=== PATIENT | female | born 1940 | race Caucasian/White ===

== ENCOUNTER → 2016-10-27 | Outpatient (CLI) | payer MEDICARE, BC ==
--- NOTE | 2016-10-27 09:41 | US ---
EXAMINATION TYPE: US Abdomen Limited DATE OF EXAM: 10/27/2016 9:25 AM COMPARISON: Previous study dated 09/25/2015. CLINICAL HISTORY: K74.60 Cirrhosis Of Liver. EXAM MEASUREMENTS: Liver Length: 17.5cm Gallbladder Wall: 0.3cm CBD: 0.5cm Right Kidney: 11.0 x 5.0 x 4.6cm ANATOMY: Pancreas: wnl Liver: wnl Color flow patency within the portal vein: yes Portal Vein Flow: Hepatopetal Gallbladder: borderline wall thickness, otherwise wnl Evidence for sonographic Sahni's sign: no CBD: 5 mm Right Kidney: wnl Ascites noted? Scant amount near dome The pancreas is unremarkable. The liver is normal without biliary dilatation. There is thickening of the gallbladder wall which measures 3.1 mm. There are no stones identified. Distal common hepatic duct measures 5.3 mm. The right kidney is normal. Visualized portions of the aorta and IVC are unremarkable. IMPRESSION: MILD THICKENING OF THE GALLBLADDER WALL. PLEASE CORRELATE CLINICALLY TO EXCLUDE ACALCULOUS CHOLECYSTITIS. MTDD
== END ==
LOC: RADUSWWP 08:37
DX: K74.60 Unspecified cirrhosis of liver (principal)
CPT/HCPCS: 76705; 93976

== ENCOUNTER → 2016-10-30 | Outpatient (CLI) | payer MEDICARE, BC ==
[2016-10-30 15:19] LABS: CH 29.6; HCT 45.9 % (34.0-46.0); HDW 2.49; HGB 15.4 gm/dL (11.4-16.0); MCH 30.1 pg (25.0-35.0); MCHC 33.5 g/dL (31.0-37.0); MCV 89.9 fL (80.0-100.0); Mean Platelet Volume 8.3; RDW 13.9 % (11.5-15.5); WBC 6.4 k/uL (3.8-10.6)
[2016-10-30 15:28] LABS: Bilirubin, Delta 0.3 mg/dL (0.0-0.2); Total Bilirubin 0.6 mg/dL (0.2-1.3); Total Protein 7.7 g/dL (6.3-8.2)
[2016-10-30 15:33] LABS: INR 1.3 (<1.1); Partial Thromboplastin Time 26.4 sec (22.0-30.0); Prothrombin Time 13.1 sec (9.0-12.0)
== END | disposition home or self-care (01) ==
LOC: LABWHC1 14:43
PROVIDERS: ATTEND Physician Assistant
DX: K74.60 Unspecified cirrhosis of liver (principal)
CPT/HCPCS: 36415; 80076; 82105; 85027; 85610; 85730

== ENCOUNTER 2017-04-07 14:31 | Emergency (ER) | payer MEDICARE, BC ==
[2017-04-07] MEDS ORDERED: KETOROLAC 60 MG/2 ML VIAL IM STA (16:29)
[2017-04-07] MEDS ORDERED: DIAZEPAM 5 MG/ML 2 ML SYRINGE IM ONE (16:29)
--- NOTE | 2017-04-07 16:32 | ED ---
General Adult HPI - General Chief complaint: Back Pain/Injury Stated complaint: discharge vag/back & neck pain/urinating excessive Time Seen by Provider: 04/07/17 15:00 Source: patient, RN notes reviewed Mode of arrival: wheelchair Limitations: no limitations - History of Present Illness Initial comments: This is a 76-year-old female who presents emergency Department complaining of a two-week history of lower back pain which is across the whole back. Patient states it's worse with bending worse with twisting. Patient states it's better when she lies still. Patient denies any numbness weakness. Patient states she' s had chronic back problems her whole life. Patient denies any recent injury or trauma. Patient also is complaining about urinary frequency for the last 2 weeks. Patient also plays is some dysuria but no hematuria. Patient denies any fever chills. Patient denies any abdominal pain patient denies nausea vomiting diarrhea. Patient told the nurse that she has had vaginal discomfort over the last couple weeks however patient's states she does not have any currently. - Related Data Home Medications Medication Instructions Recorded Confirmed Albuterol Sulfate [Proair Hfa] 2 puff INHALATION RT-Q4H PRN 03/23/14 04/07/17 Levothyroxine Sodium [Synthroid] 25 mcg PO DAILY 03/23/14 04/07/17 Lisinopril [Zestril] 20 mg PO DAILY 03/23/14 04/07/17 Montelukast [Singulair] 10 mg PO HS 03/23/14 04/07/17 Oxybutynin Chloride [Ditropan XL] 10 mg PO DAILY 03/23/14 04/07/17 Diazepam 5 mg PO BID 06/13/15 04/07/17 HYDROcodone/APAP 5-325MG [[place] 1 tab PO Q6H PRN 06/13/15 04/07/17 5-325] Multivit-Min/FA/Lycopen/Lutein 1 tab PO DAILY 06/13/15 04/07/17 [Centrum Silver Tablet] Atenolol [Tenormin] 25 mg PO DAILY 04/07/17 04/07/17 Fluticasone Propionate [Flonase 1 spray EA NOSTRIL DAILY PRN 04/07/17 04/07/17 Allergy Relief] Niacin 500 mg PO BID 04/07/17 04/07/17 Sodium Chloride [[place]] 1 spray EA NOSTRIL DAILY PRN 04/07/17 04/07/17 amLODIPine [Norvasc] 2.5 mg PO BID 04/07/17 04/07/17 Previous Rx's Medication Instructions Recorded Apixaban [Eliquis] 5 mg PO BID #60 tab 06/13/15 Sulfamethox-Tmp 800-160Mg [Bactrim 1 each PO Q12HR #14 tab 04/07/17 DS 800-160 mg] Allergies Allergy/AdvReac Type Severity Reaction Status Date / Time venom-wasp [Wasp Venom] Allergy Severe Swelling Verified 04/07/17 15:03 adhesive Allergy Unknown Rash/Hives Verified 04/07/17 15:03 amoxicillin [Amoxicillin] Allergy Unknown Rash/Hives Verified 04/07/17 15:03 fenofibrate nanocrystallized Allergy Unknown Rash/Hives Verified 04/07/17 15:03 [From Tricor] fenofibrate,micronized Allergy Unknown Rash/Hives Verified 04/07/17 15:03 [From Tricor] hydrochlorothiazide Allergy Unknown Rash/Hives Verified 04/07/17 15:03 Neuromuscular Blockers, Allergy Unknown Rash/Hives Verified 04/07/17 15:03 Steroidal [Steroidal Neuromuscular Blockers] Penicillins Allergy Unknown Rash/Hives Verified 04/07/17 15:03 shellfish derived Allergy Unknown SKIN RED Verified 04/07/17 15:03 AND WARM simvastatin [From Zocor] Allergy Unknown Rash/Hives Verified 04/07/17 15:03 Nzdcrko-Yaq-Czc Reductase Allergy Unknown Rash/Hives Verified 04/07/17 15:03 Inhibitor venom-honey bee Allergy Unknown Swelling Verified 04/07/17 15:03 [bee venom (honey bee)] ciprofloxacin [From Cipro] Allergy Unknown Verified 04/07/17 15:03 ciprofloxacin HCl Allergy Unknown Verified 04/07/17 15:03 [From Cipro] clarithromycin Allergy Unknown Verified 04/07/17 16:37 minocycline Allergy Unknown Verified 04/07/17 16:37 soy Allergy Unknown Verified 04/07/17 16:37 talc Allergy Unknown Verified 04/07/17 16:37 walnut Allergy Unknown Verified 04/07/17 16:37 Review of Systems ROS Statement: Those systems with pertinent positive or pertinent negative responses have been documented in the HPI. ROS Other: All systems not noted in ROS Statement are negative. Past Medical History Past Medical History: Atrial Fibrillation, Asthma, Diabetes Mellitus, Deep Vein Thrombosis (DVT), Hyperlipidemia, Hypertension, Liver Disease, Osteoarthritis ( OA), Pulmonary Embolus (PE) Additional Past Medical History / Comment(s): VERTIGO, CIRRHOSIS, DIABETES ( DIET CONTROLLED), OVER ACTIVE BLADDER, DVT & PE AFTER LEG FX. WEARS DENTAL SPACER TO PREVENT GRINDING TEETH. History of Any Multi-Drug Resistant Organisms: None Reported Past Surgical History: Back Surgery, Breast Surgery, Hysterectomy, Joint Replacement, Orthopedic Surgery Additional Past Surgical History / Comment(s): CATARACTS, RT BREAST FATTY TUMOR , ROSI KNEE REPLACEMENT, ROSI SHOULDER REPLACEMENT, NECK FUSION, ROSI CARPAL TUNNEL , ROSI TRIGGER FINGER, RT FOOT BONE SPUR, RIGHT LEG FX. Past Anesthesia/Blood Transfusion Reactions: Motion Sickness, Postoperative Nausea & Vomiting (PONV) Past Psychological History: No Psychological Hx Reported Smoking Status: Former smoker Past Alcohol Use History: None Reported Past Drug Use History: None Reported General Exam - General Exam Comments Initial Comments: GENERAL: Patient is well-developed and well-nourished. Patient is nontoxic and well- hydrated and is in mild distress ENT: Neck is soft and supple. No significant lymphadenopathy is noted. Oropharynx is clear. Moist mucous membranes. Neck has full range of motion without eliciting any pain. EYES: The sclera were anicteric and conjunctiva were pink and moist. Extraocular movements were intact and pupils were equal round and reactive to light. Eyelids were unremarkable. PULMONARY: Unlabored respirations. Good breath sounds bilaterally. No audible rales rhonchi or wheezing was noted. CARDIOVASCULAR: There is a regular rate and rhythm without any murmurs gallops or rubs. ABDOMEN: Soft and nontender with normal bowel sounds. No palpable organomegaly was noted. There is no palpable pulsatile mass. SKIN: Skin is clear with no lesions or rashes and otherwise unremarkable. NEUROLOGIC: Patient is alert and oriented x3. Cranial nerves II through XII are grossly intact. Motor and sensory are also intact. Normal speech, volume and content. Symmetrical smile. MUSCULOSKELETAL: Normal extremities with adequate strength and full range of motion. Patient's back was nontender to palpation LYMPHATICS: No significant lymphadenopathy is noted PSYCHIATRIC: Normal psychiatric evaluation. Limitations: no limitations Course Vital Signs 04/07/17 04/07/17 15:00 18:43 Temperature 98.1 F 97.7 F Pulse Rate 67 60 Respiratory 20 18 Rate Blood Pressure 135/70 150/72 O2 Sat by Pulse 98 98 Oximetry Medical Decision Making - Medical Decision Making Patient states her pain is down to a 2 out of 10 after the medication. - Lab Data Lab Results 04/07/17 Range/Units 16:34 Urine Color Light Yellow Urine Appearance Clear (Clear) Urine pH 6.0 (5.0-8.0) Ur Specific [place] 1.003 (1.001-1.035) Urine Protein Negative (Negative) Urine Glucose (UA) Negative (Negative) Urine Ketones Negative (Negative) Urine Blood Negative (Negative) Urine Nitrite Negative (Negative) Urine Bilirubin Negative (Negative) Urine Urobilinogen <2.0 (<2.0) mg/dL Ur Leukocyte Esterase Large H (Negative) Urine RBC 1 (0-5) /hpf Urine WBC 29 H (0-5) /hpf Urine Bacteria Many H (None) /hpf Disposition Clinical Impression: Strain of lumbar region, Urinary tract infection Disposition: HOME SELF-CARE Condition: Good Instructions: Urinary Tract Infection in Women (ED), Acute Low Back Pain (ED) Prescriptions: Sulfamethox-Tmp 800-160Mg [Bactrim DS 800-160 mg] 1 each PO Q12HR #14 tab Referrals: Shea Amezcua MD [Primary Care Provider] - 1-2 days Time of Disposition: 18:36
[2017-04-07] MEDS ORDERED: ORPHENADRINE 30 MG/ML 2 ML VIAL IM STA (16:45)
[2017-04-07 16:50] LABS: Appearance,Urine Clear (Clear); Bacteria,Urine Many /hpf; Bilirubin,Urine Negative (Negative); Glucose,Urine (UA) Negative (Negative); Ketones,Urine Negative (Negative); Leukocyte Esterase,Urine Large (Negative); Nitrite,Urine Negative (Negative); Particle Count 5362; Protein,Urine Negative (Negative); RBC,Urine 1 /hpf (0-5); Specific Gravity,Urine 1.003 (1.001-1.035); UA Billing (MACRO vs. MICRO) MICRO; Urobilinogen,Urine <2.0 mg/dL (<2.0); WBC,Urine 29 /hpf (0-5)
[2017-04-07] MEDS ORDERED: cefTRIAXone 250 MG VIAL IM STA (17:30)
[2017-04-07] MEDS ORDERED: cefTRIAXone 1,000 MG VIAL (IM USE) IM ONE (17:45)
--- NOTE | 2017-04-07 17:50 | XR ---
EXAMINATION TYPE: XR lumbosacral spine min 4V DATE OF EXAM: 04/07/2017 COMPARISON: NONE HISTORY: Back pain TECHNIQUE: 5 views FINDINGS: There are rods and screws fusing posteriorly the lumbar spine from L4 to L2. There is disc prosthesis at L3-4. There is narrowing of disc spaces throughout the lumbar spine with sclerosis seen at L4-5 and L5-S1 discs. I see no compression fracture. Abdominal aorta is atheromatous. There is a plate with screws fusing anteriorly L3 and L4. Sacroiliac joints are intact. IMPRESSION: Previous surgery. No compression fracture seen. Spondylotic changes.
[2017-04-07 18:44] VITALS: BP 150/72; PULSE 60; RESP 18; TEMP 97.7
== END 2017-04-07 18:45 | disposition home or self-care (01) ==
LOC: EC 14:31
DX: S39.012A Strain of muscle, fascia and tendon of lower back, initial encounter (principal); N39.0 Urinary tract infection, site not specified; E78.5 Hyperlipidemia, unspecified; I10 Essential (primary) hypertension; J45.909 Unspecified asthma, uncomplicated; N32.81 Overactive bladder; Z87.891 Personal history of nicotine dependence; Z79.899 Other long term (current) drug therapy; Z88.0 Allergy status to penicillin; Z88.1 Allergy status to other antibiotic agents; Z88.8 Allergy status to other drugs, medicaments and biological substances; Z91.013 Allergy to seafood; Z91.018 Allergy to other foods; Z91.030 Bee allergy status; Z91.09 Other allergy status, other than to drugs and biological substances; Z98.1 Arthrodesis status
CPT/HCPCS: 81001; 72110; 99283; 96372 ×3; J2360; J0696; J1885

== ENCOUNTER 2017-09-02 12:02 | Emergency (ER) | payer BC, MEDICARE ==
[2017-09-02 12:19] VITALS: TEMP 97.8
[2017-09-02] MEDS ORDERED: DIPH,PERTUS(ACELL)TETVAC-LF 0.5 ML VIAL IM ONE (12:34)
[2017-09-02] MEDS ORDERED: LIDOCAINE 1%-EPI 1:100,000 20 ML VIAL SQ STA (12:35)
[2017-09-02] MEDS ORDERED: BUPIVACAINE (PF) 0.5% 30 ML VIAL SQ STA (12:35)
--- NOTE | 2017-09-02 13:38 | CT ---
EXAMINATION TYPE: CT brain angelica donald DATE OF EXAM: 09/02/2017 COMPARISON: NONE HISTORY: Patient complains of headache , neck pain, and laceration after fall with blow to posterior head. CT DLP: 1593 mGycm. Automated Exposure Control for Dose Reduction was Utilized. TECHNIQUE: CT scan of the head and cervical spine are performed without contrast. FINDINGS: There is no acute intracranial hemorrhage or midline shift identified. There is ventricul ar and sulcal prominence consistent with diffuse cerebral atrophy. Some areas of low-attenuation janet ventricular white matter are present. The visualized globes are intact and the visualized sinuses are clear. The calvarium is intact. Cervical spine is visualized in its entirety from C1 through upper thoracic levels and demonstrates s atisfactory alignment without evidence of acute fracture or dislocation. Prevertebral soft tissue ap pears within normal limits. The C1-C2 articulation is within normal limits on the coronal images. There is anterior fusion plate with metallic disc material C5-C7 levels. Some desired ossific fusion at these levels is identified. There is moderate spurring C4-C5 level with posterior epidural calcifi cation. Posterior ossification effacing anterior thecal sac C6-C7 level on sagittal image 27. Review of axial images shows bilateral uncovertebral facet degenerative changes C3-C4 level contribut ing to mild to moderate left-sided neural foraminal narrowing in right-sided uncovertebral facet dege nerative changes C4-C5 level. Thyroid gland is overall small in size. Visualized lung apices are rosa m r. There is artifact degradation from bilateral shoulder arthroplasties noted. IMPRESSION: 1. There is no acute fracture or dislocation evident in the cervical spine. 2. No acute intracranial hemorrhage or midline shift is seen.
--- NOTE | 2017-09-02 14:45 | ED ---
Fall HPI - General Chief Complaint: Fall Stated Complaint: FALL, HEAD LAC Time Seen by Provider: 09/02/17 12:28 Source: patient Mode of arrival: EMS - History of Present Illness Initial Comments: This 77-year-old white female presents with a complaint of a fall and head injury. She states that she was trying to sleep in her kitchen when she got tripped up and fell. She didn't hit her superior occiput and obtained a laceration. She denies any loss of consciousness, nausea, vomiting, paresthesias, problems with speech, problems with vision, or other neurologic complaints. This occurred just prior to arrival. She did have some mild bleeding. She is currently on blood thinners. She also states that she is on an unknown antibiotic currently for a sinus infection. She denies any other complaints or modifying factors. She denies any other injuries. - Related Data Home Medications Medication Instructions Recorded Confirmed Levothyroxine Sodium [Synthroid] 25 mcg PO DAILY 03/23/14 09/02/17 Montelukast [Singulair] 10 mg PO HS 03/23/14 09/02/17 Oxybutynin Chloride [Ditropan XL] 10 mg PO DAILY 03/23/14 09/02/17 HYDROcodone/APAP 5-325MG [[place] 1 tab PO QID MDD PAIN 06/13/15 09/02/17 5-325] Multivit-Min/FA/Lycopen/Lutein 1 tab PO DAILY 06/13/15 09/02/17 [Centrum Silver Tablet] Niacin 500 mg PO BID 04/07/17 09/02/17 amLODIPine [Norvasc] 2.5 mg PO BID 04/07/17 09/02/17 Cefadroxil [Duricef] 500 mg PO Q12HR 09/02/17 09/02/17 Diazepam [Valium] 2.5 mg PO BID 09/02/17 09/02/17 Lisinopril [Zestril] 20 mg PO DAILY 09/02/17 09/02/17 Metoprolol Succinate [Toprol XL] 25 mg PO DAILY 09/02/17 09/02/17 Previous Rx's Medication Instructions Recorded Apixaban [Eliquis] 5 mg PO BID #60 tab 06/13/15 Allergies Allergy/AdvReac Type Severity Reaction Status Date / Time venom-wasp [Wasp Venom] Allergy Severe Swelling Verified 04/07/17 15:03 adhesive Allergy Unknown Rash/Hives Verified 04/07/17 15:03 amoxicillin [Amoxicillin] Allergy Unknown Rash/Hives Verified 04/07/17 15:03 fenofibrate nanocrystallized Allergy Unknown Rash/Hives Verified 04/07/17 15:03 [From Tricor] fenofibrate,micronized Allergy Unknown Rash/Hives Verified 09/02/17 12:30 [From Tricor] hydrochlorothiazide Allergy Unknown Rash/Hives Verified 09/02/17 12:30 Neuromuscular Blockers, Allergy Unknown Rash/Hives Verified 09/02/17 12:30 Steroidal [Steroidal Neuromuscular Blockers] Penicillins Allergy Unknown Rash/Hives Verified 09/02/17 12:30 shellfish derived Allergy Unknown SKIN RED Verified 09/02/17 12:30 AND WARM simvastatin [From Zocor] Allergy Unknown Rash/Hives Verified 09/02/17 12:30 Eggootx-Jjr-Lil Reductase Allergy Unknown Rash/Hives Verified 09/02/17 12:30 Inhibitor venom-honey bee Allergy Unknown Swelling Verified 09/02/17 12:30 [bee venom (honey bee)] ciprofloxacin [From Cipro] Allergy Unknown Verified 09/02/17 12:30 ciprofloxacin HCl Allergy Unknown Verified 09/02/17 12:30 [From Cipro] clarithromycin Allergy Unknown Verified 09/02/17 12:30 minocycline Allergy Unknown Verified 09/02/17 12:30 soy Allergy Unknown Verified 09/02/17 12:30 talc Allergy Unknown Verified 09/02/17 12:30 walnut Allergy Unknown Verified 09/02/17 12:30 Review of Systems ROS Statement: Those systems with pertinent positive or pertinent negative responses have been documented in the HPI. ROS Other: All systems not noted in ROS Statement are negative. Past Medical History Past Medical History: Atrial Fibrillation, Asthma, Diabetes Mellitus, Deep Vein Thrombosis (DVT), Hyperlipidemia, Hypertension, Liver Disease, Osteoarthritis ( OA), Pulmonary Embolus (PE) Additional Past Medical History / Comment(s): VERTIGO, CIRRHOSIS, DIABETES ( DIET CONTROLLED), OVER ACTIVE BLADDER, DVT & PE AFTER LEG FX. WEARS DENTAL SPACER TO PREVENT GRINDING TEETH. History of Any Multi-Drug Resistant Organisms: None Reported Past Surgical History: Back Surgery, Breast Surgery, Hysterectomy, Joint Replacement, Orthopedic Surgery Additional Past Surgical History / Comment(s): CATARACTS, RT BREAST FATTY TUMOR , ROSI KNEE REPLACEMENT, ROSI SHOULDER REPLACEMENT, NECK FUSION, ROSI CARPAL TUNNEL , ROSI TRIGGER FINGER, RT FOOT BONE SPUR, RIGHT LEG FX. Past Anesthesia/Blood Transfusion Reactions: Motion Sickness, Postoperative Nausea & Vomiting (PONV) Past Psychological History: No Psychological Hx Reported Smoking Status: Former smoker Past Alcohol Use History: None Reported Past Drug Use History: None Reported General Exam - General Exam Comments Initial Comments: GENERAL: The patient is well nourished and well hydrated. VITAL SIGNS: Heart rate, blood pressure, respiratory rate reviewed as recorded in nurse's notes. EYES: Pupils are round and reactive. Extraocular movements are intact. No conjunctival / lid redness or swelling. ENT: There is a 4 cm posterior superior scalp laceration noted that is minimally deep. No foreign bodies noted. No active bleeding noted. Airway is patent. Throat is clear. NECK: There is mild tenderness in the bilateral paracervical musculature. No swelling or evidence of injury. No subcutaneous emphysema. Trachea is midline. No thyroid mass. HEART: Regular rate and rhythm. Good peripheral pulses. LUNGS/CHEST: Breath sounds clear and equal bilaterally. No rales, rhonchi, or wheezes. No ecchymosis, subcutaneous emphysema, or tenderness. ABDOMEN: Abdomen soft without tenderness. No palpable masses or organomegaly. No peritoneal signs. No abdominal wall swelling or ecchymosis. EXTREMITIES: No extremity tenderness. Normal muscle tone and function. No thoracolumbar tenderness. NEUROLOGIC: Sensation is grossly intact. Cranial nerve exam reveals face is symmetrical, tongue is midline, speech is clear. SKIN: No abrasions or ecchymosis is noted. No induration or masses noted. PSYCHIATRIC: Alert and oriented. Appropriate behavior and judgment. Course Vital Signs 09/02/17 09/02/17 12:15 13:35 Temperature 97.8 F Pulse Rate 92 90 Respiratory 18 18 Rate Blood Pressure 165/82 158/102 O2 Sat by Pulse 97 97 Oximetry Medical Decision Making - Medical Decision Making The patient was seen and examined. All diagnostics were reviewed. She had a computed tomography scan of her brain and cervical spine. This does not show any acute pathology. The cervical spine shows postoperative and degenerative changes. The wound was anesthetized with some lidocaine with epinephrine and bupivacaine. Excellent anesthesia is obtained. The wound was thoroughly cleansed and explored. No foreign bodies are identified. No significant bleeding noted. The wound was closed with 10 reji. No cough medications were encountered. Antibiotic ointment is applied. She was offered admission to the hospital as she is on Xaralto but she does refuse. Risks and benefits are discussed. Return parameters are discussed. Disposition Clinical Impression: Fall, Head injury, Scalp laceration, Hypertension Disposition: HOME SELF-CARE Condition: Good Instructions: Fall Prevention for Older Adults (ED), Head Injury (ED), Laceration (ED), Hypertension (ED) Additional Instructions: Please return if any neurologic symptoms do occur as discussed. Please have your reji out by primary care physician and 10-12 days. Referrals: Shea Amezcua MD [Primary Care Provider] - 1-2 days Time of Disposition: 14:44
[2017-09-02 15:08] VITALS: BP 154/73; PULSE 91; RESP 16
== END 2017-09-02 15:08 | disposition home or self-care (01) ==
LOC: EC 12:02
DX: S01.01XA Laceration without foreign body of scalp, initial encounter (principal); M54.2 Cervicalgia; I10 Essential (primary) hypertension; I48.91 Unspecified atrial fibrillation; E78.5 Hyperlipidemia, unspecified; J45.909 Unspecified asthma, uncomplicated; Z23 Encounter for immunization; Z87.891 Personal history of nicotine dependence; Z79.899 Other long term (current) drug therapy; Z88.0 Allergy status to penicillin; Z91.030 Bee allergy status; Z91.013 Allergy to seafood; Z88.1 Allergy status to other antibiotic agents; Z88.8 Allergy status to other drugs, medicaments and biological substances; Z91.018 Allergy to other foods; Z91.048 Other nonmedicinal substance allergy status; W01.0XXA Fall on same level from slipping, tripping and stumbling without subsequent striking against object, initial encounter; Y92.000 Kitchen of unspecified non-institutional (private) residence as the place of occurrence of the external cause
CPT/HCPCS: 12002; 70450; 72125; 90471; 90715; 99284

== ENCOUNTER → 2018-01-14 | Outpatient (CLI) | payer MEDICARE ==
[2018-01-14 11:42] LABS: Basophils % (A) 0 %; Eosinophils # (A) 0.1 k/uL (0-0.7); Eosinophils % (A) 1 %; HGB 13.2 gm/dL (11.4-16.0); Lymphocytes # (A) 0.8 k/uL (1.0-4.8); Lymphocytes % (A) 12 %; MCH 26.4 pg (25.0-35.0); MCHC 32.1 g/dL (31.0-37.0); Mean Platelet Volume 8.2; Monocytes # (A) 0.4 k/uL (0-1.0); Monocytes % (A) 6 %; Neutrophils # (A) 5.1 k/uL (1.3-7.7); Neutrophils % (A) 80 %; Platelet Count 147 k/uL (150-450); RDW 14.5 % (11.5-15.5); WBC 6.4 k/uL (3.8-10.6)
== END | disposition home or self-care (01) ==
LOC: LABWHC1 10:51
PROVIDERS: ATTEND Physical Medicine & Rehabilitation
DX: E11.8 Type 2 diabetes mellitus with unspecified complications (principal); G89.4 Chronic pain syndrome; M51.16 Intervertebral disc disorders with radiculopathy, lumbar region; M47.26 Other spondylosis with radiculopathy, lumbar region; Z79.01 Long term (current) use of anticoagulants; Z98.1 Arthrodesis status
CPT/HCPCS: 36415; 85025

== ENCOUNTER → 2019-09-15 | Outpatient (CLI) | payer MEDICARE ==
[2019-09-15 15:59] LABS: African American GFR (CKD) 96.2 (60.0-200.0); Anion Gap 7.4 mmol/L (4.00-12.00); BUN/Creat Ratio 17.14 Ratio (12.00-20.00); Calcium 9.6 mg/dL (8.7-10.3); Carbon Dioxide 27.6 mmol/L (21.6-31.8); Chol/HDL Ratio 3.87; LDL Cholesterol,Calculated 61.8 mg/dL (0.0-131.0); Potassium 4.6 mmol/L (3.5-5.5); VLDL Calculation 50.2 mg/dL (5.00-40.00)
== END | disposition home or self-care (01) ==
LOC: LABWHC1 10:06
PROVIDERS: ATTEND Physician Assistant
DX: I10 Essential (primary) hypertension (principal); E78.5 Hyperlipidemia, unspecified
CPT/HCPCS: 36415; 80048; 80061

== ENCOUNTER → 2019-12-26 | Outpatient (CLI) | payer MEDICARE ==
[2019-12-26 17:43] LABS: Chol/HDL Ratio 2.7; LDL Cholesterol,Calculated 25.8 mg/dL (0.0-131.0); VLDL Calculation 37.2 mg/dL (5.00-40.00)
== END | disposition home or self-care (01) ==
LOC: LABWHC1 08:05
PROVIDERS: ATTEND Physician Assistant
DX: E78.5 Hyperlipidemia, unspecified (principal)
CPT/HCPCS: 36415; 80061

== ENCOUNTER 2020-03-14 15:49 | Inpatient (IN) | payer MEDICARE ==
--- NOTE | 2020-03-14 16:07 | ED ---
SOB HPI - General Chief Complaint: Shortness of Breath Stated Complaint: SOB Time Seen by Provider: 03/14/20 16:06 Source: patient, RN notes reviewed, old records reviewed Mode of arrival: wheelchair Limitations: no limitations - History of Present Illness Initial Comments: This is a 71-year-old female DF for evaluation patient has persistent shortness of breath significant shortness of breath especially with exertion related to inability take a deep breath. Patient has significant waking about 10 pounds lately with a significant amount of abdominal fluid or abdominal distention. Patient feels that she has for fluid sent DF for evaluation of primary care secondary significant amount of abdominal fluid. No prior history of similar complaint. MD Complaint: shortness of breath, chest pain, pain with inspiration -: days(s) Severity: moderate Severity scale (1-10): 7 Quality: aching, throbbing (Abdominal pain) Consistency: constant Improves With: nothing Worsens With: nothing Context: recent URI Associated Symptoms: denies other symptoms - Related Data Home Medications Medication Instructions Recorded Confirmed Levothyroxine Sodium [Synthroid] 25 mcg PO DAILY 03/23/14 09/02/17 Montelukast [Singulair] 10 mg PO HS 03/23/14 09/02/17 Oxybutynin Chloride [Ditropan XL] 10 mg PO DAILY 03/23/14 09/02/17 HYDROcodone/APAP 5-325MG [[place] 1 tab PO QID MDD PAIN 06/13/15 09/02/17 5-325] Multivit-Min/FA/Lycopen/Lutein 1 tab PO DAILY 06/13/15 09/02/17 [Centrum Silver Tablet] Niacin 500 mg PO BID 04/07/17 09/02/17 amLODIPine [Norvasc] 2.5 mg PO BID 04/07/17 09/02/17 Metoprolol Succinate [Toprol XL] 25 mg PO DAILY 09/02/17 09/02/17 cefaDROXiL [Duricef] 500 mg PO Q12HR 09/02/17 09/02/17 diazePAM [Valium] 2.5 mg PO BID 09/02/17 09/02/17 lisinopriL [Zestril] 20 mg PO DAILY 09/02/17 09/02/17 Previous Rx's Medication Instructions Recorded Apixaban [Eliquis] 5 mg PO BID #60 tab 06/13/15 Allergies Allergy/AdvReac Type Severity Reaction Status Date / Time venom-wasp [Wasp Venom] Allergy Severe Swelling Verified 03/14/20 16:00 adhesive Allergy Unknown Rash/Hives Verified 03/14/20 16:00 amoxicillin [Amoxicillin] Allergy Unknown Rash/Hives Verified 03/14/20 16:00 fenofibrate nanocrystallized Allergy Unknown Rash/Hives Verified 03/14/20 16:00 [From Tricor] fenofibrate,micronized Allergy Unknown Rash/Hives Verified 03/14/20 16:00 [From Tricor] hydrochlorothiazide Allergy Unknown Rash/Hives Verified 03/14/20 16:00 Neuromuscular Blockers, Allergy Unknown Rash/Hives Verified 03/14/20 16:00 Steroidal [Steroidal Neuromuscular Blockers] Penicillins Allergy Unknown Rash/Hives Verified 03/14/20 16:00 shellfish derived Allergy Unknown SKIN RED Verified 03/14/20 16:00 AND WARM simvastatin [From Zocor] Allergy Unknown Rash/Hives Verified 03/14/20 16:00 Balpgin-Zsk-Hzl Reductase Allergy Unknown Rash/Hives Verified 03/14/20 16:00 Inhibitor venom-honey bee Allergy Unknown Swelling Verified 03/14/20 16:00 [bee venom (honey bee)] ciprofloxacin [From Cipro] Allergy Unknown Verified 03/14/20 16:00 ciprofloxacin HCl Allergy Unknown Verified 03/14/20 16:00 [From Cipro] clarithromycin Allergy Unknown Verified 03/14/20 16:00 minocycline Allergy Unknown Verified 03/14/20 16:00 soy Allergy Unknown Verified 03/14/20 16:00 talc Allergy Unknown Verified 03/14/20 16:00 walnut Allergy Unknown Verified 03/14/20 16:00 Review of Systems ROS Statement: Those systems with pertinent positive or pertinent negative responses have been documented in the HPI. ROS Other: All systems not noted in ROS Statement are negative. Past Medical History Past Medical History: Atrial Fibrillation, Asthma, Diabetes Mellitus, Deep Vein Thrombosis (DVT), Hyperlipidemia, Hypertension, Liver Disease, Osteoarthritis (OA), Pulmonary Embolus (PE) Additional Past Medical History / Comment(s): VERTIGO, CIRRHOSIS, DIABETES (DIET CONTROLLED), OVER ACTIVE BLADDER, DVT & PE AFTER LEG FX. WEARS DENTAL SPACER TO PREVENT GRINDING TEETH. History of Any Multi-Drug Resistant Organisms: None Reported Past Surgical History: Back Surgery, Breast Surgery, Hysterectomy, Joint Replacement, Orthopedic Surgery Additional Past Surgical History / Comment(s): CATARACTS, RT BREAST FATTY TUMOR, ROSI KNEE REPLACEMENT, ROSI SHOULDER REPLACEMENT, NECK FUSION, ROSI CARPAL TUNNEL, ROSI TRIGGER FINGER, RT FOOT BONE SPUR, RIGHT LEG FX. Past Anesthesia/Blood Transfusion Reactions: Motion Sickness, Postoperative Nausea & Vomiting (PONV) Past Psychological History: No Psychological Hx Reported Smoking Status: Never smoker Past Alcohol Use History: None Reported Past Drug Use History: None Reported General Exam Limitations: no limitations General appearance: alert, in no apparent distress Head exam: Present: atraumatic, normocephalic, normal inspection Eye exam: Present: normal appearance, PERRL, EOMI. Absent: scleral icterus, conjunctival injection, periorbital swelling ENT exam: Present: normal exam, mucous membranes moist Neck exam: Present: normal inspection. Absent: tenderness, meningismus, lymphadenopathy Respiratory exam: Present: normal lung sounds bilaterally. Absent: respiratory distress, wheezes, rales, rhonchi, stridor Cardiovascular Exam: Present: regular rate, normal rhythm, normal heart sounds. Absent: systolic murmur, diastolic murmur, rubs, gallop, clicks GI/Abdominal exam: Present: soft, distended, tenderness, normal bowel sounds. Absent: guarding, rebound, rigid Extremities exam: Present: normal inspection, full ROM, normal capillary refill. Absent: tenderness, pedal edema, joint swelling, calf tenderness Back exam: Present: normal inspection Neurological exam: Present: alert, oriented X3, CN II-XII intact Psychiatric exam: Present: normal affect, normal mood Skin exam: Present: warm, dry, intact, normal color. Absent: rash Course Vital Signs 03/14/20 03/14/20 03/14/20 15:56 17:03 17:30 Temperature 97.9 F Pulse Rate 73 82 73 Respiratory 20 17 14 Rate Blood Pressure 160/76 155/87 155/87 O2 Sat by Pulse 99 97 96 Oximetry - Reevaluation(s) Reevaluation #1: 03/14/20 18:11 Medical records reviewed Reevaluation #2: 03/14/20 18:11 Patient does have history of liver disease, informed of need for fluid drainage of abdomen - Consultations Consultation #1: Spoke with Dr. Ayon who agrees to admit this patient Medical Decision Making - Medical Decision Making 79 female significant abdominal pain ascites and unable to take a deep breath. Patient will be admitted for therapeutic and diagnostic paracentesis - Lab Data Result diagrams: 03/14/20 16:27 03/14/20 16:27 Lab Results 03/14/20 03/14/20 03/14/20 Range/Units 16:27 16:27 16:27 WBC 5.7 (3.8-10.6) k/uL RBC 4.99 (3.80-5.40) m/uL Hgb 10.3 L (11.4-16.0) gm/dL Hct 35.6 (34.0-46.0) % MCV 71.3 L (80.0-100.0) fL MCH 20.6 L (25.0-35.0) pg MCHC 28.9 L (31.0-37.0) g/dL RDW 17.4 H (11.5-15.5) % Plt Count 199 (150-450) k/uL Neutrophils % 75 % Lymphocytes % 14 % Monocytes % 7 % Eosinophils % 2 % Basophils % 0 % Neutrophils # 4.2 (1.3-7.7) k/uL Lymphocytes # 0.8 L (1.0-4.8) k/uL Monocytes # 0.4 (0-1.0) k/uL Eosinophils # 0.1 (0-0.7) k/uL Basophils # 0.0 (0-0.2) k/uL Hypochromasia Marked Anisocytosis Slight Microcytosis Moderate PT 13.1 H (9.0-12.0) sec INR 1.3 H (<1.2) APTT 27.9 (22.0-30.0) sec Sodium 136 L (137-145) mmol/L Potassium 4.3 (3.5-5.1) mmol/L Chloride 104 (98-107) mmol/L Carbon Dioxide 24 (22-30) mmol/L Anion Gap 8 mmol/L BUN 14 (7-17) mg/dL Creatinine 0.51 L (0.52-1.04) mg/dL Est GFR (CKD-EPI)AfAm >90 (>60 ml/min/1.73 sqM) Est GFR (CKD-EPI)NonAf >90 (>60 ml/min/1.73 sqM) Glucose 105 H (74-99) mg/dL Calcium 9.1 (8.4-10.2) mg/dL Magnesium 1.9 (1.6-2.3) mg/dL Total Bilirubin 0.5 (0.2-1.3) mg/dL AST 45 H (14-36) U/L ALT 17 (4-34) U/L Alkaline Phosphatase 80 (38-126) U/L Troponin I (0.000-0.034) ng/mL NT-Pro-B Natriuret Pep pg/mL Total Protein 6.3 (6.3-8.2) g/dL Albumin 4.0 (3.5-5.0) g/dL 03/14/20 03/14/20 Range/Units 16:27 16:27 WBC (3.8-10.6) k/uL RBC (3.80-5.40) m/uL Hgb (11.4-16.0) gm/dL Hct (34.0-46.0) % MCV (80.0-100.0) fL MCH (25.0-35.0) pg MCHC (31.0-37.0) g/dL RDW (11.5-15.5) % Plt Count (150-450) k/uL Neutrophils % % Lymphocytes % % Monocytes % % Eosinophils % % Basophils % % Neutrophils # (1.3-7.7) k/uL Lymphocytes # (1.0-4.8) k/uL Monocytes # (0-1.0) k/uL Eosinophils # (0-0.7) k/uL Basophils # (0-0.2) k/uL Hypochromasia Anisocytosis Microcytosis PT (9.0-12.0) sec INR (<1.2) APTT (22.0-30.0) sec Sodium (137-145) mmol/L Potassium (3.5-5.1) mmol/L Chloride (98-107) mmol/L Carbon Dioxide (22-30) mmol/L Anion Gap mmol/L BUN (7-17) mg/dL Creatinine (0.52-1.04) mg/dL Est GFR (CKD-EPI)AfAm (>60 ml/min/1.73 sqM) Est GFR (CKD-EPI)NonAf (>60 ml/min/1.73 sqM) Glucose (74-99) mg/dL Calcium (8.4-10.2) mg/dL Magnesium (1.6-2.3) mg/dL Total Bilirubin (0.2-1.3) mg/dL AST (14-36) U/L ALT (4-34) U/L Alkaline Phosphatase (38-126) U/L Troponin I <0.012 (0.000-0.034) ng/mL NT-Pro-B Natriuret Pep 486 pg/mL Total Protein (6.3-8.2) g/dL Albumin (3.5-5.0) g/dL - EKG Data -: EKG Interpreted by Me (EKG atrial fibrillation 92 QRS 78 QTc 425) - Radiology Data Radiology results: report reviewed (ES GB pending), image reviewed Disposition Clinical Impression: Abdominal pain, Ascites Disposition: ADMITTED IP TO THIS [facility] Condition: Good Referrals: Shea Amezcua MD [Primary Care Provider] - 1-2 days
[2020-03-14] MEDS ORDERED: HYDROcodone/APAP 5-325MG 1 EACH TAB PO STA (16:19)
--- NOTE | 2020-03-14 16:53 | XR ---
EXAMINATION TYPE: XR abdomen acute w cxr DATE OF EXAM: 03/14/2020 COMPARISON: NONE HISTORY: Short of breath TECHNIQUE: 4 views FINDINGS: There is no heart failure nor confluent pneumonic infiltrate. Costophrenic angles are clear . There is no sign of intestinal obstruction or pneumoperitoneum. Fecal pattern is normal. There is no evidence of a mass. There are bilateral shoulder prosthesis. There is posterior fusion surgery in the lumbar spine. There are no pathologic calcifications over the kidneys. IMPRESSION: Nonacute abdomen. No active cardiopulmonary disease. Chest unchanged compared to 06/13/2015.
[2020-03-14 17:17] LABS: Anisocytosis Slight; Basophils % (A) 0 %; Eosinophils # (A) 0.1 k/uL (0-0.7); Eosinophils % (A) 2 %; HCT 35.6 % (34.0-46.0); HGB 10.3 gm/dL (11.4-16.0); Hypochromasia Marked; Lymphocytes # (A) 0.8 k/uL (1.0-4.8); Lymphocytes % (A) 14 %; MCH 20.6 pg (25.0-35.0); MCHC 28.9 g/dL (31.0-37.0); MCV 71.3 fL (80.0-100.0); Microcytosis Moderate; Monocytes # (A) 0.4 k/uL (0-1.0); Monocytes % (A) 7 %; Neutrophils # (A) 4.2 k/uL (1.3-7.7); Neutrophils % (A) 75 %; Platelet Count 199 k/uL (150-450); RBC 4.99 m/uL (3.80-5.40); RDW 17.4 % (11.5-15.5); WBC 5.7 k/uL (3.8-10.6)
[2020-03-14 17:27] LABS: ALT 17 U/L (4-34); AST 45 U/L (14-36); African American GFR (CKD) >90 (>60 ml/min/1.73 sqM); Alkaline Phosphatase 80 U/L (38-126); Anion Gap 8 mmol/L; Blood Urea Nitrogen 14 mg/dL (7-17); Calcium 9.1 mg/dL (8.4-10.2); Carbon Dioxide 24 mmol/L (22-30); Chloride 104 mmol/L (98-107); Glucose 105 mg/dL (74-99); Magnesium 1.9 mg/dL (1.6-2.3); Non-African American GFR(CKD) >90 (>60 ml/min/1.73 sqM); Potassium 4.3 mmol/L (3.5-5.1); Sodium 136 mmol/L (137-145); Total Bilirubin 0.5 mg/dL (0.2-1.3); Total Protein 6.3 g/dL (6.3-8.2)
[2020-03-14 17:29] LABS: INR 1.3 (<1.2); Partial Thromboplastin Time 27.9 sec (22.0-30.0); Prothrombin Time 13.1 sec (9.0-12.0)
[2020-03-14] MEDS: IOPAMIDOL CONTRAST (ORAL USE) VIAL PO PRN ×2 (19:14→20:16)
[2020-03-14 19:43] LABS: Appearance,Urine Clear (Clear); Bilirubin,Urine Negative (Negative); Blood,Urine Negative (Negative); Color,Urine Light Yellow; Glucose,Urine (UA) Negative (Negative); Ketones,Urine Negative (Negative); Leukocyte Esterase,Urine Negative (Negative); Nitrite,Urine Negative (Negative); PH, Urine 5.5 (5.0-8.0); Protein,Urine Negative (Negative); Specific Gravity,Urine 1.011 (1.001-1.035); Urobilinogen,Urine <2.0 mg/dL (<2.0)
[2020-03-14 20:37] LABS: Glucose,Whole Blood 123 mg/dL (75-99)
--- NOTE | 2020-03-14 21:19 | CT ---
EXAMINATION TYPE: CT abdomen pelvis wo con DATE OF EXAM: 03/14/2020 COMPARISON: None HISTORY: cirrhosis CT DLP: 1241.4 mGycm Automated exposure control for dose reduction was used. Images were obtained from the diaphragm to the floor the pelvis with oral contrast only. Lung bases are clear. Heart is enlarged. There is no pericardial effusion. There is no pleural effusi on. There is moderate amount of ascites fluid throughout the abdomen. Liver is irregular consistent with cirrhosis. I see no focal liver defect. The bile ducts are not dilated. Spleen is enlarged and measur es 16.5 cm. Stomach is intact. There is normal contrast opacification of the small bowel. Contrast re aches the transverse colon. There is no evidence of a bowel obstruction. There is no adrenal mass. There is no evidence of pancreatic mass. Gallbladder is not seen. Appendix not seen. There is no sign of thickened appendix. Kidneys have normal size. There is no hydronephrosis. Ureters are not dilated. There is no retroperit alexandra adenopathy. There is subcutaneous edema over the lower anterior abdomen. There is no inguinal h ernia. There is descent of the floor the urinary bladder. There is possible mild rectal prolapse on t he sagittal images. There is no evidence of a pelvic mass. There is left hip prosthesis with metal ar tifact. Lumbar vertebra show fairly normal alignment. There is multilevel posterior fusion surgery. There is multilevel disc prosthesis. There is multilevel laminectomy defect with fluid posteriorly at the surg rose site. This has low attenuation and could be chronic seroma or hematoma. I see no significant comp ression deformity. There is bridging osteophyte formation anteriorly in the lower thoracic spine. The bony pelvis appears intact. There is osteoarthritis in the right hip joint. There is degenerative cy sts in the acetabulum. IMPRESSION: Changes of the liver consistent with cirrhosis. Splenomegaly. Moderately severe abdominal ascites. Bladder cystocele. Possible rectal prolapse. No evidence of a bowel obstruction. Subcutaneous edema o adriana the lower anterior abdomen and lower lumbar spine.
[2020-03-14] MEDS ORDERED: FUROSEMIDE 10 MG/ML 4 ML VIAL IV ONE (21:45)
[2020-03-14] MEDS: APIXABAN 5 MG TAB PO SCH (22:12)
[2020-03-14] MEDS: amLODIPine 2.5 MG TAB PO SCH (22:12)
[2020-03-14] MEDS: MONTELUKAST 10 MG TAB PO SCH (22:12)
[2020-03-14] MEDS: FERROUS SULFATE 325 MG TAB PO SCH (22:12)
[2020-03-14] MEDS: FAMOTIDINE 20 MG TAB PO SCH (22:14)
--- NOTE | 2020-03-14 22:37 | HP ---
HISTORY AND PHYSICAL CHIEF COMPLAINTS: Abdominal distention, shortness of breath. HISTORY OF PRESENT ILLNESS: This 79-year-old woman with a past medical history of atrial fibrillation, asthma, diabetes mellitus, DVT, history of hypertension, hyperlipidemia, history of chronic liver disease, history of DJD, history of pulmonary embolism, being followed by Dr. Amezcua in the outpatient setting, was complaining of increasing shortness of breath and abdominal distention for the last several days. The patient apparently gained about 10 pounds. The patient also had some leg swelling. The patient went to Dr. Amezcua's office. An outpatient ultrasound was done which showed significant splenomegaly, ascites as well as left lobe of the liver enlarged, right lobe small contoured lobulated, all consistent with probable cirrhosis of the liver. The patient was admitted for evaluation and treatment. There is no history of any fever, rigor or chills. No history of headache, loss of consciousness, seizures at this time. PAST MEDICAL HISTORY: History of atrial fibrillation, history of asthma, diabetes mellitus, DVT, history of hypertension, hyperlipidemia, history of possible chronic liver disease. HOME MEDICATIONS: Zestril, Valium, Duricef, Norvasc, Ditropan XL, niacin, multivitamin, Singulair, Toprol- XL, Synthroid, Bucks, Eliquis. Doses and route of administration are reviewed. ALLERGIES: MULTIPLE ALLERGIES, including WASP, ADHESIVE, AMOXICILLIN, FENOFIBRATE, HYDROCHLOROTHIAZIDE, SHELLFISH, ZOCOR, STATIN, CIPRO, CLARITHROMYCIN, MINOCYCLINE, SOY, TALC, WALNUT. FAMILY HISTORY: No history of heart disease or strokes in the family. SOCIAL HISTORY: No history of smoking. No history of alcohol intake. REVIEW OF SYSTEMS: ENT: Diminished hearing. Diminished vision. CARDIOVASCULAR SYSTEM: No angina, palpitations. RESPIRATORY SYSTEM: As mentioned earlier. GI: As mentioned earlier. : No dysuria or retention. NERVOUS SYSTEM: No numbness, weakness. ALLERGY/IMMUNOLOGY: No asthma, hayfever. MUSCULOSKELETAL: As mentioned earlier. HEMATOLOGY/ONCOLOGY: No history of anemia. ENDOCRINE: No history of diabetes, hypothyroidism. CONSTITUTIONAL: As mentioned earlier. DERMATOLOGY: Negative. RHEUMATOLOGY: Negative. PSYCHIATRY: As mentioned earlier. PHYSICAL EXAMINATION: Patient alert and oriented x3. Pulse is 73, blood pressure 155/87, respiration 14, temperature is normal, pulse ox 96% on room air. HEENT: Conjunctivae normal. Oral mucosa moist. NECK: No jugular venous distention. No carotid bruit. No lymph node enlargement. CARDIOVASCULAR SYSTEM: S1, S2 muffled. RESPIRATORY SYSTEM: Breath sounds diminished at the bases. Scattered rhonchi. No crackles. ABDOMEN: Soft, obese. Tense ascites present. No mass palpable. LEGS: Minimal edema bilaterally. NERVOUS SYSTEM: Higher functions as mentioned earlier. Moves all 4 limbs. No focal motor or sensory deficit. LYMPHATICS: No lymph node palpable in neck, axillae or groin. SKIN: No ulcer, rash, bleeding. JOINTS: No active deforming arthropathy. LABS: WBC 5.6, hemoglobin 10.3, INR 1.3. Sodium is 136. ASSESSMENT: 1. Abdominal ascites with shortness of breath, abdominal distention for evaluation; possibly ascites secondary to cirrhosis of the liver. 2. 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 3. Hyponatremia. 4. Anemia, microcytic, secondary to cirrhosis of the liver. 5. History atrial fibrillation. 6. History of asthma, chronic intermittent. 7. Diabetes mellitus, type 2. 8. History of deep venous thrombosis. 9. Hyperlipidemia. 10.Hypertension. 11.History of chronic liver disease. 12.History of pulmonary embolus. 13.History of diet-controlled diabetes mellitus, type 2. 14.History of degenerative joint disease and back surgery. 15.Obesity with body mass index of 36.9. RECOMMENDATIONS AND DISCUSSION: In this 79-year-old woman who presented with multiple complex medical issues, we will monitor the patient closely, continue . I recommend repeat CT scan of the abdomen and pelvis. Otherwise, I would also recommend gastroenterology consultation, interventional radiology for abdominal paracentesis. Resume the home medications. Diuretics. Prognosis guarded because of multiple complex medical issues. Further recommendations to follow. A copy of this dictation is being forwarded to Dr. Amezcua, who is the primary physician. [id number] / IJN: [id number] / MTDTana
[2020-03-15] MEDS: LEVOTHYROXINE 25 MCG TAB PO SCH (06:09)
[2020-03-15 07:38] LABS: Glucose,Whole Blood 142 mg/dL (75-99)
[2020-03-15] MEDS: APIXABAN 5 MG TAB PO SCH ×2 (08:35→23:01)
[2020-03-15] MEDS: amLODIPine 2.5 MG TAB PO SCH ×2 (08:35→23:01)
[2020-03-15] MEDS: FAMOTIDINE 20 MG TAB PO SCH ×2 (08:36→17:02)
[2020-03-15] MEDS: HYDROcodone/APAP 5-325MG 1 EACH TAB PO SCH ×5 (08:36→23:00)
[2020-03-15] MEDS: OXYBUTYNIN 10 MG TAB.ER.24 PO SCH (08:39)
[2020-03-15 11:26] LABS: Glucose,Whole Blood 123 mg/dL (75-99)
[2020-03-15] MEDS: lisinopriL 20 MG TAB PO SCH (12:03)
[2020-03-15] MEDS: METOPROLOL SUCCINATE (ER) 25 MG TAB.ER.24H PO SCH (12:03)
--- NOTE | 2020-03-15 15:13 | P.PN ---
Subjective Progress Note Date: 03/15/20 Principal diagnosis: This is a 79-year-old female who was recently admitted with increasing shortness of breath and abdominal distention for the past several days with weight gain and some bilateral lower extremity swelling and is being closely monitored. Patient underwent an outpatient ultrasound which showed significant splenomegaly along with ascites as well as left lobe of the liver enlarged with the right lobe small contoured and modulated which was all consistent with probable cirrhosis of the liver. Patient is scheduled to undergo paracentesis with interventional radiology today. Patient apparently received her Eliquis last night and today but is okay to proceed with paracentesis today. Fluid analysis studies have been ordered for the paracentesis. Patient currently denies any chest pain or palpitations. Patient is having some shortness of breath. Patien t is afebrile. No reports of nausea or vomiting noted at this time. Patient was given a dose of IV Lasix yesterday and is showing some slight improvement of the bilateral lower extremity swelling. Patient instructed to elevate her legs while at rest. CT of the abdomen showed changes of the liver consistent with cirrhosis, Splenomegaly, and moderately severe abdominal ascites. Will continue to monitor closely and a GI consult was placed. Objective - Vital Signs Vital signs: Vital Signs Temp 98.1 F 03/15/20 07:34 Pulse 69 03/15/20 07:34 Resp 16 03/15/20 07:34 BP 151/63 03/15/20 07:34 Pulse Ox 99 03/15/20 07:34 Intake & Output 03/14/20 03/15/20 03/15/20 18:59 06:59 18:59 Weight 91.626 kg Other: Voiding Method Toilet # Voids 1 - Exam Gen: This is a 79-year-old female sitting up in bed awake, alert and oriented 3, well-developed, well-nourished. temp is 98.1F, pulse is 69, respirations are 16, blood pressures 151/63, oxygen is 99% on room air HEENT: Head is atraumatic, normocephalic. Pupils equal, round. Sclerae is anicteric. NECK: Supple. No JVD. No lymphadenopathy. No thyromegaly. LUNGS: Breath sounds diminished at the bases with some scattered rhonchi noted. No intercostal retractions. HEART: S1, S2 are muffled ABDOMEN: Taut. Distended and tympanic with ascites noted Bowel sounds are present. No masses. No tenderness. EXTREMITIES: No calf tenderness. Bilateral lower extremity edema noted. NEUROLOGICAL: Patient is awake, alert and oriented x3. Cranial nerves 2 through 12 are grossly intact. - Labs CBC & Chem 7: 03/14/20 16:27 03/14/20 16:27 Labs: Abnormal Lab Results - Last 24 Hours (Table) 03/14/20 03/14/20 03/14/20 Range/Units 16:27 16:27 16:27 Hgb 10.3 L (11.4-16.0) gm/dL MCV 71.3 L (80.0-100.0) fL MCH 20.6 L (25.0-35.0) pg MCHC 28.9 L (31.0-37.0) g/dL RDW 17.4 H (11.5-15.5) % Lymphocytes # 0.8 L (1.0-4.8) k/uL PT 13.1 H (9.0-12.0) sec INR 1.3 H (<1.2) Sodium 136 L (137-145) mmol/L Creatinine 0.51 L (0.52-1.04) mg/dL Glucose 105 H (74-99) mg/dL POC Glucose (mg/dL) (75-99) mg/dL AST 45 H (14-36) U/L 03/14/20 03/15/20 03/15/20 Range/Units 20:35 07:36 11:00 Hgb (11.4-16.0) gm/dL MCV (80.0-100.0) fL MCH (25.0-35.0) pg MCHC (31.0-37.0) g/dL RDW (11.5-15.5) % Lymphocytes # (1.0-4.8) k/uL PT (9.0-12.0) sec INR (<1.2) Sodium (137-145) mmol/L Creatinine (0.52-1.04) mg/dL Glucose (74-99) mg/dL POC Glucose (mg/dL) 123 H 142 H 123 H (75-99) mg/dL AST (14-36) U/L Assessment and Plan Assessment: Abdominal ascites with shortness of breath, abdominal distention for evaluation, possibly ascites secondary to cirrhosis of the liver Possible cryptogenic cirrhosis of liver and portal hypertension Hyponatremia Anemia, microcytic, secondary to cirrhosis of the liver History of atrial fibrillation History of asthma, chronic intermittent Diabetes mellitus type 2 History of DVT Hyperlipidemia Hypertension History of chronic liver disease History of pulmonary embolus History of diet-controlled diabetes mellitus, type II History of degenerative joint disease and back surgery Obesity with a body mass index of 36.9 Recommendations and discussion: Recommend to continue current medications, management, and symptomatic treatment. She is scheduled to undergo paracentesis today of ascites of the abdomen. Fluid studies ordered including albumin and cytology, WBC, and cultures of the fluid from the paracentesis. Patient did receive her Eliquis last night and today although is okay to proceed with paracentesis today. Discussed with nursing staff about monitoring the site after procedure for any signs of bleeding. Will repeat a.m. labs and monitor closely. Due to multiple complex medical issues, prognosis is guarded. Further recommendations to follow. Possible discharge in 24-48 hours.
[2020-03-15 16:55] VITALS: RESP 16
[2020-03-15 17:20] LABS: Glucose,Whole Blood 111 mg/dL (75-99)
[2020-03-15] MEDS: ALBUMIN HUMAN 25% 50 ML in EMPTY BAG 1 BAG IVPB SCH ×2 (17:23→18:13)
[2020-03-15 19:06] LABS: Appearance,BF Clear; Color,BF Yellow; Nucleated Cells, Body Fluid 30 /uL; RBC, Body Fluid 715 /uL
[2020-03-15 19:56] LABS: Mononuclear WBC,Body Fluid 86 %; Polynuclear WBC,Body Fluid 14 %
[2020-03-15] MEDS: FERROUS SULFATE 325 MG TAB PO SCH (23:00)
[2020-03-15] MEDS: MONTELUKAST 10 MG TAB PO SCH (23:01)
--- NOTE | 2020-03-15 23:08 | US ---
EXAMINATION TYPE: US paracentesis abd w/image DATE OF EXAM: 03/15/2020 CLINICAL HISTORY: Ascites Preprocedure preliminary imaging demonstrates moderate volume ascites. The procedure was discussed with the patient. The risks, complications, benefits, and alternatives we re discussed and any questions were answered. Informed consent was obtained. The patient was placed s upine on the ultrasound table and prepped and draped in the usual sterile fashion. All elements of maximal barrier technique were utilized. Under ultrasound guidance, access into the right lower quadrant was obtained with a 5 Divehi one-step centesis catheter. Approximately 4.5 liters of clear serous fluid was removed. Catheter was removed and sterile bandage was applied. The patient was stable throughout the procedure and remained stable upon discharge from Department of Radiology. IMPRESSION: Successful ultrasound-guided diagnostic and therapeutic paracentesis, with removal of 4.5 liters of c lear serous fluid.
[2020-03-16] MEDS: LEVOTHYROXINE 25 MCG TAB PO SCH (05:59)
[2020-03-16 07:15] LABS: Glucose,Whole Blood 116 mg/dL (75-99)
[2020-03-16] MEDS: FAMOTIDINE 20 MG TAB PO SCH (08:03)
[2020-03-16] MEDS: OXYBUTYNIN 10 MG TAB.ER.24 PO SCH (08:03)
[2020-03-16] MEDS: APIXABAN 5 MG TAB PO SCH (08:03)
[2020-03-16] MEDS: amLODIPine 2.5 MG TAB PO SCH (08:03)
[2020-03-16] MEDS: HYDROcodone/APAP 5-325MG 1 EACH TAB PO SCH ×2 (08:04→11:19)
[2020-03-16 08:06] VITALS: BP 154/76; PULSE 70; TEMP 97.7
[2020-03-16 08:19] LABS: Albumin, Fluid Source Paracentesis Fluid
[2020-03-16] MEDS ORDERED: NYSTATIN 100,000UNIT/GM CREAM 30 GM TUBE TOPICAL SCH (09:00)
[2020-03-16 09:28] LABS: Anisocytosis Slight; Basophils % (A) 1 %; Eosinophils # (A) 0.1 k/uL (0-0.7); Eosinophils % (A) 2 %; HCT 36.3 % (34.0-46.0); HGB 10.4 gm/dL (11.4-16.0); Hypochromasia Marked; Lymphocytes # (A) 0.6 k/uL (1.0-4.8); Lymphocytes % (A) 13 %; MCH 20.6 pg (25.0-35.0); MCHC 28.6 g/dL (31.0-37.0); MCV 72.2 fL (80.0-100.0); Mean Platelet Volume 7.1; Microcytosis Moderate; Monocytes # (A) 0.2 k/uL (0-1.0); Monocytes % (A) 5 %; Neutrophils # (A) 3.4 k/uL (1.3-7.7); Neutrophils % (A) 78 %; Platelet Count 176 k/uL (150-450); RBC 5.03 m/uL (3.80-5.40); RDW 18.1 % (11.5-15.5); WBC 4.4 k/uL (3.8-10.6)
[2020-03-16 09:36] LABS: ALT 16 U/L (4-34); AST 45 U/L (14-36); African American GFR (CKD) >90 (>60 ml/min/1.73 sqM); Albumin 3.9 g/dL (3.5-5.0); Alkaline Phosphatase 66 U/L (38-126); Anion Gap 9 mmol/L; Blood Urea Nitrogen 11 mg/dL (7-17); Calcium 8.7 mg/dL (8.4-10.2); Carbon Dioxide 23 mmol/L (22-30); Chloride 104 mmol/L (98-107); Glucose 111 mg/dL (74-99); Non-African American GFR(CKD) >90 (>60 ml/min/1.73 sqM); Sodium 136 mmol/L (137-145); Total Bilirubin 0.6 mg/dL (0.2-1.3); Total Protein 6.2 g/dL (6.3-8.2)
[2020-03-16 09:53] LABS: Potassium 4.6 mmol/L (3.5-5.1)
[2020-03-16] MEDS: METOPROLOL SUCCINATE (ER) 25 MG TAB.ER.24H PO SCH (11:18)
[2020-03-16] MEDS: lisinopriL 20 MG TAB PO SCH (11:19)
--- NOTE | 2020-03-19 08:46 | P.DS ---
Providers Date of admission: 03/14/20 18:25 Expected date of discharge: 03/16/20 Attending physician: Bg Ayon Consults: 03/15/20 15:09 Consult Physician Urgent Consulting Provider: Saira Maciel Consult Reason/Comments: abdominal ascites/cirrhosis Do you want consulting provider notified?: Yes Primary care physician: [facility]ag[facility] Course: Final Diagnosis Abdominal ascites with shortness of breath, abdominal distention for evaluation, possibly ascites secondary to cirrhosis of the liver Possible cryptogenic cirrhosis of liver and portal hypertension Hyponatremia Anemia, microcytic, secondary to cirrhosis of the liver History of atrial fibrillation History of asthma, chronic intermittent Diabetes mellitus type 2 History of DVT Hyperlipidemia Hypertension History of chronic liver disease History of pulmonary embolus History of diet-controlled diabetes mellitus, type II History of degenerative joint disease and back surgery Obesity with a body mass index of 36.9 Discharge disposition Patient is being discharged in a stable condition with guarded prognosis to home. Patient will follow-up with Dr. Amezcua in the outpatient setting upon discharge. Patient will also be following up with GI Dr. Maciel in the outpatient setting in 2 weeks for results. Total time taken is greater than 35 minutes. History of present illness This is a 79-year-old female who was recently admitted with increasing shortness of breath and abdominal distention for the past several days with weight gain and some bilateral lower extremity swelling and was being closely monitored. Patient was seen and evaluated by GI and recommending outpatient follow-up for results. Patient did have an ultrasound which showed ascites of the abdomen and ultimately underwent a paracentesis with approximately 4 L of fluid removed. Fluid analysis was sent and currently pending. Today patient feels much better her shortness of breath has improved and her abdominal distention and discomfort has much improved and patient will like to be discharged today. Currently no reports of chest pain, shortness of breath, or palpitations. Patient is afebrile. No reports of nausea or vomiting and patient is tolerating diet. Patient will be discharged home today. On exam vital signs are stable. Temp is 97.7F, pulse is 70, respirations are 16, blood pressure is 154/76, oxygen saturation is 99% on room air. Cardio S1, S2 are muffled. Respiratory system shows diminished breath sounds at the bases with no wheezing or rhonchi noted. Abdomen is soft and nontender. Nervous system shows no focal deficits. Please refer to medication reconciliation sheet for a list of medications. Patient Condition at Discharge: Good Plan - Discharge Summary Discharge Rx Participant: No New Discharge Prescriptions: Continue Montelukast [Singulair] 10 mg PO HS@2200 Levothyroxine Sodium [Synthroid] 25 mcg PO DAILY@0700 Oxybutynin Chloride [Ditropan XL] 10 mg PO DAILY@1000 HYDROcodone/APAP 5-325MG [Crane 5-325] 1 tab PO QID@07,10,12,16 Multivit-Min/FA/Lycopen/Lutein [Centrum Silver Tablet] 1 tab PO DAILY@0700 amLODIPine [Norvasc] 2.5 mg PO BID@1000,2200 Niacin 500 mg PO BID@1000,2200 lisinopriL [Zestril] 20 mg PO DAILY@1200 Metoprolol Succinate [Toprol XL] 25 mg PO DAILY@1200 Trolamine Salicylate/Aloe Vera [Aspercreme 10% Cream] 1 applic TOPICAL DAILY PRN PRN Reason: Pain Hydrocortisone Cream [Hydrocortisone 2.5% Cream] 1 applic TOPICAL BID PRN PRN Reason: Rash Albuterol Sulfate [Proair Hfa] 1 - 2 puff INHALATION Q6HR PRN PRN Reason: Shortness Of Breath Ferrous Sulfate [Feosol] 325 mg PO HS@2200 Evolocumab [Repatha Sureclick] 140 mg SQ Q14D Famotidine [Pepcid] 20 mg PO BID-W/MEALS Apixaban [Eliquis] 5 mg PO BID@1000,2200 Discharge Medication List Levothyroxine Sodium [Synthroid] 25 mcg PO DAILY@0700 03/23/14 [History] Montelukast [Singulair] 10 mg PO HS@219903/23/14 [History] Oxybutynin Chloride [Ditropan XL] 10 mg PO DAILY@1000 03/23/14 [History] HYDROcodone/APAP 5-325MG [Crane 5-325] 1 tab PO QID@07,10,12,16 06/13/15 [History] Multivit-Min/FA/Lycopen/Lutein [Centrum Silver Tablet] 1 tab PO DAILY@0700 06/13/15 [History] Niacin 500 mg PO BID@1000,0 04/07/17 [History] amLODIPine [Norvasc] 2.5 mg PO BID@1000,2200 04/07/17 [History] Metoprolol Succinate [Toprol XL] 25 mg PO DAILY@1200 09/02/17 [History] lisinopriL [Zestril] 20 mg PO DAILY@1200 09/02/17 [History] Albuterol Sulfate [Proair Hfa] 1 - 2 puff INHALATION Q6HR PRN 03/14/20 [History] Apixaban [Eliquis] 5 mg PO BID@1000,219903/14/20 [History] Evolocumab [Repatha Sureclick] 140 mg SQ Q14D 03/14/20 [History] Famotidine [Pepcid] 20 mg PO BID-W/MEALS 03/14/20 [History] Ferrous Sulfate [Feosol] 325 mg PO HS@219903/14/20 [History] Hydrocortisone Cream [Hydrocortisone 2.5% Cream] 1 applic TOPICAL BID PRN 03/14/20 [History] Trolamine Salicylate/Aloe Vera [Aspercreme 10% Cream] 1 applic TOPICAL DAILY PRN 03/14/20 [History] Follow up Appointment(s)/Referral(s): Shea Amezcua MD [Primary Care Provider] - 03/21/20 10:50 am Margaret Ricardo NPC [Nurse Practitioner] - 2 Weeks (office closed at time of discharge. Please call to make appointment) Patient Instructions/Handouts: Ascites (DC), Paracentesis (DC) Activity/Diet/Wound Care/Special Instructions: Activity Limited until follow-up Follow-up with primary care provider upon discharge Continue current diet Follow-up with GI in the outpatient setting for fluid analysis results Discharge Disposition: HOME SELF-CARE
--- NOTE | 2020-03-19 10:02 | CDI ---
Documentation Clarification Form Date: 03/19/20 From: Myrtle Max CCS Phone: If you have a question about this query, please contact Bertha Morgan, Nurse'S Assistant at [phone] between 8am and 5pm. Admit Date: 03/14/20 Discharge Date:03/16/20 Patient Name: Farideh Echevarria Visit Number: [id number] ATTENTION: The Clinical Documentation Specialists (CDI) and [employer] Coding Staff appreciate your assistance in clarifying documentation. Please respond to the clarification below the line at the bottom and electronically sign. The CDI & [employer] Coding staff will review the response and follow-up if needed. Please note: Queries are made part of the Legal Health Record. If you have any questions, please contact the author of this message via ITS. Dear Dr. Ayon, Atrial Fibrillation is documented in the ED, H&P, PNs, DS. History/Risk Factors: DM, HTN, Obesity, Cirrhosis, Asthma Clinical Indicators: AFIB EKG/telemetry: Atrial fibrillation with premature ventricular or aberranlty conducted complexes Treatment: Eliquis 5 mg PO BID In your professional opinion, can you please clarify the type of Atrial Fibrillation, if known? Chronic/Permanent Paroxysmal Persistent Other, please specify Unable to determine Persistent MTDD
== END 2020-03-16 13:20 | disposition home or self-care (01) | DRG 433 ==
LOC: EC 15:49 → 4SSUR 18:25
PROVIDERS: ADMIT Hospitalist; ATTEND Hospitalist
PROC: 0W9G3ZZ Drainage of Peritoneal Cavity, Percutaneous Approach (ICD-10-PCS; principal; 2020-03-15)
DX: K74.60 Unspecified cirrhosis of liver (principal); R18.8 Other ascites; K76.6 Portal hypertension; E87.1 Hypo-osmolality and hyponatremia; I48.19 Other persistent atrial fibrillation; D63.8 Anemia in other chronic diseases classified elsewhere; E11.9 Type 2 diabetes mellitus without complications; I10 Essential (primary) hypertension; E78.5 Hyperlipidemia, unspecified; N32.81 Overactive bladder; E66.9 Obesity, unspecified; J45.20 Mild intermittent asthma, uncomplicated; R16.1 Splenomegaly, not elsewhere classified; M19.90 Unspecified osteoarthritis, unspecified site; Z68.36 Body mass index [BMI] 36.0-36.9, adult; Z79.890 Hormone replacement therapy; Z79.01 Long term (current) use of anticoagulants; Z79.899 Other long term (current) drug therapy; Z79.891 Long term (current) use of opiate analgesic; Z91.048 Other nonmedicinal substance allergy status; Z86.718 Personal history of other venous thrombosis and embolism; Z86.19 Personal history of other infectious and parasitic diseases; Z86.711 Personal history of pulmonary embolism; Z87.81 Personal history of (healed) traumatic fracture; Z90.710 Acquired absence of both cervix and uterus; Z98.890 Other specified postprocedural states; Z98.42 Cataract extraction status, left eye; Z98.41 Cataract extraction status, right eye; Z98.1 Arthrodesis status; Z96.653 Presence of artificial knee joint, bilateral; Z96.612 Presence of left artificial shoulder joint; Z96.611 Presence of right artificial shoulder joint; Z88.1 Allergy status to other antibiotic agents; Z91.030 Bee allergy status; Z91.038 Other insect allergy status; Z91.018 Allergy to other foods; Z88.0 Allergy status to penicillin; Z91.013 Allergy to seafood; Z88.8 Allergy status to other drugs, medicaments and biological substances
CPT/HCPCS: 36415; 49083; 74022; 74176; 80053; 81003; 82042; 83735; 83880; 84484; 85025; 85610; 85730; 87070; 87075; 87205; 88108; 88305; 89050; 93005; 99285

== ENCOUNTER → 2020-03-14 | Outpatient (CLI) | payer MEDICARE ==
--- NOTE | 2020-03-14 09:36 | US ---
EXAMINATION TYPE: US abdomen complete DATE OF EXAM: 03/14/2020 COMPARISON: US CLINICAL HISTORY: R94.5 Abnormal results of liver function studies... Abnormal labs, ABD distention EXAM MEASUREMENTS: Liver Length: 13.7 cm Gallbladder Wall: 0.3 cm CBD: 0.5 cm Spleen: 21.5 cm Right Kidney: 10.5 x 4.6 x 5.6 cm Left Kidney: 10.2 x 5.6 x 4.6 cm Pancreas: wnl, tail obscured by overlying bowel gas Liver: left lobe enlarged, right lobe small, contour lobulated all consistent with probable cirrhosi s Gallbladder: wnl Evidence for sonographic Sahni's sign: No CBD: wnl Spleen: Enlarged Right Kidney: wnl Left Kidney: wnl Upper IVC: wnl Abd Aorta: Obscured by overlying bowel gas Incidental finding mild amount of ascites present The intrahepatic portion of the IVC and proximal abdominal aorta are within normal limits. There is no evidence of cholelithiasis. Common bile duct is unremarkable. The visualized portions of the webb creas are homogenous. Kidneys are symmetric and free of hydronephrosis. No renal lesions are seen . IMPRESSION: 1. Correlate for hepatic cirrhosis. 2. Splenomegaly. 3. Ascites.
== END | disposition home or self-care (01) ==
LOC: RADUSWWP 08:37
PROVIDERS: ATTEND Internal Medicine
DX: R18.8 Other ascites (principal); R16.2 Hepatomegaly with splenomegaly, not elsewhere classified; Z88.0 Allergy status to penicillin; Z88.1 Allergy status to other antibiotic agents; Z88.8 Allergy status to other drugs, medicaments and biological substances; Z88.5 Allergy status to narcotic agent
CPT/HCPCS: 76700

== ENCOUNTER 2020-05-18 08:43 | Day surgery (SDC) | payer MEDICARE ==
[2020-05-18 09:42] VITALS: TEMP 97.7
[2020-05-18 09:47] LABS: Mean Platelet Volume 9.1; Platelet Count 223 k/uL (150-450)
[2020-05-18 09:55] LABS: African American GFR (CKD) >90 (>60 ml/min/1.73 sqM); Non-African American GFR(CKD) >90 (>60 ml/min/1.73 sqM)
[2020-05-18 09:56] LABS: INR 1.2 (<1.2); Prothrombin Time 11.7 sec (9.0-12.0)
[2020-05-18] MEDS: ALBUMIN HUMAN 25% 50 ML in EMPTY BAG 1 BAG IVPB SCH ×4 (10:25→11:37)
[2020-05-18 10:43] VITALS: RESP 16
[2020-05-18 11:40] VITALS: BP 119/70; PULSE 75
--- NOTE | 2020-05-18 12:11 | US ---
EXAMINATION TYPE: US paracentesis abd w/image DATE OF EXAM: 05/18/2020 CLINICAL HISTORY: Ascites COMPARISON: Paracentesis 04/17/2020 PLASTER CASTER: Dr. Mireya Gonzalez PROCEDURE: Preprocedure preliminary ultrasound imaging demonstrates large volume ascites and several septations. The procedure was discussed with the patient. The risks, complications, benefits, and alternatives we re discussed and any questions were answered. Informed consent was obtained. The patient was placed s upine on the ultrasound table and prepped and draped in the usual sterile fashion. All elements of maximal barrier technique were utilized. Under ultrasound guidance, access into the left lower quadrant was obtained with a 5 Armenian one-step centesis catheter. Approximately 6.1 liters of clear serous fluid was removed. Catheter was removed and sterile bandage was applied. The patient was stable throughout the procedure and remained stable upon discharge from Department of Radiology. IMPRESSION: Successful ultrasound-guided paracentesis, with removal of 6.1 liters of clear serous fluid.
== END 2020-05-18 11:55 | disposition home or self-care (01) ==
LOC: RADPROMAIN 08:43
PROVIDERS: ATTEND Physician Assistant
DX: R18.8 Other ascites (principal); K74.60 Unspecified cirrhosis of liver; Z01.812 Encounter for preprocedural laboratory examination
CPT/HCPCS: 82565; 82947; 85049; 85610; 36415; 49083; P9047

== ENCOUNTER → 2020-05-24 | Outpatient (CLI) | payer MEDICARE ==
[2020-05-24 11:57] LABS: HCT 33.5 % (34.0-46.0); Hypochromasia Marked; MCH 23.1 pg (25.0-35.0); MCHC 29.8 g/dL (31.0-37.0); MCV 77.7 fL (80.0-100.0); Mean Platelet Volume 8.3; Microcytosis Slight; Platelet Count 227 k/uL (150-450); RDW 15.7 % (11.5-15.5); WBC 6.1 k/uL (3.8-10.6)
== END | disposition home or self-care (01) ==
LOC: LABWHC1 11:13
PROVIDERS: ATTEND Internal Medicine
DX: D64.9 Anemia, unspecified (principal); K74.60 Unspecified cirrhosis of liver; R21 Rash and other nonspecific skin eruption; R25.1 Tremor, unspecified; R18.8 Other ascites
CPT/HCPCS: 36415; 82140; 83540; 85027

== ENCOUNTER → 2020-05-29 | Outpatient (CLI) | payer MEDICARE ==
[2020-05-29 13:25] LABS: INR 1.2 (<1.2); Partial Thromboplastin Time 28.8 sec (22.0-30.0); Prothrombin Time 12.1 sec (9.0-12.0)
[2020-05-29 13:35] LABS: HGB 9.7 gm/dL (11.4-16.0); Hypochromasia Marked; MCH 22.7 pg (25.0-35.0); MCHC 29.4 g/dL (31.0-37.0); MCV 77.3 fL (80.0-100.0); Mean Platelet Volume 8.7; Microcytosis Slight; Platelet Count 267 k/uL (150-450); RBC 4.27 m/uL (3.80-5.40); RDW 15.7 % (11.5-15.5); WBC 6.1 k/uL (3.8-10.6)
[2020-05-29 22:45] LABS: Albumin 3.7 g/dL (3.80-4.90); Albumin/Globulin Ratio 1.95 (1.60-3.17); Bilirubin, Conjugated 0.2 mg/dL (0.20-0.40); Bilirubin,Unconjugated 0.3 mg/dL; Globulin 1.9 g/dL (1.6-3.3); Total Bilirubin 0.5 mg/dL (0.2-1.2); Total Protein 5.6 g/dL (6.2-8.2)
== END | disposition home or self-care (01) ==
LOC: LABWHC1 12:02
PROVIDERS: ATTEND Physician Assistant
DX: K74.60 Unspecified cirrhosis of liver (principal)
CPT/HCPCS: 36415; 80076; 82105; 85027; 85610; 85730

== ENCOUNTER → 2020-06-04 | Outpatient (CLI) | payer MEDICARE ==
[2020-06-04 15:34] LABS: Basophils % (A) 1 %; Eosinophils # (A) 0.1 k/uL (0-0.7); Eosinophils % (A) 2 %; HCT 31.8 % (34.0-46.0); HGB 9.7 gm/dL (11.4-16.0); Hypochromasia Marked; Lymphocytes # (A) 0.8 k/uL (1.0-4.8); Lymphocytes % (A) 13 %; MCH 22.8 pg (25.0-35.0); MCHC 30.6 g/dL (31.0-37.0); MCV 74.8 fL (80.0-100.0); Mean Platelet Volume 8.2; Microcytosis Slight; Monocytes # (A) 0.5 k/uL (0-1.0); Monocytes % (A) 8 %; Neutrophils # (A) 4.4 k/uL (1.3-7.7); Neutrophils % (A) 75 %; Platelet Count 242 k/uL (150-450); RBC 4.26 m/uL (3.80-5.40); RDW 15.5 % (11.5-15.5); WBC 5.9 k/uL (3.8-10.6)
[2020-06-05 01:28] LABS: INR 1.13 (0.90-1.11); Prothrombin Time 12.3 sec (9.9-11.9)
[2020-06-05 01:47] LABS: ALT 17 U/L (8-44); AST 38 U/L (13-35); Alkaline Phosphatase 90 U/L (41-126); Bilirubin, Conjugated <0.20 mg/dL (0.20-0.40); Globulin 1.9 g/dL (1.6-3.3); Total Bilirubin 0.2 mg/dL (0.2-1.2); Total Protein 5.7 g/dL (6.2-8.2)
== END | disposition home or self-care (01) ==
LOC: LABWHC1 13:54
PROVIDERS: ATTEND Physician Assistant
DX: K74.60 Unspecified cirrhosis of liver (principal)
CPT/HCPCS: 36415; 80076; 85025; 85610

== ENCOUNTER 2020-06-06 08:46 | Day surgery (SDC) | payer MEDICARE ==
[2020-06-06 09:57] VITALS: TEMP 98
[2020-06-06 09:59] LABS: African American GFR (CKD) >90 (>60 ml/min/1.73 sqM); Glucose 117 mg/dL (74-99); Non-African American GFR(CKD) 86 (>60 ml/min/1.73 sqM)
[2020-06-06] MEDS: ALBUMIN HUMAN 25% 50 ML in EMPTY BAG 1 BAG IVPB SCH ×4 (10:46→11:27)
[2020-06-06 12:13] VITALS: BP 116/69; PULSE 74; RESP 19
--- NOTE | 2020-06-06 14:38 | US ---
EXAMINATION TYPE: US paracentesis abd w/image DATE OF EXAM: 06/06/2020 COMPARISON: NONE HISTORY: Ascites. PROCEDURE: Maximal barrier technique was utilized. The skin overlying a suitable pocket of fluid was localized with ultrasound and the overlying skin was prepped and draped. Ultrasound was utilized with sterile technique. Lidocaine was used for local anesthesia and a skin saurabh made with a scalpel. Catheter was advanced under direct ultrasound guidance into a suitable pocket of fluid and approximately 8.4 liter s of serous fluid were removed. Catheter was withdrawn and hemostasis achieved. There is no immedia te complication; the patient is discharged in stable condition. IMPRESSION: STATUS POST ULTRASOUND GUIDED PARACENTESIS FOR PALLIATION OF ASCITES. THIS PROCEDURE WA S PERFORMED BY THE UNDERSIGNED. Specimen obtained for laboratory analysis.
== END 2020-06-06 12:10 | disposition home or self-care (01) ==
LOC: RADPROMAIN 08:46
PROVIDERS: ATTEND Internal Medicine Gastroenterology
DX: R18.8 Other ascites (principal)
CPT/HCPCS: 82565; 82947; 36415; 49083; P9047

== ENCOUNTER 2020-06-12 07:45 | Day surgery (SDC) | payer MEDICARE ==
[2020-06-08 10:50] VITALS: BMI 33.3
[~2020-06-12 07:45] MED LIST: LACTATED RINGERS 1,000 ML IV SCH
[2020-06-12 08:20] VITALS: RESP 16; TEMP 97.1
[2020-06-12 08:22] LABS: Glucose,Whole Blood 101 mg/dL (75-99)
[2020-06-12] MEDS ORDERED: LIDOCAINE 1% (10MG/ML) FOR IV START INTRADERMA ONE (08:25)
[2020-06-12] MEDS ORDERED: LIDOCAINE 1% INJ 10MG/ML (20 ML MDV) ONE (08:26)
[2020-06-12] MEDS ORDERED: PROPOFOL 10 MG/ML 20 ML VIAL IV ONE (08:26)
--- NOTE | 2020-06-12 08:56 | P.PCN ---
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 PROCEDURE PERFORMED: Esophagogastroduodenoscopy with biopsy and esophageal variceal band ligation. PREOPERATIVE DIAGNOSIS: Anemia, cirrhosis. ESTIMATED BLOOD LOSS: Minimal. IV sedation per anesthesia. PROCEDURE: After informed consent was obtained, the patient was brought into the endoscopy unit. IV sedation was administered by Anesthesia under continuous monitoring. Initially the Olympus GIF-190 video endoscope was inserted into the mouth. Esophagus intubated without any difficulty. It was gradually advanced into the stomach and duodenum and carefully examined. The bulb and the second part of the duodenum appeared normal, with biopsies taken. The scope at this time was withdrawn to the stomach, adequately insufflated with air, and upon careful examination, mucosa of the antrum, body, cardia and the fundus appeared grossly normal, however there was severe erythema and irritation in the antrum suggestive of severe antral gastritis with biopsies of the antrum and body taken. The scope was then withdrawn into the esophagus. The GE junction was located at 39 cm from the incisors, where a few columns of large varices were noted in the distal esophagus is treated with esophageal variceal band ligation with 5 bands placed in a circumferential manner. The esophagus appeared normal. There were no erosions or ulcerations seen and the patient tolerated the procedure well. IMPRESSION: 1. Large distal esophageal varices treated with band ligation 5. 2. Severe antral gastritis. 3. Biopsies taken of the duodenum and antrum and body. RECOMMENDATIONS: The findings of this examination were discussed with the patient . Okay to resume full liquid diet. Can advance diet tomorrow as tolerated. Recommend holding anticoagulation therapy for an additional 48 hours to severe irritation in the antrum as well as esophageal variceal ligation. At this time patient will be switched from Pepcid therapy to omeprazole therapy twice daily indefinitely. Recommend repeat EGD for further ligation in 4 weeks.
[2020-06-12 09:08] VITALS: BP 145/69; PULSE 89
== END 2020-06-12 09:48 | disposition home health service (06) ==
LOC: ORWHC2ENDO 07:45
PROVIDERS: ATTEND Internal Medicine
DX: K74.60 Unspecified cirrhosis of liver (principal); I85.10 Secondary esophageal varices without bleeding; K29.80 Duodenitis without bleeding; K29.50 Unspecified chronic gastritis without bleeding; K75.81 Nonalcoholic steatohepatitis (NASH); D64.9 Anemia, unspecified; I48.91 Unspecified atrial fibrillation; I10 Essential (primary) hypertension; E78.5 Hyperlipidemia, unspecified; J45.909 Unspecified asthma, uncomplicated; E11.9 Type 2 diabetes mellitus without complications; E07.9 Disorder of thyroid, unspecified; Z79.01 Long term (current) use of anticoagulants; Z91.048 Other nonmedicinal substance allergy status; Z88.2 Allergy status to sulfonamides; Z88.0 Allergy status to penicillin; Z88.1 Allergy status to other antibiotic agents; Z88.8 Allergy status to other drugs, medicaments and biological substances; Z79.890 Hormone replacement therapy; Z79.899 Other long term (current) drug therapy; Z87.891 Personal history of nicotine dependence; Z98.41 Cataract extraction status, right eye; Z98.42 Cataract extraction status, left eye; Z98.890 Other specified postprocedural states; Z90.710 Acquired absence of both cervix and uterus
CPT/HCPCS: 88305; 43239; 43244; J2001; J2704

== ENCOUNTER 2020-06-20 11:29 | Day surgery (SDC) | payer MEDICARE ==
[2020-06-20 12:27] LABS: Mean Platelet Volume 7.3; Platelet Count 289 k/uL (150-450)
[2020-06-20 12:35] LABS: INR 1.2 (<1.2); Prothrombin Time 12.1 sec (9.0-12.0)
[2020-06-20 12:36] LABS: African American GFR (CKD) >90 (>60 ml/min/1.73 sqM); Glucose 103 mg/dL (74-99); Non-African American GFR(CKD) 86 (>60 ml/min/1.73 sqM)
[2020-06-20 12:59] VITALS: TEMP 98.1
[2020-06-20] MEDS: ALBUMIN HUMAN 25% 50 ML in EMPTY BAG 1 BAG IVPB SCH ×4 (13:27→14:13)
[2020-06-20 15:07] VITALS: BP 118/60; PULSE 78; RESP 16
--- NOTE | 2020-06-20 17:19 | US ---
EXAMINATION TYPE: US paracentesis abd w/image DATE OF EXAM: 06/20/2020 CLINICAL HISTORY: Ascites COMPARISON: Paracentesis 06/06/2020 SOLUTION SPEC: Dr. Mireya Gonzalez PROCEDURE: Preprocedure preliminary ultrasound imaging demonstrates large volume ascites. The procedure was discussed with the patient. The risks, complications, benefits, and alternatives we re discussed and any questions were answered. Informed consent was obtained. The patient was placed s upine on the ultrasound table and prepped and draped in the usual sterile fashion. All elements of maximal barrier technique were utilized. Under ultrasound guidance, access into the left lower quadrant was obtained with a 5 Upper Sorbian one-step centesis catheter. Approximately 8.8 liters of clear serous fluid was removed. Catheter was removed and sterile bandage was applied. The patient was stable throughout the procedure and remained stable upon discharge from Department of Radiology. IMPRESSION: Successful ultrasound-guided paracentesis, with removal of 8.8 liters of clear serous fluid.
== END 2020-06-20 15:07 | disposition home or self-care (01) ==
LOC: RADPROMAIN 11:29
PROVIDERS: ATTEND Nurse Practitioner
DX: R18.8 Other ascites (principal)
CPT/HCPCS: 82565; 82947; 85049; 85610; 36415; 49083; P9047

== ENCOUNTER 2020-06-28 12:45 | Day surgery (SDC) | payer MEDICARE ==
[2020-06-28 13:23] LABS: Glucose,Whole Blood 148 mg/dL (75-99)
[2020-06-28 13:28] LABS: Mean Platelet Volume 7.2; Platelet Count 346 k/uL (150-450)
[2020-06-28 13:36] LABS: INR 1.2 (<1.2); Prothrombin Time 11.8 sec (9.0-12.0)
[2020-06-28] MEDS: ALBUMIN HUMAN 25% 50 ML in EMPTY BAG 1 BAG IVPB SCH ×4 (14:13→15:09)
[2020-06-28 15:08] VITALS: RESP 16
[2020-06-28 16:17] VITALS: BP 116/67; PULSE 76
--- NOTE | 2020-06-28 16:48 | US ---
EXAMINATION TYPE: US paracentesis abd w/image DATE OF EXAM: 06/28/2020 COMPARISON: NONE HISTORY: Ascites. PROCEDURE: Maximal barrier technique was utilized. The skin overlying a suitable pocket of fluid was localized with ultrasound and the overlying skin was prepped and draped. Ultrasound was utilized with sterile technique. Lidocaine was used for local anesthesia and a skin saurabh made with a scalpel. Catheter was advanced under direct ultrasound guidance into a suitable pocket of fluid and approximately 8.2 liter s of serous fluid were removed. Catheter was withdrawn and hemostasis achieved. There is no immedia te complication; the patient is discharged in stable condition. IMPRESSION: STATUS POST ULTRASOUND GUIDED PARACENTESIS FOR PALLIATION OF ASCITES. THIS PROCEDURE WA S PERFORMED BY THE UNDERSIGNED.
== END 2020-06-28 16:10 | disposition home or self-care (01) ==
LOC: RADPROMAIN 12:45
PROVIDERS: ATTEND Internal Medicine Gastroenterology
DX: R18.8 Other ascites (principal); K74.60 Unspecified cirrhosis of liver
CPT/HCPCS: 85049; 85610; 36415; 49083; P9047

== ENCOUNTER 2020-07-05 11:14 | Day surgery (SDC) | payer MEDICARE ==
[2020-07-05 12:01] VITALS: TEMP 97.6
[2020-07-05 12:35] LABS: Mean Platelet Volume 7.4; Platelet Count 233 k/uL (150-450)
[2020-07-05] MEDS: ALBUMIN HUMAN 25% 50 ML in EMPTY BAG 1 BAG IVPB SCH ×4 (13:07→14:31)
[2020-07-05 13:16] VITALS: RESP 16
[2020-07-05 15:14] VITALS: BP 141/69; PULSE 71
--- NOTE | 2020-07-05 15:43 | US ---
Ultrasound-guided paracentesis. DATE OF EXAM: 07/05/2020 CLINICAL HISTORY: Ascites The procedure was discussed with the patient. The risks, complications, benefits, and alternatives we re discussed and any questions were answered. Informed consent was obtained. The patient was placed s upine on the ultrasound table and prepped and draped in the usual sterile fashion. All elements of maximal barrier technique were utilized. Under ultrasound guidance, access into the right lower quadrant was obtained, via the paracentesis catheter system and direct ultrasound guidanc e. Approximately 8 liters of straw-colored fluid was removed. The patient was stable throughout the proc edure and remained stable upon discharge from Department of Radiology. IMPRESSION: Successful paracentesis under ultrasound guidance.
== END 2020-07-05 15:15 | disposition home or self-care (01) ==
LOC: RADPROMAIN 11:14
PROVIDERS: ATTEND Internal Medicine Gastroenterology
DX: R18.8 Other ascites (principal); K74.60 Unspecified cirrhosis of liver
CPT/HCPCS: 85049; 49083; P9047

== ENCOUNTER 2020-07-13 11:35 | Day surgery (SDC) | payer MEDICARE ==
[2020-07-13 11:51] LABS: Mean Platelet Volume 8.6; Platelet Count 239 k/uL (150-450)
[2020-07-13 11:56] LABS: African American GFR (CKD) >90 (>60 ml/min/1.73 sqM); Glucose 100 mg/dL (74-99); Non-African American GFR(CKD) 83 (>60 ml/min/1.73 sqM)
[2020-07-13 12:03] LABS: INR 1.1 (<1.2); Prothrombin Time 11.2 sec (9.0-12.0)
[2020-07-13] MEDS: ALBUMIN HUMAN 25% 50 ML in EMPTY BAG 1 BAG IVPB SCH ×3 (12:53→13:45)
[2020-07-13 13:12] VITALS: TEMP 97.6
[2020-07-13 13:49] VITALS: RESP 18
[2020-07-13 14:14] VITALS: BP 114/56; PULSE 74
--- NOTE | 2020-07-13 14:35 | US ---
Ultrasound-guided paracentesis. DATE OF EXAM: 07/13/2020 CLINICAL HISTORY: Ascites The procedure was discussed with the patient. The risks, complications, benefits, and alternatives we re discussed and any questions were answered. Informed consent was obtained. The patient was placed s upine on the ultrasound table and prepped and draped in the usual sterile fashion. All elements of maximal barrier technique were utilized. Under ultrasound guidance, access into the left lower quadrant was obtained, via the paracentesis catheter system and direct ultrasound guidance . Approximately 6.6 liters of straw-colored fluid was removed. The patient was stable throughout the pr ocedure and remained stable upon discharge from Department of Radiology. IMPRESSION: Successful paracentesis under ultrasound guidance.
== END 2020-07-13 14:16 | disposition home or self-care (01) ==
LOC: RADPROMAIN 11:35
PROVIDERS: ATTEND Internal Medicine Gastroenterology
DX: R18.8 Other ascites (principal)
CPT/HCPCS: 82565; 82947; 85049; 85610; 49083; P9047

== ENCOUNTER 2020-07-19 10:46 | Day surgery (SDC) | payer MEDICARE ==
[2020-07-19 11:07] VITALS: RESP 18; TEMP 98.1
[2020-07-19] MEDS: ALBUMIN HUMAN 25% 50 ML in EMPTY BAG 1 BAG IVPB SCH ×4 (11:15→12:15)
[2020-07-19 12:49] VITALS: BP 118/60; PULSE 74
--- NOTE | 2020-07-26 11:48 | US ---
Ultrasound-guided paracentesis. DATE OF EXAM: 07/21/2020 CLINICAL HISTORY: Ascites The procedure was discussed with the patient. The risks, complications, benefits, and alternatives we re discussed and any questions were answered. Informed consent was obtained. The patient was placed s upine on the ultrasound table and prepped and draped in the usual sterile fashion. All elements of maximal barrier technique were utilized. Under ultrasound guidance, access into the right lower quadrant was obtained, via the paracentesis catheter system and direct ultrasound guidanc e. Approximately 7.2 liters of straw-colored fluid was removed. The patient was stable throughout the pr ocedure and remained stable upon discharge from Department of Radiology. IMPRESSION: Successful paracentesis under ultrasound guidance.
== END 2020-07-19 12:50 | disposition home or self-care (01) ==
LOC: RADPROMAIN 10:46
PROVIDERS: ATTEND Internal Medicine Gastroenterology
DX: R18.8 Other ascites (principal); K74.60 Unspecified cirrhosis of liver
CPT/HCPCS: 49083; P9047

== ENCOUNTER 2020-07-25 08:43 | Day surgery (SDC) | payer MEDICARE ==
[2020-07-25 09:23] LABS: Mean Platelet Volume 8.5; Platelet Count 272 k/uL (150-450)
[2020-07-25 09:25] VITALS: TEMP 98
[2020-07-25 09:32] LABS: African American GFR (CKD) >90 (>60 ml/min/1.73 sqM); Glucose 116 mg/dL (74-99); Non-African American GFR(CKD) 82 (>60 ml/min/1.73 sqM)
[2020-07-25 09:44] LABS: INR 1.1 (<1.2); Prothrombin Time 11.1 sec (9.0-12.0)
[2020-07-25] MEDS: ALBUMIN HUMAN 25% 50 ML in EMPTY BAG 1 BAG IVPB SCH ×4 (09:44→11:47)
[2020-07-25 10:35] VITALS: RESP 16
[2020-07-25 11:52] VITALS: BP 116/59; PULSE 76
--- NOTE | 2020-07-25 15:01 | US ---
EXAMINATION TYPE: US paracentesis abd w/image DATE OF EXAM: 07/25/2020 COMPARISON: NONE HISTORY: Ascites. PROCEDURE: Maximal barrier technique was utilized. The skin overlying a suitable pocket of fluid was localized with ultrasound and the overlying skin was prepped and draped. Ultrasound was utilized with sterile technique. Lidocaine was used for local anesthesia and a skin saurabh made with a scalpel. Catheter was advanced under direct ultrasound guidance into a suitable pocket of fluid and approximately 6.7 liter s of serous fluid were removed. Catheter was withdrawn and hemostasis achieved. There is no immedia te complication; the patient is discharged in stable condition. IMPRESSION: STATUS POST ULTRASOUND GUIDED PARACENTESIS FOR PALLIATION OF ASCITES. THIS PROCEDURE WA S PERFORMED BY THE UNDERSIGNED.
== END 2020-07-25 11:50 | disposition home or self-care (01) ==
LOC: RADPROMAIN 08:43
PROVIDERS: ATTEND Internal Medicine Gastroenterology
DX: R18.8 Other ascites (principal); K74.60 Unspecified cirrhosis of liver
CPT/HCPCS: 82565; 82947; 85049; 85610; 36415; 49083; P9047

== ENCOUNTER 2020-08-01 08:49 | Day surgery (SDC) | payer MEDICARE ==
[2020-08-01 09:13] VITALS: TEMP 97.6
[2020-08-01 09:17] LABS: Mean Platelet Volume 8.4; Platelet Count 346 k/uL (150-450)
[2020-08-01 09:27] LABS: INR 1.1 (<1.2); Prothrombin Time 11.8 sec (9.0-12.0)
[2020-08-01] MEDS: ALBUMIN HUMAN 25% 50 ML in EMPTY BAG 1 BAG IVPB SCH ×4 (10:46→11:45)
[2020-08-01 11:37] VITALS: BP 117/61; PULSE 89; RESP 16
--- NOTE | 2020-08-01 12:16 | US ---
Ultrasound-guided paracentesis. DATE OF EXAM: 08/01/2020 CLINICAL HISTORY: Ascites The procedure was discussed with the patient. The risks, complications, benefits, and alternatives we re discussed and any questions were answered. Informed consent was obtained. The patient was placed s upine on the ultrasound table and prepped and draped in the usual sterile fashion. All elements of maximal barrier technique were utilized. Under ultrasound guidance, access into the left lower quadrant was obtained, via the paracentesis catheter system and direct ultrasound guidance . Approximately 7.3 liters of straw-colored fluid was removed. The patient was stable throughout the pr ocedure and remained stable upon discharge from Department of Radiology. IMPRESSION: Successful paracentesis under ultrasound guidance.
== END 2020-08-01 11:58 | disposition home or self-care (01) ==
LOC: RADPROMAIN 08:49
PROVIDERS: ATTEND Internal Medicine Gastroenterology
DX: R18.8 Other ascites (principal); K74.60 Unspecified cirrhosis of liver
CPT/HCPCS: 82565; 82947; 85049; 85610; 36415; 49083; P9047

== ENCOUNTER 2020-08-07 06:39 | Day surgery (SDC) | payer MEDICARE ==
[2020-08-02 12:20] VITALS: BMI 36.0
[~2020-08-07 06:39] MED LIST changes: +LIDOCAINE 1% (10MG/ML) FOR IV START INTRADERMA PRN
[2020-08-07 07:26] LABS: Glucose,Whole Blood 115 mg/dL (75-99)
[2020-08-07 07:31] VITALS: TEMP 97
[2020-08-07] MEDS ORDERED: PROPOFOL 10 MG/ML 20 ML VIAL IV ONE (07:38)
[2020-08-07] MEDS ORDERED: LIDOCAINE 1% INJ 10MG/ML (20 ML MDV) ONE (07:38)
--- NOTE | 2020-08-07 08:10 | P.PCN ---
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 Previously she underwent esophageal banding on 06/12/2020 with 5 bands placed over distal esophageal varices. PROCEDURE PERFORMED: Esophagogastroduodenoscopy with esophageal banding. PREOPERATIVE DIAGNOSIS: Esophageal varices, cirrhosis, decompensated Stuart cirrhosis. ESTIMATED BLOOD LOSS: Minimal. IV sedation per anesthesia. PROCEDURE: After informed consent was obtained, the patient was brought into the endoscopy unit. IV sedation was administered by Anesthesia under continuous monitoring. Initially the Olympus GIF-190 video endoscope was inserted into the mouth. Esophagus intubated without any difficulty. It was gradually advanced into the stomach and duodenum and carefully examined. The bulb and the second part of the duodenum appeared normal. The scope at this time was withdrawn to the stomach, adequately insufflated with air, and upon careful examination, mucosa of the antrum, body, cardia and the fundus appeared grossly normal except for moderate erythema and irritation in the antrum suggestive of moderate antral gastritis previously seen on EGD. The scope was then withdrawn into the esophagus. The GE junction was located at 39 cm from the incisors, with 1 column moderate-sized varices noted as well as changes consistent with previous banding, with esophageal band placed over the varices for a total of 2 bands placed. The esophagus appeared normal. There were no erosions or ulcerations seen and the patient tolerated the procedure well. IMPRESSION: 1. Moderate esophageal varices treated with esophageal band ligation (2 bands placed). 2. Moderate antral gastritis. RECOMMENDATIONS: The findings of this examination were discussed with the patient . Okay to resume diet, sodium restricted. Continue current medical management. Continue Protonix therapy. Recommend repeat EGD and 3 months for evaluation of esophageal varices, overall improvement.
[2020-08-07 08:21] VITALS: RESP 16
[2020-08-07 08:23] VITALS: BP 111/70; PULSE 66
== END 2020-08-07 09:02 | disposition home or self-care (01) ==
LOC: ORWHC2ENDO 06:39
PROVIDERS: ATTEND Internal Medicine
DX: K75.81 Nonalcoholic steatohepatitis (NASH) (principal); I85.10 Secondary esophageal varices without bleeding; K29.70 Gastritis, unspecified, without bleeding; K74.60 Unspecified cirrhosis of liver; R18.8 Other ascites; E11.9 Type 2 diabetes mellitus without complications; I25.10 Atherosclerotic heart disease of native coronary artery without angina pectoris; I48.91 Unspecified atrial fibrillation; I10 Essential (primary) hypertension; E78.5 Hyperlipidemia, unspecified; K21.9 Gastro-esophageal reflux disease without esophagitis; Z87.891 Personal history of nicotine dependence; Z88.8 Allergy status to other drugs, medicaments and biological substances; Z91.030 Bee allergy status; Z79.899 Other long term (current) drug therapy; Z79.891 Long term (current) use of opiate analgesic; Z79.01 Long term (current) use of anticoagulants; Z79.890 Hormone replacement therapy; Z98.890 Other specified postprocedural states; Z96.653 Presence of artificial knee joint, bilateral; Z86.711 Personal history of pulmonary embolism
CPT/HCPCS: 43244; J2001; J2704

== ENCOUNTER 2020-08-08 09:00 | Day surgery (SDC) | payer MEDICARE ==
[2020-08-08 09:49] LABS: Mean Platelet Volume 7.9; Platelet Count 321 k/uL (150-450)
[2020-08-08 09:58] VITALS: TEMP 98
[2020-08-08 10:00] LABS: INR 1.1 (<1.2); Prothrombin Time 11.9 sec (9.0-12.0)
[2020-08-08] MEDS: ALBUMIN HUMAN 25% 50 ML in EMPTY BAG 1 BAG IVPB SCH ×4 (10:18→11:27)
[2020-08-08 10:44] VITALS: RESP 16
[2020-08-08 11:42] VITALS: BP 109/45; PULSE 67
--- NOTE | 2020-08-08 11:59 | US ---
Ultrasound-guided paracentesis. DATE OF EXAM: 08/08/2020 CLINICAL HISTORY: Ascites The procedure was discussed with the patient. The risks, complications, benefits, and alternatives we re discussed and any questions were answered. Informed consent was obtained. The patient was placed s upine on the ultrasound table and prepped and draped in the usual sterile fashion. All elements of maximal barrier technique were utilized. Under ultrasound guidance, access into the right lower quadrant was obtained, via the paracentesis catheter system and direct ultrasound guidanc e. Approximately 7.2 liters of straw-colored fluid was removed. The patient was stable throughout the pr ocedure and remained stable upon discharge from Department of Radiology. IMPRESSION: Successful paracentesis under ultrasound guidance.
== END 2020-08-08 11:30 | disposition home or self-care (01) ==
LOC: RADPROMAIN 09:00
PROVIDERS: ATTEND Internal Medicine Gastroenterology
DX: R18.8 Other ascites (principal); K74.60 Unspecified cirrhosis of liver
CPT/HCPCS: 82565; 82947; 85049; 85610; 36415; 49083; P9047

== ENCOUNTER 2020-08-14 08:59 | Day surgery (SDC) | payer MEDICARE ==
[~2020-08-14 08:59] MED LIST changes: +ALBUMIN HUMAN 25% 50 ML in EMPTY BAG 1 BAG IVPB SCH; -LACTATED RINGERS 1,000 ML IV SCH; -LIDOCAINE 1% (10MG/ML) FOR IV START INTRADERMA PRN
[2020-08-14 09:42] VITALS: RESP 22; TEMP 98.4
[2020-08-14 09:59] VITALS: BP 110/56; PULSE 117
== END 2020-08-14 09:40 | disposition home or self-care (01) ==
LOC: RADPROMAIN 08:59
PROVIDERS: ATTEND Internal Medicine Gastroenterology
DX: R18.8 Other ascites (principal); K74.60 Unspecified cirrhosis of liver; Z53.8 Procedure and treatment not carried out for other reasons

== ENCOUNTER 2020-08-14 09:42 | Inpatient (IN) | payer MEDICARE ==
[2020-08-14 10:37] LABS: Anisocytosis Moderate; Basophils % (A) 0 %; Eosinophils # (A) 0.1 k/uL (0-0.7); Eosinophils % (A) 1 %; HCT 27.3 % (34.0-46.0); HGB 8.5 gm/dL (11.4-16.0); Hypochromasia Marked; Lymphocytes # (A) 0.6 k/uL (1.0-4.8); Lymphocytes % (A) 8 %; MCH 25.6 pg (25.0-35.0); MCV 82.4 fL (80.0-100.0); Mean Platelet Volume 8.1; Microcytosis Slight; Monocytes # (A) 0.5 k/uL (0-1.0); Monocytes % (A) 6 %; Neutrophils # (A) 6.3 k/uL (1.3-7.7); Neutrophils % (A) 83 %; Platelet Count 356 k/uL (150-450); RBC 3.31 m/uL (3.80-5.40); RDW 20.4 % (11.5-15.5); WBC 7.5 k/uL (3.8-10.6)
[2020-08-14 10:45] LABS: INR 1.1 (<1.2); Partial Thromboplastin Time 23.6 sec (22.0-30.0); Prothrombin Time 11.4 sec (9.0-12.0)
[2020-08-14 10:47] LABS: Calcium 8.7 mg/dL (8.4-10.2); Potassium 4.3 mmol/L (3.5-5.1); Total Bilirubin 0.4 mg/dL (0.2-1.3); Total Protein 5.2 g/dL (6.3-8.2)
--- NOTE | 2020-08-14 11:32 | ED ---
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 Patient states she has had diarrhea for the past 3 days she states it is very loose and green she denies any dark or bloody stools. Patient denies any vomiting she states she has indigestion which she believes is related to her ascites she states every time her abdomen gets very distended she develops indigestion as well as some shortness of breath. She denies any chest pain fevers or notable warmth the abdomen. Patient denies. Deep inspiration or leg swelling patient is no additional complaints upon arrival she appears no ntoxic no distress. - Related Data Home Medications Medication Instructions Recorded Confirmed Levothyroxine Sodium [Synthroid] 25 mcg PO DAILY@0700 03/23/14 08/14/20 Montelukast [Singulair] 10 mg PO HS@219903/23/14 08/14/20 Oxybutynin Chloride [Ditropan XL] 10 mg PO DAILY@1000 03/23/14 08/14/20 HYDROcodone/APAP 5-325MG [[place] 1 tab PO QID@07,10,12,16 06/13/15 08/14/20 5-325] Multivit-Min/FA/Lycopen/Lutein 1 tab PO DAILY@0700 06/13/15 08/14/20 [Centrum Silver Tablet] Niacin 500 mg PO BID@1000,0 04/07/17 08/14/20 amLODIPine [Norvasc] 2.5 mg PO BID@1000,0 04/07/17 08/14/20 Metoprolol Succinate [Toprol XL] 25 mg PO DAILY@1200 09/02/17 08/14/20 lisinopriL [Zestril] 20 mg PO DAILY@1200 09/02/17 08/14/20 Albuterol Sulfate [Proair Hfa] 1 - 2 puff INHALATION Q6HR PRN 03/14/20 08/14/20 Apixaban [Eliquis] 5 mg PO BID@1000,2200 03/14/20 08/14/20 Evolocumab [Repatha Sureclick] 140 mg SQ Q14D 03/14/20 08/14/20 Diphenox-Atrop 2.5-0.025 mg 1 tab PO DAILY PRN 04/13/20 08/14/20 [Lomotil] EPINEPHrine (Auto Inject) [Epipen] 0.3 mg IM ONCE PRN 04/13/20 08/14/20 Ketoconazole/Hydrocortisone 1 applic TOPICAL DAILY PRN 05/15/20 08/14/20 [Hydrocort 2.5%-Ketoconazole 2%] Vitamin D 1 tab PO DAILY 06/08/20 08/14/20 Omeprazole 40 mg PO DAILY 06/20/20 08/14/20 Allergies Allergy/AdvReac Type Severity Reaction Status Date / Time venom-wasp [Wasp Venom] Allergy Severe Swelling Verified 08/14/20 10:27 adhesive Allergy Unknown Rash/Hives Verified 08/14/20 10:27 amoxicillin [Amoxicillin] Allergy Unknown Rash/Hives, Verified 08/14/20 10:27 itching fenofibrate nanocrystallized Allergy Unknown Rash/Hives,joint Verified 08/14/20 10:27 [From Tricor] pain fenofibrate,micronized Allergy Unknown Rash/Hives, Verified 08/14/20 10:27 [From Tricor] joint pain hydrochlorothiazide Allergy Unknown Rash/Hives Verified 08/14/20 10:27 Neuromuscular Blockers, Allergy Unknown Rash/Hives Verified 08/14/20 10:27 Steroidal [Steroidal Neuromuscular Blockers] Penicillins Allergy Unknown Rash/Hives, Verified 08/14/20 10:27 red skin shellfish derived Allergy Unknown SKIN RED Verified 08/14/20 10:27 AND WARM simvastatin [From Zocor] Allergy Unknown Rash/Hives, Verified 08/14/20 10:27 joint pain Zsbivos-Mvm-Jxk Reductase Allergy Unknown Rash/Hives, Verified 08/14/20 10:27 Inhibitor joint pain venom-honey bee Allergy Unknown Swelling Verified 08/14/20 10:27 [bee venom (honey bee)] cat dander Allergy Rash/Hives Verified 08/14/20 10:27 ciprofloxacin HCl Allergy Unknown Verified 08/14/20 10:27 [From Cipro] sulfamethoxazole Allergy Rash/Hives Verified 08/14/20 10:27 talc Allergy Rash/Hives Verified 08/14/20 10:27 walnut Allergy Rash/Hives Verified 08/14/20 10:27 clarithromycin AdvReac warm and Verified 08/14/20 10:27 flushed furosemide AdvReac dizzy, Verified 08/14/20 10:27 lightheaded minocycline AdvReac warm and Verified 08/14/20 10:27 flushed prednisone AdvReac Nausea Verified 08/14/20 10:27 soy AdvReac Nausea & Verified 08/14/20 10:27 Vomiting Review of Systems ROS Statement: Those systems with pertinent positive or pertinent negative responses have been documented in the HPI. ROS Other: All systems not noted in ROS Statement are negative. Past Medical History Past Medical History: Atrial Fibrillation, Asthma, Cancer, Diabetes Mellitus, Deep Vein Thrombosis (DVT), Hyperlipidemia, Hypertension, Liver Disease, Osteoarthritis (OA), Pulmonary Embolus (PE) Additional Past Medical History / Comment(s): VERTIGO, CIRRHOSIS from fattty liver, DIABETES (DIET CONTROLLED), OVER ACTIVE BLADDER, DVT & PE AFTER LEG FX. WEARS DENTAL SPACER TO PREVENT GRINDING TEETH, ascites, skin cancer History of Any Multi-Drug Resistant Organisms: None Reported Past Surgical History: Back Surgery, Breast Surgery, Hysterectomy, Joint Replacement, Orthopedic Surgery Additional Past Surgical History / Comment(s): CATARACTS, RT BREAST FATTY TUMOR, ROSI KNEE REPLACEMENT, ROSI SHOULDER REPLACEMENT, NECK FUSION, ROSI CARPAL TUNNEL, ROSI TRIGGER FINGER, RT FOOT BONE SPUR, RIGHT LEG FX, multiple large volume paracentesis Past Anesthesia/Blood Transfusion Reactions: Motion Sickness, Postoperative Nausea & Vomiting (PONV) Additional Past Anesthesia/Blood Transfusion Reaction / Comment(s): Patient r eceived blood in 1959, unsure if reactions would occur now. Past Psychological History: No Psychological Hx Reported Smoking Status: Former smoker Past Alcohol Use History: None Reported Past Drug Use History: None Reported - Past Family History Mother History Unknown: Yes Father History Unknown: Yes General Exam - General Exam Comments Initial Comments: General: The patient is awake and alert, in no distress Eye: Pupils are equal, round and reactive to light, extra-ocular movements are intact. No nystagmus. There is normal conjunctiva bilaterally. No signs of icterus. Ears, nose, mouth and throat: There are moist mucous membranes and no oral lesions. Neck: The neck is supple, there is no tenderness or JVD. Cardiovascular: There is a regular rate and rhythm. No murmur, rub or gallop is appreciated. Respiratory: Lungs are clear to auscultation, respirations are non-labored, breath sounds are equal. No wheezes, stridor, rales, or rhonchi. Gastrointestinal: Very distended abdomen, taunt, no warmth, diffuse tenderness of the abdomen, abdomen without obvious masses. There is no rebound or guarding present. Musculoskeletal: Normal ROM, no tenderness. Strength 5/5. Sensation intact. radial pulses equal bilaterally 2+. Neurological: A&O x 3. CN II-XII intact grossly, There are no obvious motor or sensory deficits. Coordination appears grossly intact. Speech is normal. Skin: Skin is warm and dry and no rashes or lesions are noted. Psychiatric: Cooperative, appropriate mood & affect, normal judgment. Limitations: no limitations Course Vital Signs 08/14/20 09:48 Temperature 98.5 F Pulse Rate 76 Respiratory 18 Rate Blood Pressure 122/60 O2 Sat by Pulse 100 Oximetry Medical Decision Making - Medical Decision Making 80yo presenting for diarrhea. pt also complaining of abdominal distention pain. extremely distended abdomen. pt labs stable. mild hyponatremia. pt given IVF. patient EKG significant artifacnt, no obvious ischemic changes. pt troponin (-). no chest pain. pt will be admitted for paracentesis, IR and GI on consultation. Dr Sanchez accepted admission and evaluated patient in ER. - Lab Data Result diagrams: 08/14/20 10:22 08/14/20 10:22 Lab Results 08/14/20 08/14/20 08/14/20 Range/Units 10:22 10:22 10:22 WBC 7.5 (3.8-10.6) k/uL RBC 3.31 L (3.80-5.40) m/uL Hgb 8.5 L (11.4-16.0) gm/dL Hct 27.3 L (34.0-46.0) % MCV 82.4 (80.0-100.0) fL MCH 25.6 (25.0-35.0) pg MCHC 31.0 (31.0-37.0) g/dL RDW 20.4 H (11.5-15.5) % Plt Count 356 (150-450) k/uL MPV 8.1 Neutrophils % 83 % Lymphocytes % 8 % Monocytes % 6 % Eosinophils % 1 % Basophils % 0 % Neutrophils # 6.3 (1.3-7.7) k/uL Lymphocytes # 0.6 L (1.0-4.8) k/uL Monocytes # 0.5 (0-1.0) k/uL Eosinophils # 0.1 (0-0.7) k/uL Basophils # 0.0 (0-0.2) k/uL Hypochromasia Marked Anisocytosis Moderate Microcytosis Slight PT 11.4 (9.0-12.0) sec INR 1.1 (<1.2) APTT 23.6 (22.0-30.0) sec Sodium 130 L (137-145) mmol/L Potassium 4.3 (3.5-5.1) mmol/L Chloride 107 (98-107) mmol/L Carbon Dioxide 18 L (22-30) mmol/L Anion Gap 5 mmol/L BUN 31 H (7-17) mg/dL Creatinine 0.88 (0.52-1.04) mg/dL Est GFR (CKD-EPI)AfAm 73 (>60 ml/min/1.73 sqM) Est GFR (CKD-EPI)NonAf 63 (>60 ml/min/1.73 sqM) Glucose 118 H (74-99) mg/dL Plasma Lactic Acid Zeus (0.7-2.0) mmol/L Calcium 8.7 (8.4-10.2) mg/dL Total Bilirubin 0.4 (0.2-1.3) mg/dL AST 31 (14-36) U/L ALT 17 (4-34) U/L Alkaline Phosphatase 75 (38-126) U/L Troponin I (0.000-0.034) ng/mL Total Protein 5.2 L (6.3-8.2) g/dL Albumin 3.0 L (3.5-5.0) g/dL Amylase 60 (30-110) U/L Lipase 321 H (23-300) U/L 08/14/20 08/14/20 Range/Units 10:22 10:22 WBC (3.8-10.6) k/uL RBC (3.80-5.40) m/uL Hgb (11.4-16.0) gm/dL Hct (34.0-46.0) % MCV (80.0-100.0) fL MCH (25.0-35.0) pg MCHC (31.0-37.0) g/dL RDW (11.5-15.5) % Plt Count (150-450) k/uL MPV Neutrophils % % Lymphocytes % % Monocytes % % Eosinophils % % Basophils % % Neutrophils # (1.3-7.7) k/uL Lymphocytes # (1.0-4.8) k/uL Monocytes # (0-1.0) k/uL Eosinophils # (0-0.7) k/uL Basophils # (0-0.2) k/uL Hypochromasia Anisocytosis Microcytosis PT (9.0-12.0) sec INR (<1.2) APTT (22.0-30.0) sec Sodium (137-145) mmol/L Potassium (3.5-5.1) mmol/L Chloride (98-107) mmol/L Carbon Dioxide (22-30) mmol/L Anion Gap mmol/L BUN (7-17) mg/dL Creatinine (0.52-1.04) mg/dL Est GFR (CKD-EPI)AfAm (>60 ml/min/1.73 sqM) Est GFR (CKD-EPI)NonAf (>60 ml/min/1.73 sqM) Glucose (74-99) mg/dL Plasma Lactic Acid Zeus 1.7 (0.7-2.0) mmol/L Calcium (8.4-10.2) mg/dL Total Bilirubin (0.2-1.3) mg/dL AST (14-36) U/L ALT (4-34) U/L Alkaline Phosphatase (38-126) U/L Troponin I <0.012 (0.000-0.034) ng/mL Total Protein (6.3-8.2) g/dL Albumin (3.5-5.0) g/dL Amylase (30-110) U/L Lipase (23-300) U/L Disposition Clinical Impression: Diarrhea, Abdominal pain, Ascites, Abdominal distention, Hyponatremia Disposition: ADMITTED IP TO THIS HOSP Condition: Stable Is patient prescribed a controlled substance at d/c from ED?: No Time of Disposition: 12:44 Decision to Admit Reason: Admit from EC Decision Date: 08/14/20 Decision Time: 12:44
--- NOTE | 2020-08-14 12:11 | CT ---
EXAMINATION TYPE: CT abdomen pelvis w con DATE OF EXAM: 08/14/2020 COMPARISON: 03/14/2020 INDICATION: Abd pain DLP: 1931.8 mGycm, Automated exposure control for dose reduction was used. CONTRAST: 100 mL of Isovue 300. Study performed without Oral Contrast TECHNIQUE: Axial images were obtained from above the diaphragm to the pubic rami in the axial plane a t 5 mm thick sections. Reconstructed images are reviewed on the computer in the coronal plane. FINDINGS: Limited CT sections are obtained the lung bases. The lung bases are clear. CT ABDOMEN: Diffuse ascites is present throughout the abdomen and pelvis. Liver: There is some macrolobulation along the borders of the liver suggestive for cirrhosis of liver is similar to prior exam. Spleen: Normal Pancreas: Atrophic Adrenal glands: The adrenal glands are normal. Gallbladder: Normal Kidneys: No masses are evident. No hydronephrosis is present. No cysts are present. Aorta: Vascular calcification is within the aorta. Inferior vena cava: Normal. CT PELVIS: Loops of bowel within the abdomen and pelvis are normal. The study is without oral contrast limit ing bowel evaluation. Appendix: Not identified. Suspicious inflammatory changes are not identified Urinary bladder: Normal. A urethral calcification or phlebolith low within the pelvis may be present. Series 201 image [id number]. Genitourinary structures: Uterus and ovaries are not identified. Osseous structures: No suspicious lytic or sclerotic lesions. Degenerative changes are through the matthew mbar spine with fixation rods and pedicle screws limiting evaluation. Spondylolisthesis of L4 anterio r and L5 may be present. There is spondylolysis spondylolysis through the thoracic or lumbar spine. C onsider ankylosing spondylitis within the differential. IMPRESSIONS: 1. Ascites. 2. Cirrhosis of liver, stable in appearance from comparison. 3. Atrophic pancreas. 4. Consider urethral calcification. No ureteral or renal stones are identified
[2020-08-14] MEDS ORDERED: NALOXONE 0.4 MG/ML 1 ML VIAL IV PRN (12:31)
[2020-08-14] MEDS ORDERED: SODIUM CHLORIDE 0.9% 1,000 ML IV SCH (12:45)
[2020-08-14] MEDS ORDERED: HYDROCORTISONE TOPICAL PRN (12:52)
[2020-08-14] MEDS ORDERED: [UNRECOGNIZED DRUG - OTHER] TOPICAL PRN (12:52)
[2020-08-14] MEDS ORDERED: KETOCONAZOLE TOPICAL PRN (12:52)
[2020-08-14] MEDS ORDERED: EPINEPHrine 1 MG/ML 1 ML AMP IM PRN (12:52)
[2020-08-14] MEDS ORDERED: ALBUTEROL NEBULIZED 2.5 MG/3 ML INHALATION PRN (12:52)
--- NOTE | 2020-08-14 13:06 | P.HPIM ---
History of Present Illness This is a pleasant 80 years old female with past medical history of liver cirrhosis secondary to [place], history of esophageal banding on 05/2020 where 5 bands placed. Another 2 bands were placed for EGD last week through GI team Other medical problems including atrial fibrillation, asthma, diabetes mellitus, deep venous thrombosis, hyperlipidemia, hypertension, osteoarthritis, pulmonary embolism, . She is a patient of Dr. 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 She was coming today for doing paracentesis as a scheduled however it was noticed that she has diarrhea for the last couple days like yesterday she had 12 episodes of loose bowel movement, there is no blood in it, no nausea vomiting. Stool looks a greenish, her son has similar diarrhea with a greenish stool of one-day duration and resolved. Also she has abdominal pain but does looks like related to her distended abdomen from ascites. She denies chest pain or dyspnea or headache. At baseline she uses a cane or a walker She denies smoking, alcohol or illicit drugs Vitals are stable. Labs showing hemoglobin 8.5, low lymphocyte at 0.6. INR 1.1, sodium 1:30. Risks of BMP is unremarkable, lactic acid is normal 1.7, jacquelyn er enzymes elevated, lipase slightly up at 321, troponin is negative less than 0.012 CT of the abdomen and pelvis with contrast: Showing ascites, cirrhosis of the liver Review of Systems CONSTITUTIONAL: No fever, no malaise, no fatigue. HEENT: No recent visual problems or hearing problems. Denied any sore throat. CARDIOVASCULAR: No orthopnea, PND, no palpitations, no syncope. PULMONARY: No shortness of breath, no cough, no hemoptysis. GASTROINTESTINAL:, no nausea, no vomiting, Normoactive bowel sounds. NEUROLOGICAL: No headaches, no weakness, no numbness. HEMATOLOGICAL: Denies any bleeding or petechiae. GENITOURINARY: Denies any burning micturition, frequency, or urgency. MUSCULOSKELETAL/RHEUMATOLOGICAL: Denies any joint pain, swelling, or any muscle pain. ENDOCRINE: Denies any polyuria or polydipsia. Past Medical History Past Medical History: Atrial Fibrillation, Asthma, Cancer, Diabetes Mellitus, Deep Vein Thrombosis (DVT), Hyperlipidemia, Hypertension, Liver Disease, Osteoarthritis (OA), Pulmonary Embolus (PE) Additional Past Medical History / Comment(s): VERTIGO, CIRRHOSIS from fattty liver, DIABETES (DIET CONTROLLED), OVER ACTIVE BLADDER, DVT & PE AFTER LEG FX. WEARS DENTAL SPACER TO PREVENT GRINDING TEETH, ascites, skin cancer History of Any Multi-Drug Resistant Organisms: None Reported Past Surgical History: Back Surgery, Breast Surgery, Hysterectomy, Joint Replacement, Orthopedic Surgery Additional Past Surgical History / Comment(s): CATARACTS, RT BREAST FATTY TUMOR, ROSI KNEE REPLACEMENT, ROSI SHOULDER REPLACEMENT, NECK FUSION, ROSI CARPAL TUNNEL, ROSI TRIGGER FINGER, RT FOOT BONE SPUR, RIGHT LEG FX, multiple large volume paracentesis Past Anesthesia/Blood Transfusion Reactions: Motion Sickness, Postoperative Nausea & Vomiting (PONV) Additional Past Anesthesia/Blood Transfusion Reaction / Comment(s): Patient received blood in 1959, unsure if reactions would occur now. Past Psychological History: No Psychological Hx Reported Smoking Status: Former smoker Past Alcohol Use History: None Reported Past Drug Use History: None Reported - Past Family History Mother History Unknown: Yes Father History Unknown: Yes Medications and Allergies Home Medications Medication Instructions Recorded Confirmed Type Levothyroxine Sodium [Synthroid] 25 mcg PO DAILY@0700 03/23/14 08/14/20 History Montelukast [Singulair] 10 mg PO HS@0 03/23/14 08/14/20 History Oxybutynin Chloride [Ditropan XL] 10 mg PO DAILY@1000 03/23/14 08/14/20 History HYDROcodone/APAP 5-325MG [[place] 1 tab PO QID@07,10,12,16 06/13/15 08/14/20 History 5-325] Multivit-Min/FA/Lycopen/Lutein 1 tab PO DAILY@0700 06/13/15 08/14/20 History [Centrum Silver Tablet] Niacin 500 mg PO BID@1000,0 04/07/17 08/14/20 History amLODIPine [Norvasc] 2.5 mg PO BID@1000,0 04/07/17 08/14/20 History Metoprolol Succinate [Toprol XL] 25 mg PO DAILY@1200 09/02/17 08/14/20 History lisinopriL [Zestril] 20 mg PO DAILY@1200 09/02/17 08/14/20 History Albuterol Sulfate [Proair Hfa] 1 - 2 puff INHALATION Q6HR PRN 03/14/20 08/14/20 History Apixaban [Eliquis] 5 mg PO BID@1000,2200 03/14/20 08/14/20 History Evolocumab [Repatha Sureclick] 140 mg SQ Q14D 03/14/20 08/14/20 History Diphenox-Atrop 2.5-0.025 mg 1 tab PO DAILY PRN 04/13/20 08/14/20 History [Lomotil] EPINEPHrine (Auto Inject) [Epipen] 0.3 mg IM ONCE PRN 04/13/20 08/14/20 History Ketoconazole/Hydrocortisone 1 applic TOPICAL DAILY PRN 05/15/20 08/14/20 History [Hydrocort 2.5%-Ketoconazole 2%] Vitamin D 1 tab PO DAILY 06/08/20 08/14/20 History Omeprazole 40 mg PO DAILY 06/20/20 08/14/20 History Allergies Allergy/AdvReac Type Severity Reaction Status Date / Time venom-wasp [Wasp Venom] Allergy Severe Swelling Verified 08/14/20 10:27 adhesive Allergy Unknown Rash/Hives Verified 08/14/20 10:27 amoxicillin [Amoxicillin] Allergy Unknown Rash/Hives, Verified 08/14/20 10:27 itching fenofibrate nanocrystallized Allergy Unknown Rash/Hives,joint Verified 08/14/20 10:27 [From Tricor] pain fenofibrate,micronized Allergy Unknown Rash/Hives, Verified 08/14/20 10:27 [From Tricor] joint pain hydrochlorothiazide Allergy Unknown Rash/Hives Verified 08/14/20 10:27 Neuromuscular Blockers, Allergy Unknown Rash/Hives Verified 08/14/20 10:27 Steroidal [Steroidal Neuromuscular Blockers] Penicillins Allergy Unknown Rash/Hives, Verified 08/14/20 10:27 red skin shellfish derived Allergy Unknown SKIN RED Verified 08/14/20 10:27 AND WARM simvastatin [From Zocor] Allergy Unknown Rash/Hives, Verified 08/14/20 10:27 joint pain Zhjpmqg-Ekr-Nhn Reductase Allergy Unknown Rash/Hives, Verified 08/14/20 10:27 Inhibitor joint pain venom-honey bee Allergy Unknown Swelling Verified 08/14/20 10:27 [bee venom (honey bee)] cat dander Allergy Rash/Hives Verified 08/14/20 10:27 ciprofloxacin HCl Allergy Unknown Verified 08/14/20 10:27 [From Cipro] sulfamethoxazole Allergy Rash/Hives Verified 08/14/20 10:27 talc Allergy Rash/Hives Verified 08/14/20 10:27 walnut Allergy Rash/Hives Verified 08/14/20 10:27 clarithromycin AdvReac warm and Verified 08/14/20 10:27 flushed furosemide AdvReac dizzy, Verified 08/14/20 10:27 lightheaded minocycline AdvReac warm and Verified 08/14/20 10:27 flushed prednisone AdvReac Nausea Verified 08/14/20 10:27 soy AdvReac Nausea & Verified 08/14/20 10:27 Vomiting Physical Exam Vitals: Vital Signs Temp Pulse Resp BP Pulse Ox 08/14/20 09:48 98.5 F 76 18 122/60 100 Intake and Output 08/13/20 08/14/20 08/14/20 22:59 06:59 14:59 Other: Weight 89.358 kg GENERAL: The patient is alert and oriented x3, not in any acute distress. Well developed, well nourished. HEENT: Pupils are round and equally reacting to light. EOMI. No scleral icterus. No conjunctival pallor. Normocephalic, atraumatic. No pharyngeal erythema. No thyromegaly. CARDIOVASCULAR: S1 and S2 present. No murmurs, rubs, or gallops. PULMONARY: Chest is clear to auscultation, no wheezing or crackles. -ABDOMEN: Soft, nontender, severely distended abdomen with some tenderness, normoactive bowel sounds. No palpable organomegaly. MUSCULOSKELETAL: No joint swelling or deformity. EXTREMITIES: No cyanosis, clubbing, or pedal edema. NEUROLOGICAL: Gross neurological examination did not reveal any focal deficits. SKIN: No rashes. No petechiae Results CBC & Chem 7: 08/14/20 10:22 08/14/20 10:22 Labs: Abnormal Lab Results - Last 24 Hours (Table) 08/14/20 08/14/20 Range/Units 10:22 10:22 RBC 3.31 L (3.80-5.40) m/uL Hgb 8.5 L (11.4-16.0) gm/dL Hct 27.3 L (34.0-46.0) % RDW 20.4 H (11.5-15.5) % Lymphocytes # 0.6 L (1.0-4.8) k/uL Sodium 130 L (137-145) mmol/L Carbon Dioxide 18 L (22-30) mmol/L BUN 31 H (7-17) mg/dL Glucose 118 H (74-99) mg/dL Total Protein 5.2 L (6.3-8.2) g/dL Albumin 3.0 L (3.5-5.0) g/dL Lipase 321 H (23-300) U/L Assessment and Plan Assessment: Decompensated Liver cirrhosis secondary to Stuart with ascites Esophageal varices Status post esophageal banding 1 week prior to admission hypervolemic hyponatremia Chronic atrial fibrillation Chronic asthma, not an active issue Diabetes mellitus History of deep venous thrombosis/pulmonary embolism Hyperlipidemia Hypertension Plan: This is a pleasant 80 years old female who presents with diarrhea and ascites. Will check stool studies and C. diff. Interventional radiology team will do paracentesis for the patient GI team consult Labs and medication were reviewed.. Continue same treatment. Continue with symptomatic treatment. Resume home medication. Monitor lytes and vitals. DVT and GI prophylaxis. Further recommendations depends on the clinical course of the patient DVT prophylaxis: On Eliquis GI Prophylaxis: Pepcid PT/OT: Pending
[2020-08-14 13:20] LABS: Appearance,Urine Clear (Clear); Bilirubin,Urine Negative (Negative); Blood,Urine Negative (Negative); Color,Urine Yellow; Glucose,Urine (UA) Negative (Negative); Ketones,Urine Negative (Negative); Leukocyte Esterase,Urine Negative (Negative); Nitrite,Urine Negative (Negative); Protein,Urine Negative (Negative); Specific Gravity,Urine >1.050 (1.001-1.035); Urobilinogen,Urine <2.0 mg/dL (<2.0)
[2020-08-14] MEDS ORDERED: LOPERAMIDE 2 MG CAP PO PRN (15:25)
--- NOTE | 2020-08-14 16:35 | CONS ---
CONSULTATION DATE OF DICTATION: August 14, 2020 REASON FOR CONSULTATION: Acute diarrhea and ascites. HISTORY OF PRESENT ILLNESS: The patient is a 80-year-old pleasant white female with history of nonalcoholic fatty liver disease progressed to liver cirrhosis diagnosed about 10 years ago, ascites requiring paracentesis almost on a weekly basis, history of esophageal varices for which she underwent esophageal variceal ligation about a week ago, came to the outpatient radiology for paracentesis today. Apparently she was having severe diarrhea and she was not able to stay still for the paracentesis and hence she was sent to the emergency room and subsequently admitted to the hospital for further evaluation. She has been having about 10 to 15 bowel movements a day which are loose to watery in consistency with no blood or mucus in the stool. She denies any associated abdominal pain. She reports no nausea, vomiting. She denies any fever, chills, or night sweats. She reports no recent antibiotic use. She does not recall having diarrhea in the recent past. PAST MEDICAL HISTORY: Her past medical history is significant for hypothyroidism, nonalcoholic cirrhosis of the liver, COPD, hypertension, hyperlipidemia, atrial fibrillation on Eliquis and gastroesophageal reflux disease. MEDICATIONS: Medications at home include Ditropan, Crenshaw, multivitamin, metoprolol, Norvasc, Eliquis, albuterol, Zestril, Repatha, Lomotil, EpiPen, vitamin D, omeprazole, Synthroid and Singulair. PAST MEDICAL HISTORY: Atrial fibrillation, asthma, diabetes mellitus, DVT, hypertension, hyperlipidemia, degenerative joint disease. PAST SURGICAL HISTORY: Back surgery, breast surgery, hysterectomy, recent EGD with variceal ligation a week ago, right foot surgery, frequent paracenteses. SOCIAL HISTORY: No smoking. No alcohol use. FAMILY HISTORY: Unremarkable. ALLERGIES: Allergies to: AMOXICILLIN, TRICOR, HYDROCHLOROTHIAZIDE, CIPRO, STATINS, ZOCOR, PENICILLIN, WALNUT, CLARITHROMYCIN, LASIX, MINOCYCLINE, PREDNISONE, and SOY. REVIEW OF SYSTEMS: CARDIOPULMONARY: She denies any chest pain or shortness of breath. GENITOURINARY: No dysuria or hematuria. MUSCULOSKELETAL: Unremarkable. SKIN: Unremarkable. GI: As mentioned above. ENT/VISION: Unremarkable. CONSTITUTIONAL: No recent weight loss. No fever, chills, night sweats. HEMATOLOGY: Unremarkable. PHYSICAL EXAMINATION: She appears comfortable. No apparent distress. Vital signs are stable. Blood pressure is 133/86, pulse rate 84 per minute and temperature 98.5. HEENT EXAMINATION: Unremarkable. Conjunctivae pink. Sclerae anicteric. Oral cavity, no lesions. NECK: No JVD or lymph node enlargement. CHEST: Was clear to auscultation. HEART: Regular rate and rhythm. ABDOMEN: Was distended. There was free fluid noted in the abdomen. It was benign. EXTREMITIES: No pedal edema. SKIN: No rashes. NEURO: She is alert and oriented x3. No focal deficits. LABS: WBC 7.5, hemoglobin 8.5, platelets normal. Basic metabolic panel showed a BUN of 31, creatinine 0.88. Albumin 3. AST, ALT, T-bilirubin and alkaline phosphatase are within normal limits. INR 1.1. COVID PCR negative. She did have abdominal and pelvic CAT scan of the abdomen that showed ascites, cirrhosis of the liver, atrophic appearing pancreas and urethral calcification. IMPRESSION: 1. Acute onset of diarrhea for the last 2 days duration in this patient with no recent antibiotic use and no change in her medications. Rule out infectious etiology. CAT scan showed no evidence of colitis. The patient having 10-15 bowel movements a day for the last 2 days. Rule out Clostridium difficile colitis. 2. Non-alcoholic fatty liver disease with cirrhosis of the liver and portal hypertension diagnosed 15 years ago. 3. Ascites requiring large-volume paracentesis. The patient states that she is allergic to most of the diuretics. She has been having paracentesis for the last 5 months and recently has been needing it more frequently on a weekly basis. Did not tolerate diuretics on an outpatient basis. 4. History of diabetes mellitus and hypertension. 5. Atrial fibrillation on Eliquis. RECOMMENDATIONS: 1. Obtain stool studies for C difficile toxin, cultures. 2. If the cultures are negative, we can start her on antimotility agents. 3. Schedule for large-volume paracentesis tomorrow. 4. Continue to hold Eliquis for today. 5. Start her on a clear liquid diet and advance as tolerated. 6. We will follow with you closely. Thank you for this consultation. MMODL / IJN: [id number] /
[2020-08-14 16:59] LABS: Glucose,Whole Blood 177 mg/dL (75-99)
[2020-08-14] MEDS: HYDROcodone/APAP 5-325MG 1 EACH TAB PO SCH ×2 (17:05→21:37)
[2020-08-14] MEDS: DIPHENOX-ATROP 2.5-0.025 MG 1 EACH TAB PO PRN (17:36)
[2020-08-14 20:12] LABS: Glucose,Whole Blood 124 mg/dL (75-99)
[2020-08-14] MEDS: amLODIPine 2.5 MG TAB PO SCH (20:17)
[2020-08-14] MEDS: MONTELUKAST 10 MG TAB PO SCH (20:17)
[2020-08-14] MEDS ORDERED: FAMOTIDINE 20 MG/2 ML VIAL IV SCH (21:00)
[2020-08-14] MEDS: HYDROmorphone 0.5 MG/0.5 ML SYRINGE IVP PRN (22:39)
[2020-08-15] MEDS: HYDROmorphone 0.5 MG/0.5 ML SYRINGE IVP PRN (02:20)
[2020-08-15 07:10] LABS: Anisocytosis Moderate; Basophils % (A) 0 %; Eosinophils # (A) 0.1 k/uL (0-0.7); Eosinophils % (A) 2 %; HCT 24.9 % (34.0-46.0); HGB 7.5 gm/dL (11.4-16.0); Hypochromasia Marked; Lymphocytes # (A) 0.6 k/uL (1.0-4.8); Lymphocytes % (A) 12 %; MCH 25.8 pg (25.0-35.0); MCHC 30.2 g/dL (31.0-37.0); MCV 85.4 fL (80.0-100.0); Mean Platelet Volume 8.4; Microcytosis Slight; Monocytes # (A) 0.4 k/uL (0-1.0); Monocytes % (A) 8 %; Neutrophils # (A) 3.9 k/uL (1.3-7.7); Neutrophils % (A) 75 %; Platelet Count 249 k/uL (150-450); RBC 2.91 m/uL (3.80-5.40); RDW 20.3 % (11.5-15.5); WBC 5.2 k/uL (3.8-10.6)
[2020-08-15 07:38] LABS: Glucose,Whole Blood 120 mg/dL (75-99)
[2020-08-15] MEDS: PANTOPRAZOLE 40 MG TABLET PO SCH (09:28)
[2020-08-15] MEDS: HYDROcodone/APAP 5-325MG 1 EACH TAB PO SCH ×4 (09:28→20:53)
[2020-08-15] MEDS: DIPHENOX-ATROP 2.5-0.025 MG 1 EACH TAB PO PRN (09:28)
[2020-08-15] MEDS: MULTIVITAMINS, THERA 1 EACH TAB PO SCH (09:29)
[2020-08-15] MEDS: CHOLECALCIFEROL 25 MCG (1000 IU) TABLET PO SCH (09:29)
[2020-08-15] MEDS: OXYBUTYNIN 10 MG TAB.ER.24 PO SCH (09:30)
[2020-08-15] MEDS: amLODIPine 2.5 MG TAB PO SCH ×2 (09:30→20:52)
[2020-08-15] MEDS: LEVOTHYROXINE 25 MCG TAB PO SCH (09:31)
[2020-08-15] MEDS ORDERED: CHOLESTYRAMINE (WITH SUGAR) 4 GM PACKET PO SCH (10:00)
[2020-08-15 12:09] LABS: Glucose,Whole Blood 117 mg/dL (75-99)
[2020-08-15 12:30] LABS: African American GFR (CKD) 70.5 (60.0-200.0); Anion Gap 8.5 mmol/L (4.00-12.00); BUN/Creat Ratio 33.33 Ratio (12.00-20.00); Calcium 8.6 mg/dL (8.7-10.3); Carbon Dioxide 18.5 mmol/L (21.6-31.8); Non-African American GFR(CKD) 60.8 (60.0-200.0); Potassium 4.2 mmol/L (3.5-5.5)
[2020-08-15] MEDS: METOPROLOL SUCCINATE (ER) 25 MG TAB.ER.24H PO SCH (13:02)
[2020-08-15] MEDS: lisinopriL 20 MG TAB PO SCH (13:03)
--- NOTE | 2020-08-15 13:44 | US ---
EXAMINATION TYPE: US paracentesis abd w/image DATE OF EXAM: 08/15/2020 COMPARISON: NONE HISTORY: Ascites. PROCEDURE: Maximal barrier technique was utilized. The skin overlying a suitable pocket of fluid was localized with ultrasound and the overlying skin was prepped and draped. Ultrasound was utilized with sterile technique. Lidocaine was used for local anesthesia and a skin saurabh made with a scalpel. Catheter was advanced under direct ultrasound guidance into a suitable pocket of fluid and approximately 6.8 liter s of serous fluid were removed. Catheter was withdrawn and hemostasis achieved. There is no immedia te complication; the patient is discharged in stable condition. IMPRESSION: STATUS POST ULTRASOUND GUIDED PARACENTESIS FOR PALLIATION OF ASCITES. THIS PROCEDURE WA S PERFORMED BY THE UNDERSIGNED.
[2020-08-15] MEDS ORDERED: HYDROcodone/APAP 5-325MG 1 EACH TAB PO SCH (14:30)
[2020-08-15] MEDS: ALBUMIN HUMAN 25% 50 ML in EMPTY BAG 1 BAG IVPB SCH ×2 (14:47→15:34)
--- NOTE | 2020-08-15 15:40 | P.PN ---
Subjective Progress Note Date: 08/15/20 Principal diagnosis: Ascites, diarrhea Tomasz is a 80-year-old pleasantly female with a history of nonalcoholic fatty liver disease that progressed to liver cirrhosis diagnosed about 10 years ago. The patient has ascites and requires frequent paracentesis almost on a weekly basis. She has a history of esophageal varices for which he underwent esophageal variceal ligation about a week ago. Yesterday the patient presented to outpatient radiology for paracentesis, however she had multiple episodes of diarrhea and was unable to have paracentesis completed therefore she was sent to the emergency room. She is status post paracentesis today with a removal of his 6.8 L of fluid. He states she has had 4-7 loose bowel movements today, denies any blood in the stool. She denies any nausea or vomiting. She states she does get some cramping prior to the loose bowel movement. Objective - Vital Signs Vital signs: Vital Signs Temp 97.8 F 08/15/20 07:32 Pulse 97 08/15/20 07:32 Resp 18 08/15/20 07:32 BP 114/61 08/15/20 07:32 Pulse Ox 99 08/15/20 07:32 Intake & Output 08/14/20 08/15/20 08/15/20 18:59 06:59 18:59 Intake Total 500 600 Output Total 2 Balance 500 598 Weight 89.358 kg Intake: Intake, IV Titration 600 Amount Sodium Chloride 0.9% 1, 600 000 ml @ 75 mls/hr IV . [id number] [facility] Rx#:[id number] Oral 500 Output: Urine/Stool Mix 2 Other: Voiding Method Bedside Commode # Voids 1 # Bowel Movements 1 - Exam General appearance: The patient is alert, oriented, in no acute distress. HET: Head is normocephalic and atraumatic. Conjunctiva pink. Sclera anicteric. Neck: Supple without lymphadenopathy. Abdomen: Soft, nontender, nondistended with bowel sounds. No guarding or rigidity. Extremities: Normal skin color and turgor. No pedal edema Neurological: No focal deficits. Alert and oriented 3. - Labs CBC & Chem 7: 08/15/20 06:39 08/15/20 06:39 Labs: Abnormal Lab Results - Last 24 Hours (Table) 08/14/20 08/14/20 08/14/20 Range/Units 10:22 10:22 12:54 RBC 3.31 L (3.80-5.40) m/uL Hgb 8.5 L (11.4-16.0) gm/dL Hct 27.3 L (34.0-46.0) % MCHC (31.0-37.0) g/dL RDW 20.4 H (11.5-15.5) % Lymphocytes # 0.6 L (1.0-4.8) k/uL Sodium 130 L (137-145) mmol/L Carbon Dioxide 18 L (22-30) mmol/L BUN 31 H (7-17) mg/dL Glucose 118 H (74-99) mg/dL POC Glucose (mg/dL) (75-99) mg/dL Total Protein 5.2 L (6.3-8.2) g/dL Albumin 3.0 L (3.5-5.0) g/dL Lipase 321 H (23-300) U/L Ur Specific [place] >1.050 H (1.001-1.035) 08/14/20 08/14/20 08/15/20 Range/Units 16:58 20:11 06:39 RBC 2.91 L (3.80-5.40) m/uL Hgb 7.5 L (11.4-16.0) gm/dL Hct 24.9 L (34.0-46.0) % MCHC 30.2 L (31.0-37.0) g/dL RDW 20.3 H (11.5-15.5) % Lymphocytes # 0.6 L (1.0-4.8) k/uL Sodium (137-145) mmol/L Carbon Dioxide (22-30) mmol/L BUN (7-17) mg/dL Glucose (74-99) mg/dL POC Glucose (mg/dL) 177 H 124 H (75-99) mg/dL Total Protein (6.3-8.2) g/dL Albumin (3.5-5.0) g/dL Lipase (23-300) U/L Ur Specific [place] (1.001-1.035) 08/15/20 Range/Units 07:35 RBC (3.80-5.40) m/uL Hgb (11.4-16.0) gm/dL Hct (34.0-46.0) % MCHC (31.0-37.0) g/dL RDW (11.5-15.5) % Lymphocytes # (1.0-4.8) k/uL Sodium (137-145) mmol/L Carbon Dioxide (22-30) mmol/L BUN (7-17) mg/dL Glucose (74-99) mg/dL POC Glucose (mg/dL) 120 H (75-99) mg/dL Total Protein (6.3-8.2) g/dL Albumin (3.5-5.0) g/dL Lipase (23-300) U/L Ur Specific [place] (1.001-1.035) Microbiology - Last 24 Hours (Table) 08/14/20 13:16 Stool Culture - Preliminary Stool Assessment and Plan (1) Diarrhea Narrative/Plan: Is a 80-year-old pleasant white female with an acute onset of diarrhea for the last 2-3 days duration with no recent antibiotic use and no change in medication. Rule out infectious etiology. CAT scan showed no evidence of col itis. The patient is having 10-15 bowel movements a day for the last 2 days. Clostridium difficile was negative, lactoferrin was negative. Stool cultures pending. Patient states she has had some improvement today with the number of loose bowel movements, patient was started on Imodium and Lomotil. Current Visit: Yes Status: Acute Code(s): R19.7 - DIARRHEA, UNSPECIFIED SNOMED Code(s): 80229338 (2) Non-alcoholic fatty liver disease Narrative/Plan: The patient has a history of nonalcoholic fatty liver disease with cirrhosis of the liver and portal hypertension diagnosed approximately 15 years ago Current Visit: Yes Status: Acute Code(s): K76.0 - FATTY (CHANGE OF) LIVER, NOT ELSEWHERE CLASSIFIED SNOMED Code(s): 856405656 (3) Ascites Narrative/Plan: Site is requiring large volume paracentesis. The patient states she is ALLERGIC to most of the diuretics therefore unable to take them. She has been having paracentesis for the last 5 months and recently has been needing it more frequently on a weekly basis. Did not tolerate diuretics on an outpatient basis. Current Visit: Yes Status: Acute Code(s): R18.8 - OTHER ASCITES SNOMED Code(s): 475715137 Plan: 1. Supportive care 2. Primary medicine ordered Lomotil, will discontinue Imodium 3. Stool studies negative to date, stool culture pending 4. Patient is status post large volume paracentesis 5. Will order albumin 25 g 6. Patient may have a low fiber, low sodium diet 7. We will continue to follow with you closely Dr. Jose Maciel I agree with the dictator's note, documented as a scribe by Amara London.
[2020-08-15 16:35] LABS: Glucose,Whole Blood 111 mg/dL (75-99)
[2020-08-15 20:28] LABS: Glucose,Whole Blood 129 mg/dL (75-99)
[2020-08-15] MEDS: MONTELUKAST 10 MG TAB PO SCH (20:52)
[2020-08-15] MEDS ORDERED: APIXABAN 5 MG TAB PO SCH (21:00)
[2020-08-15] MEDS ORDERED: CHOLESTYRAMINE (WITH SUGAR) 4 GM PACKET PO ONE (21:51)
--- NOTE | 2020-08-15 21:57 | P.PN ---
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 Another 2 bands were placed for EGD last week through GI team Other medical problems including atrial fibrillation, asthma, diabetes mellitus, deep venous thrombosis, hyperlipidemia, hypertension, osteoarthritis, pulmonary embolism, . She is a patient of Dr. Uriostegui, also Dr. Jurado her admissions director and she sees black from GI team. She was coming today for doing paracentesis as a scheduled however it was noticed that she has diarrhea for the last couple days like yesterday she had 12 episodes of loose bowel movement, there is no blood in it, no nausea vomiting. Stool looks a greenish, her son has similar diarrhea with a greenish stool of one-day duration and resolved. Also she has abdominal pain but does looks like related to her distended abdomen from ascites. She denies chest pain or dyspnea or headache. At baseline she uses a cane or a walker She denies smoking, alcohol or illicit drugs Vitals are stable. Labs showing hemoglobin 8.5, low lymphocyte at 0.6. INR 1.1, sodium 1:30. Risks of BMP is unremarkable, lactic acid is normal 1.7, liver enzymes elevated, lipase slightly up at 321, troponin is negative less than 0.012 CT of the abdomen and pelvis with contrast: Showing ascites, cirrhosis of the liver 08/15/2020 Patient is a status post paracenteses were large amount of fluid was removed and abdomen was prescribed by GI team, was procedure have abdominal distention and pain are significantly improved. Eliquis is resumed after the procedure Her diarrhea is improving today down from 10-15 yesterday as reported today is 4 times only as per patient. C. diff is negative. Stool culture is pending Hemoglobin number came down from 8.5 to 7.5, however there is evidence of hemodilution, there is a drop WBC and platelet as well. GI team on the case Review of Systems CONSTITUTIONAL: No fever, no malaise, no fatigue. HEENT: No recent visual problems or hearing problems. Denied any sore throat. CARDIOVASCULAR: No orthopnea, PND, no palpitations, no syncope. PULMONARY: No shortness of breath, no cough, no hemoptysis. GASTROINTESTINAL:, no nausea, no vomiting, Normoactive bowel sounds. NEUROLOGICAL: No headaches, no weakness, no numbness. Active Medications Generic Name Dose Route Start Last Admin Trade Name Freq PRN Reason Stop Dose Admin Hydrocodone Bitart/Acetaminophen 1 each 08/15/20 15:00 08/15/20 20:53 Hydrocodone/Apap 5-325mg 1 Each Tab PO 1 each 0700,1200,1600,2100 MELINDA Administration Albuterol Sulfate 2.5 mg 08/14/20 12:52 08/14/20 20:40 Albuterol Nebulized 2.5 Mg/3 Ml INHALATION 2.5 mg RT-Q6H PRN Administration Shortness Of Breath Amlodipine Besylate 2.5 mg 08/14/20 22:00 08/15/20 20:52 Amlodipine 2.5 Mg Tab PO 2.5 mg BID@1000,2200 MELINDA Administration Apixaban 5 mg 08/15/20 21:00 08/15/20 20:52 Apixaban 5 Mg Tab PO 5 mg BID MELINDA Administration Cholecalciferol 25 mcg 08/15/20 09:00 08/15/20 09:29 Cholecalciferol 25 Mcg (1000 Iu) Tablet PO 25 mcg DAILY MELINDA Administration Diphenoxylate HCl/Atropine 1 each 08/14/20 15:59 08/15/20 09:28 Diphenox-Atrop 2.5-0.025 Mg 1 Each Tab PO 1 each DAILY PRN Administration Diarrhea Epinephrine HCl 0.3 mg 08/14/20 12:52 Epinephrine 1 Mg/Ml 1 Ml Amp IM ONCE PRN Anaphylaxis Hydromorphone HCl 0.5 mg 08/14/20 12:31 08/15/20 02:20 Hydromorphone 0.5 Mg/0.5 Ml Syringe IVP 0.5 mg Q3HR PRN Administration Moderate Pain Levothyroxine Sodium 25 mcg 08/15/20 07:00 08/15/20 09:31 Levothyroxine 25 Mcg Tab PO 25 mcg DAILY@0700 [facility] Administration Lisinopril 20 mg 08/15/20 12:00 08/15/20 13:03 Lisinopril 20 Mg Tab PO 20 mg DAILY@1200 [facility] Administration Metoprolol Succinate 25 mg 08/15/20 12:00 08/15/20 13:02 Metoprolol Succinate (Er) 25 Mg Tab.Er.24h PO 25 mg DAILY@1200 [facility] Administration Montelukast Sodium 10 mg 08/14/20 22:00 08/15/20 20:52 Montelukast 10 Mg Tab PO 10 mg HS@2200 [facility] Administration Multivitamins 1 each 08/15/20 07:00 08/15/20 09:29 Multivitamins, Thera 1 Each Tab PO 1 each DAILY@0700 [facility] Administration Naloxone HCl 0.2 mg 08/14/20 12:31 Naloxone 0.4 Mg/Ml 1 Ml Vial IV Q2M PRN Opioid Reversal Oxybutynin Chloride 10 mg 08/15/20 10:00 08/15/20 09:30 Oxybutynin 10 Mg Tab.Er.24 PO 10 mg DAILY@1000 [facility] Administration Pantoprazole Sodium 40 mg 08/15/20 09:00 08/15/20 09:28 Pantoprazole 40 Mg Tablet PO 40 mg DAILY MELINDA Administration Objective - Vital Signs Vital signs: Vital Signs Temp 97.5 F L 08/15/20 20:15 Pulse 75 08/15/20 20:15 Resp 14 08/15/20 20:15 BP 109/49 08/15/20 20:15 Pulse Ox 98 08/15/20 20:15 Intake & Output 08/15/20 08/15/20 08/16/20 06:59 18:59 06:59 Intake Total 600 750 Output Total 2 Balance 598 750 Intake: Intake, IV Titration 600 Amount Sodium Chloride 0.9% 1, 600 000 ml @ 75 mls/hr IV . [id number] [facility] Rx#:[id number] Oral 750 Output: Urine/Stool Mix 2 Other: Voiding Method Bedside Commode Bedside Commode # Voids 1 2 # Bowel Movements 1 1 - Exam GENERAL: The patient is alert and oriented x3, not in any acute distress. Well developed, well nourished. HEENT: Pupils are round and equally reacting to light. EOMI. No scleral icterus. No conjunctival pallor. Normocephalic, atraumatic. No pharyngeal erythema. No thyromegaly. CARDIOVASCULAR: S1 and S2 present. No murmurs, rubs, or gallops. PULMONARY: Chest is clear to auscultation, no wheezing or crackles. -ABDOMEN: Soft, nontender, abdominal distention significantly improved, normoactive bowel sounds. No palpable organomegaly. MUSCULOSKELETAL: No joint swelling or deformity. EXTREMITIES: No cyanosis, clubbing, or pedal edema. NEUROLOGICAL: Gross neurological examination did not reveal any focal deficits. SKIN: No rashes. no petechiae. - Labs CBC & Chem 7: 08/15/20 06:39 08/15/20 06:39 Labs: Abnormal Lab Results - Last 24 Hours (Table) 08/15/20 08/15/20 08/15/20 Range/Units 06:39 06:39 07:35 RBC 2.91 L (3.80-5.40) m/uL Hgb 7.5 L (11.4-16.0) gm/dL Hct 24.9 L (34.0-46.0) % MCHC 30.2 L (31.0-37.0) g/dL RDW 20.3 H (11.5-15.5) % Lymphocytes # 0.6 L (1.0-4.8) k/uL Sodium 132 L (135-145) mmol/L Carbon Dioxide 18.5 L (21.6-31.8) mmol/L BUN 30.0 H (9.0-27.0) mg/dL BUN/Creatinine Ratio 33.33 H (12.00-20.00) Ratio Glucose 115 H (70-110) mg/dL POC Glucose (mg/dL) 120 H (75-99) mg/dL Calcium 8.6 L (8.7-10.3) mg/dL 08/15/20 08/15/20 08/15/20 Range/Units 12:01 16:33 20:17 RBC (3.80-5.40) m/uL Hgb (11.4-16.0) gm/dL Hct (34.0-46.0) % MCHC (31.0-37.0) g/dL RDW (11.5-15.5) % Lymphocytes # (1.0-4.8) k/uL Sodium (135-145) mmol/L Carbon Dioxide (21.6-31.8) mmol/L BUN (9.0-27.0) mg/dL BUN/Creatinine Ratio (12.00-20.00) Ratio Glucose (70-110) mg/dL POC Glucose (mg/dL) 117 H 111 H 129 H (75-99) mg/dL Calcium (8.7-10.3) mg/dL Microbiology - Last 24 Hours (Table) 08/14/20 13:16 Stool Culture - Preliminary Stool Assessment and Plan Assessment: Decompensated 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 Status post paracentesis on 08/15 Acute diarrhea with no evidence for C. diff Esophageal varices Status post esophageal banding 1 week prior to admission hypervolemic hyponatremia Chronic atrial fibrillation Chronic asthma, not an active issue Diabetes mellitus History of deep venous thrombosis/pulmonary embolism Hyperlipidemia Hypertension Plan: This is a pleasant 80 years old female who presents with diarrhea and ascites. Monitor diarrhea and Will check stool culture. Follow-up recommendation by GI team consult . Labs and medication were reviewed.. Continue same treatment. Continue with symptomatic treatment. Resume home medication. Monitor lytes and vitals. DVT and GI prophylaxis. Further recommendations depends on the clinical course of the patient DVT prophylaxis: On Eliquis GI Prophylaxis: Pepcid PT/OT: Pending
[2020-08-16 06:58] LABS: Anisocytosis Slight; Basophils % (A) 1 %; Eosinophils # (A) 0.1 k/uL (0-0.7); Eosinophils % (A) 2 %; HCT 22.8 % (34.0-46.0); Hypochromasia Marked; Lymphocytes # (A) 0.4 k/uL (1.0-4.8); Lymphocytes % (A) 13 %; MCH 24.7 pg (25.0-35.0); MCHC 28.4 g/dL (31.0-37.0); Mean Platelet Volume 8.1; Monocytes # (A) 0.2 k/uL (0-1.0); Monocytes % (A) 6 %; Neutrophils # (A) 2.3 k/uL (1.3-7.7); Platelet Count 202 k/uL (150-450); RBC 2.62 m/uL (3.80-5.40); RDW 19.8 % (11.5-15.5)
[2020-08-16 07:06] LABS: Glucose,Whole Blood 106 mg/dL (75-99)
[2020-08-16 07:42] LABS: HGB 6.5 gm/dL (11.4-16.0)
[2020-08-16] MEDS: HYDROcodone/APAP 5-325MG 1 EACH TAB PO SCH ×4 (07:55→21:10)
[2020-08-16] MEDS: LEVOTHYROXINE 25 MCG TAB PO SCH (07:56)
[2020-08-16] MEDS: PANTOPRAZOLE 40 MG TABLET PO SCH (07:56)
[2020-08-16] MEDS: CHOLECALCIFEROL 25 MCG (1000 IU) TABLET PO SCH (07:56)
[2020-08-16] MEDS: MULTIVITAMINS, THERA 1 EACH TAB PO SCH (07:56)
--- NOTE | 2020-08-16 09:58 | P.PN ---
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 Another 2 bands were placed for EGD last week through GI team Other medical problems including atrial fibrillation, asthma, diabetes mellitus, deep venous thrombosis, hyperlipidemia, hypertension, osteoarthritis, pulmonary embolism, . She is a patient of Dr. 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 She was coming today for doing paracentesis as a scheduled however it was noticed that she has diarrhea for the last couple days like yesterday she had 12 episodes of loose bowel movement, there is no blood in it, no nausea vomiting. Stool looks a greenish, her son has similar diarrhea with a greenish stool of one-day duration and resolved. Also she has abdominal pain but does looks like related to her distended abdomen from ascites. She denies chest pain or dyspnea or headache. At baseline she uses a cane or a walker She denies smoking, alcohol or illicit drugs Vitals are stable. Labs showing hemoglobin 8.5, low lymphocyte at 0.6. INR 1.1, sodium 1:30. Risks of BMP is unremarkable, lactic acid is normal 1.7, liver enzymes elevated, lipase slightly up at 321, troponin is negative less than 0.012 CT of the abdomen and pelvis with contrast: Showing ascites, cirrhosis of the liver 08/15/2020 Patient is a status post paracenteses were large amount of fluid was removed and abdomen was prescribed by GI team, was procedure have abdominal distention and pain are significantly improved. Eliquis is resumed after the procedure Her diarrhea is improving today down from 10-15 yesterday as reported today is 4 times only as per patient. C. diff is negative. Stool culture is pending Hemoglobin number came down from 8.5 to 7.5, however there is evidence of hemodilution, there is a drop WBC and platelet as well. GI team on the case 08/16/2020 Patient got paracentesis yesterday and her abdominal distention improved but not resolved completely. Her diarrhea also is improving as she is having 1 soft bowel movement compared to 10 bouts of watery diarrhea on admission. She denies abdominal pain or dizziness. However she developed abnormal labs with a drop in hemoglobin to 6.5. Eliquis was held, occult blood in stool is ordered as well as abdominal ultrasound. We'll give also 1 unit of blood transfusion and patient agrees to it after risks are explained. WBC is 3.0, hemoglobin 6.5 and a platelet 202. Sugar is controlled Review of Systems CONSTITUTIONAL: No fever, no malaise, no fatigue. HEENT: No recent visual problems or hearing problems. Denied any sore throat. CARDIOVASCULAR: No orthopnea, PND, no palpitations, no syncope. PULMONARY: No shortness of breath, no cough, no hemoptysis. GASTROINTESTINAL:, no nausea, no vomiting, Normoactive bowel sounds. NEUROLOGICAL: No headaches, no weakness, no numbness. Active Medications Generic Name Dose Route Start Last Admin Trade Name Freq PRN Reason Stop Dose Admin Hydrocodone Bitart/Acetaminophen 1 each 08/15/20 15:00 08/16/20 07:55 Hydrocodone/Apap 5-325mg 1 Each Tab PO 1 each 0700,1200,1600,2100 MELINDA Administration Albuterol Sulfate 2.5 mg 08/14/20 12:52 08/14/20 20:40 Albuterol Nebulized 2.5 Mg/3 Ml INHALATION 2.5 mg RT-Q6H PRN Administration Shortness Of Breath Amlodipine Besylate 2.5 mg 08/14/20 22:00 08/15/20 20:52 Amlodipine 2.5 Mg Tab PO 2.5 mg BID@1000,2200 MELINDA Administration Cholecalciferol 25 mcg 08/15/20 09:00 08/16/20 07:56 Cholecalciferol 25 Mcg (1000 Iu) Tablet PO 25 mcg DAILY MELINDA Administration Diphenoxylate HCl/Atropine 1 each 08/14/20 15:59 08/15/20 09:28 Diphenox-Atrop 2.5-0.025 Mg 1 Each Tab PO 1 each DAILY PRN Administration Diarrhea Epinephrine HCl 0.3 mg 08/14/20 12:52 Epinephrine 1 Mg/Ml 1 Ml Amp IM ONCE PRN Anaphylaxis Hydromorphone HCl 0.5 mg 08/14/20 12:31 08/15/20 02:20 Hydromorphone 0.5 Mg/0.5 Ml Syringe IVP 0.5 mg Q3HR PRN Administration Moderate Pain Levothyroxine Sodium 25 mcg 08/15/20 07:00 08/16/20 07:56 Levothyroxine 25 Mcg Tab PO 25 mcg DAILY@0700 [facility] Administration Lisinopril 20 mg 08/15/20 12:00 08/15/20 13:03 Lisinopril 20 Mg Tab PO 20 mg DAILY@1200 [facility] Administration Metoprolol Succinate 25 mg 08/15/20 12:00 08/15/20 13:02 Metoprolol Succinate (Er) 25 Mg Tab.Er.24h PO 25 mg DAILY@1200 [facility] Administration Montelukast Sodium 10 mg 08/14/20 22:00 08/15/20 20:52 Montelukast 10 Mg Tab PO 10 mg HS@2200 [facility] Administration Multivitamins 1 each 08/15/20 07:00 08/16/20 07:56 Multivitamins, Thera 1 Each Tab PO 1 each DAILY@0700 [facility] Administration Naloxone HCl 0.2 mg 08/14/20 12:31 Naloxone 0.4 Mg/Ml 1 Ml Vial IV Q2M PRN Opioid Reversal Non-Formulary Medication 140 mg 08/16/20 18:00 Evolocumab [Kalyn Acosta] SQ Q14D [facility] Oxybutynin Chloride 10 mg 08/15/20 10:00 08/15/20 09:30 Oxybutynin 10 Mg Tab.Er.24 PO 10 mg DAILY@1000 [facility] Administration Pantoprazole Sodium 40 mg 08/15/20 09:00 08/16/20 07:56 Pantoprazole 40 Mg Tablet PO 40 mg DAILY [facility] Administration Objective - Vital Signs Vital signs: Vital Signs Temp 97.8 F 08/16/20 05:00 Pulse 65 08/16/20 05:00 Resp 18 08/16/20 05:00 BP 106/41 08/16/20 05:00 Pulse Ox 93 L 08/16/20 05:00 Intake & Output 08/15/20 08/16/20 08/16/20 18:59 06:59 18:59 Intake Total 750 200 Balance 750 200 Intake: Oral 750 200 Other: Voiding Method Bedside Commode Bedside Commode # Voids 2 2 # Bowel Movements 1 0 - Exam GENERAL: The patient is alert and oriented x3, not in any acute distress. Well developed, well nourished. HEENT: Pupils are round and equally reacting to light. EOMI. No scleral icterus. No conjunctival pallor. Normocephalic, atraumatic. No pharyngeal erythema. No thyromegaly. CARDIOVASCULAR: S1 and S2 present. No murmurs, rubs, or gallops. PULMONARY: Chest is clear to auscultation, no wheezing or crackles. -ABDOMEN: Soft, nontender, abdominal distention significantly improved, normoactive bowel sounds. No palpable organomegaly. MUSCULOSKELETAL: No joint swelling or deformity. EXTREMITIES: No cyanosis, clubbing, or pedal edema. NEUROLOGICAL: Gross neurological examination did not reveal any focal deficits. SKIN: No rashes. no petechiae. - Labs CBC & Chem 7: 08/16/20 06:21 08/15/20 06:39 Labs: Abnormal Lab Results - Last 24 Hours (Table) 08/15/20 08/15/20 08/15/20 Range/Units 06:39 12:01 16:33 WBC (3.8-10.6) k/uL RBC (3.80-5.40) m/uL Hgb (11.4-16.0) gm/dL Hct (34.0-46.0) % MCH (25.0-35.0) pg MCHC (31.0-37.0) g/dL RDW (11.5-15.5) % Lymphocytes # (1.0-4.8) k/uL Sodium 132 L (135-145) mmol/L Carbon Dioxide 18.5 L (21.6-31.8) mmol/L BUN 30.0 H (9.0-27.0) mg/dL BUN/Creatinine Ratio 33.33 H (12.00-20.00) Ratio Glucose 115 H (70-110) mg/dL POC Glucose (mg/dL) 117 H 111 H (75-99) mg/dL Calcium 8.6 L (8.7-10.3) mg/dL 08/15/20 08/16/20 08/16/20 Range/Units 20:17 06:21 07:04 WBC 3.0 L (3.8-10.6) k/uL RBC 2.62 L (3.80-5.40) m/uL Hgb 6.5 L* (11.4-16.0) gm/dL Hct 22.8 L (34.0-46.0) % MCH 24.7 L (25.0-35.0) pg MCHC 28.4 L (31.0-37.0) g/dL RDW 19.8 H (11.5-15.5) % Lymphocytes # 0.4 L (1.0-4.8) k/uL Sodium (135-145) mmol/L Carbon Dioxide (21.6-31.8) mmol/L BUN (9.0-27.0) mg/dL BUN/Creatinine Ratio (12.00-20.00) Ratio Glucose (70-110) mg/dL POC Glucose (mg/dL) 129 H 106 H (75-99) mg/dL Calcium (8.7-10.3) mg/dL Assessment and Plan Assessment: Decompensated 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 Status post paracentesis on 08/15 Acute diarrhea with no evidence for C. diff, improving Anemia with drop in hemoglobin to 6.5 Esophageal varices Status post esophageal banding 1 week prior to admission hypervolemic hyponatremia Chronic atrial fibrillation Chronic asthma, not an active issue Diabetes mellitus History of deep venous thrombosis/pulmonary embolism Hyperlipidemia Hypertension Plan: This is a pleasant 80 years old female who presents with diarrhea and ascites. Monitor diarrhea and Will check stool culture. Follow-up recommendation by GI team consult . Hold Eliquis, give 1 unit of blood. Check abdominal ultrasound and occult blood stool Labs and medication were reviewed.. Continue same treatment. Continue with symptomatic treatment. Resume home medication. Monitor lytes and vitals. DVT and GI prophylaxis. Further recommendations depends on the clinical course of the patient DVT prophylaxis: On Eliquis, held GI Prophylaxis: ppi PT/OT: Pending
[2020-08-16] MEDS: amLODIPine 2.5 MG TAB PO SCH ×2 (11:08→23:05)
[2020-08-16] MEDS: OXYBUTYNIN 10 MG TAB.ER.24 PO SCH (11:09)
[2020-08-16 11:22] LABS: Glucose,Whole Blood 120 mg/dL (75-99)
[2020-08-16] MEDS: lisinopriL 20 MG TAB PO SCH (11:26)
[2020-08-16] MEDS: METOPROLOL SUCCINATE (ER) 25 MG TAB.ER.24H PO SCH (11:27)
--- NOTE | 2020-08-16 14:49 | PN ---
PROGRESS NOTE DATE OF DICTATION: August 16, 2020 Patient is a 80-year-old pleasant white female with history of nonalcoholic fatty liver disease with cirrhosis of the liver and ascites requiring frequent paracentesis. She was having diarrhea and hence admitted to the hospital. The diarrhea seems to be improving. She had stool studies for C difficile toxin, it was negative. Stool lactoferrin was negative. She was started on Lomotil 1-2 tablets every 6 hours as needed yesterday and her diarrhea has significantly improved. She only had one bowel movement today. No rectal bleeding or melena. She denies any abdominal pain. PHYSICAL EXAMINATION: Vital signs are stable. Blood pressure 92/53, pulse rate 80, temperature 98.1. HEENT: Examination unremarkable. Conjunctivae pink. Sclerae anicteric. Oral cavity no lesions. NECK: No JVD or lymph node enlargement. CHEST: Was clear to auscultation. HEART: Regular rate and rhythm. ABDOMEN: Soft. Bowel sounds are positive. No organomegaly. Mild ascites noted. EXTREMITIES: No pedal edema. SKIN: No rashes. NEURO: She is alert and oriented x3. No focal deficits. LABS: Labs done from today WBC 3.2, hemoglobin 6.8, platelets 202. IMPRESSION: 1. Acute onset of diarrhea for the last 3 days duration. Clostridium difficile toxin negative. Stool cultures still pending. Stool lactoferrin negative. The patient started on empiric Lomotil and her symptoms are significantly improving. Most likely she had an infectious colitis that is gradually resolving. 2. Ascites requiring frequent paracenteses. Last one was done 2 days ago. 3. Anemia with clinically no active bleeding, status post EGD with variceal ligation by Dr. Menon 2 weeks ago. Most likely anemia is related to chronic liver disease with cirrhosis of the liver and portal hypertension. RECOMMENDATION: 1. Agree with one unit of PRBC transfusion. 2. The patient is scheduled for ultrasound of the abdomen today to evaluate for ascites. 3. Continue on a low-salt diet. 4. Lomotil as needed for the diarrhea. 5. We will follow with you closely. Thank you for this consultation. MMODL / IJN: [id number] /
--- NOTE | 2020-08-16 15:44 | US ---
EXAMINATION TYPE: US abdomen limited DATE OF EXAM: 08/16/2020 COMPARISON: CT 08/14/2020, US 03/14/2020 CLINICAL HISTORY: drop on hemoglobin after paracentesis. Very difficult exam due to ascites EXAM MEASUREMENTS: Liver Length: 16.0 cm Gallbladder Wall: 0.6 cm CBD: 0.5 cm Right Kidney: 10.7 x 4.2 x 5.2 cm Pancreas: Obscured by bowel gas Liver: Lobulated contour Gallbladder: Thickened wall Evidence for sonographic Sahni's sign: No CBD: wnl as visualized Right Kidney: No hydronephrosis or masses seen Moderate amount of ascites visualized IMPRESSION: 1. Cirrhosis 2. Ascites. 3. Suspicious echogenic fluid to suggest acute hemorrhage is not identified.
[2020-08-16 16:18] LABS: African American GFR (CKD) 81.3 (60.0-200.0); Anion Gap 7.2 mmol/L (4.00-12.00); BUN/Creat Ratio 32.5 Ratio (12.00-20.00); Calcium 8.2 mg/dL (8.7-10.3); Carbon Dioxide 17.8 mmol/L (21.6-31.8); Non-African American GFR(CKD) 70.1 (60.0-200.0); Potassium 4.2 mmol/L (3.5-5.5)
[2020-08-16 17:25] LABS: Glucose,Whole Blood 132 mg/dL (75-99)
[2020-08-16] MEDS ORDERED: NON FORMULARY DRUG (Evolocumab [Repatha Sureclick] 140 MG/ML Pen.Injctr) SQ SCH (18:00)
[2020-08-16] MEDS ORDERED: PATIENT'S OWN (Evolocumab [Repatha Sureclick] 140 MG/ML Pen.Injctr) SQ SCH (21:00)
[2020-08-16] MEDS: MONTELUKAST 10 MG TAB PO SCH (21:09)
[2020-08-16 22:40] LABS: Glucose,Whole Blood 114 mg/dL (75-99)
[2020-08-17] MEDS: HYDROcodone/APAP 5-325MG 1 EACH TAB PO SCH ×4 (07:19→21:52)
[2020-08-17] MEDS: PANTOPRAZOLE 40 MG TABLET PO SCH (07:20)
[2020-08-17] MEDS: LEVOTHYROXINE 25 MCG TAB PO SCH (07:20)
[2020-08-17] MEDS: MULTIVITAMINS, THERA 1 EACH TAB PO SCH (07:20)
[2020-08-17] MEDS: CHOLECALCIFEROL 25 MCG (1000 IU) TABLET PO SCH (07:20)
[2020-08-17 07:33] LABS: Glucose,Whole Blood 91 mg/dL (75-99)
[2020-08-17 09:14] LABS: Anisocytosis Slight; Basophils % (A) 1 %; Eosinophils # (A) 0.1 k/uL (0-0.7); Eosinophils % (A) 2 %; HCT 33.1 % (34.0-46.0); Hypochromasia Marked; Lymphocytes # (A) 0.5 k/uL (1.0-4.8); Lymphocytes % (A) 11 %; MCH 25.1 pg (25.0-35.0); MCHC 29.5 g/dL (31.0-37.0); MCV 85.1 fL (80.0-100.0); Monocytes # (A) 0.3 k/uL (0-1.0); Monocytes % (A) 5 %; Neutrophils # (A) 3.7 k/uL (1.3-7.7); Neutrophils % (A) 78 %; Platelet Count 273 k/uL (150-450); Poikilocytosis Slight; RBC 3.88 m/uL (3.80-5.40); WBC 4.7 k/uL (3.8-10.6)
[2020-08-17 09:32] LABS: HGB 9.7 gm/dL (11.4-16.0)
[2020-08-17] MEDS ORDERED: LACTULOSE 20 GM/30 ML CUP PO ONE (10:30)
[2020-08-17] MEDS: amLODIPine 2.5 MG TAB PO SCH ×2 (10:48→21:55)
[2020-08-17] MEDS: OXYBUTYNIN 10 MG TAB.ER.24 PO SCH (10:49)
[2020-08-17 11:24] LABS: Glucose,Whole Blood 117 mg/dL (75-99)
[2020-08-17] MEDS: lisinopriL 20 MG TAB PO SCH (12:12)
[2020-08-17] MEDS: METOPROLOL SUCCINATE (ER) 25 MG TAB.ER.24H PO SCH (12:12)
--- NOTE | 2020-08-17 13:44 | P.PN ---
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 Another 2 bands were placed for EGD last week through GI team Other medical problems including atrial fibrillation, asthma, diabetes mellitus, deep venous thrombosis, hyperlipidemia, hypertension, osteoarthritis, pulmonary embolism, . She is a patient of Dr. 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 She was coming today for doing paracentesis as a scheduled however it was noticed that she has diarrhea for the last couple days like yesterday she had 12 episodes of loose bowel movement, there is no blood in it, no nausea vomiting. Stool looks a greenish, her son has similar diarrhea with a greenish stool of one-day duration and resolved. Also she has abdominal pain but does looks like related to her distended abdomen from ascites. She denies chest pain or dyspnea or headache. At baseline she uses a cane or a walker She denies smoking, alcohol or illicit drugs Vitals are stable. Labs showing hemoglobin 8.5, low lymphocyte at 0.6. INR 1.1, sodium 1:30. Risks of BMP is unremarkable, lactic acid is normal 1.7, liver enzymes elevated, lipase slightly up at 321, troponin is negative less than 0.012 CT of the abdomen and pelvis with contrast: Showing ascites, cirrhosis of the liver 08/15/2020 Patient is a status post paracenteses were large amount of fluid was removed and abdomen was prescribed by GI team, was procedure have abdominal distention and pain are significantly improved. Eliquis is resumed after the procedure Her diarrhea is improving today down from 10-15 yesterday as reported today is 4 times only as per patient. C. diff is negative. Stool culture is pending Hemoglobin number came down from 8.5 to 7.5, however there is evidence of hemodilution, there is a drop WBC and platelet as well. GI team on the case 08/16/2020 Patient got paracentesis yesterday and her abdominal distention improved but not resolved completely. Her diarrhea also is improving as she is having 1 soft bowel movement compared to 10 bouts of watery diarrhea on admission. She denies abdominal pain or dizziness. However she developed abnormal labs with a drop in hemoglobin to 6.5. Eliquis was held, occult blood in stool is ordered as well as abdominal ultrasound. We'll give also 1 unit of blood transfusion and patient agrees to it after risks are explained. WBC is 3.0, hemoglobin 6.5 and a platelet 202. Sugar is controlled 08/17/2020 Patient sitting on chair comfortable, no distress, no abdominal pain, her diarrhea has resolved and actually she feels constipated and she wants something to move her bowel. Tolerating diet well with no difficulty. 89/53 and 84/55, her blood pressure medication were hold and 1 dose of of vomiting IV is given She got one unit of blood yesterday, her hemoglobin went up to 9.7. Her sugar is controlled. Yesterday abdominal ultrasound showing no hemorrhage. Resume Eliquis and check hemoglobin tomorrow, if she remains stable then may consider for discharge if she remains a stable and improved She has bilateral pitting leg edema however she refuses to take diuretics because of her ALLERGY including no Lasix. Review of Systems CONSTITUTIONAL: No fever, no malaise, no fatigue. HEENT: No recent visual problems or hearing problems. Denied any sore throat. CARDIOVASCULAR: No orthopnea, PND, no palpitations, no syncope. PULMONARY: No shortness of breath, no cough, no hemoptysis. GASTROINTESTINAL:, no nausea, no vomiting, Normoactive bowel sounds. NEUROLOGICAL: No headaches, no weakness, no numbness. Active Medications Generic Name Dose Route Start Last Admin Trade Name Freq PRN Reason Stop Dose Admin Hydrocodone Bitart/Acetaminophen 1 each 08/15/20 15:00 08/17/20 13:31 Hydrocodone/Apap 5-325mg 1 Each Tab PO 1 each 0700,1200,1600,2100 MELINDA Administration Albuterol Sulfate 2.5 mg 08/14/20 12:52 08/14/20 20:40 Albuterol Nebulized 2.5 Mg/3 Ml INHALATION 2.5 mg RT-Q6H PRN Administration Shortness Of Breath Amlodipine Besylate 2.5 mg 08/14/20 22:00 08/17/20 10:48 Amlodipine 2.5 Mg Tab PO Not Given BID@1000,2200 MELINDA Apixaban 5 mg 08/17/20 13:00 Apixaban 5 Mg Tab PO BID MELINDA Cholecalciferol 25 mcg 08/15/20 09:00 08/17/20 07:20 Cholecalciferol 25 Mcg (1000 Iu) Tablet PO 25 mcg DAILY MELINDA Administration Diphenoxylate HCl/Atropine 1 each 08/14/20 15:59 08/15/20 09:28 Diphenox-Atrop 2.5-0.025 Mg 1 Each Tab PO 1 each DAILY PRN Administration Diarrhea Epinephrine HCl 0.3 mg 08/14/20 12:52 Epinephrine 1 Mg/Ml 1 Ml Amp IM ONCE PRN Anaphylaxis Hydromorphone HCl 0.5 mg 08/14/20 12:31 08/15/20 02:20 Hydromorphone 0.5 Mg/0.5 Ml Syringe IVP 0.5 mg Q3HR PRN Administration Moderate Pain Albumin Human 50 ml/ IV 50 mls @ 50 mls/hr 08/17/20 13:30 Solution IVPB 08/17/20 15:29 Q1H [facility] Levothyroxine Sodium 25 mcg 08/15/20 07:00 08/17/20 07:20 Levothyroxine 25 Mcg Tab PO 25 mcg DAILY@0700 [facility] Administration Lisinopril 20 mg 08/15/20 12:00 08/17/20 12:12 Lisinopril 20 Mg Tab PO Not Given DAILY@1200 [facility] Metoprolol Succinate 25 mg 08/15/20 12:00 08/17/20 12:12 Metoprolol Succinate (Er) 25 Mg Tab.Er.24h PO Not Given DAILY@1200 [facility] Montelukast Sodium 10 mg 08/14/20 22:00 08/16/20 21:09 Montelukast 10 Mg Tab PO 10 mg HS@2200 [facility] Administration Multivitamins 1 each 08/15/20 07:00 08/17/20 07:20 Multivitamins, Thera 1 Each Tab PO 1 each DAILY@0700 [facility] Administration Naloxone HCl 0.2 mg 08/14/20 12:31 Naloxone 0.4 Mg/Ml 1 Ml Vial IV Q2M PRN Opioid Reversal Patient's Own ( 140 mg 08/16/20 21:00 08/16/20 21:10 Evolocumab [Repatha SQ 140 mg [employer]] 140 Mg/Ml Q14D [facility] Administration Pen.Injctr) Oxybutynin Chloride 10 mg 08/15/20 10:00 08/17/20 10:49 Oxybutynin 10 Mg Tab.Er.24 PO 10 mg DAILY@1000 MELINDA Administration Pantoprazole Sodium 40 mg 08/15/20 09:00 08/17/20 07:20 Pantoprazole 40 Mg Tablet PO 40 mg DAILY MELINDA Administration Objective - Vital Signs Vital signs: Vital Signs Temp 98.2 F 08/17/20 11:33 Pulse 75 08/17/20 13:16 Resp 16 08/17/20 11:33 BP 108/61 08/17/20 13:16 Pulse Ox 99 08/17/20 11:33 Intake & Output 08/16/20 08/17/20 08/17/20 18:59 06:59 18:59 Intake Total 2240 100 360 Balance 2240 100 360 Intake: Oral 1930 100 360 Blood Product 310 Rc As-1 Unit 310 [id number] Other: Voiding Method Bedside Commode Toilet Toilet # Voids 3 2 2 - Exam GENERAL: The patient is alert and oriented x3, not in any acute distress. Well developed, well nourished. HEENT: Pupils are round and equally reacting to light. EOMI. No scleral icterus. No conjunctival pallor. Normocephalic, atraumatic. No pharyngeal erythema. No thyromegaly. CARDIOVASCULAR: S1 and S2 present. No murmurs, rubs, or gallops. PULMONARY: Chest is clear to auscultation, no wheezing or crackles. -ABDOMEN: Soft, nontender, abdominal distention significantly improved, normoactive bowel sounds. No palpable organomegaly. MUSCULOSKELETAL: No joint swelling or deformity. EXTREMITIES: No cyanosis, clubbing, or pedal edema. NEUROLOGICAL: Gross neurological examination did not reveal any focal deficits. SKIN: No rashes. no petechiae. - Labs CBC & Chem 7: 08/17/20 08:33 08/16/20 06:21 Labs: Abnormal Lab Results - Last 24 Hours (Table) 08/16/20 08/16/20 08/16/20 Range/Units 06:21 08:41 17:24 Hgb (11.4-16.0) gm/dL Hct (34.0-46.0) % MCHC (31.0-37.0) g/dL RDW (11.5-15.5) % Lymphocytes # (1.0-4.8) k/uL Sodium 131 L (135-145) mmol/L Carbon Dioxide 17.8 L (21.6-31.8) mmol/L BUN/Creatinine Ratio 32.50 H (12.00-20.00) Ratio POC Glucose (mg/dL) 132 H (75-99) mg/dL Calcium 8.2 L (8.7-10.3) mg/dL Crossmatch See Detail 08/16/20 08/17/20 08/17/20 Range/Units 22:38 08:33 11:13 Hgb 9.7 L D (11.4-16.0) gm/dL Hct 33.1 L (34.0-46.0) % MCHC 29.5 L (31.0-37.0) g/dL RDW 19.0 H (11.5-15.5) % Lymphocytes # 0.5 L (1.0-4.8) k/uL Sodium (135-145) mmol/L Carbon Dioxide (21.6-31.8) mmol/L BUN/Creatinine Ratio (12.00-20.00) Ratio POC Glucose (mg/dL) 114 H 117 H (75-99) mg/dL Calcium (8.7-10.3) mg/dL Crossmatch Microbiology - Last 24 Hours (Table) 08/14/20 13:16 Stool Culture - Preliminary Stool Assessment and Plan Assessment: Decompensated 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 Status post paracentesis on 08/15 Acute diarrhea with no evidence for C. diff, improving Anemia with drop in hemoglobin to 6.5 Esophageal varices Status post esophageal banding 1 week prior to admission hypervolemic hyponatremia Chronic atrial fibrillation Chronic asthma, not an active issue Diabetes mellitus History of deep venous thrombosis/pulmonary embolism Hyperlipidemia Hypertension Plan: This is a pleasant 80 years old female who presents with diarrhea and ascites. Monitor diarrhea and Will check stool culture. Follow-up recommendation by GI team consult . Labs and medication were reviewed.. Continue same treatment. Continue with symptomatic treatment. Resume home medication. Monitor lytes and vitals. DVT and GI prophylaxis. Further recommendations depends on the clinical course of the patient DVT prophylaxis: On Eliquis GI Prophylaxis: ppi PT/OT: Pending Resume Eliquis and check hemoglobin tomorrow, if she remains stable then may consider for discharge if she remains a stable and improved
[2020-08-17] MEDS: ALBUMIN HUMAN 25% 50 ML in EMPTY BAG 1 BAG IVPB SCH ×2 (14:07→14:51)
[2020-08-17] MEDS: APIXABAN 5 MG TAB PO SCH ×2 (14:57→21:51)
--- NOTE | 2020-08-17 15:04 | PN ---
PROGRESS NOTE DATE OF DICTATION: 08/17/2020 The patient is a 80-year-old pleasant white female admitted to the hospital with ascites for which she underwent paracentesis 3 days ago. She underwent ultrasound of the abdomen done yesterday that showed moderate amount of ascites, but otherwise it was unremarkable. She had severe diarrhea for the last 2 days and stool studies for C difficile toxin was negative. Today she had one solid bowel movement daily. She is taking Lomotil as needed. Overall she is feeling better. Yesterday she had a hemoglobin of 6.8 requiring a unit of PRBC transfusion and repeat hemoglobin today is 8.5 g/dL. She denies any abdominal pain. No nausea, no vomiting. Still continues to have lower extremity swelling. PHYSICAL EXAMINATION: She appears comfortable, no apparent distress. Vital signs are stable. Blood pressure is 108/61, pulse rate 75, temperature 98.2. HEENT EXAMINATION: Unremarkable. Conjunctivae pink. Sclerae anicteric. Oral cavity no lesions. NECK: No JVD or lymph node enlargement. CHEST: Was clear to auscultation. HEART: Regular rate and rhythm. ABDOMEN: Soft. Bowel sounds are positive. Mild ascites noted. EXTREMITIES: 2+ pedal edema. SKIN: No rashes. NEURO: She is alert and oriented x3. No focal deficits. LABS: The labs from today show WBC of 4.7, hemoglobin 9.7, platelets 273. BUN and creatinine are 26 and 0.8 respectively. IMPRESSION: 1. Ascites secondary to cirrhosis of the liver and portal hypertension. Patient has been allergic to Lasix and HYDROCHLOROTHIAZIDE in the past and hence she has not been on diuretics and requiring paracentesis almost on a weekly basis for the last one month. She is status post large-volume paracentesis 3 days ago and 6 L of fluid was removed. She is currently receiving IV albumin because of persistent hypotension. 2. Anemia secondary to anemia of chronic disease, status post one unit of PRBC transfusion yesterday. She is doing well. 3. Acute diarrhea, resolved. 4. History of fatty liver disease with cirrhosis of the liver. 5. History of esophageal varices, status post esophageal variceal ligation with EGD by Dr. Menon 2 weeks ago. RECOMMENDATIONS: I had a lengthy discussion with the patient regarding management for ascites. At this time, we will start her on low dose of spironolactone at 50 mg daily and if she is tolerating well, we can add Lasix 20 mg daily tomorrow morning. I believe patient stated that with Lasix she has stomach cramps and never had any acute allergic reaction. She will continue with a low-salt diet for now. Repeat labs in the morning and if she is stable, she can be discharged home tomorrow with an outpatient followup in a week. Thank you for this consultation. ROBERT / IJN: [id number] /
[2020-08-17] MEDS: SPIRONOLACTONE 25 MG TAB PO SCH ×3 (16:09→21:54)
[2020-08-17 16:21] LABS: African American GFR (CKD) 70.5 (60.0-200.0); Anion Gap 6.6 mmol/L (4.00-12.00); BUN/Creat Ratio 27.78 Ratio (12.00-20.00); Calcium 8.4 mg/dL (8.7-10.3); Carbon Dioxide 20.4 mmol/L (21.6-31.8); Non-African American GFR(CKD) 60.8 (60.0-200.0); Potassium 5.1 mmol/L (3.5-5.5)
[2020-08-17 16:55] LABS: Glucose,Whole Blood 115 mg/dL (75-99)
[2020-08-17 21:51] LABS: Glucose,Whole Blood 127 mg/dL (75-99)
[2020-08-17] MEDS: MONTELUKAST 10 MG TAB PO SCH (21:53)
[2020-08-18] MEDS: APIXABAN 5 MG TAB PO SCH ×3 (02:21→21:09)
[2020-08-18] MEDS: HYDROcodone/APAP 5-325MG 1 EACH TAB PO SCH ×4 (07:17→21:09)
[2020-08-18] MEDS: CHOLECALCIFEROL 25 MCG (1000 IU) TABLET PO SCH (07:19)
[2020-08-18] MEDS: LEVOTHYROXINE 25 MCG TAB PO SCH (07:19)
[2020-08-18] MEDS: SPIRONOLACTONE 25 MG TAB PO SCH (07:22)
[2020-08-18] MEDS: PANTOPRAZOLE 40 MG TABLET PO SCH (07:22)
[2020-08-18] MEDS: MULTIVITAMINS, THERA 1 EACH TAB PO SCH (07:22)
[2020-08-18 07:38] LABS: Anisocytosis Slight; Basophils % (A) 1 %; Eosinophils # (A) 0.1 k/uL (0-0.7); Eosinophils % (A) 3 %; HCT 28.4 % (34.0-46.0); HGB 8.9 gm/dL (11.4-16.0); Hypochromasia Marked; Lymphocytes # (A) 0.6 k/uL (1.0-4.8); Lymphocytes % (A) 14 %; MCH 26.3 pg (25.0-35.0); MCHC 31.3 g/dL (31.0-37.0); Mean Platelet Volume 8.3; Microcytosis Slight; Monocytes # (A) 0.3 k/uL (0-1.0); Monocytes % (A) 7 %; Neutrophils % (A) 74 %; Platelet Count 202 k/uL (150-450); Poikilocytosis Slight; RBC 3.38 m/uL (3.80-5.40); RDW 19.1 % (11.5-15.5); WBC 4.1 k/uL (3.8-10.6)
[2020-08-18 07:42] LABS: Glucose,Whole Blood 86 mg/dL (75-99)
[2020-08-18] MEDS: FUROSEMIDE 20 MG TAB PO SCH (09:59)
[2020-08-18] MEDS: OXYBUTYNIN 10 MG TAB.ER.24 PO SCH (10:01)
--- NOTE | 2020-08-18 10:17 | P.PN ---
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 Another 2 bands were placed for EGD last week through GI team Other medical problems including atrial fibrillation, asthma, diabetes mellitus, deep venous thrombosis, hyperlipidemia, hypertension, osteoarthritis, pulmonary embolism, . She is a patient of Dr. 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 She was coming today for doing paracentesis as a scheduled however it was noticed that she has diarrhea for the last couple days like yesterday she had 12 episodes of loose bowel movement, there is no blood in it, no nausea vomiting. Stool looks a greenish, her son has similar diarrhea with a greenish stool of one-day duration and resolved. Also she has abdominal pain but does looks like related to her distended abdomen from ascites. She denies chest pain or dyspnea or headache. At baseline she uses a cane or a walker She denies smoking, alcohol or illicit drugs Vitals are stable. Labs showing hemoglobin 8.5, low lymphocyte at 0.6. INR 1.1, sodium 1:30. Risks of BMP is unremarkable, lactic acid is normal 1.7, liver enzymes elevated, lipase slightly up at 321, troponin is negative less than 0.012 CT of the abdomen and pelvis with contrast: Showing ascites, cirrhosis of the liver 08/15/2020 Patient is a status post paracenteses were large amount of fluid was removed and abdomen was prescribed by GI team, was procedure have abdominal distention and pain are significantly improved. Eliquis is resumed after the procedure Her diarrhea is improving today down from 10-15 yesterday as reported today is 4 times only as per patient. C. diff is negative. Stool culture is pending Hemoglobin number came down from 8.5 to 7.5, however there is evidence of hemodilution, there is a drop WBC and platelet as well. GI team on the case 08/16/2020 Patient got paracentesis yesterday and her abdominal distention improved but not resolved completely. Her diarrhea also is improving as she is having 1 soft bowel movement compared to 10 bouts of watery diarrhea on admission. She denies abdominal pain or dizziness. However she developed abnormal labs with a drop in hemoglobin to 6.5. Eliquis was held, occult blood in stool is ordered as well as abdominal ultrasound. We'll give also 1 unit of blood transfusion and patient agrees to it after risks are explained. WBC is 3.0, hemoglobin 6.5 and a platelet 202. Sugar is controlled 08/17/2020 Patient sitting on chair comfortable, no distress, no abdominal pain, her diarrhea has resolved and actually she feels constipated and she wants something to move her bowel. Tolerating diet well with no difficulty. 89/53 and 84/55, her blood pressure medication were hold and 1 dose of of vomiting IV is given She got one unit of blood yesterday, her hemoglobin went up to 9.7. Her sugar is controlled. Yesterday abdominal ultrasound showing no hemorrhage. Resume Eliquis and check hemoglobin tomorrow, if she remains stable then may consider for discharge if she remains a stable and improved She has bilateral pitting leg edema however she refuses to take diuretics because of her ALLERGY including no Lasix. 08/18/2020 Patient is awake and alert, she is sitting at bedside, she does not have significant abdominal pain which is better today. She is eating well. She has regular bowel movements. Her blood pressure is stable after started on Aldactone 50 mg yesterday, GI team are planning to it small dose of Lasix today. Patient already feels better that her Aldactone make her lose a lot of fluid and she is happy about that. I told her we stopped Norvasc and lower the dose of metoprolol for better blood pressure control and to goto diuretics. Currently her blood pressure is stable at 104/63. Yesterday she was started on Eliquis for her history of atrial fibrillation, her hemoglobin dropped slightly 9.7 down to 8.9. Because of this it was recommended to keep monitoring her hemoglobin for at least another 24 hours multiple check her hemoglobin tomorrow besides GI team will evaluate the patient today for his findings. Patient is telling me that she has an appointment with A fortino from GI on 08/27/20. Also she is planning to follow-up with Dr. Uriostegui upon discharge Objective - Vital Signs Vital signs: Vital Signs Temp 97.5 F L 08/18/20 05:00 Pulse 70 08/18/20 05:00 Resp 16 08/18/20 05:00 BP 104/63 08/18/20 05:00 Pulse Ox 100 08/18/20 05:00 Intake & Output 08/17/20 08/18/20 08/18/20 18:59 06:59 18:59 Intake Total 1680 280 Balance 1680 280 Intake: Intake, IV Titration 100 Amount Albumin Human 25% 50 ml 100 In Empty Bag 1 bag @ 50 mls/hr IVPB Q1H [facility] Rx#: [id number] Oral 1580 280 Other: Voiding Method Toilet Toilet Toilet # Voids 5 3 1 - Exam GENERAL: The patient is alert and oriented x3, not in any acute distress. Well developed, well nourished. HEENT: Pupils are round and equally reacting to light. EOMI. No scleral icterus. No conjunctival pallor. Normocephalic, atraumatic. No pharyngeal erythema. No thyromegaly. CARDIOVASCULAR: S1 and S2 present. No murmurs, rubs, or gallops. PULMONARY: Chest is clear to auscultation, no wheezing or crackles. -ABDOMEN: Soft, nontender, abdominal distention significantly improved, normoactive bowel sounds. No palpable organomegaly. MUSCULOSKELETAL: No joint swelling or deformity. EXTREMITIES: No cyanosis, clubbing, or pedal edema. NEUROLOGICAL: Gross neurological examination did not reveal any focal deficits. SKIN: No rashes. no petechiae. - Labs CBC & Chem 7: 08/18/20 06:54 08/17/20 08:33 Labs: Abnormal Lab Results - Last 24 Hours (Table) 08/17/20 08/17/20 08/17/20 Range/Units 08:33 11:13 16:52 RBC (3.80-5.40) m/uL Hgb (11.4-16.0) gm/dL Hct (34.0-46.0) % RDW (11.5-15.5) % Lymphocytes # (1.0-4.8) k/uL Sodium 132 L (135-145) mmol/L Carbon Dioxide 20.4 L (21.6-31.8) mmol/L BUN/Creatinine Ratio 27.78 H (12.00-20.00) Ratio Glucose 146 H (70-110) mg/dL POC Glucose (mg/dL) 117 H 115 H (75-99) mg/dL Calcium 8.4 L (8.7-10.3) mg/dL Stool Occult Blood (Negative) 08/17/20 08/17/20 08/18/20 Range/Units 21:15 21:32 06:54 RBC 3.38 L (3.80-5.40) m/uL Hgb 8.9 L (11.4-16.0) gm/dL Hct 28.4 L (34.0-46.0) % RDW 19.1 H (11.5-15.5) % Lymphocytes # 0.6 L (1.0-4.8) k/uL Sodium (135-145) mmol/L Carbon Dioxide (21.6-31.8) mmol/L BUN/Creatinine Ratio (12.00-20.00) Ratio Glucose (70-110) mg/dL POC Glucose (mg/dL) 127 H (75-99) mg/dL Calcium (8.7-10.3) mg/dL Stool Occult Blood Positive H (Negative) Microbiology - Last 24 Hours (Table) 08/14/20 13:16 Stool Culture - Final Stool Assessment and Plan Assessment: Decompensated 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 Status post paracentesis on 08/15 Acute diarrhea with no evidence for C. diff, improving Anemia with drop in hemoglobin to 6.5 Esophageal varices Status post esophageal banding 1 week prior to admission hypervolemic hyponatremia Chronic atrial fibrillation Chronic asthma, not an active issue Diabetes mellitus History of deep venous thrombosis/pulmonary embolism Hyperlipidemia Hypertension Plan: This is a pleasant 80 years old female who presents with diarrhea and ascites. Monitor diarrhea and Will check stool culture. Follow-up recommendation by GI team consult . Keep monitoring hemoglobin and blood pressure Labs and medication were reviewed.. Continue same treatment. Continue with symptomatic treatment. Resume home medication. Monitor lytes and vitals. DVT and GI prophylaxis. Further recommendations depends on the clinical course of the patient DVT prophylaxis: On Eliquis GI Prophylaxis: ppi PT/OT: Pending Resume Eliquis and check hemoglobin tomorrow, if she remains stable then may consider for discharge if she remains a stable and improved
--- NOTE | 2020-08-18 10:27 | PN ---
PROGRESS NOTE DATE OF SERVICE: 08/18/2020 Patient is a 80-year-old pleasant white female with fatty liver disease resulting in cirrhosis of the liver, admitted to the hospital with ascites and anemia. She received 2 units of PRBC transfusion, last hemoglobin is 8.9 g/dL. She was started on Aldactone 50 mg daily yesterday and she is feeling much better. She has increased diuresis. She reports no abdominal pain. No nausea, no vomiting. No rectal bleeding or melena. PHYSICAL EXAMINATION: Appears comfortable, no apparent distress. VITAL SIGNS: Stable. Blood pressure 104/64, pulse 70, temperature 97.5. HEENT: Examination unremarkable. Conjunctivae are pink. Sclerae anicteric. Oral cavity no lesions. NECK: No JVD. No lymph node enlargement. CHEST: Clear auscultation. HEART: Regular rate and rhythm. ABDOMEN: Soft, it was slightly distended. EXTREMITIES: 1+ pedal edema. SKIN: No rashes. NEUROLOGIC: Alert and oriented x3. No focal deficits. LABS: WBC 4.1, hemoglobin 8.9, platelets normal. Basic metabolic panel was not done today. IMPRESSION: 1. Ascites secondary to portal hypertension and cirrhosis of the liver. She is requiring large-volume paracentesis almost on a weekly basis. She is allergic to multiple diuretics. She was started on Aldactone 50 mg p.o. yesterday and she is doing well. Today we will start her on Lasix 20 mg daily and see how she tolerates. 2. Anemia with no active bleeding. Occult blood was positive, status post EGD with variceal ligation by Dr. Menon 2 weeks ago, status post one unit of PRBC transfusion and hemoglobin is stable at 8.9. Clinically no active bleeding. 3. History of hypertension. 4. History of hyperlipidemia. RECOMMENDATIONS: 1. Start Lasix 20 mg daily. 2. Continue Aldactone 50 mg daily. 3. Low-salt diet. 4. Monitor CBC daily. 5. No plans for any endoscopic intervention. 6. We will follow with you closely. Thank you for this consultation. MMODL / DAVIONN: [id number] /
[2020-08-18] MEDS: METOPROLOL SUCCINATE (ER) 25 MG TAB.ER.24H PO SCH (11:57)
[2020-08-18] MEDS: lisinopriL 20 MG TAB PO SCH (11:57)
[2020-08-18 12:29] LABS: Glucose,Whole Blood 114 mg/dL (75-99)
[2020-08-18 17:10] LABS: Glucose,Whole Blood 112 mg/dL (75-99)
[2020-08-18] MEDS: MONTELUKAST 10 MG TAB PO SCH (21:09)
[2020-08-18 21:34] VITALS: RESP 16
[2020-08-18 21:36] LABS: Glucose,Whole Blood 128 mg/dL (75-99)
[2020-08-19 06:29] LABS: Anisocytosis Slight; Basophils % (A) 0 %; Eosinophils # (A) 0.1 k/uL (0-0.7); Eosinophils % (A) 3 %; HCT 25.4 % (34.0-46.0); HGB 7.8 gm/dL (11.4-16.0); Hypochromasia Marked; Lymphocytes # (A) 0.5 k/uL (1.0-4.8); Lymphocytes % (A) 14 %; MCH 25.8 pg (25.0-35.0); MCV 83.3 fL (80.0-100.0); Mean Platelet Volume 8.4; Microcytosis Slight; Monocytes # (A) 0.3 k/uL (0-1.0); Monocytes % (A) 9 %; Neutrophils # (A) 2.7 k/uL (1.3-7.7); Neutrophils % (A) 72 %; Platelet Count 177 k/uL (150-450); Poikilocytosis Slight; RBC 3.04 m/uL (3.80-5.40); WBC 3.7 k/uL (3.8-10.6)
[2020-08-19 07:27] LABS: Glucose,Whole Blood 98 mg/dL (75-99)
[2020-08-19] MEDS: HYDROcodone/APAP 5-325MG 1 EACH TAB PO SCH ×4 (07:59→21:26)
[2020-08-19] MEDS: FUROSEMIDE 20 MG TAB PO SCH (07:59)
[2020-08-19] MEDS: APIXABAN 5 MG TAB PO SCH (07:59)
[2020-08-19] MEDS: SPIRONOLACTONE 25 MG TAB PO SCH (08:00)
[2020-08-19] MEDS: MULTIVITAMINS, THERA 1 EACH TAB PO SCH (08:00)
[2020-08-19] MEDS: PANTOPRAZOLE 40 MG TABLET PO SCH (08:00)
[2020-08-19] MEDS: CHOLECALCIFEROL 25 MCG (1000 IU) TABLET PO SCH (08:00)
[2020-08-19] MEDS: LEVOTHYROXINE 25 MCG TAB PO SCH (08:01)
[2020-08-19] MEDS: OXYBUTYNIN 10 MG TAB.ER.24 PO SCH (08:01)
[2020-08-19 09:02] LABS: African American GFR (CKD) 81.3 (60.0-200.0); Anion Gap 5.5 mmol/L (4.00-12.00); BUN/Creat Ratio 28.75 Ratio (12.00-20.00); Carbon Dioxide 20.5 mmol/L (21.6-31.8); Magnesium 1.9 mg/dL (1.5-2.4); Non-African American GFR(CKD) 70.1 (60.0-200.0); Potassium 4.8 mmol/L (3.5-5.5)
--- NOTE | 2020-08-19 10:05 | P.PN ---
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 Another 2 bands were placed for EGD last week through GI team Other medical problems including atrial fibrillation, asthma, diabetes mellitus, deep venous thrombosis, hyperlipidemia, hypertension, osteoarthritis, pulmonary embolism, . She is a patient of Dr. 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 She was coming today for doing paracentesis as a scheduled however it was noticed that she has diarrhea for the last couple days like yesterday she had 12 episodes of loose bowel movement, there is no blood in it, no nausea vomiting. Stool looks a greenish, her son has similar diarrhea with a greenish stool of one-day duration and resolved. Also she has abdominal pain but does looks like related to her distended abdomen from ascites. She denies chest pain or dyspnea or headache. At baseline she uses a cane or a walker She denies smoking, alcohol or illicit drugs Vitals are stable. Labs showing hemoglobin 8.5, low lymphocyte at 0.6. INR 1.1, sodium 1:30. Risks of BMP is unremarkable, lactic acid is normal 1.7, liver enzymes elevated, lipase slightly up at 321, troponin is negative less than 0.012 CT of the abdomen and pelvis with contrast: Showing ascites, cirrhosis of the liver 08/15/2020 Patient is a status post paracenteses were large amount of fluid was removed and abdomen was prescribed by GI team, was procedure have abdominal distention and pain are significantly improved. Eliquis is resumed after the procedure Her diarrhea is improving today down from 10-15 yesterday as reported today is 4 times only as per patient. C. diff is negative. Stool culture is pending Hemoglobin number came down from 8.5 to 7.5, however there is evidence of hemodilution, there is a drop WBC and platelet as well. GI team on the case 08/16/2020 Patient got paracentesis yesterday and her abdominal distention improved but not resolved completely. Her diarrhea also is improving as she is having 1 soft bowel movement compared to 10 bouts of watery diarrhea on admission. She denies abdominal pain or dizziness. However she developed abnormal labs with a drop in hemoglobin to 6.5. Eliquis was held, occult blood in stool is ordered as well as abdominal ultrasound. We'll give also 1 unit of blood transfusion and patient agrees to it after risks are explained. WBC is 3.0, hemoglobin 6.5 and a platelet 202. Sugar is controlled 08/17/2020 Patient sitting on chair comfortable, no distress, no abdominal pain, her diarrhea has resolved and actually she feels constipated and she wants something to move her bowel. Tolerating diet well with no difficulty. 89/53 and 84/55, her blood pressure medication were hold and 1 dose of of vomiting IV is given She got one unit of blood yesterday, her hemoglobin went up to 9.7. Her sugar is controlled. Yesterday abdominal ultrasound showing no hemorrhage. Resume Eliquis and check hemoglobin tomorrow, if she remains stable then may consider for discharge if she remains a stable and improved She has bilateral pitting leg edema however she refuses to take diuretics because of her ALLERGY including no Lasix. 08/18/2020 Patient is awake and alert, she is sitting at bedside, she does not have significant abdominal pain which is better today. She is eating well. She has regular bowel movements. Her blood pressure is stable after started on Aldactone 50 mg yesterday, GI team are planning to it small dose of Lasix today. Patient already feels better that her Aldactone make her lose a lot of fluid and she is happy about that. I told her we stopped Norvasc and lower the dose of metoprolol for better blood pressure control and to goto diuretics. Currently her blood pressure is stable at 104/63. Yesterday she was started on Eliquis for her history of atrial fibrillation, her hemoglobin dropped slightly 9.7 down to 8.9. Because of this it was recommended to keep monitoring her hemoglobin for at least another 24 hours multiple check her hemoglobin tomorrow besides GI team will evaluate the patient today for his findings. Patient is telling me that she has an appointment with A fortino from GI on 08/27/20. Also she is planning to follow-up with Dr. Uriostegui upon discharge 08/19/2020 This is a pleasant 80 years old female who presents as with ascites secondary to decompensated cirrhosis secondary to Stuart, she underwent paracentesis last is awake and alert, lying in bed comfortable, she has little bit of abdominal discomfort which states she is chronic, I noticed her abdomen is a little bit more distended than yesterday, she was a started on Aldactone 50 mg daily as well as Lasix 20 mg daily by GI team her blood pressure this morning is 94/58 Patient with history of A. fib on Eliquis which was presumed couple days ago, however hemoglobin is trending down 9.7 to 8.9 to 7.8 today. Patient status blood transfusion before that. We will hold Eliquis and check her hemoglobin tomorrow Objective - Vital Signs Vital signs: Vital Signs Temp 98.1 F 08/19/20 04:09 Pulse 74 08/19/20 04:09 Resp 16 08/19/20 04:09 BP 94/58 08/19/20 04:09 Pulse Ox 98 08/19/20 04:09 Intake & Output 08/18/20 08/19/20 08/19/20 18:59 06:59 18:59 Intake Total 780 Balance 780 Intake: Oral 780 Other: Voiding Method Toilet Toilet # Voids 1 4 - Exam GENERAL: The patient is alert and oriented x3, not in any acute distress. Well developed, well nourished. HEENT: Pupils are round and equally reacting to light. EOMI. No scleral icterus. No conjunctival pallor. Normocephalic, atraumatic. No pharyngeal erythema. No thyromegaly. CARDIOVASCULAR: S1 and S2 present. No murmurs, rubs, or gallops. PULMONARY: Chest is clear to auscultation, no wheezing or crackles. -ABDOMEN: Soft, nontender, abdominal distention significantly improved, normoactive bowel sounds. No palpable organomegaly. MUSCULOSKELETAL: No joint swelling or deformity. EXTREMITIES: No cyanosis, clubbing, or pedal edema. NEUROLOGICAL: Gross neurological examination did not reveal any focal deficits. SKIN: No rashes. no petechiae. - Labs CBC & Chem 7: 08/19/20 05:45 08/19/20 05:45 Labs: Abnormal Lab Results - Last 24 Hours (Table) 08/18/20 08/18/20 08/18/20 Range/Units 12:28 17:08 21:29 WBC (3.8-10.6) k/uL RBC (3.80-5.40) m/uL Hgb (11.4-16.0) gm/dL Hct (34.0-46.0) % RDW (11.5-15.5) % Lymphocytes # (1.0-4.8) k/uL Sodium (135-145) mmol/L Carbon Dioxide (21.6-31.8) mmol/L BUN/Creatinine Ratio (12.00-20.00) Ratio POC Glucose (mg/dL) 114 H 112 H 128 H (75-99) mg/dL Calcium (8.7-10.3) mg/dL 08/19/20 08/19/20 Range/Units 05:45 05:45 WBC 3.7 L (3.8-10.6) k/uL RBC 3.04 L (3.80-5.40) m/uL Hgb 7.8 L (11.4-16.0) gm/dL Hct 25.4 L (34.0-46.0) % RDW 19.0 H (11.5-15.5) % Lymphocytes # 0.5 L (1.0-4.8) k/uL Sodium 132 L (135-145) mmol/L Carbon Dioxide 20.5 L (21.6-31.8) mmol/L BUN/Creatinine Ratio 28.75 H (12.00-20.00) Ratio POC Glucose (mg/dL) (75-99) mg/dL Calcium 8.0 L (8.7-10.3) mg/dL Assessment and Plan Assessment: Decompensated 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 Status post paracentesis on 08/15 Acute diarrhea with no evidence for C. diff, improved Anemia with drop in hemoglobin to 6.5, status post blood transfusion improved Esophageal varices Status post esophageal banding 1 week prior to admission hypervolemic hyponatremia Chronic atrial fibrillation, on Eliquis at home. Currently rate is controlled Chronic asthma, not an active issue Diabetes mellitus History of deep venous thrombosis/pulmonary embolism Hyperlipidemia Hypertension Plan: This is a pleasant 80 years old female who presents with diarrhea and ascites. Follow-up recommendation by GI team consult . Hold liquids and check Keep monitoring hemoglobin and blood pressure Hb Labs and medication were reviewed.. Continue same treatment. Continue with symptomatic treatment. Resume home medication. Monitor lytes and vitals. DVT and GI prophylaxis. Further recommendations depends on the clinical course of the patient DVT prophylaxis: Eliquis GI Prophylaxis: ppi PT/OT: Pending Resume Eliquis and check hemoglobin tomorrow, if she remains stable then may consider for discharge if she remains a stable and improved
[2020-08-19 11:27] LABS: Glucose,Whole Blood 106 mg/dL (75-99)
--- NOTE | 2020-08-19 11:53 | PN ---
PROGRESS NOTE DATE OF SERVICE: 08/19/2020 Patient is a 80-year-old pleasant white female admitted to hospital with ascites and anemia. She is status post paracentesis five days ago, 7 L removed. Presently she was started on Lasix 20 mg daily and Aldactone 50 mg daily and so far has been tolerating well. She denies any new symptoms. PHYSICAL EXAMINATION: Appears comfortable. VITAL SIGNS: Stable. Blood pressure 95/58, pulse rate 74, temperature 98.1. HEENT examination unremarkable. Conjunctivae pink. Sclerae anicteric. Oral cavity no lesions NECK: No JVD or lymph node enlargement. CHEST was clear auscultation. HEART: Regular rate and rhythm. ABDOMEN: Soft. Bowel sounds are positive. No organomegaly. EXTREMITIES: Trace pedal edema. SKIN: No rashes. NEURO: She is alert and oriented x3. No focal deficits. LABS: WBC 3.7, hemoglobin 7.8, platelets 177. BUN and creatinine are within normal limits. Sodium 132, potassium 4.8. IMPRESSION: 1. Anemia with mild drop in hemoglobin. The patient has clinically no active bleeding. Her stool Hemoccult was positive, status post EGD by Dr. Menon two weeks ago with esophageal variceal ligation done. Her last colonoscopy was several years ago. 2. Ascites requiring frequent paracentesis. She was recently started on Lasix 20 mg daily and Aldactone 50 mg daily and so far has been tolerating well. 3. History of nonalcoholic fatty liver disease with cirrhosis of the liver with gradual decompensation. 4. Chronic constipation. RECOMMENDATIONS: 1. Continue to monitor labs closely. 2. Continue with Lasix 20 mg daily and Aldactone 50 mg daily and based on her labs diuretic regimen can be changed on outpatient basis. 3. Since the patient does not have any active bleeding, no plans on any endoscopic intervention during this hospitalization. 4. Continue to use MiraLAX as needed. 5. She can be discharged home with outpatient followup in one week. Thank you for this consultation. MMODL / IJN: [id number] /
[2020-08-19] MEDS: METOPROLOL SUCCINATE (ER) 25 MG TAB.ER.24H PO SCH (13:05)
[2020-08-19] MEDS: lisinopriL 20 MG TAB PO SCH (13:05)
[2020-08-19 16:30] LABS: Glucose,Whole Blood 116 mg/dL (75-99)
[2020-08-19 20:11] LABS: Glucose,Whole Blood 132 mg/dL (75-99)
[2020-08-19] MEDS: MONTELUKAST 10 MG TAB PO SCH (21:24)
[2020-08-20 05:23] VITALS: PULSE 84; TEMP 97.7
[2020-08-20 05:40] LABS: Anisocytosis Slight; Basophils % (A) 1 %; Eosinophils # (A) 0.1 k/uL (0-0.7); Eosinophils % (A) 3 %; HCT 30.2 % (34.0-46.0); Hypochromasia Marked; Lymphocytes # (A) 0.6 k/uL (1.0-4.8); Lymphocytes % (A) 13 %; MCH 25.1 pg (25.0-35.0); MCHC 29.9 g/dL (31.0-37.0); Mean Platelet Volume 8.1; Microcytosis Slight; Monocytes # (A) 0.4 k/uL (0-1.0); Monocytes % (A) 7 %; Neutrophils # (A) 3.5 k/uL (1.3-7.7); Neutrophils % (A) 73 %; Platelet Count 179 k/uL (150-450); Poikilocytosis Slight; WBC 4.8 k/uL (3.8-10.6)
[2020-08-20 07:16] LABS: Glucose,Whole Blood 116 mg/dL (75-99)
[2020-08-20] MEDS: MULTIVITAMINS, THERA 1 EACH TAB PO SCH (08:23)
[2020-08-20] MEDS: PANTOPRAZOLE 40 MG TABLET PO SCH (08:23)
[2020-08-20] MEDS: LEVOTHYROXINE 25 MCG TAB PO SCH (08:23)
[2020-08-20] MEDS: OXYBUTYNIN 10 MG TAB.ER.24 PO SCH (08:23)
[2020-08-20] MEDS: HYDROcodone/APAP 5-325MG 1 EACH TAB PO SCH ×2 (08:23→12:23)
[2020-08-20] MEDS: CHOLECALCIFEROL 25 MCG (1000 IU) TABLET PO SCH (08:23)
[2020-08-20] MEDS: SPIRONOLACTONE 25 MG TAB PO SCH (08:23)
[2020-08-20] MEDS: FUROSEMIDE 20 MG TAB PO SCH (08:23)
[2020-08-20 11:23] LABS: Glucose,Whole Blood 119 mg/dL (75-99)
[2020-08-20] MEDS: METOPROLOL SUCCINATE (ER) 25 MG TAB.ER.24H PO SCH (12:22)
[2020-08-20] MEDS: lisinopriL 20 MG TAB PO SCH (12:22)
[2020-08-20 13:49] VITALS: BP 116/85
--- NOTE | 2020-08-20 16:38 | P.DS ---
Providers Date of admission: 08/14/20 12:20 Expected date of discharge: 08/20/20 Attending physician: Bg Ayon Consults: 08/14/20 12:32 Consult Physician Routine Consulting Provider: Saira Maciel Consult Reason/Comments: cirrhosis pt, ascites Do you want consulting provider notified?: Yes Primary care physician: Seven Bhagat [place] [facility] Course: Final diagnosis Decompensated 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 Status post paracentesis on 08/15 Acute diarrhea with no evidence for C. diff, improved Anemia with drop in hemoglobin to 6.5, status post blood transfusion improved Esophageal varices Status post esophageal banding 1 week prior to admission hypervolemic hyponatremia Chronic atrial fibrillation, on Eliquis at home. Currently rate is controlled Chronic asthma, not an active issue Diabetes mellitus History of deep venous thrombosis/pulmonary embolism Hyperlipidemia Hypertension Discharge disposition Patient is being discharged in a stable condition with guarded prognosis to home. Patient will follow-up with Dr. Amezcua upon discharge. Patient will follow-up with GI Dr. Maciel as previously scheduled. Patient also instructed to keep paracentesis appointment on Thursday and may resume Eliquis after paracentesis. Total time taken is greater than 35 minutes. Hospital course This is a 80-year-old female who was recently admitted with acute diarrhea and anemia and was being closely monitored. Patient has previous history of esophageal banding and is followed closely by GI in the outpatient setting. Patient is maintained on anticoagulant although has been on hold as patient was noted to have bleeding on admission. Patient did undergo EGD last week with GI and had 2 additional bands placed. Patient continued to have drops in h emoglobin requiring transfusion. Current hemoglobin is 9.0 today with no active bleeding noted. Patient states her bowel movements have become more formed and is only having one per day. Patient is tolerating diet. Patient does have a history of hypertension and adjustments to medications have been made. Patient instructed to follow-up with her primary care provider upon discharge and keep a diary of blood pressure readings for follow-up. Amlodipine has been discontinued. Patient is scheduled to receive a paracentesis this Thursday and instructed to continue holding Eliquis until after that and follow-up with primary care provider and GI. She verbalized understanding. Patient is requesting to go home today. She states she lives with her son and he helps take care of her. Currently no reports of chest pain, shortness of breath, or palpitations. Patient is afebrile. No reports of nausea or vomiting and patient is tolerating diet. On exam vital signs are stable. Temp is 97.7F, pulse is 84, respirations are 16, blood pressure is 116/85, oxygen saturation is 99% on room air. Cardio S1, S2 are muffled. Respiratory shows diminished breath sounds at the bases with no wheezing or rhonchi noted. Abdomen is soft, mildly distended, and nontender. Nervous system shows no focal deficits. Please refer to medication reconciliation sheet for a list of medications. Patient Condition at Discharge: Stable Plan - Discharge Summary Discharge Rx Participant: No New Discharge Prescriptions: New Spironolactone [Aldactone] 50 mg PO DAILY 30 Days #60 tab Furosemide [Lasix] 20 mg PO DAILY 30 Days #30 tab Continue Montelukast [Singulair] 10 mg PO HS@2200 Levothyroxine Sodium [Synthroid] 25 mcg PO DAILY@0700 Oxybutynin Chloride [Ditropan XL] 10 mg PO DAILY@1000 HYDROcodone/APAP 5-325MG [[place] 5-325] 1 tab PO QID@07,10,12,16 Multivit-Min/FA/Lycopen/Lutein [Centrum Silver Tablet] 1 tab PO DAILY@0700 lisinopriL [Zestril] 20 mg PO DAILY@1200 Albuterol Sulfate [Proair Hfa] 1 - 2 puff INHALATION Q6HR PRN PRN Reason: Shortness Of Breath Evolocumab [Repatha Sureclick] 140 mg SQ Q14D Diphenox-Atrop 2.5-0.025 mg [Lomotil] 1 tab PO DAILY PRN PRN Reason: Diarrhea EPINEPHrine (Auto Inject) [Epipen] 0.3 mg IM ONCE PRN PRN Reason: Anaphylaxis Ketoconazole/Hydrocortisone [Hydrocort 2.5%-Ketoconazole 2%] 1 applic TOPICAL DAILY PRN PRN Reason: Rash Vitamin D 1 tab PO DAILY Omeprazole 40 mg PO DAILY Apixaban [Eliquis] 5 mg PO BID@1000,2200 #0 Changed Metoprolol Succinate [Toprol XL] 12.5 mg PO DAILY@1200 #0 Discontinued amLODIPine [Norvasc] 2.5 mg PO BID@1000,2200 Niacin 500 mg PO BID@1000,2199 Discharge Medication List Levothyroxine Sodium [Synthroid] 25 mcg PO DAILY@0700 03/23/14 [History] Montelukast [Singulair] 10 mg PO HS@219903/23/14 [History] Oxybutynin Chloride [Ditropan XL] 10 mg PO DAILY@1000 03/23/14 [History] HYDROcodone/APAP 5-325MG [[place] 5-325] 1 tab PO QID@07,10,12,16 06/13/15 [ History] Multivit-Min/FA/Lycopen/Lutein [Centrum Silver Tablet] 1 tab PO DAILY@0700 06/13/15 [History] lisinopriL [Zestril] 20 mg PO DAILY@1200 09/02/17 [History] Albuterol Sulfate [Proair Hfa] 1 - 2 puff INHALATION Q6HR PRN 03/14/20 [History] Evolocumab [Repatha Sureclick] 140 mg SQ Q14D 03/14/20 [History] Diphenox-Atrop 2.5-0.025 mg [Lomotil] 1 tab PO DAILY PRN 04/13/20 [History] EPINEPHrine (Auto Inject) [Epipen] 0.3 mg IM ONCE PRN 04/13/20 [History] Ketoconazole/Hydrocortisone [Hydrocort 2.5%-Ketoconazole 2%] 1 applic TOPICAL DAILY PRN 05/15/20 [History] Vitamin D 1 tab PO DAILY 06/08/20 [History] Omeprazole 40 mg PO DAILY 06/20/20 [History] Apixaban [Eliquis] 5 mg PO BID@1000,2199 #0 08/20/20 [Rx] Furosemide [Lasix] 20 mg PO DAILY 30 Days #30 tab 08/20/20 [Rx] Metoprolol Succinate [Toprol XL] 12.5 mg PO DAILY@1200 #0 08/20/20 [Rx] Spironolactone [Aldactone] 50 mg PO DAILY 30 Days #60 tab 08/20/20 [Rx] Follow up Appointment(s)/Referral(s): Shea Amezcua MD [Primary Care Provider] - 08/23/20 10:40 am Saira Maciel MD [STAFF PHYSICIAN] - 08/27/20 1:00 pm Patient Instructions/Handouts: Ascites (DC) Activity/Diet/Wound Care/Special Instructions: Activity limited until primary care follow-up Follow-up with primary care provider upon discharge Follow-up with GI in one week as discussed Keep paracentesis appointment on Thursday and may resume Eliquis after Follow-up with cardiology in the outpatient setting Continue with low fiber low-sodium diet and fluid restriction of 1500 mL (1.5Liters) daily Discharge Disposition: HOME SELF-CARE
== END 2020-08-20 14:27 | disposition home or self-care (01) | DRG 433 ==
LOC: EC 09:42 → 5NMEDONC 12:20
PROVIDERS: ADMIT Hospitalist; ATTEND Hospitalist
PROC: 0W9G3ZZ Drainage of Peritoneal Cavity, Percutaneous Approach (ICD-10-PCS; principal; 2020-08-15)
PROC: 30233N1 Transfusion of Nonautologous Red Blood Cells into Peripheral Vein, Percutaneous Approach (ICD-10-PCS; 2020-08-15)
DX: K74.60 Unspecified cirrhosis of liver (principal); I48.20 Chronic atrial fibrillation, unspecified; E87.1 Hypo-osmolality and hyponatremia; I85.10 Secondary esophageal varices without bleeding; R18.8 Other ascites; K76.6 Portal hypertension; K75.81 Nonalcoholic steatohepatitis (NASH); Z96.653 Presence of artificial knee joint, bilateral; J44.9 Chronic obstructive pulmonary disease, unspecified; M19.90 Unspecified osteoarthritis, unspecified site; E03.9 Hypothyroidism, unspecified; E78.5 Hyperlipidemia, unspecified; I10 Essential (primary) hypertension; E11.9 Type 2 diabetes mellitus without complications; K59.09 Other constipation; D63.8 Anemia in other chronic diseases classified elsewhere; Z20.822 Contact with and (suspected) exposure to COVID-19; Z96.619 Presence of unspecified artificial shoulder joint; Z98.1 Arthrodesis status; Z90.710 Acquired absence of both cervix and uterus; Z87.891 Personal history of nicotine dependence; Z86.718 Personal history of other venous thrombosis and embolism; Z86.711 Personal history of pulmonary embolism; Z79.899 Other long term (current) drug therapy; Z79.890 Hormone replacement therapy; Z79.01 Long term (current) use of anticoagulants; Z88.1 Allergy status to other antibiotic agents; Z91.030 Bee allergy status; Z88.0 Allergy status to penicillin; Z91.013 Allergy to seafood; Z88.2 Allergy status to sulfonamides; Z88.8 Allergy status to other drugs, medicaments and biological substances; Z91.018 Allergy to other foods
CPT/HCPCS: 36415; 49083; 74177; 76705; 80048; 80053; 81003; 82150; 82272; 83605; 83630; 83690; 83735; 84484; 85025; 85610; 85730; 86850; 86900; 86901; 86920; 87045; 87046; 87324; 87635; 93005; 94640; 99285

== ENCOUNTER 2020-08-22 08:53 | Day surgery (SDC) | payer MEDICARE ==
[2020-08-22 09:27] LABS: Mean Platelet Volume 8.3; Platelet Count 282 k/uL (150-450)
[2020-08-22 09:31] VITALS: RESP 18; TEMP 97.6
[2020-08-22 09:38] LABS: INR 1.1 (<1.2); Prothrombin Time 11.4 sec (9.0-12.0)
[2020-08-22] MEDS: ALBUMIN HUMAN 25% 50 ML in EMPTY BAG 1 BAG IVPB SCH ×3 (10:44→11:21)
[2020-08-22 11:47] VITALS: BP 112/54; PULSE 64
--- NOTE | 2020-08-22 13:08 | US ---
EXAMINATION TYPE: US paracentesis abd w/image DATE OF EXAM: 08/22/2020 COMPARISON: NONE HISTORY: Ascites. PROCEDURE: Maximal barrier technique was utilized. The skin overlying a suitable pocket of fluid was localized with ultrasound and the overlying skin was prepped and draped. Ultrasound was utilized with sterile technique. Lidocaine was used for local anesthesia and a skin saurabh made with a scalpel. Catheter was advanced under direct ultrasound guidance into a suitable pocket of fluid and approximately 6 liters of serous fluid were removed. Catheter was withdrawn and hemostasis achieved. There is no immediate complication; the patient is discharged in stable condition. IMPRESSION: STATUS POST ULTRASOUND GUIDED PARACENTESIS FOR PALLIATION OF ASCITES. THIS PROCEDURE WA S PERFORMED BY THE UNDERSIGNED.
== END 2020-08-22 11:45 | disposition home or self-care (01) ==
LOC: RADPROMAIN 08:53
PROVIDERS: ATTEND Internal Medicine Gastroenterology
DX: R18.8 Other ascites (principal); K74.60 Unspecified cirrhosis of liver
CPT/HCPCS: 82565; 82947; 85049; 85610; 36415; 49083; P9047

== ENCOUNTER 2020-08-31 08:45 | Day surgery (SDC) | payer MEDICARE ==
[2020-08-31 09:12] VITALS: TEMP 97.8
[2020-08-31 09:24] LABS: Mean Platelet Volume 9.1; Platelet Count 379 k/uL (150-450)
[2020-08-31 09:31] LABS: INR 1.2 (<1.2); Prothrombin Time 12.3 sec (9.0-12.0)
[2020-08-31] MEDS: ALBUMIN HUMAN 25% 50 ML in EMPTY BAG 1 BAG IVPB SCH ×4 (10:23→11:11)
[2020-08-31 12:20] VITALS: BP 105/55; PULSE 78; RESP 16
--- NOTE | 2020-08-31 12:54 | US ---
EXAMINATION TYPE: US paracentesis abd w/image DATE OF EXAM: 08/31/2020 COMPARISON: NONE HISTORY: Ascites. PROCEDURE: Maximal barrier technique was utilized. The skin overlying a suitable pocket of fluid was localized with ultrasound and the overlying skin was prepped and draped. Ultrasound was utilized with sterile technique. Lidocaine was used for local anesthesia and a skin saurabh made with a scalpel. Catheter was advanced under direct ultrasound guidance into a suitable pocket of fluid and approximately 6.7 liter s of serous fluid were removed. Catheter was withdrawn and hemostasis achieved. There is no immedia te complication; the patient is discharged in stable condition. IMPRESSION: STATUS POST ULTRASOUND GUIDED PARACENTESIS FOR PALLIATION OF ASCITES. THIS PROCEDURE WA S PERFORMED BY THE UNDERSIGNED.
== END 2020-08-31 12:15 | disposition home or self-care (01) ==
LOC: RADPROMAIN 08:45
PROVIDERS: ATTEND Internal Medicine Cardiovascular Disease
DX: R18.8 Other ascites (principal)
CPT/HCPCS: 82565; 82947; 85049; 85610; 36415; 49083; P9047

== ENCOUNTER 2020-08-31 12:09 | Inpatient (IN) | payer MEDICARE ==
[2020-08-31 12:35] LABS: Anisocytosis Slight; Basophils % (A) 0 %; Eosinophils # (A) 0.1 k/uL (0-0.7); Eosinophils % (A) 1 %; HCT 24.3 % (34.0-46.0); HGB 7.8 gm/dL (11.4-16.0); Hypochromasia Moderate; Lymphocytes # (A) 0.5 k/uL (1.0-4.8); Lymphocytes % (A) 10 %; MCH 25.7 pg (25.0-35.0); MCHC 32.2 g/dL (31.0-37.0); MCV 79.9 fL (80.0-100.0); Mean Platelet Volume 8.8; Microcytosis Slight; Monocytes # (A) 0.4 k/uL (0-1.0); Monocytes % (A) 7 %; Neutrophils # (A) 4.1 k/uL (1.3-7.7); Neutrophils % (A) 80 %; Platelet Count 245 k/uL (150-450); RBC 3.04 m/uL (3.80-5.40); RDW 19.6 % (11.5-15.5); WBC 5.2 k/uL (3.8-10.6)
--- NOTE | 2020-08-31 12:35 | ED ---
General Adult HPI - General Chief complaint: Recheck/Abnormal Lab/Rx Stated complaint: Low BP/Abd labs Time Seen by Provider: 08/31/20 12:17 Source: patient, RN notes reviewed, old records reviewed Mode of arrival: wheelchair Limitations: physical limitation - History of Present Illness Initial comments: 80-year-old female presenting for evaluation of low blood pressure after paracentesis. Patient had approximate 7 L removed which she has weekly for ascites secondary to nonalcoholic fatty liver and cirrhosis. She states she typically does receive albumin with her paracentesis. Today she was given 5 g albumin. Her laboratory tests were checked prior to the procedure and was noted that she had a elevation in her serum creatinine at 1.7. She states that this week her Lasix was increased to 40 mg twice daily she is additionally on spironolactone. Her lisinopril was cut down to 10 mg daily and her metoprolol was cut down to 12.5 mg daily. She has no chest pain or dyspnea. No cough or fever. No abdominal pain. She does report some lower extremity swelling. - Related Data Home Medications Medication Instructions Recorded Confirmed Levothyroxine Sodium [Synthroid] 25 mcg PO DAILY@0700 03/23/14 08/31/20 Montelukast [Singulair] 10 mg PO HS@2200 03/23/14 08/31/20 Oxybutynin Chloride [Ditropan XL] 10 mg PO DAILY@1000 03/23/14 08/31/20 HYDROcodone/APAP 5-325MG [[place] 1 tab PO QID@07,10,12,16 06/13/15 08/31/20 5-325] Multivit-Min/FA/Lycopen/Lutein 1 tab PO DAILY@0700 06/13/15 08/31/20 [Centrum Silver Tablet] lisinopriL [Zestril] 10 mg PO DAILY@1200 09/02/17 08/31/20 Evolocumab [Repatha Sureclick] 140 mg SQ Q14D 03/14/20 08/31/20 EPINEPHrine (Auto Inject) [Epipen] 0.3 mg IM ONCE PRN 04/13/20 08/31/20 Omeprazole 40 mg PO DAILY 06/20/20 08/31/20 Albuterol Inhaler [Ventolin Hfa 1 puff INHALATION RT-Q4H PRN 08/31/20 08/31/20 Inhaler] Cholecalciferol [Vitamin D3 (25 25 mcg PO DAILY@1000 08/31/20 08/31/20 Mcg = 1000 Iu)] Furosemide [Lasix] 20 mg PO BID 08/31/20 08/31/20 Ketoconazole 2% Cream [Nizoral 2%] 1 applic TOPICAL BID PRN 08/31/20 08/31/20 Lutein 10 mg PO DAILY 08/31/20 08/31/20 Spironolactone [Aldactone] 25 mg PO BID 08/31/20 08/31/20 Previous Rx's Medication Instructions Recorded Apixaban [Eliquis] 5 mg PO BID@1000,2200 #0 08/20/20 Metoprolol Succinate [Toprol XL] 12.5 mg PO DAILY@1200 #0 08/20/20 Allergies Allergy/AdvReac Type Severity Reaction Status Date / Time venom-wasp [Wasp Venom] Allergy Severe Swelling Verified 08/31/20 13:01 adhesive Allergy Unknown Rash/Hives Verified 08/31/20 13:01 amoxicillin [Amoxicillin] Allergy Unknown Rash/Hives, Verified 08/31/20 13:01 itching fenofibrate nanocrystallized Allergy Unknown Rash/Hives,joint Verified 08/31/20 13:01 [From Tricor] pain fenofibrate,micronized Allergy Unknown Rash/Hives, Verified 08/31/20 13:01 [From Tricor] joint pain hydrochlorothiazide Allergy Unknown Rash/Hives Verified 08/31/20 13:01 Neuromuscular Blockers, Allergy Unknown Rash/Hives Verified 08/31/20 13:01 Steroidal [Steroidal Neuromuscular Blockers] Penicillins Allergy Unknown Rash/Hives, Verified 08/31/20 13:01 red skin shellfish derived Allergy Unknown SKIN RED Verified 08/31/20 13:01 AND WARM simvastatin [From Zocor] Allergy Unknown Rash/Hives, Verified 08/31/20 13:01 joint pain Oqsbqpw-Dny-Dah Reductase Allergy Unknown Rash/Hives, Verified 08/31/20 13:01 Inhibitor joint pain venom-honey bee Allergy Unknown Swelling Verified 08/31/20 13:01 [bee venom (honey bee)] cat dander Allergy Rash/Hives Verified 08/31/20 13:01 ciprofloxacin HCl Allergy Unknown Verified 08/31/20 13:01 [From Cipro] sulfamethoxazole Allergy Rash/Hives Verified 08/31/20 13:01 talc Allergy Rash/Hives Verified 08/31/20 13:01 walnut Allergy Rash/Hives Verified 08/31/20 13:01 clarithromycin AdvReac warm and Verified 08/31/20 13:01 flushed minocycline AdvReac warm and Verified 08/31/20 13:01 flushed prednisone AdvReac Nausea Verified 08/31/20 13:01 soy AdvReac Nausea & Verified 08/31/20 13:01 Vomiting Review of Systems ROS Statement: Those systems with pertinent positive or pertinent negative responses have been documented in the HPI. ROS Other: All systems not noted in ROS Statement are negative. Past Medical History Past Medical History: Diabetes Mellitus Additional Past Medical History / Comment(s): VERTIGO, CIRRHOSIS from fattty liver, DIABETES , OVER ACTIVE BLADDER, DVT & PE AFTER LEG FX. WEARS DENTAL SPACER TO PREVENT GRINDING TEETH, ascites, skin cancer, paracentsis History of Any Multi-Drug Resistant Organisms: None Reported Past Surgical History: Back Surgery, Breast Surgery, Hysterectomy, Joint Replacement, Orthopedic Surgery Additional Past Surgical History / Comment(s): CATARACTS, RT BREAST FATTY TUMOR, ROSI KNEE REPLACEMENT, ROSI SHOULDER REPLACEMENT, NECK FUSION, ROSI CARPAL TUNNEL, ROSI TRIGGER FINGER, RT FOOT BONE SPUR, RIGHT LEG FX, multiple large volume paracentesis Past Anesthesia/Blood Transfusion Reactions: Motion Sickness, Postoperative Naus ea & Vomiting (PONV) Additional Past Anesthesia/Blood Transfusion Reaction / Comment(s): Patient received blood in 1959, unsure if reactions would occur now. Past Psychological History: No Psychological Hx Reported Smoking Status: Former smoker Past Alcohol Use History: None Reported Past Drug Use History: None Reported - Past Family History Mother History Unknown: Yes Father History Unknown: Yes General Exam Limitations: physical limitation General appearance: alert, in no apparent distress Head exam: Present: atraumatic, normocephalic Eye exam: Present: normal appearance, PERRL ENT exam: Present: mucous membranes dry Neck exam: Present: normal inspection. Absent: tenderness, meningismus Respiratory exam: Present: normal lung sounds bilaterally. Absent: respiratory distress, wheezes Cardiovascular Exam: Present: regular rate, irregular rhythm GI/Abdominal exam: Present: soft, distended (Minimal distention). Absent: tenderness, guarding, rebound, rigid Rectal exam: Present: normal inspection, black stool. Absent: bloody stool Extremities exam: Present: pedal edema Neurological exam: Present: alert, oriented X3, CN II-XII intact. Absent: motor sensory deficit Psychiatric exam: Present: normal affect, normal mood Skin exam: Present: warm, dry, intact. Absent: cyanosis, diaphoretic Course Vital Signs 08/31/20 08/31/20 08/31/20 12:10 12:29 12:50 Temperature 97.2 F L Pulse Rate 71 85 68 Respiratory 18 18 18 Rate Blood Pressure 106/58 109/47 99/45 O2 Sat by Pulse 100 100 100 Oximetry Medical Decision Making - Medical Decision Making 80-year-old female presenting with low blood pressure and elevated creatinine from outpatient surgery. Patient had paracentesis today. She has no: Complaints of abdominal pain. She is noted to have a creatinine 1.47 which is slightly above her baseline. Her BUN is 78 and her hemoglobin has slightly dropped currently 7.8. I did perform a rectal exam which is Hemoccult positive. He is concern for GI bleed. She started on Protonix. She will be admitted with gastric neurology consult per case discussed with Dr. Ayon who will admit. - Lab Data Result diagrams: 08/31/20 12:27 08/31/20 12:27 Lab Results 08/31/20 08/31/20 08/31/20 Range/Units 12:27 12:27 13:09 WBC 5.2 (3.8-10.6) k/uL RBC 3.04 L (3.80-5.40) m/uL Hgb 7.8 L (11.4-16.0) gm/dL Hct 24.3 L (34.0-46.0) % MCV 79.9 L (80.0-100.0) fL MCH 25.7 (25.0-35.0) pg MCHC 32.2 (31.0-37.0) g/dL RDW 19.6 H (11.5-15.5) % Plt Count 245 (150-450) k/uL MPV 8.8 Neutrophils % 80 % Lymphocytes % 10 % Monocytes % 7 % Eosinophils % 1 % Basophils % 0 % Neutrophils # 4.1 (1.3-7.7) k/uL Lymphocytes # 0.5 L (1.0-4.8) k/uL Monocytes # 0.4 (0-1.0) k/uL Eosinophils # 0.1 (0-0.7) k/uL Basophils # 0.0 (0-0.2) k/uL Hypochromasia Moderate Anisocytosis Slight Microcytosis Slight PT (9.0-12.0) sec INR (<1.2) APTT (22.0-30.0) sec Sodium 131 L (137-145) mmol/L Potassium 4.7 (3.5-5.1) mmol/L Chloride 104 (98-107) mmol/L Carbon Dioxide 17 L (22-30) mmol/L Anion Gap 10 mmol/L BUN 78 H (7-17) mg/dL Creatinine 1.47 H (0.52-1.04) mg/dL Est GFR (CKD-EPI)AfAm 39 (>60 ml/min/1.73 sqM) Est GFR (CKD-EPI)NonAf 34 (>60 ml/min/1.73 sqM) Glucose 108 H (74-99) mg/dL Calcium 8.8 (8.4-10.2) mg/dL Magnesium 2.3 (1.6-2.3) mg/dL Total Bilirubin 0.3 (0.2-1.3) mg/dL AST 29 (14-36) U/L ALT 15 (4-34) U/L Alkaline Phosphatase 61 (38-126) U/L Total Protein 6.0 L (6.3-8.2) g/dL Albumin 3.9 (3.5-5.0) g/dL Stool Occult Blood Positive H (Negative) 08/31/20 Range/Units 13:09 WBC (3.8-10.6) k/uL RBC (3.80-5.40) m/uL Hgb (11.4-16.0) gm/dL Hct (34.0-46.0) % MCV (80.0-100.0) fL MCH (25.0-35.0) pg MCHC (31.0-37.0) g/dL RDW (11.5-15.5) % Plt Count (150-450) k/uL MPV Neutrophils % % Lymphocytes % % Monocytes % % Eosinophils % % Basophils % % Neutrophils # (1.3-7.7) k/uL Lymphocytes # (1.0-4.8) k/uL Monocytes # (0-1.0) k/uL Eosinophils # (0-0.7) k/uL Basophils # (0-0.2) k/uL Hypochromasia Anisocytosis Microcytosis PT 11.7 (9.0-12.0) sec INR 1.1 (<1.2) APTT 23.8 (22.0-30.0) sec Sodium (137-145) mmol/L Potassium (3.5-5.1) mmol/L Chloride (98-107) mmol/L Carbon Dioxide (22-30) mmol/L Anion Gap mmol/L BUN (7-17) mg/dL Creatinine (0.52-1.04) mg/dL Est GFR (CKD-EPI)AfAm (>60 ml/min/1.73 sqM) Est GFR (CKD-EPI)NonAf (>60 ml/min/1.73 sqM) Glucose (74-99) mg/dL Calcium (8.4-10.2) mg/dL Magnesium (1.6-2.3) mg/dL Total Bilirubin (0.2-1.3) mg/dL AST (14-36) U/L ALT (4-34) U/L Alkaline Phosphatase (38-126) U/L Total Protein (6.3-8.2) g/dL Albumin (3.5-5.0) g/dL Stool Occult Blood (Negative) Disposition Clinical Impression: Ascites, GI bleed Disposition: ADMITTED IP TO THIS [facility] Condition: Stable Is patient prescribed a controlled substance at d/c from ED?: No Referrals: Shea Amezcua MD [Primary Care Provider] - 1-2 days Decision to Admit Reason: Admit from EC Decision Date: 08/31/20 Decision Time: 13:46
[2020-08-31 12:48] LABS: Albumin 3.9 g/dL (3.5-5.0); Calcium 8.8 mg/dL (8.4-10.2); Magnesium 2.3 mg/dL (1.6-2.3); Potassium 4.7 mmol/L (3.5-5.1); Total Bilirubin 0.3 mg/dL (0.2-1.3)
[2020-08-31 13:28] LABS: INR 1.1 (<1.2); Partial Thromboplastin Time 23.8 sec (22.0-30.0); Prothrombin Time 11.7 sec (9.0-12.0)
[2020-08-31] MEDS ORDERED: PANTOPRAZOLE 40 MG/10 ML VIAL IVP STA (13:39)
[2020-08-31] MEDS ORDERED: NALOXONE 0.4 MG/ML 1 ML VIAL IV PRN (13:47)
[2020-08-31] MEDS ORDERED: ACETAMINOPHEN TAB 325 MG TAB PO PRN (13:47)
[2020-08-31] MEDS ORDERED: HYDROcodone/APAP 5-325MG 1 EACH TAB PO STA (14:43)
[2020-08-31] MEDS ORDERED: CLOTRIMAZOLE 1% CREAM 15 GM TUBE TOPICAL PRN (16:05)
[2020-08-31] MEDS ORDERED: ALBUTEROL HFA INHALER INHALATION PRN (16:05)
[2020-08-31] MEDS ORDERED: ALPRAZolam 0.25 MG TAB PO PRN (16:07)
[2020-08-31 16:08] LABS: Anisocytosis Slight; HCT 25.9 % (34.0-46.0); HGB 7.7 gm/dL (11.4-16.0); Hypochromasia Marked; MCH 24.5 pg (25.0-35.0); MCHC 29.9 g/dL (31.0-37.0); Mean Platelet Volume 8.8; Microcytosis Slight; Platelet Count 269 k/uL (150-450); RBC 3.15 m/uL (3.80-5.40); RDW 19.1 % (11.5-15.5); WBC 4.7 k/uL (3.8-10.6)
--- NOTE | 2020-08-31 16:36 | XR ---
EXAMINATION TYPE: XR chest 1V portable DATE OF EXAM: 08/31/2020 CLINICAL HISTORY: Difficulty breathing and CHF progress study. TECHNIQUE: Single AP portable upright view of the chest is obtained. COMPARISON: Chest x-ray from June 13, 2015 FINDINGS: Anterior fusion plate in cervical spine is redemonstrated. There is metallic hardware bila teral shoulder level partially imaged similar to prior. Heart size stable and upper limits of normal with atherosclerotic change aortic knob. Elevated left hemidiaphragm. Lungs remain clear without pleu ral effusion or pneumothorax. Partial visualization of surgical change in the lumbar spine. IMPRESSION: No acute process.
[2020-08-31 17:07] LABS: Glucose,Whole Blood 104 mg/dL (75-99)
--- NOTE | 2020-08-31 17:12 | HP ---
HISTORY AND PHYSICAL DATE OF SERVICE: 08/31/2020 CHIEF COMPLAINTS: Low blood pressure, diarrhea as well as abnormal labs. HISTORY OF PRESENT ILLNESS: This 80-year-old woman with a past medical history of multiple medical problems, being followed by Dr. Amezcua in the outpatient setting, was recently admitted to [facility] with complaints of decompensated liver cirrhosis secondary to nonalcoholic steatohepatitis as well as ascites. The patient had paracentesis on August 15. The patient had some acute diarrhea with no evidence of C difficile. Patient was treated symptomatically. Patient improved significantly. The patient went home but continued to have diarrhea which was black-colored and the patient was complaining of weakness and tiredness. Blood pressure was found to be low, and the patient came to [facility] and was admitted for further evaluation. Hemoglobin was 7.8 and creatinine was 1.47. The baseline creatinine was around 1.01, indicating acute renal failure. There is no history of any fever, rigor or chills. No history of headache, loss of consciousness, seizures at this time. No history of chest pain, palpitations, either. PAST MEDICAL HISTORY: History of atrial ablation, history of asthma, diabetes mellitus, fibromyalgia, GERD, hypertension, hyperlipidemia, history of pulmonary embolism, history of hypothyroidism. HOME MEDICATIONS: Zestril, Aldactone, Ditropan, omeprazole, Toprol-XL, Synthroid, Lasix, Repatha, ALLERGIES: MULTIPLE. WASP VENOM, ADHESIVE, AMOXICILLIN, SHELLFISH, SIMVASTATIN, [place], CLARITHROMYCIN, MINOCYCLINE, PREDNISONE, SOY. FAMILY HISTORY: No history of heart disease or strokes in the family. SOCIAL HISTORY: No history of alcohol intake. Previous history of smoking. REVIEW OF SYSTEMS: ENT: Diminished hearing. Diminished vision. CARDIOVASCULAR SYSTEM: No angina, palpitations. RESPIRATORY SYSTEM: As mentioned earlier. GI: As mentioned earlier. : No dysuria or retention. NERVOUS SYSTEM: No numbness, weakness. ALLERGY/IMMUNOLOGY: As mentioned earlier. HEMATOLOGY/ONCOLOGY: As mentioned earlier. Pulmonary embolism. CONSTITUTIONAL: As mentioned earlier. DERMATOLOGY: Negative. RHEUMATOLOGY: Negative. PSYCHIATRY: As mentioned earlier. PHYSICAL EXAMINATION: Patient is alert, oriented x3. Pulse is 92, blood pressure 111/50, respirations 16, temperature 98 degrees, pulse ox 100% on room air. HEENT: Conjunctivae pale. Oral mucosa moist. NECK: No jugular venous distention. No carotid bruit. No lymph node enlargement. CARDIOVASCULAR SYSTEM: S1, S2 muffled. No S3. No S4. RESPIRATORY SYSTEM: Breath sounds diminished at the bases. Scattered rhonchi. No crackles. ABDOMEN: Soft, obese. Ascites present. Non-tender. No mass palpable. LEGS: No edema. No swelling. NERVOUS SYSTEM: Higher functions as mentioned earlier. Moves all 4 limbs. No focal motor or sensory deficit. LYMPHATICS: No lymph node palpable in neck, axillae or groin. SKIN: No ulcer, rash, bleeding. JOINTS: No active deforming arthropathy. LABS: Labs at this time show WBC 5.2, hemoglobin 7.8, sodium 131, potassium 4.7. ASSESSMENT: 1. Acute upper gastrointestinal bleeding with acute blood loss anemia, symptomatic, possibly secondary from gastric sis. 2. Non-alcoholic cirrhosis of the liver. 3. Hyponatremia. 4. Hypotension, multifactorial. 5. Acute renal failure, acute tubular necrosis with prerenal uremia. 6. Stool occult blood positive. 7. Atrial fibrillation history. 8. History of asthma. 9. History of diabetes mellitus. 10.History of fibromyalgia. 11.Gastroesophageal reflux disease. 12.Hypertension. 13.Hyperlipidemia. 14.History of degenerative joint disease. 15.History of pulmonary embolism. 16.History of ascites and multiple paracenteses. 17.History of radiculopathy, right. 18.History of appendectomy. 19.History of back surgery. 20.Remote history of nicotine dependence. 21.FULL CODE. RECOMMENDATIONS AND DISCUSSION: In this 80-year-old woman who presented with multiple complex medical issues, at this time I recommend continue the current medications, continue symptomatic treatment. Otherwise I would recommend one unit transfusion at least and monitor hemoglobin and hematocrit closely. Avoid blood pressure-lowering medications. Proton pump inhibitors. Gastroenterology consultation for possible endoscopy. Dr. Menon did an endoscopy on August 07 which showed esophageal viruses and cirrhosis of the liver, decompensated ALFONSO with cirrhosis; however, acute bleeding secondary to vaginal bleeding cannot be ruled out at this time. Prognosis is guarded because of multiple complex medical issues. See orders for further details. INR is only 1.1 at this time. We will continue to monitor. A copy of this dictation is being forwarded to Dr. Amezcua, who is the primary physician. MMODL / IJN: [id number] / RAYMOND
[2020-08-31] MEDS: INSULIN ASPART (NovoLOG) 100 UNIT/ML VIAL SQ SCH ×2 (17:20→20:16)
[2020-08-31 19:28] LABS: Appearance,Urine Clear (Clear); Bilirubin,Urine Negative (Negative); Blood,Urine Negative (Negative); Color,Urine Light Yellow; Glucose,Urine (UA) Negative (Negative); Ketones,Urine Negative (Negative); Leukocyte Esterase,Urine Negative (Negative); Nitrite,Urine Negative (Negative); Protein,Urine Negative (Negative); Specific Gravity,Urine 1.014 (1.001-1.035); Urobilinogen,Urine <2.0 mg/dL (<2.0)
[2020-08-31 19:57] LABS: Glucose,Whole Blood 121 mg/dL (75-99)
[2020-08-31] MEDS: SPIRONOLACTONE 25 MG TAB PO SCH (20:15)
[2020-08-31] MEDS: FUROSEMIDE 20 MG TAB PO SCH (20:15)
[2020-08-31] MEDS: PANTOPRAZOLE 40 MG/10 ML VIAL IVP SCH (21:08)
[2020-08-31] MEDS: MONTELUKAST 10 MG TAB PO SCH (21:09)
[2020-08-31 22:52] LABS: Anisocytosis Moderate; Basophils % (A) 0 %; Eosinophils # (A) 0.1 k/uL (0-0.7); Eosinophils % (A) 1 %; HCT 30.1 % (34.0-46.0); Hypochromasia Moderate; Lymphocytes # (A) 0.5 k/uL (1.0-4.8); Lymphocytes % (A) 11 %; MCH 26.4 pg (25.0-35.0); MCHC 31.9 g/dL (31.0-37.0); MCV 82.9 fL (80.0-100.0); Mean Platelet Volume 8.8; Microcytosis Slight; Monocytes # (A) 0.3 k/uL (0-1.0); Monocytes % (A) 7 %; Neutrophils # (A) 3.2 k/uL (1.3-7.7); Neutrophils % (A) 79 %; Platelet Count 244 k/uL (150-450); Poikilocytosis Slight; RBC 3.63 m/uL (3.80-5.40); RDW 20.2 % (11.5-15.5); WBC 4.1 k/uL (3.8-10.6)
[2020-08-31 23:05] LABS: HGB 9.6 gm/dL (11.4-16.0)
[2020-08-31] MEDS: HYDROcodone/APAP 5-325MG 1 EACH TAB PO SCH (23:55)
[2020-09-01 04:44] LABS: Anisocytosis Slight; Basophils % (A) 1 %; Eosinophils # (A) 0.1 k/uL (0-0.7); Eosinophils % (A) 2 %; HCT 29.3 % (34.0-46.0); HGB 9.1 gm/dL (11.4-16.0); Hypochromasia Marked; Lymphocytes # (A) 0.4 k/uL (1.0-4.8); Lymphocytes % (A) 15 %; MCH 26.2 pg (25.0-35.0); MCHC 30.9 g/dL (31.0-37.0); Mean Platelet Volume 8.7; Microcytosis Slight; Monocytes # (A) 0.2 k/uL (0-1.0); Monocytes % (A) 7 %; Neutrophils # (A) 2.1 k/uL (1.3-7.7); Neutrophils % (A) 73 %; Platelet Count 224 k/uL (150-450); Poikilocytosis Slight; RBC 3.45 m/uL (3.80-5.40); RDW 19.7 % (11.5-15.5); WBC 2.9 k/uL (3.8-10.6)
[2020-09-01 04:56] LABS: Calcium 8.7 mg/dL (8.4-10.2); Potassium 4.6 mmol/L (3.5-5.1)
[2020-09-01 06:05] LABS: Glucose,Whole Blood 99 mg/dL (75-99)
[2020-09-01] MEDS: LEVOTHYROXINE 25 MCG TAB PO SCH (06:23)
[2020-09-01] MEDS: INSULIN ASPART (NovoLOG) 100 UNIT/ML VIAL SQ SCH ×4 (06:24→20:58)
[2020-09-01] MEDS ORDERED: NON FORMULARY DRUG (Multivit-Min/Fa/Lycopen/Lutein [Centrum Silver Tablet] 1 EACH Tablet) PO SCH (07:00)
[2020-09-01] MEDS ORDERED: ATROPINE SULFATE 0.1 MG/ML 10ML SYRINGE ONE (07:08)
[2020-09-01 09:25] LABS: Anisocytosis Slight; HCT 30.2 % (34.0-46.0); HGB 9.6 gm/dL (11.4-16.0); Hypochromasia Moderate; MCH 26.3 pg (25.0-35.0); MCHC 31.7 g/dL (31.0-37.0); MCV 82.8 fL (80.0-100.0); Mean Platelet Volume 8.5; Microcytosis Slight; Platelet Count 240 k/uL (150-450); Poikilocytosis Slight; RBC 3.65 m/uL (3.80-5.40); RDW 19.9 % (11.5-15.5); WBC 4.4 k/uL (3.8-10.6)
[2020-09-01] MEDS: SPIRONOLACTONE 25 MG TAB PO SCH ×2 (09:37→20:00)
[2020-09-01] MEDS: PANTOPRAZOLE 40 MG/10 ML VIAL IVP SCH ×2 (09:37→20:01)
[2020-09-01] MEDS: HYDROcodone/APAP 5-325MG 1 EACH TAB PO SCH ×4 (09:38→22:58)
[2020-09-01] MEDS: CHOLECALCIFEROL 25 MCG (1000 IU) TABLET PO SCH (09:38)
[2020-09-01] MEDS: FUROSEMIDE 20 MG TAB PO SCH ×2 (09:43→20:00)
[2020-09-01 10:07] VITALS: BMI 26.8
[2020-09-01 12:08] LABS: Glucose,Whole Blood 96 mg/dL (75-99)
[2020-09-01] MEDS: MULTIVITAMINS, THERA 1 EACH TAB PO SCH (12:19)
[2020-09-01] MEDS: FOLIC ACID 1 MG TAB PO SCH (12:19)
[2020-09-01] MEDS: OXYBUTYNIN 10 MG TAB.ER.24 PO SCH (12:20)
[2020-09-01] MEDS: THIAMINE 100 MG TAB PO SCH (12:20)
[2020-09-01] MEDS: LOPERAMIDE 2 MG CAP PO PRN ×2 (12:20→17:44)
--- NOTE | 2020-09-01 12:27 | P.CRDCN ---
History of Present Illness Consult date: 09/01/20 History of present illness: The patient is a 80-year-old female with multiple comorbid conditions, who was admitted to the hospital for weakness and fatigue. She was hypotensive on arrival and was noted to have a hemoglobin of 7.8. Cardiology was consult that for her history of atrial fibrillation. The patient did recently undergo multiple paracentesis as well as in endoscopy in early July. She was noted to have multiple esophageal varices and decompensated ALFONSO with cirrhosis. She was recently evaluated by Dr. Reynoso in the office and was instructed to continue her current regimen and follow with her core maker helper. On 08/31, she did undergo ultrasound-guided paracentesis were 6.7 L of serous fluid was removed. On exam this morning, the patient is resting comfortably in the recliner chair. She states she recently got up and ambulated to the bathroom with minimal assistance. She states her shortness of breath significantly improved after her paracentesis. No chest pain or chest pressure. No palpitations. DIAGNOSTICS: No 12 lead EKG performed Telemetry readings show persistent atrial fibrillation with heart rates in the 90s Chest x-ray shows no acute process Laboratory data shows WBC 2.9, hemoglobin 9.1 after blood transfusion, platelet 224, sodium 132, potassium 4.6, BUN 58, creatinine 1.01, AST 27, ALT 15, positive occult blood PAST MEDICAL HISTORY: Persistent atrial fibrillation, previous A. fib ablation, diabetes mellitus, hyp ertension, dyslipidemia, history of pulmonary embolism, fatty liver disease, hypothyroidism REVIEW OF SYSTEMS: No fever or chills. No cough or expectoration. No diaphoresis. Patient denies headache, dizziness, blurred vision, double vision. Patient denies any stomach discomfort. No nausea, vomiting. No hematochezia. No hematemesis. Positive for black stools. Denies dysuria or hematuria. No muscle weakness or numbness. No dizziness, lightheadedness, or vertigo. PHYSICAL EXAMINATION: This is a 80-year-old female in no apparent distress at the time of my examination. HEENT: Head is atraumatic, normocephalic. Pupils are equal, round. Sclerae anicteric. Conjunctivae are clear. Mucous membranes of the mouth are moist. Neck is supple. There is no jugular venous distention. No carotid bruit is heard. CHEST EXAMINATION: Lungs are clear to auscultation. No chest wall tenderness is noted on palpation or with deep breathing. HEART EXAMINATION: Irregular rate and rhythm. S1, S2 heard. No murmurs, gallops or rub. ABDOMEN: Soft, nontender. Bowel sounds are heard. No organomegaly noted. EXTREMITIES: 2+ peripheral pulses with no calf tenderness noted. Mild lower extremity edema. NEUROLOGIC EXAMINATION: Patient is awake, alert and oriented x3. FINAL ASSESSMENT AND PLAN: #1 acute blood loss anemia, history of esophageal varices versus gastritis #2 nonalcoholic cirrhosis of the liver #3 persistent atrial fibrillation, Eliquis on hold #4 hypertension, currently hypotensive secondary to blood loss anemia #5 dyslipidemia PLAN: We will continue holding Eliquis until cleared to gastroenterology. Continue holding lisinopril for hypotension. Patient is currently in atrial fibrillation, however her rate is recently well controlled at this time. We will resume Toprol XL if her blood pressure consistently stays elevated above 90/60 or her heart rate becomes elevated. Continue to monitor electrolytes and kidney function as she is on multiple diuretics Continue to follow closely The patient has been seen and evaluated. Plan of care has been reviewed and agreed upon by Dr Chandler. Past Medical History Past Medical History: Atrial Fibrillation, Asthma, Cancer, Diabetes Mellitus, Fibromyalgia, GERD/Reflux, Hyperlipidemia, Hypertension, Liver Disease, Osteoarthritis (OA), Pulmonary Embolus (PE), Thyroid Disorder Additional Past Medical History / Comment(s): Pt recently admitted to [facility] on 08/14/20 with decompensated liver cirrhosis 2ndary to ALFONSO with ascities/acute diarrhea and anemia with transfusion. Other hx: Nonalcoholic fatty liver, liver cirrhosis, ascities with multiple paracentesis and has albumin infusions, esophageal varicies with banding, NIDDM type II, neuropathy bilateral legs/feet, spinal stenosis/low back pain with R side radiculopathy and lately has had pain down L leg, recent bilateral lower leg edema, PE after leg fracture, overactive bladder, hypothyroid, sinus problems, vertigo, bilateral macular degeneration History of Any Multi-Drug Resistant Organisms: None Reported Past Surgical History: Adenoidectomy, Appendectomy, Back Surgery, Breast Surgery, Hysterectomy, Joint Replacement, Orthopedic Surgery, Tonsillectomy Additional Past Surgical History / Comment(s): Multiple paracentesis, lower back and cervical fusions, bilateral total knees, bilateral total shoulders, bilateral carpal tunnel releases, bilateral hand trigger finger releases, R foot bone spur removed, R leg fracture/hardware removed, R breast fatty tumor removed, EGD with esophageal varicies banded, colonoscopy, skin cancer removed, bilateral cataracts removed. Past Anesthesia/Blood Transfusion Reactions: Motion Sickness, Postoperative Nausea & Vomiting (PONV) Additional Past Anesthesia/Blood Transfusion Reaction / Comment(s): Patient received blood in 1959. Smoking Status: Former smoker - Past Family History Mother History Unknown: Yes Family Medical History: No Reported History Additional Family Medical History / Comment(s): Mother was healthy and lived to be 87yrs old. Father History Unknown: Yes Additional Family Medical History / Comment(s): Father in a MVA Medications and Allergies Home Medications Medication Instructions Recorded Confirmed Type Levothyroxine Sodium [Synthroid] 25 mcg PO DAILY@0700 03/23/14 08/31/20 History Montelukast [Singulair] 10 mg PO HS@2200 03/23/14 08/31/20 History Oxybutynin Chloride [Ditropan XL] 10 mg PO DAILY@1000 03/23/14 08/31/20 History HYDROcodone/APAP 5-325MG [Puposky 1 tab PO QID@07,10,12,16 06/13/15 08/31/20 History 5-325] Multivit-Min/FA/Lycopen/Lutein 1 tab PO DAILY@0700 06/13/15 08/31/20 History [Centrum Silver Tablet] lisinopriL [Zestril] 10 mg PO DAILY@1200 09/02/17 08/31/20 History Evolocumab [Repatha Sureclick] 140 mg SQ Q14D 03/14/20 08/31/20 History EPINEPHrine (Auto Inject) [Epipen] 0.3 mg IM ONCE PRN 04/13/20 08/31/20 History Omeprazole 40 mg PO DAILY 06/20/20 08/31/20 History Apixaban [Eliquis] 5 mg PO BID@1000,2200 #0 08/20/20 08/31/20 Rx Metoprolol Succinate [Toprol XL] 12.5 mg PO DAILY@1200 #0 08/20/20 08/31/20 Rx Albuterol Inhaler [Ventolin Hfa 1 puff INHALATION RT-Q4H PRN 08/31/20 08/31/20 History Inhaler] Cholecalciferol [Vitamin D3 (25 25 mcg PO DAILY@1000 08/31/20 08/31/20 History Mcg = 1000 Iu)] Furosemide [Lasix] 20 mg PO BID 08/31/20 08/31/20 History Ketoconazole 2% Cream [Nizoral 2%] 1 applic TOPICAL BID PRN 08/31/20 08/31/20 History Lutein 10 mg PO DAILY 08/31/20 08/31/20 History Spironolactone [Aldactone] 25 mg PO BID 08/31/20 08/31/20 History Allergies Allergy/AdvReac Type Severity Reaction Status Date / Time venom-wasp [Wasp Venom] Allergy Severe Swelling Verified 08/31/20 13:01 adhesive Allergy Unknown Rash/Hives Verified 08/31/20 13:01 amoxicillin [Amoxicillin] Allergy Unknown Rash/Hives, Verified 08/31/20 13:01 itching fenofibrate nanocrystallized Allergy Unknown Rash/Hives,joint Verified 08/31/20 13:01 [From Tricor] pain fenofibrate,micronized Allergy Unknown Rash/Hives, Verified 08/31/20 13:01 [From Tricor] joint pain hydrochlorothiazide Allergy Unknown Rash/Hives Verified 08/31/20 13:01 Neuromuscular Blockers, Allergy Unknown Rash/Hives Verified 08/31/20 13:01 Steroidal [Steroidal Neuromuscular Blockers] Penicillins Allergy Unknown Rash/Hives, Verified 08/31/20 13:01 red skin shellfish derived Allergy Unknown SKIN RED Verified 08/31/20 13:01 AND WARM simvastatin [From Zocor] Allergy Unknown Rash/Hives, Verified 08/31/20 13:01 joint pain Ovmbuzr-Bhn-Eoa Reductase Allergy Unknown Rash/Hives, Verified 08/31/20 13:01 Inhibitor joint pain venom-honey bee Allergy Unknown Swelling Verified 08/31/20 13:01 [bee venom (honey bee)] cat dander Allergy Rash/Hives Verified 08/31/20 13:01 ciprofloxacin HCl Allergy Unknown Verified 08/31/20 13:01 [From Cipro] sulfamethoxazole Allergy Rash/Hives Verified 08/31/20 13:01 talc Allergy Rash/Hives Verified 08/31/20 13:01 walnut Allergy Rash/Hives Verified 08/31/20 13:01 clarithromycin AdvReac warm and Verified 08/31/20 13:01 flushed minocycline AdvReac warm and Verified 08/31/20 13:01 flushed prednisone AdvReac Nausea Verified 08/31/20 13:01 soy AdvReac Nausea & Verified 08/31/20 13:01 Vomiting Physical Exam Vitals: Vital Signs Temp Pulse Pulse Resp BP BP BP 09/01/20 08:00 98.2 F 88 18 89/54 09/01/20 04:00 60 18 120/70 09/01/20 02:00 64 18 08/31/20 23:25 64 18 104/66 08/31/20 20:34 98.2 F 70 18 98/60 08/31/20 20:00 79 18 08/31/20 18:05 97.5 F L 79 18 104/49 08/31/20 17:55 97.5 F L 68 18 104/49 08/31/20 17:25 98 F 76 18 132/58 08/31/20 17:15 98 F 76 18 101/59 08/31/20 15:44 92 16 111/54 08/31/20 14:47 98 F 81 18 95/46 08/31/20 13:50 79 18 103/47 08/31/20 12:50 68 18 99/45 08/31/20 12:29 85 18 109/47 08/31/20 12:10 97.2 F L 71 18 106/58 Pulse Ox 09/01/20 08:00 100 09/01/20 04:00 95 09/01/20 02:00 08/31/20 23:25 96 08/31/20 20:34 95 08/31/20 20:00 08/31/20 18:05 100 08/31/20 17:55 98 08/31/20 17:25 100 08/31/20 17:15 08/31/20 15:44 100 08/31/20 14:47 98 08/31/20 13:50 99 08/31/20 12:50 100 08/31/20 12:29 100 08/31/20 12:10 100 Intake and Output 08/31/20 09/01/20 09/01/20 22:59 06:59 14:59 Intake Total 550 550 Output Total 750 500 Balance 550 -200 -500 Intake: Oral 240 240 Blood Product 310 310 Rc As-1 Unit 310 [id number] Output: Urine 750 500 Other: Voiding Method Toilet # Voids 1 1 # Bowel Movements 3 1 Weight 77.111 kg 68.6 kg 68.6 kg Results 09/01/20 09:17 09/01/20 04:30 Cardiac Enzymes 08/31/20 Range/Units 12:27 AST 29 (14-36) U/L Coagulation 08/31/20 Range/Units 13:09 PT 11.7 (9.0-12.0) sec APTT 23.8 (22.0-30.0) sec CBC 08/31/20 08/31/20 08/31/20 Range/Units 12:27 15:47 21:53 WBC 5.2 4.7 4.1 (3.8-10.6) k/uL RBC 3.04 L 3.15 L 3.63 L (3.80-5.40) m/uL Hgb 7.8 L 7.7 L 9.6 L D (11.4-16.0) gm/dL Hct 24.3 L 25.9 L 30.1 L (34.0-46.0) % Plt Count 245 269 244 (150-450) k/uL 09/01/20 09/01/20 Range/Units 04:30 09:17 WBC 2.9 L 4.4 (3.8-10.6) k/uL RBC 3.45 L 3.65 L (3.80-5.40) m/uL Hgb 9.1 L 9.6 L (11.4-16.0) gm/dL Hct 29.3 L 30.2 L (34.0-46.0) % Plt Count 224 240 (150-450) k/uL Comprehensive Metabolic Panel 08/31/20 09/01/20 Range/Units 12:27 04:30 Sodium 131 L 132 L (137-145) mmol/L Potassium 4.7 4.6 (3.5-5.1) mmol/L Chloride 104 108 H (98-107) mmol/L Carbon Dioxide 17 L 16 L (22-30) mmol/L BUN 78 H 58 H (7-17) mg/dL Creatinine 1.47 H 1.01 (0.52-1.04) mg/dL Glucose 108 H 95 (74-99) mg/dL Calcium 8.8 8.7 (8.4-10.2) mg/dL AST 29 (14-36) U/L ALT 15 (4-34) U/L Alkaline Phosphatase 61 (38-126) U/L Total Protein 6.0 L (6.3-8.2) g/dL Albumin 3.9 (3.5-5.0) g/dL Current Medications Generic Name Dose Route Start Last Admin Trade Name Freq PRN Reason Stop Dose Admin Acetaminophen 650 mg 08/31/20 13:47 Acetaminophen Tab 325 Mg Tab PO Q6HR PRN Mild Pain or Fever > 100.5 Hydrocodone Bitart/Acetaminophen 1 each 09/01/20 07:00 09/01/20 09:38 Hydrocodone/Apap 5-325mg 1 Each Tab PO 1 each QID@0700,1000,1200,1600 [facility] Administration Albuterol Sulfate 1 puff 08/31/20 16:05 Albuterol Hfa Inhaler INHALATION RT-Q4H PRN Shortness Of Breath Alprazolam 0.25 mg 08/31/20 16:07 08/31/20 23:55 Alprazolam 0.25 Mg Tab PO 0.25 mg TID PRN Administration Anxiety Cholecalciferol 25 mcg 09/01/20 10:00 09/01/20 09:38 Cholecalciferol 25 Mcg (1000 Iu) Tablet PO 25 mcg DAILY@1000 [facility] Administration Clotrimazole 1 applic 08/31/20 16:05 Clotrimazole 1% Cream 15 Gm Tube TOPICAL BID PRN Rash Folic Acid 1 mg 09/01/20 12:00 Folic Acid 1 Mg Tab PO DAILY@1200 [facility] Furosemide 20 mg 08/31/20 21:00 09/01/20 09:43 Furosemide 20 Mg Tab PO Not Given BID [facility] Insulin Aspart 0 unit 08/31/20 17:30 09/01/20 06:24 Insulin Aspart (Novolog) 100 Unit/Ml Vial SQ Not Given ACHS [facility] Protocol Levothyroxine Sodium 25 mcg 09/01/20 06:30 09/01/20 06:23 Levothyroxine 25 Mcg Tab PO 25 mcg DAILY@0630 [facility] Administration Montelukast Sodium 10 mg 08/31/20 22:00 08/31/20 21:09 Montelukast 10 Mg Tab PO 10 mg HS@2200 [facility] Administration Multivitamins 1 each 09/01/20 12:00 Multivitamins, Thera 1 Each Tab PO DAILY@1200 [facility] Naloxone HCl 0.2 mg 08/31/20 13:47 Naloxone 0.4 Mg/Ml 1 Ml Vial IV Q2M PRN Opioid Reversal Oxybutynin Chloride 10 mg 09/01/20 10:00 Oxybutynin 10 Mg Tab.Er.24 PO DAILY@1000 [facility] Pantoprazole Sodium 40 mg 08/31/20 21:00 09/01/20 09:37 Pantoprazole 40 Mg/10 Ml Vial IVP 40 mg BID [facility] Administration Spironolactone 25 mg 08/31/20 21:00 09/01/20 09:37 Spironolactone 25 Mg Tab PO 25 mg BID [facility] Administration Thiamine HCl 100 mg 09/01/20 12:00 Thiamine 100 Mg Tab PO DAILY@1200 [facility] Intake and Output 08/31/20 09/01/20 09/01/20 22:59 06:59 14:59 Intake Total 550 550 Output Total 750 500 Balance 550 -200 -500 Intake: Oral 240 240 Blood Product 310 310 Rc As-1 Unit 310 [id number] Output: Urine 750 500 Other: Voiding Method Toilet # Voids 1 1 # Bowel Movements 3 1 Weight 77.111 kg 68.6 kg 68.6 kg Patient Weight 09/02/20 06:59 Weight 68.6 kg 09/01/20 09:17 09/01/20 04:30
[2020-09-01 16:07] LABS: Anisocytosis Slight; HCT 32.3 % (34.0-46.0); HGB 9.8 gm/dL (11.4-16.0); Hypochromasia Marked; MCH 26.6 pg (25.0-35.0); MCHC 30.4 g/dL (31.0-37.0); MCV 87.6 fL (80.0-100.0); Mean Platelet Volume 8.6; Platelet Count 244 k/uL (150-450); Poikilocytosis Slight; RBC 3.69 m/uL (3.80-5.40); RDW 19.5 % (11.5-15.5); WBC 4.8 k/uL (3.8-10.6)
[2020-09-01 17:24] LABS: Glucose,Whole Blood 92 mg/dL (75-99)
--- NOTE | 2020-09-01 19:54 | PN ---
PROGRESS NOTE DATE OF SERVICE: 09/01/2020 This 80-year-old woman admitted with diarrhea and possible gastrointestinal bleed and low blood pressures is being closely monitored at this time. The optics engineer has seen the patient. Gastroenterology evaluation in progress. Cardiology recommended hold the Eliquis and continue to hold the lisinopril, hypotension and continue to monitor. The patient has continued diarrhea. C diff has been negative. The most recent hemoglobin is found to be 9.8. The patient's baseline hemoglobin was also low. The patient received one unit transfusion for symptomatic anemia. Past medical history reviewed. REVIEW OF SYSTEMS: CARDIOVASCULAR: No angina. RESPIRATORY: As mentioned earlier. GI as mentioned earlier. : No dysuria. NERVOUS SYSTEM: No numbness or weakness. MEDICATIONS: Reviewed and include Tylenol. [place]. Ventolin. Xanax, vitamin D3, folic acid, Imodium. Doses are reviewed. PHYSICAL EXAM: Patient is alert and oriented times three. Pulse 70. Blood pressure 113/70, respiration 17, temperature 98 degrees. Pulse ox 100 percent on room air. HEENT: Conjunctivae pale. NECK: No JVD. CARDIOVASCULAR: S1, S2 muffled. RESPIRATORY SYSTEM: Breath sounds diminished at the bases. Scattered rhonchi. No crackles. ABDOMEN: Soft, nontender. LEGS: No edema. No swelling. NERVOUS SYSTEM: no focal deficits. LAB STUDIES: WBC 4.8, hemoglobin 9.8, sodium 132. UA noted. Stool OB is positive. COVID-19 is negative. ASSESSMENT: 1. Acute upper gastrointestinal bleeding with acute blood loss anemia, symptomatic, possibly secondary from gastritis. 2. Non alcoholic cirrhosis and/or gastric varices. 3. Known alcoholic cirrhosis of liver. 4. Status post blood transfusion for symptomatic anemia. 5. Hyponatremia. 6. Hypotension multifactorial. 7. Acute renal failure with acute tubular necrosis with prerenal uremia. 8. Atrial fibrillation history. 9. Stool OB positive. 10.History of asthma. 11.History of diabetes type 2. 12.History of fibromyalgia. 13.History of gastroesophageal reflux disease. 14.Hypertension. 15.Hyperlipidemia. 16.History of degenerative joint disease. 17.History of pulmonary embolism. 18.History of ascites and multiple paracentesis. 19.History of radiculopathy, right. 20.History of appendectomy. 21.History of back surgery. 22.Remote history of nicotine dependence. RECOMMENDATIONS AND DISCUSSION: Recommend to continue current medications, symptomatic treatment. Otherwise, as mentioned earlier, we will await gastroenterology input. If C difficile is negative, Questran p.r.n. or Imodium p.r.n. Repeat labs. Creatinine has improved. Guarded prognosis because of multiple complex medical issues. Hold off the Eliquis and lisinopril. Monitor blood sugars closely. Guarded prognosis. Further recommendations to follow. MMODL / IJN: [id number] / [place]
[2020-09-01] MEDS: MONTELUKAST 10 MG TAB PO SCH (20:00)
[2020-09-01 21:10] LABS: Glucose,Whole Blood 160 mg/dL (75-99)
[2020-09-01 22:15] LABS: Anisocytosis Slight; HCT 28.9 % (34.0-46.0); HGB 9.1 gm/dL (11.4-16.0); Hypochromasia Marked; MCH 26.5 pg (25.0-35.0); MCHC 31.5 g/dL (31.0-37.0); MCV 84.1 fL (80.0-100.0); Mean Platelet Volume 7.7; Microcytosis Slight; Platelet Count 214 k/uL (150-450); Poikilocytosis Slight; RBC 3.43 m/uL (3.80-5.40); RDW 19.9 % (11.5-15.5); WBC 4.7 k/uL (3.8-10.6)
[2020-09-02 04:51] LABS: Anisocytosis Slight; HCT 28.5 % (34.0-46.0); Hypochromasia Marked; MCH 26.8 pg (25.0-35.0); MCHC 31.7 g/dL (31.0-37.0); MCV 84.4 fL (80.0-100.0); Mean Platelet Volume 9.1; Microcytosis Slight; Platelet Count 213 k/uL (150-450); Poikilocytosis Slight; RBC 3.37 m/uL (3.80-5.40); RDW 19.7 % (11.5-15.5); WBC 3.6 k/uL (3.8-10.6)
[2020-09-02 05:13] LABS: Calcium 8.5 mg/dL (8.4-10.2); Potassium 4.9 mmol/L (3.5-5.1)
[2020-09-02] MEDS: LEVOTHYROXINE 25 MCG TAB PO SCH (05:59)
[2020-09-02] MEDS: INSULIN ASPART (NovoLOG) 100 UNIT/ML VIAL SQ SCH ×4 (06:07→20:16)
[2020-09-02 06:36] LABS: Glucose,Whole Blood 114 mg/dL (75-99)
--- NOTE | 2020-09-02 08:09 | P.CONS ---
History of Present Illness - Reason for Consult Consult date: 09/01/20 Anemia, cirrhosis Requesting physician: Bg Ayon - Chief Complaint Low blood pressure - History of Present Illness 80-year-old female with multiple medical comorbidities including hypothyroidism, non-alcoholic liver cirrhosis with decompensation including ascites and varices previously banded who presented to the hospital due to low blood pressure. The patient was seen in outpatient setting and has 6.8 L of ascitic fluid removed via paracentesis. Subsequently the patient was hypotensive and brought to the emergency department for further evaluation. The patient has been seen in the outpatient setting for EGD including banding of varices in the past on 2 occasions with last EGD on 08/07/2020 with findings of moderate antral gastritis and esophageal varices with band ligation in 2 bands placed at that time. On questioning the patient reports that she has been having some loose bowel movements ordered for the past 2-3 weeks. She has some cramping in association with her bowel movements described as occurring in the periumbilical region and lower abdomen. She denies any gross blood per rectum but previously felt that the bowel movements were somewhat dark she is now reporting a normal brown bowel movement today. Hemoglobin on presentation 7.8 subsequently found to be 9.6 after transfusion and currently stable. Testing for Clostridium difficile toxin was negative. Other laboratory evaluation significant for total bilirubin 0.3, alkaline phosphatase 61, AST 29 and ALT 15. Review of Systems REVIEW OF SYSTEMS: CONSTITUTIONAL: Denies any fevers, chills, weight change or fatigue. CARDIOVASCULAR: Denies any chest pain, palpitations high or low blood pressures at this time but did have hypotension on presentation RESPIRATORY: Denies any shortness of breath, hemoptysis or cough. GENITOURINARY: No dysuria or hematuria. MUSCULOSKELETAL: No weakness reported. SKIN: Denies any new rashes or lesions, jaundice or pallor. PSYCHIATRIC: Denies any depression or anxiety. NEUROLOGY: Denies headache, denies any new focal deficits. EARS/NOSE/THROAT: No recent hearing change, congestion, nasal discharge or sore throat. EYES: No pain in eyes, discharge or change in vision. GASTROINTESTINAL: As per HPI. Past Medical History Past Medical History: Atrial Fibrillation, Asthma, Cancer, Diabetes Mellitus, Fibromyalgia, GERD/Reflux, Hyperlipidemia, Hypertension, Liver Disease, Osteoarthritis (OA), Pulmonary Embolus (PE), Thyroid Disorder Additional Past Medical History / Comment(s): Pt recently admitted to [facility] on 08/14/20 with decompensated liver cirrhosis 2ndary to ALFONSO with ascities/acute diarrhea and anemia with transfusion. Other hx: Nonalcoholic fatty liver, liver cirrhosis, ascities with multiple paracentesis and has albumin infusions, esophageal varicies with banding, NIDDM type II, neuropathy bilateral legs/feet, spinal stenosis/low back pain with R side radiculopathy and lately has had pain down L leg, recent bilateral lower leg edema, PE after leg fracture, overactive bladder, hypothyroid, sinus problems, vertigo, bilateral macular degeneration History of Any Multi-Drug Resistant Organisms: None Reported Past Surgical History: Adenoidectomy, Appendectomy, Back Surgery, Breast Surgery, Hysterectomy, Joint Replacement, Orthopedic Surgery, Tonsillectomy Additional Past Surgical History / Comment(s): Multiple paracentesis, lower back and cervical fusions, bilateral total knees, bilateral total shoulders, bilateral carpal tunnel releases, bilateral hand trigger finger releases, R foot bone spur removed, R leg fracture/hardware removed, R breast fatty tumor removed, EGD with esophageal varicies banded, colonoscopy, skin cancer removed, bilateral cataracts removed. Past Anesthesia/Blood Transfusion Reactions: Motion Sickness, Postoperative Nausea & Vomiting (PONV) Additional Past Anesthesia/Blood Transfusion Reaction / Comm: Patient received blood in 1958. Smoking Status: Former smoker - Past Family History Mother History Unknown: Yes Family Medical History: No Reported History Additional Family Medical History / Comment(s): Mother was healthy and lived to be 87yrs old. Father History Unknown: Yes Additional Family Medical History / Comment(s): Father in a MVA Medications and Allergies Home Medications Medication Instructions Recorded Confirmed Type Levothyroxine Sodium [Synthroid] 25 mcg PO DAILY@0700 03/23/14 08/31/20 History Montelukast [Singulair] 10 mg PO HS@2200 03/23/14 08/31/20 History Oxybutynin Chloride [Ditropan XL] 10 mg PO DAILY@1000 03/23/14 08/31/20 History HYDROcodone/APAP 5-325MG [[place] 1 tab PO QID@07,10,12,16 06/13/15 08/31/20 History 5-325] Multivit-Min/FA/Lycopen/Lutein 1 tab PO DAILY@0700 06/13/15 08/31/20 History [Centrum Silver Tablet] lisinopriL [Zestril] 10 mg PO DAILY@1200 09/02/17 08/31/20 History Evolocumab [Repatha Sureclick] 140 mg SQ Q14D 03/14/20 08/31/20 History EPINEPHrine (Auto Inject) [Epipen] 0.3 mg IM ONCE PRN 04/13/20 08/31/20 History Omeprazole 40 mg PO DAILY 06/20/20 08/31/20 History Apixaban [Eliquis] 5 mg PO BID@1000,2200 #0 08/20/20 08/31/20 Rx Metoprolol Succinate [Toprol XL] 12.5 mg PO DAILY@1200 #0 08/20/20 08/31/20 Rx Albuterol Inhaler [Ventolin Hfa 1 puff INHALATION RT-Q4H PRN 08/31/20 08/31/20 History Inhaler] Cholecalciferol [Vitamin D3 (25 25 mcg PO DAILY@1000 08/31/20 08/31/20 History Mcg = 1000 Iu)] Furosemide [Lasix] 20 mg PO BID 08/31/20 08/31/20 History Ketoconazole 2% Cream [Nizoral 2%] 1 applic TOPICAL BID PRN 08/31/20 08/31/20 History Lutein 10 mg PO DAILY 08/31/20 08/31/20 History Spironolactone [Aldactone] 25 mg PO BID 08/31/20 08/31/20 History Allergies Allergy/AdvReac Type Severity Reaction Status Date / Time venom-wasp [Wasp Venom] Allergy Severe Swelling Verified 08/31/20 13:01 adhesive Allergy Unknown Rash/Hives Verified 08/31/20 13:01 amoxicillin [Amoxicillin] Allergy Unknown Rash/Hives, Verified 08/31/20 13:01 itching fenofibrate nanocrystallized Allergy Unknown Rash/Hives,joint Verified 08/31/20 13:01 [From Tricor] pain fenofibrate,micronized Allergy Unknown Rash/Hives, Verified 08/31/20 13:01 [From Tricor] joint pain hydrochlorothiazide Allergy Unknown Rash/Hives Verified 08/31/20 13:01 Neuromuscular Blockers, Allergy Unknown Rash/Hives Verified 08/31/20 13:01 Steroidal [Steroidal Neuromuscular Blockers] Penicillins Allergy Unknown Rash/Hives, Verified 08/31/20 13:01 red skin shellfish derived Allergy Unknown SKIN RED Verified 08/31/20 13:01 AND WARM simvastatin [From Zocor] Allergy Unknown Rash/Hives, Verified 08/31/20 13:01 joint pain [id number] Reductase Allergy Unknown Rash/Hives, Verified 08/31/20 13:01 Inhibitor joint pain venom-honey bee Allergy Unknown Swelling Verified 08/31/20 13:01 [bee venom (honey bee)] cat dander Allergy Rash/Hives Verified 08/31/20 13:01 ciprofloxacin HCl Allergy Unknown Verified 08/31/20 13:01 [From Cipro] sulfamethoxazole Allergy Rash/Hives Verified 08/31/20 13:01 talc Allergy Rash/Hives Verified 08/31/20 13:01 walnut Allergy Rash/Hives Verified 08/31/20 13:01 clarithromycin AdvReac warm and Verified 08/31/20 13:01 flushed minocycline AdvReac warm and Verified 08/31/20 13:01 flushed prednisone AdvReac Nausea Verified 08/31/20 13:01 soy AdvReac Nausea & Verified 08/31/20 13:01 Vomiting Physical Exam Vitals: Vital Signs Temp Pulse Pulse Resp BP BP Pulse Ox 09/01/20 04:00 60 18 120/70 95 09/01/20 02:00 64 18 08/31/20 23:25 64 18 104/66 96 08/31/20 20:34 98.2 F 70 18 98/60 95 08/31/20 20:00 79 18 08/31/20 18:05 97.5 F L 79 18 104/49 100 08/31/20 17:55 97.5 F L 68 18 104/49 98 08/31/20 17:25 98 F 76 18 132/58 100 08/31/20 17:15 98 F 76 18 101/59 08/31/20 15:44 92 16 111/54 100 08/31/20 14:47 98 F 81 18 95/46 98 08/31/20 13:50 79 18 103/47 99 08/31/20 12:50 68 18 99/45 100 08/31/20 12:29 85 18 109/47 100 08/31/20 12:10 97.2 F L 71 18 106/58 100 Intake and Output 08/31/20 09/01/20 09/01/20 22:59 06:59 14:59 Intake Total 550 550 Output Total 750 Balance 550 -200 Intake: Oral 240 240 Blood Product 310 310 Rc As-1 Unit 310 [id number] Output: Urine 750 Other: # Voids 1 # Bowel Movements 3 Weight 77.111 kg 68.6 kg 68.6 kg On physical examination, patient appears comfortable in no apparent distress. HEAD: Normocephalic, atraumatic. EYES: No scleral icterus. No conjunctival injection. MOUTH: No lesions, tongue midline. NECK: Trachea midline, no gross abnormalities. CHEST: Clear to auscultation with no wheezing or rhonchi appreciated. HEART: S1-S2 appreciated. ABDOMEN: Soft, mildly distended. Bowel sounds are positive. No organomegaly. No guarding or rigidity. EXTREMITIES: No pedal edema. SKIN: No rashes, no jaundice. NEUROLOGIC: Alert and oriented x3, no asterixis. No focal deficits. Results CBC & Chem 7: 09/02/20 03:29 09/02/20 03:29 Labs: Abnormal Lab Results - Last 24 Hours (Table) 08/31/20 08/31/20 08/31/20 Range/Units 12:27 12:27 13:09 WBC (3.8-10.6) k/uL RBC 3.04 L (3.80-5.40) m/uL Hgb 7.8 L (11.4-16.0) gm/dL Hct 24.3 L (34.0-46.0) % MCV 79.9 L (80.0-100.0) fL MCH (25.0-35.0) pg MCHC (31.0-37.0) g/dL RDW 19.6 H (11.5-15.5) % Lymphocytes # 0.5 L (1.0-4.8) k/uL Sodium 131 L (137-145) mmol/L Chloride (98-107) mmol/L Carbon Dioxide 17 L (22-30) mmol/L BUN 78 H (7-17) mg/dL Creatinine 1.47 H (0.52-1.04) mg/dL Glucose 108 H (74-99) mg/dL POC Glucose (mg/dL) (75-99) mg/dL Total Protein 6.0 L (6.3-8.2) g/dL Stool Occult Blood Positive H (Negative) Crossmatch 08/31/20 08/31/20 08/31/20 Range/Units 15:47 15:47 17:05 WBC (3.8-10.6) k/uL RBC 3.15 L (3.80-5.40) m/uL Hgb 7.7 L (11.4-16.0) gm/dL Hct 25.9 L (34.0-46.0) % MCV (80.0-100.0) fL MCH 24.5 L (25.0-35.0) pg MCHC 29.9 L (31.0-37.0) g/dL RDW 19.1 H (11.5-15.5) % Lymphocytes # (1.0-4.8) k/uL Sodium (137-145) mmol/L Chloride (98-107) mmol/L Carbon Dioxide (22-30) mmol/L BUN (7-17) mg/dL Creatinine (0.52-1.04) mg/dL Glucose (74-99) mg/dL POC Glucose (mg/dL) 104 H (75-99) mg/dL Total Protein (6.3-8.2) g/dL Stool Occult Blood (Negative) Crossmatch See Detail 08/31/20 08/31/20 09/01/20 Range/Units 19:56 21:53 04:30 WBC 2.9 L (3.8-10.6) k/uL RBC 3.63 L 3.45 L (3.80-5.40) m/uL Hgb 9.6 L D 9.1 L (11.4-16.0) gm/dL Hct 30.1 L 29.3 L (34.0-46.0) % MCV (80.0-100.0) fL MCH (25.0-35.0) pg MCHC 30.9 L (31.0-37.0) g/dL RDW 20.2 H 19.7 H (11.5-15.5) % Lymphocytes # 0.5 L 0.4 L (1.0-4.8) k/uL Sodium (137-145) mmol/L Chloride (98-107) mmol/L Carbon Dioxide (22-30) mmol/L BUN (7-17) mg/dL Creatinine (0.52-1.04) mg/dL Glucose (74-99) mg/dL POC Glucose (mg/dL) 121 H (75-99) mg/dL Total Protein (6.3-8.2) g/dL Stool Occult Blood (Negative) Crossmatch 09/01/20 09/01/20 Range/Units 04:30 09:17 WBC (3.8-10.6) k/uL RBC 3.65 L (3.80-5.40) m/uL Hgb 9.6 L (11.4-16.0) gm/dL Hct 30.2 L (34.0-46.0) % MCV (80.0-100.0) fL MCH (25.0-35.0) pg MCHC (31.0-37.0) g/dL RDW 19.9 H (11.5-15.5) % Lymphocytes # (1.0-4.8) k/uL Sodium 132 L (137-145) mmol/L Chloride 108 H (98-107) mmol/L Carbon Dioxide 16 L (22-30) mmol/L BUN 58 H (7-17) mg/dL Creatinine (0.52-1.04) mg/dL Glucose (74-99) mg/dL POC Glucose (mg/dL) (75-99) mg/dL Total Protein (6.3-8.2) g/dL Stool Occult Blood (Negative) Crossmatch Chest x-ray: report reviewed (No acute process seen on chest x-ray.) Assessment and Plan (1) Liver cirrhosis secondary to ALFONSO (nonalcoholic steatohepatitis) Narrative/Plan: 80-year-old female with multiple medical comorbidities including decompensated liver cirrhosis with ascites and esophageal varices brought to the hospital due to hypotension. Found to be anemic with hemoglobin of 7.8 patient was t ransfused and hemoglobin has remained stable at 9.6 since that time. She did have some complaints of diarrhea over the past 2-3 weeks prior to presentation with some associated abdominal cramping. Testing for Clostridium difficile negative. Previously she had noted some dark bowel movements however she reports that there are normal in color today. The patient's last EGD was on 08/07/2020 with no peptic ulcer disease but gastritis and banding of esophageal varices 2 at that time. Current Visit: Yes Status: Acute Code(s): K75.81 - NONALCOHOLIC STEATOHEPATITIS (ALFONSO); K74.60 - UNSPECIFIED CIRRHOSIS OF LIVER SNOMED Code(s): 187106988 (2) Ascites Current Visit: Yes Status: Acute Code(s): R18.8 - OTHER ASCITES SNOMED Code(s): 680541188 (3) Abdominal distention Current Visit: No Status: Acute Code(s): R14.0 - ABDOMINAL DISTENSION (GASEOUS) SNOMED Code(s): 08165966 (4) Diarrhea Current Visit: No Status: Acute Code(s): R19.7 - DIARRHEA, UNSPECIFIED SNOMED Code(s): 75477146 Plan: Supportive care Okay for sodium restricted diet as tolerated Continue to monitor CBC, BMP, LFTs Continue to monitor hemoglobin and hematocrit and transfuse as needed Testing for Clostridium difficile negative Okay for antidiarrheal as needed Continue Aldactone and Lasix therapy Can consider the addition of Midrin if patient is hypotensive, however currently blood pressures are improved No plans for endoscopy at this time, however the patient has further fall in hemoglobin or signs or symptoms of GI bleeding will reevaluate at that time Thank you for allowing us to participate in the care of the patient we will continue to follow
[2020-09-02] MEDS: FUROSEMIDE 20 MG TAB PO SCH ×2 (08:10→20:15)
[2020-09-02] MEDS: SPIRONOLACTONE 25 MG TAB PO SCH ×2 (08:19→20:15)
[2020-09-02] MEDS: PANTOPRAZOLE 40 MG/10 ML VIAL IVP SCH ×2 (08:19→20:17)
[2020-09-02] MEDS: LOPERAMIDE 2 MG CAP PO PRN (08:19)
[2020-09-02] MEDS: CHOLECALCIFEROL 25 MCG (1000 IU) TABLET PO SCH (08:19)
[2020-09-02] MEDS: HYDROcodone/APAP 5-325MG 1 EACH TAB PO SCH ×4 (08:19→21:59)
[2020-09-02 09:25] LABS: Anisocytosis Slight; HCT 30.8 % (34.0-46.0); HGB 9.7 gm/dL (11.4-16.0); Hypochromasia Marked; MCH 26.2 pg (25.0-35.0); MCHC 31.4 g/dL (31.0-37.0); MCV 83.4 fL (80.0-100.0); Mean Platelet Volume 8.5; Microcytosis Slight; Platelet Count 250 k/uL (150-450); Poikilocytosis Slight; RBC 3.69 m/uL (3.80-5.40); RDW 19.8 % (11.5-15.5); WBC 5.2 k/uL (3.8-10.6)
[2020-09-02 11:53] LABS: Glucose,Whole Blood 106 mg/dL (75-99)
[2020-09-02] MEDS: FOLIC ACID 1 MG TAB PO SCH (12:25)
[2020-09-02] MEDS: THIAMINE 100 MG TAB PO SCH (12:25)
[2020-09-02] MEDS: MULTIVITAMINS, THERA 1 EACH TAB PO SCH (12:25)
[2020-09-02] MEDS: OXYBUTYNIN 10 MG TAB.ER.24 PO SCH (12:25)
--- NOTE | 2020-09-02 12:28 | P.PN ---
Subjective Progress Note Date: 09/02/20 The patient was interviewed and examined sitting up in bed. She states she continues to breathe well. No chest pain or chest pressure. No palpitations, dizziness, or lightheadedness. GENERAL: Well-appearing, well-nourished and in no acute distress. NECK: Supple without JVD or thyromegaly. LUNGS: Breath sounds clear to auscultation bilaterally. Respiration equal and unlabored. No wheezes, rales or rhonchi. HEART: irregular rate and rhythm without murmurs, rubs or gallops. S1 and S2 heard. EXTREMITIES: Normal range of motion. No clubbing or cyanosis. Peripheral pulses intact and strong. VITALS: Blood pressure 98/63, heart rate 76, respiratory rate 17, temperature 97.8F, SpO2 100% TELEMETRY: Persistent atrial fibrillation with heart rates in the 70s LABS: WBC 5.2, hemoglobin 9.7, hematocrit 30.8, platelet 250, sodium 128, potassium 4.9, BUN 39, creatinine 0.88 IMPRESSION: #1 acute blood loss anemia, history of esophageal varices versus gastritis #2 nonalcoholic cirrhosis of the liver #3 persistent atrial fibrillation, Eliquis on hold #4 hypertension, currently hypotensive secondary to blood loss anemia #5 dyslipidemia #6 hyponatremia PLAN: Continue to hold Eliquis until cleared by gastroenterology Continue to hold lisinopril for hypotension Consider resuming Toprol XL if her blood pressure maintains greater than 90/60 or heart rate becomes elevated Continue diuretic therapy Freewater restriction for hyponatremia Objective - Vital Signs Vital signs: Vital Signs Temp 97.9 F 09/02/20 11:44 Pulse 79 09/02/20 11:44 Resp 18 09/02/20 11:44 BP 89/53 09/02/20 11:44 Pulse Ox 99 09/02/20 11:44 Intake & Output 09/01/20 09/02/20 09/02/20 18:59 06:59 18:59 Intake Total 960 480 360 Output Total 800 300 Balance 160 180 360 Weight 68.6 kg 69.9 kg Intake: Oral 960 480 360 Output: Urine 800 300 Other: Voiding Method Toilet Toilet Toilet # Voids 1 1 # Bowel Movements 2 - Labs CBC & Chem 7: 09/02/20 09:15 09/02/20 03:29 Labs: Abnormal Lab Results - Last 24 Hours (Table) 09/01/20 09/01/20 09/01/20 Range/Units 15:41 20:43 21:52 WBC (3.8-10.6) k/uL RBC 3.69 L 3.43 L (3.80-5.40) m/uL Hgb 9.8 L 9.1 L (11.4-16.0) gm/dL Hct 32.3 L 28.9 L (34.0-46.0) % MCHC 30.4 L (31.0-37.0) g/dL RDW 19.5 H 19.9 H (11.5-15.5) % Sodium (137-145) mmol/L Carbon Dioxide (22-30) mmol/L BUN (7-17) mg/dL POC Glucose (mg/dL) 160 H (75-99) mg/dL 09/02/20 09/02/20 09/02/20 Range/Units 03:29 03:29 06:07 WBC 3.6 L (3.8-10.6) k/uL RBC 3.37 L (3.80-5.40) m/uL Hgb 9.0 L (11.4-16.0) gm/dL Hct 28.5 L (34.0-46.0) % MCHC (31.0-37.0) g/dL RDW 19.7 H (11.5-15.5) % Sodium 128 L (137-145) mmol/L Carbon Dioxide 16 L (22-30) mmol/L BUN 39 H (7-17) mg/dL POC Glucose (mg/dL) 114 H (75-99) mg/dL 09/02/20 09/02/20 Range/Units 09:15 11:52 WBC (3.8-10.6) k/uL RBC 3.69 L (3.80-5.40) m/uL Hgb 9.7 L (11.4-16.0) gm/dL Hct 30.8 L (34.0-46.0) % MCHC (31.0-37.0) g/dL RDW 19.8 H (11.5-15.5) % Sodium (137-145) mmol/L Carbon Dioxide (22-30) mmol/L BUN (7-17) mg/dL POC Glucose (mg/dL) 106 H (75-99) mg/dL
--- NOTE | 2020-09-02 14:18 | PN ---
PROGRESS NOTE DATE OF SERVICE: 09/02/2020 This 80-year-old woman who was admitted with acute upper gastrointestinal bleeding and known alcoholic cirrhosis, also. The patient recently had EGD. Hemoglobin is 9.7. No active bleeding was noted. No chest pain. No palpitations. No fever. PHYSICAL EXAMINATION: Alert and oriented x3. Blood pressure 89/50, respiration 18, temperature 97.9, pulse ox 98% on room air. HEENT: Conjunctivae normal. NECK: No JVD. RESPIRATORY SYSTEM: Breath sounds diminished at the bases. No rhonchi. No crackles. ABDOMEN: Soft. Obese, minimal ascites. LEGS are no edema. No swelling. NERVOUS SYSTEM: No focal deficits. LABS: WBC 5.2, hemoglobin 10.7. ASSESSMENT: 1. Acute upper gastrointestinal bleeding with acute blood loss anemia, symptomatic, possibly secondary from gastritis. 2. Known alcoholic cirrhosis of the liver and gastric varices. 3. Status post blood transfusion for symptomatic anemia. 4. Hyponatremia. 5. Hypotension, multifactorial. 6. Acute renal failure with acute tubular necrosis with prerenal uremia. 7. Atrial fibrillation history. 8. Stool OB positive. 9. History of asthma. 10.History of diabetes type 2. 11.History of fibromyalgia. 12.Gastroesophageal reflux disease. 13.Hypertension. 14.Hyperlipidemia. 15.History of degenerative joint disease. 16.History of pulmonary embolism. 17.History of ascites and multiple paracenteses. 18.History of radiculopathy, right. 19.History of appendectomy. 20.History of back surgery. 21.Remote history of nicotine dependence. RECOMMENDATIONS AND DISCUSSION: Recommend to continue current medications, and symptomatic treatment. Repeat labs. Otherwise, at this time, I recommend continue with current medications. Monitor blood pressure closely. Check 8:00 am cortisol. Guarded prognosis because of multiple complex medical issues. Further recommendations to follow. I would also recommend orthostatic vitals. MMODL / IJN: [id number] /
[2020-09-02 15:21] LABS: Anisocytosis Slight; HCT 29.6 % (34.0-46.0); HGB 9.4 gm/dL (11.4-16.0); Hypochromasia Moderate; MCH 26.3 pg (25.0-35.0); MCHC 31.6 g/dL (31.0-37.0); MCV 83.1 fL (80.0-100.0); Mean Platelet Volume 8.7; Microcytosis Slight; Platelet Count 248 k/uL (150-450); Poikilocytosis Slight; RBC 3.57 m/uL (3.80-5.40); WBC 4.4 k/uL (3.8-10.6)
--- NOTE | 2020-09-02 16:25 | P.PN ---
Subjective Progress Note Date: 09/02/20 Principal diagnosis: decompensated Alfonso cirrhosis the patient is seen sitting bedside today. She is reporting bowel movements are improved. Tolerating diet. Objective - Vital Signs Vital signs: Vital Signs Temp 98.7 F 09/02/20 04:00 Pulse 91 09/02/20 07:20 Resp 18 09/02/20 07:20 BP 98/58 09/02/20 04:00 Pulse Ox 97 09/02/20 04:00 Intake & Output 09/01/20 09/02/20 09/02/20 18:59 06:59 18:59 Intake Total 960 480 360 Output Total 800 300 Balance 160 180 360 Weight 68.6 kg 69.9 kg Intake: Oral 960 480 360 Output: Urine 800 300 Other: Voiding Method Toilet Toilet Toilet # Voids 1 1 # Bowel Movements 2 - Exam On physical examination, patient appears comfortable in no apparent distress. HEAD: Normocephalic, atraumatic. EYES: No scleral icterus. No conjunctival injection. MOUTH: No lesions, tongue midline. NECK: Trachea midline, no gross abnormalities. ABDOMEN: Soft, mildly distended. Bowel sounds are positive. No organomegaly. No guarding or rigidity. EXTREMITIES: No pedal edema. SKIN: No rashes, no jaundice. NEUROLOGIC: Alert and oriented x3. No focal deficits. - Labs CBC & Chem 7: 09/02/20 14:49 09/02/20 03:29 Labs: Abnormal Lab Results - Last 24 Hours (Table) 09/01/20 09/01/20 09/01/20 Range/Units 15:41 20:43 21:52 WBC (3.8-10.6) k/uL RBC 3.69 L 3.43 L (3.80-5.40) m/uL Hgb 9.8 L 9.1 L (11.4-16.0) gm/dL Hct 32.3 L 28.9 L (34.0-46.0) % MCHC 30.4 L (31.0-37.0) g/dL RDW 19.5 H 19.9 H (11.5-15.5) % Sodium (137-145) mmol/L Carbon Dioxide (22-30) mmol/L BUN (7-17) mg/dL POC Glucose (mg/dL) 160 H (75-99) mg/dL 09/02/20 09/02/20 09/02/20 Range/Units 03:29 03:29 06:07 WBC 3.6 L (3.8-10.6) k/uL RBC 3.37 L (3.80-5.40) m/uL Hgb 9.0 L (11.4-16.0) gm/dL Hct 28.5 L (34.0-46.0) % MCHC (31.0-37.0) g/dL RDW 19.7 H (11.5-15.5) % Sodium 128 L (137-145) mmol/L Carbon Dioxide 16 L (22-30) mmol/L BUN 39 H (7-17) mg/dL POC Glucose (mg/dL) 114 H (75-99) mg/dL 09/02/20 Range/Units 09:15 WBC (3.8-10.6) k/uL RBC 3.69 L (3.80-5.40) m/uL Hgb 9.7 L (11.4-16.0) gm/dL Hct 30.8 L (34.0-46.0) % MCHC (31.0-37.0) g/dL RDW 19.8 H (11.5-15.5) % Sodium (137-145) mmol/L Carbon Dioxide (22-30) mmol/L BUN (7-17) mg/dL POC Glucose (mg/dL) (75-99) mg/dL Assessment and Plan (1) Liver cirrhosis secondary to ALFONSO (nonalcoholic steatohepatitis) Narrative/Plan: 80-year-old female with multiple medical comorbidities including decompensated liver cirrhosis with ascites and esophageal varices brought to the hospital due to hypotension. Found to be anemic with hemoglobin of 7.8 patient was transfused and hemoglobin has remained stable at 9.6 since that time. She did have some complaints of diarrhea over the past 2-3 weeks prior to presentation with some associated abdominal cramping. Testing for Clostridium difficile negative. Previously she had noted some dark bowel movements however she continues to report brown nonbloody bowel movements with improving diarrhea. The patient's last EGD was on 08/07/2020 with no peptic ulcer disease but deejay ritis and banding of esophageal varices 2 at that time. Current Visit: Yes Status: Acute Code(s): K75.81 - NONALCOHOLIC STEATOHEPATITIS (ALFONSO); K74.60 - UNSPECIFIED CIRRHOSIS OF LIVER SNOMED Code(s): 004300659 (2) Ascites Current Visit: Yes Status: Acute Code(s): R18.8 - OTHER ASCITES SNOMED Code(s): 114017005 (3) Abdominal distention Current Visit: No Status: Acute Code(s): R14.0 - ABDOMINAL DISTENSION (GASEOUS) SNOMED Code(s): 31440714 (4) Diarrhea Current Visit: No Status: Acute Code(s): R19.7 - DIARRHEA, UNSPECIFIED SNOMED Code(s): 05487640 Plan: Supportive care Okay for sodium restricted diet as tolerated Continue to monitor CBC, BMP, LFTs Continue to monitor hemoglobin and hematocrit and transfuse as needed Testing for Clostridium difficile negative Okay for antidiarrheal as needed Continue Aldactone and Lasix therapy Can consider the addition of Midrin if patient is hypotensive, however currently blood pressures are improved No plans for endoscopy at this time, however the patient has further fall in hemoglobin or signs or symptoms of GI bleeding will reevaluate at that time Thank you for allowing us to participate in the care of the patient we will continue to follow
[2020-09-02 17:16] LABS: Glucose,Whole Blood 106 mg/dL (75-99)
[2020-09-02] MEDS: MIDODRINE 5 MG TAB PO SCH (17:31)
[2020-09-02 20:22] LABS: Glucose,Whole Blood 109 mg/dL (75-99)
[2020-09-02] MEDS ORDERED: SPIRONOLACTONE 25 MG TAB PO SCH (21:00)
[2020-09-02] MEDS: MONTELUKAST 10 MG TAB PO SCH (21:03)
[2020-09-02 21:55] LABS: Anisocytosis Slight; HCT 32.9 % (34.0-46.0); HGB 10.3 gm/dL (11.4-16.0); Hypochromasia Marked; MCH 26.2 pg (25.0-35.0); MCHC 31.3 g/dL (31.0-37.0); MCV 83.9 fL (80.0-100.0); Mean Platelet Volume 8.5; Microcytosis Slight; Platelet Count 334 k/uL (150-450); Poikilocytosis Slight; RBC 3.92 m/uL (3.80-5.40); WBC 5.7 k/uL (3.8-10.6)
[2020-09-03] MEDS: MIDODRINE 5 MG TAB PO SCH ×2 (05:52→13:32)
[2020-09-03] MEDS: LEVOTHYROXINE 25 MCG TAB PO SCH (05:52)
[2020-09-03] MEDS: INSULIN ASPART (NovoLOG) 100 UNIT/ML VIAL SQ SCH ×2 (06:26→13:15)
[2020-09-03 06:36] LABS: Glucose,Whole Blood 111 mg/dL (75-99)
[2020-09-03 07:09] LABS: Calcium 8.3 mg/dL (8.4-10.2)
[2020-09-03 07:34] LABS: Anisocytosis Slight; HCT 29.3 % (34.0-46.0); HGB 9.5 gm/dL (11.4-16.0); Hypochromasia Moderate; MCH 26.6 pg (25.0-35.0); MCHC 32.4 g/dL (31.0-37.0); Mean Platelet Volume 8.6; Microcytosis Slight; Platelet Count 225 k/uL (150-450); Poikilocytosis Slight; RBC 3.58 m/uL (3.80-5.40); RDW 19.8 % (11.5-15.5); WBC 3.7 k/uL (3.8-10.6)
[2020-09-03 08:12] LABS: Potassium 5.4 mmol/L (3.5-5.1)
[2020-09-03] MEDS ORDERED: SPIRONOLACTONE 25 MG TAB PO SCH (09:00)
[2020-09-03 09:17] LABS: Eosinophils # (M) 0.07 k/uL (0-0.7); Monocytes # (M) 0.48 k/uL (0-1.0); Neutrophils # (M) 2.85 k/uL (1.3-7.7); Neutrophils % (M) 77 %; Nucleated Red Blood Cells 0 /100 WBC (0-0); Total Cells Counted 100
[2020-09-03 09:20] LABS: Tear Drop Cells Present
[2020-09-03 09:23] LABS: RBC Fragments Present
[2020-09-03] MEDS: FUROSEMIDE 20 MG TAB PO SCH (09:51)
[2020-09-03] MEDS: SPIRONOLACTONE 25 MG TAB PO SCH (09:51)
[2020-09-03] MEDS: CHOLECALCIFEROL 25 MCG (1000 IU) TABLET PO SCH (09:51)
[2020-09-03] MEDS: PANTOPRAZOLE 40 MG/10 ML VIAL IVP SCH (09:51)
[2020-09-03] MEDS: HYDROcodone/APAP 5-325MG 1 EACH TAB PO SCH (09:51)
[2020-09-03] MEDS ORDERED: SODIUM POLYSTYRENE SULFONATE 15 GM/60 ML BOTTLE PO ONE (10:26)
--- NOTE | 2020-09-03 10:40 | P.PN ---
Subjective This is a pleasant 80-year-old female past medical history significant for chronic persistent atrial fibrillation on Eliquis, nonalcoholic liver cirrhosis requiring regular thoracentesis, hypertension, gastritis and esophageal varices s/p banding 07/2020. She follows in the office with Dr. Chandler. She is seen and examined sitting up at the bedside in no acute distress. She states overall she feels as though her stomach is back to ba seline. She has ongoing distention however is soft as compared to yesterday. She denies shortness of breath, dizziness, chest pain or palpitations. Blood pressure 129/57 heart rate 72 afebrile maintaining oxygen saturation on room air. Laboratory data reviewed, WBC 3.7, hemoglobin 9.5, platelets 225, sodium 125, potassium 5.4, creatinine 0.89 and cortisol 10. Currently maintained on Lasix 20 mg by mouth twice a day, midodrine 2.5 mg 3 times a day and Aldactone 25 mg twice a day. GENERAL: Well-appearing, well-nourished and in no acute distress. NECK: Supple without JVD or thyromegaly. LUNGS: Breath sounds clear to auscultation bilaterally. Respiration equal and unlabored. No wheezes, rales or rhonchi. HEART: Irregular rate and rhythm without murmurs, rubs or gallops. S1 and S2 heard. EXTREMITIES: Normal range of motion, no edema. No clubbing or cyanosis. Peripheral pulses intact. ASSESSMENT Acute blood loss anemia with history of esophageal varices with positive stool for occult blood status post 1 unit PRBC Recurrent ascites requiring thoracentesis every other week Hyponatremia Hyperkalemia Nonalcoholic cirrhosis of the liver Chronic persistent atrial fibrillation on long-term anticoagulation with Eliquis Hypertension Dyslipidemia PLAN Continue current medical regimen. Resume eliquis when ok from the GI standpoint. Follow up with Dr. Chandler upon discharge. No further cardiac recommendations at this time. Nurse Practitioner note has been reviewed, I agree with a documented findings and plan of care. Patient was seen and examined. Objective - Vital Signs Vital signs: Vital Signs Temp 97.5 F L 09/03/20 08:37 Pulse 72 09/03/20 08:37 Resp 16 09/03/20 08:37 BP 129/57 09/03/20 08:37 Pulse Ox 97 09/03/20 08:37 Intake & Output 09/02/20 09/03/20 09/03/20 18:59 06:59 18:59 Intake Total 1440 240 120 Output Total 350 Balance 1440 -110 120 Weight 70.9 kg Intake: Oral 1440 240 120 Output: Urine 350 Other: Voiding Method Toilet Toilet # Voids 4 2 # Bowel Movements 3 - Labs CBC & Chem 7: 09/03/20 06:07 09/03/20 06:07 Labs: Abnormal Lab Results - Last 24 Hours (Table) 09/02/20 09/02/20 09/02/20 Range/Units 11:52 14:49 16:51 WBC (3.8-10.6) k/uL RBC 3.57 L (3.80-5.40) m/uL Hgb 9.4 L (11.4-16.0) gm/dL Hct 29.6 L (34.0-46.0) % RDW 20.0 H (11.5-15.5) % Lymphocytes # (Manual) (1.0-4.8) k/uL Sodium (137-145) mmol/L Potassium (3.5-5.1) mmol/L Carbon Dioxide (22-30) mmol/L BUN (7-17) mg/dL POC Glucose (mg/dL) 106 H 106 H (75-99) mg/dL Calcium (8.4-10.2) mg/dL 09/02/20 09/02/20 09/03/20 Range/Units 20:01 21:36 06:07 WBC 3.7 L (3.8-10.6) k/uL RBC 3.58 L (3.80-5.40) m/uL Hgb 10.3 L 9.5 L (11.4-16.0) gm/dL Hct 32.9 L 29.3 L (34.0-46.0) % RDW 20.0 H 19.8 H (11.5-15.5) % Lymphocytes # (Manual) 0.30 L (1.0-4.8) k/uL Sodium (137-145) mmol/L Potassium (3.5-5.1) mmol/L Carbon Dioxide (22-30) mmol/L BUN (7-17) mg/dL POC Glucose (mg/dL) 109 H (75-99) mg/dL Calcium (8.4-10.2) mg/dL 09/03/20 09/03/20 Range/Units 06:07 06:09 WBC (3.8-10.6) k/uL RBC (3.80-5.40) m/uL Hgb (11.4-16.0) gm/dL Hct (34.0-46.0) % RDW (11.5-15.5) % Lymphocytes # (Manual) (1.0-4.8) k/uL Sodium 125 L (137-145) mmol/L Potassium 5.4 H (3.5-5.1) mmol/L Carbon Dioxide 18 L (22-30) mmol/L BUN 28 H (7-17) mg/dL POC Glucose (mg/dL) 111 H (75-99) mg/dL Calcium 8.3 L (8.4-10.2) mg/dL
[2020-09-03] MEDS: OXYBUTYNIN 10 MG TAB.ER.24 PO SCH (10:56)
[2020-09-03 11:24] LABS: Glucose,Whole Blood 101 mg/dL (75-99)
[2020-09-03 11:55] VITALS: BP 126/60; PULSE 64; RESP 17; TEMP 97.1
[2020-09-03] MEDS ORDERED: APIXABAN 5 MG TAB PO SCH (12:00)
[2020-09-03] MEDS: THIAMINE 100 MG TAB PO SCH (13:15)
[2020-09-03] MEDS: FOLIC ACID 1 MG TAB PO SCH (13:15)
[2020-09-03] MEDS: MULTIVITAMINS, THERA 1 EACH TAB PO SCH (13:15)
--- NOTE | 2020-09-04 10:16 | P.DS ---
Providers Date of admission: 08/31/20 13:48 Expected date of discharge: 09/03/20 Attending physician: Bg Ayon Consults: 08/31/20 13:47 Consult Physician Routine Consulting Provider: Saira Maciel Consult Reason/Comments: GI bleed Do you want consulting provider notified?: Yes 08/31/20 16:06 Consult Physician Routine Consulting Provider: Lyric Bansal Consult Reason/Comments: afib Do you want consulting provider notified?: Yes Primary care physician: [facility] Course: Final diagnosis Acute upper gastrointestinal bleeding with acute blood loss anemia, symptomatic, possibly secondary from gastritis Known alcoholic cirrhosis of the liver and gastric varices Status post blood transfusion for symptomatic anemia Hyponatremia hypotension, multifactorial Acute renal failure with acute tubular necrosis with prerenal uremia Atrial fibrillation history Stool occult blood positive history of asthma history diabetes mellitus type 2 history of fibromyalgia Gastroesophageal reflux disease hypertension hyperlipidemia history of degenerative joint disease History of pulmonary embolism history of ascites and multiple paracentesis History of radiculopathy, right History of appendectomy history of back surgery Remote history of nicotine dependence Full code Discharge disposition Patient is being discharged in a stable condition with guarded prognosis to home. Patient will follow-up with Dr. Amezcua in the outpatient setting upon discharge. Patient will also follow-up with cardiology Dr. Chandler in 2 weeks. She has standing order for GI paracentesis and will continue. Prescription is provided for repeat labs to monitor hemoglobin and kidney functions. Patient will continue to hold Eliquis until follow-up with primary care provider this week. Total time taken is greater than 35 minutes. Hospital course This is a 80-year-old female who was recently admitted with upper gastrointestinal bleeding and known alcoholic cirrhosis and was being closely monitored. Cardiology and GI evaluated the patient with recent EGD patient does have standing orders for paracentesis with GI in the outpatient setting. Patient does take anticoagulants which are currently on hold as patient was symptomatic with acute blood loss anemia. Current hemoglobin is 9.5. Per GI recommendations okay to resume anticoagulant and instructed patient to continue to hold Eliquis until follow-up with primary care provider this week. Potassium was also found to be slightly elevated at 5.4 and a dose of Kayexalate was given, sodium is low and prescription provided for repeat labs in 1-2 days. Patient instructed to follow sodium restricted diet and continue to hold Aldactone along with lisinopril and Toprol until GI and cardiology follow-up in the outpatient setting. Currently no reports of chest pain, shortness of breath, or palpitations. Patient is afebrile. No reports of nausea or vomiting and patient is tolerating diet. Patient will be discharged home today. Guarded prognosis On exam vital signs are stable. Cardio S1, S2 are muffled. Respiratory system shows diminished breath sounds at the bases with no wheezing or rhonchi noted. Abdomen is soft and non-tender. Nervous system shows no focal deficits. Please refer to medication reconciliation sheet for a list of medications. Patient Condition at Discharge: Stable Plan - Discharge Summary Discharge Rx Participant: No New Discharge Prescriptions: New Folic Acid 1 mg PO DAILY@1200 30 Days #30 tab Midodrine [ProAmatine] 2.5 mg PO AC-TID #50 tab Pantoprazole Sodium [Protonix] 40 mg PO DAILY 30 Days #60 tablet.dr Acetaminophen Tab [Tylenol] 650 mg PO Q6HR PRN tab PRN Reason: Mild Pain Or Fever > 100.5 Thiamine [Vitamin B-1] 100 mg PO DAILY@1200 30 Days #30 tab Continue Montelukast [Singulair] 10 mg PO HS@2200 Levothyroxine Sodium [Synthroid] 25 mcg PO DAILY@0700 Oxybutynin Chloride [Ditropan XL] 10 mg PO DAILY@1000 HYDROcodone/APAP 5-325MG [Roosevelt 5-325] 1 tab PO QID@07,10,12,16 Multivit-Min/FA/Lycopen/Lutein [Centrum Silver Tablet] 1 tab PO DAILY@0700 Evolocumab [Repatha Sureclick] 140 mg SQ Q14D EPINEPHrine (Auto Inject) [Epipen] 0.3 mg IM ONCE PRN PRN Reason: Anaphylaxis Omeprazole 40 mg PO DAILY Apixaban [Eliquis] 5 mg PO BID@1000,2200 #0 Furosemide [Lasix] 20 mg PO BID Albuterol Inhaler [Ventolin Hfa Inhaler] 1 puff INHALATION RT-Q4H PRN PRN Reason: Shortness Of Breath Cholecalciferol [Vitamin D3 (25 Mcg = 1000 Iu)] 25 mcg PO DAILY@1000 Ketoconazole 2% Cream [Nizoral 2%] 1 applic TOPICAL BID PRN PRN Reason: Rash Lutein 10 mg PO DAILY Discontinued lisinopriL [Zestril] 10 mg PO DAILY@1200 Metoprolol Succinate [Toprol XL] 12.5 mg PO DAILY@1200 #0 Spironolactone [Aldactone] 25 mg PO BID Discharge Medication List Levothyroxine Sodium [Synthroid] 25 mcg PO DAILY@0700 03/23/14 [History] Montelukast [Singulair] 10 mg PO HS@2200 03/23/14 [History] Oxybutynin Chloride [Ditropan XL] 10 mg PO DAILY@1000 03/23/14 [History] HYDROcodone/APAP 5-325MG [Roosevelt 5-325] 1 tab PO QID@07,10,12,16 06/13/15 [History] Multivit-Min/FA/Lycopen/Lutein [Centrum Silver Tablet] 1 tab PO DAILY@0700 06/13/15 [History] Evolocumab [Repatha Sureclick] 140 mg SQ Q14D 03/14/20 [History] EPINEPHrine (Auto Inject) [Epipen] 0.3 mg IM ONCE PRN 04/13/20 [History] Omeprazole 40 mg PO DAILY 06/20/20 [History] Apixaban [Eliquis] 5 mg PO BID@1000,2200 #0 08/20/20 [Rx] Albuterol Inhaler [Ventolin Hfa Inhaler] 1 puff INHALATION RT-Q4H PRN 08/31/20 [History] Cholecalciferol [Vitamin D3 (25 Mcg = 1000 Iu)] 25 mcg PO DAILY@1000 08/31/20 [ History] Furosemide [Lasix] 20 mg PO BID 08/31/20 [History] Ketoconazole 2% Cream [Nizoral 2%] 1 applic TOPICAL BID PRN 08/31/20 [History] Lutein 10 mg PO DAILY 08/31/20 [History] Acetaminophen Tab [Tylenol] 650 mg PO Q6HR PRN tab 09/03/20 [Rx] Folic Acid 1 mg PO DAILY@1200 30 Days #30 tab 09/03/20 [Rx] Midodrine [ProAmatine] 2.5 mg PO AC-TID #50 tab 09/03/20 [Rx] Pantoprazole Sodium [Protonix] 40 mg PO DAILY 30 Days #60 tablet. 09/03/20 [Rx] Thiamine [Vitamin B-1] 100 mg PO DAILY@1200 30 Days #30 tab 09/03/20 [Rx] Follow up Appointment(s)/Referral(s): Jayy Chandler MD [STAFF PHYSICIAN] - 2 Weeks (office will call patient to schedule appt.) Shea Amezcua MD [Primary Care Provider] - 09/11/20 10:30 am Ambulatory/Diagnostic Orders: Basic Metabolic Panel [LAB.AMB] Time Frame: 2 Days, Location: None Selected Complete Blood Count w/diff [LAB.AMB] Time Frame: 2 Days, Location: None Selected Patient Instructions/Handouts: Thiamine (By mouth), Folic Acid (By mouth), Midodrine (By mouth), Pantoprazole (By mouth), Gastrointestinal Bleeding (DC), Ascites (DC) Activity/Diet/Wound Care/Special Instructions: Activity Limited until follow-up Follow-up with primary care provider upon discharge Follow-up with cardiology in 1-2 weeks as scheduled Continue to hold Eliquis for the next week and monitor closely for any bleeding noted and discuss primary care provider Slowly advanced diet as tolerated Continue sodium restricted diet Continue to hold Aldactone, lisinopril, Toprol until cardiology follow-up Repeat labs in 2 days and follow-up with primary care this week Discharge Disposition: HOME SELF-CARE
== END 2020-09-03 14:00 | disposition home or self-care (01) | DRG 377 ==
LOC: EC 12:09 → 3SCARD 13:48 → 5NMEDONC 09-03 08:20
PROVIDERS: ADMIT Hospitalist; ATTEND Hospitalist
PROC: 30233N1 Transfusion of Nonautologous Red Blood Cells into Peripheral Vein, Percutaneous Approach (ICD-10-PCS; principal; 2020-08-31)
DX: K29.71 Gastritis, unspecified, with bleeding (principal); N17.0 Acute kidney failure with tubular necrosis; D62 Acute posthemorrhagic anemia; E87.1 Hypo-osmolality and hyponatremia; I48.19 Other persistent atrial fibrillation; E03.9 Hypothyroidism, unspecified; E11.41 Type 2 diabetes mellitus with diabetic mononeuropathy; E78.5 Hyperlipidemia, unspecified; E87.5 Hyperkalemia; I10 Essential (primary) hypertension; K21.9 Gastro-esophageal reflux disease without esophagitis; K75.81 Nonalcoholic steatohepatitis (NASH); K70.31 Alcoholic cirrhosis of liver with ascites; Z96.653 Presence of artificial knee joint, bilateral; Z96.619 Presence of unspecified artificial shoulder joint; M19.90 Unspecified osteoarthritis, unspecified site; N32.81 Overactive bladder; M79.7 Fibromyalgia; Z20.822 Contact with and (suspected) exposure to COVID-19; Z90.710 Acquired absence of both cervix and uterus; Z98.1 Arthrodesis status; Z90.49 Acquired absence of other specified parts of digestive tract; Z87.891 Personal history of nicotine dependence; Z86.711 Personal history of pulmonary embolism; Z85.828 Personal history of other malignant neoplasm of skin; Z79.899 Other long term (current) drug therapy; Z79.890 Hormone replacement therapy; Z79.01 Long term (current) use of anticoagulants; Z88.1 Allergy status to other antibiotic agents; Z91.030 Bee allergy status; Z91.018 Allergy to other foods; Z88.0 Allergy status to penicillin; Z91.013 Allergy to seafood; Z91.09 Other allergy status, other than to drugs and biological substances; Z98.49 Cataract extraction status, unspecified eye
CPT/HCPCS: 36415; 71045; 80048; 80053; 81003; 82272; 82533; 83735; 84484; 85025; 85027; 85610; 85730; 86850; 86900; 86901; 86920; 87324; 87635; 96374; 99285

== ENCOUNTER → 2020-09-05 | Outpatient (CLI) | payer MEDICARE ==
[2020-09-05 22:50] LABS: Basophils # (A) 0.03 X 10*3/uL (0.00-0.10); Basophils % (A) 0.4 %; Eosinophils # (A) 0.05 X 10*3/uL (0.04-0.35); Eosinophils % (A) 0.7 %; HCT 31.4 % (37.2-46.3); HGB 9.8 g/dL (12.0-15.0); Lymphocytes # (A) 0.57 X 10*3/uL (0.90-5.00); Lymphocytes % (A) 8.5 %; MCH 25.5 pg (27.0-32.0); MCHC 31.2 g/dL (32.0-37.0); MCV 81.6 fL (80.0-97.0); Mean Platelet Volume 11.6 fL (9.5-12.2); Monocytes # (A) 0.54 X 10*3/uL (0.20-1.00); Platelet Count 317 X 10*3/uL (140-440); RBC 3.85 X 10*6/uL (4.10-5.20); RDW 20.2 % (11.5-14.5); WBC 6.72 X 10*3/uL (4.50-10.00)
[2020-09-06 02:45] LABS: African American GFR (CKD) 49.8 (60.0-200.0); Anion Gap 12.4 mmol/L (4.00-12.00); BUN/Creat Ratio 25.83 Ratio (12.00-20.00); Calcium 8.3 mg/dL (8.7-10.3); Carbon Dioxide 17.6 mmol/L (21.6-31.8); Non-African American GFR(CKD) 42.9 (60.0-200.0); Potassium 4.3 mmol/L (3.5-5.5)
== END | disposition home or self-care (01) ==
LOC: LABWHC1 13:12
PROVIDERS: ATTEND Registered Nurse
DX: E87.1 Hypo-osmolality and hyponatremia (principal); E87.5 Hyperkalemia; D64.9 Anemia, unspecified; K92.2 Gastrointestinal hemorrhage, unspecified; R79.89 Other specified abnormal findings of blood chemistry
CPT/HCPCS: 36415; 80048; 85025

== ENCOUNTER 2020-09-10 12:48 | Day surgery (SDC) | payer MEDICARE ==
[2020-09-10 13:34] LABS: Platelet Count 279 k/uL (150-450)
[2020-09-10 13:38] VITALS: TEMP 97.5
[2020-09-10 13:39] LABS: INR 1.3 (<1.2); Prothrombin Time 13.5 sec (9.0-12.0)
[2020-09-10] MEDS: ALBUMIN HUMAN 25% 50 ML in EMPTY BAG 1 BAG IVPB SCH ×3 (15:00→16:27)
[2020-09-10 16:00] VITALS: BP 117/68; PULSE 65; RESP 18
--- NOTE | 2020-09-11 10:07 | US ---
Ultrasound-guided paracentesis. DATE OF EXAM: 09/10/2020 CLINICAL HISTORY: Ascites The procedure was discussed with the patient. The risks, complications, benefits, and alternatives we re discussed and any questions were answered. Informed consent was obtained. The patient was placed s upine on the ultrasound table and prepped and draped in the usual sterile fashion. All elements of maximal barrier technique were utilized. Under ultrasound guidance, access into the right lower quadrant was obtained, via the paracentesis catheter system and direct ultrasound guidanc e. Approximately 5.7 liters of straw-colored fluid was removed. The patient was stable throughout the pr ocedure and remained stable upon discharge from Department of Radiology. IMPRESSION: Successful paracentesis under ultrasound guidance.
== END 2020-09-10 16:01 | disposition home or self-care (01) ==
LOC: RADPROMAIN 12:48
PROVIDERS: ATTEND Internal Medicine Gastroenterology
DX: R18.8 Other ascites (principal); K74.60 Unspecified cirrhosis of liver
CPT/HCPCS: 82565; 82947; 85049; 85610; 36415; 49083; P9047

== ENCOUNTER 2020-09-20 12:13 | Day surgery (SDC) | payer MEDICARE ==
[2020-09-20 13:05] LABS: INR 1.1 (<1.2); Prothrombin Time 11.9 sec (9.0-12.0)
[2020-09-20 13:39] VITALS: RESP 16; TEMP 98
[2020-09-20] MEDS: ALBUMIN HUMAN 25% 50 ML in EMPTY BAG 1 BAG IVPB SCH ×4 (13:39→15:24)
[2020-09-20 14:33] VITALS: BP 126/55; PULSE 70
--- NOTE | 2020-09-20 16:07 | US ---
Ultrasound-guided paracentesis. DATE OF EXAM: 09/20/2020 CLINICAL HISTORY: Ascites The procedure was discussed with the patient. The risks, complications, benefits, and alternatives we re discussed and any questions were answered. Informed consent was obtained. The patient was placed s upine on the ultrasound table and prepped and draped in the usual sterile fashion. All elements of maximal barrier technique were utilized. Under ultrasound guidance, access into the right lower quadrant was obtained, via the paracentesis catheter system and direct ultrasound guidanc e. Approximately 6.6 liters of straw-colored fluid was removed. The patient was stable throughout the pr ocedure and remained stable upon discharge from Department of Radiology. IMPRESSION: Successful paracentesis under ultrasound guidance.
== END 2020-09-20 15:19 | disposition home or self-care (01) ==
LOC: RADPROMAIN 12:13
PROVIDERS: ATTEND Internal Medicine Gastroenterology
DX: R18.8 Other ascites (principal)
CPT/HCPCS: 82565; 82947; 85610; 36415; 49083; P9047

== ENCOUNTER 2020-09-28 12:23 | Day surgery (SDC) | payer MEDICARE ==
[2020-09-28 12:17] LABS: Anisocytosis Slight; HCT 24.4 % (34.0-46.0); Hypochromasia Marked; MCH 23.2 pg (25.0-35.0); MCHC 30.9 g/dL (31.0-37.0); Mean Platelet Volume 8.4; Microcytosis Moderate; Platelet Count 271 k/uL (150-450); Poikilocytosis Slight; RBC 3.25 m/uL (3.80-5.40); RDW 18.6 % (11.5-15.5); WBC 4.9 k/uL (3.8-10.6)
[2020-09-28 12:38] LABS: HGB 7.5 gm/dL (11.4-16.0)
[2020-09-28 12:39] LABS: MCV 75.1 fL (80.0-100.0)
[2020-09-28 12:40] LABS: INR 1.2 (<1.2); Prothrombin Time 12.6 sec (9.0-12.0)
[2020-09-28] MEDS: ALBUMIN HUMAN 25% 50 ML in EMPTY BAG 1 BAG IVPB SCH ×3 (13:20→14:00)
[2020-09-28 13:33] VITALS: TEMP 97.6
[2020-09-28 13:45] VITALS: RESP 16
[2020-09-28 14:48] VITALS: BP 111/65; PULSE 85
--- NOTE | 2020-09-28 16:04 | US ---
EXAMINATION TYPE: US paracentesis abd w/image DATE OF EXAM: 09/28/2020 COMPARISON: NONE HISTORY: Ascites. PROCEDURE: Maximal barrier technique was utilized. The skin overlying a suitable pocket of fluid was localized with ultrasound and the overlying skin was prepped and draped. Ultrasound was utilized with sterile technique. Lidocaine was used for local anesthesia and a skin saurabh made with a scalpel. Catheter was advanced under direct ultrasound guidance into a suitable pocket of fluid and approximately 8.2 liter s of serous fluid were removed. Catheter was withdrawn and hemostasis achieved. There is no immedia te complication; the patient is discharged in stable condition. IMPRESSION: STATUS POST ULTRASOUND GUIDED PARACENTESIS FOR PALLIATION OF ASCITES. THIS PROCEDURE WA S PERFORMED BY THE UNDERSIGNED.
== END 2020-09-28 14:55 | disposition home or self-care (01) ==
LOC: RADPROMAIN 12:23
PROVIDERS: ATTEND Internal Medicine Gastroenterology
DX: R18.8 Other ascites (principal); K74.60 Unspecified cirrhosis of liver
CPT/HCPCS: 82565; 82947; 85027; 85610; 49083; P9047

== ENCOUNTER 2020-10-04 01:20 | Observation (INO) | payer MEDICARE ==
--- NOTE | 2020-10-04 01:31 | ED ---
Fall HPI - General Chief Complaint: Fall Stated Complaint: Fall Time Seen by Provider: 10/04/20 01:31 Source: patient, EMS Mode of arrival: EMS - Related Data Home Medications Medication Instructions Recorded Confirmed Levothyroxine Sodium [Synthroid] 25 mcg PO DAILY@0700 03/23/14 09/28/20 Montelukast [Singulair] 10 mg PO HS@2200 03/23/14 09/28/20 Oxybutynin Chloride [Ditropan XL] 10 mg PO DAILY@1000 03/23/14 09/28/20 HYDROcodone/APAP 5-325MG [Braham 1 tab PO QID@07,10,12,16 06/13/15 09/28/20 5-325] Evolocumab [Repatha Sureclick] 140 mg SQ Q14D 03/14/20 09/28/20 EPINEPHrine (Auto Inject) [Epipen] 0.3 mg IM ONCE PRN 04/13/20 09/28/20 Omeprazole 40 mg PO DAILY 06/20/20 09/28/20 Albuterol Inhaler [Ventolin Hfa 1 puff INHALATION RT-Q4H PRN 08/31/20 09/28/20 Inhaler] Cholecalciferol [Vitamin D3 (25 25 mcg PO DAILY@1000 08/31/20 09/28/20 Mcg = 1000 Iu)] Furosemide [Lasix] 25 mg PO BID 08/31/20 09/28/20 Lutein 10 mg PO DAILY 08/31/20 09/28/20 Midodrine [ProAmatine] 2.5 mg PO AC-TID 09/10/20 09/28/20 Previous Rx's Medication Instructions Recorded Apixaban [Eliquis] 5 mg PO BID@1000,2200 #0 08/20/20 Acetaminophen Tab [Tylenol] 650 mg PO Q6HR PRN tab 09/03/20 Folic Acid 1 mg PO DAILY@1200 30 Days #30 tab 09/03/20 Thiamine [Vitamin B-1] 100 mg PO DAILY@1200 30 Days #30 09/03/20 tab Allergies Allergy/AdvReac Type Severity Reaction Status Date / Time venom-wasp [Wasp Venom] Allergy Severe Swelling Verified 09/28/20 15:06 adhesive Allergy Unknown Rash/Hives Verified 09/28/20 15:06 amoxicillin [Amoxicillin] Allergy Unknown Rash/Hives, Verified 09/28/20 15:06 itching fenofibrate nanocrystallized Allergy Unknown Rash/Hives,joint Verified 09/28/20 15:06 [From Tricor] pain fenofibrate,micronized Allergy Unknown Rash/Hives, Verified 09/28/20 15:06 [From Tricor] joint pain hydrochlorothiazide Allergy Unknown Rash/Hives Verified 09/28/20 15:06 Neuromuscular Blockers, Allergy Unknown Rash/Hives Verified 09/28/20 15:06 Steroidal [Steroidal Neuromuscular Blockers] Penicillins Allergy Unknown Rash/Hives, Verified 09/28/20 15:06 red skin shellfish derived Allergy Unknown SKIN RED Verified 09/28/20 15:06 AND WARM simvastatin [From Zocor] Allergy Unknown Rash/Hives, Verified 09/28/20 15:06 joint pain [id number] Reductase Allergy Unknown Rash/Hives, Verified 09/28/20 15:06 Inhibitor joint pain venom-honey bee Allergy Unknown Swelling Verified 09/28/20 15:06 [bee venom (honey bee)] cat dander Allergy Rash/Hives Verified 09/28/20 15:06 ciprofloxacin HCl Allergy Unknown Verified 09/28/20 15:06 [From Cipro] sulfamethoxazole Allergy Rash/Hives Verified 09/28/20 15:06 talc Allergy Rash/Hives Verified 09/28/20 15:06 walnut Allergy Rash/Hives Verified 09/28/20 15:06 clarithromycin AdvReac warm and Verified 09/28/20 15:06 flushed minocycline AdvReac warm and Verified 09/28/20 15:06 flushed prednisone AdvReac Nausea Verified 09/28/20 15:06 soy AdvReac Nausea & Verified 09/28/20 15:06 Vomiting Review of Systems ROS Statement: Those systems with pertinent positive or pertinent negative responses have been documented in the HPI. ROS Other: All systems not noted in ROS Statement are negative. Past Medical History Past Medical History: Atrial Fibrillation, Asthma, Cancer, Diabetes Mellitus, Fibromyalgia, GERD/Reflux, Hyperlipidemia, Hypertension, Liver Disease, Osteoarthritis (OA), Pulmonary Embolus (PE), Thyroid Disorder Additional Past Medical History / Comment(s): Pt recently admitted to [facility] on 08/14/20 with decompensated liver cirrhosis 2ndary to ALFONSO with ascities/acute diarrhea and anemia with transfusion. Other hx: Nonalcoholic fatty liver, liver cirrhosis, ascities with multiple paracentesis and has albumin infusions, esophageal varicies with banding, NIDDM type II, neuropathy bilateral legs/feet, spinal stenosis/low back pain with R side radiculopathy and lately has had pain down L leg, recent bilateral lower leg edema, PE after leg fracture, overactive bladder, hypothyroid, sinus problems, vertigo, bilateral macular degeneration History of Any Multi-Drug Resistant Organisms: None Reported Past Surgical History: Adenoidectomy, Appendectomy, Back Surgery, Breast Surgery, Hysterectomy, Joint Replacement, Orthopedic Surgery, Tonsillectomy Additional Past Surgical History / Comment(s): Multiple paracentesis, lower back and cervical fusions, bilateral total knees, bilateral total shoulders, bilateral carpal tunnel releases, bilateral hand trigger finger releases, R foot bone spur removed, R leg fracture/hardware removed, R breast fatty tumor removed, EGD with esophageal varicies banded, colonoscopy, skin cancer removed, bilateral cataracts removed. Past Anesthesia/Blood Transfusion Reactions: Motion Sickness, Postoperative Nausea & Vomiting (PONV) Additional Past Anesthesia/Blood Transfusion Reaction / Comment(s): Patient received blood in 1958. Past Psychological History: No Psychological Hx Reported Smoking Status: Former smoker Past Alcohol Use History: None Reported Past Drug Use History: None Reported - Past Family History Mother History Unknown: Yes Family Medical History: No Reported History Additional Family Medical History / Comment(s): Mother was healthy and lived to be 87yrs old. Father History Unknown: Yes Additional Family Medical History / Comment(s): Father in a MVA General Exam Limitations: no limitations Course Vital Signs 10/04/20 01:23 Temperature 98.4 F Pulse Rate 101 H Respiratory 22 Rate Blood Pressure 151/77 O2 Sat by Pulse 100 Oximetry Disposition Clinical Impression: Fall, Abdominal pain, Ascites Disposition: ADMITTED IP TO THIS HOSP Condition: Good Is patient prescribed a controlled substance at d/c from ED?: No Referrals: Shea Amezcua MD [Primary Care Provider] - 1-2 days
[2020-10-04] MEDS ORDERED: MORPHINE SULFATE 4 MG/ML SYRINGE IV STA (01:39)
[2020-10-04] MEDS ORDERED: ACET/COD 300 MG/30 MG STARTER PACK 6 TAB BTL PO STA (02:07)
[2020-10-04] MEDS ORDERED: ONDANSETRON 4 MG ODT STARTER PACK 2 TAB BTL PO STA (02:07)
[2020-10-04 02:44] LABS: Lactic Acid, Venous 1.2 mmol/L (0.7-2.0)
[2020-10-04 02:45] LABS: Calcium 8.4 mg/dL (8.4-10.2); Potassium 4.3 mmol/L (3.5-5.1); Total Bilirubin 0.5 mg/dL (0.2-1.3); Total Protein 5.1 g/dL (6.3-8.2)
[2020-10-04 02:46] LABS: Anisocytosis Moderate; Basophils % (A) 0 %; Eosinophils # (A) 0.1 k/uL (0-0.7); Eosinophils % (A) 2 %; HCT 28.7 % (34.0-46.0); HGB 8.3 gm/dL (11.4-16.0); Hypochromasia Marked; Lymphocytes # (A) 0.6 k/uL (1.0-4.8); Lymphocytes % (A) 9 %; MCH 22.8 pg (25.0-35.0); MCV 78.6 fL (80.0-100.0); Mean Platelet Volume 7.2; Microcytosis Moderate; Monocytes # (A) 0.4 k/uL (0-1.0); Monocytes % (A) 7 %; Neutrophils # (A) 5.1 k/uL (1.3-7.7); Neutrophils % (A) 81 %; Platelet Count 299 k/uL (150-450); Poikilocytosis Slight; RBC 3.65 m/uL (3.80-5.40); RDW 23.2 % (11.5-15.5); WBC 6.3 k/uL (3.8-10.6)
--- NOTE | 2020-10-04 02:47 | XR ---
EXAM: XR Right Ribs, 2 Views CLINICAL HISTORY: ITS.REASON XR Reason: fall TECHNIQUE: Frontal and oblique views of the right ribs. COMPARISON: No relevant prior studies available. FINDINGS: Lungs: Unremarkable as visualized. No consolidation. Pleural space: Unremarkable. No pneumothorax. Bones/joints: Mild to moderate osteophytosis in the mid to lower thoracic spine. Previous bilateral shoulder arthroplasty. Previous 2 level fusion of the lower cervical spine. No rib fracture is identified. IMPRESSION: No acute findings in the right ribs.
--- NOTE | 2020-10-04 02:48 | XR ---
EXAM: XR Pelvis, 1 or 2 Views CLINICAL HISTORY: ITS.REASON XR Reason: fall TECHNIQUE: Frontal view of the pelvis. COMPARISON: No relevant prior studies available. FINDINGS: Bones/joints: There is a left total hip arthroplasty. There is moderate joint space narrowing and osteophytosis involving the right hip joint consistent with osteoarthritic change. Partial visualization of instrumentation in the lower lumbar spine. No acute fracture. No dislocation. Soft tissues: Unremarkable. Gastrointestinal tract: Possible constipation with 7 cm of stool in the cecum. The remaining visible bowel loops appear unremarkable. IMPRESSION: No acute findings in the pelvis.
[2020-10-04] MEDS ORDERED: MORPHINE SULFATE 4 MG/ML SYRINGE IVP STA (04:24)
[2020-10-04 04:59] LABS: Appearance,Urine Clear (Clear); Bilirubin,Urine Negative (Negative); Blood,Urine Negative (Negative); Color,Urine Yellow; Glucose,Urine (UA) Negative (Negative); Ketones,Urine Negative (Negative); Leukocyte Esterase,Urine Negative (Negative); Nitrite,Urine Negative (Negative); Protein,Urine Negative (Negative); Specific Gravity,Urine 1.012 (1.001-1.035); Urobilinogen,Urine <2.0 mg/dL (<2.0)
[2020-10-04 09:17] LABS: INR 1.3 (<1.2); Prothrombin Time 12.9 sec (9.0-12.0)
[2020-10-04] MEDS: MORPHINE SULFATE 4 MG/ML SYRINGE IVP PRN ×3 (09:49→20:41)
[2020-10-04] MEDS ORDERED: SODIUM FERRIC GLUCONAT-SUCROSE 125 MG in SODIUM CHLORIDE 0.9% 100 ML IVPB ONE (11:15)
--- NOTE | 2020-10-04 13:19 | US ---
EXAMINATION TYPE: US paracentesis abd w/image DATE OF EXAM: 10/04/2020 COMPARISON: NONE HISTORY: Ascites. PROCEDURE: Maximal barrier technique was utilized. The skin overlying a suitable pocket of fluid was localized with ultrasound and the overlying skin was prepped and draped. Ultrasound was utilized with sterile technique. Lidocaine was used for local anesthesia and a skin saurabh made with a scalpel. Catheter was advanced under direct ultrasound guidance into a suitable pocket of fluid and approximately 7.8 liter s of serous fluid were removed. Catheter was withdrawn and hemostasis achieved. There is no immedia te complication; the patient is discharged in stable condition. IMPRESSION: STATUS POST ULTRASOUND GUIDED PARACENTESIS FOR PALLIATION OF ASCITES. THIS PROCEDURE WA S PERFORMED BY THE UNDERSIGNED.
[2020-10-04] MEDS ORDERED: EPINEPHrine 1 MG/ML 1 ML AMP IM PRN (15:44)
[2020-10-04] MEDS ORDERED: ALBUTEROL NEBULIZED 2.5 MG/3 ML INHALATION PRN (15:44)
--- NOTE | 2020-10-04 15:53 | P.HPIM ---
History of Present Illness 80-year-old female came in with the diffuse abdominal distention abdominal discomfort found to have significant ascites patient underwent the acetic fluid. Patient does have history of cirrhosis. 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 Patient has multiple other electrolyte abnormalities secondary to diuretics. Patient had her acidosis today with removal of around 7.5 L of ascitic fluid. After the procedure patient has significant improvement in pain. Patient has been falling lately it home. Patient appears to have significant muscle atrophy in both the legs does appear to have weakness. Physical therapy occupational therapy are being consulted and patient will be admitted. Review of Systems REVIEW OF SYSTEMS: CONSTITUTIONAL: No fever, no malaise, no fatigue. HEENT: No recent visual problems or hearing problems. Denied any sore throat. CARDIOVASCULAR: No chest pain, orthopnea, PND, no palpitations, no syncope. PULMONARY: No shortness of breath, no cough, no hemoptysis. GASTROINTESTINAL: abdominal pain. NEUROLOGICAL: No headaches, no weakness, no numbness. HEMATOLOGICAL: Denies any bleeding or petechiae. GENITOURINARY: Denies any burning micturition, frequency, or urgency. MUSCULOSKELETAL/RHEUMATOLOGICAL: Denies any joint pain, swelling, or any muscle pain. ENDOCRINE: Denies any polyuria or polydipsia. The rest of the 14-point review of systems is negative. Past Medical History Past Medical History: Atrial Fibrillation, Asthma, Cancer, Diabetes Mellitus, Fibromyalgia, GERD/Reflux, GI Bleed, Hyperlipidemia, Hypertension, Liver Disease, Osteoarthritis (OA), Pulmonary Embolus (PE), Thyroid Disorder Additional Past Medical History / Comment(s): Pt recently admitted to [facility] on 08/30/20 with upper GI bleed with acute blood loss anemia possibly d/t gastritiis/+stool OB, hyponatremia, hypotension, acute renal failure. Other hx: Decompensated liver cirrhosis 2ndary to ALFONSO with ascities/acute diarrhea and anemia with transfusion. Other hx: Nonalcoholic fatty liver, liver cirrhosis, ascities with multiple paracentesis and has albumin infusions, esophageal varicies with banding, NIDDM type II, neuropathy bilateral legs/feet, spinal stenosis/low back pain with R side radiculopathy and lately has had pain down L leg, recent bilateral lower leg edema, PE after leg fracture, overactive bladder, hypothyroid, sinus problems, vertigo, bilateral macular degeneration History of Any Multi-Drug Resistant Organisms: None Reported Past Surgical History: Adenoidectomy, Appendectomy, Back Surgery, Breast Surgery, Hysterectomy, Joint Replacement, Orthopedic Surgery, Tonsillectomy Additional Past Surgical History / Comment(s): Multiple paracentesis, lower back and cervical fusions, bilateral total knees, bilateral total shoulders, bilateral carpal tunnel releases, bilateral hand trigger finger releases, R foot bone spur removed, R leg fracture/hardware removed, R breast fatty tumor removed, EGD with esophageal varicies banded, colonoscopy, skin cancer removed, bilateral cataracts removed. Past Anesthesia/Blood Transfusion Reactions: Motion Sickness, Postoperative Nausea & Vomiting (PONV) Additional Past Anesthesia/Blood Transfusion Reaction / Comment(s): Patient received blood in 1958 and in August 2020 without reaction. Smoking Status: Former smoker - Past Family History Mother History Unknown: Yes Family Medical History: No Reported History Additional Family Medical History / Comment(s): Mother was healthy and lived to be 87yrs old. Father History Unknown: Yes Additional Family Medical History / Comment(s): Father in a MVA Medications and Allergies Home Medications Medication Instructions Recorded Confirmed Type Levothyroxine Sodium [Synthroid] 25 mcg PO DAILY@0700 03/23/14 10/04/20 History Montelukast [Singulair] 10 mg PO HS@2200 03/23/14 10/04/20 History Oxybutynin Chloride [Ditropan XL] 10 mg PO DAILY@1000 03/23/14 10/04/20 History HYDROcodone/APAP 5-325MG [[place] 1 tab PO QID@07,10,12,16 06/13/15 10/04/20 History 5-325] Evolocumab [Repatha Sureclick] 140 mg SQ Q14D 03/14/20 10/04/20 History EPINEPHrine (Auto Inject) [Epipen] 0.3 mg IM ONCE PRN 04/13/20 10/04/20 History Omeprazole 40 mg PO DAILY 06/20/20 10/04/20 History Apixaban [Eliquis] 5 mg PO BID@1000,2200 #0 08/20/20 10/04/20 Rx Albuterol Inhaler [Ventolin Hfa 1 puff INHALATION RT-Q4H PRN 08/31/20 10/04/20 History Inhaler] Cholecalciferol [Vitamin D3 (25 25 mcg PO DAILY@1000 08/31/20 10/04/20 History Mcg = 1000 Iu)] Lutein 10 mg PO DAILY 08/31/20 10/04/20 History Acetaminophen Tab [Tylenol] 650 mg PO Q6HR PRN tab 09/03/20 10/04/20 Rx Folic Acid 1 mg PO DAILY@1200 30 Days #30 tab 09/03/20 10/04/20 Rx Thiamine [Vitamin B-1] 100 mg PO DAILY@1200 30 Days #30 09/03/20 10/04/20 Rx tab Midodrine [ProAmatine] 2.5 mg PO AC-TID 09/10/20 10/04/20 History Furosemide [Lasix] 40 mg PO BID 10/04/20 10/04/20 History Allergies Allergy/AdvReac Type Severity Reaction Status Date / Time venom-wasp [Wasp Venom] Allergy Severe Swelling Verified 10/04/20 06:51 adhesive Allergy Unknown Rash/Hives Verified 10/04/20 06:51 amoxicillin [Amoxicillin] Allergy Unknown Rash/Hives, Verified 10/04/20 06:51 itching fenofibrate nanocrystallized Allergy Unknown Rash/Hives,joint Verified 10/04/20 06:51 [From Tricor] pain fenofibrate,micronized Allergy Unknown Rash/Hives, Verified 10/04/20 06:51 [From Tricor] joint pain hydrochlorothiazide Allergy Unknown Rash/Hives Verified 10/04/20 06:51 Neuromuscular Blockers, Allergy Unknown Rash/Hives Verified 10/04/20 06:51 Steroidal [Steroidal Neuromuscular Blockers] Penicillins Allergy Unknown Rash/Hives, Verified 10/04/20 06:51 red skin shellfish derived Allergy Unknown SKIN RED Verified 10/04/20 06:51 AND WARM simvastatin [From Zocor] Allergy Unknown Rash/Hives, Verified 10/04/20 06:51 joint pain Znwkyms-Obi-Ngy Reductase Allergy Unknown Rash/Hives, Verified 10/04/20 06:51 Inhibitor joint pain venom-honey bee Allergy Unknown Swelling Verified 10/04/20 06:51 [bee venom (honey bee)] cat dander Allergy Rash/Hives Verified 10/04/20 06:51 ciprofloxacin HCl Allergy Unknown Verified 10/04/20 06:51 [From Cipro] sulfamethoxazole Allergy Rash/Hives Verified 10/04/20 06:51 talc Allergy Rash/Hives Verified 10/04/20 06:51 walnut Allergy Rash/Hives Verified 10/04/20 06:51 clarithromycin AdvReac warm and Verified 10/04/20 06:51 flushed minocycline AdvReac warm and Verified 10/04/20 06:51 flushed prednisone AdvReac Nausea Verified 10/04/20 06:51 soy AdvReac Nausea & Verified 10/04/20 06:51 Vomiting Physical Exam Vitals: Vital Signs Temp Pulse Pulse Resp BP BP Pulse Ox 10/04/20 14:19 98.8 F 89 18 118/52 100 10/04/20 14:00 89 18 10/04/20 12:15 84 18 117/68 100 10/04/20 11:58 79 16 124/68 100 10/04/20 11:40 79 18 123/64 99 10/04/20 11:25 83 16 122/64 100 10/04/20 11:10 88 18 123/85 100 10/04/20 10:55 79 16 121/71 99 10/04/20 10:39 85 18 137/76 100 10/04/20 10:10 97.8 F 100 20 169/89 100 10/04/20 08:32 97.7 F 93 16 123/66 98 10/04/20 08:00 84 18 10/04/20 04:56 90 17 143/60 97 10/04/20 02:39 90 18 148/92 100 10/04/20 01:23 98.4 F 101 H 22 151/77 100 Intake and Output 10/04/20 10/04/20 10/04/20 06:59 14:59 22:59 Intake Total 100 Output Total 200 Balance -100 Intake: Intake, IV Titration 100 Amount Sodium Ferric Gluconat- 100 Sucrose 125 mg In Sodium Chloride 0.9% 100 ml @ 100 mls/hr IVPB ONCE ONE Rx#:[id number] Output: Urine 200 Other: Weight 74.843 kg 74.843 kg PHYSICAL EXAMINATION: GENERAL: The patient is alert and oriented x3, not in any acute distress. Well developed, well nourished. HEENT: Pupils are round and equally reacting to light. EOMI. No scleral icterus. No conjunctival pallor. Normocephalic, atraumatic. No pharyngeal erythema. No th yromegaly. CARDIOVASCULAR: S1 and S2 present. No murmurs, rubs, or gallops. PULMONARY: Chest is clear to auscultation, no wheezing or crackles. ABDOMEN: Distended abdomen, post paracentesis patient still has some ascites although not tense ascites normoactive bowel sounds. No palpable organomegaly. MUSCULOSKELETAL: No joint swelling or deformity. EXTREMITIES: No cyanosis, clubbing, or pedal edema. NEUROLOGICAL: Significant generalized weakness muscle atrophy at both lower limbs SKIN: No rashes. Results CBC & Chem 7: 10/04/20 02:09 10/04/20 02:09 Labs: Abnormal Lab Results - Last 24 Hours (Table) 10/04/20 10/04/20 10/04/20 Range/Units 02:09 02:09 08:37 RBC 3.65 L (3.80-5.40) m/uL Hgb 8.3 L (11.4-16.0) gm/dL Hct 28.7 L (34.0-46.0) % MCV 78.6 L (80.0-100.0) fL MCH 22.8 L (25.0-35.0) pg MCHC 29.0 L (31.0-37.0) g/dL RDW 23.2 H (11.5-15.5) % Lymphocytes # 0.6 L (1.0-4.8) k/uL PT 12.9 H (9.0-12.0) sec INR 1.3 H (<1.2) Sodium 126 L (137-145) mmol/L Chloride 96 L (98-107) mmol/L BUN 24 H (7-17) mg/dL Glucose 140 H (74-99) mg/dL AST 37 H (14-36) U/L Creatine Kinase 25 L (30-135) U/L Total Protein 5.1 L (6.3-8.2) g/dL Albumin 3.0 L (3.5-5.0) g/dL Lipase 527 H (23-300) U/L Thrombosis Risk Factor Assmnt - Choose All That Apply Any of the Below Risk Factors Present?: Yes Each Factor Represents 1 point: Obesity (BMI >25) Other Risk Factors: Yes Each Risk Factor Represents 2 Points: Patient confined to bed Each Risk Factor Represents 3 Points: Age 75 years or older Other congenital or acquired thrombophilia - If yes, enter type in comment: No Thrombosis Risk Factor Assessment Total Risk Factor Score: 6 Thrombosis Risk Factor Assessment Level: High Risk Assessment and Plan Plan: --Abdominal distention and abdominal discomfort: Secondary to ascites which improved after a therapeutic paracentesis. -Non-alcoholic steatohepatitis leading to cirrhosis -Hyponatremia secondary to diuretics which will be held temporarily since she received the paracentesis anyways. Hold off on diuretics for now can be resumed upon discharge -Multiple falls secondary to generalized deconditioning from age-related muscle atrophy in from cirrhosis. Physical therapy and occupational therapy were consulted -History of atrial fibrillation: Patient is on anti-correlation which will be resumed patient is presently rate controlled probably paroxysmal A. fib -Asthma without any acute exacerbation -Type 2 diabetes mellitus next and-gastroesophageal reflux disease -Hyperlipidemia -Hypertension -History of PE in the past -Hypothyroidism
[2020-10-04] MEDS: MIDODRINE 5 MG TAB PO SCH (18:05)
[2020-10-04] MEDS ORDERED: MONTELUKAST 10 MG TAB PO SCH (22:00)
[2020-10-04] MEDS: APIXABAN 5 MG TAB PO SCH (22:36)
[2020-10-05 05:14] VITALS: BP 123/69; PULSE 105; RESP 17; TEMP 98.6
[2020-10-05] MEDS ORDERED: LEVOTHYROXINE 25 MCG TAB PO SCH (07:00)
[2020-10-05 07:10] LABS: Glucose,Whole Blood 118 mg/dL (75-99)
[2020-10-05] MEDS ORDERED: PANTOPRAZOLE 40 MG TABLET PO SCH (07:30)
[2020-10-05] MEDS: MIDODRINE 5 MG TAB PO SCH (07:36)
[2020-10-05] MEDS ORDERED: NON FORMULARY DRUG (Lutein [Lutein] 10 MG Tablet) PO SCH (09:00)
[2020-10-05] MEDS: APIXABAN 5 MG TAB PO SCH (09:44)
[2020-10-05] MEDS ORDERED: CHOLECALCIFEROL 25 MCG (1000 IU) TABLET PO SCH (10:00)
[2020-10-05] MEDS ORDERED: OXYBUTYNIN 10 MG TAB.ER.24 PO SCH (10:00)
--- NOTE | 2020-10-05 11:03 | P.DS ---
Providers Date of admission: 10/04/20 02:11 Attending physician: Bg Ayon Primary care physician: [facility] Course: 80-year-old female came in with the diffuse abdominal distention abdominal discomfort found to have significant ascites patient underwent the acetic fluid. Patient does have history of cirrhosis. 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 Patient has multiple other electrolyte abnormalities secondary to diuretics. Patient had her acidosis today with removal of around 7.5 L of ascitic fluid. After the procedure patient has significant improvement in pain. Patient has been falling lately it home. Patient appears to have significant muscle atrophy in both the legs does appear to have weakness. Physical therapy occupational therapy are being consulted and patient will be admitted. 10/05/2020 patient is clinically doing well at this time I do not have an a little lites available at this time will order basic metabolic profile for outpatient to check the serum sodium if it continues to be low patient may need follow-up with with nephrology or titration of diuretics.b&Patient was evaluated by PT and OT, ambulating well with walker PHYSICAL EXAMINATION: GENERAL: The patient is alert and oriented x3, not in any acute distress. Well developed, well nourished. HEENT: Pupils are round and equally reacting to light. EOMI. No scleral icterus. No conjunctival pallor. Normocephalic, atraumatic. No pharyngeal erythema. No thyromegaly. CARDIOVASCULAR: S1 and S2 present. No murmurs, rubs, or gallops. PULMONARY: Chest is clear to auscultation, no wheezing or crackles. ABDOMEN: Distended abdomen, post paracentesis patient still has some ascites although not tense ascites normoactive bowel sounds. No palpable organomegaly. MUSCULOSKELETAL: No joint swelling or deformity. EXTREMITIES: No cyanosis, clubbing, or pedal edema. NEUROLOGICAL: Significant generalized weakness muscle atrophy at both lower limbs SKIN: No rashes. Assessment and Plan Plan: --Abdominal distention and abdominal discomfort: Secondary to ascites which improved after a therapeutic paracentesis. -Non-alcoholic steatohepatitis leading to cirrhosis -Hyponatremia secondary to diuretic, diuretics were held for day. -Multiple falls secondary to generalized deconditioning from age-related muscle atrophy in from cirrhosis. Physical therapy and occupational therapy evaluation as mentioned above -History of atrial fibrillation: Patient is on anti-correlation which will be resumed patient is presently rate controlled probably paroxysmal A. fib -Asthma without any acute exacerbation -Type 2 diabetes mellitus next and-gastroesophageal reflux disease -Hyperlipidemia -Hypertension -History of PE in the past -Hypothyroidism Patient Condition at Discharge: Good Plan - Discharge Summary Discharge Rx Participant: No New Discharge Prescriptions: Continue Montelukast [Singulair] 10 mg PO HS@2200 Levothyroxine Sodium [Synthroid] 25 mcg PO DAILY@0700 Oxybutynin Chloride [Ditropan XL] 10 mg PO DAILY@1000 HYDROcodone/APAP 5-325MG [[place] 5-325] 1 tab PO QID@07,10,12,16 Evolocumab [Repatha Sureclick] 140 mg SQ Q14D EPINEPHrine (Auto Inject) [Epipen] 0.3 mg IM ONCE PRN PRN Reason: Anaphylaxis Omeprazole 40 mg PO DAILY Apixaban [Eliquis] 5 mg PO BID@1000,2200 #0 Albuterol Inhaler [Ventolin Hfa Inhaler] 1 puff INHALATION RT-Q4H PRN PRN Reason: Shortness Of Breath Cholecalciferol [Vitamin D3 (25 Mcg = 1000 Iu)] 25 mcg PO DAILY@1000 Lutein 10 mg PO DAILY Folic Acid 1 mg PO DAILY@1200 30 Days #30 tab Acetaminophen Tab [Tylenol] 650 mg PO Q6HR PRN tab PRN Reason: Mild Pain Or Fever > 100.5 Thiamine [Vitamin B-1] 100 mg PO DAILY@1200 30 Days #30 tab Midodrine [ProAmatine] 2.5 mg PO AC-TID Furosemide [Lasix] 40 mg PO BID Discharge Medication List Levothyroxine Sodium [Synthroid] 25 mcg PO DAILY@0700 03/23/14 [History] Montelukast [Singulair] 10 mg PO HS@2200 03/23/14 [History] Oxybutynin Chloride [Ditropan XL] 10 mg PO DAILY@1000 03/23/14 [History] HYDROcodone/APAP 5-325MG [[place] 5-325] 1 tab PO QID@07,10,12,16 06/13/15 [History] Evolocumab [Repatha Sureclick] 140 mg SQ Q14D 03/14/20 [History] EPINEPHrine (Auto Inject) [Epipen] 0.3 mg IM ONCE PRN 04/13/20 [History] Omeprazole 40 mg PO DAILY 06/20/20 [History] Apixaban [Eliquis] 5 mg PO BID@1000,2200 #0 08/20/20 [Rx] Albuterol Inhaler [Ventolin Hfa Inhaler] 1 puff INHALATION RT-Q4H PRN 08/31/20 [History] Cholecalciferol [Vitamin D3 (25 Mcg = 1000 Iu)] 25 mcg PO DAILY@1000 08/31/20 [History] Lutein 10 mg PO DAILY 08/31/20 [History] Acetaminophen Tab [Tylenol] 650 mg PO Q6HR PRN tab 09/03/20 [Rx] Folic Acid 1 mg PO DAILY@1200 30 Days #30 tab 09/03/20 [Rx] Thiamine [Vitamin B-1] 100 mg PO DAILY@1200 30 Days #30 tab 09/03/20 [Rx] Midodrine [ProAmatine] 2.5 mg PO AC-TID 09/10/20 [History] Furosemide [Lasix] 40 mg PO BID 10/04/20 [History] Follow up Appointment(s)/Referral(s): Shea Amezcua MD [Primary Care Provider] - 10/10/20 10:00 am [facility] Visiting Nurse, [NON-STAFF] - 1 Week Discharge Disposition: HOME WITH HOME HEALTH SERVICES
[2020-10-05] MEDS ORDERED: FOLIC ACID 1 MG TAB PO SCH (12:00)
== END 2020-10-05 10:50 | disposition home health service (06) ==
LOC: EC 01:20 → 6NMEDSUR 02:11 → 5NMEDONC 15:09
PROVIDERS: ADMIT Hospitalist; ATTEND Hospitalist
DX: R18.8 Other ascites (principal); K75.81 Nonalcoholic steatohepatitis (NASH); K74.60 Unspecified cirrhosis of liver; E78.5 Hyperlipidemia, unspecified; E87.1 Hypo-osmolality and hyponatremia; E03.9 Hypothyroidism, unspecified; R29.6 Repeated falls; J45.909 Unspecified asthma, uncomplicated; E11.41 Type 2 diabetes mellitus with diabetic mononeuropathy; M62.50 Muscle wasting and atrophy, not elsewhere classified, unspecified site; M79.7 Fibromyalgia; N32.81 Overactive bladder; K21.9 Gastro-esophageal reflux disease without esophagitis; I48.0 Paroxysmal atrial fibrillation; I10 Essential (primary) hypertension; E87.2 Acidosis; T50.2X5A Adverse effect of carbonic-anhydrase inhibitors, benzothiadiazides and other diuretics, initial encounter; Z79.890 Hormone replacement therapy; Z90.710 Acquired absence of both cervix and uterus; Z87.891 Personal history of nicotine dependence; Z85.828 Personal history of other malignant neoplasm of skin; Z86.711 Personal history of pulmonary embolism; Z79.899 Other long term (current) drug therapy; Z79.01 Long term (current) use of anticoagulants; Z20.822 Contact with and (suspected) exposure to COVID-19
CPT/HCPCS: 96376 ×2; 96365; 96375; 99285; 97162; 80053; 82140; 82150; 82550; 82553; 83605; 83690; 85025; 85610; 81003; 87635; 71101; 72170; 49083; G0378 ×3; J2270; J2916

== ENCOUNTER 2020-10-12 12:11 | Day surgery (SDC) | payer MEDICARE ==
[2020-10-12 13:03] VITALS: RESP 18; TEMP 97.8
[2020-10-12 13:17] LABS: Mean Platelet Volume 7.8; Platelet Count 339 k/uL (150-450)
[2020-10-12 13:19] LABS: INR 1.4 (<1.2)
[2020-10-12] MEDS: ALBUMIN HUMAN 25% 50 ML in EMPTY BAG 1 BAG IVPB SCH ×3 (14:06→15:02)
[2020-10-12 16:07] VITALS: BP 121/62; PULSE 76
--- NOTE | 2020-10-16 10:38 | US ---
Ultrasound-guided paracentesis. DATE OF EXAM: 10/12/2020 CLINICAL HISTORY: Ascites The procedure was discussed with the patient. The risks, complications, benefits, and alternatives we re discussed and any questions were answered. Informed consent was obtained. The patient was placed s upine on the ultrasound table and prepped and draped in the usual sterile fashion. All elements of maximal barrier technique were utilized. Under ultrasound guidance, access into the left lower quadrant was obtained, via the paracentesis catheter system and direct ultrasound guidance . Approximately 6.4 liters of straw-colored fluid was removed. The patient was stable throughout the pr ocedure and remained stable upon discharge from Department of Radiology. IMPRESSION: Successful paracentesis under ultrasound guidance.
== END 2020-10-12 16:15 | disposition home or self-care (01) ==
LOC: RADPROMAIN 12:11
PROVIDERS: ATTEND Internal Medicine Gastroenterology
DX: R18.8 Other ascites (principal); K74.60 Unspecified cirrhosis of liver
CPT/HCPCS: 82565; 82947; 85049; 85610; 36415; 49083; P9047

== ENCOUNTER 2020-10-19 08:48 | Day surgery (SDC) | payer MEDICARE ==
[2020-10-19 09:05] VITALS: RESP 16; TEMP 97.7
[2020-10-19 09:44] LABS: Mean Platelet Volume 7.6; Platelet Count 418 k/uL (150-450)
[2020-10-19 10:00] LABS: INR 1.2 (<1.2); Prothrombin Time 12.1 sec (9.0-12.0)
[2020-10-19] MEDS: ALBUMIN HUMAN 25% 50 ML in EMPTY BAG 1 BAG IVPB SCH ×4 (10:57→11:59)
[2020-10-19 12:05] VITALS: BP 115/62; PULSE 74
--- NOTE | 2020-10-19 13:02 | US ---
EXAMINATION TYPE: US guide vascular access DATE OF EXAM: 10/19/2020 HISTORY: Needs IV access for albumin therapy. PROCEDURE: Maximal barrier technique utilized. The skin overlying the basilic vein was localized with ultrasoun d and the vein was noted to be compressible and patent by ultrasound and ultrasound image was obtaine d and submitted on patient's chart. Under direct ultrasound guidance a 20-gauge Angiocath was advanc ed into the vein and fixed in place. Catheter was aspirated and flushed with sterile saline. Hemost asis achieved. Catheter fixed in place. No immediate complication. Single ultrasound image document s the procedure. IMPRESSION: Ultrasound-guided venipuncture, this procedure performed by the undersigned.
--- NOTE | 2020-10-19 15:40 | US ---
EXAMINATION TYPE: US paracentesis abd w/image DATE OF EXAM: 10/19/2020 COMPARISON: NONE HISTORY: Ascites. PROCEDURE: Maximal barrier technique was utilized. The skin overlying a suitable pocket of fluid was localized with ultrasound and the overlying skin was prepped and draped. Ultrasound was utilized with sterile technique. Lidocaine was used for local anesthesia and a skin saurabh made with a scalpel. Catheter was advanced under direct ultrasound guidance into a suitable pocket of fluid and approximately 6.4 liter s of serous fluid were removed. Catheter was withdrawn and hemostasis achieved. There is no immedia te complication; the patient is discharged in stable condition. IMPRESSION: STATUS POST ULTRASOUND GUIDED PARACENTESIS FOR PALLIATION OF ASCITES. THIS PROCEDURE WA S PERFORMED BY THE UNDERSIGNED.
== END 2020-10-19 12:15 | disposition home or self-care (01) ==
LOC: RADPROMAIN 08:48
PROVIDERS: ATTEND Nurse Practitioner
DX: R18.8 Other ascites (principal); K74.60 Unspecified cirrhosis of liver
CPT/HCPCS: 82565; 82947; 85049; 85610; 36415; 76937; 49083; P9047

== ENCOUNTER 2020-10-26 07:13 | Day surgery (SDC) | payer MEDICARE ==
[~2020-10-26 07:13] MED LIST changes: -ALBUMIN HUMAN 25% 50 ML in EMPTY BAG 1 BAG IVPB SCH; +SODIUM CHLORIDE 0.9% 500 ML 500 ML IV SCH
[2020-10-26 09:06] LABS: Mean Platelet Volume 7.5; Platelet Count 381 k/uL (150-450)
[2020-10-26 09:12] LABS: INR 1.2 (<1.2); Prothrombin Time 12.5 sec (9.0-12.0)
[2020-10-26 09:35] VITALS: TEMP 97.9
[2020-10-26] MEDS: ALBUMIN HUMAN 25% 50 ML in EMPTY BAG 1 BAG IVPB SCH ×4 (10:43→12:14)
[2020-10-26 13:28] VITALS: BP 109/60; PULSE 76; RESP 16
--- NOTE | 2020-10-26 15:32 | US ---
EXAMINATION TYPE: US paracentesis abd w/image DATE OF EXAM: 10/26/2020 COMPARISON: NONE HISTORY: Ascites. PROCEDURE: Maximal barrier technique was utilized. The skin overlying a suitable pocket of fluid was localized with ultrasound and the overlying skin was prepped and draped. Ultrasound was utilized with sterile technique. Lidocaine was used for local anesthesia and a skin saurabh made with a scalpel. Catheter was advanced under direct ultrasound guidance into a suitable pocket of fluid and approximately 7.8 liter s of serous fluid were removed. Catheter was withdrawn and hemostasis achieved. There is no immedia te complication; the patient is discharged in stable condition. IMPRESSION: STATUS POST ULTRASOUND GUIDED PARACENTESIS FOR PALLIATION OF ASCITES. THIS PROCEDURE WA S PERFORMED BY THE UNDERSIGNED.
== END 2020-10-26 12:10 | disposition home or self-care (01) ==
LOC: RADPROMAIN 07:13
PROVIDERS: ATTEND Internal Medicine Gastroenterology
DX: R18.8 Other ascites (principal)
CPT/HCPCS: 36410; 76937; 82565; 82947; 85049; 85610; 36415; 49083; C1751; P9047

== ENCOUNTER 2020-11-02 11:09 | Inpatient (IN) | payer MEDICARE ==
[2020-11-02 09:11] LABS: Anisocytosis Slight; Basophils % (A) 0 %; Eosinophils # (A) 0.1 k/uL (0-0.7); Eosinophils % (A) 2 %; HCT 22.4 % (34.0-46.0); Hypochromasia Marked; Lymphocytes # (A) 0.4 k/uL (1.0-4.8); Lymphocytes % (A) 8 %; MCH 21.1 pg (25.0-35.0); MCHC 28.8 g/dL (31.0-37.0); Mean Platelet Volume 7.6; Microcytosis Moderate; Monocytes # (A) 0.3 k/uL (0-1.0); Monocytes % (A) 6 %; Neutrophils # (A) 4.2 k/uL (1.3-7.7); Neutrophils % (A) 82 %; Platelet Count 353 k/uL (150-450); Poikilocytosis Slight; RBC 3.06 m/uL (3.80-5.40); RDW 17.7 % (11.5-15.5); WBC 5.2 k/uL (3.8-10.6)
[2020-11-02 09:29] LABS: HGB 6.5 gm/dL (11.4-16.0)
[2020-11-02 09:30] LABS: MCV 73.2 fL (80.0-100.0)
[2020-11-02 09:33] LABS: Albumin 2.7 g/dL (3.5-5.0); Calcium 8.1 mg/dL (8.4-10.2); Potassium 4.4 mmol/L (3.5-5.1); Total Bilirubin 0.4 mg/dL (0.2-1.3); Total Protein 4.6 g/dL (6.3-8.2)
[2020-11-02 09:38] LABS: INR 1.2 (<1.2); Prothrombin Time 12.3 sec (9.0-12.0)
[2020-11-02] MEDS: ALBUMIN HUMAN 25% 50 ML in EMPTY BAG 1 BAG IVPB SCH ×4 (10:14→11:24)
--- NOTE | 2020-11-02 11:56 | US ---
Ultrasound-guided paracentesis. DATE OF EXAM: 11/02/2020 CLINICAL HISTORY: Ascites The procedure was discussed with the patient. The risks, complications, benefits, and alternatives we re discussed and any questions were answered. Informed consent was obtained. The patient was placed s upine on the ultrasound table and prepped and draped in the usual sterile fashion. All elements of maximal barrier technique were utilized. Under ultrasound guidance, access into the right lower quadrant was obtained, via the paracentesis catheter system and direct ultrasound guidanc e. Approximately 5.9 liters of straw-colored fluid was removed. The patient was stable throughout the pr ocedure and remained stable upon discharge from Department of Radiology. IMPRESSION: Successful paracentesis under ultrasound guidance.
[2020-11-02 12:58] LABS: Anisocytosis Slight; Basophils % (A) 0 %; Eosinophils % (A) 1 %; Hypochromasia Marked; Lymphocytes # (A) 0.3 k/uL (1.0-4.8); Lymphocytes % (A) 8 %; MCH 21.9 pg (25.0-35.0); MCHC 30.7 g/dL (31.0-37.0); MCV 71.3 fL (80.0-100.0); Mean Platelet Volume 7.8; Microcytosis Marked; Monocytes # (A) 0.3 k/uL (0-1.0); Monocytes % (A) 8 %; Neutrophils # (A) 2.8 k/uL (1.3-7.7); Neutrophils % (A) 81 %; Platelet Count 236 k/uL (150-450); Poikilocytosis Slight; RBC 2.69 m/uL (3.80-5.40); RDW 18.2 % (11.5-15.5); WBC 3.5 k/uL (3.8-10.6)
--- NOTE | 2020-11-02 13:03 | XR ---
EXAMINATION TYPE: XR chest 2V DATE OF EXAM: 11/02/2020 COMPARISON: 10/04/2020 TECHNIQUE: PA and lateral views submitted. HISTORY: Weakness FINDINGS: The lungs are clear and there is no pneumothorax, pleural effusion, or focal pneumonia. Postsurgica l change overlying the cervical spine and bilateral humeri. Diffuse osteopenia. Heart size normal. No overt failure. Hypertrophic and degenerative change of the spine. IMPRESSION: 1. No acute process.
[2020-11-02 13:04] LABS: INR 1.3 (<1.2)
[2020-11-02 13:05] LABS: HCT 19.2 % (34.0-46.0); HGB 5.9 gm/dL (11.4-16.0)
[2020-11-02 13:06] LABS: Albumin 2.8 g/dL (3.5-5.0); Calcium 8.2 mg/dL (8.4-10.2); Magnesium 2.2 mg/dL (1.6-2.3); Potassium 4.1 mmol/L (3.5-5.1); Total Bilirubin 0.5 mg/dL (0.2-1.3); Total Protein 4.7 g/dL (6.3-8.2)
[2020-11-02 14:01] LABS: Appearance,Urine Clear (Clear); Bilirubin,Urine Negative (Negative); Blood,Urine Negative (Negative); Color,Urine Yellow; Glucose,Urine (UA) Negative (Negative); Ketones,Urine Negative (Negative); Leukocyte Esterase,Urine Negative (Negative); Nitrite,Urine Negative (Negative); PH, Urine 5.5 (5.0-8.0); Protein,Urine Negative (Negative); Specific Gravity,Urine 1.011 (1.001-1.035); Urobilinogen,Urine <2.0 mg/dL (<2.0)
[2020-11-02] MEDS ORDERED: TEMAZEPAM 15 MG CAP PO PRN (14:20)
[2020-11-02] MEDS ORDERED: NALOXONE 0.4 MG/ML 1 ML VIAL IV PRN (14:20)
--- NOTE | 2020-11-02 14:20 | ED ---
Weakness HPI - General Chief complaint: Weakness Stated complaint: came over from radiology Dr anton an ER evaluation Time Seen by Provider: 11/02/20 12:04 Source: patient Mode of arrival: wheelchair Limitations: no limitations - History of Present Illness Initial comments: Patient sent to the [facility] department for weakness. She has no specific chest p ain or belly pain or back pain. She has no nausea or vomiting. Her symptoms of gotten worse for several days. She has a history of recurrent ascites. She just recently had a paracentesis. She has had no sick a be. She has no swelling in the arms or legs that is new for her, but does have some baseline edema. - Related Data Home Medications Medication Instructions Recorded Confirmed Levothyroxine Sodium [Synthroid] 25 mcg PO DAILY@0700 03/23/14 11/02/20 Montelukast [Singulair] 10 mg PO HS@2200 03/23/14 11/02/20 Oxybutynin Chloride [Ditropan XL] 10 mg PO DAILY@1000 03/23/14 11/02/20 HYDROcodone/APAP 5-325MG [[place] 1 tab PO QID@07,10,12,16 06/13/15 11/02/20 5-325] Evolocumab [Repatha Sureclick] 140 mg SQ Q14D 03/14/20 11/02/20 EPINEPHrine (Auto Inject) [Epipen] 0.3 mg IM ONCE PRN 04/13/20 11/02/20 Omeprazole 40 mg PO DAILY 06/20/20 11/02/20 Albuterol Inhaler [Ventolin Hfa 1 puff INHALATION RT-Q4H PRN 08/31/20 11/02/20 Inhaler] Cholecalciferol [Vitamin D3 (25 25 mcg PO DAILY@1000 08/31/20 11/02/20 Mcg = 1000 Iu)] Lutein 10 mg PO DAILY 08/31/20 11/02/20 Midodrine [ProAmatine] 2.5 mg PO AC-TID 09/10/20 11/02/20 Furosemide [Lasix] 25 mg PO BID 10/04/20 11/02/20 Escitalopram [Lexapro] 5 mg PO DAILY 10/12/20 11/02/20 Previous Rx's Medication Instructions Recorded Apixaban [Eliquis] 5 mg PO BID@1000,2200 #0 08/20/20 Acetaminophen Tab [Tylenol] 650 mg PO Q6HR PRN tab 09/03/20 Folic Acid 1 mg PO DAILY@1200 30 Days #30 tab 09/03/20 Thiamine [Vitamin B-1] 100 mg PO DAILY@1200 30 Days #30 09/03/20 tab Allergies Allergy/AdvReac Type Severity Reaction Status Date / Time venom-wasp [Wasp Venom] Allergy Severe Swelling Verified 11/02/20 11:24 adhesive Allergy Unknown Rash/Hives Verified 11/02/20 11:24 amoxicillin [Amoxicillin] Allergy Unknown Rash/Hives, Verified 11/02/20 11:24 itching fenofibrate nanocrystallized Allergy Unknown Rash/Hives,joint Verified 11/02/20 11:24 [From Tricor] pain fenofibrate,micronized Allergy Unknown Rash/Hives, Verified 11/02/20 11:24 [From Tricor] joint pain hydrochlorothiazide Allergy Unknown Rash/Hives Verified 11/02/20 11:24 Neuromuscular Blockers, Allergy Unknown Rash/Hives Verified 11/02/20 11:24 Steroidal [Steroidal Neuromuscular Blockers] Penicillins Allergy Unknown Rash/Hives, Verified 11/02/20 11:24 red skin shellfish derived Allergy Unknown SKIN RED Verified 11/02/20 11:24 AND WARM simvastatin [From Zocor] Allergy Unknown Rash/Hives, Verified 11/02/20 11:24 joint pain Aalwwdx-San-Hvd Reductase Allergy Unknown Rash/Hives, Verified 11/02/20 11:24 Inhibitor joint pain venom-honey bee Allergy Unknown Swelling Verified 11/02/20 11:24 [bee venom (honey bee)] cat dander Allergy Rash/Hives Verified 11/02/20 11:24 ciprofloxacin HCl Allergy Unknown Verified 11/02/20 11:24 [From Cipro] sulfamethoxazole Allergy Rash/Hives Verified 11/02/20 11:24 talc Allergy Rash/Hives Verified 11/02/20 11:24 walnut Allergy Rash/Hives Verified 11/02/20 11:24 clarithromycin AdvReac warm and Verified 11/02/20 11:24 flushed minocycline AdvReac warm and Verified 11/02/20 11:24 flushed prednisone AdvReac Nausea Verified 11/02/20 11:24 soy AdvReac Nausea & Verified 11/02/20 11:24 Vomiting Review of Systems ROS Statement: Those systems with pertinent positive or pertinent negative responses have been documented in the HPI. ROS Other: All systems not noted in ROS Statement are negative. Past Medical History Past Medical History: Atrial Fibrillation, Asthma, Cancer, Diabetes Mellitus, Fibromyalgia, GERD/Reflux, Hyperlipidemia, Hypertension, Liver Disease, Osteoarthritis (OA), Pulmonary Embolus (PE), Thyroid Disorder Additional Past Medical History / Comment(s): Pt recently admitted to [facility] on 08/14/20 with decompensated liver cirrhosis 2ndary to [place] with ascities/acute diarrhea and anemia with transfusion. Other hx: Nonalcoholic fatty liver, liver cirrhosis, ascities with multiple paracentesis and has albumin infusions, esophageal varicies with banding, NIDDM type II, neuropathy bilateral legs/feet, spinal stenosis/low back pain with R side radiculopathy and lately has had pain down L leg, recent bilateral lower leg edema, PE after leg fracture, overactive bladder, hypothyroid, sinus problems, vertigo, bilateral macular degeneration History of Any Multi-Drug Resistant Organisms: None Reported Past Surgical History: Adenoidectomy, Appendectomy, Back Surgery, Breast Surgery, Hysterectomy, Joint Replacement, Orthopedic Surgery, Tonsillectomy Additional Past Surgical History / Comment(s): Multiple paracentesis, lower back and cervical fusions, bilateral total knees, bilateral total shoulders, bilateral carpal tunnel releases, bilateral hand trigger finger releases, R foot bone spur removed, R leg fracture/hardware removed, R breast fatty tumor removed, EGD with esophageal varicies banded, colonoscopy, skin cancer removed, bilateral cataracts removed. Past Anesthesia/Blood Transfusion Reactions: Motion Sickness, Postoperative Nausea & Vomiting (PONV) Additional Past Anesthesia/Blood Transfusion Reaction / Comment(s): Patient received blood in 1959. Past Psychological History: No Psychological Hx Reported Smoking Status: Former smoker Past Alcohol Use History: None Reported Past Drug Use History: None Reported - Past Family History Mother History Unknown: Yes Family Medical History: No Reported History Additional Family Medical History / Comment(s): Mother was healthy and lived to be 87yrs old. Father History Unknown: Yes Additional Family Medical History / Comment(s): Father in a MVA General Exam Limitations: no limitations General appearance: alert, in no apparent distress Head exam: Present: atraumatic, normocephalic, normal inspection Eye exam: Present: normal appearance, PERRL, EOMI. Absent: scleral icterus, conjunctival injection, periorbital swelling ENT exam: Present: normal exam, mucous membranes moist Neck exam: Present: normal inspection. Absent: tenderness, meningismus, lymphadenopathy Respiratory exam: Present: normal lung sounds bilaterally. Absent: respiratory distress, wheezes, rales, rhonchi, stridor Cardiovascular Exam: Present: regular rate, normal rhythm, normal heart sounds. Absent: systolic murmur, diastolic murmur, rubs, gallop, clicks GI/Abdominal exam: Present: soft, normal bowel sounds. Absent: distended, tend erness, guarding, rebound, rigid Extremities exam: Present: normal inspection, full ROM, normal capillary refill. Absent: tenderness, pedal edema, joint swelling, calf tenderness Back exam: Present: normal inspection Neurological exam: Present: alert, oriented X3, CN II-XII intact Psychiatric exam: Present: normal affect, normal mood Skin exam: Present: warm, dry, intact, normal color. Absent: rash Course Vital Signs 11/02/20 11/02/20 11/02/20 09:07 10:28 11:05 Temperature 98.1 F Pulse Rate Pulse Rate [ 78 112 H 104 H Pulse Oximetery ] Respiratory 18 18 18 Rate Blood Pressure Blood Pressure 112/57 114/56 111/59 [Left Arm] O2 Sat by Pulse 100 100 100 Oximetry 11/02/20 11:17 Temperature 97.7 F Pulse Rate 89 Pulse Rate [ Pulse Oximetery ] Respiratory 20 Rate Blood Pressure 102/60 Blood Pressure [Left Arm] O2 Sat by Pulse 100 Oximetry EKG Findings - EKG Comments: EKG Findings:: Twelve-lead EKG shows ventricular rate 76 bpm, no P waves are present, QRS complexes appear normal, no ST elevation or depression, interpreted by me as atrial fibrillation. Procedures - [place] Protocol (Time Out) Procedure Performed:: paracentesis Performing Provider: Adam Frausto Nurse: Destiny Spencer Patient Identification (2 identifiers required): Chart, Verbal, Arm Band, Name, Birthdate, Medical Record Number Patient/Legal Crisis Intervention Counselor has Confirmed: Identity, Site, Procedure, Consent Site: rt abdomen puncture Site Marked: Not Applicable Site Verified With Patient/Guardian: Yes (u/s guided) Medical Decision Making - Medical Decision Making Patient presents with weakness. Her sodium is low. Her hemoglobin is very low. She is not L [place] for her atrial flutter relation. I ordered transfusion of PRBCs. She will require admission to the hospital. - Lab Data Result diagrams: 11/02/20 12:39 11/02/20 12:39 Lab Results 11/02/20 11/02/20 11/02/20 Range/Units 08:53 08:54 08:54 WBC 5.2 (3.8-10.6) k/uL RBC 3.06 L (3.80-5.40) m/uL Hgb 6.5 L* D (11.4-16.0) gm/dL Hct 22.4 L (34.0-46.0) % MCV 73.2 L D (80.0-100.0) fL MCH 21.1 L (25.0-35.0) pg MCHC 28.8 L (31.0-37.0) g/dL RDW 17.7 H (11.5-15.5) % Plt Count 353 (150-450) k/uL MPV 7.6 Neutrophils % 82 % Lymphocytes % 8 % Monocytes % 6 % Eosinophils % 2 % Basophils % 0 % Neutrophils # 4.2 (1.3-7.7) k/uL Lymphocytes # 0.4 L (1.0-4.8) k/uL Monocytes # 0.3 (0-1.0) k/uL Eosinophils # 0.1 (0-0.7) k/uL Basophils # 0.0 (0-0.2) k/uL Hypochromasia Marked Poikilocytosis Slight Anisocytosis Slight Microcytosis Moderate PT 12.3 H (9.0-12.0) sec INR 1.2 H (<1.2) APTT (22.0-30.0) sec Sodium 122 L (137-145) mmol/L Potassium 4.4 (3.5-5.1) mmol/L Chloride 93 L (98-107) mmol/L Carbon Dioxide 21 L (22-30) mmol/L Anion Gap 8 mmol/L BUN 34 H (7-17) mg/dL Creatinine 1.14 H (0.52-1.04) mg/dL Est GFR (CKD-EPI)AfAm 53 (>60 ml/min/1.73 sqM) Est GFR (CKD-EPI)NonAf 46 (>60 ml/min/1.73 sqM) Glucose 140 H (74-99) mg/dL Plasma Lactic Acid [place] (0.7-2.0) mmol/L Calcium 8.1 L (8.4-10.2) mg/dL Magnesium (1.6-2.3) mg/dL Total Bilirubin 0.4 (0.2-1.3) mg/dL AST 26 (14-36) U/L ALT 13 (4-34) U/L Alkaline Phosphatase 105 (38-126) U/L Troponin I (0.000-0.034) ng/mL NT-Pro-B Natriuret Pep pg/mL Total Protein 4.6 L (6.3-8.2) g/dL Albumin 2.7 L (3.5-5.0) g/dL Urine Color Urine Appearance (Clear) Urine pH (5.0-8.0) Ur Specific [place] (1.001-1.035) Urine Protein (Negative) Urine Glucose (UA) (Negative) Urine Ketones (Negative) Urine Blood (Negative) Urine Nitrite (Negative) Urine Bilirubin (Negative) Urine Urobilinogen (<2.0) mg/dL Ur Leukocyte Esterase (Negative) Coronavirus (PCR) (Not Detectd) 11/02/20 11/02/20 11/02/20 Range/Units 12:39 12:39 12:39 WBC 3.5 L (3.8-10.6) k/uL RBC 2.69 L (3.80-5.40) m/uL Hgb 5.9 L* (11.4-16.0) gm/dL Hct 19.2 L* (34.0-46.0) % MCV 71.3 L (80.0-100.0) fL MCH 21.9 L (25.0-35.0) pg MCHC 30.7 L (31.0-37.0) g/dL RDW 18.2 H (11.5-15.5) % Plt Count 236 (150-450) k/uL MPV 7.8 Neutrophils % 81 % Lymphocytes % 8 % Monocytes % 8 % Eosinophils % 1 % Basophils % 0 % Neutrophils # 2.8 (1.3-7.7) k/uL Lymphocytes # 0.3 L (1.0-4.8) k/uL Monocytes # 0.3 (0-1.0) k/uL Eosinophils # 0.0 (0-0.7) k/uL Basophils # 0.0 (0-0.2) k/uL Hypochromasia Marked Poikilocytosis Slight Anisocytosis Slight Microcytosis Marked PT 13.0 H (9.0-12.0) sec INR 1.3 H (<1.2) APTT 25.0 (22.0-30.0) sec Sodium 124 L (137-145) mmol/L Potassium 4.1 (3.5-5.1) mmol/L Chloride 94 L (98-107) mmol/L Carbon Dioxide 21 L (22-30) mmol/L Anion Gap 9 mmol/L BUN 34 H (7-17) mg/dL Creatinine 1.09 H (0.52-1.04) mg/dL Est GFR (CKD-EPI)AfAm 56 (>60 ml/min/1.73 sqM) Est GFR (CKD-EPI)NonAf 49 (>60 ml/min/1.73 sqM) Glucose 98 (74-99) mg/dL Plasma Lactic Acid Ze[place] (0.7-2.0) mmol/L Calcium 8.2 L (8.4-10.2) mg/dL Magnesium 2.2 (1.6-2.3) mg/dL Total Bilirubin 0.5 (0.2-1.3) mg/dL AST 24 (14-36) U/L ALT 11 (4-34) U/L Alkaline Phosphatase 98 (38-126) U/L Troponin I (0.000-0.034) ng/mL NT-Pro-B Natriuret Pep pg/mL Total Protein 4.7 L (6.3-8.2) g/dL Albumin 2.8 L (3.5-5.0) g/dL Urine Color Urine Appearance (Clear) Urine pH (5.0-8.0) Ur Specific [place] (1.001-1.035) Urine Protein (Negative) Urine Glucose (UA) (Negative) Urine Ketones (Negative) Urine Blood (Negative) Urine Nitrite (Negative) Urine Bilirubin (Negative) Urine Urobilinogen (<2.0) mg/dL Ur Leukocyte Esterase (Negative) Coronavirus (PCR) (Not Detectd) 11/02/20 11/02/20 11/02/20 Range/Units 12:39 12:39 12:39 WBC (3.8-10.6) k/uL RBC (3.80-5.40) m/uL Hgb (11.4-16.0) gm/dL Hct (34.0-46.0) % MCV (80.0-100.0) fL MCH (25.0-35.0) pg MCHC (31.0-37.0) g/dL RDW (11.5-15.5) % Plt Count (150-450) k/uL MPV Neutrophils % % Lymphocytes % % Monocytes % % Eosinophils % % Basophils % % Neutrophils # (1.3-7.7) k/uL Lymphocytes # (1.0-4.8) k/uL Monocytes # (0-1.0) k/uL Eosinophils # (0-0.7) k/uL Basophils # (0-0.2) k/uL Hypochromasia Poikilocytosis Anisocytosis Microcytosis PT (9.0-12.0) sec INR (<1.2) APTT (22.0-30.0) sec Sodium (137-145) mmol/L Potassium (3.5-5.1) mmol/L Chloride (98-107) mmol/L Carbon Dioxide (22-30) mmol/L Anion Gap mmol/L BUN (7-17) mg/dL Creatinine (0.52-1.04) mg/dL Est GFR (CKD-EPI)AfAm (>60 ml/min/1.73 sqM) Est GFR (CKD-EPI)NonAf (>60 ml/min/1.73 sqM) Glucose (74-99) mg/dL Plasma Lactic Acid [place] 1.5 (0.7-2.0) mmol/L Calcium (8.4-10.2) mg/dL Magnesium (1.6-2.3) mg/dL Total Bilirubin (0.2-1.3) mg/dL AST (14-36) U/L ALT (4-34) U/L Alkaline Phosphatase (38-126) U/L Troponin I <0.012 (0.000-0.034) ng/mL NT-Pro-B Natriuret Pep 1010 pg/mL Total Protein (6.3-8.2) g/dL Albumin (3.5-5.0) g/dL Urine Color Urine Appearance (Clear) Urine pH (5.0-8.0) Ur Specific [place] (1.001-1.035) Urine Protein (Negative) Urine Glucose (UA) (Negative) Urine Ketones (Negative) Urine Blood (Negative) Urine Nitrite (Negative) Urine Bilirubin (Negative) Urine Urobilinogen (<2.0) mg/dL Ur Leukocyte Esterase (Negative) Coronavirus (PCR) (Not Detectd) 11/02/20 11/02/20 Range/Units 12:39 13:49 WBC (3.8-10.6) k/uL RBC (3.80-5.40) m/uL Hgb (11.4-16.0) gm/dL Hct (34.0-46.0) % MCV (80.0-100.0) fL MCH (25.0-35.0) pg MCHC (31.0-37.0) g/dL RDW (11.5-15.5) % Plt Count (150-450) k/uL MPV Neutrophils % % Lymphocytes % % Monocytes % % Eosinophils % % Basophils % % Neutrophils # (1.3-7.7) k/uL Lymphocytes # (1.0-4.8) k/uL Monocytes # (0-1.0) k/uL Eosinophils # (0-0.7) k/uL Basophils # (0-0.2) k/uL Hypochromasia Poikilocytosis Anisocytosis Microcytosis PT (9.0-12.0) sec INR (<1.2) APTT (22.0-30.0) sec Sodium (137-145) mmol/L Potassium (3.5-5.1) mmol/L Chloride (98-107) mmol/L Carbon Dioxide (22-30) mmol/L Anion Gap mmol/L BUN (7-17) mg/dL Creatinine (0.52-1.04) mg/dL Est GFR (CKD-EPI)AfAm (>60 ml/min/1.73 sqM) Est GFR (CKD-EPI)NonAf (>60 ml/min/1.73 sqM) Glucose (74-99) mg/dL Plasma Lactic Acid [place] (0.7-2.0) mmol/L Calcium (8.4-10.2) mg/dL Magnesium (1.6-2.3) mg/dL Total Bilirubin (0.2-1.3) mg/dL AST (14-36) U/L ALT (4-34) U/L Alkaline Phosphatase (38-126) U/L Troponin I (0.000-0.034) ng/mL NT-Pro-B Natriuret Pep pg/mL Total Protein (6.3-8.2) g/dL Albumin (3.5-5.0) g/dL Urine Color Yellow Urine Appearance Clear (Clear) Urine pH 5.5 (5.0-8.0) Ur Specific [place] 1.011 (1.001-1.035) Urine Protein Negative (Negative) Urine Glucose (UA) Negative (Negative) Urine Ketones Negative (Negative) Urine Blood Negative (Negative) Urine Nitrite Negative (Negative) Urine Bilirubin Negative (Negative) Urine Urobilinogen <2.0 (<2.0) mg/dL Ur Leukocyte Esterase Negative (Negative) Coronavirus (PCR) Not Detected (Not Detectd) Disposition Clinical Impression: Anemia, Hyponatremia Disposition: ADMITTED IP TO THIS HOSP Condition: Fair Is patient prescribed a controlled substance at d/c from ED?: No Referrals: Shea Amezcua MD [Primary Care Provider] - 1-2 days
[2020-11-02] MEDS ORDERED: ALBUTEROL NEBULIZED 2.5 MG/3 ML INHALATION PRN (14:21)
[2020-11-02] MEDS ORDERED: HYDROcodone/APAP 5-325MG 1 EACH TAB PO SCH (16:00)
[2020-11-02] MEDS: PANTOPRAZOLE 40 MG/10 ML VIAL IVP SCH ×2 (16:57→20:54)
--- NOTE | 2020-11-02 16:57 | P.HPIM ---
History of Present Illness This is a pleasant 80 years old female with past medical history of atrial fibrillation on Eliquis, asthma, diabetes mellitus, fibromyalgia, hypertension, hyperlipidemia, pulmonary embolism, recently discharged from hospital on 08/14/20 for decompensated liver cirrhosis secondary to Alfonso with ascites and diarrhea. Also history with esophageal varices status post banding, diabetic neuropathy, chronic low back pain with right radiculopathy secondary to spinal stenosis, bilateral leg edema overactive bladder, hypothyroidism, vertigo. Patient was going to do paracentesis for her routine INR visit, when they checked her labs they noticed she has low hemoglobin and low sodium and she was sent to emergency room per Dr. perry recommendation patient has self did not notice any bleeding, she has some dark stool but no true evidence of black. No abdominal pain. No nausea vomiting or hematemesis. However over the last 2 weeks she was feeling more weak than usual or also she's been complaining of from Her Legs and Feet for the Last Month on and off. No Chest Pain or Dyspnea. No Fever. No Urinary Complaints. No Dyspnea. Her stool is a slightly loose but no overt diarrhea She denies smoking, alcohol or illicit drugs Patient is slightly tachycardic and heart rate is 104-112. Blood pressure on the low normal site 102/60 Hemoglobin dropped from 8.3 last month down to 5.9 today. WBCs 3.5K, platelet count is normal. INR is 1.3. Sodium is 122 and 124 upon admission Creatinine is 1.0. Liver enzymes and bilirubin not elevated. Troponin is negative less than 0.012. Pro BNP is 1010. Urine analysis is no suspicious of infection. Wiley virus not detected Chest x-ray: No acute process Patient also with successful paracentesis where 5.9 L of straw colored fluid was removed Review of Systems CONSTITUTIONAL: No fever, no malaise, no fatigue. HEENT: No recent visual problems or hearing problems. Denied any sore throat. CARDIOVASCULAR: No orthopnea, PND, no palpitations, no syncope. PULMONARY: No shortness of breath, no cough, no hemoptysis. GASTROINTESTINAL: No diarrhea, no nausea, no vomiting, no abdominal pain. Normoactive bowel sounds. NEUROLOGICAL: No headaches, no weakness, no numbness. HEMATOLOGICAL: Denies any bleeding or petechiae. GENITOURINARY: Denies any burning micturition, frequency, or urgency. MUSCULOSKELETAL/RHEUMATOLOGICAL: Denies any joint pain, swelling, or any muscle pain. ENDOCRINE: Denies any polyuria or polydipsia. Past Medical History Past Medical History: Atrial Fibrillation, Asthma, Cancer, Diabetes Mellitus, Fibromyalgia, GERD/Reflux, Hyperlipidemia, Hypertension, Liver Disease, Osteoarthritis (OA), Pulmonary Embolus (PE), Thyroid Disorder Additional Past Medical History / Comment(s): Pt recently admitted to [facility] on 08/14/20 with decompensated liver cirrhosis 2ndary to ALFONSO with ascities/acute diarrhea and anemia with transfusion. Other hx: Nonalcoholic fatty liver, liver cirrhosis, ascities with multiple paracentesis and has albumin infusions, esophageal varicies with banding, NIDDM type II, neuropathy bilateral legs/feet, spinal stenosis/low back pain with R side radiculopathy and lately has had pain down L leg, recent bilateral lower leg edema, PE after leg fracture, overactive bladder, hypothyroid, sinus problems, vertigo, bilateral macular degeneration History of Any Multi-Drug Resistant Organisms: None Reported Past Surgical History: Adenoidectomy, Appendectomy, Back Surgery, Breast Surge ry, Hysterectomy, Joint Replacement, Orthopedic Surgery, Tonsillectomy Additional Past Surgical History / Comment(s): Multiple paracentesis, lower back and cervical fusions, bilateral total knees, bilateral total shoulders, bilateral carpal tunnel releases, bilateral hand trigger finger releases, R foot bone spur removed, R leg fracture/hardware removed, R breast fatty tumor removed, EGD with esophageal varicies banded, colonoscopy, skin cancer removed, bilateral cataracts removed. Past Anesthesia/Blood Transfusion Reactions: Motion Sickness, Postoperative Nausea & Vomiting (PONV) Additional Past Anesthesia/Blood Transfusion Reaction / Comment(s): Patient received blood in 1959. Past Psychological History: No Psychological Hx Reported Smoking Status: Former smoker Past Alcohol Use History: None Reported Past Drug Use History: None Reported - Past Family History Mother History Unknown: Yes Family Medical History: No Reported History Additional Family Medical History / Comment(s): Mother was healthy and lived to be 87yrs old. Father History Unknown: Yes Additional Family Medical History / Comment(s): Father in a MVA Medications and Allergies Home Medications Medication Instructions Recorded Confirmed Type Levothyroxine Sodium [Synthroid] 25 mcg PO DAILY@0700 03/23/14 11/02/20 History Montelukast [Singulair] 10 mg PO HS@2200 03/23/14 11/02/20 History Oxybutynin Chloride [Ditropan XL] 10 mg PO DAILY@1000 03/23/14 11/02/20 History HYDROcodone/APAP 5-325MG [Clifton 1 tab PO QID@07,10,12,16 06/13/15 11/02/20 History 5-325] Evolocumab [Repatha Sureclick] 140 mg SQ Q14D 03/14/20 11/02/20 History EPINEPHrine (Auto Inject) [Epipen] 0.3 mg IM ONCE PRN 04/13/20 11/02/20 History Omeprazole 40 mg PO DAILY 06/20/20 11/02/20 History Apixaban [Eliquis] 5 mg PO BID@1000,2200 #0 08/20/20 11/02/20 Rx Albuterol Inhaler [Ventolin Hfa 1 puff INHALATION RT-Q4H PRN 08/31/20 11/02/20 History Inhaler] Cholecalciferol [Vitamin D3 (25 25 mcg PO DAILY@1000 08/31/20 11/02/20 History Mcg = 1000 Iu)] Lutein 10 mg PO DAILY 08/31/20 11/02/20 History Acetaminophen Tab [Tylenol] 650 mg PO Q6HR PRN tab 09/03/20 11/02/20 Rx Folic Acid 1 mg PO DAILY@1200 30 Days #30 tab 09/03/20 11/02/20 Rx Thiamine [Vitamin B-1] 100 mg PO DAILY@1200 30 Days #30 09/03/20 11/02/20 Rx tab Midodrine [ProAmatine] 2.5 mg PO AC-TID 09/10/20 11/02/20 History Furosemide [Lasix] 40 mg PO BID 10/04/20 11/02/20 History Escitalopram [Lexapro] 5 mg PO DAILY 10/12/20 11/02/20 History Allergies Allergy/AdvReac Type Severity Reaction Status Date / Time venom-wasp [Wasp Venom] Allergy Severe Swelling Verified 11/02/20 15:51 adhesive Allergy Unknown Rash/Hives Verified 11/02/20 15:51 amoxicillin [Amoxicillin] Allergy Unknown Rash/Hives, Verified 11/02/20 15:51 itching fenofibrate nanocrystallized Allergy Unknown Rash/Hives,joint Verified 11/02/20 15:51 [From Tricor] pain fenofibrate,micronized Allergy Unknown Rash/Hives, Verified 11/02/20 15:51 [From Tricor] joint pain hydrochlorothiazide Allergy Unknown Rash/Hives Verified 11/02/20 15:51 Neuromuscular Blockers, Allergy Unknown Rash/Hives Verified 11/02/20 15:51 Steroidal [Steroidal Neuromuscular Blockers] Penicillins Allergy Unknown Rash/Hives, Verified 11/02/20 15:51 red skin shellfish derived Allergy Unknown SKIN RED Verified 11/02/20 15:51 AND WARM simvastatin [From Zocor] Allergy Unknown Rash/Hives, Verified 11/02/20 15:51 joint pain Csgsbfg-Pop-Cow Reductase Allergy Unknown Rash/Hives, Verified 11/02/20 15:51 Inhibitor joint pain venom-honey bee Allergy Unknown Swelling Verified 11/02/20 15:51 [bee venom (honey bee)] cat dander Allergy Rash/Hives Verified 11/02/20 15:51 ciprofloxacin HCl Allergy Unknown Verified 11/02/20 15:51 [From Cipro] sulfamethoxazole Allergy Rash/Hives Verified 11/02/20 15:51 talc Allergy Rash/Hives Verified 11/02/20 15:51 walnut Allergy Rash/Hives Verified 11/02/20 15:51 clarithromycin AdvReac warm and Verified 11/02/20 15:51 flushed minocycline AdvReac warm and Verified 11/02/20 15:51 flushed prednisone AdvReac Nausea Verified 11/02/20 15:51 soy AdvReac Nausea & Verified 11/02/20 15:51 Vomiting Physical Exam Vitals: Vital Signs Temp Pulse Pulse Resp BP BP Pulse Ox 11/02/20 12:23 18 11/02/20 11:17 97.7 F 89 20 102/60 100 11/02/20 11:05 104 H 18 111/59 100 11/02/20 10:28 112 H 18 114/56 100 11/02/20 09:07 98.1 F 78 18 112/57 100 Intake and Output 11/02/20 11/02/20 11/02/20 06:59 14:59 22:59 Other: Weight 68.492 kg GENERAL: The patient is alert and oriented x3, not in any acute distress. Well developed, well nourished. HEENT: Pupils are round and equally reacting to light. EOMI. No scleral icterus. No conjunctival pallor. Normocephalic, atraumatic. No pharyngeal erythema. No thyromegaly. CARDIOVASCULAR: S1 and S2 present. No murmurs, rubs, or gallops. PULMONARY: Chest is clear to auscultation, no wheezing or crackles. -ABDOMEN: Soft, nontender,mild abdominal distention, normoactive bowel sounds. No palpable organomegaly. MUSCULOSKELETAL: No joint swelling or deformity. -EXTREMITIES: No cyanosis, clubbing,. 3+ bilateral pitting leg edema. NEUROLOGICAL: Gross neurological examination did not reveal any focal deficits. SKIN: No rashes. No petechiae Results CBC & Chem 7: 11/02/20 12:39 11/02/20 12:39 Labs: Abnormal Lab Results - Last 24 Hours (Table) 11/02/20 11/02/20 11/02/20 Range/Units 08:53 08:54 08:54 WBC (3.8-10.6) k/uL RBC 3.06 L (3.80-5.40) m/uL Hgb 6.5 L* D (11.4-16.0) gm/dL Hct 22.4 L (34.0-46.0) % MCV 73.2 L D (80.0-100.0) fL MCH 21.1 L (25.0-35.0) pg MCHC 28.8 L (31.0-37.0) g/dL RDW 17.7 H (11.5-15.5) % Lymphocytes # 0.4 L (1.0-4.8) k/uL PT 12.3 H (9.0-12.0) sec INR 1.2 H (<1.2) Sodium 122 L (137-145) mmol/L Chloride 93 L (98-107) mmol/L Carbon Dioxide 21 L (22-30) mmol/L BUN 34 H (7-17) mg/dL Creatinine 1.14 H (0.52-1.04) mg/dL Glucose 140 H (74-99) mg/dL Calcium 8.1 L (8.4-10.2) mg/dL Total Protein 4.6 L (6.3-8.2) g/dL Albumin 2.7 L (3.5-5.0) g/dL 11/02/20 11/02/20 11/02/20 Range/Units 12:39 12:39 12:39 WBC 3.5 L (3.8-10.6) k/uL RBC 2.69 L (3.80-5.40) m/uL Hgb 5.9 L* (11.4-16.0) gm/dL Hct 19.2 L* (34.0-46.0) % MCV 71.3 L (80.0-100.0) fL MCH 21.9 L (25.0-35.0) pg MCHC 30.7 L (31.0-37.0) g/dL RDW 18.2 H (11.5-15.5) % Lymphocytes # 0.3 L (1.0-4.8) k/uL PT 13.0 H (9.0-12.0) sec INR 1.3 H (<1.2) Sodium 124 L (137-145) mmol/L Chloride 94 L (98-107) mmol/L Carbon Dioxide 21 L (22-30) mmol/L BUN 34 H (7-17) mg/dL Creatinine 1.09 H (0.52-1.04) mg/dL Glucose (74-99) mg/dL Calcium 8.2 L (8.4-10.2) mg/dL Total Protein 4.7 L (6.3-8.2) g/dL Albumin 2.8 L (3.5-5.0) g/dL Assessment and Plan Assessment: Acute GI bleed Acute blood loss anemia Hyponatremia, hypervolemic Atrial fibrillation, on Eliquis decompensated liver cirrhosis secondary to Alfonso with ascites , status post paracentesis 11/02 Type 2 diabetes mellitus Hypertension Hyperlipidemia History of pulmonary embolism after fracture history with esophageal varices status post banding Diabetic neuropathy chronic low back pain with right radiculopathy secondary to spinal stenosis Bilateral leg edema Hypothyroidism History of vertigo History of overactive bladder Plan: This is a pleasant 80 years old female who presents with GI bleed. Continue holding Eliquis till cleared by GI team. Continue with Protonix twice a day. Transfuse blood to keep hemoglobin more than 7. GI team consult Fluid restriction and monitor sodium Labs and medication were reviewed.. Continue same treatment. Continue with symptomatic treatment. Resume home medication. Monitor lytes and vitals. DVT and GI prophylaxis. Further recommendations depends on the clinical course of the patient DVT prophylaxis: No anticoagulation in view of GI bleed GI Prophylaxis: ppi PT/OT: Pending Prognosis is guarded
[2020-11-02] MEDS: MIDODRINE 5 MG TAB PO SCH (17:05)
[2020-11-02] MEDS: FUROSEMIDE 20 MG TAB PO SCH (20:54)
[2020-11-02] MEDS: MONTELUKAST 10 MG TAB PO SCH (20:54)
[2020-11-02] MEDS: APIXABAN 5 MG TAB PO SCH (20:54)
[2020-11-03] MEDS ORDERED: PANTOPRAZOLE 40 MG TABLET PO SCH (07:30)
[2020-11-03 07:49] LABS: ALT 11 U/L (4-34); AST 27 U/L (14-36); African American GFR (CKD) 66 (>60 ml/min/1.73 sqM); Albumin 2.7 g/dL (3.5-5.0); Albumin/Globulin Ratio 1.4; Alkaline Phosphatase 98 U/L (38-126); Anion Gap 7 mmol/L; Blood Urea Nitrogen 30 mg/dL (7-17); Calcium 8.2 mg/dL (8.4-10.2); Carbon Dioxide 24 mmol/L (22-30); Chloride 94 mmol/L (98-107); Glucose 103 mg/dL (74-99); Magnesium 2.2 mg/dL (1.6-2.3); Non-African American GFR(CKD) 58 (>60 ml/min/1.73 sqM); Potassium 3.8 mmol/L (3.5-5.1); Sodium 125 mmol/L (137-145); Total Protein 4.7 g/dL (6.3-8.2)
[2020-11-03 07:55] LABS: Anisocytosis Slight; Basophils % (A) 0 %; Eosinophils # (A) 0.1 k/uL (0-0.7); Eosinophils % (A) 1 %; HCT 27.2 % (34.0-46.0); Hypochromasia Marked; Lymphocytes # (A) 0.5 k/uL (1.0-4.8); Lymphocytes % (A) 14 %; MCH 22.7 pg (25.0-35.0); MCHC 30.3 g/dL (31.0-37.0); MCV 74.9 fL (80.0-100.0); Mean Platelet Volume 7.1; Microcytosis Moderate; Monocytes # (A) 0.3 k/uL (0-1.0); Monocytes % (A) 8 %; Neutrophils # (A) 2.4 k/uL (1.3-7.7); Neutrophils % (A) 73 %; Platelet Count 239 k/uL (150-450); Poikilocytosis Moderate; RBC 3.63 m/uL (3.80-5.40); WBC 3.3 k/uL (3.8-10.6)
[2020-11-03 07:58] LABS: HGB 8.2 gm/dL (11.4-16.0)
[2020-11-03] MEDS ORDERED: NON FORMULARY DRUG (Lutein [Lutein] 10 MG Tablet) PO SCH (09:00)
[2020-11-03] MEDS: HYDROcodone/APAP 5-325MG 1 EACH TAB PO SCH ×4 (09:29→20:52)
[2020-11-03] MEDS: MIDODRINE 5 MG TAB PO SCH ×3 (09:29→18:00)
[2020-11-03] MEDS: THIAMINE 100 MG TAB PO SCH (09:31)
[2020-11-03] MEDS: APIXABAN 5 MG TAB PO SCH ×2 (09:31→11:31)
[2020-11-03] MEDS: FUROSEMIDE 20 MG TAB PO SCH ×2 (09:31→20:51)
[2020-11-03] MEDS: CHOLECALCIFEROL 25 MCG (1000 IU) TABLET PO SCH (09:31)
[2020-11-03] MEDS: PANTOPRAZOLE 40 MG/10 ML VIAL IVP SCH ×2 (09:31→20:52)
[2020-11-03] MEDS: FOLIC ACID 1 MG TAB PO SCH (09:31)
[2020-11-03] MEDS: OXYBUTYNIN 10 MG TAB.ER.24 PO SCH (10:09)
[2020-11-03] MEDS: LEVOTHYROXINE 25 MCG TAB PO SCH (10:09)
[2020-11-03 12:27] LABS: Glucose,Whole Blood 109 mg/dL (75-99)
[2020-11-03] MEDS: ESCITALOPRAM 5 MG TAB PO SCH (12:50)
--- NOTE | 2020-11-03 15:19 | P.PN ---
Subjective This is a pleasant 80 years old female with past medical history of atrial fibrillation on Eliquis, asthma, diabetes mellitus, fibromyalgia, hypertension, hyperlipidemia, pulmonary embolism, recently discharged from hospital on 08/14/20 for decompensated liver cirrhosis secondary to Stuart with ascites and diarrhea. Also history with esophageal varices status post banding, diabetic neuropathy, chronic low back pain with right radiculopathy secondary to spinal stenosis, bilateral leg edema overactive bladder, hypothyroidism, vertigo. Patient was going to do paracentesis for her routine INR visit, when they checked her labs they noticed she has low hemoglobin and low sodium and she was sent to emergency room per Dr. perry recommendation patient has self did not notice any bleeding, she has some dark stool but no true evidence of black. No abdominal pain. No nausea vomiting or hematemesis. However over the last 2 weeks she was feeling more weak than usual or also she's been complaining of from Her Legs and Feet for the Last Month on and off. No Chest Pain or Dyspnea. No Fever. No Urinary Complaints. No Dyspnea. Her stool is a slightly loose but no overt diarrhea She denies smoking, alcohol or illicit drugs Patient is slightly tachycardic and heart rate is 104-112. Blood pressure on the low normal site 102/60 Hemoglobin dropped from 8.3 last month down to 5.9 today. WBCs 3.5K, platelet count is normal. INR is 1.3. Sodium is 122 and 124 upon admission Creatinine is 1.0. Liver enzymes and bilirubin not elevated. Troponin is negative less than 0.012. Pro BNP is 1010. Urine analysis is no suspicious of infection. Wiley virus not detected Chest x-ray: No acute process Patient also with successful paracentesis where 5.9 L of straw colored fluid was removed 11/03/2020 Patient presents with a symptomatic low hemoglobin is status post 1 unit of blood transfusion yesterday and her hemoglobin went up 5.9 up to 8.2. Patient today looks more comfortable, her pallor is improved. She denies any specific complaint however she noticed some worsening of her chronic low back and neck pain for many years with no weakness or numbness. Hemodynamically she is a stable and blood pressure remains on low normal site at 107/61. Labs also showing improvement sodium 124 up to 125. She remains on Protonix 40 mg twice daily and Lasix 20 mg orally twice daily. Patient is placed on a fluid restriction and she was counseled and she agrees. Her Eliquis at 5 mg twice daily was held approximately this morning for concerns of GI bleed. GI team were consulted. We'll keep monitoring her hemoglobin and sodium levels Objective - Vital Signs Vital signs: Vital Signs Temp 97.5 F L 11/03/20 12:30 Pulse 71 11/03/20 12:30 Resp 16 11/03/20 12:30 BP 107/61 11/03/20 12:30 Pulse Ox 99 11/03/20 12:30 Intake & Output 11/02/20 11/03/20 11/03/20 18:59 06:59 18:59 Intake Total 0 530 Output Total 300 Balance 0 230 Weight 68.492 kg Intake: Oral 220 Blood Product 0 310 Rc As-1 Unit 0 310 [id number] Output: Urine 300 Other: Voiding Method Toilet Toilet Bedside Commode Bedside Commode # Voids 3 # Bowel Movements 1 - Exam GENERAL: The patient is alert and oriented x3, not in any acute distress. Well developed, well nourished. HEENT: Pupils are round and equally reacting to light. EOMI. No scleral icterus. No conjunctival pallor. Normocephalic, atraumatic. No pharyngeal erythema. No thyromegaly. CARDIOVASCULAR: S1 and S2 present. No murmurs, rubs, or gallops. PULMONARY: Chest is clear to auscultation, no wheezing or crackles. -ABDOMEN: Soft, nontender,mild abdominal distention, normoactive bowel sounds. No palpable organomegaly. MUSCULOSKELETAL: No joint swelling or deformity. -EXTREMITIES: No cyanosis, clubbing,. 3+ bilateral pitting leg edema. NEUROLOGICAL: Gross neurological examination did not reveal any focal deficits. SKIN: No rashes. No petechiae - Labs CBC & Chem 7: 11/03/20 06:27 11/03/20 06:27 Labs: Abnormal Lab Results - Last 24 Hours (Table) 11/02/20 11/03/20 11/03/20 Range/Units 14:40 06:27 06:27 WBC 3.3 L (3.8-10.6) k/uL RBC 3.63 L (3.80-5.40) m/uL Hgb 8.2 L D (11.4-16.0) gm/dL Hct 27.2 L (34.0-46.0) % MCV 74.9 L (80.0-100.0) fL MCH 22.7 L (25.0-35.0) pg MCHC 30.3 L (31.0-37.0) g/dL RDW 18.0 H (11.5-15.5) % Lymphocytes # 0.5 L (1.0-4.8) k/uL Sodium 125 L (137-145) mmol/L Chloride 94 L (98-107) mmol/L BUN 30 H (7-17) mg/dL Glucose 103 H (74-99) mg/dL POC Glucose (mg/dL) (75-99) mg/dL Calcium 8.2 L (8.4-10.2) mg/dL Total Protein 4.7 L (6.3-8.2) g/dL Albumin 2.7 L (3.5-5.0) g/dL Crossmatch See Detail 11/03/20 Range/Units 12:25 WBC (3.8-10.6) k/uL RBC (3.80-5.40) m/uL Hgb (11.4-16.0) gm/dL Hct (34.0-46.0) % MCV (80.0-100.0) fL MCH (25.0-35.0) pg MCHC (31.0-37.0) g/dL RDW (11.5-15.5) % Lymphocytes # (1.0-4.8) k/uL Sodium (137-145) mmol/L Chloride (98-107) mmol/L BUN (7-17) mg/dL Glucose (74-99) mg/dL POC Glucose (mg/dL) 109 H (75-99) mg/dL Calcium (8.4-10.2) mg/dL Total Protein (6.3-8.2) g/dL Albumin (3.5-5.0) g/dL Crossmatch Assessment and Plan Assessment: Acute GI bleed Acute blood loss anemia Hyponatremia, hypervolemic Atrial fibrillation, on Eliquis decompensated liver cirrhosis secondary to Stuart with ascites , status post paracentesis 11/02 Type 2 diabetes mellitus Hypertension Hyperlipidemia History of pulmonary embolism after fracture history with esophageal varices status post banding Diabetic neuropathy chronic low back pain with right radiculopathy secondary to spinal stenosis Bilateral leg edema Hypothyroidism History of vertigo History of overactive bladder Plan: This is a pleasant 80 years old female who presents with GI bleed. Continue holding Eliquis till cleared by GI team. Continue with Protonix twice a day. Transfuse blood to keep hemoglobin more than 7. GI team consult Fluid restriction and monitor sodium Labs and medication were reviewed.. Continue same treatment. Continue with symptomatic treatment. Resume home medication. Monitor lytes and vitals. DVT and GI prophylaxis. Further recommendations depends on the clinical course of the patient DVT prophylaxis: No anticoagulation in view of GI bleed GI Prophylaxis: ppi PT/OT: Pending Prognosis is guarded
[2020-11-03 17:09] LABS: Glucose,Whole Blood 133 mg/dL (75-99)
[2020-11-03] MEDS: INSULIN ASPART (NovoLOG) 100 UNIT/ML VIAL SQ SCH ×2 (17:43→20:52)
[2020-11-03 20:43] LABS: Glucose,Whole Blood 168 mg/dL (75-99)
[2020-11-03] MEDS: MONTELUKAST 10 MG TAB PO SCH (20:51)
[2020-11-04 07:44] LABS: Glucose,Whole Blood 123 mg/dL (75-99)
[2020-11-04] MEDS: HYDROcodone/APAP 5-325MG 1 EACH TAB PO SCH ×4 (08:02→21:40)
[2020-11-04] MEDS: MIDODRINE 5 MG TAB PO SCH ×3 (08:04→18:24)
[2020-11-04] MEDS: LEVOTHYROXINE 25 MCG TAB PO SCH (08:04)
[2020-11-04] MEDS: ESCITALOPRAM 5 MG TAB PO SCH (08:05)
[2020-11-04] MEDS: FUROSEMIDE 20 MG TAB PO SCH ×2 (08:05→21:41)
[2020-11-04] MEDS: PANTOPRAZOLE 40 MG/10 ML VIAL IVP SCH ×2 (08:06→21:41)
[2020-11-04] MEDS: CHOLECALCIFEROL 25 MCG (1000 IU) TABLET PO SCH (08:06)
[2020-11-04] MEDS: OXYBUTYNIN 10 MG TAB.ER.24 PO SCH (08:06)
[2020-11-04] MEDS: FOLIC ACID 1 MG TAB PO SCH (08:06)
[2020-11-04] MEDS: THIAMINE 100 MG TAB PO SCH (08:06)
[2020-11-04] MEDS: INSULIN ASPART (NovoLOG) 100 UNIT/ML VIAL SQ SCH ×4 (08:08→21:41)
[2020-11-04 08:46] LABS: Anisocytosis Slight; Basophils % (A) 0 %; Eosinophils # (A) 0.1 k/uL (0-0.7); Eosinophils % (A) 2 %; HCT 30.1 % (34.0-46.0); HGB 8.7 gm/dL (11.4-16.0); Hypochromasia Marked; Lymphocytes # (A) 0.4 k/uL (1.0-4.8); Lymphocytes % (A) 10 %; MCH 21.9 pg (25.0-35.0); MCHC 28.9 g/dL (31.0-37.0); Mean Platelet Volume 7.9; Microcytosis Slight; Monocytes # (A) 0.3 k/uL (0-1.0); Monocytes % (A) 8 %; Neutrophils # (A) 3.3 k/uL (1.3-7.7); Neutrophils % (A) 77 %; Platelet Count 292 k/uL (150-450); Poikilocytosis Moderate; RBC 3.96 m/uL (3.80-5.40); RDW 18.1 % (11.5-15.5); WBC 4.3 k/uL (3.8-10.6)
[2020-11-04 08:57] LABS: African American GFR (CKD) 63 (>60 ml/min/1.73 sqM); Anion Gap 6 mmol/L; Blood Urea Nitrogen 29 mg/dL (7-17); Calcium 8.4 mg/dL (8.4-10.2); Carbon Dioxide 23 mmol/L (22-30); Chloride 96 mmol/L (98-107); Glucose 113 mg/dL (74-99); Non-African American GFR(CKD) 55 (>60 ml/min/1.73 sqM); Potassium 3.9 mmol/L (3.5-5.1); Sodium 125 mmol/L (137-145)
--- NOTE | 2020-11-04 10:28 | P.CONS ---
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 Currently the patient receives weekly paracentesis. She had been describing weakness occurring over the past few months during the appointment and laboratory evaluation was performed and significant for hyponatremia and anemia with a hemoglobin of 5.9. The patient has a known history of decompensated liver cirrhosis. Currently she receives paracentesis weekly. She has also undergone EGD with banding on 2 occasions with banding of varices last performed on 08/07/2020 with findings of moderate antral gastritis and 2 bands placed over the varices. She denies any signs or symptoms of GI bleeding. No abdominal pain reported. Hemoglobin improved at 8.2 status post transfusion of PRBCs. The patient also has a known history of iron deficiency anemia and has received IV iron infusions with hematology service the last proximally 1 month ago. Currently she is seen sitting bedside with no acute complaints. His sodium was markedly depressed at 122 on presentation. Review of Systems REVIEW OF SYSTEMS: CONSTITUTIONAL: Denies any fevers, chills, weight change but the patient has been feeling fatigued. CARDIOVASCULAR: Denies any chest pain, palpitations high or low blood pressures RESPIRATORY: Denies any shortness of breath, hemoptysis or cough. GENITOURINARY: No dysuria or hematuria. MUSCULOSKELETAL: No weakness reported. SKIN: Denies any new rashes or lesions, jaundice or pallor. PSYCHIATRIC: Denies any depression or anxiety. NEUROLOGY: Denies headache, denies any new focal deficits. EARS/NOSE/THROAT: No recent hearing change, congestion, nasal discharge or sore throat. EYES: No pain in eyes, discharge or change in vision. GASTROINTESTINAL: As per HPI. Past Medical History Past Medical History: Atrial Fibrillation, Asthma, Cancer, Diabetes Mellitus, Fibromyalgia, GERD/Reflux, Hyperlipidemia, Hypertension, Liver Disease, Osteoarthritis (OA), Pulmonary Embolus (PE), Thyroid Disorder Additional Past Medical History / Comment(s): Pt recently admitted to [facility] on 08/14/20 with decompensated liver cirrhosis 2ndary to ALFONSO with ascities/acute diarrhea and anemia with transfusion. Other hx: Nonalcoholic fatty liver, liver cirrhosis, ascities with multiple paracentesis and has albumin infusions, esophageal varicies with banding, NIDDM type II, neuropathy bilateral legs/feet, spinal stenosis/low back pain with R side radiculopathy and lately has had pain down L leg, recent bilateral lower leg edema, PE after leg fracture, overactive bladder, hypothyroid, sinus problems, vertigo, bilateral macular degeneration History of Any Multi-Drug Resistant Organisms: None Reported Past Surgical History: Adenoidectomy, Appendectomy, Back Surgery, Breast Surgery, Hysterectomy, Joint Replacement, Orthopedic Surgery, Tonsillectomy Additional Past Surgical History / Comment(s): Multiple paracentesis, lower back and cervical fusions, bilateral total knees, bilateral total shoulders, bilateral carpal tunnel releases, bilateral hand trigger finger releases, R foot bone spur removed, R leg fracture/hardware removed, R breast fatty tumor removed, EGD with esophageal varicies banded, colonoscopy, skin cancer removed, bilateral cataracts removed. Past Anesthesia/Blood Transfusion Reactions: Motion Sickness, Postoperative Nausea & Vomiting (PONV) Additional Past Anesthesia/Blood Transfusion Reaction / Comm: Patient received blood in 1958. Past Psychological History: No Psychological Hx Reported Smoking Status: Former smoker Past Alcohol Use History: None Reported Past Drug Use History: None Reported - Past Family History Mother History Unknown: Yes Family Medical History: No Reported History Additional Family Medical History / Comment(s): Mother was healthy and lived to be 87yrs old. Father History Unknown: Yes Additional Family Medical History / Comment(s): Father in a MVA Medications and Allergies Home Medications Medication Instructions Recorded Confirmed Type Levothyroxine Sodium [Synthroid] 25 mcg PO DAILY@0700 03/23/14 11/02/20 History Montelukast [Singulair] 10 mg PO HS@2200 03/23/14 11/02/20 History Oxybutynin Chloride [Ditropan XL] 10 mg PO DAILY@1000 03/23/14 11/02/20 History HYDROcodone/APAP 5-325MG [[place] 1 tab PO QID@07,10,12,16 06/13/15 11/02/20 History 5-325] Evolocumab [Repatha Sureclick] 140 mg SQ Q14D 03/14/20 11/02/20 History EPINEPHrine (Auto Inject) [Epipen] 0.3 mg IM ONCE PRN 04/13/20 11/02/20 History Omeprazole 40 mg PO DAILY 06/20/20 11/02/20 History Apixaban [Eliquis] 5 mg PO BID@1000,2200 #0 08/20/20 11/02/20 Rx Albuterol Inhaler [Ventolin Hfa 1 puff INHALATION RT-Q4H PRN 08/31/20 11/02/20 History Inhaler] Cholecalciferol [Vitamin D3 (25 25 mcg PO DAILY@1000 08/31/20 11/02/20 History Mcg = 1000 Iu)] Lutein 10 mg PO DAILY 08/31/20 11/02/20 History Acetaminophen Tab [Tylenol] 650 mg PO Q6HR PRN tab 09/03/20 11/02/20 Rx Folic Acid 1 mg PO DAILY@1200 30 Days #30 tab 09/03/20 11/02/20 Rx Thiamine [Vitamin B-1] 100 mg PO DAILY@1200 30 Days #30 09/03/20 11/02/20 Rx tab Midodrine [ProAmatine] 2.5 mg PO AC-TID 09/10/20 11/02/20 History Furosemide [Lasix] 40 mg PO BID 10/04/20 11/02/20 History Escitalopram [Lexapro] 5 mg PO DAILY 10/12/20 11/02/20 History Allergies Allergy/AdvReac Type Severity Reaction Status Date / Time venom-wasp [Wasp Venom] Allergy Severe Swelling Verified 11/02/20 15:51 adhesive Allergy Unknown Rash/Hives Verified 11/02/20 15:51 amoxicillin [Amoxicillin] Allergy Unknown Rash/Hives, Verified 11/02/20 15:51 itching fenofibrate nanocrystallized Allergy Unknown Rash/Hives,joint Verified 11/02/20 15:51 [From Tricor] pain fenofibrate,micronized Allergy Unknown Rash/Hives, Verified 11/02/20 15:51 [From Tricor] joint pain hydrochlorothiazide Allergy Unknown Rash/Hives Verified 11/02/20 15:51 Neuromuscular Blockers, Allergy Unknown Rash/Hives Verified 11/02/20 15:51 Steroidal [Steroidal Neuromuscular Blockers] Penicillins Allergy Unknown Rash/Hives, Verified 11/02/20 15:51 red skin shellfish derived Allergy Unknown SKIN RED Verified 11/02/20 15:51 AND WARM simvastatin [From Zocor] Allergy Unknown Rash/Hives, Verified 11/02/20 15:51 joint pain [id number]-Ylp-Xge Reductase Allergy Unknown Rash/Hives, Verified 11/02/20 15:51 Inhibitor joint pain venom-honey bee Allergy Unknown Swelling Verified 11/02/20 15:51 [bee venom (honey bee)] cat dander Allergy Rash/Hives Verified 11/02/20 15:51 ciprofloxacin HCl Allergy Unknown Verified 11/02/20 15:51 [From Cipro] sulfamethoxazole Allergy Rash/Hives Verified 11/02/20 15:51 talc Allergy Rash/Hives Verified 11/02/20 15:51 walnut Allergy Rash/Hives Verified 11/02/20 15:51 clarithromycin AdvReac warm and Verified 11/02/20 15:51 flushed minocycline AdvReac warm and Verified 11/02/20 15:51 flushed prednisone AdvReac Nausea Verified 11/02/20 15:51 soy AdvReac Nausea & Verified 11/02/20 15:51 Vomiting Physical Exam Vitals: Vital Signs Temp Pulse Pulse Resp BP BP Pulse Ox 11/03/20 05:30 97.9 F 70 20 118/77 97 11/02/20 22:50 97.8 F 69 20 97/56 100 11/02/20 20:57 98.4 F 86 16 109/67 11/02/20 18:34 97.8 F 81 16 101/48 100 11/02/20 18:04 97.9 F 76 16 115/93 100 11/02/20 18:00 97.8 F 81 16 101/48 100 11/02/20 17:54 97.6 F 82 16 99/44 100 11/02/20 17:00 70 18 118/53 100 11/02/20 16:00 18 11/02/20 15:00 18 11/02/20 14:00 90 18 90/68 95 11/02/20 13:00 18 11/02/20 12:23 18 Intake and Output 11/02/20 11/03/20 11/03/20 22:59 06:59 14:59 Intake Total 410 120 Output Total 300 Balance 410 -180 Intake: Oral 100 120 Blood Product 310 Rc As-1 Unit 310 [id number] Output: Urine 300 Other: Voiding Method Toilet Bedside Commode # Voids 3 # Bowel Movements 1 Weight 68.492 kg On physical examination, patient appears comfortable in no apparent distress. HEAD: Normocephalic, atraumatic. EYES: No scleral icterus. No conjunctival injection. MOUTH: No lesions, tongue midline. NECK: Trachea midline, no gross abnormalities. CHEST: Clear to auscultation with no wheezing or rhonchi appreciated. HEART: S1-S2 appreciated. ABDOMEN: Soft, moderately distended. Bowel sounds are positive. No organomegaly. No guarding or rigidity. EXTREMITIES: Bilateral +1 pedal edema. SKIN: No rashes, no jaundice. NEUROLOGIC: Alert and oriented x3. No focal deficits. Results CBC & Chem 7: 11/04/20 08:17 11/04/20 08:17 Labs: Abnormal Lab Results - Last 24 Hours (Table) 11/02/20 11/02/20 11/02/20 Range/Units 12:39 12:39 12:39 WBC 3.5 L (3.8-10.6) k/uL RBC 2.69 L (3.80-5.40) m/uL Hgb 5.9 L* (11.4-16.0) gm/dL Hct 19.2 L* (34.0-46.0) % MCV 71.3 L (80.0-100.0) fL MCH 21.9 L (25.0-35.0) pg MCHC 30.7 L (31.0-37.0) g/dL RDW 18.2 H (11.5-15.5) % Lymphocytes # 0.3 L (1.0-4.8) k/uL PT 13.0 H (9.0-12.0) sec INR 1.3 H (<1.2) Sodium 124 L (137-145) mmol/L Chloride 94 L (98-107) mmol/L Carbon Dioxide 21 L (22-30) mmol/L BUN 34 H (7-17) mg/dL Creatinine 1.09 H (0.52-1.04) mg/dL Glucose (74-99) mg/dL Calcium 8.2 L (8.4-10.2) mg/dL Total Protein 4.7 L (6.3-8.2) g/dL Albumin 2.8 L (3.5-5.0) g/dL Crossmatch 11/02/20 11/03/20 11/03/20 Range/Units 14:40 06:27 06:27 WBC 3.3 L (3.8-10.6) k/uL RBC 3.63 L (3.80-5.40) m/uL Hgb 8.2 L D (11.4-16.0) gm/dL Hct 27.2 L (34.0-46.0) % MCV 74.9 L (80.0-100.0) fL MCH 22.7 L (25.0-35.0) pg MCHC 30.3 L (31.0-37.0) g/dL RDW 18.0 H (11.5-15.5) % Lymphocytes # 0.5 L (1.0-4.8) k/uL PT (9.0-12.0) sec INR (<1.2) Sodium 125 L (137-145) mmol/L Chloride 94 L (98-107) mmol/L Carbon Dioxide (22-30) mmol/L BUN 30 H (7-17) mg/dL Creatinine (0.52-1.04) mg/dL Glucose 103 H (74-99) mg/dL Calcium 8.2 L (8.4-10.2) mg/dL Total Protein 4.7 L (6.3-8.2) g/dL Albumin 2.7 L (3.5-5.0) g/dL Crossmatch See Detail Chest x-ray: report reviewed (No acute process on chest x-ray) Assessment and Plan (1) Anemia Narrative/Plan: 80-year-old female with multiple medical comorbidities including decompensated liver cirrhosis with ascites and varices last EGD with banding on 08/07/20 as well as ascites requiring weekly large volume paracentesis. She presented for evaluation of weakness after having multiple lab abnormalities noted during paracentesis. Patient was anemic with a hemoglobin of 5.9 currently 8.2 status post transfusion of PRBCs. She denies any signs or symptoms of GI bleeding. She has had endoscopic evaluation with last EGD in July with no evidence of bleeding at that time. She reports following with the hematology service and receiving IV iron transfusions with the last approximately one month ago. No hematemesis, coffee-ground emesis, hematochezia or melena reported. No abdominal pain except for distention secondary to her ascites. Anemia likely multifactorial secondary to chronic disease, portal hypertension with splenomegaly and underlying cirrhosis. Current Visit: Yes Status: Acute Code(s): D64.9 - ANEMIA, UNSPECIFIED SNOMED Code(s): 622449357 (2) Hyponatremia Current Visit: Yes Status: Acute Code(s): E87.1 - HYPO-OSMOLALITY AND HY PONATREMIA SNOMED Code(s): 37959300 (3) Abdominal distention Current Visit: No Status: Acute Code(s): R14.0 - ABDOMINAL DISTENSION (GASEOUS) SNOMED Code(s): 82175190 (4) Ascites Current Visit: No Status: Acute Code(s): R18.8 - OTHER ASCITES SNOMED Code(s): 212323851 (5) Liver cirrhosis secondary to ALFONSO (nonalcoholic steatohepatitis) Current Visit: No Status: Acute Code(s): K75.81 - NONALCOHOLIC STEATOHEPATITIS (ALFONSO); K74.60 - UNSPECIFIED CIRRHOSIS OF LIVER SNOMED Code(s): 035577553 Plan: Supportive care Okay for diet as tolerated Continue midrodrine Continue Protonix twice a day Continue to monitor CBC, BMP, LFTs Electrolyte correction as per primary team with patient severely hyponatremic on presentation likely contributing to fatigue Follow up with GI after discharge and continue weekly large volume paracentesis Thank you for allowing us to participate in the care of the patient
[2020-11-04 12:42] LABS: Glucose,Whole Blood 118 mg/dL (75-99)
--- NOTE | 2020-11-04 13:14 | P.PN ---
Subjective Progress Note Date: 11/04/20 Principal diagnosis: Decompensated cirrhosis, anemia, ascites Patient seen sitting bedside with no acute complaints. Tolerating diet. No abdominal pain. No signs or symptoms GI bleeding. Objective - Vital Signs Vital signs: Vital Signs Temp 98.1 F 11/04/20 05:00 Pulse 74 11/04/20 05:00 Resp 16 11/04/20 05:00 BP 108/60 11/04/20 05:00 Pulse Ox 98 11/04/20 05:00 Intake & Output 11/03/20 11/04/20 11/04/20 18:59 06:59 18:59 Intake Total 770 Balance 770 Intake: Oral 770 Other: Voiding Method Toilet Toilet Bedside Commode Bedside Commode # Voids 2 - Exam On physical examination, patient appears comfortable in no apparent distress. HEAD: Normocephalic, atraumatic. EYES: No scleral icterus. No conjunctival injection. MOUTH: No lesions, tongue midline. NECK: Trachea midline, no gross abnormalities. ABDOMEN: Soft, mildly distended. Bowel sounds are positive. No organomegaly. No guarding or rigidity. EXTREMITIES: Bilateral pedal edema. SKIN: No rashes, no jaundice. NEUROLOGIC: Alert and oriented x3. No focal deficits. - Labs CBC & Chem 7: 11/04/20 08:17 11/04/20 08:17 Labs: Abnormal Lab Results - Last 24 Hours (Table) 11/03/20 11/03/20 11/03/20 Range/Units 12:25 17:03 20:41 Hgb (11.4-16.0) gm/dL Hct (34.0-46.0) % MCV (80.0-100.0) fL MCH (25.0-35.0) pg MCHC (31.0-37.0) g/dL RDW (11.5-15.5) % Lymphocytes # (1.0-4.8) k/uL Sodium (137-145) mmol/L Chloride (98-107) mmol/L BUN (7-17) mg/dL Glucose (74-99) mg/dL POC Glucose (mg/dL) 109 H 133 H 168 H (75-99) mg/dL 11/04/20 11/04/20 11/04/20 Range/Units 07:40 08:17 08:17 Hgb 8.7 L (11.4-16.0) gm/dL Hct 30.1 L (34.0-46.0) % MCV 76.0 L (80.0-100.0) fL MCH 21.9 L (25.0-35.0) pg MCHC 28.9 L (31.0-37.0) g/dL RDW 18.1 H (11.5-15.5) % Lymphocytes # 0.4 L (1.0-4.8) k/uL Sodium 125 L (137-145) mmol/L Chloride 96 L (98-107) mmol/L BUN 29 H (7-17) mg/dL Glucose 113 H (74-99) mg/dL POC Glucose (mg/dL) 123 H (75-99) mg/dL Assessment and Plan (1) Anemia Narrative/Plan: 80-year-old female with multiple medical comorbidities including decompensated liver cirrhosis with ascites and varices last EGD with banding on 08/07/20 as well as ascites requiring weekly large volume paracentesis. She presented for evaluation of weakness after having multiple lab abnormalities noted during paracentesis. Patient was anemic with a hemoglobin of 5.9 currently 8.2 status post transfusion of PRBCs. She denies any signs or symptoms of GI bleeding. She has had endoscopic evaluation with last EGD in July with no evidence of bleeding at that time. She reports following with the hematology service and receiving IV iron transfusions with the last approximately one month ago. No hematemesis, coffee-ground emesis, hematochezia or melena reported. No abdominal pain except for distention secondary to her ascites. Anemia likely multifactorial secondary to chronic disease, portal hypertension with splenomegaly and underlying cirrhosis. Hemoglobin stable at 8.7 today with no signs or symptoms of GI bleeding. Current Visit: Yes Status: Acute Code(s): D64.9 - ANEMIA, UNSPECIFIED SNOMED Code(s): 207855259 (2) Hyponatremia Current Visit: Yes Status: Acute Code(s): E87.1 - HYPO-OSMOLALITY AND HYPONATREMIA SNOMED Code(s): 67234005 (3) Abdominal distention Current Visit: No Status: Acute Code(s): R14.0 - ABDOMINAL DISTENSION (GASEOUS) SNOMED Code(s): 10174294 (4) Ascites Current Visit: No Status: Acute Code(s): R18.8 - OTHER ASCITES SNOMED Code(s): 037965961 (5) Liver cirrhosis secondary to ALFONSO (nonalcoholic steatohepatitis) Current Visit: No Status: Acute Code(s): K75.81 - NONALCOHOLIC STEATOHEPATITIS (ALFONSO); K74.60 - UNSPECIFIED CIRRHOSIS OF LIVER SNOMED Code(s): 525137071 Plan: Supportive care Okay for diet as tolerated Continue midrodrine Continue Protonix twice a day Continue to monitor CBC, BMP, LFTs Electrolyte correction as per primary team with patient severely hyponatremic on presentation likely contributing to fatigue Follow up with GI after discharge and continue weekly large volume paracentesis Thank you for allowing us to participate in the care of the patient
[2020-11-04] MEDS: APIXABAN 5 MG TAB PO SCH ×2 (16:01→17:40)
[2020-11-04 17:39] LABS: Glucose,Whole Blood 128 mg/dL (75-99)
--- NOTE | 2020-11-04 20:30 | P.PN ---
Subjective This is a pleasant 80 years old female with past medical history of atrial fibrillation on Eliquis, asthma, diabetes mellitus, fibromyalgia, hypertension, hyperlipidemia, pulmonary embolism, recently discharged from hospital on 08/14/20 for decompensated liver cirrhosis secondary to Stuart with ascites and diarrhea. Also history with esophageal varices status post banding, diabetic neuropathy, chronic low back pain with right radiculopathy secondary to spinal stenosis, bilateral leg edema overactive bladder, hypothyroidism, vertigo. Patient was going to do paracentesis for her routine INR visit, when they checked her labs they noticed she has low hemoglobin and low sodium and she was sent to emergency room per Dr. perry recommendation patient has self did not notice any bleeding, she has some dark stool but no true evidence of black. No abdominal pain. No nausea vomiting or hematemesis. However over the last 2 weeks she was feeling more weak than usual or also she's been complaining of from Her Legs and Feet for the Last Month on and off. No Chest Pain or Dyspnea. No Fever. No Urinary Complaints. No Dyspnea. Her stool is a slightly loose but no overt diarrhea She denies smoking, alcohol or illicit drugs Patient is slightly tachycardic and heart rate is 104-112. Blood pressure on the low normal site 102/60 Hemoglobin dropped from 8.3 last month down to 5.9 today. WBCs 3.5K, platelet count is normal. INR is 1.3. Sodium is 122 and 124 upon admission Creatinine is 1.0. Liver enzymes and bilirubin not elevated. Troponin is negative less than 0.012. Pro BNP is 1010. Urine analysis is no suspicious of infection. Wiley virus not detected Chest x-ray: No acute process Patient also with successful paracentesis where 5.9 L of straw colored fluid was removed 11/03/2020 Patient presents with a symptomatic low hemoglobin is status post 1 unit of blood transfusion yesterday and her hemoglobin went up 5.9 up to 8.2. Patient today looks more comfortable, her pallor is improved. She denies any specific complaint however she noticed some worsening of her chronic low back and neck pain for many years with no weakness or numbness. Hemodynamically she is a stable and blood pressure remains on low normal site at 107/61. Labs also showing improvement sodium 124 up to 125. She remains on Protonix 40 mg twice daily and Lasix 20 mg orally twice daily. Patient is placed on a fluid restriction and she was counseled and she agrees. Her Eliquis at 5 mg twice daily was held approximately this morning for concerns of GI bleed. GI team were consulted. We'll keep monitoring her hemoglobin and sodium levels 11/04/2020 Patient is with no abdominal pain, no nausea vomiting or diarrhea. No chest pain or dyspnea, no other symptoms actually patient felt good that she was insistent on leaving the hospital today however I explained to her she is not ready for discharge. It looks like her hemoglobin went up after 1 unit of blood transfusion and today is 8.7. Sodium remains stable at 125 for similar to yesterday. Patient fluid restriction lowered from 1200 down to 1800 per 24 hours and patient informed and agreed also discussed with the staff. GI team are following the patient closely and stated that she had EGD done last July with no evidence of bleeding. They suspect her anemia is multifactorial from chronic disease, portal hypertension with splenomegaly and underlying cirrhosis. Also they stated that patient follow up with risk control director and get IV iron. Iron study from 06/25/2020 showing evidence of iron deficiency anemia at that time B12 was 799 and folate and RBCs was high As per staff GI team said okay to start Eliquis. I informed the patient and she agrees. We'll keep monitoring her hemoglobin and sodium discussed with the staff Objective - Vital Signs Vital signs: Vital Signs Temp 98.0 F 11/04/20 12:39 Pulse 82 11/04/20 12:39 Resp 16 11/04/20 12:39 BP 109/63 11/04/20 12:39 Pulse Ox 99 11/04/20 12:39 Intake & Output 11/04/20 11/04/20 11/05/20 06:59 18:59 06:59 Intake Total 770 480 Output Total 300 Balance 770 180 Intake: Oral 770 480 Output: Urine 300 Other: Voiding Method Toilet Toilet Bedside Commode Bedside Commode # Voids 2 2 # Bowel Movements 1 - Exam GENERAL: The patient is alert and oriented x3, not in any acute distress. Well developed, well nourished. HEENT: Pupils are round and equally reacting to light. EOMI. No scleral icterus. No conjunctival pallor. Normocephalic, atraumatic. No pharyngeal erythema. No thyromegaly. CARDIOVASCULAR: S1 and S2 present. No murmurs, rubs, or gallops. PULMONARY: Chest is clear to auscultation, no wheezing or crackles. -ABDOMEN: Soft, nontender,mild abdominal distention, normoactive bowel sounds. No palpable organomegaly. MUSCULOSKELETAL: No joint swelling or deformity. -EXTREMITIES: No cyanosis, clubbing,. 3+ bilateral pitting leg edema. NEUROLOGICAL: Gross neurological examination did not reveal any focal deficits. SKIN: No rashes. No petechiae - Labs CBC & Chem 7: 11/04/20 08:17 11/04/20 08:17 Labs: Abnormal Lab Results - Last 24 Hours (Table) 11/03/20 11/04/20 11/04/20 Range/Units 20:41 07:40 08:17 Hgb 8.7 L (11.4-16.0) gm/dL Hct 30.1 L (34.0-46.0) % MCV 76.0 L (80.0-100.0) fL MCH 21.9 L (25.0-35.0) pg MCHC 28.9 L (31.0-37.0) g/dL RDW 18.1 H (11.5-15.5) % Lymphocytes # 0.4 L (1.0-4.8) k/uL Sodium (137-145) mmol/L Chloride (98-107) mmol/L BUN (7-17) mg/dL Glucose (74-99) mg/dL POC Glucose (mg/dL) 168 H 123 H (75-99) mg/dL 11/04/20 11/04/20 11/04/20 Range/Units 08:17 12:40 17:36 Hgb (11.4-16.0) gm/dL Hct (34.0-46.0) % MCV (80.0-100.0) fL MCH (25.0-35.0) pg MCHC (31.0-37.0) g/dL RDW (11.5-15.5) % Lymphocytes # (1.0-4.8) k/uL Sodium 125 L (137-145) mmol/L Chloride 96 L (98-107) mmol/L BUN 29 H (7-17) mg/dL Glucose 113 H (74-99) mg/dL POC Glucose (mg/dL) 118 H 128 H (75-99) mg/dL Assessment and Plan Assessment: Acute anemia, thought multifactorial due to her chronic disease, portal hypertension with splenomegaly and underlying cirrhosis, no evidence of GI bleed. GI team and okay to resume Eliquis Hyponatremia, hypervolemic. Continue with fluid restriction and Lasix Atrial fibrillation, on Eliquis decompensated liver cirrhosis secondary to Stuart with ascites , status post paracentesis 11/02. As per GI team patient needs weekly paracentesis Type 2 diabetes mellitus Hypertension Hyperlipidemia History of pulmonary embolism after fracture history with esophageal varices status post banding Diabetic neuropathy chronic low back pain with right radiculopathy secondary to spinal stenosis Bilateral leg edema Hypothyroidism History of vertigo History of overactive bladder Plan: This is a pleasant 80 years old female who presents with GI bleed. We will rest art Eliquis as cleared by GI team. Continue with Protonix twice a day. Status post one unit of blood transfusion, GI team are following the patient closely, also and oral iron. With the patient on a more Fluid restriction and monitor sodium Labs and medication were reviewed.. Continue same treatment. Continue with symptomatic treatment. Resume home medication. Monitor lytes and vitals. DVT and GI prophylaxis. Further recommendations depends on the clinical course of the patient DVT prophylaxis: Resume liquid spur GI team GI Prophylaxis: ppi PT/OT: Pending Prognosis is guarded
[2020-11-04] MEDS: MONTELUKAST 10 MG TAB PO SCH (21:41)
[2020-11-04] MEDS: FERROUS SULFATE 325 MG TAB PO SCH (21:43)
[2020-11-05 07:27] LABS: Glucose,Whole Blood 128 mg/dL (75-99)
[2020-11-05] MEDS: INSULIN ASPART (NovoLOG) 100 UNIT/ML VIAL SQ SCH ×2 (07:29→12:13)
[2020-11-05] MEDS: PANTOPRAZOLE 40 MG/10 ML VIAL IVP SCH (08:32)
[2020-11-05] MEDS: HYDROcodone/APAP 5-325MG 1 EACH TAB PO SCH ×2 (08:32→12:18)
[2020-11-05] MEDS: FUROSEMIDE 20 MG TAB PO SCH (08:33)
[2020-11-05] MEDS: APIXABAN 5 MG TAB PO SCH (08:33)
[2020-11-05] MEDS: FERROUS SULFATE 325 MG TAB PO SCH (08:33)
[2020-11-05] MEDS: CHOLECALCIFEROL 25 MCG (1000 IU) TABLET PO SCH (08:33)
[2020-11-05] MEDS: OXYBUTYNIN 10 MG TAB.ER.24 PO SCH (08:33)
[2020-11-05] MEDS: LEVOTHYROXINE 25 MCG TAB PO SCH (08:34)
[2020-11-05] MEDS: MIDODRINE 5 MG TAB PO SCH ×2 (08:34→12:18)
[2020-11-05] MEDS: ESCITALOPRAM 5 MG TAB PO SCH (08:34)
[2020-11-05 10:35] LABS: African American GFR (CKD) 61 (>60 ml/min/1.73 sqM); Anion Gap 9 mmol/L; Blood Urea Nitrogen 29 mg/dL (7-17); Calcium 8.1 mg/dL (8.4-10.2); Carbon Dioxide 23 mmol/L (22-30); Chloride 93 mmol/L (98-107); Glucose 136 mg/dL (74-99); Non-African American GFR(CKD) 53 (>60 ml/min/1.73 sqM); Potassium 3.8 mmol/L (3.5-5.1); Sodium 125 mmol/L (137-145)
[2020-11-05 10:39] LABS: Anisocytosis Slight; HCT 29.8 % (34.0-46.0); HGB 8.9 gm/dL (11.4-16.0); Hypochromasia Marked; MCH 22.8 pg (25.0-35.0); MCHC 29.8 g/dL (31.0-37.0); MCV 76.4 fL (80.0-100.0); Mean Platelet Volume 7.1; Microcytosis Slight; Platelet Count 300 k/uL (150-450); Poikilocytosis Moderate; RDW 18.5 % (11.5-15.5); WBC 4.4 k/uL (3.8-10.6)
[2020-11-05 11:50] LABS: Glucose,Whole Blood 109 mg/dL (75-99)
[2020-11-05] MEDS ORDERED: FUROSEMIDE 10 MG/ML 2 ML VIAL IV ONE (12:17)
[2020-11-05] MEDS: FOLIC ACID 1 MG TAB PO SCH (12:18)
[2020-11-05] MEDS: THIAMINE 100 MG TAB PO SCH (12:18)
--- NOTE | 2020-11-05 12:21 | P.NPCON ---
History of Present Illness - Reason for Consult hyponatremia - History of Present Illness Reason for visitation: Hyponatremia History of present is: Patient is a 80-year-old female seen in consultation for hyponatremia. Patient presented to the hospital on 11/02/2020 for generalized weakness. 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 Last paracentesis was on Thursday and she had 5.9 L drained. She admits to good urine output. No hematuria or dysuria. Denies use of nonsteroidals. No history of kidney disease. She is currently maintained on oral Lasix 20 mg twice daily. Does have edema in the lower extremities. Blood pressure this morning was 106/67. She is maintained on midodrine. Oral intake is fair. No vomiting or diarrhea. No chest pain or shortness of breath. She is on fluid restriction. Sodium level on admission was 122 and has been 125 the last 3 days. Vital signs are stable. General: The patient appeared well nourished and normally developed. HEENT: Head exam is unremarkable. Neck is without jugular venous distension. LUNGS: Breath sounds decreased. HEART: Rate and Rhythm are regular. ABDOMEN: Soft, mild distention. EXTREMITITES: 2+ edema. Past Medical History Past Medical History: Atrial Fibrillation, Asthma, Cancer, Diabetes Mellitus, Fibromyalgia, GERD/Reflux, Hyperlipidemia, Hypertension, Liver Disease, Osteoarthritis (OA), Pulmonary Embolus (PE), Thyroid Disorder Additional Past Medical History / Comment(s): Pt recently admitted to [facility] on 08/14/20 with decompensated liver cirrhosis 2ndary to ALFONSO with ascities/acute diarrhea and anemia with transfusion. Other hx: Nonalcoholic fatty liver, liver cirrhosis, ascities with multiple paracentesis and has albumin infusions, esophageal varicies with banding, NIDDM type II, neuropathy bilateral legs/feet, spinal stenosis/low back pain with R side radiculopathy and lately has had pain down L leg, recent bilateral lower leg edema, PE after leg fracture, overactive bladder, hypothyroid, sinus problems, vertigo, bilateral macular degeneration History of Any Multi-Drug Resistant Organisms: None Reported Past Surgical History: Adenoidectomy, Appendectomy, Back Surgery, Breast Surgery, Hysterectomy, Joint Replacement, Orthopedic Surgery, Tonsillectomy Additional Past Surgical History / Comment(s): Multiple paracentesis, lower back and cervical fusions, bilateral total knees, bilateral total shoulders, bilateral carpal tunnel releases, bilateral hand trigger finger releases, R foot bone spur removed, R leg fracture/hardware removed, R breast fatty tumor removed, EGD with esophageal varicies banded, colonoscopy, skin cancer removed, bilateral cataracts removed. Past Anesthesia/Blood Transfusion Reactions: Motion Sickness, Postoperative Nausea & Vomiting (PONV) Additional Past Anesthesia/Blood Transfusion Reaction / Comment(s): Patient received blood in 1959. Past Psychological History: No Psychological Hx Reported Smoking Status: Former smoker Past Alcohol Use History: None Reported Past Drug Use History: None Reported - Past Family History Mother History Unknown: Yes Family Medical History: No Reported History Additional Family Medical History / Comment(s): Mother was healthy and lived to be 87yrs old. Father History Unknown: Yes Additional Family Medical History / Comment(s): Father in a MVA Medications and Allergies Home Medications Medication Instructions Recorded Confirmed Type Levothyroxine Sodium [Synthroid] 25 mcg PO DAILY@0700 03/23/14 11/02/20 History Montelukast [Singulair] 10 mg PO HS@2200 03/23/14 11/02/20 History Oxybutynin Chloride [Ditropan XL] 10 mg PO DAILY@1000 03/23/14 11/02/20 History HYDROcodone/APAP 5-325MG [[place] 1 tab PO QID@07,10,12,16 06/13/15 11/02/20 History 5-325] Evolocumab [Repatha Sureclick] 140 mg SQ Q14D 03/14/20 11/02/20 History EPINEPHrine (Auto Inject) [Epipen] 0.3 mg IM ONCE PRN 04/13/20 11/02/20 History Omeprazole 40 mg PO DAILY 06/20/20 11/02/20 History Apixaban [Eliquis] 5 mg PO BID@1000,2200 #0 08/20/20 11/02/20 Rx Albuterol Inhaler [Ventolin Hfa 1 puff INHALATION RT-Q4H PRN 08/31/20 11/02/20 History Inhaler] Cholecalciferol [Vitamin D3 (25 25 mcg PO DAILY@1000 08/31/20 11/02/20 History Mcg = 1000 Iu)] Lutein 10 mg PO DAILY 08/31/20 11/02/20 History Acetaminophen Tab [Tylenol] 650 mg PO Q6HR PRN tab 09/03/20 11/02/20 Rx Folic Acid 1 mg PO DAILY@1200 30 Days #30 tab 09/03/20 11/02/20 Rx Thiamine [Vitamin B-1] 100 mg PO DAILY@1200 30 Days #30 09/03/20 11/02/20 Rx tab Midodrine [ProAmatine] 2.5 mg PO AC-TID 09/10/20 11/02/20 History Furosemide [Lasix] 40 mg PO BID 10/04/20 11/02/20 History Escitalopram [Lexapro] 5 mg PO DAILY 10/12/20 11/02/20 History Allergies Allergy/AdvReac Type Severity Reaction Status Date / Time venom-wasp [Wasp Venom] Allergy Severe Swelling Verified 11/02/20 15:51 adhesive Allergy Unknown Rash/Hives Verified 11/02/20 15:51 amoxicillin [Amoxicillin] Allergy Unknown Rash/Hives, Verified 11/02/20 15:51 itching fenofibrate nanocrystallized Allergy Unknown Rash/Hives,joint Verified 11/02/20 15:51 [From Tricor] pain fenofibrate,micronized Allergy Unknown Rash/Hives, Verified 11/02/20 15:51 [From Tricor] joint pain hydrochlorothiazide Allergy Unknown Rash/Hives Verified 11/02/20 15:51 Neuromuscular Blockers, Allergy Unknown Rash/Hives Verified 11/02/20 15:51 Steroidal [Steroidal Neuromuscular Blockers] Penicillins Allergy Unknown Rash/Hives, Verified 11/02/20 15:51 red skin shellfish derived Allergy Unknown SKIN RED Verified 11/02/20 15:51 AND WARM simvastatin [From Zocor] Allergy Unknown Rash/Hives, Verified 11/02/20 15:51 joint pain Rudsdvt-Uwm-Xej Reductase Allergy Unknown Rash/Hives, Verified 11/02/20 15:51 Inhibitor joint pain venom-honey bee Allergy Unknown Swelling Verified 11/02/20 15:51 [bee venom (honey bee)] cat dander Allergy Rash/Hives Verified 11/02/20 15:51 ciprofloxacin HCl Allergy Unknown Verified 11/02/20 15:51 [From Cipro] sulfamethoxazole Allergy Rash/Hives Verified 11/02/20 15:51 talc Allergy Rash/Hives Verified 11/02/20 15:51 walnut Allergy Rash/Hives Verified 11/02/20 15:51 clarithromycin AdvReac warm and Verified 11/02/20 15:51 flushed minocycline AdvReac warm and Verified 11/02/20 15:51 flushed prednisone AdvReac Nausea Verified 11/02/20 15:51 soy AdvReac Nausea & Verified 11/02/20 15:51 Vomiting Physical Exam Vitals: Vital Signs Temp Pulse Resp BP Pulse Ox 11/05/20 07:30 97 11/05/20 05:00 98.0 F 78 16 106/67 99 11/04/20 21:00 98.2 F 70 16 103/62 99 11/04/20 12:39 98.0 F 82 16 109/63 99 Intake and Output 11/04/20 11/05/20 11/05/20 22:59 06:59 14:59 Intake Total 480 240 118 Balance 480 240 118 Intake: Oral 480 240 118 Other: Voiding Method Toilet # Voids 2 4 2 # Bowel Movements 1 Results - Lab Results Most recent lab results Calcium 8.1 mg/dL (8.4-10.2) L 11/05/20 09:43 Magnesium 2.2 mg/dL (1.6-2.3) 11/03/20 06:27 11/05/20 09:43 11/05/20 09:43 Assessment and Plan Plan: Assessment: 1. Hypervolemic hyponatremia. Sodium level 122 on admission and is stable at 125 today. 2. Liver cirrhosis. 3. Volume overload. 4. Ascites. Undergoes paracentesis weekly. Last paracentesis was on November 02 and she at 5.9 L drained. 5. GI bleed. Status post blood transfusion. Hemoglobin 8.9 today. Last endoscopy in July. GI following. Plan: Maintain oral Lasix 20 mg twice daily. Add Aldactone 25 mg twice daily. Maintain fluid restriction. Low-salt diet. I will give her additional Lasix 20 mg IV once today. Repeat BMP and magnesium level 2-3 days postdischarge. Follow up outpatient in 1 week. She does receive albumin with the paracentesis. Check serum and urine osmolality and urine sodium level Thank you for the consultation. I will continue to follow the patient with you during her hospital stay.
[2020-11-05 12:24] VITALS: BP 119/67; PULSE 69; RESP 17; TEMP 97.7
[2020-11-05] MEDS ORDERED: SPIRONOLACTONE 25 MG TAB PO SCH (12:30)
--- NOTE | 2020-11-05 13:06 | P.PN ---
Subjective Progress Note Date: 11/05/20 Principal diagnosis: Decompensated cirrhosis, anemia, ascites Is a 80-year-old female with multiple medical comorbidities including atrial fibrillation on eliquis and nonalcoholic liver cirrhosis with ascites and varices presented to the hospital after complaints of weakness and laboratory abnormalities prior to her outpatient paracentesis. She currently receives weekly paracentesis her last one being on Thursday with removal of 5.9 L of fluid. She had a hemoglobin of 6.5 and is status post 1 unit PRBC transfusion. Is denying any signs or symptoms of GI bleed, including no coffee-ground emesis, hematemesis, melena, or hematochezia. She denies any abdominal pain. Objective - Vital Signs Vital signs: Vital Signs Temp 97.7 F 11/05/20 12:23 Pulse 69 11/05/20 12:23 Resp 17 11/05/20 12:23 BP 119/67 11/05/20 12:23 Pulse Ox 99 11/05/20 12:23 Intake & Output 11/04/20 11/05/20 11/05/20 18:59 06:59 18:59 Intake Total 480 240 236 Output Total 300 Balance 180 240 236 Intake: Oral 480 240 236 Output: Urine 300 Other: Voiding Method Toilet Toilet Bedside Commode # Voids 2 4 2 # Bowel Movements 1 1 - Exam General appearance: The patient is alert, oriented, appears in no acute distress. HET: Head is normocephalic and atraumatic. Conjunctiva pink. Sclera anicteric. Neck: Supple without lymphadenopathy. Abdomen: Soft, nontender, distended with bowel sounds. No guarding or rigidity. Extremities: Normal skin color and turgor. No pedal edema Skin: No rashes, no jaundice Neurological: No focal deficits. Alert and oriented 3. - Labs CBC & Chem 7: 11/05/20 09:43 11/05/20 09:43 Labs: Abnormal Lab Results - Last 24 Hours (Table) 11/04/20 11/05/20 11/05/20 Range/Units 17:36 07:25 09:43 Hgb 8.9 L (11.4-16.0) gm/dL Hct 29.8 L (34.0-46.0) % MCV 76.4 L (80.0-100.0) fL MCH 22.8 L (25.0-35.0) pg MCHC 29.8 L (31.0-37.0) g/dL RDW 18.5 H (11.5-15.5) % Sodium (137-145) mmol/L Chloride (98-107) mmol/L BUN (7-17) mg/dL Glucose (74-99) mg/dL POC Glucose (mg/dL) 128 H 128 H (75-99) mg/dL Calcium (8.4-10.2) mg/dL 11/05/20 11/05/20 Range/Units 09:43 11:48 Hgb (11.4-16.0) gm/dL Hct (34.0-46.0) % MCV (80.0-100.0) fL MCH (25.0-35.0) pg MCHC (31.0-37.0) g/dL RDW (11.5-15.5) % Sodium 125 L (137-145) mmol/L Chloride 93 L (98-107) mmol/L BUN 29 H (7-17) mg/dL Glucose 136 H (74-99) mg/dL POC Glucose (mg/dL) 109 H (75-99) mg/dL Calcium 8.1 L (8.4-10.2) mg/dL Assessment and Plan (1) Anemia Narrative/Plan: Yola 80-year-old female with multiple medical comorbidities including decompensated liver cirrhosis with ascites and varices last EGD with banding on 08/07/20 as well as ascites requiring weekly large volume paracentesis. She presented for evaluation of weakness after having multiple lab abnormalities noted during paracentesis. Patient was anemic with a hemoglobin of 5.9 currently 8.2 status post transfusion of PRBCs. She denies any signs or symptom s of GI bleeding. She has had endoscopic evaluation with last EGD in July with no evidence of bleeding at that time. She reports following with the hematology service and receiving IV iron transfusions with the last approximately one month ago. No hematemesis, coffee-ground emesis, hematochezia or melena reported. No abdominal pain except for distention secondary to her ascites. Anemia likely multifactorial secondary to chronic disease, portal hypertension with splenomegaly and underlying cirrhosis. Current Visit: Yes Status: Acute Code(s): D64.9 - ANEMIA, UNSPECIFIED SNOMED Code(s): 330297294 (2) Hyponatremia Current Visit: Yes Status: Acute Code(s): E87.1 - HYPO-OSMOLALITY AND HYPONATREMIA SNOMED Code(s): 34097638 (3) Abdominal distention Current Visit: No Status: Acute Code(s): R14.0 - ABDOMINAL DISTENSION (GASEOUS) SNOMED Code(s): 78505417 (4) Ascites Current Visit: No Status: Acute Code(s): R18.8 - OTHER ASCITES SNOMED Code(s): 613604586 (5) Liver cirrhosis secondary to ALFONSO (nonalcoholic steatohepatitis) Current Visit: No Status: Acute Code(s): K75.81 - NONALCOHOLIC STEATOHEPATITIS (ALFONSO); K74.60 - UNSPECIFIED CIRRHOSIS OF LIVER SNOMED Code(s): 853738514 Plan: 1. Supportive care 2. Low sodium diet 3. Continue midrodrine 4. Continue Protonix twice a day 5. Continue to monitor CBC, BMP, LFTs 6. Electrolyte correction as per primary team with patient severely hyponatremic on presentation likely contributing to fatigue 7. Follow up with GI after discharge and continue weekly large volume paracentesis Thank you for this consultation, we will continue to follow Dr. Jose Maciel I agree with the dictator's note, documented as a scribe by Amara Londno.
[2020-11-08] MEDS ORDERED: EVOLOCUMAB 140 MG/ML SQ SCH (09:00)
--- NOTE | 2020-11-12 15:04 | P.DS ---
Providers Date of admission: 11/02/20 14:20 Attending physician: Yves Sanchez MD Consults: 11/02/20 15:14 Consult Physician Urgent Consulting Provider: Saira Maciel Consult Reason/Comments: gi bleed , decompensated liver cirrhosis Do you want consulting provider notified?: Yes 11/05/20 11:14 Consult Physician Routine Consulting Provider: Bernabe Solitario Consult Reason/Comments: hyponatremia reccomendations Do you want consulting provider notified?: Yes Primary care physician: [facility] Course: date of service: 11/05/2020 diagnoses: Acute anemia, thought multifactorial due to her chronic disease, portal hypertension with splenomegaly and underlying cirrhosis, no evidence of GI bleed. GI team and okay to resume Eliquis and dc pt Hyponatremia, hypervolemic. Continue with fluid restriction and Lasix, aldactone added by dining room tables set up attendant and to f/u with him as outpatient Atrial fibrillation, on Eliquis decompensated liver cirrhosis secondary to [place] with ascites , status post paracentesis 11/02. As per GI team patient needs weekly paracentesis Type 2 diabetes mellitus Hypertension Hyperlipidemia History of pulmonary embolism after fracture history with esophageal varices status post banding Diabetic neuropathy chronic low back pain with right radiculopathy secondary to spinal stenosis Bilateral leg edema Hypothyroidism History of vertigo History of overactive bladder hospital course: This is a pleasant 80 years old female with past medical history of atrial fibrillation on Eliquis, asthma, diabetes mellitus, fibromyalgia, hypertension, hyperlipidemia, pulmonary embolism, recently discharged from hospital on 08/14/20 for decompensated liver cirrhosis secondary to Stuart with ascites and diarrhea. Also history with esophageal varices status post banding, diabetic neuropathy, chronic low back pain with right radiculopathy secondary to spinal stenosis, bilateral leg edema overactive bladder, hypothyroidism, vertigo. Patient was going to do paracentesis for her routine INR visit, when they checked her labs they noticed she has low hemoglobin and low sodium and she was sent to emergency room per Dr. perry recommendation patient has self did not notice any bleeding, pt recieved one unit of blood transfusion , Hb remained stable, eliquis is started by GI team recommendation and no more evidence of bleeding after that. risk of bleeding is explained to pt extensively and she is willing to resume taking eliqius , as benefits more than risks pt also evaluated by dining room tables set up attendant who added aldactone with recommendation for close out pt follow up pt remained asymptomatic for more than 48 hours and she was eager to go home since yesterday. pt is got cleared for discharge by all consultants including GI and dining room tables set up attendant pt is found stable for dischage home in guarded prognosis i talked to pt about her discharge instructions in details and she verbalized understanding and acceptance pt was instructed to follow up with her pcp on 11/13 and [facility] laisha overton (GI) on 11/12 and from neprhology on 11/19 and from hematology on 11/23 and she agrees physical exam GENERAL: AAO x3, not in any acute distress. CARDIOVASCULAR: S1 and S2 present. No murmurs, rubs, or gallops. PULMONARY: Chest is clear to auscultation, no wheezing , no crepitation ABDOMEN: Soft, nontender, nondistended, normoactive bowel sounds. No palpable organomegaly. EXTREMITIES: No cyanosis, clubbing, or pedal edema. NEUROLOGICAL: Gross neurological examination did not reveal any focal deficits. time spent more than 35 min Patient Condition at Discharge: Fair Plan - Discharge Summary New Discharge Prescriptions: New Furosemide [Lasix] 20 mg PO BID #60 tab Pantoprazole Sodium [Protonix] 40 mg PO BID #60 tablet. Spironolactone [Aldactone] 25 mg PO BID #60 tab Ferrous Sulfate [Iron (65 MG Elemental)] 325 mg PO BID-W/MEALS #60 tab Continue Montelukast [Singulair] 10 mg PO HS@2200 Levothyroxine Sodium [Synthroid] 25 mcg PO DAILY@0700 Oxybutynin Chloride [Ditropan XL] 10 mg PO DAILY@1000 EPINEPHrine (Auto Inject) [Epipen] 0.3 mg IM ONCE PRN PRN Reason: Anaphylaxis Apixaban [Eliquis] 5 mg PO BID@1000,2200 #0 Albuterol Inhaler [Ventolin Hfa Inhaler] 1 puff INHALATION RT-Q4H PRN PRN Reason: Shortness Of Breath Cholecalciferol [Vitamin D3 (25 Mcg = 1000 Iu)] 25 mcg PO DAILY@1000 Folic Acid 1 mg PO DAILY@1200 30 Days #30 tab Acetaminophen Tab [Tylenol] 650 mg PO Q6HR PRN tab PRN Reason: Mild Pain Or Fever > 100.5 Thiamine [Vitamin B-1] 100 mg PO DAILY@1200 30 Days #30 tab Midodrine [ProAmatine] 2.5 mg PO AC-TID Escitalopram [Lexapro] 5 mg PO DAILY Changed HYDROcodone/APAP 5-325MG [[place] 5-325] 1 tab PO BID PRN #0 PRN Reason: Pain Discontinued Evolocumab [Repatha Sureclick] 140 mg SQ Q14D Omeprazole 40 mg PO DAILY Lutein 10 mg PO DAILY Furosemide [Lasix] 40 mg PO BID Discharge Medication List Levothyroxine Sodium [Synthroid] 25 mcg PO DAILY@0700 03/23/14 [History] Montelukast [Singulair] 10 mg PO HS@219903/23/14 [History] Oxybutynin Chloride [Ditropan XL] 10 mg PO DAILY@1000 03/23/14 [History] EPINEPHrine (Auto Inject) [Epipen] 0.3 mg IM ONCE PRN 04/13/20 [History] Apixaban [Eliquis] 5 mg PO BID@1000,2199 #0 08/20/20 [Rx] Albuterol Inhaler [Ventolin Hfa Inhaler] 1 puff INHALATION RT-Q4H PRN 08/31/20 [History] Cholecalciferol [Vitamin D3 (25 Mcg = 1000 Iu)] 25 mcg PO DAILY@1000 08/31/20 [History] Acetaminophen Tab [Tylenol] 650 mg PO Q6HR PRN tab 09/03/20 [Rx] Folic Acid 1 mg PO DAILY@1200 30 Days #30 tab 09/03/20 [Rx] Thiamine [Vitamin B-1] 100 mg PO DAILY@1200 30 Days #30 tab 09/03/20 [Rx] Midodrine [ProAmatine] 2.5 mg PO AC-TID 09/10/20 [History] Escitalopram [Lexapro] 5 mg PO DAILY 10/12/20 [History] Ferrous Sulfate [Iron (65 MG Elemental)] 325 mg PO BID-W/MEALS #60 tab 11/05/20 [Rx] Furosemide [Lasix] 20 mg PO BID #60 tab 11/05/20 [Rx] HYDROcodone/APAP 5-325MG [[place] 5-325] 1 tab PO BID PRN #0 11/05/20 [Rx] Pantoprazole Sodium [Protonix] 40 mg PO BID #60 tablet.dr 11/05/20 [Rx] Spironolactone [Aldactone] 25 mg PO BID #60 tab 11/05/20 [Rx] Follow up Appointment(s)/Referral(s): Tati Overton PAC [REFERRING] - 11/12/20 1:30 pm Shea Amezcua MD [Primary Care Provider] - 11/13/20 1:30 pm Bernabe Solitario DO [STAFF PHYSICIAN] - 11/19/20 9:00 am (This is a tele health you will get a call in the morning to check you in make sure you answer that call. They will then call you on your phone for your appointment.) [facility] Visiting Nurse, [NON-STAFF] - Darren Roblero MD [STAFF PHYSICIAN] - 11/23/20 2:15 pm Activity/Diet/Wound Care/Special Instructions: 800 ml fluid restriction daily Low-salt diet Activity is restricted till you see your doctor Discharge Disposition: HOME WITH HOME HEALTH SERVICES
== END 2020-11-05 15:27 | disposition home health service (06) | DRG 433 ==
LOC: EC 11:09 → 5NMEDONC 14:20
PROVIDERS: ADMIT Internal Medicine; ATTEND Internal Medicine
PROC: 0W9G3ZZ Drainage of Peritoneal Cavity, Percutaneous Approach (ICD-10-PCS; principal; 2020-11-02)
PROC: 30233N1 Transfusion of Nonautologous Red Blood Cells into Peripheral Vein, Percutaneous Approach (ICD-10-PCS; principal; 2020-11-02)
DX: K74.60 Unspecified cirrhosis of liver (principal); D62 Acute posthemorrhagic anemia; E87.1 Hypo-osmolality and hyponatremia; K76.6 Portal hypertension; R18.8 Other ascites; K75.81 Nonalcoholic steatohepatitis (NASH); D63.8 Anemia in other chronic diseases classified elsewhere; E03.9 Hypothyroidism, unspecified; E11.40 Type 2 diabetes mellitus with diabetic neuropathy, unspecified; E78.5 Hyperlipidemia, unspecified; G89.29 Other chronic pain; I10 Essential (primary) hypertension; I48.91 Unspecified atrial fibrillation; J45.909 Unspecified asthma, uncomplicated; M48.00 Spinal stenosis, site unspecified; M54.10 Radiculopathy, site unspecified; M79.7 Fibromyalgia; Z20.822 Contact with and (suspected) exposure to COVID-19; N32.81 Overactive bladder; Z79.01 Long term (current) use of anticoagulants; Z79.890 Hormone replacement therapy; Z79.899 Other long term (current) drug therapy; Z85.828 Personal history of other malignant neoplasm of skin; Z86.711 Personal history of pulmonary embolism; Z87.891 Personal history of nicotine dependence; Z90.710 Acquired absence of both cervix and uterus; Z88.1 Allergy status to other antibiotic agents; Z91.030 Bee allergy status; Z91.018 Allergy to other foods; Z88.0 Allergy status to penicillin; Z91.013 Allergy to seafood; Z88.8 Allergy status to other drugs, medicaments and biological substances; Z91.048 Other nonmedicinal substance allergy status
CPT/HCPCS: 36415; 49083; 71046; 80048; 80053; 81003; 83605; 83735; 83880; 83930; 83935; 84300; 84484; 85025; 85027; 85610; 85730; 86850; 86900; 86901; 86920; 87635; 93005; 94760; 99285

== ENCOUNTER 2020-11-09 08:52 | Day surgery (SDC) | payer MEDICARE ==
[2020-11-09 09:43] VITALS: TEMP 98.2
[2020-11-09 09:51] LABS: Mean Platelet Volume 8.1; Platelet Count 315 k/uL (150-450)
[2020-11-09 10:01] LABS: INR 1.3 (<1.2); Prothrombin Time 13.2 sec (9.0-12.0)
[2020-11-09] MEDS: ALBUMIN HUMAN 25% 50 ML in EMPTY BAG 1 BAG IVPB SCH ×4 (10:41→11:27)
[2020-11-09 12:09] VITALS: RESP 16
[2020-11-09 12:10] VITALS: BP 119/61; PULSE 75
--- NOTE | 2020-11-09 13:02 | US ---
Ultrasound-guided paracentesis. DATE OF EXAM: 11/09/2020 CLINICAL HISTORY: Ascites The procedure was discussed with the patient. The risks, complications, benefits, and alternatives we re discussed and any questions were answered. Informed consent was obtained. The patient was placed s upine on the ultrasound table and prepped and draped in the usual sterile fashion. All elements of maximal barrier technique were utilized. Under ultrasound guidance, access into the right lower quadrant was obtained, via the paracentesis catheter system and direct ultrasound guidanc e. Approximately 8.1 liters of straw-colored fluid was removed. The patient was stable throughout the pr ocedure and remained stable upon discharge from Department of Radiology. IMPRESSION: Successful paracentesis under ultrasound guidance.
== END 2020-11-09 12:10 | disposition home or self-care (01) ==
LOC: RADPROMAIN 08:52
PROVIDERS: ATTEND Internal Medicine Gastroenterology
DX: R18.8 Other ascites (principal); K74.60 Unspecified cirrhosis of liver
CPT/HCPCS: 82565; 82947; 85049; 85610; 36415; 49083; P9047

== ENCOUNTER 2020-11-16 08:37 | Day surgery (SDC) | payer MEDICARE ==
[2020-11-16 09:02] VITALS: RESP 16; TEMP 98.1
[2020-11-16] MEDS ORDERED: ALBUMIN HUMAN 25% 50 ML in EMPTY BAG 1 BAG IVPB SCH ×2 (09:30→10:00)
[2020-11-16 10:01] LABS: Mean Platelet Volume 7.1; Platelet Count 306 k/uL (150-450)
[2020-11-16 10:10] LABS: INR 1.2 (<1.2); Prothrombin Time 12.6 sec (9.0-12.0)
[2020-11-16] MEDS: ALBUMIN HUMAN 25% 50 ML in EMPTY BAG 1 BAG IVPB SCH ×4 (11:11→11:56)
[2020-11-16 12:01] VITALS: BP 130/59; PULSE 80
--- NOTE | 2020-11-16 14:29 | US ---
EXAMINATION TYPE: US paracentesis abd w/image DATE OF EXAM: 11/16/2020 COMPARISON: NONE HISTORY: Ascites. PROCEDURE: Maximal barrier technique was utilized. The skin overlying a suitable pocket of fluid was localized with ultrasound and the overlying skin was prepped and draped. Ultrasound was utilized with sterile technique. Lidocaine was used for local anesthesia and a skin saurabh made with a scalpel. Catheter was advanced under direct ultrasound guidance into a suitable pocket of fluid and approximately 8 liters of serous fluid were removed. Catheter was withdrawn and hemostasis achieved. There is no immediate complication; the patient is discharged in stable condition. IMPRESSION: STATUS POST ULTRASOUND GUIDED PARACENTESIS FOR PALLIATION OF ASCITES. THIS PROCEDURE WA S PERFORMED BY THE UNDERSIGNED.
== END 2020-11-16 12:21 | disposition home or self-care (01) ==
LOC: RADPROMAIN 08:37
PROVIDERS: ATTEND Internal Medicine Gastroenterology
DX: R18.8 Other ascites (principal)
CPT/HCPCS: 82565; 82947; 85049; 85610; 36415; 49083; P9047

== ENCOUNTER 2020-11-23 11:44 | Day surgery (SDC) | payer MEDICARE ==
[2020-11-23 12:28] LABS: Mean Platelet Volume 7.4; Platelet Count 555 k/uL (150-450)
[2020-11-23 12:31] LABS: INR 1.4 (<1.2); Prothrombin Time 13.8 sec (9.0-12.0)
[2020-11-23 12:45] VITALS: TEMP 98.2
[2020-11-23] MEDS: ALBUMIN HUMAN 25% 50 ML in EMPTY BAG 1 BAG IVPB SCH ×3 (13:12→13:55)
[2020-11-23 13:26] VITALS: RESP 16
[2020-11-23 15:37] VITALS: BP 109/72; PULSE 78
--- NOTE | 2020-11-23 16:03 | US ---
EXAMINATION TYPE: US paracentesis abd w/image DATE OF EXAM: 11/23/2020 COMPARISON: NONE HISTORY: Ascites. PROCEDURE: Maximal barrier technique was utilized. The skin overlying a suitable pocket of fluid was localized with ultrasound and the overlying skin was prepped and draped. Ultrasound was utilized with sterile technique. Lidocaine was used for local anesthesia and a skin saurabh made with a scalpel. Catheter was advanced under direct ultrasound guidance into a suitable pocket of fluid and approximately 7.3 liter s of serous fluid were removed. Catheter was withdrawn and hemostasis achieved. There is no immedia te complication; the patient is discharged in stable condition. IMPRESSION: STATUS POST ULTRASOUND GUIDED PARACENTESIS FOR PALLIATION OF ASCITES. THIS PROCEDURE WA S PERFORMED BY THE UNDERSIGNED.
== END 2020-11-23 15:15 | disposition home or self-care (01) ==
LOC: RADPROMAIN 11:44
PROVIDERS: ATTEND Internal Medicine Gastroenterology
DX: R18.8 Other ascites (principal)
CPT/HCPCS: 82565; 82947; 85049; 85610; 49083; P9047

== ENCOUNTER 2020-11-30 07:52 | Day surgery (SDC) | payer MEDICARE ==
[2020-11-30 09:00] LABS: Glucose,Whole Blood 153 mg/dL (75-99)
[2020-11-30 09:10] LABS: Anisocytosis Slight; Basophils % (A) 0 %; Eosinophils # (A) 0.1 k/uL (0-0.7); Eosinophils % (A) 1 %; HCT 27.3 % (34.0-46.0); HGB 8.2 gm/dL (11.4-16.0); Hypochromasia Marked; Lymphocytes # (A) 0.6 k/uL (1.0-4.8); Lymphocytes % (A) 7 %; MCH 23.9 pg (25.0-35.0); MCHC 30.2 g/dL (31.0-37.0); Mean Platelet Volume 7.4; Microcytosis Slight; Monocytes # (A) 0.4 k/uL (0-1.0); Monocytes % (A) 5 %; Neutrophils % (A) 86 %; Platelet Count 364 k/uL (150-450); Poikilocytosis Slight; RBC 3.45 m/uL (3.80-5.40); RDW 19.3 % (11.5-15.5); WBC 8.2 k/uL (3.8-10.6)
[2020-11-30 09:11] LABS: INR 1.3 (<1.2); Prothrombin Time 13.6 sec (9.0-12.0)
[2020-11-30 09:19] LABS: Calcium 8.3 mg/dL (8.4-10.2); Potassium 4.3 mmol/L (3.5-5.1)
[2020-11-30 09:35] VITALS: TEMP 98
[2020-11-30] MEDS: ALBUMIN HUMAN 25% 50 ML in EMPTY BAG 1 BAG IVPB SCH ×3 (10:53→11:59)
[2020-11-30 12:21] VITALS: BP 133/70; PULSE 74; RESP 16
--- NOTE | 2020-11-30 17:22 | US ---
EXAMINATION TYPE: US paracentesis abd w/image DATE OF EXAM: 11/30/2020 CLINICAL HISTORY: Cirrhosis of liver. Ascites. COMPARISON: 11/23/2020 [employer]ANSCRIBING [employer]PER[employer] SUPERVISOR: Dr. Mireya Gonzalez PROCEDURE: Preprocedure preliminary ultrasound imaging demonstrates moderate volume ascites. The procedure was discussed with the patient. The risks, complications, benefits, and alternatives we re discussed and any questions were answered. Informed consent was obtained. The patient was placed s upine on the ultrasound table and prepped and draped in the usual sterile fashion. All elements of maximal barrier technique were utilized. Under ultrasound guidance, access into the right lower quadrant was obtained with a 5 [place] one-step centesis catheter. Approximately 3.5 liters of clear serous fluid was removed. Catheter was removed and sterile bandage was applied. The patient was stable throughout the procedure and remained stable upon discharge from Department of Radiology. IMPRESSION: Successful ultrasound-guided paracentesis, with removal of 3.5 liters of clear serous fluid.
== END 2020-11-30 12:20 | disposition home or self-care (01) ==
LOC: RADPROMAIN 07:52
PROVIDERS: ATTEND Internal Medicine Gastroenterology
DX: K70.31 Alcoholic cirrhosis of liver with ascites (principal); Z20.822 Contact with and (suspected) exposure to COVID-19
CPT/HCPCS: 76937; 80048; 85025; 85610; 87635; 49083; C1751; P9047; 36410

== ENCOUNTER 2020-12-07 11:36 | Day surgery (SDC) | payer MEDICARE ==
[2020-12-07 12:34] VITALS: RESP 16; TEMP 97.8
[2020-12-07 12:40] LABS: Mean Platelet Volume 7.3; Platelet Count 318 k/uL (150-450)
[2020-12-07 12:52] LABS: INR 1.3 (<1.2); Prothrombin Time 13.2 sec (9.0-12.0)
[2020-12-07] MEDS: ALBUMIN HUMAN 25% 50 ML in EMPTY BAG 1 BAG IVPB SCH ×4 (14:45→15:46)
[2020-12-07 15:32] VITALS: BP 124/58; PULSE 74
--- NOTE | 2020-12-07 17:07 | US ---
EXAMINATION TYPE: US paracentesis abd w/image DATE OF EXAM: 12/07/2020 COMPARISON: NONE HISTORY: Ascites. PROCEDURE: Maximal barrier technique was utilized. The skin overlying a suitable pocket of fluid was localized with ultrasound and the overlying skin was prepped and draped. Ultrasound was utilized with sterile technique. Lidocaine was used for local anesthesia and a skin saurabh made with a scalpel. Catheter was advanced under direct ultrasound guidance into a suitable pocket of fluid and approximately 6.4 liter s of serous fluid were removed. Catheter was withdrawn and hemostasis achieved. There is no immedia te complication; the patient is discharged in stable condition. IMPRESSION: STATUS POST ULTRASOUND GUIDED PARACENTESIS FOR PALLIATION OF ASCITES. THIS PROCEDURE WA S PERFORMED BY THE UNDERSIGNED.
== END 2020-12-07 15:47 | disposition home or self-care (01) ==
LOC: RADPROMAIN 11:36
PROVIDERS: ATTEND Internal Medicine Gastroenterology
DX: R18.8 Other ascites (principal); K74.60 Unspecified cirrhosis of liver
CPT/HCPCS: 82565; 82947; 85049; 85610; 36415; 49083; P9047

== ENCOUNTER → 2020-12-11 | Outpatient (CLI) | payer MEDICARE ==
[2020-12-11 19:06] LABS: HCT 29.8 % (37.2-46.3); HGB 8.4 g/dL (12.0-15.0); MCH 24.4 pg (27.0-32.0); MCHC 28.2 g/dL (32.0-37.0); MCV 86.6 fL (80.0-97.0); Mean Platelet Volume 11.6 fL (9.5-12.2); Platelet Count 278 X 10*3/uL (140-440); RBC 3.44 X 10*6/uL (4.10-5.20); RDW 25.4 % (11.5-14.5); WBC 7.02 X 10*3/uL (4.50-10.00)
[2020-12-11 19:15] LABS: INR 1.2 (0.90-1.11); Prothrombin Time 12.9 sec (9.9-11.9)
[2020-12-11 21:03] LABS: Albumin 3.2 g/dL (3.80-4.90); Bilirubin, Conjugated 0.2 mg/dL (0.20-0.40); Bilirubin,Unconjugated 0.2 mg/dL; Globulin 1.6 g/dL (1.6-3.3); Total Bilirubin 0.4 mg/dL (0.2-1.2); Total Protein 4.8 g/dL (6.2-8.2)
== END | disposition home or self-care (01) ==
LOC: LABWHC1 12:59
PROVIDERS: ATTEND Physician Assistant
DX: K74.60 Unspecified cirrhosis of liver (principal)
CPT/HCPCS: 36415; 80076; 82105; 85027; 85610

== ENCOUNTER 2020-12-14 12:17 | Day surgery (SDC) | payer MEDICARE ==
[2020-12-14 12:29] VITALS: RESP 16; TEMP 97.9
[2020-12-14 13:01] LABS: Mean Platelet Volume 9.1; Platelet Count 252 k/uL (150-450)
[2020-12-14 13:04] LABS: INR 1.3 (<1.2); Prothrombin Time 13.1 sec (9.0-12.0)
[2020-12-14] MEDS: ALBUMIN HUMAN 25% 50 ML in EMPTY BAG 1 BAG IVPB SCH ×4 (13:54→14:54)
[2020-12-14 14:37] VITALS: BP 123/65
[2020-12-14 14:51] VITALS: PULSE 75
--- NOTE | 2020-12-14 15:25 | US ---
EXAMINATION TYPE: US paracentesis abd w/image DATE OF EXAM: 12/14/2020 COMPARISON: NONE HISTORY: Ascites. PROCEDURE: Maximal barrier technique was utilized. The skin overlying a suitable pocket of fluid was localized with ultrasound and the overlying skin was prepped and draped. Ultrasound was utilized with sterile technique. Lidocaine was used for local anesthesia and a skin saurabh made with a scalpel. Catheter was advanced under direct ultrasound guidance into a suitable pocket of fluid and approximately 6.5 liter s of serous fluid were removed. Catheter was withdrawn and hemostasis achieved. There is no immedia te complication; the patient is discharged in stable condition. IMPRESSION: STATUS POST ULTRASOUND GUIDED PARACENTESIS FOR PALLIATION OF ASCITES. THIS PROCEDURE WA S PERFORMED BY THE UNDERSIGNED.
== END 2020-12-14 15:05 | disposition home or self-care (01) ==
LOC: RADPROMAIN 12:17
PROVIDERS: ATTEND Internal Medicine Gastroenterology
DX: K74.60 Unspecified cirrhosis of liver (principal); Z88.1 Allergy status to other antibiotic agents; Z91.030 Bee allergy status; Z91.038 Other insect allergy status; Z88.0 Allergy status to penicillin; Z91.013 Allergy to seafood; Z88.2 Allergy status to sulfonamides; Z88.8 Allergy status to other drugs, medicaments and biological substances; Z91.048 Other nonmedicinal substance allergy status; Z91.09 Other allergy status, other than to drugs and biological substances
CPT/HCPCS: 82565; 82947; 85049; 85610; 36415; 49083; P9047

== ENCOUNTER 2020-12-21 12:09 | Day surgery (SDC) | payer MEDICARE ==
[2020-12-21 13:44] LABS: Mean Platelet Volume 7.6; Platelet Count 542 k/uL (150-450)
[2020-12-21 13:49] LABS: INR 1.2 (<1.2); Prothrombin Time 12.4 sec (9.0-12.0)
[2020-12-21 13:58] VITALS: RESP 16; TEMP 97.3
[2020-12-21] MEDS: ALBUMIN HUMAN 25% 50 ML in EMPTY BAG 1 BAG IVPB SCH ×4 (14:06→15:25)
[2020-12-21 15:29] VITALS: BP 135/67; PULSE 78
--- NOTE | 2020-12-21 17:01 | US ---
EXAMINATION TYPE: US paracentesis abd w/image DATE OF EXAM: 12/21/2020 COMPARISON: NONE HISTORY: Ascites. PROCEDURE: Maximal barrier technique was utilized. The skin overlying a suitable pocket of fluid was localized with ultrasound and the overlying skin was prepped and draped. Ultrasound was utilized with sterile technique. Lidocaine was used for local anesthesia and a skin saurabh made with a scalpel. Catheter was advanced under direct ultrasound guidance into a suitable pocket of fluid and approximately 8.9 liter s of serous fluid were removed. Catheter was withdrawn and hemostasis achieved. There is no immedia te complication; the patient is discharged in stable condition. IMPRESSION: STATUS POST ULTRASOUND GUIDED PARACENTESIS FOR PALLIATION OF ASCITES. THIS PROCEDURE WA S PERFORMED BY THE UNDERSIGNED.
== END 2020-12-21 15:56 | disposition home or self-care (01) ==
LOC: RADPROMAIN 12:09
PROVIDERS: ATTEND Internal Medicine Gastroenterology
DX: R18.8 Other ascites (principal)
CPT/HCPCS: 82565; 82947; 85049; 85610; 49083; P9047

== ENCOUNTER 2020-12-28 12:44 | Day surgery (SDC) | payer MEDICARE ==
[2020-12-28 13:28] VITALS: TEMP 98.4
[2020-12-28 13:36] LABS: Platelet Count 344 k/uL (150-450)
[2020-12-28 13:44] LABS: INR 1.4 (<1.2); Prothrombin Time 13.8 sec (9.0-12.0)
[2020-12-28] MEDS: ALBUMIN HUMAN 25% 50 ML in EMPTY BAG 1 BAG IVPB SCH ×4 (14:30→15:15)
[2020-12-28 15:17] VITALS: RESP 14
[2020-12-28 15:58] VITALS: BP 122/58; PULSE 82
--- NOTE | 2021-01-07 08:13 | US ---
EXAMINATION TYPE: US paracentesis abd w/image DATE OF EXAM: 12/28/2020 COMPARISON: NONE HISTORY: Ascites. PROCEDURE: Maximal barrier technique was utilized. The skin overlying a suitable pocket of fluid was localized with ultrasound and the overlying skin was prepped and draped. Ultrasound was utilized with sterile technique. Lidocaine was used for local anesthesia and a skin saurabh made with a scalpel. Catheter was advanced under direct ultrasound guidance into a suitable pocket of fluid and approximately 8.7 liter s of serous fluid were removed. Catheter was withdrawn and hemostasis achieved. There is no immedia te complication; the patient is discharged in stable condition. IMPRESSION: STATUS POST ULTRASOUND GUIDED PARACENTESIS FOR PALLIATION OF ASCITES. THIS PROCEDURE WA S PERFORMED BY THE UNDERSIGNED.
== END 2020-12-28 16:10 | disposition home or self-care (01) ==
LOC: RADPROMAIN 12:44
PROVIDERS: ATTEND Internal Medicine Gastroenterology
DX: R18.8 Other ascites (principal)
CPT/HCPCS: 82565; 82947; 85049; 85610; 36415; 49083; P9047

== ENCOUNTER 2021-01-04 11:17 | Day surgery (SDC) | payer MEDICARE ==
[2021-01-04 11:56] LABS: Glucose,Whole Blood 141 mg/dL (75-99)
[2021-01-04 12:35] LABS: Mean Platelet Volume 8.1; Platelet Count 346 k/uL (150-450)
[2021-01-04 12:45] VITALS: RESP 16; TEMP 98.4
[2021-01-04 12:49] LABS: INR 1.2 (<1.2); Prothrombin Time 12.2 sec (9.0-12.0)
[2021-01-04] MEDS: ALBUMIN HUMAN 25% 50 ML in EMPTY BAG 1 BAG IVPB SCH ×4 (13:36→14:27)
[2021-01-04 14:33] VITALS: BP 118/67; PULSE 79
--- NOTE | 2021-01-04 15:36 | US ---
Ultrasound-guided paracentesis. DATE OF EXAM: 01/04/2021 CLINICAL HISTORY: Ascites The procedure was discussed with the patient. The risks, complications, benefits, and alternatives we re discussed and any questions were answered. Informed consent was obtained. The patient was placed s upine on the ultrasound table and prepped and draped in the usual sterile fashion. All elements of maximal barrier technique were utilized. Under ultrasound guidance, access into the right lower quadrant was obtained, via the paracentesis catheter system and direct ultrasound guidanc e. Approximately 5.2 liters of straw-colored fluid was removed. The patient was stable throughout the pr ocedure and remained stable upon discharge from Department of Radiology. IMPRESSION: Successful paracentesis under ultrasound guidance.
== END 2021-01-04 12:55 | disposition home or self-care (01) ==
LOC: RADPROMAIN 11:17
PROVIDERS: ATTEND Internal Medicine Gastroenterology
DX: R18.8 Other ascites (principal); K74.60 Unspecified cirrhosis of liver; Z88.1 Allergy status to other antibiotic agents; Z91.030 Bee allergy status; Z91.038 Other insect allergy status; Z91.013 Allergy to seafood; Z88.2 Allergy status to sulfonamides; Z88.8 Allergy status to other drugs, medicaments and biological substances; Z91.018 Allergy to other foods; Z91.09 Other allergy status, other than to drugs and biological substances
CPT/HCPCS: 49083; 36410; 76937; 82565; 82947; 85049; 85610; 36415; C1751; P9047

== ENCOUNTER → 2021-01-11 | Day surgery (SDC) | payer MEDICARE ==
[2021-01-11 12:51] LABS: Mean Platelet Volume 8.1; Platelet Count 270 k/uL (150-450)
[2021-01-11 12:52] VITALS: TEMP 98.3
[2021-01-11 12:55] LABS: INR 1.2 (<1.2); Prothrombin Time 12.3 sec (9.0-12.0)
[2021-01-11] MEDS: ALBUMIN HUMAN 25% 50 ML in EMPTY BAG 1 BAG IVPB SCH ×4 (13:53→14:44)
[2021-01-11 15:42] VITALS: BP 121/59; PULSE 72; RESP 16
--- NOTE | 2021-01-11 15:51 | US ---
Ultrasound-guided paracentesis. DATE OF EXAM: 01/11/2021 CLINICAL HISTORY: Ascites The procedure was discussed with the patient. The risks, complications, benefits, and alternatives we re discussed and any questions were answered. Informed consent was obtained. The patient was placed s upine on the ultrasound table and prepped and draped in the usual sterile fashion. All elements of maximal barrier technique were utilized. Under ultrasound guidance, access into the right lower quadrant was obtained, via the paracentesis catheter system and direct ultrasound guidanc e. Approximately 6.3 liters of straw-colored fluid was removed. The patient was stable throughout the pr ocedure and remained stable upon discharge from Department of Radiology. IMPRESSION: Successful paracentesis under ultrasound guidance.
== END ==
LOC: RADPROMAIN 12:13
PROVIDERS: ATTEND Internal Medicine Gastroenterology
DX: R18.8 Other ascites (principal)
CPT/HCPCS: 82565; 82947; 85049; 85610; 36415; 49083; P9047

== ENCOUNTER → 2021-01-14 | Outpatient (CLI) | payer MEDICARE ==
[2021-01-14 19:12] LABS: INR 1.12 (0.90-1.11); Prothrombin Time 12.1 sec (9.9-11.9)
[2021-01-14 20:40] LABS: HGB 10.2 g/dL (12.0-15.0); MCH 26.5 pg (27.0-32.0); MCV 88.3 fL (80.0-97.0); Mean Platelet Volume 10.8 fL (9.5-12.2); Platelet Count 288 X 10*3/uL (140-440); RBC 3.85 X 10*6/uL (4.10-5.20); RDW 20.7 % (11.5-14.5); WBC 6.95 X 10*3/uL (4.50-10.00)
[2021-01-14 22:28] LABS: ALT 26 U/L (8-44); AST 40 U/L (13-35); Albumin/Globulin Ratio 2.18 (1.60-3.17); Alkaline Phosphatase 120 U/L (41-126); Bilirubin, Conjugated <0.20 mg/dL (0.20-0.40); Globulin 1.7 g/dL (1.6-3.3); Total Bilirubin 0.3 mg/dL (0.3-1.2); Total Protein 5.4 g/dL (6.2-8.2)
== END | disposition home or self-care (01) ==
LOC: LABWHC1 11:57
PROVIDERS: ATTEND Physician Assistant
DX: K74.60 Unspecified cirrhosis of liver (principal)
CPT/HCPCS: 36415; 80076; 82105; 85027; 85610

== ENCOUNTER 2021-01-18 12:16 | Day surgery (SDC) | payer MEDICARE ==
[2021-01-18 12:51] VITALS: TEMP 97.8
[2021-01-18] MEDS: ALBUMIN HUMAN 25% 50 ML in EMPTY BAG 1 BAG IVPB SCH ×4 (13:46→14:54)
[2021-01-18 15:59] VITALS: BP 116/58; PULSE 76; RESP 16
--- NOTE | 2021-01-18 16:17 | US ---
EXAMINATION TYPE: US paracentesis abd w/image DATE OF EXAM: 01/18/2021 COMPARISON: NONE HISTORY: Ascites. PROCEDURE: Maximal barrier technique was utilized. The skin overlying a suitable pocket of fluid was localized with ultrasound and the overlying skin was prepped and draped. Ultrasound was utilized with sterile technique. Lidocaine was used for local anesthesia and a skin saurabh made with a scalpel. Catheter was advanced under direct ultrasound guidance into a suitable pocket of fluid and approximately 7.2 liter s of serous fluid were removed. Catheter was withdrawn and hemostasis achieved. There is no immedia te complication; the patient is discharged in stable condition. IMPRESSION: STATUS POST ULTRASOUND GUIDED PARACENTESIS FOR PALLIATION OF ASCITES. THIS PROCEDURE WA S PERFORMED BY THE UNDERSIGNED.
== END 2021-01-18 15:50 | disposition home or self-care (01) ==
LOC: RADPROMAIN 12:16
PROVIDERS: ATTEND Internal Medicine Gastroenterology
DX: R18.8 Other ascites (principal)
CPT/HCPCS: 82565; 82947; 49083; P9047

== ENCOUNTER 2021-01-24 06:34 | Day surgery (SDC) | payer MEDICARE ==
[2021-01-22 10:06] VITALS: BMI 27.3
[~2021-01-24 06:34] MED LIST changes: +LACTATED RINGERS 1,000 ML IV SCH; +LIDOCAINE 1% (10MG/ML) FOR IV START INTRADERMA PRN; -SODIUM CHLORIDE 0.9% 500 ML 500 ML IV SCH
[2021-01-24 07:10] VITALS: RESP 18; TEMP 96.9
[2021-01-24 07:14] LABS: Glucose,Whole Blood 96 mg/dL (75-99)
[2021-01-24] MEDS ORDERED: KETOROLAC 15 MG/ML 1 ML VIAL ONE (07:47)
[2021-01-24] MEDS ORDERED: PROPOFOL 10 MG/ML 20 ML VIAL IV ONE (07:47)
--- NOTE | 2021-01-24 08:38 | P.PCN ---
Date of Procedure: 01/24/21 Description of Procedure: Brief history: Patient is a pleasant 80-year-old female presenting for outpatient esophagogastroduodenoscopy and colonoscopy for evaluation of decompensated cirrhosis, history of esophageal varices and screening for malignant neoplasm colon. Previously patient has had esophageal variceal ligation in 06/15 and 08/16. Bowel movements are generally daily normal in color and caliber. Procedure performed: Esophagogastroduodenoscopy Colonoscopy aborted/incomplete with polypectomy secondary to sigmoid diverticulosis with associated stricture Estimated blood loss: Minimal. Preoperative diagnosis: Anesthesia: MAC Procedure: After informed consent was obtained from the patient was brought into the endoscopy unit and IV sedation was administered by anesthesia under continuous monitoring. Initially upper endoscopy was done. The Olympus GF 190 video endoscope was inserted into the mouth and esophagus intubated without any difficulty and was gradually advanced into the stomach and duodenum and carefully examined. The bulb and second part of the duodenum appeared normal. The scope was then withdrawn into the stomach adequately insufflated with air and upon careful examination the antrum and body, cardia and fundus appeared normal, except for moderate erythema and edema in the antrum suggestive of moderate gastritis. The scope was then withdrawn into the esophagus. The GE junction was located at 38 cm to the incisors. It appeared regular with no erythema erosions or ulcerations. Rest of the esophagus appeared normal, with small distal esophageal varices noticed. Patient tolerated the procedure well. At this time the patient continued to remain sedation. Initial digital rectal examination was normal. Olympus CF 190 video colonoscope was then inserted into the rectum and gradually advanced to the sigmoid colon where a stricture in association with diverticula was noted without any difficulty. Multiple attempts at traversing the stricture were unsuccessful including switching the videocolonoscope for a Olympus pediatric colonoscope. A 6 mm rectal polyp was removed with cold snare polypectomy. At this time the procedure was aborted. Retroflexion was performed in the rectum and no lesions were noted. Patient tolerated the procedure well. Impression: 1. Moderate gastritis. Small varices noted in the distal esophagus with evidence of prior esophageal variceal banding. 2. Rectal polyp removed with cold snare polypectomy. Sigmoid diverticulosis with associated stricture unable to be traversed with Olympus 190 video colonoscope and pediatric colonoscope. Colonoscopy aborted/incomplete colonoscopy. Recommendations: Findings of this examination were discussed with the patient as well as her son. Okay to resume diet. Okay to resume medications. Await pathology from polypectomy. Recommend patient had x-ray barium enema or CT colonoscopy if further screening is desired.
[2021-01-24 08:57] VITALS: BP 133/76; PULSE 79
== END 2021-01-24 09:35 | disposition home or self-care (01) ==
LOC: ORWHC2ENDO 06:34
PROVIDERS: ATTEND Internal Medicine
DX: Z12.11 Encounter for screening for malignant neoplasm of colon (principal); K56.699 Other intestinal obstruction unspecified as to partial versus complete obstruction; I85.00 Esophageal varices without bleeding; K62.1 Rectal polyp; K57.30 Diverticulosis of large intestine without perforation or abscess without bleeding; K29.70 Gastritis, unspecified, without bleeding; Z87.891 Personal history of nicotine dependence; M79.7 Fibromyalgia; I48.91 Unspecified atrial fibrillation; I10 Essential (primary) hypertension; E78.5 Hyperlipidemia, unspecified; Z86.711 Personal history of pulmonary embolism; Z79.84 Long term (current) use of oral hypoglycemic drugs; Z79.890 Hormone replacement therapy; Z79.899 Other long term (current) drug therapy
CPT/HCPCS: 45338; 43235; 88305; J1885; J2704; 45385

== ENCOUNTER 2021-01-25 12:18 | Day surgery (SDC) | payer MEDICARE ==
[2021-01-25 12:43] VITALS: RESP 16; TEMP 97.7
[2021-01-25 15:23] VITALS: BP 106/58; PULSE 77
== END 2021-01-25 15:35 | disposition home or self-care (01) ==
LOC: RADPROMAIN 12:18
PROVIDERS: ATTEND Internal Medicine Gastroenterology
DX: R18.8 Other ascites (principal)
CPT/HCPCS: 82565; 82947; 85049; 85610; 49083; P9047

== ENCOUNTER 2021-02-01 12:13 | Day surgery (SDC) | payer MEDICARE ==
[2021-02-01 12:58] VITALS: RESP 18; TEMP 98.2
[2021-02-01 13:36] LABS: Mean Platelet Volume 8.2; Platelet Count 243 k/uL (150-450)
[2021-02-01 13:43] LABS: INR 1.2 (<1.2); Prothrombin Time 12.3 sec (9.0-12.0)
[2021-02-01] MEDS: ALBUMIN HUMAN 25% 50 ML in EMPTY BAG 1 BAG IVPB SCH ×4 (14:25→15:19)
[2021-02-01 17:17] VITALS: BP 133/73; PULSE 77
--- NOTE | 2021-02-02 10:29 | US ---
EXAMINATION TYPE: US paracentesis abd w/image DATE OF EXAM: 02/01/2021 COMPARISON: NONE HISTORY: Ascites. PROCEDURE: Maximal barrier technique was utilized. The skin overlying a suitable pocket of fluid was localized with ultrasound and the overlying skin was prepped and draped. Ultrasound was utilized with sterile technique. Lidocaine was used for local anesthesia and a skin saurabh made with a scalpel. Catheter was advanced under direct ultrasound guidance into a suitable pocket of fluid and approximately 7.4 liter s of serous fluid were removed. Catheter was withdrawn and hemostasis achieved. There is no immedia te complication; the patient is discharged in stable condition. IMPRESSION: STATUS POST ULTRASOUND GUIDED PARACENTESIS FOR PALLIATION OF ASCITES. THIS PROCEDURE WA S PERFORMED BY THE UNDERSIGNED.
== END 2021-02-01 14:30 | disposition home or self-care (01) ==
LOC: RADPROMAIN 12:13
PROVIDERS: ATTEND Nurse Practitioner
DX: R18.8 Other ascites (principal)
CPT/HCPCS: 82565; 82947; 85049; 85610; 36415; 49083; P9047

== ENCOUNTER 2021-02-08 11:10 | Day surgery (SDC) | payer MEDICARE ==
[2021-02-08 11:52] LABS: Glucose,Whole Blood 112 mg/dL (75-99)
[2021-02-08 12:13] LABS: Mean Platelet Volume 7.8; Platelet Count 290 k/uL (150-450)
[2021-02-08 12:30] LABS: INR 1.2 (<1.2); Prothrombin Time 12.5 sec (9.0-12.0)
[2021-02-08 12:36] VITALS: RESP 16; TEMP 97.7
[2021-02-08] MEDS: ALBUMIN HUMAN 25% 50 ML in EMPTY BAG 1 BAG IVPB SCH ×4 (13:52→14:42)
[2021-02-08 15:10] VITALS: BP 128/62; PULSE 73
--- NOTE | 2021-02-08 16:39 | US ---
EXAMINATION TYPE: US paracentesis abd w/image DATE OF EXAM: 02/08/2021 CLINICAL HISTORY: Cirrhosis of liver COMPARISON: 02/01/2021 SERVICE STATION HELPER: Dr. Mireya Gonzalez PROCEDURE: Preprocedure preliminary ultrasound imaging demonstrates large volume ascites. The procedure was discussed with the patient. The risks, complications, benefits, and alternatives we re discussed and any questions were answered. Informed consent was obtained. The patient was placed s upine on the ultrasound table and prepped and draped in the usual sterile fashion. All elements of maximal barrier technique were utilized. Under ultrasound guidance, access into the right lower quadrant was obtained with a 5 Upper [place] one-step centesis catheter. Approximately 9 liters of clear serous fluid was removed. Catheter was removed and sterile bandage wa s applied. The patient was stable throughout the procedure and remained stable upon discharge from [facility]. IMPRESSION: Successful ultrasound-guided paracentesis, with removal of 9 liters of clear serous fluid.
== END 2021-02-08 15:15 | disposition home or self-care (01) ==
LOC: RADPROMAIN 11:10
PROVIDERS: ATTEND Nurse Practitioner
DX: R18.8 Other ascites (principal); K74.60 Unspecified cirrhosis of liver
CPT/HCPCS: 36410; 76937; 82565; 82947; 85049; 85610; 36415; 49083; C1751; P9047

== ENCOUNTER 2021-02-15 12:18 | Day surgery (SDC) | payer MEDICARE ==
[2021-02-15 13:10] LABS: Mean Platelet Volume 8.2; Platelet Count 265 k/uL (150-450)
[2021-02-15 13:21] VITALS: TEMP 98.3
[2021-02-15 13:22] LABS: INR 1.2 (<1.2); Prothrombin Time 12.8 sec (9.0-12.0)
[2021-02-15] MEDS: ALBUMIN HUMAN 25% 50 ML in EMPTY BAG 1 BAG IVPB SCH ×4 (14:26→15:10)
[2021-02-15 16:09] VITALS: BP 126/70; PULSE 79; RESP 16
--- NOTE | 2021-02-24 16:03 | US ---
EXAMINATION TYPE: US paracentesis abd w/image DATE OF EXAM: 02/17/2021 COMPARISON: NONE HISTORY: Ascites. PROCEDURE: Maximal barrier technique was utilized. The skin overlying a suitable pocket of fluid was localized with ultrasound and the overlying skin was prepped and draped. Ultrasound was utilized with sterile technique. Lidocaine was used for local anesthesia and a skin saurabh made with a scalpel. Catheter was advanced under direct ultrasound guidance into a suitable pocket of fluid and approximately 8.8 liter s of serous fluid were removed. Catheter was withdrawn and hemostasis achieved. There is no immedia te complication; the patient is discharged in stable condition. IMPRESSION: STATUS POST ULTRASOUND GUIDED PARACENTESIS FOR PALLIATION OF ASCITES. THIS PROCEDURE WA S PERFORMED BY THE UNDERSIGNED.
== END 2021-02-15 16:00 | disposition home or self-care (01) ==
LOC: RADPROMAIN 12:18
PROVIDERS: ATTEND Nurse Practitioner
DX: R18.8 Other ascites (principal); K74.60 Unspecified cirrhosis of liver; Z91.030 Bee allergy status; Z91.038 Other insect allergy status; Z88.0 Allergy status to penicillin; Z91.013 Allergy to seafood; Z88.2 Allergy status to sulfonamides; Z91.09 Other allergy status, other than to drugs and biological substances
CPT/HCPCS: 49083; 82565; 82947; 85049; 85610; 36415; P9047

== ENCOUNTER → 2021-02-18 | Outpatient (CLI) | payer MEDICARE ==
[2021-02-18 15:27] LABS: African American GFR (CKD) 62.1 (60.0-200.0); Albumin 3.6 g/dL (3.80-4.90); Anion Gap 8.1 mmol/L (4.00-12.00); Calcium 8.6 mg/dL (8.7-10.3); Carbon Dioxide 23.9 mmol/L (21.6-31.8); Non-African American GFR(CKD) 53.5 (60.0-200.0)
== END | disposition home or self-care (01) ==
LOC: LABWHC1 09:28
PROVIDERS: ATTEND Nurse Practitioner Family
DX: E87.1 Hypo-osmolality and hyponatremia (principal)
CPT/HCPCS: 36415; 80048; 82040; 83930; 83935

== ENCOUNTER 2021-02-22 12:09 | Day surgery (SDC) | payer MEDICARE ==
[2021-02-22 12:20] VITALS: RESP 16; TEMP 97.9
[2021-02-22 12:47] LABS: Mean Platelet Volume 8.1; Platelet Count 251 k/uL (150-450)
[2021-02-22 13:03] LABS: INR 1.2 (<1.2); Prothrombin Time 12.2 sec (9.0-12.0)
[2021-02-22] MEDS: ALBUMIN HUMAN 25% 50 ML in EMPTY BAG 1 BAG IVPB SCH ×4 (13:40→14:28)
[2021-02-22 14:50] VITALS: BP 129/66; PULSE 72
--- NOTE | 2021-02-22 15:46 | US ---
Ultrasound-guided paracentesis. DATE OF EXAM: 02/22/2021 CLINICAL HISTORY: Ascites The procedure was discussed with the patient. The risks, complications, benefits, and alternatives we re discussed and any questions were answered. Informed consent was obtained. The patient was placed s upine on the ultrasound table and prepped and draped in the usual sterile fashion. All elements of maximal barrier technique were utilized. Under ultrasound guidance, access into the right lower quadrant was obtained, via the paracentesis catheter system and direct ultrasound guidanc e. Approximately 8.2 liters of straw-colored fluid was removed. The patient was stable throughout the pr ocedure and remained stable upon discharge from Department of Radiology. IMPRESSION: Successful paracentesis under ultrasound guidance.
== END 2021-02-22 15:05 | disposition home or self-care (01) ==
LOC: RADPROMAIN 12:09
PROVIDERS: ATTEND Internal Medicine Gastroenterology
DX: K70.31 Alcoholic cirrhosis of liver with ascites (principal); Z88.1 Allergy status to other antibiotic agents; Z91.038 Other insect allergy status; Z88.0 Allergy status to penicillin; Z91.013 Allergy to seafood; Z88.2 Allergy status to sulfonamides; Z88.8 Allergy status to other drugs, medicaments and biological substances; Z91.048 Other nonmedicinal substance allergy status; Z91.09 Other allergy status, other than to drugs and biological substances
CPT/HCPCS: 82565; 82947; 85049; 85610; 36415; 49083; P9047

== ENCOUNTER 2021-03-01 12:07 | Day surgery (SDC) | payer MEDICARE ==
[2021-03-01 12:31] VITALS: RESP 16; TEMP 97.8
[2021-03-01 12:52] LABS: Mean Platelet Volume 8.2; Platelet Count 234 k/uL (150-450)
[2021-03-01 13:02] LABS: INR 1.2 (<1.2); Prothrombin Time 12.4 sec (9.0-12.0)
[2021-03-01] MEDS: ALBUMIN HUMAN 25% 50 ML in EMPTY BAG 1 BAG IVPB SCH ×4 (13:50→15:00)
[2021-03-01 14:50] VITALS: BP 123/65; PULSE 62
--- NOTE | 2021-03-01 15:56 | US ---
Ultrasound-guided paracentesis. DATE OF EXAM: 03/01/2021 CLINICAL HISTORY: Ascites The procedure was discussed with the patient. The risks, complications, benefits, and alternatives we re discussed and any questions were answered. Informed consent was obtained. The patient was placed s upine on the ultrasound table and prepped and draped in the usual sterile fashion. All elements of maximal barrier technique were utilized. Under ultrasound guidance, access into the right lower quadrant was obtained, via the paracentesis catheter system and direct ultrasound guidanc e. Approximately 8.2 liters of straw-colored fluid was removed. The patient was stable throughout the pr ocedure and remained stable upon discharge from Department of Radiology. IMPRESSION: Successful paracentesis under ultrasound guidance.
== END 2021-03-01 15:17 | disposition home or self-care (01) ==
LOC: RADPROMAIN 12:07
PROVIDERS: ATTEND Internal Medicine Gastroenterology
DX: K70.31 Alcoholic cirrhosis of liver with ascites (principal)
CPT/HCPCS: 82565; 82947; 85049; 85610; 36415; 49083; P9047

== ENCOUNTER 2021-03-08 10:55 | Day surgery (SDC) | payer MEDICARE ==
[2021-03-08 11:18] VITALS: RESP 16
[2021-03-08 11:56] LABS: Basophils % (A) 0 %; Eosinophils # (A) 0.2 k/uL (0-0.7); Eosinophils % (A) 2 %; HGB 11.6 gm/dL (11.4-16.0); Lymphocytes # (A) 0.6 k/uL (1.0-4.8); Lymphocytes % (A) 9 %; MCH 28.6 pg (25.0-35.0); MCV 86.8 fL (80.0-100.0); Mean Platelet Volume 8.7; Monocytes # (A) 0.4 k/uL (0-1.0); Monocytes % (A) 7 %; Neutrophils # (A) 5.4 k/uL (1.3-7.7); Neutrophils % (A) 80 %; Platelet Count 231 k/uL (150-450); RBC 4.03 m/uL (3.80-5.40); RDW 15.9 % (11.5-15.5); WBC 6.7 k/uL (3.8-10.6)
[2021-03-08 12:32] LABS: INR 1.2 (<1.2); Prothrombin Time 12.6 sec (9.0-12.0)
[2021-03-08 12:38] VITALS: TEMP 98.3
[2021-03-08] MEDS: ALBUMIN HUMAN 25% 50 ML in EMPTY BAG 1 BAG IVPB SCH ×4 (13:40→14:22)
[2021-03-08 14:19] VITALS: BP 133/63; PULSE 69
--- NOTE | 2021-03-08 16:03 | US ---
Ultrasound-guided paracentesis. DATE OF EXAM: 03/08/2021 CLINICAL HISTORY: Ascites The procedure was discussed with the patient. The risks, complications, benefits, and alternatives we re discussed and any questions were answered. Informed consent was obtained. The patient was placed s upine on the ultrasound table and prepped and draped in the usual sterile fashion. All elements of maximal barrier technique were utilized. Under ultrasound guidance, access into the left lower quadrant was obtained, via the paracentesis catheter system and direct ultrasound guidance . Approximately 8 liters of straw-colored fluid was removed. The patient was stable throughout the proc edure and remained stable upon discharge from Department of Radiology. IMPRESSION: Successful paracentesis under ultrasound guidance.
== END 2021-03-08 14:55 | disposition home or self-care (01) ==
LOC: RADPROMAIN 10:55
PROVIDERS: ATTEND Internal Medicine Gastroenterology
DX: R18.8 Other ascites (principal)
CPT/HCPCS: 49083; 36410; 76937; 82565; 82947; 85025; 85610; 36415; C1751; P9047

== ENCOUNTER 2021-03-15 12:07 | Day surgery (SDC) | payer MEDICARE ==
[2021-03-15 12:49] VITALS: TEMP 98.4
[2021-03-15 13:10] LABS: Mean Platelet Volume 8.4; Platelet Count 256 k/uL (150-450)
[2021-03-15 13:15] LABS: INR 1.2 (<1.2); Prothrombin Time 12.9 sec (9.0-12.0)
[2021-03-15] MEDS: ALBUMIN HUMAN 25% 50 ML in EMPTY BAG 1 BAG IVPB SCH ×4 (13:50→14:36)
[2021-03-15 15:15] VITALS: BP 120/61; PULSE 71; RESP 16
--- NOTE | 2021-03-15 16:05 | US ---
Ultrasound-guided paracentesis. DATE OF EXAM: 03/15/2021 CLINICAL HISTORY: Ascites The procedure was discussed with the patient. The risks, complications, benefits, and alternatives we re discussed and any questions were answered. Informed consent was obtained. The patient was placed s upine on the ultrasound table and prepped and draped in the usual sterile fashion. All elements of maximal barrier technique were utilized. Under ultrasound guidance, access into the right lower quadrant was obtained, via the paracentesis catheter system and direct ultrasound guidanc e. Approximately 8 liters of straw-colored fluid was removed. The patient was stable throughout the proc edure and remained stable upon discharge from Department of Radiology. IMPRESSION: Successful paracentesis under ultrasound guidance.
== END 2021-03-15 15:28 | disposition home or self-care (01) ==
LOC: RADPROMAIN 12:07
PROVIDERS: ATTEND Internal Medicine Gastroenterology
DX: R18.8 Other ascites (principal)
CPT/HCPCS: 49083; 82565; 82947; 85049; 85610; P9047

== ENCOUNTER 2021-03-22 12:10 | Day surgery (SDC) | payer MEDICARE ==
[2021-03-22 12:45] VITALS: TEMP 98
[2021-03-22 13:38] LABS: Mean Platelet Volume 8.4; Platelet Count 225 k/uL (150-450)
[2021-03-22 13:43] LABS: INR 1.2 (<1.2); Prothrombin Time 12.4 sec (9.0-12.0)
[2021-03-22] MEDS: ALBUMIN HUMAN 25% 50 ML in EMPTY BAG 1 BAG IVPB SCH ×4 (14:15→15:00)
[2021-03-22 15:00] VITALS: RESP 16
--- NOTE | 2021-03-22 15:11 | US ---
Ultrasound-guided paracentesis. DATE OF EXAM: 03/22/2021 CLINICAL HISTORY: Ascites The procedure was discussed with the patient. The risks, complications, benefits, and alternatives we re discussed and any questions were answered. Informed consent was obtained. The patient was placed s upine on the ultrasound table and prepped and draped in the usual sterile fashion. All elements of maximal barrier technique were utilized. Under ultrasound guidance, access into the right lower quadrant was obtained, via the paracentesis catheter system and direct ultrasound guidanc e. Approximately 7.9 liters of straw-colored fluid was removed. The patient was stable throughout the pr ocedure and remained stable upon discharge from Department of Radiology. IMPRESSION: Successful paracentesis under ultrasound guidance.
[2021-03-22 15:18] VITALS: BP 104/54; PULSE 68
== END 2021-03-22 15:28 | disposition home or self-care (01) ==
LOC: RADPROMAIN 12:10
PROVIDERS: ATTEND Internal Medicine Gastroenterology
DX: R18.8 Other ascites (principal)
CPT/HCPCS: 49083; 82565; 82947; 85049; 85610; 36415; P9047

== ENCOUNTER 2021-03-29 12:05 | Day surgery (SDC) | payer MEDICARE ==
[2021-03-29 12:43] LABS: Mean Platelet Volume 7.7; Platelet Count 309 k/uL (150-450)
[2021-03-29 12:59] LABS: INR 1.2 (<1.2)
[2021-03-29 13:11] VITALS: TEMP 98.6
[2021-03-29] MEDS: ALBUMIN HUMAN 25% 50 ML in EMPTY BAG 1 BAG IVPB SCH ×4 (14:18→14:58)
[2021-03-29 15:50] VITALS: RESP 16
[2021-03-29 15:51] VITALS: BP 116/78; PULSE 76
--- NOTE | 2021-03-29 16:13 | US ---
EXAMINATION TYPE: US paracentesis abd w/image DATE OF EXAM: 03/29/2021 COMPARISON: NONE HISTORY: Ascites. PROCEDURE: Maximal barrier technique was utilized. The skin overlying a suitable pocket of fluid was localized with ultrasound and the overlying skin was prepped and draped. Ultrasound was utilized with sterile technique. Lidocaine was used for local anesthesia and a skin saurabh made with a scalpel. Catheter was advanced under direct ultrasound guidance into a suitable pocket of fluid and approximately 8.3 liter s of serous fluid were removed. Catheter was withdrawn and hemostasis achieved. There is no immedia te complication; the patient is discharged in stable condition. IMPRESSION: STATUS POST ULTRASOUND GUIDED PARACENTESIS FOR PALLIATION OF ASCITES. THIS PROCEDURE WA S PERFORMED BY THE UNDERSIGNED.
== END 2021-03-29 15:40 | disposition home or self-care (01) ==
LOC: RADPROMAIN 12:05
PROVIDERS: ATTEND Internal Medicine Gastroenterology
DX: K70.31 Alcoholic cirrhosis of liver with ascites (principal)
CPT/HCPCS: 82565; 82947; 85049; 85610; 36415; 49083; P9047

== ENCOUNTER 2021-04-05 12:14 | Day surgery (SDC) | payer MEDICARE ==
[2021-04-05 13:39] LABS: Platelet Count 247 k/uL (150-450)
[2021-04-05 13:40] LABS: INR 1.2 (<1.2); Prothrombin Time 12.6 sec (9.0-12.0)
[2021-04-05 13:47] VITALS: RESP 16; TEMP 98.3
[2021-04-05] MEDS: ALBUMIN HUMAN 25% 50 ML in EMPTY BAG 1 BAG IVPB SCH ×4 (14:02→14:52)
[2021-04-05 15:47] VITALS: BP 121/65; PULSE 78
--- NOTE | 2021-04-05 15:53 | US ---
Ultrasound-guided paracentesis. DATE OF EXAM: 04/05/2021 CLINICAL HISTORY: Ascites The procedure was discussed with the patient. The risks, complications, benefits, and alternatives we re discussed and any questions were answered. Informed consent was obtained. The patient was placed s upine on the ultrasound table and prepped and draped in the usual sterile fashion. All elements of maximal barrier technique were utilized. Under ultrasound guidance, access into the right lower quadrant was obtained, via the paracentesis catheter system and direct ultrasound guidanc e. Approximately 7.9 liters of straw-colored fluid was removed. The patient was stable throughout the pr ocedure and remained stable upon discharge from Department of Radiology. IMPRESSION: Successful paracentesis under ultrasound guidance.
== END 2021-04-05 15:30 | disposition home or self-care (01) ==
LOC: RADPROMAIN 12:14
PROVIDERS: ATTEND Internal Medicine Gastroenterology
DX: R18.8 Other ascites (principal)
CPT/HCPCS: 49083; 82565; 82947; 85049; 85610; P9047

== ENCOUNTER 2021-04-12 10:44 | Day surgery (SDC) | payer MEDICARE ==
[2021-04-12 11:06] VITALS: RESP 16
[2021-04-12 11:46] LABS: Mean Platelet Volume 8.2; Platelet Count 274 k/uL (150-450)
[2021-04-12 12:02] LABS: INR 1.2 (<1.2)
[2021-04-12 12:30] VITALS: TEMP 97.5
[2021-04-12] MEDS: ALBUMIN HUMAN 25% 50 ML in EMPTY BAG 1 BAG IVPB SCH ×4 (13:29→14:17)
[2021-04-12 14:36] VITALS: BP 119/61; PULSE 75
--- NOTE | 2021-04-12 15:21 | US ---
EXAMINATION TYPE: US paracentesis abd w/image DATE OF EXAM: 04/12/2021 COMPARISON: NONE HISTORY: Ascites. PROCEDURE: Maximal barrier technique was utilized. The skin overlying a suitable pocket of fluid was localized with ultrasound and the overlying skin was prepped and draped. Ultrasound was utilized with sterile technique. Lidocaine was used for local anesthesia and a skin saurabh made with a scalpel. Catheter was advanced under direct ultrasound guidance into a suitable pocket of fluid and approximately 7.9 liter s of serous fluid were removed. Catheter was withdrawn and hemostasis achieved. There is no immedia te complication; the patient is discharged in stable condition. IMPRESSION: STATUS POST ULTRASOUND GUIDED PARACENTESIS FOR PALLIATION OF ASCITES. THIS PROCEDURE WA S PERFORMED BY THE UNDERSIGNED.
== END 2021-04-12 14:45 | disposition home or self-care (01) ==
LOC: RADPROMAIN 10:44
PROVIDERS: ATTEND Internal Medicine Gastroenterology
DX: R18.8 Other ascites (principal)
CPT/HCPCS: 49083; 36410; 76937; 82565; 82947; 85049; 85610; 36415; C1751; P9047

== ENCOUNTER 2021-04-19 12:11 | Day surgery (SDC) | payer MEDICARE ==
[2021-04-19 12:41] VITALS: TEMP 97.5
[2021-04-19 13:19] LABS: INR 1.2 (<1.2); Prothrombin Time 12.2 sec (9.0-12.0)
[2021-04-19 13:21] LABS: Albumin 2.9 g/dL (3.5-5.0); Basophils % (A) 0 %; Bilirubin, Delta 0.1 mg/dL (0.0-0.2); Bilirubin,Unconjugated 0.2 mg/dL (0.0-1.1); Eosinophils # (A) 0.1 k/uL (0-0.7); Eosinophils % (A) 3 %; HGB 11.3 gm/dL (11.4-16.0); Lymphocytes # (A) 0.5 k/uL (1.0-4.8); Lymphocytes % (A) 9 %; MCH 28.6 pg (25.0-35.0); MCHC 32.4 g/dL (31.0-37.0); MCV 88.4 fL (80.0-100.0); Mean Platelet Volume 8.4; Monocytes # (A) 0.4 k/uL (0-1.0); Monocytes % (A) 7 %; Neutrophils # (A) 4.5 k/uL (1.3-7.7); Neutrophils % (A) 80 %; Platelet Count 227 k/uL (150-450); RBC 3.96 m/uL (3.80-5.40); RDW 15.3 % (11.5-15.5); Total Bilirubin 0.3 mg/dL (0.2-1.3); Total Protein 5.2 g/dL (6.3-8.2); WBC 5.7 k/uL (3.8-10.6)
[2021-04-19] MEDS: ALBUMIN HUMAN 25% 50 ML in EMPTY BAG 1 BAG IVPB SCH ×4 (13:47→15:26)
[2021-04-19 15:21] VITALS: BP 119/67; PULSE 72; RESP 14
--- NOTE | 2021-04-19 15:50 | US ---
EXAMINATION TYPE: US paracentesis abd w/image DATE OF EXAM: 04/19/2021 COMPARISON: NONE HISTORY: Ascites. PROCEDURE: Maximal barrier technique was utilized. The skin overlying a suitable pocket of fluid was localized with ultrasound and the overlying skin was prepped and draped. Ultrasound was utilized with sterile technique. Lidocaine was used for local anesthesia and a skin saurabh made with a scalpel. Catheter was advanced under direct ultrasound guidance into a suitable pocket of fluid and approximately 7.5 liter s of serous fluid were removed. Catheter was withdrawn and hemostasis achieved. There is no immedia te complication; the patient is discharged in stable condition. IMPRESSION: STATUS POST ULTRASOUND GUIDED PARACENTESIS FOR PALLIATION OF ASCITES. THIS PROCEDURE WA S PERFORMED BY THE UNDERSIGNED.
== END 2021-04-19 15:21 | disposition home or self-care (01) ==
LOC: RADPROMAIN 12:11
PROVIDERS: ATTEND Internal Medicine Gastroenterology
DX: R18.8 Other ascites (principal); K74.60 Unspecified cirrhosis of liver; Z88.1 Allergy status to other antibiotic agents; Z91.030 Bee allergy status; Z91.038 Other insect allergy status; Z88.0 Allergy status to penicillin; Z91.013 Allergy to seafood; Z88.2 Allergy status to sulfonamides; Z88.8 Allergy status to other drugs, medicaments and biological substances; Z91.09 Other allergy status, other than to drugs and biological substances
CPT/HCPCS: 76937; 80076; 82565; 82947; 85025; 85610; 82105; 36415; 49083; C1751; P9047; 36410

== ENCOUNTER 2021-04-26 12:12 | Day surgery (SDC) | payer MEDICARE ==
[2021-04-26 12:28] VITALS: RESP 16; TEMP 98.2
[2021-04-26 12:47] LABS: Mean Platelet Volume 8.1; Platelet Count 233 k/uL (150-450)
[2021-04-26 12:52] LABS: INR 1.2 (<1.2); Prothrombin Time 12.8 sec (9.0-12.0)
[2021-04-26] MEDS: ALBUMIN HUMAN 25% 50 ML in EMPTY BAG 1 BAG IVPB SCH ×4 (13:45→14:51)
[2021-04-26 14:50] VITALS: BP 111/63; PULSE 70
--- NOTE | 2021-04-26 15:52 | US ---
EXAMINATION TYPE: US paracentesis abd w/image DATE OF EXAM: 04/26/2021 COMPARISON: NONE HISTORY: Ascites. PROCEDURE: Maximal barrier technique was utilized. The skin overlying a suitable pocket of fluid was localized with ultrasound and the overlying skin was prepped and draped. Ultrasound was utilized with sterile technique. Lidocaine was used for local anesthesia and a skin saurabh made with a scalpel. Catheter was advanced under direct ultrasound guidance into a suitable pocket of fluid and approximately 7.8 liter s of serous fluid were removed. Catheter was withdrawn and hemostasis achieved. There is no immedia te complication; the patient is discharged in stable condition. IMPRESSION: STATUS POST ULTRASOUND GUIDED PARACENTESIS FOR PALLIATION OF ASCITES. THIS PROCEDURE WA S PERFORMED BY THE UNDERSIGNED.
== END 2021-04-26 15:00 | disposition home or self-care (01) ==
LOC: RADPROMAIN 12:12
PROVIDERS: ATTEND Internal Medicine Gastroenterology
DX: R18.8 Other ascites (principal)
CPT/HCPCS: 49083; 82565; 82947; 85049; 85610; 36415; P9047

== ENCOUNTER → 2021-04-29 | Outpatient (CLI) | payer MEDICARE ==
[2021-04-29 21:14] LABS: African American GFR (CKD) 47.4 (60.0-200.0); Anion Gap 11.5 mmol/L (4.00-12.00); BUN/Creat Ratio 29.04 Ratio (12.00-20.00); Blood Urea Nitrogen 36.3 mg/dL (9.0-27.0); Calcium 8.8 mg/dL (8.7-10.3); Carbon Dioxide 21.1 mmol/L (21.6-31.8); Non-African American GFR(CKD) 40.9 (60.0-200.0); Potassium 5.5 mmol/L (3.5-5.5)
== END | disposition home or self-care (01) ==
LOC: LABWHC1 11:37
PROVIDERS: ATTEND Nurse Practitioner Acute Care
DX: E87.1 Hypo-osmolality and hyponatremia (principal)
CPT/HCPCS: 36415; 80048

== ENCOUNTER 2021-05-03 12:08 | Day surgery (SDC) | payer MEDICARE ==
[2021-05-03 12:51] VITALS: TEMP 98.4
[2021-05-03 12:52] LABS: Platelet Count 244 k/uL (150-450)
[2021-05-03 12:58] LABS: INR 1.2 (<1.2); Prothrombin Time 12.7 sec (9.0-12.0)
[2021-05-03] MEDS: ALBUMIN HUMAN 25% 50 ML in EMPTY BAG 1 BAG IVPB SCH ×4 (13:41→14:37)
[2021-05-03 15:29] VITALS: BP 126/64; PULSE 76; RESP 18
--- NOTE | 2021-05-03 16:14 | US ---
EXAMINATION TYPE: US paracentesis abd w/image DATE OF EXAM: 05/03/2021 COMPARISON: NONE HISTORY: Ascites. PROCEDURE: Maximal barrier technique was utilized. The skin overlying a suitable pocket of fluid was localized with ultrasound and the overlying skin was prepped and draped. Ultrasound was utilized with sterile technique. Lidocaine was used for local anesthesia and a skin saurabh made with a scalpel. Catheter was advanced under direct ultrasound guidance into a suitable pocket of fluid and approximately 7.8 liter s of serous fluid were removed. Catheter was withdrawn and hemostasis achieved. There is no immedia te complication; the patient is discharged in stable condition. IMPRESSION: STATUS POST ULTRASOUND GUIDED PARACENTESIS FOR PALLIATION OF ASCITES. THIS PROCEDURE WA S PERFORMED BY THE UNDERSIGNED.
== END 2021-05-03 15:28 | disposition home or self-care (01) ==
LOC: RADPROMAIN 12:08
PROVIDERS: ATTEND Internal Medicine Gastroenterology
DX: R18.8 Other ascites (principal)
CPT/HCPCS: 49083; 82565; 82947; 85049; 85610; 36415; P9047

== ENCOUNTER 2021-05-10 12:15 | Day surgery (SDC) | payer MEDICARE ==
[2021-05-10 12:55] LABS: Mean Platelet Volume 8.4; Platelet Count 240 k/uL (150-450)
[2021-05-10 12:58] VITALS: TEMP 98
[2021-05-10 13:15] LABS: INR 1.2 (<1.2); Prothrombin Time 12.4 sec (9.0-12.0)
[2021-05-10] MEDS: ALBUMIN HUMAN 25% 50 ML in EMPTY BAG 1 BAG IVPB SCH ×4 (13:17→14:44)
[2021-05-10 13:37] VITALS: RESP 16
--- NOTE | 2021-05-10 14:28 | US ---
Ultrasound-guided paracentesis. DATE OF EXAM: 05/10/2021 CLINICAL HISTORY: Ascites The procedure was discussed with the patient. The risks, complications, benefits, and alternatives we re discussed and any questions were answered. Informed consent was obtained. The patient was placed s upine on the ultrasound table and prepped and draped in the usual sterile fashion. All elements of maximal barrier technique were utilized. Under ultrasound guidance, access into the right lower quadrant was obtained, via the paracentesis catheter system and direct ultrasound guidanc e. Approximately 4.5 liters of straw-colored fluid was removed. The patient was stable throughout the pr ocedure and remained stable upon discharge from Department of Radiology. IMPRESSION: Successful paracentesis under ultrasound guidance.
[2021-05-10 14:33] VITALS: BP 121/68; PULSE 69
== END 2021-05-10 14:51 | disposition home or self-care (01) ==
LOC: RADPROMAIN 12:15
PROVIDERS: ATTEND Internal Medicine Gastroenterology
DX: K70.31 Alcoholic cirrhosis of liver with ascites (principal)
CPT/HCPCS: 82565; 82947; 85049; 85610; 49083; P9047

== ENCOUNTER 2021-05-17 12:08 | Day surgery (SDC) | payer MEDICARE ==
[2021-05-17 13:06] LABS: Mean Platelet Volume 8.1; Platelet Count 210 k/uL (150-450)
[2021-05-17 13:27] VITALS: RESP 18; TEMP 98.1
[2021-05-17 13:51] LABS: INR 1.2 (<1.2); Prothrombin Time 12.4 sec (9.0-12.0)
[2021-05-17] MEDS: ALBUMIN HUMAN 25% 50 ML in EMPTY BAG 1 BAG IVPB SCH ×4 (14:30→16:01)
[2021-05-17 15:59] VITALS: BP 115/70; PULSE 59
--- NOTE | 2021-05-27 08:32 | US ---
Ultrasound-guided paracentesis. DATE OF EXAM: 05/17/2021 CLINICAL HISTORY: Ascites The procedure was discussed with the patient. The risks, complications, benefits, and alternatives we re discussed and any questions were answered. Informed consent was obtained. The patient was placed s upine on the ultrasound table and prepped and draped in the usual sterile fashion. All elements of maximal barrier technique were utilized. Under ultrasound guidance, access into the right lower quadrant was obtained, via the paracentesis catheter system and direct ultrasound guidanc e. Approximately 6.1 liters of straw-colored fluid was removed. The patient was stable throughout the pr ocedure and remained stable upon discharge from Department of Radiology. IMPRESSION: Successful paracentesis under ultrasound guidance.
== END 2021-05-17 16:02 | disposition home or self-care (01) ==
LOC: RADPROMAIN 12:08
PROVIDERS: ATTEND Internal Medicine Gastroenterology
DX: K70.31 Alcoholic cirrhosis of liver with ascites (principal)
CPT/HCPCS: 82565; 82947; 85049; 85610; 49083; P9047; J1642

== ENCOUNTER 2021-05-24 12:18 | Day surgery (SDC) | payer MEDICARE ==
[2021-05-24 12:56] LABS: Mean Platelet Volume 8.3; Platelet Count 219 k/uL (150-450)
[2021-05-24 13:08] LABS: INR 1.1 (<1.2); Prothrombin Time 11.9 sec (9.0-12.0)
[2021-05-24] MEDS: ALBUMIN HUMAN 25% 50 ML in EMPTY BAG 1 BAG IVPB SCH ×4 (13:47→15:00)
[2021-05-24 14:12] VITALS: RESP 18
[2021-05-24 15:54] VITALS: BP 133/54; PULSE 78
--- NOTE | 2021-05-24 16:39 | US ---
EXAMINATION TYPE: US paracentesis abd w/image DATE OF EXAM: 05/24/2021 COMPARISON: NONE HISTORY: Ascites. PROCEDURE: Maximal barrier technique was utilized. The skin overlying a suitable pocket of fluid was localized with ultrasound and the overlying skin was prepped and draped. Ultrasound was utilized with sterile technique. Lidocaine was used for local anesthesia and a skin saurabh made with a scalpel. Catheter was advanced under direct ultrasound guidance into a suitable pocket of fluid and approximately 6.8 liter s of serous fluid were removed. Catheter was withdrawn and hemostasis achieved. There is no immedia te complication; the patient is discharged in stable condition. IMPRESSION: STATUS POST ULTRASOUND GUIDED PARACENTESIS FOR PALLIATION OF ASCITES. THIS PROCEDURE WA S PERFORMED BY THE UNDERSIGNED.
== END 2021-05-24 15:57 | disposition home or self-care (01) ==
LOC: RADPROMAIN 12:18
PROVIDERS: ATTEND Internal Medicine Gastroenterology
DX: R18.8 Other ascites (principal)
CPT/HCPCS: 49083; 82565; 85049; 85610; P9047; J1642

== ENCOUNTER 2021-05-31 12:08 | Day surgery (SDC) | payer MEDICARE ==
[2021-05-31 12:57] VITALS: TEMP 98
[2021-05-31 12:57] LABS: Mean Platelet Volume 7.9; Platelet Count 264 k/uL (150-450)
[2021-05-31 13:11] LABS: INR 1.3 (<1.2); Prothrombin Time 13.2 sec (9.0-12.0)
[2021-05-31] MEDS: ALBUMIN HUMAN 25% 50 ML in EMPTY BAG 1 BAG IVPB SCH ×4 (13:51→14:37)
[2021-05-31 15:35] VITALS: BP 124/69; PULSE 75; RESP 18
--- NOTE | 2021-05-31 16:45 | US ---
Ultrasound-guided paracentesis. DATE OF EXAM: 05/31/2021 CLINICAL HISTORY: Ascites The procedure was discussed with the patient. The risks, complications, benefits, and alternatives we re discussed and any questions were answered. Informed consent was obtained. The patient was placed s upine on the ultrasound table and prepped and draped in the usual sterile fashion. All elements of maximal barrier technique were utilized. Under ultrasound guidance, access into the right lower quadrant was obtained, via the paracentesis catheter system and direct ultrasound guidanc e. Approximately 8.4 liters of straw-colored fluid was removed. The patient was stable throughout the pr ocedure and remained stable upon discharge from Department of Radiology. IMPRESSION: Successful paracentesis under ultrasound guidance.
== END 2021-05-31 15:32 | disposition home or self-care (01) ==
LOC: RADPROMAIN 12:08
PROVIDERS: ATTEND Internal Medicine Gastroenterology
DX: R18.8 Other ascites (principal)
CPT/HCPCS: 49083; 82565; 82947; 85049; 85610; 36415; P9047; J1642

== ENCOUNTER 2021-06-07 12:10 | Day surgery (SDC) | payer MEDICARE ==
[2021-06-07 12:47] LABS: Mean Platelet Volume 8.3; Platelet Count 235 k/uL (150-450)
[2021-06-07 12:49] VITALS: RESP 16; TEMP 97.4
[2021-06-07 12:58] LABS: INR 1.2 (<1.2); Prothrombin Time 12.6 sec (9.0-12.0)
[2021-06-07] MEDS: ALBUMIN HUMAN 25% 50 ML in EMPTY BAG 1 BAG IVPB SCH ×4 (13:12→14:09)
[2021-06-07 15:04] VITALS: BP 144/76; PULSE 76
--- NOTE | 2021-06-10 15:14 | US ---
Ultrasound-guided paracentesis. DATE OF EXAM: 06/07/2021 CLINICAL HISTORY: Ascites The procedure was discussed with the patient. The risks, complications, benefits, and alternatives we re discussed and any questions were answered. Informed consent was obtained. The patient was placed s upine on the ultrasound table and prepped and draped in the usual sterile fashion. All elements of maximal barrier technique were utilized. Under ultrasound guidance, access into the right lower quadrant was obtained, via the paracentesis catheter system and direct ultrasound guidanc e. Approximately 7.2 liters of straw-colored fluid was removed. The patient was stable throughout the pr ocedure and remained stable upon discharge from Department of Radiology. IMPRESSION: Successful paracentesis under ultrasound guidance.
== END 2021-06-07 15:05 | disposition home or self-care (01) ==
LOC: RADPROMAIN 12:10
PROVIDERS: ATTEND Internal Medicine Gastroenterology
DX: K70.31 Alcoholic cirrhosis of liver with ascites (principal)
CPT/HCPCS: 82565; 82947; 85049; 85610; 49083; P9047; J1642

== ENCOUNTER 2021-06-14 12:12 | Day surgery (SDC) | payer MEDICARE ==
[2021-06-14 12:47] VITALS: TEMP 98.8
[2021-06-14 12:48] LABS: Mean Platelet Volume 8.5; Platelet Count 259 k/uL (150-450)
[2021-06-14 12:56] LABS: INR 1.2 (<1.2); Prothrombin Time 12.8 sec (9.0-12.0)
[2021-06-14] MEDS: ALBUMIN HUMAN 25% 50 ML in EMPTY BAG 1 BAG IVPB SCH ×4 (13:49→14:47)
[2021-06-14 14:50] VITALS: RESP 16
[2021-06-14 15:02] VITALS: BP 117/68; PULSE 78
--- NOTE | 2021-06-14 15:44 | US ---
EXAMINATION TYPE: US paracentesis abd w/image DATE OF EXAM: 06/14/2021 COMPARISON: NONE HISTORY: Ascites. PROCEDURE: Maximal barrier technique was utilized. The skin overlying a suitable pocket of fluid was localized with ultrasound and the overlying skin was prepped and draped. Ultrasound was utilized with sterile technique. Lidocaine was used for local anesthesia and a skin saurabh made with a scalpel. Catheter was advanced under direct ultrasound guidance into a suitable pocket of fluid and approximately 7.7 liter s of serous fluid were removed. Catheter was withdrawn and hemostasis achieved. There is no immedia te complication; the patient is discharged in stable condition. IMPRESSION: STATUS POST ULTRASOUND GUIDED PARACENTESIS FOR PALLIATION OF ASCITES. THIS PROCEDURE WA S PERFORMED BY THE UNDERSIGNED.
== END 2021-06-14 15:10 | disposition home or self-care (01) ==
LOC: RADPROMAIN 12:12
PROVIDERS: ATTEND Internal Medicine Gastroenterology
DX: R18.8 Other ascites (principal)
CPT/HCPCS: 82565; 82947; 85049; 85610; 36415; 49083; P9047; J1642

== ENCOUNTER 2021-06-21 08:33 | Day surgery (SDC) | payer MEDICARE ==
[2021-06-21 09:15] VITALS: TEMP 98.1
[2021-06-21 09:19] LABS: Mean Platelet Volume 8.5; Platelet Count 218 k/uL (150-450)
[2021-06-21 09:46] LABS: INR 1.2 (<1.2); Prothrombin Time 12.5 sec (9.0-12.0)
[2021-06-21] MEDS: ALBUMIN HUMAN 25% 50 ML in EMPTY BAG 1 BAG IVPB SCH ×4 (10:16→11:43)
[2021-06-21 12:09] VITALS: BP 116/70; PULSE 78; RESP 16
--- NOTE | 2021-06-21 12:23 | US ---
EXAMINATION TYPE: US paracentesis abd w/image DATE OF EXAM: 06/21/2021 COMPARISON: NONE HISTORY: Ascites. PROCEDURE: Maximal barrier technique was utilized. The skin overlying a suitable pocket of fluid was localized with ultrasound and the overlying skin was prepped and draped. Ultrasound was utilized with sterile technique. Lidocaine was used for local anesthesia and a skin saurabh made with a scalpel. Catheter was advanced under direct ultrasound guidance into a suitable pocket of fluid and approximately 6.8 liter s of serous fluid were removed. Catheter was withdrawn and hemostasis achieved. There is no immedia te complication; the patient is discharged in stable condition. IMPRESSION: STATUS POST ULTRASOUND GUIDED PARACENTESIS FOR PALLIATION OF ASCITES. THIS PROCEDURE WA S PERFORMED BY THE UNDERSIGNED.
== END 2021-06-21 12:05 | disposition home or self-care (01) ==
LOC: RADPROMAIN 08:33
PROVIDERS: ATTEND Internal Medicine Gastroenterology
DX: K70.31 Alcoholic cirrhosis of liver with ascites (principal)
CPT/HCPCS: 82565; 82947; 85049; 85610; 36415; 49083; P9047; J1642

== ENCOUNTER → 2021-06-24 | Outpatient (CLI) | payer MEDICARE ==
[2021-06-24 14:11] LABS: Appearance,Urine Clear (Clear); Bilirubin,Urine Negative (Negative); Blood,Urine Negative (Negative); Color,Urine Yellow; Glucose,Urine (UA) Negative (Negative); Ketones,Urine Negative (Negative); Leukocyte Esterase,Urine Negative (Negative); Nitrite,Urine Negative (Negative); Protein,Urine Negative (Negative); Specific Gravity,Urine 1.017 (1.001-1.035); Urobilinogen,Urine <2.0 mg/dL (<2.0)
[2021-06-24 17:58] LABS: HCT 35.4 % (37.2-46.3); HGB 11.1 g/dL (12.0-15.0); MCH 27.3 pg (27.0-32.0); MCHC 31.4 g/dL (32.0-37.0); MCV 87.2 fL (80.0-97.0); Mean Platelet Volume 12.2 fL (9.5-12.2); Platelet Count 226 X 10*3/uL (140-440); RBC 4.06 X 10*6/uL (4.10-5.20); RDW 14.6 % (11.5-14.5); WBC 5.51 X 10*3/uL (4.50-10.00)
[2021-06-24 20:58] LABS: % Iron Saturation 12.39 (12.00-45.00); African American GFR (CKD) 52.6 (60.0-200.0); Anion Gap 11.9 mmol/L (10.00-18.00); BUN/Creat Ratio 27.98 Ratio (12.00-20.00); Blood Urea Nitrogen 31.9 mg/dL (9.0-27.0); Calcium 8.6 mg/dL (8.7-10.3); Carbon Dioxide 20.2 mmol/L (20.0-27.5); Ferritin 78.2 ng/mL (10.0-291.0); Magnesium 2.1 mg/dL (1.5-2.4); Non-African American GFR(CKD) 45.4 (60.0-200.0); Phosphorus 4.1 mg/dL (2.4-5.1); Potassium 5.8 mmol/L (3.5-5.5)
[2021-06-24 22:26] LABS: Microalbumin Creatinine Ratio <30 mg/g Creat (0-30)
== END | disposition home or self-care (01) ==
LOC: LABWHC1 11:36
PROVIDERS: ATTEND Nurse Practitioner Acute Care
DX: E21.3 Hyperparathyroidism, unspecified (principal); E87.1 Hypo-osmolality and hyponatremia; E55.9 Vitamin D deficiency, unspecified; N39.0 Urinary tract infection, site not specified; D64.9 Anemia, unspecified
CPT/HCPCS: 36415; 80048; 81003; 82043; 82306; 82570; 82728; 83540; 83550; 83735; 83970; 84100; 85027

== ENCOUNTER 2021-06-28 08:37 | Day surgery (SDC) | payer MEDICARE ==
[2021-06-28 09:16] VITALS: RESP 16; TEMP 98.5
[2021-06-28 09:20] LABS: Mean Platelet Volume 8.6; Platelet Count 172 k/uL (150-450)
[2021-06-28] MEDS: ALBUMIN HUMAN 25% 50 ML in EMPTY BAG 1 BAG IVPB SCH ×4 (09:26→10:36)
[2021-06-28 09:54] LABS: INR 1.1 (<1.2)
[2021-06-28 11:06] VITALS: BP 126/71; PULSE 71
--- NOTE | 2021-06-28 12:08 | US ---
Ultrasound-guided paracentesis. DATE OF EXAM: 06/28/2021 CLINICAL HISTORY: Ascites The procedure was discussed with the patient. The risks, complications, benefits, and alternatives we re discussed and any questions were answered. Informed consent was obtained. The patient was placed s upine on the ultrasound table and prepped and draped in the usual sterile fashion. All elements of maximal barrier technique were utilized. Under ultrasound guidance, access into the left lower quadrant was obtained, via the paracentesis catheter system and direct ultrasound guidance . Approximately 4 liters of straw-colored fluid was removed. The patient was stable throughout the proc edure and remained stable upon discharge from Department of Radiology. IMPRESSION: Successful paracentesis under ultrasound guidance.
== END 2021-06-28 11:08 | disposition home or self-care (01) ==
LOC: RADPROMAIN 08:37
PROVIDERS: ATTEND Internal Medicine Gastroenterology
DX: R18.8 Other ascites (principal)
CPT/HCPCS: 49083; 82565; 82947; 85049; 85610; P9047; J1642

== ENCOUNTER 2021-07-05 12:09 | Day surgery (SDC) | payer MEDICARE ==
[2021-07-05 12:47] LABS: Basophils % (A) 1 %; Eosinophils # (A) 0.1 k/uL (0-0.7); Eosinophils % (A) 2 %; HCT 35.5 % (34.0-46.0); HGB 11.5 gm/dL (11.4-16.0); Lymphocytes # (A) 0.5 k/uL (1.0-4.8); Lymphocytes % (A) 8 %; MCH 28.8 pg (25.0-35.0); MCHC 32.3 g/dL (31.0-37.0); MCV 89.1 fL (80.0-100.0); Mean Platelet Volume 8.4; Monocytes # (A) 0.3 k/uL (0-1.0); Monocytes % (A) 5 %; Neutrophils # (A) 4.8 k/uL (1.3-7.7); Neutrophils % (A) 83 %; Platelet Count 216 k/uL (150-450); RBC 3.99 m/uL (3.80-5.40); RDW 15.5 % (11.5-15.5); WBC 5.8 k/uL (3.8-10.6)
[2021-07-05 13:00] LABS: Albumin 3.2 g/dL (3.5-5.0); Bilirubin, Delta 0.1 mg/dL (0.0-0.2); Bilirubin,Unconjugated 0.2 mg/dL (0.0-1.1); Total Bilirubin 0.3 mg/dL (0.2-1.3); Total Protein 5.8 g/dL (6.3-8.2)
[2021-07-05 13:03] VITALS: TEMP 98.1
[2021-07-05 13:06] LABS: INR 1.2 (<1.2); Prothrombin Time 12.3 sec (9.0-12.0)
[2021-07-05] MEDS: ALBUMIN HUMAN 25% 50 ML in EMPTY BAG 1 BAG IVPB SCH ×4 (13:13→14:42)
[2021-07-05 13:58] VITALS: RESP 16
[2021-07-05 15:28] VITALS: BP 119/71; PULSE 71
--- NOTE | 2021-07-05 17:35 | US ---
EXAMINATION TYPE: US paracentesis abd w/image DATE OF EXAM: 07/05/2021 COMPARISON: NONE HISTORY: Ascites. PROCEDURE: Maximal barrier technique was utilized. The skin overlying a suitable pocket of fluid was localized with ultrasound and the overlying skin was prepped and draped. Ultrasound was utilized with sterile technique. Lidocaine was used for local anesthesia and a skin saurabh made with a scalpel. Catheter was advanced under direct ultrasound guidance into a suitable pocket of fluid and approximately 7.6 liter s of serous fluid were removed. Catheter was withdrawn and hemostasis achieved. There is no immedia te complication; the patient is discharged in stable condition. IMPRESSION: STATUS POST ULTRASOUND GUIDED PARACENTESIS FOR PALLIATION OF ASCITES. THIS PROCEDURE WA S PERFORMED BY THE UNDERSIGNED.
== END 2021-07-05 15:29 ==
LOC: RADPROMAIN 12:09
PROVIDERS: ATTEND Internal Medicine Gastroenterology
DX: K70.31 Alcoholic cirrhosis of liver with ascites (principal)
CPT/HCPCS: 80076; 82565; 82947; 85025; 85610; 82105; 49083; P9047; J1642

== ENCOUNTER 2021-07-12 12:01 | Day surgery (SDC) | payer MEDICARE ==
[2021-07-12 12:38] VITALS: RESP 16; TEMP 97.9
[2021-07-12 13:04] LABS: Mean Platelet Volume 8.7; Platelet Count 202 k/uL (150-450)
[2021-07-12 13:18] LABS: INR 1.3 (<1.2); Prothrombin Time 13.1 sec (9.0-12.0)
[2021-07-12] MEDS: ALBUMIN HUMAN 25% 50 ML in EMPTY BAG 1 BAG IVPB SCH ×4 (13:55→14:46)
[2021-07-12 15:02] VITALS: BP 117/58; PULSE 64
--- NOTE | 2021-07-12 15:44 | US ---
Ultrasound-guided paracentesis. DATE OF EXAM: 07/12/2021 CLINICAL HISTORY: ascites The procedure was discussed with the patient. The risks, complications, benefits, and alternatives we re discussed and any questions were answered. Informed consent was obtained. The patient was placed s upine on the ultrasound table and prepped and draped in the usual sterile fashion. All elements of maximal barrier technique were utilized. Under ultrasound guidance, access into the righter quadrant was obtained, via the paracentesis catheter system and direct ultrasound guidance. Approximately 6.7i liters serous was removed. The patient was stable throughout the procedure and rem ained stable upon discharge from Department of Radiology. IMPRESSION: Successful paracentesis under ultrasound guidance.
== END 2021-07-12 15:10 | disposition home or self-care (01) ==
LOC: RADPROMAIN 12:01
PROVIDERS: ATTEND Internal Medicine Gastroenterology
DX: R18.8 Other ascites (principal)
CPT/HCPCS: 49083; 82565; 82947; 85049; 85610; 36415; P9047

== ENCOUNTER 2021-07-19 08:38 | Day surgery (SDC) | payer MEDICARE ==
[2021-07-19 09:16] LABS: INR 1.3 (<1.2); Prothrombin Time 13.2 sec (9.0-12.0)
[2021-07-19 09:21] LABS: Mean Platelet Volume 8.3; Platelet Count 205 k/uL (150-450)
[2021-07-19 09:27] VITALS: RESP 16; TEMP 98.3
[2021-07-19] MEDS: ALBUMIN HUMAN 25% 50 ML in EMPTY BAG 1 BAG IVPB SCH ×4 (09:47→10:33)
[2021-07-19 11:33] VITALS: BP 132/70; PULSE 85
--- NOTE | 2021-07-19 12:22 | US ---
EXAMINATION TYPE: US paracentesis abd w/image DATE OF EXAM: 07/19/2021 COMPARISON: NONE HISTORY: Ascites. PROCEDURE: Maximal barrier technique was utilized. The skin overlying a suitable pocket of fluid was localized with ultrasound and the overlying skin was prepped and draped. Ultrasound was utilized with sterile technique. Lidocaine was used for local anesthesia and a skin saurabh made with a scalpel. Catheter was advanced under direct ultrasound guidance into a suitable pocket of fluid and approximately 8.2 liter s of serous fluid were removed. Catheter was withdrawn and hemostasis achieved. There is no immedia te complication; the patient is discharged in stable condition. IMPRESSION: STATUS POST ULTRASOUND GUIDED PARACENTESIS FOR PALLIATION OF ASCITES. THIS PROCEDURE WA S PERFORMED BY THE UNDERSIGNED.
== END 2021-07-19 12:07 | disposition home or self-care (01) ==
LOC: RADPROMAIN 08:38
PROVIDERS: ATTEND Internal Medicine Gastroenterology
DX: R18.8 Other ascites (principal)
CPT/HCPCS: 82565; 82947; 85049; 85610; 49083; P9047; J1642

== ENCOUNTER 2021-07-26 08:42 | Day surgery (SDC) | payer MEDICARE ==
[2021-07-26 08:56] VITALS: RESP 16; TEMP 97.5
[2021-07-26 09:30] LABS: Mean Platelet Volume 8.3; Platelet Count 248 k/uL (150-450)
[2021-07-26 09:44] LABS: INR 1.2 (<1.2); Prothrombin Time 12.5 sec (9.0-12.0)
[2021-07-26] MEDS: ALBUMIN HUMAN 25% 50 ML in EMPTY BAG 1 BAG IVPB SCH ×4 (10:10→10:56)
[2021-07-26 11:26] VITALS: BP 112/64; PULSE 78
--- NOTE | 2021-07-26 12:05 | US ---
Ultrasound-guided paracentesis. DATE OF EXAM: 07/26/2021 CLINICAL HISTORY: Ascites The procedure was discussed with the patient. The risks, complications, benefits, and alternatives we re discussed and any questions were answered. Informed consent was obtained. The patient was placed s upine on the ultrasound table and prepped and draped in the usual sterile fashion. All elements of maximal barrier technique were utilized. Under ultrasound guidance, access into the right lower quadrant was obtained, via the paracentesis catheter system and direct ultrasound guidanc e. Approximately 8.4 liters of straw-colored fluid was removed. The patient was stable throughout the pr ocedure and remained stable upon discharge from Department of Radiology. IMPRESSION: Successful paracentesis under ultrasound guidance.
== END 2021-07-26 11:50 | disposition home or self-care (01) ==
LOC: RADPROMAIN 08:42
PROVIDERS: ATTEND Internal Medicine Gastroenterology
DX: K70.31 Alcoholic cirrhosis of liver with ascites (principal)
CPT/HCPCS: 82565; 82947; 85049; 85610; 36415; 49083; P9047; J1642

== ENCOUNTER 2021-08-09 12:34 | Day surgery (SDC) | payer MEDICARE ==
[2021-08-09 13:08] LABS: Mean Platelet Volume 8.4; Platelet Count 216 k/uL (150-450)
[2021-08-09 13:09] VITALS: TEMP 98
[2021-08-09 13:19] LABS: INR 1.3 (<1.2); Prothrombin Time 13.1 sec (9.0-12.0)
[2021-08-09] MEDS: ALBUMIN HUMAN 25% 50 ML in EMPTY BAG 1 BAG IVPB SCH ×3 (13:56→14:38)
[2021-08-09 15:12] VITALS: BP 118/69; PULSE 67; RESP 14
--- NOTE | 2021-08-09 15:38 | US ---
Ultrasound-guided paracentesis. DATE OF EXAM: 08/09/2021 CLINICAL HISTORY: Ascites The procedure was discussed with the patient. The risks, complications, benefits, and alternatives we re discussed and any questions were answered. Informed consent was obtained. The patient was placed s upine on the ultrasound table and prepped and draped in the usual sterile fashion. All elements of maximal barrier technique were utilized. Under ultrasound guidance, access into the right lower quadrant was obtained, via the paracentesis catheter system and direct ultrasound guidanc e. Approximately 5.3 liters of straw-colored fluid was removed. The patient was stable throughout the pr ocedure and remained stable upon discharge from Department of Radiology. IMPRESSION: Successful paracentesis under ultrasound guidance.
== END 2021-08-09 15:05 | disposition home or self-care (01) ==
LOC: RADPROMAIN 12:34
PROVIDERS: ATTEND Internal Medicine Gastroenterology
DX: R18.8 Other ascites (principal)
CPT/HCPCS: 49083; 82565; 82947; 85049; 85610; P9047; J1642

== ENCOUNTER 2021-08-16 12:15 | Day surgery (SDC) | payer MEDICARE ==
[2021-08-16 12:49] LABS: Mean Platelet Volume 8.3; Platelet Count 253 k/uL (150-450)
[2021-08-16 12:56] LABS: INR 1.2 (<1.2); Prothrombin Time 12.5 sec (9.0-12.0)
[2021-08-16 13:12] VITALS: TEMP 98.2
[2021-08-16] MEDS: ALBUMIN HUMAN 25% 50 ML in EMPTY BAG 1 BAG IVPB SCH ×4 (13:48→14:59)
[2021-08-16 14:54] VITALS: RESP 14
[2021-08-16 15:24] VITALS: BP 136/70; PULSE 68
--- NOTE | 2021-08-16 15:47 | US ---
EXAMINATION TYPE: US paracentesis abd w/image DATE OF EXAM: 08/16/2021 COMPARISON: NONE HISTORY: Ascites. PROCEDURE: Maximal barrier technique was utilized. The skin overlying a suitable pocket of fluid was localized with ultrasound and the overlying skin was prepped and draped. Ultrasound was utilized with sterile technique. Lidocaine was used for local anesthesia and a skin saurabh made with a scalpel. Catheter was advanced under direct ultrasound guidance into a suitable pocket of fluid and approximately 7.3 liter s of serous fluid were removed. Catheter was withdrawn and hemostasis achieved. There is no immedia te complication; the patient is discharged in stable condition. IMPRESSION: STATUS POST ULTRASOUND GUIDED PARACENTESIS FOR PALLIATION OF ASCITES. THIS PROCEDURE WA S PERFORMED BY THE UNDERSIGNED.
== END 2021-08-16 15:20 | disposition home or self-care (01) ==
LOC: RADPROMAIN 12:15
PROVIDERS: ATTEND Internal Medicine Gastroenterology
DX: K70.31 Alcoholic cirrhosis of liver with ascites (principal)
CPT/HCPCS: 82565; 82947; 85049; 85610; 49083; P9047; J1642

== ENCOUNTER 2021-08-23 12:12 | Day surgery (SDC) | payer MEDICARE ==
[2021-08-23 12:50] LABS: Mean Platelet Volume 8.3; Platelet Count 246 k/uL (150-450)
[2021-08-23 12:51] VITALS: TEMP 98.5
[2021-08-23 13:07] LABS: INR 1.2 (<1.2); Prothrombin Time 12.5 sec (9.0-12.0)
[2021-08-23] MEDS: ALBUMIN HUMAN 25% 50 ML in EMPTY BAG 1 BAG IVPB SCH ×4 (13:43→14:46)
[2021-08-23 15:09] VITALS: BP 128/71; PULSE 79; RESP 14
--- NOTE | 2021-08-23 15:19 | US ---
EXAMINATION TYPE: US paracentesis abd w/image DATE OF EXAM: 08/23/2021 COMPARISON: NONE HISTORY: Ascites. PROCEDURE: Maximal barrier technique was utilized. The skin overlying a suitable pocket of fluid was localized with ultrasound and the overlying skin was prepped and draped. Ultrasound was utilized with sterile technique. Lidocaine was used for local anesthesia and a skin saurabh made with a scalpel. Catheter was advanced under direct ultrasound guidance into a suitable pocket of fluid and approximately 7.6 liter s of serous fluid were removed. Catheter was withdrawn and hemostasis achieved. There is no immedia te complication; the patient is discharged in stable condition. IMPRESSION: STATUS POST ULTRASOUND GUIDED PARACENTESIS FOR PALLIATION OF ASCITES. THIS PROCEDURE WA S PERFORMED BY THE UNDERSIGNED.
== END 2021-08-23 15:06 | disposition home or self-care (01) ==
LOC: RADPROMAIN 12:12
PROVIDERS: ATTEND Internal Medicine Gastroenterology
DX: R18.8 Other ascites (principal)
CPT/HCPCS: 49083; 82565; 82947; 85049; 85610; P9047; J1642

== ENCOUNTER 2021-08-30 12:11 | Day surgery (SDC) | payer MEDICARE ==
[2021-08-30 12:28] VITALS: RESP 16; TEMP 97.4
[2021-08-30 13:18] LABS: Mean Platelet Volume 8.6; Platelet Count 220 k/uL (150-450)
[2021-08-30 13:50] LABS: INR 1.1 (<1.2); Partial Thromboplastin Time 28.3 sec (22.0-30.0); Prothrombin Time 11.5 sec (9.0-12.0)
[2021-08-30] MEDS: ALBUMIN HUMAN 25% 50 ML in EMPTY BAG 1 BAG IVPB SCH ×4 (14:07→14:47)
[2021-08-30 16:01] VITALS: BP 113/71; PULSE 76
--- NOTE | 2021-08-30 16:34 | US ---
EXAMINATION TYPE: US paracentesis abd w/image DATE OF EXAM: 08/30/2021 COMPARISON: NONE HISTORY: Ascites. PROCEDURE: Maximal barrier technique was utilized. The skin overlying a suitable pocket of fluid was localized with ultrasound and the overlying skin was prepped and draped. Ultrasound was utilized with sterile technique. Lidocaine was used for local anesthesia and a skin saurabh made with a scalpel. Catheter was advanced under direct ultrasound guidance into a suitable pocket of fluid and approximately 7.1 liter s of serous fluid were removed. Catheter was withdrawn and hemostasis achieved. There is no immedia te complication; the patient is discharged in stable condition. IMPRESSION: STATUS POST ULTRASOUND GUIDED PARACENTESIS FOR PALLIATION OF ASCITES. THIS PROCEDURE WA S PERFORMED BY THE UNDERSIGNED.
== END 2021-08-30 15:30 | disposition home or self-care (01) ==
LOC: RADPROMAIN 12:11
PROVIDERS: ATTEND Internal Medicine Gastroenterology
DX: K70.31 Alcoholic cirrhosis of liver with ascites (principal)
CPT/HCPCS: 82565; 82947; 85049; 85610; 85730; 49083; P9047; J1642

== ENCOUNTER → 2021-09-02 | Outpatient (CLI) | payer MEDICARE ==
[2021-09-02 19:14] LABS: African American GFR (CKD) 59.5 (60.0-200.0); Anion Gap 13.1 mmol/L (10.00-18.00); BUN/Creat Ratio 35.24 Ratio (12.00-20.00); Blood Urea Nitrogen 36.3 mg/dL (9.0-27.0); Calcium 8.9 mg/dL (8.7-10.3); Carbon Dioxide 18.3 mmol/L (20.0-27.5); Non-African American GFR(CKD) 51.3 (60.0-200.0); Potassium 5.1 mmol/L (3.5-5.5)
== END | disposition home or self-care (01) ==
LOC: LABWHC1 13:03
PROVIDERS: ATTEND Nurse Practitioner Family
DX: E87.1 Hypo-osmolality and hyponatremia (principal)
CPT/HCPCS: 36415; 80048

== ENCOUNTER 2021-09-06 12:12 | Day surgery (SDC) | payer MEDICARE ==
[2021-09-06 12:40] LABS: Mean Platelet Volume 8.3; Platelet Count 231 k/uL (150-450)
[2021-09-06 12:50] LABS: INR 1.1 (<1.2)
[2021-09-06] MEDS: ALBUMIN HUMAN 25% 50 ML in EMPTY BAG 1 BAG IVPB SCH ×4 (13:51→14:46)
[2021-09-06 14:10] VITALS: RESP 16
[2021-09-06 14:56] VITALS: BP 118/76; PULSE 80
[2021-09-06 15:48] VITALS: TEMP 97.9
--- NOTE | 2021-09-06 16:03 | US ---
Ultrasound-guided paracentesis. DATE OF EXAM: 09/06/2021 CLINICAL HISTORY: Ascites The procedure was discussed with the patient. The risks, complications, benefits, and alternatives we re discussed and any questions were answered. Informed consent was obtained. The patient was placed s upine on the ultrasound table and prepped and draped in the usual sterile fashion. All elements of maximal barrier technique were utilized. Under ultrasound guidance, access into the right lower quadrant was obtained, via the paracentesis catheter system and direct ultrasound guidanc e. Approximately 7.9 liters of straw-colored fluid was removed. The patient was stable throughout the pr ocedure and remained stable upon discharge from Department of Radiology. IMPRESSION: Successful paracentesis under ultrasound guidance.
== END 2021-09-06 15:05 | disposition home or self-care (01) ==
LOC: RADPROMAIN 12:12
PROVIDERS: ATTEND Internal Medicine Gastroenterology
DX: K70.31 Alcoholic cirrhosis of liver with ascites (principal)
CPT/HCPCS: 82565; 82947; 85049; 85610; 49083; P9047; J1642

== ENCOUNTER 2021-09-13 12:04 | Day surgery (SDC) | payer MEDICARE ==
[2021-09-13 12:41] VITALS: RESP 16; TEMP 98.5
[2021-09-13 12:48] LABS: Mean Platelet Volume 8.6; Platelet Count 211 k/uL (150-450)
[2021-09-13 13:22] LABS: INR 1.1 (<1.2)
[2021-09-13] MEDS: ALBUMIN HUMAN 25% 50 ML in EMPTY BAG 1 BAG IVPB SCH ×4 (13:47→14:37)
[2021-09-13 14:49] VITALS: BP 110/67; PULSE 69
--- NOTE | 2021-09-13 15:33 | US ---
Ultrasound-guided paracentesis. DATE OF EXAM: 09/13/2021 CLINICAL HISTORY: Ascites The procedure was discussed with the patient. The risks, complications, benefits, and alternatives we re discussed and any questions were answered. Informed consent was obtained. The patient was placed s upine on the ultrasound table and prepped and draped in the usual sterile fashion. All elements of maximal barrier technique were utilized. Under ultrasound guidance, access into the right lower quadrant was obtained, via the paracentesis catheter system and direct ultrasound guidanc e. Approximately 7.8 liters of straw-colored fluid was removed. The patient was stable throughout the pr ocedure and remained stable upon discharge from Department of Radiology. IMPRESSION: Successful paracentesis under ultrasound guidance.
== END 2021-09-13 15:00 | disposition home or self-care (01) ==
LOC: RADPROMAIN 12:04
PROVIDERS: ATTEND Internal Medicine Gastroenterology
DX: R18.8 Other ascites (principal)
CPT/HCPCS: 82565; 82947; 85049; 85610; 36415; 49083; P9047; J1642

== ENCOUNTER 2021-09-20 12:00 | Day surgery (SDC) | payer MEDICARE ==
[2021-09-20 13:01] LABS: Mean Platelet Volume 8.4; Platelet Count 241 k/uL (150-450)
[2021-09-20 13:06] LABS: INR 1.2 (<1.2); Prothrombin Time 12.7 sec (9.0-12.0)
[2021-09-20] MEDS: ALBUMIN HUMAN 25% 50 ML in EMPTY BAG 1 BAG IVPB SCH ×4 (13:13→14:11)
[2021-09-20 13:21] VITALS: RESP 16; TEMP 98.3
--- NOTE | 2021-09-20 15:19 | US ---
EXAMINATION TYPE: US paracentesis abd w/image DATE OF EXAM: 09/20/2021 COMPARISON: NONE HISTORY: Ascites. PROCEDURE: Maximal barrier technique was utilized. The skin overlying a suitable pocket of fluid was localized with ultrasound and the overlying skin was prepped and draped. Ultrasound was utilized with sterile technique. Lidocaine was used for local anesthesia and a skin saurabh made with a scalpel. Catheter was advanced under direct ultrasound guidance into a suitable pocket of fluid and approximately 8.4 liter s of serous fluid were removed. Catheter was withdrawn and hemostasis achieved. There is no immedia te complication; the patient is discharged in stable condition. IMPRESSION: STATUS POST ULTRASOUND GUIDED PARACENTESIS FOR PALLIATION OF ASCITES. THIS PROCEDURE WA S PERFORMED BY THE UNDERSIGNED.
[2021-09-20 15:26] VITALS: BP 126/70; PULSE 75
== END 2021-09-20 15:20 | disposition home or self-care (01) ==
LOC: RADPROMAIN 12:00
PROVIDERS: ATTEND Internal Medicine Gastroenterology
DX: K70.31 Alcoholic cirrhosis of liver with ascites (principal)
CPT/HCPCS: 82565; 82947; 85049; 85610; 49083; P9047; J1642

== ENCOUNTER 2021-09-27 11:57 | Day surgery (SDC) | payer MEDICARE ==
[2021-09-27 12:27] VITALS: TEMP 97.4
[2021-09-27 12:46] LABS: Mean Platelet Volume 8.6; Platelet Count 220 k/uL (150-450)
[2021-09-27 12:53] LABS: INR 1.4 (<1.2); Prothrombin Time 14.3 sec (9.0-12.0)
[2021-09-27] MEDS: ALBUMIN HUMAN 25% 50 ML in EMPTY BAG 1 BAG IVPB SCH ×4 (12:55→13:58)
[2021-09-27 14:19] VITALS: BP 131/61; PULSE 83; RESP 16
--- NOTE | 2021-09-27 15:05 | US ---
EXAMINATION TYPE: US paracentesis abd w/image DATE OF EXAM: 09/27/2021 COMPARISON: NONE HISTORY: Ascites. PROCEDURE: Maximal barrier technique was utilized. The skin overlying a suitable pocket of fluid was localized with ultrasound and the overlying skin was prepped and draped. Ultrasound was utilized with sterile technique. Lidocaine was used for local anesthesia and a skin saurabh made with a scalpel. Catheter was advanced under direct ultrasound guidance into a suitable pocket of fluid and approximately 8 liters of serous fluid were removed. Catheter was withdrawn and hemostasis achieved. There is no immediate complication; the patient is discharged in stable condition. IMPRESSION: STATUS POST ULTRASOUND GUIDED PARACENTESIS FOR PALLIATION OF ASCITES. THIS PROCEDURE WA S PERFORMED BY THE UNDERSIGNED.
== END 2021-09-27 14:56 | disposition home or self-care (01) ==
LOC: RADPROMAIN 11:57
PROVIDERS: ATTEND Internal Medicine Gastroenterology
DX: K70.31 Alcoholic cirrhosis of liver with ascites (principal)
CPT/HCPCS: 82565; 82947; 85049; 85610; 49083; P9047; J1642

== ENCOUNTER 2021-10-04 12:07 | Day surgery (SDC) | payer MEDICARE ==
[2021-10-04 12:44] LABS: Mean Platelet Volume 8.4; Platelet Count 232 k/uL (150-450)
[2021-10-04 12:46] VITALS: TEMP 98.1
[2021-10-04 12:49] LABS: INR 1.2 (<1.2); Prothrombin Time 12.4 sec (9.0-12.0)
[2021-10-04] MEDS: ALBUMIN HUMAN 25% 50 ML in EMPTY BAG 1 BAG IVPB SCH ×4 (13:29→14:12)
[2021-10-04 15:11] VITALS: BP 128/64; PULSE 68; RESP 18
--- NOTE | 2021-10-04 15:42 | US ---
EXAMINATION TYPE: US paracentesis abd w/image DATE OF EXAM: 10/04/2021 COMPARISON: NONE HISTORY: Ascites. PROCEDURE: Maximal barrier technique was utilized. The skin overlying a suitable pocket of fluid was localized with ultrasound and the overlying skin was prepped and draped. Ultrasound was utilized with sterile technique. Lidocaine was used for local anesthesia and a skin saurabh made with a scalpel. Catheter was advanced under direct ultrasound guidance into a suitable pocket of fluid and approximately 8.1 liter s of serous fluid were removed. Catheter was withdrawn and hemostasis achieved. There is no immedia te complication; the patient is discharged in stable condition. IMPRESSION: STATUS POST ULTRASOUND GUIDED PARACENTESIS FOR PALLIATION OF ASCITES. THIS PROCEDURE WA S PERFORMED BY THE UNDERSIGNED.
== END 2021-10-04 14:50 | disposition home or self-care (01) ==
LOC: RADPROMAIN 12:07
PROVIDERS: ATTEND Internal Medicine Gastroenterology
DX: K70.31 Alcoholic cirrhosis of liver with ascites (principal)
CPT/HCPCS: 82565; 82947; 85049; 85610; 49083; P9047; J1642

== ENCOUNTER → 2021-10-24 | Outpatient (CLI) | payer MEDICARE ==
[2021-10-24 09:51] LABS: Appearance,Urine Clear (Clear); Bilirubin,Urine Negative (Negative); Blood,Urine Negative (Negative); Color,Urine Yellow; Glucose,Urine (UA) Negative (Negative); Ketones,Urine Negative (Negative); Leukocyte Esterase,Urine Negative (Negative); Nitrite,Urine Negative (Negative); Protein,Urine Negative (Negative); Specific Gravity,Urine 1.016 (1.001-1.035); Urobilinogen,Urine <2.0 mg/dL (<2.0)
[2021-10-24 14:54] LABS: HCT 39.4 % (37.2-46.3); HGB 12.3 g/dL (12.0-15.0); MCH 28.5 pg (27.0-32.0); MCHC 31.2 g/dL (32.0-37.0); MCV 91.4 fL (80.0-97.0); Mean Platelet Volume 11.8 fL (9.5-12.2); NRBC Per 100 WBC 0 /100 WBCS (0.0-0.0); Platelet Count 229 X 10*3/uL (140-440); RBC 4.31 X 10*6/uL (4.10-5.20); RDW 15.2 % (11.5-14.5); WBC 5.09 X 10*3/uL (4.50-10.00)
[2021-10-24 15:37] LABS: % Iron Saturation 26.62 (12.00-45.00); African American GFR (CKD) 62.1 (60.0-200.0); Anion Gap 14.3 mmol/L (10.00-18.00); BUN/Creat Ratio 37.73 Ratio (12.00-20.00); Blood Urea Nitrogen 37.5 mg/dL (9.0-27.0); Calcium 8.7 mg/dL (8.7-10.3); Carbon Dioxide 16.7 mmol/L (20.0-27.5); Magnesium 2.2 mg/dL (1.5-2.4); Non-African American GFR(CKD) 53.6 (60.0-200.0); Phosphorus 3.7 mg/dL (2.4-5.1); Potassium 4.3 mmol/L (3.5-5.5)
== END | disposition home or self-care (01) ==
LOC: LABWHC1 08:37
PROVIDERS: ATTEND Nurse Practitioner Family
DX: E55.9 Vitamin D deficiency, unspecified (principal); E87.1 Hypo-osmolality and hyponatremia; D64.9 Anemia, unspecified; N39.0 Urinary tract infection, site not specified
CPT/HCPCS: 36415; 80048; 81003; 82306; 82728; 83540; 83550; 83735; 84100; 85027

== ENCOUNTER 2021-11-01 12:05 | Day surgery (SDC) | payer MEDICARE ==
[2021-11-01 12:46] VITALS: TEMP 97.9
[2021-11-01 13:08] LABS: Mean Platelet Volume 8.5; Platelet Count 220 k/uL (150-450)
[2021-11-01 13:12] LABS: INR 1.2 (<1.2); Prothrombin Time 12.5 sec (9.0-12.0)
[2021-11-01] MEDS: ALBUMIN HUMAN 25% 50 ML in EMPTY BAG 1 BAG IVPB SCH ×5 (13:50→14:43)
[2021-11-01 15:32] VITALS: BP 121/64; PULSE 69; RESP 18
--- NOTE | 2021-11-01 15:51 | US ---
Ultrasound-guided paracentesis. DATE OF EXAM: 11/01/2021 CLINICAL HISTORY: Ascites The procedure was discussed with the patient. The risks, complications, benefits, and alternatives we re discussed and any questions were answered. Informed consent was obtained. The patient was placed s upine on the ultrasound table and prepped and draped in the usual sterile fashion. All elements of maximal barrier technique were utilized. Under ultrasound guidance, access into the right lower quadrant was obtained, via the paracentesis catheter system and direct ultrasound guidanc e. Approximately 7.2 liters of straw-colored fluid was removed. The patient was stable throughout the pr ocedure and remained stable upon discharge from Department of Radiology. IMPRESSION: Successful paracentesis under ultrasound guidance.
== END 2021-11-01 15:19 | disposition home or self-care (01) ==
LOC: RADPROMAIN 12:05
PROVIDERS: ATTEND Internal Medicine Gastroenterology
DX: R18.8 Other ascites (principal)
CPT/HCPCS: 49083; 82565; 82947; 85049; 85610; P9047; J1642

== ENCOUNTER 2021-11-08 12:07 | Day surgery (SDC) | payer MEDICARE ==
[2021-11-08 13:05] LABS: Glucose,Whole Blood 97 mg/dL (75-99)
[2021-11-08] MEDS: ALBUMIN HUMAN 25% 50 ML in EMPTY BAG 1 BAG IVPB SCH ×4 (13:40→14:27)
[2021-11-08 13:45] VITALS: RESP 16; TEMP 97.8
[2021-11-08] MEDS ORDERED: LIDOCAINE 1% INJ 10MG/ML (20 ML MDV) SQ ONE (13:49)
--- NOTE | 2021-11-08 14:49 | US ---
Ultrasound-guided paracentesis. DATE OF EXAM: 11/08/2021 CLINICAL HISTORY: Ascites The procedure was discussed with the patient. The risks, complications, benefits, and alternatives we re discussed and any questions were answered. Informed consent was obtained. The patient was placed s upine on the ultrasound table and prepped and draped in the usual sterile fashion. All elements of maximal barrier technique were utilized. Under ultrasound guidance, access into the 7.6 lower quadrant was obtained, via the paracentesis catheter system and direct ultrasound guidance. Approximately right liters of straw-colored fluid was removed. The patient was stable throughout the procedure and remained stable upon discharge from Department of Radiology. IMPRESSION: Successful paracentesis under ultrasound guidance.
[2021-11-08 15:10] VITALS: BP 114/63; PULSE 71
== END 2021-11-08 15:07 | disposition home or self-care (01) ==
LOC: RADPROMAIN 12:07
PROVIDERS: ATTEND Internal Medicine Gastroenterology
DX: R18.8 Other ascites (principal)
CPT/HCPCS: 49083; J2001; P9047; J1642

== ENCOUNTER 2021-11-15 11:58 | Day surgery (SDC) | payer MEDICARE ==
[2021-11-15 12:13] VITALS: RESP 16; TEMP 97.3
[2021-11-15 12:35] LABS: Mean Platelet Volume 8.4; Platelet Count 234 k/uL (150-450)
[2021-11-15 12:38] LABS: INR 1.2 (<1.2); Prothrombin Time 12.5 sec (9.0-12.0)
[2021-11-15] MEDS: ALBUMIN HUMAN 25% 50 ML in EMPTY BAG 1 BAG IVPB SCH ×4 (12:56→13:41)
[2021-11-15 14:04] VITALS: BP 133/62; PULSE 84
--- NOTE | 2021-11-15 14:46 | US ---
Ultrasound-guided paracentesis. DATE OF EXAM: 11/15/2021 CLINICAL HISTORY: Ascites The procedure was discussed with the patient. The risks, complications, benefits, and alternatives we re discussed and any questions were answered. Informed consent was obtained. The patient was placed s upine on the ultrasound table and prepped and draped in the usual sterile fashion. All elements of maximal barrier technique were utilized. Under ultrasound guidance, access into the right lower quadrant was obtained, via the paracentesis catheter system and direct ultrasound guidanc e. Approximately 7 liters of straw-colored fluid was removed. The patient was stable throughout the proc edure and remained stable upon discharge from Department of Radiology. IMPRESSION: Successful paracentesis under ultrasound guidance.
== END 2021-11-15 14:15 | disposition home or self-care (01) ==
LOC: RADPROMAIN 11:58
PROVIDERS: ATTEND Internal Medicine Gastroenterology
DX: K70.31 Alcoholic cirrhosis of liver with ascites (principal)
CPT/HCPCS: 82565; 82947; 85049; 85610; 49083; P9047; J1642

== ENCOUNTER 2021-11-22 11:59 | Day surgery (SDC) | payer MEDICARE ==
[2021-11-22 14:24] VITALS: RESP 20; TEMP 97.7
[2021-11-22] MEDS: ALBUMIN HUMAN 25% 50 ML in EMPTY BAG 1 BAG IVPB SCH ×4 (14:33→15:49)
[2021-11-22] MEDS ORDERED: LIDOCAINE 1% INJ 10MG/ML (5 ML VIAL-PF) SQ ONE (15:06)
[2021-11-22 15:44] VITALS: BP 109/54; PULSE 72
--- NOTE | 2021-11-22 16:20 | US ---
EXAMINATION TYPE: US paracentesis abd w/image DATE OF EXAM: 11/22/2021 COMPARISON: NONE HISTORY: Ascites. PROCEDURE: Maximal barrier technique was utilized. The skin overlying a suitable pocket of fluid was localized with ultrasound and the overlying skin was prepped and draped. Ultrasound was utilized with sterile technique. Lidocaine was used for local anesthesia and a skin saurabh made with a scalpel. Catheter was advanced under direct ultrasound guidance into a suitable pocket of fluid and approximately 7.2 liter s of serous fluid were removed. Catheter was withdrawn and hemostasis achieved. There is no immedia te complication; the patient is discharged in stable condition. IMPRESSION: STATUS POST ULTRASOUND GUIDED PARACENTESIS FOR PALLIATION OF ASCITES. THIS PROCEDURE WA S PERFORMED BY THE UNDERSIGNED.
== END 2021-11-22 15:55 | disposition home or self-care (01) ==
LOC: RADPROMAIN 11:59
PROVIDERS: ATTEND Internal Medicine Gastroenterology
DX: K70.31 Alcoholic cirrhosis of liver with ascites (principal)
CPT/HCPCS: 49083; J2001; P9047; J1642

== ENCOUNTER 2021-12-06 11:58 | Day surgery (SDC) | payer MEDICARE ==
[2021-12-06 12:31] VITALS: RESP 16; TEMP 97.7
[2021-12-06 12:50] LABS: Mean Platelet Volume 7.9; Platelet Count 244 k/uL (150-450)
[2021-12-06 12:55] LABS: INR 1.1 (<1.2); Prothrombin Time 12.1 sec (9.0-12.0)
[2021-12-06] MEDS: ALBUMIN HUMAN 25% 50 ML in EMPTY BAG 1 BAG IVPB SCH ×3 (13:26→13:56)
[2021-12-06 14:38] VITALS: BP 113/69; PULSE 74
--- NOTE | 2021-12-09 08:54 | US ---
Ultrasound-guided paracentesis. DATE OF EXAM: 12/06/2021 CLINICAL HISTORY: Ascites The procedure was discussed with the patient. The risks, complications, benefits, and alternatives we re discussed and any questions were answered. Informed consent was obtained. The patient was placed s upine on the ultrasound table and prepped and draped in the usual sterile fashion. All elements of maximal barrier technique were utilized. Under ultrasound guidance, access into the right lower quadrant was obtained, via the paracentesis catheter system and direct ultrasound guidanc e. Approximately 7.6 liters of straw-colored fluid was removed. The patient was stable throughout the pr ocedure and remained stable upon discharge from Department of Radiology. IMPRESSION: Successful paracentesis under ultrasound guidance.
== END 2021-12-06 14:40 | disposition home or self-care (01) ==
LOC: RADPROMAIN 11:58
PROVIDERS: ATTEND Internal Medicine Gastroenterology
DX: R18.8 Other ascites (principal)
CPT/HCPCS: 49083; 82565; 82947; 85049; 85610; P9047; J1642

== ENCOUNTER 2021-12-20 12:21 | Day surgery (SDC) | payer MEDICARE ==
[2021-12-20 12:47] LABS: Mean Platelet Volume 8.7; Platelet Count 221 k/uL (150-450)
[2021-12-20 12:48] VITALS: RESP 16; TEMP 97.8
[2021-12-20 12:53] LABS: INR 1.1 (<1.2); Prothrombin Time 12.2 sec (9.0-12.0)
[2021-12-20] MEDS: ALBUMIN HUMAN 25% 50 ML in EMPTY BAG 1 BAG IVPB SCH ×3 (13:40→14:10)
[2021-12-20 14:51] VITALS: BP 119/70; PULSE 71
--- NOTE | 2021-12-20 15:31 | US ---
EXAMINATION TYPE: US paracentesis abd w/image DATE OF EXAM: 12/20/2021 COMPARISON: NONE HISTORY: Ascites. PROCEDURE: Maximal barrier technique was utilized. The skin overlying a suitable pocket of fluid was localized with ultrasound and the overlying skin was prepped and draped. Ultrasound was utilized with sterile technique. Lidocaine was used for local anesthesia and a skin saurabh made with a scalpel. Catheter was advanced under direct ultrasound guidance into a suitable pocket of fluid and approximately 6.2 liter s of serous fluid were removed. Catheter was withdrawn and hemostasis achieved. There is no immedia te complication; the patient is discharged in stable condition. IMPRESSION: STATUS POST ULTRASOUND GUIDED PARACENTESIS FOR PALLIATION OF ASCITES. THIS PROCEDURE WA S PERFORMED BY THE UNDERSIGNED.
== END 2021-12-20 15:04 | disposition home or self-care (01) ==
LOC: RADPROMAIN 12:21
PROVIDERS: ATTEND Internal Medicine Gastroenterology
DX: R18.8 Other ascites (principal)
CPT/HCPCS: 49083; 82565; 82947; 85049; 85610; P9047; J1642

== ENCOUNTER 2021-12-27 11:56 | Day surgery (SDC) | payer MEDICARE ==
[2021-12-27 12:32] VITALS: RESP 18; TEMP 98.1
[2021-12-27 12:40] LABS: Mean Platelet Volume 8.3; Platelet Count 242 k/uL (150-450)
[2021-12-27 12:52] LABS: INR 1.2 (<1.2); Prothrombin Time 12.4 sec (9.0-12.0)
[2021-12-27] MEDS: ALBUMIN HUMAN 25% 50 ML in EMPTY BAG 1 BAG IVPB SCH ×4 (13:06→15:04)
[2021-12-27 15:07] VITALS: BP 115/57; PULSE 77
--- NOTE | 2021-12-27 16:01 | US ---
EXAMINATION TYPE: US paracentesis abd w/image DATE OF EXAM: 12/27/2021 COMPARISON: NONE HISTORY: Ascites. PROCEDURE: Maximal barrier technique was utilized. The skin overlying a suitable pocket of fluid was localized with ultrasound and the overlying skin was prepped and draped. Ultrasound was utilized with sterile technique. Lidocaine was used for local anesthesia and a skin saurabh made with a scalpel. Catheter was advanced under direct ultrasound guidance into a suitable pocket of fluid and approximately 7.2 liter s of ascitic fluid were removed. Catheter was withdrawn and hemostasis achieved. There is no immedi ate complication; the patient is discharged in stable condition. IMPRESSION: STATUS POST ULTRASOUND GUIDED PARACENTESIS FOR PALLIATION OF ASCITES. THIS PROCEDURE WA S PERFORMED BY THE UNDERSIGNED.
== END 2021-12-27 14:55 | disposition home or self-care (01) ==
LOC: RADPROMAIN 11:56
PROVIDERS: ATTEND Internal Medicine Gastroenterology
DX: R18.8 Other ascites (principal); Z91.030 Bee allergy status; Z91.013 Allergy to seafood; Z88.8 Allergy status to other drugs, medicaments and biological substances; Z88.0 Allergy status to penicillin; Z91.018 Allergy to other foods; Z79.899 Other long term (current) drug therapy; Z79.51 Long term (current) use of inhaled steroids; Z87.891 Personal history of nicotine dependence; Z88.2 Allergy status to sulfonamides
CPT/HCPCS: 82565; 82947; 85049; 85610; 36415; 49083; P9047; J1642

== ENCOUNTER 2022-01-03 12:05 | Day surgery (SDC) | payer MEDICARE ==
[2022-01-03 12:51] LABS: Mean Platelet Volume 8.3; Platelet Count 232 k/uL (150-450)
[2022-01-03 13:04] LABS: INR 1.1 (<1.2); Prothrombin Time 12.1 sec (9.0-12.0)
[2022-01-03] MEDS: ALBUMIN HUMAN 25% 50 ML in EMPTY BAG 1 BAG IVPB SCH ×4 (13:22→14:38)
[2022-01-03 13:53] VITALS: RESP 18; TEMP 97.8
[2022-01-03] MEDS ORDERED: LIDOCAINE 1% PF 10 MG/ML (5 ML AMP) SQ ONE (13:54)
[2022-01-03 14:54] VITALS: PULSE 70
[2022-01-03 15:00] VITALS: BP 123/63
--- NOTE | 2022-01-03 15:23 | US ---
Ultrasound-guided paracentesis. DATE OF EXAM: 01/03/2022 CLINICAL HISTORY: Ascites The procedure was discussed with the patient. The risks, complications, benefits, and alternatives we re discussed and any questions were answered. Informed consent was obtained. The patient was placed s upine on the ultrasound table and prepped and draped in the usual sterile fashion. All elements of maximal barrier technique were utilized. Under ultrasound guidance, access into the right lower quadrant was obtained, via the paracentesis catheter system and direct ultrasound guidanc e. Approximately 4.8 liters of straw-colored fluid was removed. The patient was stable throughout the pr ocedure and remained stable upon discharge from Department of Radiology. IMPRESSION: Successful paracentesis under ultrasound guidance.
== END 2022-01-03 14:55 | disposition home or self-care (01) ==
LOC: RADPROMAIN 12:05
PROVIDERS: ATTEND Internal Medicine Gastroenterology
DX: K70.31 Alcoholic cirrhosis of liver with ascites (principal)
CPT/HCPCS: 82565; 82947; 85049; 85610; 36415; 49083; J2001; P9047; J1642

== ENCOUNTER 2022-01-10 12:04 | Day surgery (SDC) | payer MEDICARE ==
[2022-01-10 13:25] VITALS: RESP 18; TEMP 98.9
[2022-01-10] MEDS: ALBUMIN HUMAN 25% 50 ML in EMPTY BAG 1 BAG IVPB SCH ×3 (13:43→15:26)
[2022-01-10 14:54] VITALS: BP 122/64; PULSE 82
--- NOTE | 2022-01-10 15:20 | US ---
EXAMINATION TYPE: US paracentesis abd w/image DATE OF EXAM: 01/10/2022 COMPARISON: NONE HISTORY: Ascites. PROCEDURE: Maximal barrier technique was utilized. The skin overlying a suitable pocket of fluid was localized with ultrasound and the overlying skin was prepped and draped. Ultrasound was utilized with sterile technique. Lidocaine was used for local anesthesia and a skin saurabh made with a scalpel. Catheter was advanced under direct ultrasound guidance into a suitable pocket of fluid and approximately 7 liters of serous fluid were removed. Catheter was withdrawn and hemostasis achieved. There is no immediate complication; the patient is discharged in stable condition. IMPRESSION: STATUS POST ULTRASOUND GUIDED PARACENTESIS FOR PALLIATION OF ASCITES. THIS PROCEDURE WA S PERFORMED BY THE UNDERSIGNED.
== END 2022-01-10 15:03 | disposition home or self-care (01) ==
LOC: RADPROMAIN 12:04
PROVIDERS: ATTEND Internal Medicine Gastroenterology
DX: R18.8 Other ascites (principal); Z91.030 Bee allergy status; Z91.018 Allergy to other foods; Z91.013 Allergy to seafood; Z88.8 Allergy status to other drugs, medicaments and biological substances; Z88.0 Allergy status to penicillin; Z88.2 Allergy status to sulfonamides; Z79.899 Other long term (current) drug therapy; Z79.84 Long term (current) use of oral hypoglycemic drugs; Z87.891 Personal history of nicotine dependence
CPT/HCPCS: 49083; P9047

== ENCOUNTER 2022-01-17 12:04 | Day surgery (SDC) | payer MEDICARE ==
[2022-01-17 13:04] VITALS: RESP 18; TEMP 97.5
[2022-01-17 13:07] LABS: Basophils % (A) 1 %; Eosinophils # (A) 0.2 k/uL (0-0.7); Eosinophils % (A) 4 %; HCT 36.8 % (34.0-46.0); HGB 12.1 gm/dL (11.4-16.0); Lymphocytes # (A) 0.5 k/uL (1.0-4.8); Lymphocytes % (A) 8 %; MCH 29.6 pg (25.0-35.0); MCHC 32.9 g/dL (31.0-37.0); Mean Platelet Volume 8.4; Monocytes # (A) 0.4 k/uL (0-1.0); Monocytes % (A) 6 %; Neutrophils # (A) 4.7 k/uL (1.3-7.7); Neutrophils % (A) 80 %; Platelet Count 228 k/uL (150-450); RBC 4.09 m/uL (3.80-5.40); RDW 14.1 % (11.5-15.5); WBC 5.9 k/uL (3.8-10.6)
[2022-01-17 13:16] LABS: Albumin 3.2 g/dL (3.5-5.0); Bilirubin, Delta 0.2 mg/dL (0.0-0.2); Bilirubin,Unconjugated 0.1 mg/dL (0.0-1.1); Total Bilirubin 0.3 mg/dL (0.2-1.3); Total Protein 5.4 g/dL (6.3-8.2)
[2022-01-17 13:19] LABS: INR 1.1 (<1.2); Prothrombin Time 11.8 sec (9.0-12.0)
[2022-01-17] MEDS: ALBUMIN HUMAN 25% 50 ML in EMPTY BAG 1 BAG IVPB SCH ×4 (13:51→14:49)
[2022-01-17] MEDS ORDERED: LIDOCAINE 1% PF 10 MG/ML (5 ML AMP) SQ ONE (14:57)
[2022-01-17 15:12] VITALS: BP 122/60; PULSE 70
--- NOTE | 2022-01-17 15:54 | US ---
EXAMINATION TYPE: US paracentesis abd w/image DATE OF EXAM: 01/17/2022 COMPARISON: NONE HISTORY: Ascites. PROCEDURE: Maximal barrier technique was utilized. The skin overlying a suitable pocket of fluid was localized with ultrasound and the overlying skin was prepped and draped. Ultrasound was utilized with sterile technique. Lidocaine was used for local anesthesia and a skin saurabh made with a scalpel. Catheter was advanced under direct ultrasound guidance into a suitable pocket of fluid and approximately 7.2 liter s of serous fluid were removed. Catheter was withdrawn and hemostasis achieved. There is no immedia te complication; the patient is discharged in stable condition. IMPRESSION: STATUS POST ULTRASOUND GUIDED PARACENTESIS FOR PALLIATION OF ASCITES. THIS PROCEDURE WA S PERFORMED BY THE UNDERSIGNED.
== END 2022-01-17 15:05 | disposition home or self-care (01) ==
LOC: RADPROMAIN 12:04
PROVIDERS: ATTEND Internal Medicine Gastroenterology
DX: R18.8 Other ascites (principal); Z91.030 Bee allergy status; Z91.018 Allergy to other foods; Z91.013 Allergy to seafood; Z88.8 Allergy status to other drugs, medicaments and biological substances; Z88.0 Allergy status to penicillin; Z79.899 Other long term (current) drug therapy; Z79.84 Long term (current) use of oral hypoglycemic drugs; Z87.891 Personal history of nicotine dependence
CPT/HCPCS: 80076; 82565; 82947; 85025; 85610; 82105; 36415; 49083; J2001; P9047; J1642

== ENCOUNTER → 2022-01-20 | Outpatient (CLI) | payer MEDICARE ==
--- NOTE | 2022-01-20 09:46 | US ---
EXAMINATION TYPE: US liver DATE OF EXAM: 01/20/2022 COMPARISON: None CLINICAL HISTORY: K74.60 CIRRHOSIS OF LIVER. Pt gets weekly paracentesis. EXAM MEASUREMENTS: Liver Length: 17.7 cm Gallbladder Wall: 0.2 cm CBD: 0.6 cm Right Kidney: 9.5 X 4.4 X 4.0 cm Pancreas: Echogenic in appearance Liver: Nodular and coarse. Gallbladder: wnl, folds seen Evidence for sonographic Sahni's sign: neg CBD: wnl Right Kidney: No hydronephrosis or masses seen Ascites visualized IMPRESSION: 1. Hepatomegaly. Liver appears nodular and coarse which can be compatible with cirrhosis. 2. Mild Ascites currently present.
== END | disposition home or self-care (01) ==
LOC: RADUSWWP 09:06
PROVIDERS: ATTEND Internal Medicine Gastroenterology
DX: K74.60 Unspecified cirrhosis of liver (principal); R18.8 Other ascites; R16.0 Hepatomegaly, not elsewhere classified
CPT/HCPCS: 76705

== ENCOUNTER 2022-01-24 12:00 | Day surgery (SDC) | payer MEDICARE ==
[2022-01-24] MEDS: ALBUMIN HUMAN 25% 50 ML in EMPTY BAG 1 BAG IVPB SCH ×4 (12:57→14:08)
[2022-01-24 13:07] VITALS: RESP 16; TEMP 98.3
[2022-01-24 14:37] VITALS: BP 122/64; PULSE 74
--- NOTE | 2022-01-24 16:14 | US ---
Ultrasound-guided paracentesis. DATE OF EXAM: 01/24/2022 CLINICAL HISTORY: Ascites The procedure was discussed with the patient. The risks, complications, benefits, and alternatives we re discussed and any questions were answered. Informed consent was obtained. The patient was placed s upine on the ultrasound table and prepped and draped in the usual sterile fashion. All elements of maximal barrier technique were utilized. Under ultrasound guidance, access into the right lower quadrant was obtained, via the paracentesis catheter system and direct ultrasound guidanc e. Approximately 7.2 liters of straw-colored fluid was removed. The patient was stable throughout the pr ocedure and remained stable upon discharge from Department of Radiology. IMPRESSION: Successful paracentesis under ultrasound guidance.
== END 2022-01-24 14:20 | disposition home or self-care (01) ==
LOC: RADPROMAIN 12:00
PROVIDERS: ATTEND Internal Medicine Gastroenterology
DX: K70.31 Alcoholic cirrhosis of liver with ascites (principal); Z88.1 Allergy status to other antibiotic agents; Z88.3 Allergy status to other anti-infective agents; Z91.030 Bee allergy status; Z91.018 Allergy to other foods; Z91.013 Allergy to seafood; Z88.2 Allergy status to sulfonamides; Z88.8 Allergy status to other drugs, medicaments and biological substances; Z91.09 Other allergy status, other than to drugs and biological substances; Z91.038 Other insect allergy status; Z88.0 Allergy status to penicillin; Z79.890 Hormone replacement therapy; Z79.899 Other long term (current) drug therapy; Z79.84 Long term (current) use of oral hypoglycemic drugs; Z87.891 Personal history of nicotine dependence; Z80.9 Family history of malignant neoplasm, unspecified
CPT/HCPCS: 36415; 49083; P9047; J1642

== ENCOUNTER 2022-01-31 12:08 | Day surgery (SDC) | payer MEDICARE ==
[2022-01-31 12:58] LABS: Mean Platelet Volume 7.9; Platelet Count 234 k/uL (150-450)
[2022-01-31] MEDS: ALBUMIN HUMAN 25% 50 ML in EMPTY BAG 1 BAG IVPB SCH ×4 (13:10→14:40)
[2022-01-31] MEDS ORDERED: LIDOCAINE 1% PF 10 MG/ML (5 ML AMP) SQ ONE (13:15)
[2022-01-31 13:17] LABS: INR 1.1 (<1.2); Prothrombin Time 12.1 sec (9.0-12.0)
[2022-01-31 13:21] VITALS: RESP 16; TEMP 98
[2022-01-31 15:05] VITALS: BP 129/63; PULSE 80
--- NOTE | 2022-01-31 15:34 | US ---
EXAMINATION TYPE: US paracentesis abd w/image DATE OF EXAM: 01/31/2022 COMPARISON: NONE HISTORY: Ascites. PROCEDURE: Maximal barrier technique was utilized. The skin overlying a suitable pocket of fluid was localized with ultrasound and the overlying skin was prepped and draped. Ultrasound was utilized with sterile technique. Lidocaine was used for local anesthesia and a skin saurabh made with a scalpel. Catheter was advanced under direct ultrasound guidance into a suitable pocket of fluid and approximately 7.1 liter s of ascites fluid were removed. Catheter was withdrawn and hemostasis achieved. There is no immedi ate complication; the patient is discharged in stable condition. IMPRESSION: STATUS POST ULTRASOUND GUIDED PARACENTESIS FOR PALLIATION OF ASCITES. THIS PROCEDURE WA S PERFORMED BY THE UNDERSIGNED.
== END 2022-01-31 15:06 | disposition home or self-care (01) ==
LOC: RADPROMAIN 12:08
PROVIDERS: ATTEND Internal Medicine Gastroenterology
DX: K70.31 Alcoholic cirrhosis of liver with ascites (principal); Z88.0 Allergy status to penicillin; Z88.8 Allergy status to other drugs, medicaments and biological substances; Z88.2 Allergy status to sulfonamides; Z88.3 Allergy status to other anti-infective agents; Z88.1 Allergy status to other antibiotic agents; Z91.030 Bee allergy status; Z91.038 Other insect allergy status; Z91.018 Allergy to other foods; Z91.013 Allergy to seafood; Z91.09 Other allergy status, other than to drugs and biological substances; Z79.890 Hormone replacement therapy; Z79.899 Other long term (current) drug therapy; Z79.84 Long term (current) use of oral hypoglycemic drugs; Z87.891 Personal history of nicotine dependence; Z80.9 Family history of malignant neoplasm, unspecified
CPT/HCPCS: 82565; 82947; 85049; 85610; 49083; J2001; P9047; J1642

== ENCOUNTER 2022-02-05 12:10 | Day surgery (SDC) | payer MEDICARE ==
[2022-02-05 13:01] LABS: Mean Platelet Volume 8.3; Platelet Count 242 k/uL (150-450)
[2022-02-05] MEDS: ALBUMIN HUMAN 25% 50 ML in EMPTY BAG 1 BAG IVPB SCH ×4 (13:10→14:23)
[2022-02-05 13:13] LABS: Calcium 8.2 mg/dL (8.4-10.2); Magnesium 2.2 mg/dL (1.6-2.3); Potassium 4.9 mmol/L (3.5-5.1)
[2022-02-05 13:14] LABS: INR 1.1 (<1.2); Prothrombin Time 12.1 sec (9.0-12.0)
[2022-02-05 15:45] VITALS: BP 137/69; PULSE 78; RESP 16; TEMP 98.1
--- NOTE | 2022-02-06 09:17 | US ---
Ultrasound-guided paracentesis. DATE OF EXAM: 02/05/2022 CLINICAL HISTORY: Ascites The procedure was discussed with the patient. The risks, complications, benefits, and alternatives we re discussed and any questions were answered. Informed consent was obtained. The patient was placed s upine on the ultrasound table and prepped and draped in the usual sterile fashion. All elements of maximal barrier technique were utilized. Under ultrasound guidance, access into the left lower quadrant was obtained, via the paracentesis catheter system and direct ultrasound guidance . Approximately 5.4 liters of straw-colored fluid was removed. The patient was stable throughout the pr ocedure and remained stable upon discharge from Department of Radiology. IMPRESSION: Successful paracentesis under ultrasound guidance.
== END 2022-02-05 14:50 | disposition home or self-care (01) ==
LOC: RADPROMAIN 12:10
PROVIDERS: ATTEND Internal Medicine Gastroenterology
DX: K70.31 Alcoholic cirrhosis of liver with ascites (principal); Z88.0 Allergy status to penicillin; Z88.8 Allergy status to other drugs, medicaments and biological substances; Z88.3 Allergy status to other anti-infective agents; Z88.2 Allergy status to sulfonamides; Z88.1 Allergy status to other antibiotic agents; Z91.030 Bee allergy status; Z91.038 Other insect allergy status; Z91.018 Allergy to other foods; Z91.013 Allergy to seafood; Z91.09 Other allergy status, other than to drugs and biological substances; Z79.890 Hormone replacement therapy; Z79.899 Other long term (current) drug therapy; Z79.84 Long term (current) use of oral hypoglycemic drugs; Z87.891 Personal history of nicotine dependence; Z80.9 Family history of malignant neoplasm, unspecified
CPT/HCPCS: 80048; 83735; 85049; 85610; 49083; P9047; J1642

== ENCOUNTER 2022-02-13 08:21 | Day surgery (SDC) | payer MEDICARE ==
[2022-02-13 09:06] VITALS: RESP 16; TEMP 98.5
[2022-02-13 09:19] LABS: INR 1.2 (<1.2); Mean Platelet Volume 8.2; Platelet Count 215 k/uL (150-450); Prothrombin Time 12.4 sec (9.0-12.0)
[2022-02-13] MEDS: ALBUMIN HUMAN 25% 50 ML in EMPTY BAG 1 BAG IVPB SCH ×4 (09:57→11:12)
[2022-02-13 11:03] VITALS: BP 136/69; PULSE 73
--- NOTE | 2022-02-13 12:20 | US ---
EXAMINATION TYPE: US paracentesis abd w/image DATE OF EXAM: 02/13/2022 CLINICAL HISTORY: Ascites The procedure was discussed with the patient. The risks, complications, benefits, and alternatives we re discussed and any questions were answered. Informed consent was obtained. The patient was placed s upine on the ultrasound table and prepped and draped in the usual sterile fashion. All elements of maximal barrier technique were utilized. Under ultrasound guidance, access into the right lower quadrant was obtained, via the paracentesis catheter system and direct ultrasound guidanc e. Approximately 6.7 liters of straw-colored fluid was removed. The patient was stable throughout the pr ocedure and remained stable upon discharge from Department of Radiology. IMPRESSION: Successful therapeutic paracentesis under ultrasound guidance.
== END 2022-02-13 11:18 | disposition home or self-care (01) ==
LOC: RADPROMAIN 08:21
PROVIDERS: ATTEND Internal Medicine Gastroenterology
DX: K70.31 Alcoholic cirrhosis of liver with ascites (principal); Z88.1 Allergy status to other antibiotic agents; Z88.3 Allergy status to other anti-infective agents; Z91.030 Bee allergy status; Z91.038 Other insect allergy status; Z88.0 Allergy status to penicillin; Z91.013 Allergy to seafood; Z88.2 Allergy status to sulfonamides; Z88.8 Allergy status to other drugs, medicaments and biological substances; Z91.018 Allergy to other foods; Z91.09 Other allergy status, other than to drugs and biological substances; Z79.890 Hormone replacement therapy; Z79.899 Other long term (current) drug therapy; Z87.891 Personal history of nicotine dependence; Z80.9 Family history of malignant neoplasm, unspecified
CPT/HCPCS: 82565; 82947; 85049; 85610; 49083; P9047

== ENCOUNTER 2022-02-21 12:04 | Day surgery (SDC) | payer MEDICARE ==
[2022-02-21 12:39] VITALS: RESP 16; TEMP 98.3
[2022-02-21 12:50] LABS: Mean Platelet Volume 8.1; Platelet Count 228 k/uL (150-450)
[2022-02-21 12:58] LABS: INR 1.1 (<1.2)
[2022-02-21] MEDS: ALBUMIN HUMAN 25% 50 ML in EMPTY BAG 1 BAG IVPB SCH ×3 (13:45→14:16)
[2022-02-21 15:00] VITALS: BP 128/73; PULSE 75
--- NOTE | 2022-02-21 16:19 | US ---
EXAMINATION TYPE: US paracentesis abd w/image DATE OF EXAM: 02/21/2022 COMPARISON: NONE HISTORY: Ascites. PROCEDURE: Maximal barrier technique was utilized. The skin overlying a suitable pocket of fluid was localized with ultrasound and the overlying skin was prepped and draped. Ultrasound was utilized with sterile technique. Lidocaine was used for local anesthesia and a skin saurabh made with a scalpel. Catheter was advanced under direct ultrasound guidance into a suitable pocket of fluid and approximately 7.8 liter s of ascites fluid were removed. Catheter was withdrawn and hemostasis achieved. There is no immedi ate complication; the patient is discharged in stable condition. IMPRESSION: STATUS POST ULTRASOUND GUIDED PARACENTESIS FOR PALLIATION OF ASCITES. THIS PROCEDURE WA S PERFORMED BY THE UNDERSIGNED.
== END 2022-02-21 15:30 | disposition home or self-care (01) ==
LOC: RADPROMAIN 12:04
PROVIDERS: ATTEND Internal Medicine Gastroenterology
DX: K70.31 Alcoholic cirrhosis of liver with ascites (principal); N18.31 Chronic kidney disease, stage 3a
CPT/HCPCS: 82565; 82947; 85049; 85610; 49083; P9047; J1642; 76770

== ENCOUNTER → 2022-02-21 | Outpatient (CLI) | payer MEDICARE ==
--- NOTE | 2022-02-24 07:18 | US ---
EXAMINATION TYPE: US kidneys/renal and bladder DATE OF EXAM: 02/21/2022 COMPARISON: NONE CLINICAL HISTORY: 81-year-old female N18.31 CKD STAGE 3A. TECHNIQUE: Multiple sonographic images of the kidneys and bladder are obtained. FINDINGS: EXAM MEASUREMENTS: Right Kidney: 9.5 x 4.6 x 5.1 cm Left Kidney: 10.6 x 4.1 x 4.3 cm [employer] notes: Thinned cortex bilaterally. Right Kidney: No hydronephrosis or masses seen Left Kidney: No hydronephrosis or masses seen Bladder: Under distention limits evaluation. Incidental: Splenomegaly at 19.3 cm. Subtle contour nodularity of the liver. IMPRESSION: 1. No hydronephrosis. 2. Incidental suspected underlying cirrhosis. Also, splenomegaly at 19.3 cm.
== END | disposition home or self-care (01) ==
LOC: RADUSWWP 13:14
PROVIDERS: ATTEND Internal Medicine
DX: N18.31 Chronic kidney disease, stage 3a (principal); R16.1 Splenomegaly, not elsewhere classified
CPT/HCPCS: 76770

== ENCOUNTER → 2022-02-28 | Day surgery (SDC) | payer MEDICARE ==
[~2022-02-28] MED LIST changes: +ALBUMIN HUMAN 25% 50 ML in EMPTY BAG 1 BAG IVPB ONE; -LACTATED RINGERS 1,000 ML IV SCH; -LIDOCAINE 1% (10MG/ML) FOR IV START INTRADERMA PRN
[2022-02-28 13:06] VITALS: TEMP 97.8
[2022-02-28] MEDS: ALBUMIN HUMAN 25% 50 ML in EMPTY BAG 1 BAG IVPB SCH ×3 (14:24→14:50)
[2022-02-28 15:34] VITALS: BP 131/61; PULSE 65; RESP 16
--- NOTE | 2022-02-28 15:51 | US ---
EXAMINATION TYPE: US paracentesis abd w/image DATE OF EXAM: 02/28/2022 COMPARISON: NONE HISTORY: Ascites. PROCEDURE: Maximal barrier technique was utilized. The skin overlying a suitable pocket of fluid was localized with ultrasound and the overlying skin was prepped and draped. Ultrasound was utilized with sterile technique. Lidocaine was used for local anesthesia and a skin saurabh made with a scalpel. Catheter was advanced under direct ultrasound guidance into a suitable pocket of fluid and approximately 7.3 liter s of ascites fluid were removed. Catheter was withdrawn and hemostasis achieved. There is no immedi ate complication; the patient is discharged in stable condition. IMPRESSION: STATUS POST ULTRASOUND GUIDED PARACENTESIS FOR PALLIATION OF ASCITES. THIS PROCEDURE WA S PERFORMED BY THE UNDERSIGNED.
== END ==
LOC: RADPROMAIN 12:08
PROVIDERS: ATTEND Internal Medicine Gastroenterology
DX: K70.31 Alcoholic cirrhosis of liver with ascites (principal); Z88.1 Allergy status to other antibiotic agents; Z88.2 Allergy status to sulfonamides; Z88.3 Allergy status to other anti-infective agents; Z91.030 Bee allergy status; Z91.038 Other insect allergy status; Z88.0 Allergy status to penicillin; Z91.013 Allergy to seafood; Z88.8 Allergy status to other drugs, medicaments and biological substances; Z91.018 Allergy to other foods; Z91.09 Other allergy status, other than to drugs and biological substances; Z79.899 Other long term (current) drug therapy; Z79.890 Hormone replacement therapy; Z79.84 Long term (current) use of oral hypoglycemic drugs; Z87.891 Personal history of nicotine dependence; Z80.9 Family history of malignant neoplasm, unspecified
CPT/HCPCS: 82565; 82947; 49083; P9047; J1642

== ENCOUNTER 2022-03-07 12:07 | Day surgery (SDC) | payer MEDICARE ==
[2022-03-07 13:11] LABS: Mean Platelet Volume 8.1; Platelet Count 255 k/uL (150-450)
[2022-03-07 13:32] LABS: INR 1.3 (<1.2); Prothrombin Time 13.2 sec (9.0-12.0)
[2022-03-07 13:41] VITALS: TEMP 98.4
[2022-03-07] MEDS: ALBUMIN HUMAN 25% 50 ML in EMPTY BAG 1 BAG IVPB SCH ×4 (13:44→15:03)
[2022-03-07 14:12] VITALS: RESP 16
[2022-03-07 15:35] VITALS: BP 127/63; PULSE 72
--- NOTE | 2022-03-11 08:38 | US ---
Ultrasound-guided paracentesis. DATE OF EXAM: 03/07/2022 CLINICAL HISTORY: Ascites The procedure was discussed with the patient. The risks, complications, benefits, and alternatives we re discussed and any questions were answered. Informed consent was obtained. The patient was placed s upine on the ultrasound table and prepped and draped in the usual sterile fashion. All elements of maximal barrier technique were utilized. Under ultrasound guidance, access into the left lower quadrant was obtained, via the paracentesis catheter system and direct ultrasound guidance . Approximately 6.9 liters of straw-colored fluid was removed. The patient was stable throughout the pr ocedure and remained stable upon discharge from Department of Radiology. IMPRESSION: Successful paracentesis under ultrasound guidance.
== END 2022-03-07 15:20 | disposition home or self-care (01) ==
LOC: RADPROMAIN 12:07
PROVIDERS: ATTEND Internal Medicine Gastroenterology
DX: K70.31 Alcoholic cirrhosis of liver with ascites (principal); Z88.0 Allergy status to penicillin; Z88.8 Allergy status to other drugs, medicaments and biological substances; Z88.3 Allergy status to other anti-infective agents; Z88.2 Allergy status to sulfonamides; Z91.030 Bee allergy status; Z91.038 Other insect allergy status; Z91.013 Allergy to seafood; Z91.018 Allergy to other foods; Z91.09 Other allergy status, other than to drugs and biological substances; Z79.890 Hormone replacement therapy; Z79.899 Other long term (current) drug therapy; Z79.84 Long term (current) use of oral hypoglycemic drugs; Z87.891 Personal history of nicotine dependence; Z80.9 Family history of malignant neoplasm, unspecified
CPT/HCPCS: 82565; 82947; 85049; 85610; 49083; P9047; J1642

== ENCOUNTER 2022-03-09 20:33 | Emergency (ER) | payer MEDICARE ==
[2022-03-09 21:14] VITALS: BP 146/93; PULSE 100; RESP 18; TEMP 98.7
[2022-03-09] MEDS ORDERED: HYDROmorphone 1 MG/ML 1 ML SYRINGE IM STA (22:53)
[2022-03-09] MEDS ORDERED: ORPHENADRINE 30 MG/ML 2 ML VIAL IM STA (22:53)
--- NOTE | 2022-03-09 23:09 | ED ---
Back Pain HPI - General Chief Complaint: Back Pain/Injury Stated Complaint: back pain Time Seen by Provider: 03/09/22 21:21 Source: patient, RN notes reviewed Limitations: no limitations - History of Present Illness Initial Comments: This is a pleasant 81-year-old female with chronic low back pain. Patient on contract with Dr. Flores. Patient takes hydrocodone/acetaminophen at home. Patient states that her back pain has been present for well over one year. Patient sees her back pain is getting worse. Patient is able to ambulate but states this increases the pain. Bending and twisting also exacerbates the pain. She denies any changes in bowel movements or urination. Patient also has a problem with chronic diarrhea. Patient has had no recent fall. No fever. No recent instrumentation. No direct trauma. No rashes or lesions. No erythema. Patient has no immunosuppression. Patient denying any distal pain. Patient states the pain is sharp, across her lower back, about exacerbating factors. No headache, no fever or chills, no changes in vision or hearing, no sore throat or difficulty with speech, no neck pain, no chest pain or shortness of breath, no abdominal pain, no nausea or vomiting, no changes in urination or bowel movements, no numbness or tingling, no extremity pain, no skin rashes or lesions. Past medical, surgical, social, and family history reviewed. Patient specifically asking for something for pain in addition to her home pain medications. MD Complaint: back pain - Related Data Home Medications Medication Instructions Recorded Confirmed Levothyroxine Sodium [Synthroid] 25 mcg PO DAILY@0700 03/23/14 02/28/22 Montelukast [Singulair] 10 mg PO HS 03/23/14 02/28/22 Oxybutynin Chloride [Ditropan XL] 10 mg PO HS 03/23/14 02/28/22 EPINEPHrine (Auto Inject) [Epipen] 0.3 mg IM ONCE PRN 04/13/20 02/28/22 Cholecalciferol [Vitamin D3 (25 1.5 mg PO WEEKLY 08/31/20 03/07/22 Mcg = 1000 Iu)] Midodrine [ProAmatine] 2.5 mg PO AC-TID 09/10/20 02/28/22 Escitalopram [Lexapro] 5 mg PO HS 10/12/20 02/28/22 sitaGLIPtin [Januvia] 50 mg PO DAILY 12/21/20 02/28/22 Furosemide [Lasix] 40 mg PO DAILY 01/22/21 02/28/22 Spironolactone [Aldactone] 25 mg PO DAILY 01/22/21 02/28/22 Thiamine [Vitamin B-1] 100 mg PO HS 01/22/21 02/28/22 Ferrous Sulfate [Iron (65 MG 325 mg PO DAILY 03/22/21 02/28/22 Elemental)] hydrOXYzine HCL [Atarax] 10 mg PO HS 03/22/21 02/28/22 HYDROcodone/APAP 7.5-325MG [[place] 1 tab PO Q6HR PRN 04/05/21 02/28/22 7.5-325] Simethicone [Gas-X] 125 mg PO DAILY PRN 11/01/21 02/28/22 Furosemide [Lasix] 20 mg PO HS 01/31/22 02/28/22 allopurinoL [Zyloprim] 100 mg PO DAILY 01/31/22 02/28/22 Previous Rx's Medication Instructions Recorded Folic Acid 1 mg PO DAILY@1200 30 Days #30 tab 09/03/20 Allergies Allergy/AdvReac Type Severity Reaction Status Date / Time venom-wasp [Wasp Venom] Allergy Severe Swelling Verified 03/09/22 21:14 adhesive Allergy Unknown Rash/Hives Verified 03/09/22 21:14 amoxicillin [Amoxicillin] Allergy Unknown Rash/Hives, Verified 03/09/22 21:14 itching fenofibrate nanocrystallized Allergy Unknown Rash/Hives,joint Verified 03/09/22 21:14 [From Tricor] pain fenofibrate,micronized Allergy Unknown Rash/Hives, Verified 03/09/22 21:14 [From Tricor] joint pain hydrochlorothiazide Allergy Unknown Rash/Hives Verified 03/09/22 21:14 Neuromuscular Blockers, Allergy Unknown Rash/Hives Verified 03/09/22 21:14 Steroidal [Steroidal Neuromuscular Blockers] Penicillins Allergy Unknown Rash/Hives, Verified 03/09/22 21:14 red skin shellfish derived Allergy Unknown SKIN RED Verified 03/09/22 21:14 AND WARM simvastatin [From Zocor] Allergy Unknown Rash/Hives, Verified 03/09/22 21:14 joint pain Ylkijoz-[id number]-ObA Reductase Allergy Unknown Rash/Hives, Verified 03/09/22 21:14 Inhibitor joint pain [Pzmdnwh-Fdn-Nwz Reductase Inhibitor] venom-honey bee Allergy Unknown Swelling Verified 03/09/22 21:14 [bee venom (honey bee)] cat dander Allergy Rash/Hives Verified 03/09/22 21:14 ciprofloxacin HCl Allergy Unknown Verified 03/09/22 21:14 [From Cipro] sulfamethoxazole Allergy Rash/Hives Verified 03/09/22 21:14 talc Allergy Rash/Hives Verified 03/09/22 21:14 walnut Allergy Rash/Hives Verified 03/09/22 21:14 clarithromycin AdvReac warm and Verified 03/09/22 21:14 flushed minocycline AdvReac warm and Verified 03/09/22 21:14 flushed prednisone AdvReac Nausea Verified 03/09/22 21:14 soy AdvReac Nausea & Verified 03/09/22 21:14 Vomiting Review of Systems ROS Statement: Those systems with pertinent positive or pertinent negative responses have been documented in the HPI. ROS Other: All systems not noted in ROS Statement are negative. Past Medical History Past Medical History: Atrial Fibrillation, Asthma, Cancer, Diabetes Mellitus, Fibromyalgia, GERD/Reflux, Hyperlipidemia, Hypertension, Liver Disease, Osteoarthritis (OA), Pulmonary Embolus (PE), Thyroid Disorder Additional Past Medical History / Comment(s): Pt recently admitted to [facility] on 08/14/20 with decompensated liver cirrhosis 2ndary to [facility]ONSO with ascities/acute diarrhea and anemia with transfusion. Other hx: Nonalcoholic fatty liver, liver cirrhosis, ascities with multiple paracentesis and has albumin infusions, esophageal varicies with banding, NIDDM type II, neuropathy bilateral legs/feet, spinal stenosis/low back pain with R side radiculopathy and lately has had pain down L leg, recent bilateral lower leg edema, PE after leg fracture, overactive bladder, hypothyroid, sinus problems, vertigo, bilateral macular degeneration,skin cancer, cellulits to left lower extemity on antibiotics 11/13/20 History of Any Multi-Drug Resistant Organisms: None Reported Past Surgical History: Adenoidectomy, Appendectomy, Back Surgery, Breast Surgery, Hysterectomy, Joint Replacement, Orthopedic Surgery, Tonsillectomy Additional Past Surgical History / Comment(s): Multiple large volume par acentesis procedures, lower back and cervical fusions, bilateral total knees, bilateral total shoulders, bilateral carpal tunnel releases, bilateral hand trigger finger releases, R foot bone spur removed, R leg fracture/hardware removed, R breast fatty tumor removed, EGD with esophageal varicies banded, colonoscopy, skin cancer removed, bilateral cataracts removed., right chest mediport Past Anesthesia/Blood Transfusion Reactions: Motion Sickness, Postoperative Nausea & Vomiting (PONV) Additional Past Anesthesia/Blood Transfusion Reaction / Comment(s): previous blood transfusions at [facility] Past Psychological History: No Psychological Hx Reported Smoking Status: Former smoker Past Alcohol Use History: None Reported Past Drug Use History: None Reported - Past Family History Mother History Unknown: Yes Family Medical History: No Reported History Additional Family Medical History / Comment(s): Mother was healthy and lived to be 87yrs old. Father History Unknown: Yes Additional Family Medical History / Comment(s): Father in a MVA Daughter(s) Family Medical History: Cancer General Exam - General Exam Comments Initial Comments: Deconditioned appearing 81-year-old female in no acute distress. Vital signs reviewed, patient afebrile. Cranial nerves II through XII are intact. Patient does not appear to be ill or toxic. Limitations: no limitations General appearance: alert, in no apparent distress Head exam: Present: atraumatic, normocephalic, normal inspection Eye exam: Present: normal appearance, PERRL, EOMI. Absent: scleral icterus, conjunctival injection, periorbital swelling ENT exam: Present: normal exam, mucous membranes moist Neck exam: Present: normal inspection, full ROM. Absent: tenderness, meningismus, lymphadenopathy Respiratory exam: Present: normal lung sounds bilaterally. Absent: respiratory distress, wheezes, rales, rhonchi, stridor, chest wall tenderness, accessory muscle use, decreased breath sounds, prolonged expiratory Cardiovascular Exam: Present: regular rate, normal rhythm, normal heart sounds. Absent: systolic murmur, diastolic murmur, rubs, gallop, clicks GI/Abdominal exam: Present: soft, normal bowel sounds. Absent: distended, tenderness, guarding, rebound, rigid Extremities exam: Present: normal inspection, full ROM, normal capillary refill. Absent: tenderness, pedal edema, joint swelling, calf tenderness Back exam: Present: normal inspection, tenderness, paraspinal tenderness. Absent: full ROM (Limited by pain), CVA tenderness (R), CVA tenderness (L), muscle spasm, vertebral tenderness, rash noted Expanded Back exam: Present: other (No saddle anesthesia). Absent: saddle anesthesia Back exam: Negative Straight Leg Raising: Left, Right Neurological exam: Present: alert, oriented X3, CN II-XII intact, normal gait (Normal but guarded), reflexes normal. Absent: altered, abnormal gait, motor sensory deficit Psychiatric exam: Present: normal affect, normal mood. Absent: depressed, anxious, flat affect Skin exam: Present: warm, dry, intact, normal color. Absent: rash, cyanosis, diaphoretic, erythema, urticaria, petechiae, pallor, mottled, abrasion Course Vital Signs 03/09/22 21:12 Temperature 98.7 F Pulse Rate 100 Respiratory 18 Rate Blood Pressure 146/93 O2 Sat by Pulse 98 Oximetry Medical Decision Making - Medical Decision Making Patient presents to the emergency department with acute assessment chronic low back pain. Patient does not appear to be ill or toxic. Patient has no red flags consistent with cauda equina syndrome. Patient has no direct trauma. I do not believe the patient needs any imaging at this time. We'll give the patient pain medication. Patient can follow-up with her pain management physician for any further pain control. Patient was told to return to the ER for any signs or symptoms worsen. Told to return immediately if any other problems arise. All questions answered. Treatment plan discussed. Patient in agreement Every effort has been made to ensure accuracy of this dictation. However, due to the limitations of electronic medical records and dictation devices, errors in charting still occur. Supervising physician Dr. Werner Disposition Clinical Impression: Acute exacerbation of chronic low back pain, Mechanical back pain Disposition: HOME SELF-CARE Condition: Good Instructions (If sedation given, give patient instructions): Chronic Back Pain (DC) Additional Instructions: Follow-up with your regular physician as directed. Return to the ER immediately if any symptoms worsen, new symptoms arise, or any other problems develop. Obtain any further pain control medication from her pain management physician, Tana Flores Is patient prescribed a controlled substance at d/c from ED?: No Referrals: Shea Amezcua MD [Primary Care Provider] - 1-2 days Rosita Espinal DO [Doctor of Osteopathic Medicine] - As Soon As Possible Rocael Flores MD [STAFF PHYSICIAN] - As Soon As Possible Time of Disposition: 23:08
== END 2022-03-09 23:44 | disposition home or self-care (01) ==
LOC: EC 20:33
DX: M54.50 Low back pain, unspecified (principal); J45.909 Unspecified asthma, uncomplicated; E11.9 Type 2 diabetes mellitus without complications; E78.5 Hyperlipidemia, unspecified; I10 Essential (primary) hypertension; E07.9 Disorder of thyroid, unspecified; Z79.899 Other long term (current) drug therapy; Z79.83 Long term (current) use of bisphosphonates; K21.9 Gastro-esophageal reflux disease without esophagitis; Z87.891 Personal history of nicotine dependence; Z91.030 Bee allergy status; Z91.040 Latex allergy status; Z88.0 Allergy status to penicillin; Z88.8 Allergy status to other drugs, medicaments and biological substances; Z91.013 Allergy to seafood; Z88.2 Allergy status to sulfonamides
CPT/HCPCS: 99283; 96372; J2360; J1170

== ENCOUNTER 2022-03-15 16:13 | Emergency (ER) | payer MEDICARE ==
[2022-03-15] MEDS ORDERED: ASPIRIN 81 MG PO STA (16:26)
[2022-03-15] MEDS ORDERED: HYDROmorphone 0.5 MG/0.5 ML SYRINGE IVP STA ×2 (16:26→20:26)
--- NOTE | 2022-03-15 16:49 | ED ---
General Adult HPI - General Chief complaint: Chest Pain Stated complaint: ABD PAIN Time Seen by Provider: 03/15/22 16:15 Source: patient, EMS, RN notes reviewed, old records reviewed Mode of arrival: EMS Limitations: no limitations - History of Present Illness Initial comments: Patient is an 81-year-old female with past medical history remarkable for A. fib, asthma, cancer, diabetes, chronic liver disease with recurrent ascites that receives Sever Thursday, chronic chest pain, chronic back pain who presents emergency Department complaining of worsening of chronic symptoms. She is complaining of worsening chronic back pain with some shooting sensation down her left leg that has been present for approximately one week. States the shooting sensation that is often. Complains of the pain beginning in her lower lumbar spine. Does have a history of back surgeries. Is also complaining of epigastric abdominal discomfort with spread up her sternum into her chest. States this is also chronic, however it somewhat worse at this time. Denies any nausea or vomiting. Denies any diarrhea. Denies any constipation. Denies any urinary complaints. Did receive her ascites tapped yesterday. Denies any fevers, chills, sick contacts. Denies any saddle anesthesias. Denies any urinary or bowel incontinence or retention. Denies any lower extremity weakness. Presents for further evaluation at this time over concern for chronic chest pain, chronic back pain. Patient was recently switched from her [place] to oxycodone which she states somewhat controls her pain.Describes the chest pain as a squeezing sensation. She states this is chronic and it comes and goes. Has been worse over the last few days. Seems to stay in the mid- substernal region. - Related Data Home Medications Medication Instructions Recorded Confirmed Levothyroxine Sodium [Synthroid] 25 mcg PO DAILY@0700 03/23/14 03/14/22 Montelukast [Singulair] 10 mg PO HS 03/23/14 03/14/22 Oxybutynin Chloride [Ditropan XL] 10 mg PO HS 03/23/14 03/14/22 EPINEPHrine (Auto Inject) [Epipen] 0.3 mg IM ONCE PRN 04/13/20 03/14/22 Cholecalciferol [Vitamin D3 (25 1.5 mg PO WEEKLY 08/31/20 03/14/22 Mcg = 1000 Iu)] Midodrine [ProAmatine] 2.5 mg PO AC-TID 09/10/20 02/28/22 Escitalopram [Lexapro] 5 mg PO HS 10/12/20 03/14/22 sitaGLIPtin [Januvia] 50 mg PO DAILY 12/21/20 03/14/22 Furosemide [Lasix] 40 mg PO DAILY 01/22/21 03/14/22 Spironolactone [Aldactone] 25 mg PO DAILY 01/22/21 03/14/22 Thiamine [Vitamin B-1] 100 mg PO HS 01/22/21 03/14/22 Ferrous Sulfate [Iron (65 MG 325 mg PO DAILY 03/22/21 03/14/22 Elemental)] hydrOXYzine HCL [Atarax] 10 mg PO HS 03/22/21 03/14/22 Simethicone [Gas-X] 125 mg PO DAILY PRN 11/01/21 03/14/22 Furosemide [Lasix] 20 mg PO HS 01/31/22 03/14/22 allopurinoL [Zyloprim] 100 mg PO DAILY 01/31/22 03/14/22 oxyCODONE-APAP 10-325MG [Percocet 1 QID 03/14/22 10-325 mg] predniSONE 10 mg PO DAILY 03/14/22 03/14/22 Previous Rx's Medication Instructions Recorded Folic Acid 1 mg PO DAILY@1200 30 Days #30 tab 09/03/20 Cyclobenzaprine [Flexeril] 10 mg PO BID PRN 10 Days #20 tab 03/15/22 Lidocaine 5% Patch [Lidoderm 5% 1 patch TOPICAL DAILY PRN 10 Days 03/15/22 Patch] #10 patch Allergies Allergy/AdvReac Type Severity Reaction Status Date / Time venom-wasp [Wasp Venom] Allergy Severe Swelling Verified 03/09/22 21:14 adhesive Allergy Unknown Rash/Hives Verified 03/09/22 21:14 amoxicillin [Amoxicillin] Allergy Unknown Rash/Hives, Verified 03/09/22 21:14 itching fenofibrate nanocrystallized Allergy Unknown Rash/Hives,joint Verified 03/09/22 21:14 [From Tricor] pain fenofibrate,micronized Allergy Unknown Rash/Hives, Verified 03/15/22 16:24 [From Tricor] joint pain hydrochlorothiazide Allergy Unknown Rash/Hives Verified 03/15/22 16:24 Neuromuscular Blockers, Allergy Unknown Rash/Hives Verified 03/15/22 16:24 Steroidal [Steroidal Neuromuscular Blockers] Penicillins Allergy Unknown Rash/Hives, Verified 03/15/22 16:24 red skin shellfish derived Allergy Unknown SKIN RED Verified 03/15/22 16:24 AND WARM simvastatin [From Zocor] Allergy Unknown Rash/Hives, Verified 03/15/22 16:24 joint pain Lsedvwy-SIP-ZfN Reductase Allergy Unknown Rash/Hives, Verified 03/15/22 16:24 Inhibitor joint pain [Ciijork-Foi-Lvt Reductase Inhibitor] venom-honey bee Allergy Unknown Swelling Verified 03/15/22 16:24 [bee venom (honey bee)] cat dander Allergy Rash/Hives Verified 03/15/22 16:24 ciprofloxacin HCl Allergy Unknown Verified 03/15/22 16:24 [From Cipro] sulfamethoxazole Allergy Rash/Hives Verified 03/15/22 16:24 talc Allergy Rash/Hives Verified 03/15/22 16:24 walnut Allergy Rash/Hives Verified 03/15/22 16:24 clarithromycin AdvReac warm and Verified 03/15/22 16:24 flushed minocycline AdvReac warm and Verified 03/15/22 16:24 flushed prednisone AdvReac Nausea Verified 03/15/22 16:24 soy AdvReac Nausea & Verified 03/15/22 16:24 Vomiting Review of Systems ROS Statement: Those systems with pertinent positive or pertinent negative responses have been documented in the HPI. Review of Systems: CONST: Denies fever EYES: Denies blurry vision ENT: Denies nasal congestion C/V: Endorses chest pain RESP: Denies shortness of breath GI: Endorses abdominal pain, epigastric : Denies dysuria SKIN: Denies rash. MSK: Endorses chronic back pain NEURO: Denies headache ROS Other: All systems not noted in ROS Statement are negative. Past Medical History Past Medical History: Atrial Fibrillation, Asthma, Cancer, Diabetes Mellitus, Fibromyalgia, GERD/Reflux, Hyperlipidemia, Hypertension, Liver Disease, Osteoarthritis (OA), Pulmonary Embolus (PE), Thyroid Disorder Additional Past Medical History / Comment(s): Pt recently admitted to [facility] on 08/14/20 with decompensated liver cirrhosis 2ndary to ALFONSO with ascities/acute diarrhea and anemia with transfusion. Other hx: Nonalcoholic fatty liver, liver cirrhosis, ascities with multiple paracentesis and has albumin infusions, esophageal varicies with banding, NIDDM type II, neuropathy bilateral legs/feet, spinal stenosis/low back pain with R side radiculopathy and lately has had pain down L leg, recent bilateral lower leg edema, PE after leg fracture, overactive bladder, hypothyroid, sinus problems, vertigo, bilateral macular degeneration,skin cancer, cellulits to left lower extemity on antibiotics 11/13/20 History of Any Multi-Drug Resistant Organisms: None Reported Past Surgical History: Adenoidectomy, Appendectomy, Back Surgery, Breast Surgery, Hysterectomy, Joint Replacement, Orthopedic Surgery, Tonsillectomy Additional Past Surgical History / Comment(s): Multiple large volume paracentesis procedures, lower back and cervical fusions, bilateral total knees, bilateral total shoulders, bilateral carpal tunnel releases, bilateral hand trigger finger releases, R foot bone spur removed, R leg fracture/hardware removed, R breast fatty tumor removed, EGD with esophageal varicies banded, colonoscopy, skin cancer removed, bilateral cataracts removed., right chest mediport Past Anesthesia/Blood Transfusion Reactions: Motion Sickness, Postoperative Nausea & Vomiting (PONV) Additional Past Anesthesia/Blood Transfusion Reaction / Comment(s): previous blood transfusions at [facility] Past Psychological History: No Psychological Hx Reported Smoking Status: Former smoker Past Alcohol Use History: None Reported Past Drug Use History: None Reported - Past Family History Mother History Unknown: Yes Family Medical History: No Reported History Additional Family Medical History / Comment(s): Mother was healthy and lived to be 87yrs old. Father History Unknown: Yes Additional Family Medical History / Comment(s): Father in a MVA Daughter(s) Family Medical History: Cancer General Exam - General Exam Comments Initial Comments: General: Appears in no acute distress. HEAD: Normal with no signs of head trauma. EYES: PERRLA, EOMI, conjunctiva normal, no discharge. ENT: Hearing grossly intact, normal oropharynx. RESPIRATORY: Clear breath sounds bilaterally. No wheezes, rales, or rhonchi. C/V: Regular rate and rhythm. S1 and S2 auscultated, no edema, peripheral pulses 2+ and intact throughout ABD: Abdomen is somewhat distended. No obvious tenderness to palpation. Soft otherwise. States is typical for her. No rebound tenderness. No guarding. No peritoneal signs. EXT: Normal range of motion, no obvious deformity. Midline lumbar spine tenderness to palpation. SKIN: No rashes or lesions observed on exposed skin. NEURO: Alert and oriented 4. No focal deficits. Good lower extremity strength. No sensory deficits appreciated. Limitations: no limitations Course Vital Signs 03/15/22 03/15/22 03/15/22 16:15 19:57 22:27 Temperature 98.6 F Pulse Rate 87 93 86 Respiratory 20 19 18 Rate Blood Pressure 123/84 121/71 144/80 O2 Sat by Pulse 98 99 95 Oximetry Medical Decision Making - Medical Decision Making Based on the patient's presentation and physical exam, patient is presenting with chronic back pain, chronic chest pain, chronic abdominal pain presents emergency Department complaining of chronic worsening of her pain. Is been getting worse over the last few days. All symptoms are for multiple days. We'll obtain abdominal, cardiac screening labs. We'll obtain a pelvic x-ray as well as left hip x-ray which she is having some pain as well as chest x-ray. EKG will be obtained. She'll be given IV analgesia as well as an aspirin. Vital signs are within normal limits. She was in agreement this plan. EKG shows no signs of acute ischemia. Shows chronic atrial fibrillation.Refer studies are relatively unremarkable including negative urine study. Chest x-ray shows no acute cardiopulmonary process. Pelvis x-ray and hip x-ray reveals no acute process. Lumbar spine CT was obtained and shows stable surgical changes with no acute process. Chronic findings. On reevaluation, patient still complaining of lower back pain. This is her c hronic pain. We did discuss, that she is not having any red flag symptoms concerning for cauda equina syndrome including denying saddle anesthesias, urinary or bowel incontinence/retention, lower extremity weakness I believe it is safer to be discharged home with close follow-up. Her pain physician did change her pain medications recently, she has noticed that since that change she is having more breakthrough pain. I did recommend that since she does have a pain contract that she follow up with him. We'll provide her with nonnarcotic prescriptions for home. She was in agreement with this plan. I will provide the patient with a prescription for Flexeril, lidocaine patch. I instructed the patient to follow up with their PCP in the next 1-3 days. I explained that the patient should return to the emergency department if they experience any worsening symptoms. Strict return precautions were discussed with the patient. The patient expressed understanding of these instructions. I answered all questions that the patient had. The patient was discharged home in fair condition with their prescriptions and follow up information. - Lab Data Result diagrams: 03/15/22 18:07 03/15/22 18:07 Lab Results 03/15/22 03/15/22 03/15/22 Range/Units 18:07 18:07 18:07 WBC 7.0 (3.8-10.6) k/uL RBC 4.23 (3.80-5.40) m/uL Hgb 11.8 (11.4-16.0) gm/dL Hct 37.0 (34.0-46.0) % MCV 87.6 (80.0-100.0) fL MCH 27.8 (25.0-35.0) pg MCHC 31.7 (31.0-37.0) g/dL RDW 15.0 (11.5-15.5) % Plt Count 236 (150-450) k/uL MPV 8.0 Neutrophils % 90 % Lymphocytes % 4 % Monocytes % 5 % Eosinophils % 0 % Basophils % 0 % Neutrophils # 6.3 (1.3-7.7) k/uL Lymphocytes # 0.3 L (1.0-4.8) k/uL Monocytes # 0.3 (0-1.0) k/uL Eosinophils # 0.0 (0-0.7) k/uL Basophils # 0.0 (0-0.2) k/uL PT 12.5 H (9.0-12.0) sec INR 1.2 H (<1.2) APTT 23.6 (22.0-30.0) sec Sodium 135 L (137-145) mmol/L Potassium 4.4 (3.5-5.1) mmol/L Chloride 102 (98-107) mmol/L Carbon Dioxide 21 L (22-30) mmol/L Anion Gap 12 mmol/L BUN 43 H (7-17) mg/dL Creatinine 1.01 (0.52-1.04) mg/dL Est GFR (CKD-EPI)AfAm 61 (>60 ml/min/1.73 sqM) Est GFR (CKD-EPI)NonAf 53 (>60 ml/min/1.73 sqM) Glucose 140 H (74-99) mg/dL Calcium 8.9 (8.4-10.2) mg/dL Magnesium 2.1 (1.6-2.3) mg/dL Total Bilirubin 0.4 (0.2-1.3) mg/dL AST 62 H (14-36) U/L ALT 35 H (4-34) U/L Alkaline Phosphatase 133 H (38-126) U/L Troponin I (0.000-0.034) ng/mL Total Protein 5.4 L (6.3-8.2) g/dL Albumin 3.3 L (3.5-5.0) g/dL Amylase 41 (30-110) U/L Lipase 145 (23-300) U/L Urine Color Urine Appearance (Clear) Urine pH (5.0-8.0) Ur Specific [place] (1.001-1.035) Urine Protein (Negative) Urine Glucose (UA) (Negative) Urine Ketones (Negative) Urine Blood (Negative) Urine Nitrite (Negative) Urine Bilirubin (Negative) Urine Urobilinogen (<2.0) mg/dL Ur Leukocyte Esterase (Negative) 03/15/22 03/15/22 Range/Units 18:07 Unknown WBC (3.8-10.6) k/uL RBC (3.80-5.40) m/uL Hgb (11.4-16.0) gm/dL Hct (34.0-46.0) % MCV (80.0-100.0) fL MCH (25.0-35.0) pg MCHC (31.0-37.0) g/dL RDW (11.5-15.5) % Plt Count (150-450) k/uL MPV Neutrophils % % Lymphocytes % % Monocytes % % Eosinophils % % Basophils % % Neutrophils # (1.3-7.7) k/uL Lymphocytes # (1.0-4.8) k/uL Monocytes # (0-1.0) k/uL Eosinophils # (0-0.7) k/uL Basophils # (0-0.2) k/uL PT (9.0-12.0) sec INR (<1.2) APTT (22.0-30.0) sec Sodium (137-145) mmol/L Potassium (3.5-5.1) mmol/L Chloride (98-107) mmol/L Carbon Dioxide (22-30) mmol/L Anion Gap mmol/L BUN (7-17) mg/dL Creatinine (0.52-1.04) mg/dL Est GFR (CKD-EPI)AfAm (>60 ml/min/1.73 sqM) Est GFR (CKD-EPI)NonAf (>60 ml/min/1.73 sqM) Glucose (74-99) mg/dL Calcium (8.4-10.2) mg/dL Magnesium (1.6-2.3) mg/dL Total Bilirubin (0.2-1.3) mg/dL AST (14-36) U/L ALT (4-34) U/L Alkaline Phosphatase (38-126) U/L Troponin I 0.021 (0.000-0.034) ng/mL Total Protein (6.3-8.2) g/dL Albumin (3.5-5.0) g/dL Amylase (30-110) U/L Lipase (23-300) U/L Urine Color Light Yellow Urine Appearance Clear (Clear) Urine pH 5.0 (5.0-8.0) Ur Specific [place] 1.011 (1.001-1.035) Urine Protein Negative (Negative) Urine Glucose (UA) Negative (Negative) Urine Ketones Negative (Negative) Urine Blood Negative (Negative) Urine Nitrite Negative (Negative) Urine Bilirubin Negative (Negative) Urine Urobilinogen <2.0 (<2.0) mg/dL Ur Leukocyte Esterase Negative (Negative) - EKG Data -: EKG Interpreted by Me EKG Comments: 12-lead Electrocardiogram Interpretation Note EKG was reviewed and interpreted by myself. 12-lead ECG performed at 1628 is interpreted by me as revealing to fibrillation, rate controlled at a rate of 70 beats per minute. [place] is normal. QRS duration is 80 ms, QTc is 377 ms.. There were no ST or T wave abnormalities to suggest myocardial ischemia or injury. R wave progression across the precordium was satisfactory. By my interpretation this EKG is non-diagnostic for acute ischemia. Disposition Clinical Impression: Chronic back pain, Atypical chest pain, Chronic pain Disposition: HOME SELF-CARE Condition: Fair Instructions (If sedation given, give patient instructions): Chronic Pain (ED) Prescriptions: Cyclobenzaprine [Flexeril] 10 mg PO BID PRN 10 Days #20 tab PRN Reason: Pain Lidocaine 5% Patch [Lidoderm 5% Patch] 1 patch TOPICAL DAILY PRN 10 Days #10 patch PRN Reason: Pain Is patient prescribed a controlled substance at d/c from ED?: No Referrals: Shea Amezcua MD [Primary Care Provider] - 1-2 days Time of Disposition: 20:15
--- NOTE | 2022-03-15 17:32 | XR ---
EXAMINATION TYPE: XR chest 2V DATE OF EXAM: 03/15/2022 COMPARISON: 11/02/2020 HISTORY: Pain TECHNIQUE: 2 view FINDINGS: Heart and mediastinum are normal. Lungs are clear. Diaphragm is normal. There is bilateral shoulder prosthesis. There is right central venous catheter with tip in the superior vena cava. IMPRESSION: No active cardiopulmonary disease. No change.
--- NOTE | 2022-03-15 17:35 | XR ---
EXAMINATION TYPE: XR Hip LT and AP Pelvis DATE OF EXAM: 03/15/2022 COMPARISON: 04/04/2014 HISTORY: Pain TECHNIQUE: 2 views FINDINGS: I see no fracture nor dislocation. There is left hip prosthesis in good position. IMPRESSION: No acute abnormality of the left hip. No fracture seen. No change.
[2022-03-15 18:11] LABS: Basophils % (A) 0 %; Eosinophils % (A) 0 %; HGB 11.8 gm/dL (11.4-16.0); Lymphocytes # (A) 0.3 k/uL (1.0-4.8); Lymphocytes % (A) 4 %; MCH 27.8 pg (25.0-35.0); MCHC 31.7 g/dL (31.0-37.0); MCV 87.6 fL (80.0-100.0); Monocytes # (A) 0.3 k/uL (0-1.0); Monocytes % (A) 5 %; Neutrophils # (A) 6.3 k/uL (1.3-7.7); Neutrophils % (A) 90 %; Platelet Count 236 k/uL (150-450); RBC 4.23 m/uL (3.80-5.40)
[2022-03-15 18:26] LABS: Albumin 3.3 g/dL (3.5-5.0); Calcium 8.9 mg/dL (8.4-10.2); Magnesium 2.1 mg/dL (1.6-2.3); Potassium 4.4 mmol/L (3.5-5.1); Total Bilirubin 0.4 mg/dL (0.2-1.3); Total Protein 5.4 g/dL (6.3-8.2)
[2022-03-15 18:29] LABS: INR 1.2 (<1.2); Partial Thromboplastin Time 23.6 sec (22.0-30.0); Prothrombin Time 12.5 sec (9.0-12.0)
[2022-03-15 18:57] LABS: Appearance,Urine Clear (Clear); Bilirubin,Urine Negative (Negative); Blood,Urine Negative (Negative); Color,Urine Light Yellow; Glucose,Urine (UA) Negative (Negative); Ketones,Urine Negative (Negative); Leukocyte Esterase,Urine Negative (Negative); Nitrite,Urine Negative (Negative); Protein,Urine Negative (Negative); Specific Gravity,Urine 1.011 (1.001-1.035); Urobilinogen,Urine <2.0 mg/dL (<2.0)
[2022-03-15] MEDS ORDERED: HYDROmorphone 1 MG/ML 1 ML SYRINGE IVP STA (19:32)
--- NOTE | 2022-03-15 19:56 | CT ---
EXAMINATION TYPE: CT lumbar spine wo con DATE OF EXAM: 03/15/2022 COMPARISON: None HISTORY: Low back pain, hx spinal sx CT DLP: 1246.6 mGycm Automated exposure control for dose reduction was used. Images obtained from the level of T10-S1 2 vertebra with no contrast. There is osteopenia. There is previous anterior and posterior fusion surgery in the lumbar spine from L2 through L5. There is disc prosthesis at levels from L3 to S1. There is mild compression of L2 and L3 vertebra 15% with biconcave deformity at the elbow to 3 disc. There is no lumbar paraspinal mass. There is multilevel laminectomy defect there is metal artifact. Sacroiliac joints appear intact. IMPRESSION: Previous surgery. No significant change compared to the old exam. There is improvement in the abdomin al ascites compared to old exam. No acute fracture seen. Osteopenia. There is a mild stable L4-5 spondylolisthesis.
[2022-03-15] MEDS ORDERED: ACET/COD 300 MG/30 MG STARTER PACK 6 TAB BTL PO STA (20:12)
[2022-03-15] MEDS ORDERED: CYCLOBENZAPRINE 10MG STARTER 3 TAB BTL PO STA (20:12)
[2022-03-15] MEDS ORDERED: HYDROmorphone 1 MG/ML 1 ML SYRINGE IM STA (22:12)
[2022-03-15 22:29] VITALS: BP 144/80; PULSE 86; RESP 18; TEMP 98.6
== END 2022-03-15 22:29 | disposition home or self-care (01) ==
LOC: EC 16:13
DX: G89.29 Other chronic pain (principal); M54.50 Low back pain, unspecified; R07.89 Other chest pain; R10.9 Unspecified abdominal pain; E11.40 Type 2 diabetes mellitus with diabetic neuropathy, unspecified; J45.909 Unspecified asthma, uncomplicated; I25.10 Atherosclerotic heart disease of native coronary artery without angina pectoris; M79.7 Fibromyalgia; K21.9 Gastro-esophageal reflux disease without esophagitis; E78.5 Hyperlipidemia, unspecified; I10 Essential (primary) hypertension; M19.90 Unspecified osteoarthritis, unspecified site; E03.9 Hypothyroidism, unspecified; Z88.8 Allergy status to other drugs, medicaments and biological substances; Z88.1 Allergy status to other antibiotic agents; Z91.09 Other allergy status, other than to drugs and biological substances; Z91.018 Allergy to other foods; Z88.2 Allergy status to sulfonamides; Z91.013 Allergy to seafood; Z91.030 Bee allergy status; Z88.0 Allergy status to penicillin; Z79.899 Other long term (current) drug therapy; Z79.890 Hormone replacement therapy; Z79.84 Long term (current) use of oral hypoglycemic drugs
CPT/HCPCS: 36415; 93005; 80053; 82150; 83690; 83735; 84484; 85025; 85610; 85730; 81003; 73502; 71046; 72131; 99285; 96374; 96375; 96372; 96376; J1642; J1170 ×2

== ENCOUNTER 2022-03-21 11:42 | Day surgery (SDC) | payer MEDICARE ==
[2022-03-21 12:23] VITALS: TEMP 98.4
[2022-03-21 12:28] LABS: Glucose,Whole Blood 127 mg/dL (70-110)
[2022-03-21] MEDS: ALBUMIN HUMAN 25% 50 ML in EMPTY BAG 1 BAG IVPB SCH ×3 (13:36→14:27)
[2022-03-21 15:01] VITALS: BP 110/63; PULSE 78; RESP 16
--- NOTE | 2022-03-21 15:19 | US ---
EXAMINATION TYPE: US paracentesis abd w/image DATE OF EXAM: 03/21/2022 COMPARISON: NONE HISTORY: Ascites. PROCEDURE: Maximal barrier technique was utilized. The skin overlying a suitable pocket of fluid was localized with ultrasound and the overlying skin was prepped and draped. Ultrasound was utilized with sterile technique. Lidocaine was used for local anesthesia and a skin saurabh made with a scalpel. Catheter was advanced under direct ultrasound guidance into a suitable pocket of fluid and approximately 5 liters of serous fluid were removed. Catheter was withdrawn and hemostasis achieved. There is no immediate complication; the patient is discharged in stable condition. IMPRESSION: STATUS POST ULTRASOUND GUIDED PARACENTESIS FOR PALLIATION OF ASCITES. THIS PROCEDURE WA S PERFORMED BY THE UNDERSIGNED.
== END 2022-03-21 14:45 | disposition home or self-care (01) ==
LOC: RADPROMAIN 11:42
PROVIDERS: ATTEND Internal Medicine Gastroenterology
DX: K70.31 Alcoholic cirrhosis of liver with ascites (principal); N18.9 Chronic kidney disease, unspecified; Z88.0 Allergy status to penicillin; Z88.8 Allergy status to other drugs, medicaments and biological substances; Z88.3 Allergy status to other anti-infective agents; Z88.2 Allergy status to sulfonamides; Z88.1 Allergy status to other antibiotic agents; Z91.030 Bee allergy status; Z91.038 Other insect allergy status; Z91.018 Allergy to other foods; Z91.013 Allergy to seafood; Z79.890 Hormone replacement therapy; Z79.899 Other long term (current) drug therapy; Z79.84 Long term (current) use of oral hypoglycemic drugs; Z87.891 Personal history of nicotine dependence; Z80.9 Family history of malignant neoplasm, unspecified
CPT/HCPCS: 49083; P9047; J1642

== ENCOUNTER 2022-03-28 12:19 | Day surgery (SDC) | payer MEDICARE ==
[2022-03-28 12:53] VITALS: RESP 16; TEMP 98.1
[2022-03-28 12:55] LABS: Mean Platelet Volume 7.9; Platelet Count 265 k/uL (150-450)
[2022-03-28 13:07] LABS: INR 1.3 (<1.2); Prothrombin Time 13.8 sec (9.0-12.0)
[2022-03-28] MEDS: ALBUMIN HUMAN 25% 50 ML in EMPTY BAG 1 BAG IVPB SCH ×3 (14:12→14:59)
[2022-03-28 15:02] VITALS: PULSE 80
[2022-03-28 15:03] VITALS: BP 126/58
--- NOTE | 2022-04-04 08:18 | US ---
Ultrasound-guided paracentesis. DATE OF EXAM: 03/28/2022 CLINICAL HISTORY: Ascites The procedure was discussed with the patient. The risks, complications, benefits, and alternatives we re discussed and any questions were answered. Informed consent was obtained. The patient was placed s upine on the ultrasound table and prepped and draped in the usual sterile fashion. All elements of maximal barrier technique were utilized. Under ultrasound guidance, access into the right lower quadrant was obtained, via the paracentesis catheter system and direct ultrasound guidanc e. Approximately 5 liters of straw-colored fluid was removed. The patient was stable throughout the proc edure and remained stable upon discharge from Department of Radiology. IMPRESSION: Successful paracentesis under ultrasound guidance.
== END 2022-03-28 14:45 | disposition home or self-care (01) ==
LOC: RADPROMAIN 12:19
PROVIDERS: ATTEND Internal Medicine Gastroenterology
DX: R18.8 Other ascites (principal); R25.2 Cramp and spasm
CPT/HCPCS: 82565; 82947; 85049; 85610; 36415; 49083; P9047; J1642

== ENCOUNTER 2022-04-04 12:09 | Day surgery (SDC) | payer MEDICARE ==
[2022-04-04 12:39] VITALS: RESP 16; TEMP 98.3
[2022-04-04 12:45] LABS: Mean Platelet Volume 7.9; Platelet Count 201 k/uL (150-450)
[2022-04-04 13:07] LABS: INR 1.2 (<1.2); Prothrombin Time 13.1 sec (9.0-12.0)
[2022-04-04] MEDS: ALBUMIN HUMAN 25% 50 ML in EMPTY BAG 1 BAG IVPB SCH ×3 (13:35→14:11)
[2022-04-04 14:19] VITALS: BP 106/63; PULSE 70
--- NOTE | 2022-04-04 14:46 | US ---
Ultrasound-guided paracentesis. DATE OF EXAM: 04/04/2022 CLINICAL HISTORY: Ascites The procedure was discussed with the patient. The risks, complications, benefits, and alternatives we re discussed and any questions were answered. Informed consent was obtained. The patient was placed s upine on the ultrasound table and prepped and draped in the usual sterile fashion. All elements of maximal barrier technique were utilized. Under ultrasound guidance, access into the right lower quadrant was obtained, via the paracentesis catheter system and direct ultrasound guidanc e. Approximately 4.4 liters of straw-colored fluid was removed. The patient was stable throughout the pr ocedure and remained stable upon discharge from Department of Radiology. IMPRESSION: Successful paracentesis under ultrasound guidance.
== END 2022-04-04 14:35 | disposition home or self-care (01) ==
LOC: RADPROMAIN 12:09
PROVIDERS: ATTEND Internal Medicine Gastroenterology
DX: K70.31 Alcoholic cirrhosis of liver with ascites (principal); N18.9 Chronic kidney disease, unspecified
CPT/HCPCS: 82565; 82947; 85049; 85610; 49083; P9047; J1642

== ENCOUNTER 2022-04-11 12:04 | Day surgery (SDC) | payer MEDICARE ==
[2022-04-11 13:12] VITALS: TEMP 98
[2022-04-11 13:13] LABS: Mean Platelet Volume 8.1; Platelet Count 232 k/uL (150-450)
[2022-04-11 13:55] LABS: INR 1.4 (<1.2); Prothrombin Time 14.8 sec (9.0-12.0)
[2022-04-11 14:06] VITALS: RESP 18
[2022-04-11 15:02] VITALS: BP 122/65; PULSE 84
[2022-04-11] MEDS: ALBUMIN HUMAN 25% 50 ML in EMPTY BAG 1 BAG IVPB SCH ×2 (15:05→15:06)
--- NOTE | 2022-04-11 15:58 | US ---
Ultrasound-guided paracentesis. DATE OF EXAM: 04/11/2022 CLINICAL HISTORY: Ascites The procedure was discussed with the patient. The risks, complications, benefits, and alternatives we re discussed and any questions were answered. Informed consent was obtained. The patient was placed s upine on the ultrasound table and prepped and draped in the usual sterile fashion. All elements of maximal barrier technique were utilized. Under ultrasound guidance, access into the right lower quadrant was obtained, via the paracentesis catheter system and direct ultrasound guidanc e. Approximately 4.2 liters of straw-colored fluid was removed. The patient was stable throughout the pr ocedure and remained stable upon discharge from Department of Radiology. IMPRESSION: Successful paracentesis under ultrasound guidance.
== END 2022-04-11 14:55 | disposition home or self-care (01) ==
LOC: RADPROMAIN 12:04
PROVIDERS: ATTEND Internal Medicine Gastroenterology
DX: K70.31 Alcoholic cirrhosis of liver with ascites (principal)
CPT/HCPCS: 82565; 82947; 85049; 85610; 85730; 36415; 49083; J1642

== ENCOUNTER 2022-04-18 12:13 | Day surgery (SDC) | payer MEDICARE ==
[2022-04-18 12:40] LABS: Mean Platelet Volume 9.1; Platelet Count 282 k/uL (150-450)
[2022-04-18 12:47] VITALS: TEMP 98.1
[2022-04-18 13:23] LABS: INR 1.3 (<1.2); Prothrombin Time 13.6 sec (9.0-12.0)
[2022-04-18 13:56] VITALS: RESP 16
[2022-04-18] MEDS: ALBUMIN HUMAN 25% 50 ML in EMPTY BAG 1 BAG IVPB SCH (14:30)
[2022-04-18 14:54] VITALS: BP 119/62; PULSE 70
--- NOTE | 2022-04-18 15:33 | US ---
EXAMINATION TYPE: US paracentesis abd w/image DATE OF EXAM: 04/18/2022 COMPARISON: NONE HISTORY: Ascites. PROCEDURE: Maximal barrier technique was utilized. The skin overlying a suitable pocket of fluid was localized with ultrasound and the overlying skin was prepped and draped. Ultrasound was utilized with sterile technique. Lidocaine was used for local anesthesia and a skin saurabh made with a scalpel. Catheter was advanced under direct ultrasound guidance into a suitable pocket of fluid and approximately 4.7 liter s of ascites fluid were removed. Catheter was withdrawn and hemostasis achieved. There is no immedi ate complication; the patient is discharged in stable condition. IMPRESSION: STATUS POST ULTRASOUND GUIDED PARACENTESIS FOR PALLIATION OF ASCITES. THIS PROCEDURE WA S PERFORMED BY THE UNDERSIGNED.
== END 2022-04-18 14:54 | disposition home or self-care (01) ==
LOC: RADPROMAIN 12:13
PROVIDERS: ATTEND Internal Medicine Gastroenterology
DX: K70.31 Alcoholic cirrhosis of liver with ascites (principal)
CPT/HCPCS: 82565; 82947; 85049; 85610; 49083; J1642

== ENCOUNTER 2022-04-25 12:02 | Day surgery (SDC) | payer MEDICARE ==
[2022-04-25 13:08] VITALS: RESP 16; TEMP 98
[2022-04-25 13:15] LABS: Mean Platelet Volume 8.6; Platelet Count 264 k/uL (150-450)
[2022-04-25 13:32] LABS: INR 1.2 (<1.2); Prothrombin Time 12.8 sec (9.0-12.0)
[2022-04-25 16:23] VITALS: BP 122/65; PULSE 77
[2022-04-25] MEDS: ALBUMIN HUMAN 25% 50 ML in EMPTY BAG 1 BAG IVPB SCH ×2 (16:29→16:30)
--- NOTE | 2022-04-27 06:33 | US ---
EXAMINATION TYPE: US paracentesis abd w/image DATE OF EXAM: 04/25/2022 COMPARISON: NONE HISTORY: Ascites. PROCEDURE: Maximal barrier technique was utilized. The skin overlying a suitable pocket of fluid was localized with ultrasound and the overlying skin was prepped and draped. Ultrasound was utilized with sterile technique. Lidocaine was used for local anesthesia and a skin saurabh made with a scalpel. Catheter was advanced under direct ultrasound guidance into a suitable pocket of fluid and approximately 4.9 liter s of ascites fluid were removed. Catheter was withdrawn and hemostasis achieved. There is no immedi ate complication; the patient is discharged in stable condition. IMPRESSION: STATUS POST ULTRASOUND GUIDED PARACENTESIS FOR PALLIATION OF ASCITES. THIS PROCEDURE WA S PERFORMED BY THE UNDERSIGNED.
== END 2022-04-25 15:30 | disposition home or self-care (01) ==
LOC: RADPROMAIN 12:02
PROVIDERS: ATTEND Internal Medicine Gastroenterology
DX: K70.31 Alcoholic cirrhosis of liver with ascites (principal)
CPT/HCPCS: 82565; 82947; 85049; 85610; 36415; 49083; J1642

== ENCOUNTER 2022-05-02 11:59 | Day surgery (SDC) | payer MEDICARE ==
[2022-05-02 12:34] VITALS: RESP 16; TEMP 97.6
[2022-05-02 12:46] LABS: Mean Platelet Volume 8.6; Platelet Count 245 k/uL (150-450)
[2022-05-02 12:55] LABS: INR 1.1 (<1.2); Prothrombin Time 12.2 sec (9.0-12.0)
[2022-05-02] MEDS: ALBUMIN HUMAN 25% 50 ML in EMPTY BAG 1 BAG IVPB SCH ×3 (13:37→14:14)
[2022-05-02 14:17] VITALS: BP 155/77; PULSE 78
--- NOTE | 2022-05-02 14:41 | US ---
EXAMINATION TYPE: US paracentesis abd w/image DATE OF EXAM: 05/02/2022 CLINICAL HISTORY: Ascites The procedure was discussed with the patient. The risks, complications, benefits, and alternatives we re discussed and any questions were answered. Informed consent was obtained. The patient was placed s upine on the ultrasound table and prepped and draped in the usual sterile fashion. All elements of maximal barrier technique were utilized. Under ultrasound guidance, access into the right lower quadrant was obtained, via the paracentesis catheter system and direct ultrasound guidanc e. Approximately 4.7 liters of straw-colored fluid was removed. The patient was stable throughout the pr ocedure and remained stable upon discharge from Department of Radiology. IMPRESSION: Successful therapeutic paracentesis under ultrasound guidance.
== END 2022-05-02 14:34 | disposition home or self-care (01) ==
LOC: RADPROMAIN 11:59
PROVIDERS: ATTEND Internal Medicine Gastroenterology
DX: R18.8 Other ascites (principal)
CPT/HCPCS: 82565; 82947; 85049; 85610; 49083; P9047

== ENCOUNTER 2022-05-09 12:08 | Day surgery (SDC) | payer MEDICARE ==
[2022-05-09 12:43] VITALS: RESP 16; TEMP 97.7
[2022-05-09 12:46] LABS: Mean Platelet Volume 8.6; Platelet Count 234 k/uL (150-450)
[2022-05-09 13:11] LABS: INR 1.2 (<1.2); Prothrombin Time 12.9 sec (9.0-12.0)
[2022-05-09] MEDS: ALBUMIN HUMAN 25% 50 ML in EMPTY BAG 1 BAG IVPB SCH ×3 (14:17→14:59)
[2022-05-09 15:01] VITALS: BP 119/58; PULSE 66
--- NOTE | 2022-05-09 16:00 | US ---
EXAMINATION TYPE: US paracentesis abd w/image DATE OF EXAM: 05/09/2022 COMPARISON: NONE HISTORY: Ascites. PROCEDURE: Maximal barrier technique was utilized. The skin overlying a suitable pocket of fluid was localized with ultrasound and the overlying skin was prepped and draped. Ultrasound was utilized with sterile technique. Lidocaine was used for local anesthesia and a skin saurabh made with a scalpel. Catheter was advanced under direct ultrasound guidance into a suitable pocket of fluid and approximately 5.2 liter s of ascites fluid were removed. Catheter was withdrawn and hemostasis achieved. There is no immedi ate complication; the patient is discharged in stable condition. IMPRESSION: STATUS POST ULTRASOUND GUIDED PARACENTESIS FOR PALLIATION OF ASCITES. THIS PROCEDURE WA S PERFORMED BY THE UNDERSIGNED.
== END 2022-05-09 15:20 | disposition home or self-care (01) ==
LOC: RADPROMAIN 12:08
PROVIDERS: ATTEND Internal Medicine Gastroenterology
DX: R18.8 Other ascites (principal)
CPT/HCPCS: 82565; 82947; 85049; 85610; 49083; P9047; J1642

== ENCOUNTER 2022-05-16 12:01 | Day surgery (SDC) | payer MEDICARE ==
[2022-05-16 13:05] LABS: Mean Platelet Volume 9.1; Platelet Count 234 k/uL (150-450)
[2022-05-16 13:14] VITALS: TEMP 97.9
[2022-05-16 13:19] LABS: Calcium 7.7 mg/dL (8.4-10.2); INR 1.2 (<1.2); Potassium 4.2 mmol/L (3.5-5.1); Prothrombin Time 12.5 sec (9.0-12.0)
[2022-05-16] MEDS: ALBUMIN HUMAN 25% 50 ML in EMPTY BAG 1 BAG IVPB SCH ×4 (13:20→14:34)
[2022-05-16 13:56] VITALS: RESP 16
[2022-05-16 15:24] VITALS: BP 121/69; PULSE 79
--- NOTE | 2022-05-16 16:07 | US ---
EXAMINATION TYPE: US paracentesis abd w/image DATE OF EXAM: 05/16/2022 COMPARISON: NONE HISTORY: Ascites. PROCEDURE: Maximal barrier technique was utilized. The skin overlying a suitable pocket of fluid was localized with ultrasound and the overlying skin was prepped and draped. Ultrasound was utilized with sterile technique. Lidocaine was used for local anesthesia and a skin saurabh made with a scalpel. Catheter was advanced under direct ultrasound guidance into a suitable pocket of fluid and approximately 5.3 liter s of ascites fluid were removed. Catheter was withdrawn and hemostasis achieved. There is no immedi ate complication; the patient is discharged in stable condition. IMPRESSION: STATUS POST ULTRASOUND GUIDED PARACENTESIS FOR PALLIATION OF ASCITES. THIS PROCEDURE WA S PERFORMED BY THE UNDERSIGNED.
== END 2022-05-16 15:05 | disposition home or self-care (01) ==
LOC: RADPROMAIN 12:01
PROVIDERS: ATTEND Internal Medicine Gastroenterology
DX: R18.8 Other ascites (principal)
CPT/HCPCS: 80048; 85049; 85610; 49083; P9047; J1642

== ENCOUNTER 2022-05-23 11:47 | Day surgery (SDC) | payer MEDICARE ==
[2022-05-23 12:25] VITALS: RESP 16; TEMP 97.9
[2022-05-23 12:51] LABS: Glucose,Whole Blood 130 mg/dL (70-110)
[2022-05-23] MEDS: ALBUMIN HUMAN 25% 50 ML in EMPTY BAG 1 BAG IVPB SCH ×2 (14:51→15:45)
[2022-05-23 15:48] VITALS: BP 121/68; PULSE 76
--- NOTE | 2022-05-23 16:11 | US ---
EXAMINATION TYPE: US paracentesis abd w/image DATE OF EXAM: 05/23/2022 COMPARISON: NONE HISTORY: Ascites. PROCEDURE: Maximal barrier technique was utilized. The skin overlying a suitable pocket of fluid was localized with ultrasound and the overlying skin was prepped and draped. Ultrasound was utilized with sterile technique. Lidocaine was used for local anesthesia and a skin saurabh made with a scalpel. Catheter was advanced under direct ultrasound guidance into a suitable pocket of fluid and approximately 5.9 liter s of ascites fluid were removed. Catheter was withdrawn and hemostasis achieved. There is no immedi ate complication; the patient is discharged in stable condition. IMPRESSION: STATUS POST ULTRASOUND GUIDED PARACENTESIS FOR PALLIATION OF ASCITES. THIS PROCEDURE WA S PERFORMED BY THE UNDERSIGNED.
== END 2022-05-23 15:40 | disposition home or self-care (01) ==
LOC: RADPROMAIN 11:47 → EDSTATUS 12:30 → RADPROMAIN 15:40
PROVIDERS: ATTEND Internal Medicine Gastroenterology
DX: R18.8 Other ascites (principal)
CPT/HCPCS: 36415; 49083; J1642

== ENCOUNTER 2022-05-30 11:59 | Day surgery (SDC) | payer MEDICARE ==
[2022-05-30 12:57] LABS: Mean Platelet Volume 8.7; Platelet Count 218 k/uL (150-450)
[2022-05-30 13:00] VITALS: TEMP 97.8
[2022-05-30 13:08] LABS: INR 1.2 (<1.2); Prothrombin Time 13.1 sec (9.0-12.0)
[2022-05-30] MEDS: ALBUMIN HUMAN 25% 50 ML in EMPTY BAG 1 BAG IVPB SCH ×4 (13:39→14:33)
--- NOTE | 2022-05-30 15:01 | US ---
Ultrasound-guided paracentesis. DATE OF EXAM: 05/30/2022 CLINICAL HISTORY: Ascites The procedure was discussed with the patient. The risks, complications, benefits, and alternatives we re discussed and any questions were answered. Informed consent was obtained. The patient was placed s upine on the ultrasound table and prepped and draped in the usual sterile fashion. All elements of maximal barrier technique were utilized. Under ultrasound guidance, access into the right lower quadrant was obtained, via the paracentesis catheter system and direct ultrasound guidanc e. Approximately 6.1 liters of straw-colored fluid was removed. The patient was stable throughout the pr ocedure and remained stable upon discharge from Department of Radiology. IMPRESSION: Successful paracentesis under ultrasound guidance.
[2022-05-30 15:14] VITALS: BP 125/60; PULSE 67; RESP 16
== END 2022-05-30 15:10 | disposition home or self-care (01) ==
LOC: RADPROMAIN 11:59
PROVIDERS: ATTEND Internal Medicine Gastroenterology
DX: K70.31 Alcoholic cirrhosis of liver with ascites (principal)
CPT/HCPCS: 82565; 82947; 85049; 85610; 49083; P9047; J1642

== ENCOUNTER 2022-06-06 12:00 | Day surgery (SDC) | payer MEDICARE ==
[2022-06-06 13:16] LABS: Platelet Count 204 k/uL (150-450)
[2022-06-06 13:18] LABS: INR 1.3 (<1.2); Prothrombin Time 13.6 sec (9.0-12.0)
[2022-06-06 13:19] VITALS: TEMP 98
[2022-06-06] MEDS: ALBUMIN HUMAN 25% 50 ML in EMPTY BAG 1 BAG IVPB SCH ×4 (13:25→14:28)
[2022-06-06 13:45] VITALS: RESP 16
[2022-06-06 14:43] VITALS: BP 133/68; PULSE 78
--- NOTE | 2022-06-09 07:45 | US ---
Ultrasound-guided paracentesis. DATE OF EXAM: 06/06/2022 CLINICAL HISTORY: Ascites The procedure was discussed with the patient. The risks, complications, benefits, and alternatives we re discussed and any questions were answered. Informed consent was obtained. The patient was placed s upine on the ultrasound table and prepped and draped in the usual sterile fashion. All elements of maximal barrier technique were utilized. Under ultrasound guidance, access into the right lower quadrant was obtained, via the paracentesis catheter system and direct ultrasound guidanc e. Approximately 6.2 liters of straw-colored fluid was removed. The patient was stable throughout the pr ocedure and remained stable upon discharge from Department of Radiology. IMPRESSION: Successful paracentesis under ultrasound guidance.
== END 2022-06-06 15:07 | disposition home or self-care (01) ==
LOC: RADPROMAIN 12:00
PROVIDERS: ATTEND Internal Medicine Gastroenterology
DX: K70.31 Alcoholic cirrhosis of liver with ascites (principal)
CPT/HCPCS: 82565; 82947; 85049; 85610; 49083; P9047; J1642

== ENCOUNTER 2022-06-13 11:55 | Day surgery (SDC) | payer MEDICARE ==
[2022-06-13 12:35] LABS: Platelet Count 205 k/uL (150-450)
[2022-06-13 12:41] LABS: INR 1.2 (<1.2)
[2022-06-13 12:43] VITALS: TEMP 98.4
[2022-06-13] MEDS: ALBUMIN HUMAN 25% 50 ML in EMPTY BAG 1 BAG IVPB SCH ×4 (13:25→14:20)
[2022-06-13 14:39] VITALS: BP 116/72; PULSE 69; RESP 16
--- NOTE | 2022-06-16 08:01 | US ---
Ultrasound-guided paracentesis. DATE OF EXAM: 06/13/2022 CLINICAL HISTORY: Ascites The procedure was discussed with the patient. The risks, complications, benefits, and alternatives we re discussed and any questions were answered. Informed consent was obtained. The patient was placed s upine on the ultrasound table and prepped and draped in the usual sterile fashion. All elements of maximal barrier technique were utilized. Under ultrasound guidance, access into the right lower quadrant was obtained, via the paracentesis catheter system and direct ultrasound guidanc e. Approximately 6.2 liters of straw-colored fluid was removed. The patient was stable throughout the pr ocedure and remained stable upon discharge from Department of Radiology. IMPRESSION: Successful paracentesis under ultrasound guidance.
== END 2022-06-13 14:35 | disposition home or self-care (01) ==
LOC: RADPROMAIN 11:55
PROVIDERS: ATTEND Internal Medicine Gastroenterology
DX: R18.8 Other ascites (principal)
CPT/HCPCS: 82565; 82947; 85049; 85610; 49083; P9047; J1642

== ENCOUNTER 2022-06-20 08:37 | Day surgery (SDC) | payer MEDICARE ==
[2022-06-20 09:17] VITALS: TEMP 98
[2022-06-20] MEDS: ALBUMIN HUMAN 25% 50 ML in EMPTY BAG 1 BAG IVPB SCH ×4 (09:23→11:11)
[2022-06-20 09:46] LABS: Mean Platelet Volume 8.6; Platelet Count 198 k/uL (150-450)
[2022-06-20 09:52] LABS: INR 1.2 (<1.2); Prothrombin Time 12.9 sec (9.0-12.0)
[2022-06-20 10:11] VITALS: RESP 16
[2022-06-20 11:08] VITALS: BP 125/68; PULSE 86
--- NOTE | 2022-06-20 14:01 | US ---
Ultrasound-guided paracentesis. DATE OF EXAM: 06/20/2022 CLINICAL HISTORY: Ascites The procedure was discussed with the patient. The risks, complications, benefits, and alternatives we re discussed and any questions were answered. Informed consent was obtained. The patient was placed s upine on the ultrasound table and prepped and draped in the usual sterile fashion. All elements of maximal barrier technique were utilized. Under ultrasound guidance, access into the right lower quadrant was obtained, via the paracentesis catheter system and direct ultrasound guidanc e. Approximately 5.8 liters of straw-colored fluid was removed. The patient was stable throughout the pr ocedure and remained stable upon discharge from Department of Radiology. IMPRESSION: Successful paracentesis under ultrasound guidance.
== END 2022-06-20 11:05 | disposition home or self-care (01) ==
LOC: RADPROMAIN 08:37
PROVIDERS: ATTEND Internal Medicine Gastroenterology
DX: R18.8 Other ascites (principal)
CPT/HCPCS: 82565; 82947; 85049; 85610; 36415; 49083; P9047; J1642

== ENCOUNTER 2022-06-27 12:06 | Day surgery (SDC) | payer MEDICARE ==
[2022-06-27 12:44] VITALS: TEMP 97.9
[2022-06-27] MEDS: ALBUMIN HUMAN 25% 50 ML in EMPTY BAG 1 BAG IVPB SCH ×3 (13:21→14:03)
[2022-06-27 14:43] VITALS: BP 120/65; PULSE 75; RESP 14
--- NOTE | 2022-06-27 15:27 | US ---
EXAM: Ultrasound-guided Paracentesis DATE: 06/27/2022 3:23 PM REASON FOR EXAM: Ascites RADIOLOGIST: Dr. Winchester EDITOR SOUND: None ANESTHESIA: Local Lidocaine TECHNIQUE: I verify that I have discussed the potential benefits, risks, and side effects regarding this treatme nt/procedure, the likelihood of the patient achieving his or her goals, and the potential problems th at might occur during recuperation. I verify that I have explained the alternatives to the patient i ncluding the risks, benefits, and side effects related to the alternatives and the risks related to n ot receiving the operation/procedure/treatment. The patient/surrogate decision maker has had an oppo rtunity to ask and have questions answered. I have secured the patient's or the surrogate decision m kacy's consent prior to the operation/procedure/treatment. Patient was placed supine on ultrasound table and the lower abdomen was prepped and draped in usual s terile fashion. 1% lidocaine was infused into the skin and subcutaneous soft tissues to achieve local anesthesia. Under sonographic guidance a 5 F Yueh needle was advanced into the ascites. Approximat soheila 5900 ml of clear yellow-colored fluid was removed. FINDINGS: Sonographic images of the abdomen demonstrate a large amount of free fluid. IMPRESSION: Technically successful uncomplicated paracentesis.
== END 2022-06-27 14:35 | disposition home or self-care (01) ==
LOC: RADPROMAIN 12:06
PROVIDERS: ATTEND Internal Medicine Gastroenterology
DX: R18.8 Other ascites (principal)
CPT/HCPCS: 49083; P9047; J1642

== ENCOUNTER 2022-07-04 08:59 | Day surgery (SDC) | payer MEDICARE ==
[2022-07-04 09:32] LABS: Mean Platelet Volume 8.5; Platelet Count 189 k/uL (150-450)
[2022-07-04 09:36] VITALS: TEMP 98
[2022-07-04 09:38] LABS: INR 1.3 (<1.2)
[2022-07-04 09:39] LABS: Prothrombin Time 13.2 sec (9.0-12.0)
[2022-07-04] MEDS: ALBUMIN HUMAN 25% 50 ML in EMPTY BAG 1 BAG IVPB SCH ×4 (10:08→10:53)
[2022-07-04 11:25] VITALS: BP 138/72; PULSE 76; RESP 14
--- NOTE | 2022-07-04 11:41 | US ---
Ultrasound-guided paracentesis. DATE OF EXAM: 07/04/2022 CLINICAL HISTORY: Ascites The procedure was discussed with the patient. The risks, complications, benefits, and alternatives we re discussed and any questions were answered. Informed consent was obtained. The patient was placed s upine on the ultrasound table and prepped and draped in the usual sterile fashion. All elements of maximal barrier technique were utilized. Under ultrasound guidance, access into the right lower quadrant was obtained, via the paracentesis catheter system and direct ultrasound guidanc e. Approximately 6.4 liters of straw-colored fluid was removed. The patient was stable throughout the pr ocedure and remained stable upon discharge from Department of Radiology. IMPRESSION: Successful paracentesis under ultrasound guidance.
== END 2022-07-04 11:15 | disposition home or self-care (01) ==
LOC: RADPROMAIN 08:59
PROVIDERS: ATTEND Internal Medicine Gastroenterology
DX: R18.8 Other ascites (principal)
CPT/HCPCS: 82565; 82947; 85049; 85610; 36415; 49083; P9047; J1642

== ENCOUNTER 2022-07-11 08:40 | Day surgery (SDC) | payer MEDICARE ==
[2022-07-11 09:54] LABS: HCT 34.9 % (34.0-46.0); MCH 31.2 pg (25.0-35.0); MCHC 34.3 g/dL (31.0-37.0); MCV 90.9 fL (80.0-100.0); Mean Platelet Volume 8.4; Platelet Count 202 k/uL (150-450); RBC 3.84 m/uL (3.80-5.40); RDW 15.3 % (11.5-15.5); WBC 6.3 k/uL (3.8-10.6)
[2022-07-11] MEDS: ALBUMIN HUMAN 25% 50 ML in EMPTY BAG 1 BAG IVPB SCH ×4 (10:00→10:45)
[2022-07-11 10:08] LABS: INR 1.2 (<1.2); Prothrombin Time 12.1 sec (9.0-12.0)
[2022-07-11 10:09] LABS: Albumin 3.1 g/dL (3.5-5.0); Bilirubin, Delta 0.3 mg/dL (0.0-0.2); Bilirubin,Unconjugated 0.3 mg/dL (0.0-1.1); Total Bilirubin 0.6 mg/dL (0.2-1.3); Total Protein 5.2 g/dL (6.3-8.2)
[2022-07-11 10:56] VITALS: RESP 18
[2022-07-11 11:10] VITALS: BP 127/60; PULSE 88
--- NOTE | 2022-07-11 15:42 | US ---
Ultrasound-guided paracentesis. DATE OF EXAM: 07/11/2022 CLINICAL HISTORY: Ascites The procedure was discussed with the patient. The risks, complications, benefits, and alternatives we re discussed and any questions were answered. Informed consent was obtained. The patient was placed s upine on the ultrasound table and prepped and draped in the usual sterile fashion. All elements of maximal barrier technique were utilized. Under ultrasound guidance, access into the right lower quadrant was obtained, via the paracentesis catheter system and direct ultrasound guidanc e. Approximately 6.2 liters of straw-colored fluid was removed. The patient was stable throughout the pr ocedure and remained stable upon discharge from Department of Radiology. IMPRESSION: Successful paracentesis under ultrasound guidance.
== END 2022-07-11 11:20 | disposition home or self-care (01) ==
LOC: RADPROMAIN 08:40
PROVIDERS: ATTEND Internal Medicine Gastroenterology
DX: K70.31 Alcoholic cirrhosis of liver with ascites (principal)
CPT/HCPCS: 80076; 82565; 82947; 85027; 85610; 82105; 49083; P9047

== ENCOUNTER 2022-07-18 08:33 | Day surgery (SDC) | payer MEDICARE ==
[2022-07-18 09:17] LABS: Mean Platelet Volume 9.4; Platelet Count 150 k/uL (150-450)
[2022-07-18 09:22] LABS: INR 1.2 (<1.2)
[2022-07-18 09:27] VITALS: TEMP 97.8
[2022-07-18] MEDS: ALBUMIN HUMAN 25% 50 ML in EMPTY BAG 1 BAG IVPB SCH ×4 (09:38→10:49)
[2022-07-18 10:12] VITALS: RESP 16
[2022-07-18 11:03] VITALS: BP 138/71; PULSE 79
--- NOTE | 2022-07-19 07:05 | US ---
EXAMINATION TYPE: US paracentesis abd w/image DATE OF EXAM: 07/18/2022 CLINICAL HISTORY: Swelling and pain. Ascites. Comparison: Prior study 1 week earlier. The procedure was discussed with the patient. The risks, complications, benefits, and alternatives we re discussed and any questions were answered. Informed consent was obtained. The patient was placed s upine on the ultrasound table and prepped and draped in the usual sterile fashion. All elements of maximal barrier technique were utilized. Under ultrasound guidance, access into the right lower quadrant was obtained, via the paracentesis catheter system and direct ultrasound guidanc e. Approximately 6.4 liters of straw-colored fluid was removed. The patient was stable throughout the pr ocedure and remained stable upon discharge from Department of Radiology. IMPRESSION: Successful therapeutic paracentesis under ultrasound guidance.
== END 2022-07-18 11:11 | disposition home or self-care (01) ==
LOC: RADPROMAIN 08:33
PROVIDERS: ATTEND Internal Medicine Gastroenterology
DX: R18.8 Other ascites (principal)
CPT/HCPCS: 82565; 82947; 85049; 85610; 49083; P9047; J1642

== ENCOUNTER 2022-07-25 08:38 | Day surgery (SDC) | payer MEDICARE ==
[2022-07-25 08:55] LABS: Glucose,Whole Blood 114 mg/dL (70-110)
[2022-07-25] MEDS: ALBUMIN HUMAN 25% 50 ML in EMPTY BAG 1 BAG IVPB SCH ×3 (09:25→10:56)
[2022-07-25 09:31] VITALS: RESP 16; TEMP 97.7
[2022-07-25 10:46] VITALS: BP 125/68; PULSE 78
--- NOTE | 2022-07-25 14:03 | US ---
EXAMINATION TYPE: US paracentesis abd w/image DATE OF EXAM: 07/25/2022 CLINICAL HISTORY: Ascites The procedure was discussed with the patient. The risks, complications, benefits, and alternatives we re discussed and any questions were answered. Informed consent was obtained. The patient was placed s upine on the ultrasound table and prepped and draped in the usual sterile fashion. All elements of maximal barrier technique were utilized ultrasound guidance was used to ivone an appro priate site in the right lower quadrant and axis to the ascites was obtained with a paracentesis cath eter. Approximately 5850 mL of straw-colored fluid was removed. The patient was stable throughout the proce dure and remained stable upon discharge from Department of Radiology. IMPRESSION: Successful therapeutic paracentesis under ultrasound guidance.
== END 2022-07-25 10:45 | disposition home or self-care (01) ==
LOC: RADPROMAIN 08:38
PROVIDERS: ATTEND Internal Medicine Gastroenterology
DX: R18.8 Other ascites (principal)
CPT/HCPCS: 49083; P9047; J1642

== ENCOUNTER 2022-08-01 08:35 | Day surgery (SDC) | payer MEDICARE ==
[2022-08-01 09:33] LABS: Platelet Count 221 k/uL (150-450)
[2022-08-01 09:34] LABS: INR 1.1 (<1.2); Prothrombin Time 11.8 sec (9.0-12.0)
[2022-08-01 09:42] VITALS: RESP 16; TEMP 97.5
[2022-08-01] MEDS: ALBUMIN HUMAN 25% 50 ML in EMPTY BAG 1 BAG IVPB SCH ×3 (09:45→10:42)
[2022-08-01 11:03] VITALS: BP 141/76; PULSE 74
--- NOTE | 2022-08-01 12:09 | US ---
Ultrasound-guided paracentesis. DATE OF EXAM: 08/01/2022 CLINICAL HISTORY: Ascites The procedure was discussed with the patient. The risks, complications, benefits, and alternatives we re discussed and any questions were answered. Informed consent was obtained. The patient was placed s upine on the ultrasound table and prepped and draped in the usual sterile fashion. All elements of maximal barrier technique were utilized. Under ultrasound guidance, access into the right lower quadrant was obtained, via the paracentesis catheter system and direct ultrasound guidanc e. Approximately 5.5 liters of straw-colored fluid was removed. The patient was stable throughout the pr ocedure and remained stable upon discharge from Department of Radiology. IMPRESSION: Successful paracentesis under ultrasound guidance.
== END 2022-08-01 11:04 | disposition home or self-care (01) ==
LOC: RADPROMAIN 08:35
PROVIDERS: ATTEND Internal Medicine Gastroenterology
DX: R18.8 Other ascites (principal)
CPT/HCPCS: 82565; 82947; 85049; 85610; 49083; P9047; J1642

== ENCOUNTER → 2022-08-04 | Outpatient (CLI) | payer MEDICARE ==
[2022-08-04 14:49] LABS: Basophils # (A) 0.04 X 10*3/uL (0.00-0.10); Basophils % (A) 0.6 %; Eosinophils # (A) 0.14 X 10*3/uL (0.04-0.35); Eosinophils % (A) 2.1 %; HCT 38.8 % (37.2-46.3); HGB 12.7 g/dL (12.0-15.0); Immature Grans, Automated 0.6 %; Lymphocytes # (A) 0.36 X 10*3/uL (0.90-5.00); Lymphocytes % (A) 5.3 %; MCH 30.2 pg (27.0-32.0); MCHC 32.7 g/dL (32.0-37.0); MCV 92.4 fL (80.0-97.0); Mean Platelet Volume 12.7 fL (9.5-12.2); Monocytes # (A) 0.56 X 10*3/uL (0.20-1.00); Monocytes % (A) 8.3 %; NRBC Per 100 WBC 0 /100 WBCS (0.0-0.0); Neutrophils # (A) 5.62 X 10*3/uL (1.80-7.70); Neutrophils % (A) 83.1 %; Platelet Count 256 X 10*3/uL (140-440); RDW 14.8 % (11.5-14.5); WBC 6.76 X 10*3/uL (4.50-10.00)
[2022-08-04 15:02] LABS: Appearance,Urine Clear (Clear); Bilirubin,Urine Negative (Negative); Blood,Urine Negative (Negative); Color,Urine Yellow (Yellow); Ketones,Urine Negative (Negative); Nitrite,Urine Negative (Negative); Specific Gravity,Urine 1.009 (1.001-1.030); Urobilinogen,Urine 0.2 (0.2,1.0)
[2022-08-04 15:13] LABS: % Iron Saturation 25.08 (12.00-45.00); African American GFR (CKD) 44.6 (60.0-200.0); Anion Gap 18.9 mmol/L (10.00-18.00); BUN/Creat Ratio 29.23 Ratio (12.00-20.00); Calcium 8.8 mg/dL (8.7-10.3); Carbon Dioxide 16.1 mmol/L (20.0-27.5); Magnesium 2.2 mg/dL (1.5-2.4); Non-African American GFR(CKD) 38.4 (60.0-200.0); Phosphorus 3.6 mg/dL (2.4-5.1); Potassium 4.7 mmol/L (3.5-5.5); Uric Acid 7.4 mg/dL (2.9-7.7)
[2022-08-04 22:42] LABS: Urine Creatinine 26.3 mg/dL (28.0-217.0)
== END | disposition home or self-care (01) ==
LOC: LABWHC1 08:18
PROVIDERS: ATTEND Nurse Practitioner Family
DX: N25.81 Secondary hyperparathyroidism of renal origin (principal); N18.32 Chronic kidney disease, stage 3b; D63.1 Anemia in chronic kidney disease; N39.0 Urinary tract infection, site not specified; E55.9 Vitamin D deficiency, unspecified; M10.9 Gout, unspecified
CPT/HCPCS: 36415; 80048; 81003; 82043; 82306; 82570; 83540; 83550; 83735; 83970; 84100; 84550; 85025

== ENCOUNTER 2022-08-08 08:34 | Day surgery (SDC) | payer MEDICARE ==
[2022-08-08 09:25] LABS: Glucose,Whole Blood 121 mg/dL (70-110)
[2022-08-08 09:34] VITALS: RESP 16; TEMP 98
[2022-08-08] MEDS: ALBUMIN HUMAN 25% 50 ML in EMPTY BAG 1 BAG IVPB SCH ×3 (09:51→10:29)
[2022-08-08 11:10] VITALS: BP 132/73; PULSE 85
--- NOTE | 2022-08-08 13:03 | US ---
Ultrasound-guided paracentesis. DATE OF EXAM: 08/08/2022 CLINICAL HISTORY: Ascites The procedure was discussed with the patient. The risks, complications, benefits, and alternatives we re discussed and any questions were answered. Informed consent was obtained. The patient was placed s upine on the ultrasound table and prepped and draped in the usual sterile fashion. All elements of maximal barrier technique were utilized. Under ultrasound guidance, access into the right lower quadrant was obtained, via the paracentesis catheter system and direct ultrasound guidanc e. Approximately 5.5 liters of straw-colored fluid was removed. The patient was stable throughout the pr ocedure and remained stable upon discharge from Department of Radiology. IMPRESSION: Successful paracentesis under ultrasound guidance.
== END 2022-08-08 10:55 | disposition home or self-care (01) ==
LOC: RADPROMAIN 08:34
PROVIDERS: ATTEND Internal Medicine Gastroenterology
DX: R18.8 Other ascites (principal)
CPT/HCPCS: 49083; P9047; J1642

== ENCOUNTER 2022-08-15 08:35 | Day surgery (SDC) | payer MEDICARE ==
[2022-08-15 09:06] LABS: Mean Platelet Volume 8.5; Platelet Count 185 k/uL (150-450)
[2022-08-15 09:29] LABS: INR 1.2 (<1.2)
[2022-08-15 09:34] VITALS: TEMP 98
[2022-08-15] MEDS: ALBUMIN HUMAN 25% 50 ML in EMPTY BAG 1 BAG IVPB SCH ×4 (09:38→10:34)
[2022-08-15 10:21] VITALS: RESP 18
--- NOTE | 2022-08-15 10:38 | US ---
Ultrasound-guided paracentesis. DATE OF EXAM: 08/15/2022 CLINICAL HISTORY: Ascites The procedure was discussed with the patient. The risks, complications, benefits, and alternatives we re discussed and any questions were answered. Informed consent was obtained. The patient was placed s upine on the ultrasound table and prepped and draped in the usual sterile fashion. All elements of maximal barrier technique were utilized. Under ultrasound guidance, access into the right lower quadrant was obtained, via the paracentesis catheter system and direct ultrasound guidanc e. Approximately 5.5 liters of straw-colored fluid was removed. The patient was stable throughout the pr ocedure and remained stable upon discharge from Department of Radiology. IMPRESSION: Successful paracentesis under ultrasound guidance.
[2022-08-15 11:07] VITALS: BP 137/73; PULSE 74
== END 2022-08-15 11:02 | disposition home or self-care (01) ==
LOC: RADPROMAIN 08:35
PROVIDERS: ATTEND Internal Medicine Gastroenterology
DX: R18.8 Other ascites (principal)
CPT/HCPCS: 82565; 82947; 85049; 85610; 49083; P9047; J1642

== ENCOUNTER 2022-08-22 08:36 | Day surgery (SDC) | payer MEDICARE ==
[2022-08-22] MEDS: ALBUMIN HUMAN 25% 50 ML in EMPTY BAG 1 BAG IVPB SCH ×3 (10:07→10:38)
[2022-08-22 10:30] VITALS: RESP 18; TEMP 97.8
[2022-08-22 11:13] VITALS: BP 114/60; PULSE 77
--- NOTE | 2022-08-22 13:11 | US ---
EXAMINATION TYPE: US paracentesis abd w/image DATE OF EXAM: 08/22/2022 CLINICAL HISTORY: Ascites The procedure was discussed with the patient. The risks, complications, benefits, and alternatives we re discussed and any questions were answered. Informed consent was obtained. The patient was placed s upine on the ultrasound table and prepped and draped in the usual sterile fashion. All elements of maximal barrier technique were utilized. Ultrasound was used to ivone an appropriate s ite in the right lower quadrant. Access to the ascites was obtained of the paracentesis catheter. Approximately 6.9 liters of clear yellow fluid was removed. The patient was stable throughout the pro cedure and remained stable upon discharge from Department of Radiology. IMPRESSION: Successful therapeutic paracentesis under ultrasound guidance.
== END 2022-08-22 11:20 | disposition home or self-care (01) ==
LOC: RADPROMAIN 08:36
PROVIDERS: ATTEND Internal Medicine Gastroenterology
DX: R18.8 Other ascites (principal)
CPT/HCPCS: 49083; P9047; J1642

== ENCOUNTER 2022-10-03 08:52 | Day surgery (SDC) | payer MEDICARE ==
[2022-10-03 09:29] LABS: Mean Platelet Volume 8.1; Platelet Count 215 k/uL (150-450)
[2022-10-03 09:56] LABS: INR 1.1 (<1.2); Prothrombin Time 11.5 sec (9.0-12.0)
[2022-10-03 09:58] VITALS: RESP 16; TEMP 98.5
[2022-10-03] MEDS: ALBUMIN HUMAN 25% 50 ML in EMPTY BAG 1 BAG IVPB SCH ×4 (10:01→10:55)
[2022-10-03 10:55] VITALS: BP 129/72; PULSE 76
--- NOTE | 2022-10-03 15:24 | US ---
EXAMINATION TYPE: US paracentesis abd w/image DATE OF EXAM: 10/03/2022 CLINICAL HISTORY: 82-year-old female here for weekly paracentesis. The procedure was discussed with the patient. The risks, complications, benefits, and alternatives we re discussed and any questions were answered. Informed consent was obtained. The patient was placed s upine on the ultrasound table and prepped and draped in the usual sterile fashion. All elements of maximal barrier technique were utilized. 1% local lidocaine was utilized. Ultrasound was utilized to determine the precise skin entry site, along the right lower quadrant. Utilizing 6 English safety centesis catheter and trocar technique, the catheter was placed into the ri ght lower quadrant ascites collection and aspiration yielded 6.1 L of clear straw-colored fluid. The catheter was removed, hemostasis obtained, and dressing placed. Estimated blood loss: Minimal. The patient was stable throughout the procedure and remained stable upon discharge from Department of Radiology. IMPRESSION: Successful weekly therapeutic paracentesis under ultrasound guidance, 6.1 L removed.
== END 2022-10-03 11:13 | disposition home or self-care (01) ==
LOC: RADPROMAIN 08:52
PROVIDERS: ATTEND Internal Medicine Gastroenterology
DX: R18.8 Other ascites (principal)
CPT/HCPCS: 82565; 82947; 85049; 85610; 49083; P9047; J1642

== ENCOUNTER → 2022-10-08 | Outpatient (CLI) | payer MEDICARE ==
--- NOTE | 2022-10-08 12:33 | XR ---
EXAM TYPE: LUMBAR SPINE X RAY SERIES COMPARISON: NONE HISTORY: Low back pain TECHNIQUE: 4 views are submitted. FINDINGS: Alignment is anatomic. The pedicles are intact. The transverse processes are intact. There is diff use osteopenia with severe degenerative disc disease at all levels postsurgical changes at levels L3- L5. Chronic appearing endplate deformity of L3. Nonspecific sclerosis involving the L5 segment. IMPRESSION: 1. Postsurgical change with severe multilevel degenerative disc disease. There is chronic superior en dplate compression fracture L3. There is increased sclerosis involving the L5 segment recommended fol low-up CT scan for further evaluation 2. Suspect multilevel foraminal encroachment.
== END | disposition home or self-care (01) ==
LOC: RADXRMAIN 12:03
PROVIDERS: ATTEND Physical Medicine & Rehabilitation
DX: M48.56XA Collapsed vertebra, not elsewhere classified, lumbar region, initial encounter for fracture (principal); M51.86 Other intervertebral disc disorders, lumbar region
CPT/HCPCS: 72110

== ENCOUNTER 2022-10-10 08:46 | Day surgery (SDC) | payer MEDICARE ==
[2022-10-10 09:11] VITALS: TEMP 97.8
[2022-10-10 09:29] LABS: Glucose,Whole Blood 149 mg/dL (70-110)
[2022-10-10] MEDS: ALBUMIN HUMAN 25% 50 ML in EMPTY BAG 1 BAG IVPB SCH ×4 (09:54→10:44)
[2022-10-10 10:43] VITALS: RESP 16
[2022-10-10 11:13] VITALS: BP 137/76; PULSE 88
--- NOTE | 2022-10-10 11:53 | US ---
Ultrasound-guided paracentesis. DATE OF EXAM: 10/10/2022 CLINICAL HISTORY: Ascites The procedure was discussed with the patient. The risks, complications, benefits, and alternatives we re discussed and any questions were answered. Informed consent was obtained. The patient was placed s upine on the ultrasound table and prepped and draped in the usual sterile fashion. All elements of maximal barrier technique were utilized. Under ultrasound guidance, access into the right lower quadrant was obtained, via the paracentesis catheter system and direct ultrasound guidanc e. Approximately 6.4 liters of straw-colored fluid was removed. The patient was stable throughout the pr ocedure and remained stable upon discharge from Department of Radiology. IMPRESSION: Successful paracentesis under ultrasound guidance.
== END 2022-10-10 11:00 | disposition home or self-care (01) ==
LOC: RADPROMAIN 08:46
PROVIDERS: ATTEND Internal Medicine Gastroenterology
DX: R18.8 Other ascites (principal)
CPT/HCPCS: 49083; P9047; J1642

== ENCOUNTER 2022-10-17 08:44 | Day surgery (SDC) | payer MEDICARE ==
[2022-10-17 09:51] LABS: Platelet Count 229 k/uL (150-450)
[2022-10-17 10:00] LABS: INR 1.3 (<1.2)
[2022-10-17] MEDS: ALBUMIN HUMAN 25% 50 ML in EMPTY BAG 1 BAG IVPB SCH ×4 (10:15→11:20)
[2022-10-17 10:19] VITALS: RESP 18
[2022-10-17 10:41] VITALS: TEMP 98
--- NOTE | 2022-10-17 11:05 | US ---
Ultrasound-guided paracentesis. DATE OF EXAM: 10/17/2022 CLINICAL HISTORY: Ascites The procedure was discussed with the patient. The risks, complications, benefits, and alternatives we re discussed and any questions were answered. Informed consent was obtained. The patient was placed s upine on the ultrasound table and prepped and draped in the usual sterile fashion. All elements of maximal barrier technique were utilized. Under ultrasound guidance, access into the right lower quadrant was obtained, via the paracentesis catheter system and direct ultrasound guidanc e. The patient was stable throughout the procedure and remained stable upon discharge from Department of Radiology. IMPRESSION: Successful paracentesis under ultrasound guidance.
[2022-10-17 11:10] VITALS: PULSE 79
[2022-10-17 11:55] VITALS: BP 118/78
== END 2022-10-17 11:40 | disposition home or self-care (01) ==
LOC: RADPROMAIN 08:44
PROVIDERS: ATTEND Internal Medicine Gastroenterology
DX: R18.8 Other ascites (principal)
CPT/HCPCS: 82565; 82947; 85049; 85610; 49083; P9047; J1642

== ENCOUNTER 2022-10-24 08:40 | Day surgery (SDC) | payer MEDICARE ==
[2022-10-24 09:20] LABS: Platelet Count 222 k/uL (150-450)
[2022-10-24 09:23] VITALS: TEMP 98.5
[2022-10-24 09:37] LABS: INR 1.2 (<1.2); Prothrombin Time 12.7 sec (9.0-12.0)
[2022-10-24] MEDS: ALBUMIN HUMAN 25% 50 ML in EMPTY BAG 1 BAG IVPB SCH ×4 (09:44→10:36)
[2022-10-24 09:58] VITALS: RESP 16
--- NOTE | 2022-10-24 10:13 | US ---
Ultrasound-guided paracentesis. DATE OF EXAM: 10/24/2022 CLINICAL HISTORY: Ascites The procedure was discussed with the patient. The risks, complications, benefits, and alternatives we re discussed and any questions were answered. Informed consent was obtained. The patient was placed s upine on the ultrasound table and prepped and draped in the usual sterile fashion. All elements of maximal barrier technique were utilized. Under ultrasound guidance, access into the right lower quadrant was obtained, via the paracentesis catheter system and direct ultrasound guidanc e. The patient was stable throughout the procedure and remained stable upon discharge from Department of Radiology. IMPRESSION: Successful paracentesis under ultrasound guidance.
[2022-10-24 10:39] VITALS: PULSE 88
[2022-10-24 11:04] VITALS: BP 136/69
== END 2022-10-24 11:00 | disposition home or self-care (01) ==
LOC: RADPROMAIN 08:40
PROVIDERS: ATTEND Internal Medicine Gastroenterology
DX: R18.8 Other ascites (principal)
CPT/HCPCS: 82565; 82947; 85049; 85610; 49083; P9047; J1642

== ENCOUNTER 2022-10-31 08:44 | Day surgery (SDC) | payer MEDICARE ==
[2022-10-31 09:36] LABS: Glucose,Whole Blood 111 mg/dL (70-110)
[2022-10-31] MEDS: ALBUMIN HUMAN 25% 50 ML in EMPTY BAG 1 BAG IVPB SCH ×4 (09:52→11:03)
[2022-10-31 10:19] VITALS: RESP 18; TEMP 97.4
--- NOTE | 2022-10-31 10:45 | US ---
Ultrasound-guided paracentesis. DATE OF EXAM: 10/31/2022 CLINICAL HISTORY: Ascites The procedure was discussed with the patient. The risks, complications, benefits, and alternatives we re discussed and any questions were answered. Informed consent was obtained. The patient was placed s upine on the ultrasound table and prepped and draped in the usual sterile fashion. All elements of maximal barrier technique were utilized. Under ultrasound guidance, access into the right lower quadrant was obtained, via the paracentesis catheter system and direct ultrasound guidanc e. The patient was stable throughout the procedure and remained stable upon discharge from Department of Radiology. IMPRESSION: Successful paracentesis under ultrasound guidance.
[2022-10-31 11:28] VITALS: BP 119/64; PULSE 77
== END 2022-10-31 11:35 | disposition home or self-care (01) ==
LOC: RADPROMAIN 08:44
PROVIDERS: ATTEND Internal Medicine Gastroenterology
DX: R18.8 Other ascites (principal)
CPT/HCPCS: 49083; P9047; J1642

== ENCOUNTER 2022-11-07 08:41 | Day surgery (SDC) | payer MEDICARE ==
[2022-11-07 09:25] LABS: Mean Platelet Volume 8.2; Platelet Count 199 k/uL (150-450)
[2022-11-07 09:51] LABS: INR 1.2 (<1.2); Prothrombin Time 12.7 sec (9.0-12.0)
[2022-11-07] MEDS: ALBUMIN HUMAN 25% 50 ML in EMPTY BAG 1 BAG IVPB SCH ×2 (09:53→10:33)
[2022-11-07 09:56] VITALS: RESP 18
--- NOTE | 2022-11-07 10:47 | US ---
Ultrasound-guided paracentesis. DATE OF EXAM: 11/07/2022 CLINICAL HISTORY: Ascites The procedure was discussed with the patient. The risks, complications, benefits, and alternatives we re discussed and any questions were answered. Informed consent was obtained. The patient was placed s upine on the ultrasound table and prepped and draped in the usual sterile fashion. All elements of maximal barrier technique were utilized. Under ultrasound guidance, access into the right lower quadrant was obtained, via the paracentesis catheter system and direct ultrasound guidanc e. The patient was stable throughout the procedure and remained stable upon discharge from Department of Radiology. IMPRESSION: Successful paracentesis under ultrasound guidance.
[2022-11-07 12:36] VITALS: BP 118/70; PULSE 74
== END 2022-11-07 11:10 | disposition home or self-care (01) ==
LOC: RADPROMAIN 08:41
PROVIDERS: ATTEND Internal Medicine Gastroenterology
DX: R18.8 Other ascites (principal)
CPT/HCPCS: 82565; 82947; 85049; 85610; 49083; P9047; J1642

== ENCOUNTER 2022-11-14 08:49 | Day surgery (SDC) | payer MEDICARE ==
[2022-11-14 09:19] LABS: Glucose,Whole Blood 99 mg/dL (70-110)
[2022-11-14 09:48] VITALS: RESP 18; TEMP 98
[2022-11-14] MEDS: ALBUMIN HUMAN 25% 50 ML in EMPTY BAG 1 BAG IVPB SCH ×2 (09:53→10:25)
--- NOTE | 2022-11-14 10:48 | US ---
Ultrasound-guided paracentesis. DATE OF EXAM: 11/14/2022 CLINICAL HISTORY: Ascites The procedure was discussed with the patient. The risks, complications, benefits, and alternatives we re discussed and any questions were answered. Informed consent was obtained. All elements of maximal barrier technique were utilized. Limited grayscale ultrasound of the abdomen demonstrates ascites. An appropriate skin entry site was marked, prepped, and draped in usual sterile fashion. 1% lidocaine was administered to the skin and d eeper soft tissues. A small skin incision was made. A 5 Mongolian open the catheter was advanced into th e peritoneal cavity. Clear, serous fluid was removed. The needle was then removed and a sterile dress ing was placed. The patient was stable throughout the procedure and remained stable upon discharge from Department of Radiology. IMPRESSION: Successful, uncomplicated ultrasound-guided paracentesis.
[2022-11-14 11:41] VITALS: BP 124/72; PULSE 74
== END 2022-11-14 11:35 | disposition home or self-care (01) ==
LOC: RADPROMAIN 08:49
PROVIDERS: ATTEND Internal Medicine Gastroenterology
DX: R18.8 Other ascites (principal)
CPT/HCPCS: 49083; P9047; J1642

== ENCOUNTER 2022-11-21 08:49 | Day surgery (SDC) | payer MEDICARE ==
[2022-11-21 09:19] LABS: Mean Platelet Volume 7.8; Platelet Count 225 k/uL (150-450)
[2022-11-21 09:28] LABS: INR 1.2 (<1.2); Prothrombin Time 12.3 sec (9.0-12.0)
[2022-11-21] MEDS: ALBUMIN HUMAN 25% 50 ML in EMPTY BAG 1 BAG IVPB SCH ×4 (09:46→10:40)
[2022-11-21 10:00] VITALS: RESP 16; TEMP 97.4
[2022-11-21 11:01] VITALS: BP 126/65; PULSE 72
--- NOTE | 2022-11-21 11:33 | US ---
Ultrasound-guided paracentesis. DATE OF EXAM: 11/21/2022 CLINICAL HISTORY: Ascites The procedure was discussed with the patient. The risks, complications, benefits, and alternatives we re discussed and any questions were answered. Informed consent was obtained. The patient was placed s upine on the ultrasound table and prepped and draped in the usual sterile fashion. All elements of maximal barrier technique were utilized. Under ultrasound guidance, access into the right lower quadrant was obtained, via the paracentesis catheter system and direct ultrasound guidanc e. Approximately 6.1 liters of straw-colored fluid was removed. The patient was stable throughout the pr ocedure and remained stable upon discharge from Department of Radiology. IMPRESSION: Successful paracentesis under ultrasound guidance.
== END 2022-11-21 11:03 | disposition home or self-care (01) ==
LOC: RADPROMAIN 08:49
PROVIDERS: ATTEND Internal Medicine Gastroenterology
DX: R18.8 Other ascites (principal)
CPT/HCPCS: 82565; 82947; 85049; 85610; 49083; P9047; J1642

== ENCOUNTER 2022-12-05 09:07 | Day surgery (SDC) | payer MEDICARE ==
[2022-12-05 09:34] LABS: Glucose,Whole Blood 138 mg/dL (70-110)
[2022-12-05 09:35] VITALS: TEMP 97.9
[2022-12-05] MEDS: ALBUMIN HUMAN 25% 50 ML in EMPTY BAG 1 BAG IVPB SCH ×3 (10:00→10:42)
[2022-12-05 10:07] VITALS: RESP 16
--- NOTE | 2022-12-05 11:28 | US ---
Ultrasound-guided paracentesis. DATE OF EXAM: 12/05/2022 CLINICAL HISTORY: Ascites The procedure was discussed with the patient. The risks, complications, benefits, and alternatives we re discussed and any questions were answered. Informed consent was obtained. The patient was placed s upine on the ultrasound table and prepped and draped in the usual sterile fashion. All elements of maximal barrier technique were utilized. Under ultrasound guidance, access into the right lower quadrant was obtained, via the paracentesis catheter system and direct ultrasound guidanc e. Approximately 5.5 liters of straw-colored fluid was removed. The patient was stable throughout the pr ocedure and remained stable upon discharge from Department of Radiology. IMPRESSION: Successful paracentesis under ultrasound guidance.
[2022-12-05 11:31] VITALS: BP 131/74; PULSE 75
== END 2022-12-05 11:15 | disposition home or self-care (01) ==
LOC: RADPROMAIN 09:07
PROVIDERS: ATTEND Internal Medicine Gastroenterology
DX: R18.8 Other ascites (principal)
CPT/HCPCS: 49083; P9047; J1642

== ENCOUNTER 2022-12-12 08:55 | Day surgery (SDC) | payer MEDICARE ==
[2022-12-12 09:37] LABS: Platelet Count 229 k/uL (150-450)
[2022-12-12 09:42] LABS: INR 1.3 (<1.2); Prothrombin Time 12.9 sec (9.0-12.0)
[2022-12-12] MEDS: ALBUMIN HUMAN 25% 50 ML in EMPTY BAG 1 BAG IVPB SCH ×3 (10:48→16:11)
[2022-12-12 10:51] VITALS: RESP 18; TEMP 97.9
--- NOTE | 2022-12-12 11:36 | US ---
Ultrasound-guided paracentesis. DATE OF EXAM: 12/12/2022 CLINICAL HISTORY: Ascites The procedure was discussed with the patient. The risks, complications, benefits, and alternatives we re discussed and any questions were answered. Informed consent was obtained. The patient was placed s upine on the ultrasound table and prepped and draped in the usual sterile fashion. All elements of maximal barrier technique were utilized. Under ultrasound guidance, access into the right lower quadrant was obtained, via the paracentesis catheter system and direct ultrasound guidanc e. Approximately 5 liters of straw-colored fluid was removed. The patient was stable throughout the proc edure and remained stable upon discharge from Department of Radiology. IMPRESSION: Successful paracentesis under ultrasound guidance.
[2022-12-12 16:15] VITALS: BP 154/74; PULSE 68
== END 2022-12-12 11:30 | disposition home or self-care (01) ==
LOC: RADPROMAIN 08:55
PROVIDERS: ATTEND Internal Medicine Gastroenterology
DX: R18.8 Other ascites (principal)
CPT/HCPCS: 82565; 82947; 85049; 85610; 49083; P9047

== ENCOUNTER 2022-12-19 08:54 | Day surgery (SDC) | payer MEDICARE ==
[2022-12-19 09:22] LABS: Glucose,Whole Blood 139 mg/dL (70-110)
[2022-12-19 09:39] VITALS: RESP 16; TEMP 98.2
[2022-12-19] MEDS: ALBUMIN HUMAN 25% 50 ML in EMPTY BAG 1 BAG IVPB SCH ×4 (10:24→11:18)
[2022-12-19 11:10] VITALS: PULSE 90
[2022-12-19 11:19] VITALS: BP 134/70
--- NOTE | 2022-12-19 16:42 | US ---
EXAMINATION TYPE: US paracentesis abd w/image DATE OF EXAM: 12/19/2022 CLINICAL HISTORY: 82-year-old female R1 8.8, routine paracentesis The procedure was discussed with the patient. The risks, complications, benefits, and alternatives we re discussed and any questions were answered. Informed consent was obtained. The patient was placed s upine on the ultrasound table and prepped and draped in the usual sterile fashion. All elements of maximal barrier technique were utilized. Under ultrasound guidance, access into the right lower quadrant was obtained, via the 5 Setswana paracentesis catheter system and direct ultrasoun d guidance. Approximately 5.5 liters of clear straw-colored fluid was removed. The patient was stable throughout the procedure and remained stable upon discharge from Department of Radiology. IMPRESSION: Successful therapeutic paracentesis under ultrasound guidance with 5.5 L of fluid removed.
== END 2022-12-19 11:30 | disposition home or self-care (01) ==
LOC: RADPROMAIN 08:54
PROVIDERS: ATTEND Internal Medicine Gastroenterology
DX: R18.8 Other ascites (principal)
CPT/HCPCS: 49083; P9047

== ENCOUNTER 2022-12-26 08:44 | Day surgery (SDC) | payer MEDICARE ==
[2022-12-26 09:25] LABS: Mean Platelet Volume 8.2; Platelet Count 238 k/uL (150-450)
[2022-12-26 09:34] LABS: INR 1.3 (<1.2); Prothrombin Time 13.2 sec (9.0-12.0)
[2022-12-26 09:37] VITALS: RESP 16; TEMP 98.2
[2022-12-26] MEDS: ALBUMIN HUMAN 25% 50 ML in EMPTY BAG 1 BAG IVPB SCH ×3 (10:11→10:49)
[2022-12-26 11:47] VITALS: BP 134/75; PULSE 70
--- NOTE | 2022-12-26 12:50 | US ---
Ultrasound-guided paracentesis. DATE OF EXAM: 12/26/2022 CLINICAL HISTORY: Ascites The procedure was discussed with the patient. The risks, complications, benefits, and alternatives we re discussed and any questions were answered. Informed consent was obtained. The patient was placed s upine on the ultrasound table and prepped and draped in the usual sterile fashion. All elements of maximal barrier technique were utilized. Under ultrasound guidance, access into the right lower quadrant was obtained, via the paracentesis catheter system and direct ultrasound guidanc e. Approximately 6 liters of straw-colored fluid was removed. The patient was stable throughout the proc edure and remained stable upon discharge from Department of Radiology. IMPRESSION: Successful paracentesis under ultrasound guidance.
== END 2022-12-26 11:12 | disposition home or self-care (01) ==
LOC: RADPROMAIN 08:44
PROVIDERS: ATTEND Internal Medicine Gastroenterology
DX: R18.8 Other ascites (principal)
CPT/HCPCS: 82565; 82947; 85049; 85610; 49083; P9047; J1642

== ENCOUNTER → 2022-12-26 | Outpatient (CLI) | payer MEDICARE ==
[2022-12-26 20:04] LABS: % Iron Saturation 9.8 (12.00-45.00); African American GFR (CKD) 46.7 (60.0-200.0); Anion Gap 14.2 mmol/L (10.00-18.00); BUN/Creat Ratio 26.56 Ratio (12.00-20.00); Blood Urea Nitrogen 33.2 mg/dL (9.0-27.0); Calcium 9.1 mg/dL (8.7-10.3); Carbon Dioxide 22.9 mmol/L (20.0-27.5); Magnesium 2.5 mg/dL (1.5-2.4); Non-African American GFR(CKD) 40.3 (60.0-200.0); Phosphorus 3.2 mg/dL (2.4-5.1); Potassium 5.2 mmol/L (3.5-5.5); Uric Acid 8.1 mg/dL (2.9-7.7)
[2022-12-27 01:37] LABS: Appearance,Urine Clear (Clear); Bilirubin,Urine Negative (Negative); Blood,Urine Negative (Negative); Color,Urine Light Yellow; Glucose,Urine (UA) Negative (Negative); Ketones,Urine Negative (Negative); Leukocyte Esterase,Urine Negative (Negative); Nitrite,Urine Negative (Negative); Protein,Urine Negative (Negative); Specific Gravity,Urine 1.014 (1.001-1.035); Urobilinogen,Urine <2.0 mg/dL (<2.0)
== END | disposition home or self-care (01) ==
LOC: LABWHC1 11:16
PROVIDERS: ATTEND Nurse Practitioner Family
DX: E55.9 Vitamin D deficiency, unspecified (principal); N39.0 Urinary tract infection, site not specified; N25.81 Secondary hyperparathyroidism of renal origin; M10.9 Gout, unspecified; D63.1 Anemia in chronic kidney disease; N18.32 Chronic kidney disease, stage 3b
CPT/HCPCS: 36415; 80048; 81003; 82043; 82306; 82570; 82728; 83540; 83550; 83735; 83970; 84100; 84550; 85027

== ENCOUNTER → 2022-12-30 | Outpatient (CLI) | payer MEDICARE ==
[2022-12-30 15:17] LABS: Basophils # (A) 0.04 X 10*3/uL; Basophils % (A) 0.6 %; Eosinophils # (A) 0.24 X 10*3/uL; Eosinophils % (A) 3.7 %; HCT 37.6 %; HGB 11.8 d/dL; Lymphocytes # (A) 0.44 X 10*3/uL; Lymphocytes % (A) 6.7 %; MCH 28.2 pg; MCHC 31.4 d/dL; MCV 89.7 FL; Mean Platelet Volume 11.8 FL; Monocytes # (A) 0.56 X 10*3/uL; Monocytes % (A) 8.6 %; NRBC Per 100 WBC 0 X 10*3/uL; Neutrophils % (A) 79.8 %; Platelet Count 307 X 10*3/uL; RBC 4.19 X 10*6/uL; RDW 13.9 %; WBC 6.52 X 10*3/uL
[2022-12-30 18:22] LABS: Microalbumin Creatinine Ratio <28 mg/g Cr; Urine Creatinine 43.2 mg/dL
== END | disposition home or self-care (01) ==
LOC: LABWHC1 08:18
PROVIDERS: ATTEND Nurse Practitioner Family
DX: N25.81 Secondary hyperparathyroidism of renal origin (principal); N18.32 Chronic kidney disease, stage 3b; D63.1 Anemia in chronic kidney disease; N39.0 Urinary tract infection, site not specified; E55.9 Vitamin D deficiency, unspecified; M10.9 Gout, unspecified
CPT/HCPCS: 36415; 82043; 82570; 85025

== ENCOUNTER 2023-01-02 08:47 | Day surgery (SDC) | payer MEDICARE ==
[2023-01-02 09:30] LABS: Mean Platelet Volume 8.1; Platelet Count 240 k/uL (150-450)
[2023-01-02 09:38] LABS: INR 1.3 (<1.2); Prothrombin Time 13.2 sec (9.0-12.0)
[2023-01-02 09:41] LABS: African American GFR (CKD) 43 (>60 ml/min/1.73 sqM); Glucose 132 mg/dL (74-99); Non-African American GFR(CKD) 37 (>60 ml/min/1.73 sqM)
[2023-01-02 09:43] VITALS: RESP 16; TEMP 98.1
[2023-01-02 10:22] VITALS: PULSE 81
[2023-01-02] MEDS: ALBUMIN HUMAN 25% 50 ML in EMPTY BAG 1 BAG IVPB SCH ×4 (10:37→11:19)
[2023-01-02 11:19] VITALS: BP 121/67
--- NOTE | 2023-01-02 14:46 | US ---
EXAMINATION TYPE: US paracentesis abd w/image DATE OF EXAM: 01/02/2023 CLINICAL HISTORY: 82 year-old female R18.8, other ascites, routine outpatient paracentesis. The procedure was discussed with the patient. The risks, complications, benefits, and alternatives we re discussed and any questions were answered. Informed consent was obtained. The patient was placed s upine on the ultrasound table and prepped and draped in the usual sterile fashion. All elements of maximal barrier technique were utilized. Ultrasound was utilized to ivone the precise skin entry site, right lower quadrant. Utilizing a 6 Fren ch safety centesis catheter system and trocar technique, access into the right lower quadrant was obt ained. Approximately 5.75 liters of straw-colored fluid was removed. Catheter was removed, hemostasis obtained, and a dressing placed. The patient was stable throughout the procedure and remained stable upon discharge from Department of Radiology. IMPRESSION: Successful therapeutic paracentesis under ultrasound guidance. 5.8 L of fluid removed.
== END 2023-01-02 11:19 | disposition home or self-care (01) ==
LOC: RADPROMAIN 08:47
PROVIDERS: ATTEND Internal Medicine Gastroenterology
DX: R18.8 Other ascites (principal)
CPT/HCPCS: 82565; 82947; 85049; 85610; 36415; 49083; P9047; J1642

== ENCOUNTER 2023-01-09 08:42 | Day surgery (SDC) | payer MEDICARE ==
[2023-01-09 09:20] LABS: Glucose,Whole Blood 145 mg/dL (70-110)
[2023-01-09 09:35] VITALS: TEMP 98
[2023-01-09] MEDS: ALBUMIN HUMAN 25% 50 ML in EMPTY BAG 1 BAG IVPB SCH ×3 (10:26→10:58)
[2023-01-09 10:46] VITALS: PULSE 76; RESP 16
[2023-01-09 11:32] VITALS: BP 114/57
--- NOTE | 2023-01-09 13:08 | US ---
Ultrasound-guided paracentesis. DATE OF EXAM: 01/09/2023 CLINICAL HISTORY: Ascites The procedure was discussed with the patient. The risks, complications, benefits, and alternatives we re discussed and any questions were answered. Informed consent was obtained. The patient was placed s upine on the ultrasound table and prepped and draped in the usual sterile fashion. All elements of maximal barrier technique were utilized. Under ultrasound guidance, access into the right lower quadrant was obtained, via the paracentesis catheter system and direct ultrasound guidanc e. Approximately 6 liters of straw-colored fluid was removed. The patient was stable throughout the proc edure and remained stable upon discharge from Department of Radiology. IMPRESSION: Successful paracentesis under ultrasound guidance.
== END 2023-01-09 11:15 | disposition home or self-care (01) ==
LOC: RADPROMAIN 08:42
PROVIDERS: ATTEND Internal Medicine Gastroenterology
DX: R18.8 Other ascites (principal)
CPT/HCPCS: 49083; P9047; J1642

== ENCOUNTER 2023-01-16 08:52 | Day surgery (SDC) | payer MEDICARE ==
[2023-01-16 09:32] LABS: Mean Platelet Volume 8.5; Platelet Count 217 k/uL (150-450)
[2023-01-16 09:37] LABS: INR 1.3 (<1.2)
[2023-01-16 09:41] LABS: African American GFR (CKD) 43 (>60 ml/min/1.73 sqM); Glucose 161 mg/dL (74-99); Non-African American GFR(CKD) 37 (>60 ml/min/1.73 sqM)
[2023-01-16] MEDS: ALBUMIN HUMAN 25% 50 ML in EMPTY BAG 1 BAG IVPB SCH ×4 (10:41→11:39)
[2023-01-16 10:44] VITALS: RESP 16; TEMP 98
[2023-01-16 11:41] VITALS: BP 129/65; PULSE 90
--- NOTE | 2023-01-16 12:18 | US ---
Ultrasound-guided paracentesis. DATE OF EXAM: 01/16/2023 CLINICAL HISTORY: Ascites The procedure was discussed with the patient. The risks, complications, benefits, and alternatives we re discussed and any questions were answered. Informed consent was obtained. The patient was placed s upine on the ultrasound table and prepped and draped in the usual sterile fashion. All elements of maximal barrier technique were utilized. Under ultrasound guidance, access into the right lower quadrant was obtained, via the paracentesis catheter system and direct ultrasound guidanc e. Approximately 6 liters of straw-colored fluid was removed. The patient was stable throughout the proc edure and remained stable upon discharge from Department of Radiology. IMPRESSION: Successful paracentesis under ultrasound guidance.
== END 2023-01-16 11:55 | disposition home or self-care (01) ==
LOC: RADPROMAIN 08:52
PROVIDERS: ATTEND Internal Medicine Gastroenterology
DX: R18.8 Other ascites (principal)
CPT/HCPCS: 82565; 82947; 85049; 85610; 49083; P9047; J1642

== ENCOUNTER 2023-01-23 08:37 | Day surgery (SDC) | payer MEDICARE ==
[2023-01-23 09:33] VITALS: RESP 18; TEMP 98.2
[2023-01-23] MEDS: ALBUMIN HUMAN 25% 50 ML in EMPTY BAG 1 BAG IVPB SCH ×4 (10:10→11:32)
[2023-01-23 11:34] VITALS: BP 134/70; PULSE 94
--- NOTE | 2023-01-23 14:59 | US ---
Ultrasound-guided paracentesis. DATE OF EXAM: 01/23/2023 CLINICAL HISTORY: Ascites and swelling Comparison: Most recent study January 16, 2023 Technique and findings: The procedure was discussed with the patient. The risks, complications, benefits, and alternatives we re discussed and any questions were answered. Informed consent was obtained. The patient was placed supine on the ultrasound table and prepped and draped in the usual sterile fas hion. All elements of maximal barrier technique were utilized. Under ultrasound guidance, access into the right lower quadrant was obtained, via the paracentesis catheter system and direct ultrasound guidanc e. Approximately 6.9 liters of straw-colored fluid was removed. The patient was stable throughout the pr ocedure and remained stable upon discharge from Department of Radiology. IMPRESSION: Successful paracentesis under ultrasound guidance.
== END 2023-01-23 11:10 | disposition home or self-care (01) ==
LOC: RADPROMAIN 08:37
PROVIDERS: ATTEND Internal Medicine Gastroenterology
DX: R18.8 Other ascites (principal)
CPT/HCPCS: 49083; P9047

== ENCOUNTER 2023-01-30 08:36 | Day surgery (SDC) | payer MEDICARE ==
[2023-01-30 09:37] VITALS: RESP 16; TEMP 98.2
[2023-01-30 09:38] LABS: Mean Platelet Volume 8.3; Platelet Count 179 k/uL (150-450)
[2023-01-30 09:46] LABS: INR 1.3 (<1.2); Prothrombin Time 13.2 sec (9.0-12.0)
[2023-01-30 09:50] LABS: African American GFR (CKD) 47 (>60 ml/min/1.73 sqM); Glucose 103 mg/dL (74-99); Non-African American GFR(CKD) 41 (>60 ml/min/1.73 sqM)
[2023-01-30] MEDS: ALBUMIN HUMAN 25% 50 ML in EMPTY BAG 1 BAG IVPB SCH ×4 (10:20→11:13)
--- NOTE | 2023-01-30 11:12 | US ---
Ultrasound-guided paracentesis. DATE OF EXAM: 01/30/2023 CLINICAL HISTORY: Ascites The procedure was discussed with the patient. The risks, complications, benefits, and alternatives we re discussed and any questions were answered. Informed consent was obtained. The patient was placed s upine on the ultrasound table and prepped and draped in the usual sterile fashion. All elements of maximal barrier technique were utilized. Under ultrasound guidance, access into the right lower quadrant was obtained, via the paracentesis catheter system and direct ultrasound guidanc e. Approximately 7 liters of straw-colored fluid was removed. The patient was stable throughout the proc edure and remained stable upon discharge from Department of Radiology. IMPRESSION: Successful paracentesis under ultrasound guidance.
[2023-01-30 11:51] VITALS: BP 132/75; PULSE 75
== END 2023-01-30 11:40 ==
LOC: RADPROMAIN 08:36
PROVIDERS: ATTEND Internal Medicine Gastroenterology
DX: R18.8 Other ascites (principal)
CPT/HCPCS: 82565; 82947; 85049; 85610; 49083; P9047; J1642

== ENCOUNTER 2023-02-06 08:36 | Day surgery (SDC) | payer MEDICARE ==
[2023-02-06 09:16] LABS: Mean Platelet Volume 8.7; Platelet Count 242 k/uL (150-450)
[2023-02-06 09:18] VITALS: RESP 16; TEMP 97.7
[2023-02-06 09:22] LABS: INR 1.3 (<1.2); Prothrombin Time 13.4 sec (9.0-12.0)
[2023-02-06] MEDS: ALBUMIN HUMAN 25% 50 ML in EMPTY BAG 1 BAG IVPB SCH ×4 (09:42→10:53)
[2023-02-06 09:54] LABS: African American GFR (CKD) 49 (>60 ml/min/1.73 sqM); Glucose 148 mg/dL (74-99); Non-African American GFR(CKD) 43 (>60 ml/min/1.73 sqM)
--- NOTE | 2023-02-06 11:09 | US ---
Ultrasound-guided paracentesis. DATE OF EXAM: 02/06/2023 CLINICAL HISTORY: Ascites The procedure was discussed with the patient. The risks, complications, benefits, and alternatives we re discussed and any questions were answered. Informed consent was obtained. The patient was placed s upine on the ultrasound table and prepped and draped in the usual sterile fashion. All elements of maximal barrier technique were utilized. Under ultrasound guidance, access into the right lower quadrant was obtained, via the paracentesis catheter system and direct ultrasound guidanc e. Approximately 7 liters of straw-colored fluid was removed. The patient was stable throughout the proc edure and remained stable upon discharge from Department of Radiology. IMPRESSION: Successful paracentesis under ultrasound guidance.
[2023-02-06 11:49] VITALS: BP 148/77; PULSE 81
== END 2023-02-06 11:15 | disposition home or self-care (01) ==
LOC: RADPROMAIN 08:36
PROVIDERS: ATTEND Internal Medicine Gastroenterology
DX: R18.8 Other ascites (principal)
CPT/HCPCS: 82565; 82947; 85049; 85610; 49083; P9047; J1642

== ENCOUNTER 2023-02-13 08:54 | Day surgery (SDC) | payer MEDICARE ==
[2023-02-13 09:51] VITALS: RESP 16; TEMP 98.2
[2023-02-13 09:53] LABS: Mean Platelet Volume 8.8; Platelet Count 200 k/uL (150-450)
[2023-02-13 10:02] LABS: INR 1.3 (<1.2); Prothrombin Time 13.1 sec (9.0-12.0)
[2023-02-13 10:10] LABS: African American GFR (CKD) 45 (>60 ml/min/1.73 sqM); Glucose 145 mg/dL (74-99); Non-African American GFR(CKD) 39 (>60 ml/min/1.73 sqM)
[2023-02-13] MEDS: ALBUMIN HUMAN 25% 50 ML in EMPTY BAG 1 BAG IVPB SCH ×4 (10:16→11:19)
[2023-02-13 11:31] VITALS: BP 116/72; PULSE 72
--- NOTE | 2023-02-13 13:20 | US ---
Ultrasound-guided paracentesis. DATE OF EXAM: 02/13/2023 CLINICAL HISTORY: Ascites The procedure was discussed with the patient. The risks, complications, benefits, and alternatives we re discussed and any questions were answered. Informed consent was obtained. The patient was placed s upine on the ultrasound table and prepped and draped in the usual sterile fashion. All elements of maximal barrier technique were utilized. Under ultrasound guidance, access into the right lower quadrant was obtained, via the paracentesis catheter system and direct ultrasound guidanc e. Approximately 6.8 liters of straw-colored fluid was removed. The patient was stable throughout the pr ocedure and remained stable upon discharge from Department of Radiology. IMPRESSION: Successful paracentesis under ultrasound guidance.
== END 2023-02-13 11:20 | disposition home or self-care (01) ==
LOC: RADPROMAIN 08:54
PROVIDERS: ATTEND Internal Medicine Gastroenterology
DX: R18.8 Other ascites (principal)
CPT/HCPCS: 82565; 82947; 85049; 85610; 36415; 49083; P9047; J1642

== ENCOUNTER 2023-02-20 08:40 | Day surgery (SDC) | payer MEDICARE ==
[2023-02-20 09:29] VITALS: TEMP 97.3
[2023-02-20 09:33] LABS: Mean Platelet Volume 8.4; Platelet Count 212 k/uL (150-450)
[2023-02-20 09:38] LABS: INR 1.4 (<1.2); Prothrombin Time 14.2 sec (9.0-12.0)
[2023-02-20 09:49] LABS: African American GFR (CKD) 38 (>60 ml/min/1.73 sqM); Glucose 115 mg/dL (74-99); Non-African American GFR(CKD) 33 (>60 ml/min/1.73 sqM)
[2023-02-20] MEDS: ALBUMIN HUMAN 25% 50 ML in EMPTY BAG 1 BAG IVPB SCH ×4 (10:37→11:27)
[2023-02-20 10:43] VITALS: RESP 16
[2023-02-20 11:27] VITALS: BP 150/67; PULSE 73
--- NOTE | 2023-02-20 12:02 | US ---
EXAMINATION TYPE: US paracentesis abd w/image DATE OF EXAM: 02/20/2023 CLINICAL HISTORY: R18.8 ASCITIES The procedure was discussed with the patient. The risks, complications, benefits, and alternatives we re discussed and any questions were answered. Informed consent was obtained. The patient was placed s upine on the ultrasound table and prepped and draped in the usual sterile fashion. All elements of maximal barrier technique were utilized. Under ultrasound guidance, access into the right lower quadrant was obtained, via the paracentesis catheter system and direct ultrasound guidanc e. Approximately 7.25 liters of straw-colored fluid was removed. The patient was stable throughout the p rocedure and remained stable upon discharge from Department of Radiology. IMPRESSION: Successful therapeutic paracentesis under ultrasound guidance.
== END 2023-02-20 11:50 | disposition home or self-care (01) ==
LOC: RADPROMAIN 08:40
PROVIDERS: ATTEND Internal Medicine Gastroenterology
DX: R18.8 Other ascites (principal)
CPT/HCPCS: 82565; 82947; 85049; 85610; 49083; P9047; J1642

== ENCOUNTER 2023-02-27 08:46 | Day surgery (SDC) | payer MEDICARE ==
[2023-02-27 09:45] VITALS: RESP 18
[2023-02-27] MEDS: ALBUMIN HUMAN 25% 50 ML in EMPTY BAG 1 BAG IVPB SCH ×4 (10:10→11:48)
[2023-02-27 10:26] VITALS: BP 124/63; PULSE 74
--- NOTE | 2023-02-27 11:42 | US ---
Ultrasound-guided paracentesis. DATE OF EXAM: 02/27/2023 CLINICAL HISTORY: ascites The procedure was discussed with the patient. The risks, complications, benefits, and alternatives we re discussed and any questions were answered. Informed consent was obtained. The patient was placed s upine on the ultrasound table and prepped and draped in the usual sterile fashion. All elements of maximal barrier technique were utilized. Under ultrasound guidance, access into the right lower quadrant was obtained, via the paracentesis catheter system and direct ultrasound guidanc e. Approximately 7.6 liters of straw-colored fluid was removed. The patient was stable throughout the pr ocedure and remained stable upon discharge from Department of Radiology. IMPRESSION: Successful paracentesis under ultrasound guidance.
== END 2023-02-27 10:55 | disposition home or self-care (01) ==
LOC: RADPROMAIN 08:46
PROVIDERS: ATTEND Internal Medicine Gastroenterology
DX: R18.8 Other ascites (principal)
CPT/HCPCS: 49083; P9047; J1642

== ENCOUNTER 2023-03-13 08:46 | Day surgery (SDC) | payer MEDICARE ==
[2023-03-13 09:28] VITALS: RESP 16; TEMP 98.2
[2023-03-13 09:28] LABS: Mean Platelet Volume 7.9; Platelet Count 228 k/uL (150-450)
[2023-03-13 09:35] LABS: African American GFR (CKD) 46 (>60 ml/min/1.73 sqM); Non-African American GFR(CKD) 40 (>60 ml/min/1.73 sqM)
[2023-03-13 09:37] LABS: INR 1.3 (<1.2); Prothrombin Time 12.8 sec (9.0-12.0)
[2023-03-13 09:45] LABS: Glucose,Whole Blood 102 mg/dL (70-110)
[2023-03-13] MEDS: ALBUMIN HUMAN 25% 50 ML in EMPTY BAG 1 BAG IVPB SCH ×4 (10:01→10:48)
[2023-03-13 10:55] VITALS: BP 135/66; PULSE 74
--- NOTE | 2023-03-13 11:20 | US ---
Ultrasound-guided paracentesis. DATE OF EXAM: 03/13/2023 CLINICAL HISTORY: Ascites The procedure was discussed with the patient. The risks, complications, benefits, and alternatives we re discussed and any questions were answered. Informed consent was obtained. The patient was placed s upine on the ultrasound table and prepped and draped in the usual sterile fashion. All elements of maximal barrier technique were utilized. Under ultrasound guidance, access into the right lower quadrant was obtained, via the paracentesis catheter system and direct ultrasound guidanc e. Approximately 7 liters of straw-colored fluid was removed. The patient was stable throughout the proc edure and remained stable upon discharge from Department of Radiology. IMPRESSION: Successful paracentesis under ultrasound guidance.
== END 2023-03-13 11:10 | disposition home or self-care (01) ==
LOC: RADPROMAIN 08:46
PROVIDERS: ATTEND Internal Medicine Gastroenterology
DX: R18.8 Other ascites (principal)
CPT/HCPCS: 82565; 85049; 85610; 49083; P9047

== ENCOUNTER 2023-03-15 14:46 | Emergency (ER) | payer MEDICARE ==
[2023-03-15] MEDS ORDERED: HYDROmorphone 1 MG/ML 1 ML SYRINGE IM STA (15:05)
--- NOTE | 2023-03-15 15:08 | ED ---
General Adult HPI - General Chief complaint: Extremity Problem,Nontraumatic Stated complaint: L Arm Pain Time Seen by Provider: 03/15/23 15:01 Source: patient, EMS, RN notes reviewed Mode of arrival: EMS Limitations: physical limitation - History of Present Illness Initial comments: Patient is a pleasant 82-year-old female presenting to the emergency department left arm pain. Onset of symptoms was prior to arrival. Patient was bending over with the dog dish when she had sudden discomfort of the left arm. Patient is unclear if she may have bumped it. Patient has significant discomfort mostly near the elbow. Discomfort increases with any movement. No history of similar symptoms previously. No history of arm pain. No head injury or loss of consciousness. - Related Data Home Medications Medication Instructions Recorded Confirmed Levothyroxine Sodium [Synthroid] 25 mcg PO DAILY@0700 03/23/14 03/13/23 Montelukast [Singulair] 10 mg PO HS 03/23/14 03/13/23 oxyBUTYnin chloride [Ditropan XL] 10 mg PO HS 03/23/14 03/13/23 EPINEPHrine (Auto Inject) [Epipen] 0.3 mg IM ONCE PRN 04/13/20 03/13/23 Cholecalciferol [Vitamin D3 (25 1.5 mg PO WEEKLY 08/31/20 03/13/23 Mcg = 1000 Iu)] Midodrine [ProAmatine] 2.5 mg PO AC-TID 09/10/20 03/13/23 Escitalopram [Lexapro] 5 mg PO HS 10/12/20 03/13/23 sitaGLIPtin [Januvia] 50 mg PO DAILY 12/21/20 03/13/23 Furosemide [Lasix] 40 mg PO DAILY 01/22/21 03/13/23 Spironolactone [Aldactone] 25 mg PO DAILY 01/22/21 03/13/23 Thiamine [Vitamin B-1] 100 mg PO HS 01/22/21 03/13/23 Ferrous Sulfate [Iron (65 MG 325 mg PO DAILY 03/22/21 03/13/23 Elemental)] hydrOXYzine HCL [Atarax] 20 mg PO BID 03/22/21 03/13/23 Furosemide [Lasix] 20 mg PO HS 01/31/22 03/13/23 allopurinoL [Zyloprim] 100 mg PO DAILY 01/31/22 03/13/23 Bismuth Subsalicylate [Kaopectate] 262 mg PO DIRECTED PRN 08/22/22 03/13/23 HYDROcodone/APAP 10-325MG [Dorset 1 tab PO Q4HR PRN 01/09/23 03/13/23 10-325] Previous Rx's Medication Instructions Recorded Folic Acid 1 mg PO DAILY@1200 30 Days #30 tab 09/03/20 Cyclobenzaprine [Flexeril] 10 mg PO BID PRN 10 Days #20 tab 03/15/22 Allergies Allergy/AdvReac Type Severity Reaction Status Date / Time venom-wasp [Wasp Venom] Allergy Severe Swelling Verified 03/06/23 11:02 adhesive Allergy Unknown Rash/Hives Verified 03/06/23 11:02 amoxicillin [Amoxicillin] Allergy Unknown Rash/Hives, Verified 03/06/23 11:02 itching fenofibrate nanocrystallized Allergy Unknown Rash/Hives,joint Verified 03/06/23 11:02 [From Tricor] pain fenofibrate,micronized Allergy Unknown Rash/Hives, Verified 03/15/23 15:06 [From Tricor] joint pain hydrochlorothiazide Allergy Unknown Rash/Hives Verified 03/15/23 15:06 Neuromuscular Blockers, Allergy Unknown Rash/Hives Verified 03/15/23 15:06 Steroidal [Steroidal Neuromuscular Blockers] Penicillins Allergy Unknown Rash/Hives, Verified 03/15/23 15:06 red skin shellfish derived Allergy Unknown SKIN RED Verified 03/15/23 15:06 AND WARM simvastatin [From Zocor] Allergy Unknown Rash/Hives, Verified 03/15/23 15:06 joint pain Cwizrkh-UIC-BhM Reductase Allergy Unknown Rash/Hives, Verified 03/15/23 15:06 Inhibitor joint pain [Idjzzpb-Rnp-Vul Reductase Inhibitor] venom-honey bee Allergy Unknown Swelling Verified 03/15/23 15:06 [bee venom (honey bee)] cat dander Allergy Rash/Hives Verified 03/15/23 15:06 ciprofloxacin HCl Allergy Unknown Verified 03/15/23 15:06 [From Cipro] sulfamethoxazole Allergy Rash/Hives Verified 03/15/23 15:06 talc Allergy Rash/Hives Verified 03/15/23 15:06 walnut Allergy Rash/Hives Verified 03/15/23 15:06 clarithromycin AdvReac warm and Verified 03/15/23 15:06 flushed lactose AdvReac Abdominal Verified 03/15/23 15:06 Pain minocycline AdvReac warm and Verified 03/15/23 15:06 flushed peanut [Peanut Butter] AdvReac Nausea Verified 03/15/23 15:06 prednisone AdvReac Nausea Verified 03/15/23 15:06 soy AdvReac Nausea & Verified 03/15/23 15:06 Vomiting Review of Systems ROS Statement: Those systems with pertinent positive or pertinent negative responses have been documented in the HPI. ROS Other: All systems not noted in ROS Statement are negative. Constitutional: Denies: fever Eyes: Denies: eye pain ENT: Denies: ear pain Respiratory: Denies: cough Cardiovascular: Denies: chest pain Endocrine: Denies: fatigue Gastrointestinal: Denies: abdominal pain Genitourinary: Denies: dysuria Musculoskeletal: Reports: as per HPI Past Medical History Past Medical History: Atrial Fibrillation, Asthma, Cancer, Diabetes Mellitus, Fibromyalgia, GERD/Reflux, Hyperlipidemia, Hypertension, Liver Disease, Osteo arthritis (OA), Pulmonary Embolus (PE), Thyroid Disorder Additional Past Medical History / Comment(s): Pt recently admitted to [facility] on 08/14/20 with decompensated liver cirrhosis 2ndary to ALFONSO with ascities/acute diarrhea and anemia with transfusion. Other hx: Nonalcoholic fatty liver, liver cirrhosis, ascities with multiple paracentesis and has albumin infusions, esophageal varicies with banding, NIDDM type II, neuropathy bilateral legs/feet, spinal stenosis/low back pain with R side radiculopathy and lately has had pain down L leg, recent bilateral lower leg edema, PE after leg fracture, overactive bladder, hypothyroid, sinus problems, vertigo, bilateral macular degeneration,skin cancer, cellulits to left lower extemity on antibiotics 11/13/20 History of Any Multi-Drug Resistant Organisms: None Reported Past Surgical History: Adenoidectomy, Appendectomy, Back Surgery, Breast Surgery, Hysterectomy, Joint Replacement, Orthopedic Surgery, Tonsillectomy Additional Past Surgical History / Comment(s): Multiple large volume paracentesis procedures, lower back and cervical fusions, bilateral total knees, bilateral total shoulders, bilateral carpal tunnel releases, bilateral hand trigger finger releases, R foot bone spur removed, R leg fracture/hardware removed, R breast fatty tumor removed, EGD with esophageal varicies banded, colonoscopy, skin cancer removed, bilateral cataracts removed., right chest mediport Past Anesthesia/Blood Transfusion Reactions: Motion Sickness, Postoperative Nausea & Vomiting (PONV) Additional Past Anesthesia/Blood Transfusion Reaction / Comment(s): previous blood transfusions at [facility] Past Psychological History: No Psychological Hx Reported Smoking Status: Former smoker Past Alcohol Use History: None Reported Past Drug Use History: None Reported - Past Family History Mother History Unknown: Yes Family Medical History: No Reported History Additional Family Medical History / Comment(s): Mother was healthy and lived to be 87yrs old. Father History Unknown: Yes Additional Family Medical History / Comment(s): Father in a MVA Daughter(s) Family Medical History: Cancer General Exam Limitations: physical limitation General appearance: alert, in no apparent distress Head exam: Present: atraumatic Eye exam: Present: normal appearance, PERRL Neck exam: Present: normal inspection. Absent: tenderness Respiratory exam: Present: normal lung sounds bilaterally Cardiovascular Exam: Present: regular rate, normal rhythm Expanded Peripheral pulses: 2+: Radial (L) GI/Abdominal exam: Present: soft. Absent: tenderness Extremities exam: Present: tenderness (Mild tenderness left humerus. Mild to moderate tenderness left elbow region. Moderate tenderness left proximal forearm. Distally the extremity is neurovascularly intact.). Absent: full ROM (Limited by pain left arm) Neurological exam: Present: alert, oriented X3. Absent: motor sensory deficit Psychiatric exam: Present: normal affect, normal mood Skin exam: Present: normal color Course Vital Signs 03/15/23 03/15/23 14:53 15:16 Temperature 98.4 F Pulse Rate 100 100 Respiratory 20 20 Rate Blood Pressure 144/89 155/83 O2 Sat by Pulse 98 97 Oximetry Procedures - Orthopedic Splinting/Casting Injury #1 Side: left Upper Extremity Injury Location: long arm Upper Extremity Immobilizer: posterior splint Medical Decision Making - Medical Decision Making Was pt. sent in by a medical professional or institution (, PA, CABLE STRANDER, urgent care, hospital, or senior care...) When possible be specific @ -No Did you speak to anyone other than the patient for history (EMS, parent, family, police, friend...)? What history was obtained from this source @ -Son is present and helps provide history and is also updated Did you review nursing and triage notes (agree or disagree)? Why? @ -I reviewed and agree with nursing and triage notes Were old charts reviewed (outside hosp., previous admission, EMS record, old EKG, old radiological studies, urgent care reports/EKG's, senior care records)? Report findings @ -No old charts were reviewed Differential Diagnosis (chest pain, altered mental status, abdominal pain women, abdominal pain men, vaginal bleeding, weakness, fever, dyspnea, syncope, headache, dizziness, GI bleed, back pain, seizure, CVA, palpatations, mental health, musculoskeletal)? @ -Differential Musculoskeletal Muscular strain, contusion, ligament sprain, fracture, arthritis, septic arthritis, bursitis, cellulitis, muscle spasm, nerve compression, DVT, arterial occlusion, herpes zoster, electrolyte abnormality, tumor.... This is not meant to be in all inclusive list EKG interpreted by me (3pts min.). @ -As above X-rays interpreted by me (1pt min.). @ -X-ray shows fracture through the proximal ulna. CT interpreted by me (1pt min.). @ -None done U/S interpreted by me (1pt. min.). @ -None done What testing was considered but not performed or refused? (CT, X-rays, U/S, labs)? Why? @ -None What meds were considered but not given or refused? Why? @ -None Did you discuss the management of the patient with other professionals (professionals i.e. , PA, CABLE STRANDER, lab, RT, psych nurse, social work faculty member, engraver copperplate, teacher, chief medical officer, case repairer)? Give summary @ -No Was smoking cessation discussed for >3mins.? @ -No Was critical care preformed (if so, how long)? @ -No Were there social determinants of health that impacted care today? How? (Homelessness, low income, unemployed, alcoholism, drug addiction, transportation, low edu. Level, literacy, decrease access to med. care, half-way, rehab)? @ -No Was there de-escalation of care discussed even if they declined (Discuss DNR or withdrawal of care, Hospice)? DNR status @ -No What co-morbidities impacted this encounter? (DM, HTN, Smoking, COPD, CAD, Cancer, CVA, ARF, Chemo, Hep., AIDS, mental health diagnosis, sleep apnea, morbid obesity)? @ -None Was patient admitted / discharged? Hospital course, mention meds given and route, prescriptions, significant lab abnormalities, going to OR and other pertinent info. @ -Patient reevaluated. Patient and family updated on need for follow-up. Splint placed. They're further made aware of concern for full orthopedic evaluation in regards to significant injury with minimal event. They're made aware of potential of questionable underlying tumor although I do not visualize is an x-ray. They're advised to discuss this with orthopedics. Undiagnosed new problem with uncertain prognosis? @ -No Drug Therapy requiring intensive monitoring for toxicity (Heparin, Nitro, Insulin, Cardizem)? @ -No Were any procedures done? @ -Left arm splint Diagnosis/symptom? @ -Proximal ulna fracture Acute, or Chronic, or Acute on Chronic? @ -Acute Uncomplicated (without systemic symptoms) or Complicated (systemic symptoms)? @ -default Side effects of treatment? @ -No Exacerbation, Progression, or Severe Exacerbation? @ -No Poses a threat to life or bodily function? How? (Chest pain, USA, MS, pneumonia, PE, COPD, DKA, ARF, appy, cholecystitis, CVA, Diverticulitis, Homicidal, Suicidal, threat to staff... and all critical care pts) @ -No Disposition Clinical Impression: Fracture, ulna, proximal Disposition: HOME SELF-CARE Condition: Stable Instructions (If sedation given, give patient instructions): Arm Fracture in Adults (ED) Additional Instructions: Use her Dorset as needed. Please do follow-up with orthopedics This week. Please have discussed with orthopedics regarding fracture despite limited mechanism of injury. Return for increased pain, swelling, hand pounds, worsening symptoms or any other concerns. Sling as needed. Is patient prescribed a controlled substance at d/c from ED?: No Referrals: Edin Pineda MD [Primary Care Provider] - 1-2 days Simone Sahni MD [STAFF PHYSICIAN] - 1-2 days Time of Disposition: 15:56
--- NOTE | 2023-03-15 15:52 | XR ---
EXAMINATION TYPE: XR elbow complete LT, XR forearm LT, XR humerus LT DATE OF EXAM: 03/15/2023 3:35 PM INDICATION: Patient age:Female; 82 years old; Reason for study: pain; PHH. COMPARISON: None TECHNIQUE: The left elbow was examined in AP, lateral, and oblique projections. Frontal and lateral views of the forearm and humerus. FINDINGS: Acute fracture through the proximal ulna with mild gapping at fracture site.. There is inocencio navjot demonstrates post arthroplasty changes which appears intact. The humerus and radius appear intact . Psoas portions of the chest are intact. IMPRESSION: 1. Acute fracture through the proximal ulna with minimal gapping of the fracture site. No additional fractures visualized. 2. Post arthroplasty changes of the left humerus without evidence of fracture. Hardware is intact.
[2023-03-15 16:12] VITALS: BP 135/77; PULSE 102; RESP 18; TEMP 98.1
== END 2023-03-15 16:25 | disposition home or self-care (01) ==
LOC: EC 14:46
DX: S52.002A Unspecified fracture of upper end of left ulna, initial encounter for closed fracture (principal); E11.36 Type 2 diabetes mellitus with diabetic cataract; E11.40 Type 2 diabetes mellitus with diabetic neuropathy, unspecified; I10 Essential (primary) hypertension; E78.5 Hyperlipidemia, unspecified; I48.91 Unspecified atrial fibrillation; J45.909 Unspecified asthma, uncomplicated; E03.9 Hypothyroidism, unspecified; M79.7 Fibromyalgia; M19.90 Unspecified osteoarthritis, unspecified site; Z79.890 Hormone replacement therapy; Z79.84 Long term (current) use of oral hypoglycemic drugs; Z79.899 Other long term (current) drug therapy; Z88.0 Allergy status to penicillin; Z88.1 Allergy status to other antibiotic agents; Z88.2 Allergy status to sulfonamides; Z88.8 Allergy status to other drugs, medicaments and biological substances; Z91.030 Bee allergy status; Z91.013 Allergy to seafood; Z91.09 Other allergy status, other than to drugs and biological substances; Z91.041 Radiographic dye allergy status; Z91.010 Allergy to peanuts; Z91.018 Allergy to other foods; Z90.49 Acquired absence of other specified parts of digestive tract; Z87.891 Personal history of nicotine dependence; X50.1XXA Overexertion from prolonged static or awkward postures, initial encounter
CPT/HCPCS: 73060; 73080; 73090; 29105; 99283; 96372; J1170

== ENCOUNTER 2023-03-20 08:39 | Day surgery (SDC) | payer MEDICARE ==
[2023-03-20 09:35] LABS: Mean Platelet Volume 8.1; Platelet Count 240 k/uL (150-450)
[2023-03-20 09:48] LABS: African American GFR (CKD) 53 (>60 ml/min/1.73 sqM); Non-African American GFR(CKD) 46 (>60 ml/min/1.73 sqM)
[2023-03-20 09:51] LABS: INR 1.3 (<1.2); Prothrombin Time 13.3 sec (9.0-12.0)
[2023-03-20 10:00] VITALS: RESP 18; TEMP 97.6
[2023-03-20] MEDS: ALBUMIN HUMAN 25% 50 ML in EMPTY BAG 1 BAG IVPB SCH ×4 (10:01→11:11)
[2023-03-20 11:54] VITALS: BP 156/80; PULSE 77
--- NOTE | 2023-03-20 12:01 | US ---
Ultrasound-guided paracentesis. DATE OF EXAM: 03/20/2023 CLINICAL HISTORY: Ascites The procedure was discussed with the patient. The risks, complications, benefits, and alternatives we re discussed and any questions were answered. Informed consent was obtained. The patient was placed s upine on the ultrasound table and prepped and draped in the usual sterile fashion. All elements of maximal barrier technique were utilized. Under ultrasound guidance, access into the right lower quadrant was obtained, via the paracentesis catheter system and direct ultrasound guidanc e. Approximately 6.1 liters of straw-colored fluid was removed. The patient was stable throughout the pr ocedure and remained stable upon discharge from Department of Radiology. IMPRESSION: Successful paracentesis under ultrasound guidance.
== END 2023-03-20 11:40 | disposition home or self-care (01) ==
LOC: RADPROMAIN 08:39
PROVIDERS: ATTEND Internal Medicine Gastroenterology
DX: R18.8 Other ascites (principal)
CPT/HCPCS: 82565; 85049; 85610; 36415; 49083; P9047; J1642

== ENCOUNTER → 2023-03-24 | Outpatient (CLI) | payer MEDICARE | END | disposition home or self-care (01) | LOC: LABWHC1 15:12 | PROVIDERS: ATTEND Family Medicine | DX: E11.9 Type 2 diabetes mellitus without complications (principal) | CPT/HCPCS: 36415; 83036 ==

== ENCOUNTER 2023-03-27 08:46 | Day surgery (SDC) | payer MEDICARE ==
[2023-03-27 09:36] VITALS: TEMP 97.7
[2023-03-27 09:46] LABS: Mean Platelet Volume 8.5; Platelet Count 226 k/uL (150-450)
[2023-03-27 09:47] LABS: INR 1.4 (<1.2); Prothrombin Time 14.2 sec (9.0-12.0)
[2023-03-27 09:48] LABS: African American GFR (CKD) 55 (>60 ml/min/1.73 sqM); Non-African American GFR(CKD) 48 (>60 ml/min/1.73 sqM)
[2023-03-27] MEDS: ALBUMIN HUMAN 25% 50 ML in EMPTY BAG 1 BAG IVPB SCH ×4 (10:17→11:08)
[2023-03-27 11:03] VITALS: RESP 16
[2023-03-27 11:10] VITALS: BP 131/65; PULSE 68
--- NOTE | 2023-03-27 11:49 | US ---
Ultrasound-guided paracentesis. DATE OF EXAM: 03/27/2023 CLINICAL HISTORY: Ascites The procedure was discussed with the patient. The risks, complications, benefits, and alternatives we re discussed and any questions were answered. Informed consent was obtained. The patient was placed s upine on the ultrasound table and prepped and draped in the usual sterile fashion. All elements of maximal barrier technique were utilized. Under ultrasound guidance, access into the right lower quadrant was obtained, via the paracentesis catheter system and direct ultrasound guidanc e. Approximately 6.2 liters of straw-colored fluid was removed. The patient was stable throughout the pr ocedure and remained stable upon discharge from Department of Radiology. IMPRESSION: Successful paracentesis under ultrasound guidance.
== END 2023-03-27 11:25 | disposition home or self-care (01) ==
LOC: RADPROMAIN 08:46
PROVIDERS: ATTEND Internal Medicine Gastroenterology
DX: R18.8 Other ascites (principal)
CPT/HCPCS: 82565; 85049; 85610; 49083; P9047; J1642

== ENCOUNTER 2023-04-03 08:48 | Day surgery (SDC) | payer MEDICARE ==
[2023-04-03 09:30] VITALS: TEMP 97.6
[2023-04-03 09:30] LABS: Mean Platelet Volume 8.3; Platelet Count 252 k/uL (150-450)
[2023-04-03 09:41] LABS: African American GFR (CKD) 58 (>60 ml/min/1.73 sqM); Non-African American GFR(CKD) 50 (>60 ml/min/1.73 sqM)
[2023-04-03 09:47] LABS: INR 1.4 (<1.2)
[2023-04-03 09:48] LABS: Prothrombin Time 14.6 sec (9.0-12.0)
[2023-04-03] MEDS: ALBUMIN HUMAN 25% 50 ML in EMPTY BAG 1 BAG IVPB SCH ×3 (10:00→10:48)
[2023-04-03 11:32] VITALS: BP 122/64; PULSE 78; RESP 18
--- NOTE | 2023-04-03 12:20 | US ---
EXAMINATION TYPE: US paracentesis abd w/image DATE OF EXAM: 04/03/2023 CLINICAL HISTORY: 82-year-old female weekly paracentesis, and recurrent ascites and liver disease. The procedure was discussed with the patient. The risks, complications, benefits, and alternatives we re discussed and any questions were answered. Informed consent was obtained. The patient was placed s upine on the ultrasound table and prepped and draped in the usual sterile fashion. All elements of maximal barrier technique were utilized. Ultrasound guidance was utilized to determine the precise skin entry site along the right lower quadr ant. Utilizing trocar technique, a 6 Pakistani safety centesis catheter was placed into the right lower quadrant ascites without difficulty and 6.6 L of clear, straw-colored fluid was obtained. Catheter was removed, hemostasis obtained, and dressing placed. The patient was stable throughout the procedure and remained stable upon discharge from Department of Radiology. IMPRESSION: Successful therapeutic paracentesis under ultrasound guidance. 6.6 L removed.
== END 2023-04-03 11:20 | disposition home or self-care (01) ==
LOC: RADPROMAIN 08:48
PROVIDERS: ATTEND Internal Medicine Gastroenterology
DX: R18.8 Other ascites (principal)
CPT/HCPCS: 82565; 85049; 85610; 49083; P9047; J1642

== ENCOUNTER 2023-04-03 13:05 | Inpatient (IN) | payer MEDICARE ==
--- NOTE | 2023-04-03 13:12 | ED ---
General Adult HPI - General Stated complaint: Fall Time Seen by Provider: 04/03/23 13:05 Source: patient, RN notes reviewed, old records reviewed - History of Present Illness Initial comments: This is an 82-year-old female presents emergency Department after having fallen. Patient states she had a paracentesis done today because she has liver failure. Patient states she got home and she was feeling lightheaded and thought she might pass out and then she fell and landed on her butt and then went back and hit the back of her head. Patient complains of a headache neck pain and some thoracic spine pain and some lower lumbar pain. Patient denies any injury to extremities per patient denies any chest pain shortness of breath or difficulty breathing. Patient has any abdominal pain. Patient denies any sites of bleeding. EMS gave morphine to the patient she stated it did help with the pain - Related Data Home Medications Medication Instructions Recorded Confirmed Levothyroxine Sodium [Synthroid] 25 mcg PO DAILY@0700 03/23/14 04/03/23 Montelukast [Singulair] 10 mg PO HS 03/23/14 04/03/23 oxyBUTYnin chloride [Ditropan XL] 10 mg PO HS 03/23/14 04/03/23 EPINEPHrine (Auto Inject) [Epipen] 0.3 mg IM ONCE PRN 04/13/20 04/03/23 Cholecalciferol [Vitamin D3 (25 1.5 mg PO WEEKLY 08/31/20 04/03/23 Mcg = 1000 Iu)] Midodrine [ProAmatine] 2.5 mg PO AC-TID 09/10/20 04/03/23 Escitalopram [Lexapro] 5 mg PO HS 10/12/20 04/03/23 sitaGLIPtin [Januvia] 50 mg PO DAILY 12/21/20 04/03/23 Furosemide [Lasix] 40 mg PO DAILY 01/22/21 04/03/23 Spironolactone [Aldactone] 25 mg PO DAILY 01/22/21 04/03/23 Thiamine [Vitamin B-1] 100 mg PO HS 01/22/21 04/03/23 Ferrous Sulfate [Iron (65 MG 325 mg PO DAILY 03/22/21 04/03/23 Elemental)] hydrOXYzine HCL [Atarax] 20 mg PO BID 03/22/21 04/03/23 Furosemide [Lasix] 20 mg PO HS 01/31/22 04/03/23 allopurinoL [Zyloprim] 100 mg PO DAILY 01/31/22 04/03/23 HYDROcodone/APAP 10-325MG [[place] 1 tab PO Q4HR PRN 01/09/23 04/03/23 10-325] Previous Rx's Medication Instructions Recorded Folic Acid 1 mg PO DAILY@1200 30 Days #30 tab 09/03/20 Cyclobenzaprine [Flexeril] 10 mg PO BID PRN 10 Days #20 tab 03/15/22 Allergies Allergy/AdvReac Type Severity Reaction Status Date / Time venom-wasp [Wasp Venom] Allergy Severe Swelling Verified 04/03/23 10:29 adhesive Allergy Unknown Rash/Hives Verified 04/03/23 10:29 amoxicillin [Amoxicillin] Allergy Unknown Rash/Hives, Verified 04/03/23 10:29 itching fenofibrate nanocrystallized Allergy Unknown Rash/Hives,joint Verified 04/03/23 10:29 [From Tricor] pain fenofibrate,micronized Allergy Unknown Rash/Hives, Verified 04/03/23 10:29 [From Tricor] joint pain hydrochlorothiazide Allergy Unknown Rash/Hives Verified 04/03/23 10:29 Neuromuscular Blockers, Allergy Unknown Rash/Hives Verified 04/03/23 10:29 Steroidal [Steroidal Neuromuscular Blockers] Penicillins Allergy Unknown Rash/Hives, Verified 04/03/23 10:29 red skin shellfish derived Allergy Unknown SKIN RED Verified 04/03/23 10:29 AND WARM simvastatin [From Zocor] Allergy Unknown Rash/Hives, Verified 04/03/23 10:29 joint pain Vvzotbr-MTU-SbR Reductase Allergy Unknown Rash/Hives, Verified 04/03/23 10:29 Inhibitor joint pain [Jtjpczr-Fan-Uqi Reductase Inhibitor] venom-honey bee Allergy Unknown Swelling Verified 04/03/23 10:29 [bee venom (honey bee)] cat dander Allergy Rash/Hives Verified 04/03/23 10:29 ciprofloxacin HCl Allergy Unknown Verified 04/03/23 10:29 [From Cipro] sulfamethoxazole Allergy Rash/Hives Verified 04/03/23 10:29 talc Allergy Rash/Hives Verified 04/03/23 10:29 walnut Allergy Rash/Hives Verified 04/03/23 10:29 clarithromycin AdvReac warm and Verified 04/03/23 10:29 flushed lactose AdvReac Abdominal Verified 04/03/23 10:29 Pain minocycline AdvReac warm and Verified 04/03/23 10:29 flushed peanut [Peanut Butter] AdvReac Nausea Verified 04/03/23 10:29 prednisone AdvReac Nausea Verified 04/03/23 10:29 soy AdvReac Nausea & Verified 04/03/23 10:29 Vomiting Review of Systems ROS Statement: Those systems with pertinent positive or pertinent negative responses have been documented in the HPI. ROS Other: All systems not noted in ROS Statement are negative. Past Medical History Past Medical History: Atrial Fibrillation, Asthma, Cancer, Diabetes Mellitus, Fibromyalgia, GERD/Reflux, Hyperlipidemia, Hypertension, Liver Disease, Osteoarthritis (OA), Pulmonary Embolus (PE), Thyroid Disorder Additional Past Medical History / Comment(s): Pt recently admitted to [facility] on 08/14/20 with decompensated liver cirrhosis 2ndary to [place] with ascities/acute diarrhea and anemia with transfusion. Other hx: Nonalcoholic fatty liver, liver cirrhosis, ascities with multiple paracentesis and has albumin infusions, esophageal varicies with banding, NIDDM type II, neuropathy bilateral legs/feet, spinal stenosis/low back pain with R side radiculopathy and lately has had pain down L leg, recent bilateral lower leg edema, PE after leg fracture, overactive bladder, hypothyroid, sinus problems, vertigo, bilateral macular degeneration,skin cancer, cellulits to left lower extemity on antibiotics 11/13/20 History of Any Multi-Drug Resistant Organisms: None Reported Past Surgical History: Adenoidectomy, Appendectomy, Back Surgery, Breast Surgery, Hysterectomy, Joint Replacement, Orthopedic Surgery, Tonsillectomy Additional Past Surgical History / Comment(s): Multiple large volume paracentesis procedures, lower back and cervical fusions, bilateral total knees, bilateral total shoulders, bilateral carpal tunnel releases, bilateral hand trigger finger releases, R foot bone spur removed, R leg fracture/hardware removed, R breast fatty tumor removed, EGD with esophageal varicies banded, colonoscopy, skin cancer removed, bilateral cataracts removed., right chest mediport Past Anesthesia/Blood Transfusion Reactions: Motion Sickness, Postoperative Nausea & Vomiting (PONV) Additional Past Anesthesia/Blood Transfusion Reaction / Comment(s): previous blood transfusions at [facility] Past Psychological History: No Psychological Hx Reported Additional Psychological History / Comment(s): Pt resides with her son. Son organizes her medications. She has a cane, walker, scooter or a wheelchair. She no longer drives, her son takes her to appts and cooks dinner because pt has difficulty standing very long d/t back pain. Smoking Status: Former smoker Past Alcohol Use History: None Reported Additional Past Alcohol Use History / Comment(s): Pt started smoking in 1986 and quit in 1991. Past Drug Use History: None Reported - Past Family History Mother History Unknown: Yes Family Medical History: No Reported History Additional Family Medical History / Comment(s): Mother was healthy and lived to be 87yrs old. Father History Unknown: Yes Additional Family Medical History / Comment(s): Father in a MVA Daughter(s) Family Medical History: Cancer General Exam - General Exam Comments Initial Comments: GENERAL: Patient is well-developed and well-nourished. Patient is nontoxic and well-hyd rated and is in mild distress. ENT: Neck is soft and supple. No significant lymphadenopathy is noted. Oropharynx is clear. Moist mucous membranes. Neck has full range of motion without eliciting any pain. EYES: The sclera were anicteric and conjunctiva were pink and moist. Extraocular movements were intact and pupils were equal round and reactive to light. Eyelids were unremarkable. PULMONARY: Unlabored respirations. Good breath sounds bilaterally. No audible rales rhonchi or wheezing was noted. CARDIOVASCULAR: There is a regular rate and rhythm without any murmurs gallops or rubs. ABDOMEN: Soft and nontender with normal bowel sounds. SKIN: Skin is clear with no lesions or rashes and otherwise unremarkable. NEUROLOGIC: Patient is alert and oriented x3. Cranial nerves II through XII are grossly intact. Motor and sensory are also intact. Normal speech, volume and content. Symmetrical smile. MUSCULOSKELETAL: Normal extremities with adequate strength and full range of motion. Patient has tenderness at about T3 T 11 and lumbar spine L3 and L5-S1 area LYMPHATICS: No significant lymphadenopathy is noted PSYCHIATRIC: Normal psychiatric evaluation. Course Vital Signs 04/03/23 04/03/23 13:07 17:10 Temperature 97.8 F Pulse Rate 85 101 H Respiratory 18 18 Rate Blood Pressure 118/63 136/76 O2 Sat by Pulse 99 97 Oximetry Medical Decision Making - Medical Decision Making EKG was interpreted by myself EKG shows atrial fibrillation at 90 bpm QRS is 92 QT interval 349 QTC is 397. No ST segment elevation or depression Was pt. sent in by a medical professional or institution ([facility] Copeland, SEALER OPERATOR, urgent care, hospital, or [place] health care facility...) When possible be specific @ -No Did you speak to anyone other than the patient for history (EMS, parent, family, police, friend...)? What history was obtained from this source @ -EMS and family gave quite a bit of history Did you review nursing and triage notes (agree or disagree)? Why? @ -I reviewed and agree with nursing and triage notes Were old charts reviewed (outside hosp., previous admission, EMS record, old EKG, old radiological studies, urgent care reports/EKG's, [place] health care facility records)? Report findings @ -I reviewed prior charts prior laboratory prior radiological studies on this patient Differential Diagnosis (chest pain, altered mental status, abdominal pain women, abdominal pain men, vaginal bleeding, weakness, fever, dyspnea, syncope, headache, dizziness, GI bleed, back pain, seizure, CVA, palpatations, mental health, musculoskeletal)? @ -Differential Musculoskeletal Muscular strain, contusion, ligament sprain, fracture, arthritis, septic arthritis, bursitis, cellulitis, muscle spasm, nerve compression, DVT, arterial occlusion, herpes zoster, electrolyte abnormality, tumor.... This is not meant to be in all inclusive list EKG interpreted by me (3pts min.). @ -As above X-rays interpreted by me (1pt min.). @ -X-ray of the T-spine shows a slight compression fracture it is indeterminant age. LS spine x-ray shows no acute abnormality CT interpreted by me (1pt min.). @ -CT of the brain and C-spine showed no acute abnormality U/S interpreted by me (1pt. min.). @ -None done What testing was considered but not performed or refused? (CT, X-rays, U/S, labs)? Why? @ -None What meds were considered but not given or refused? Why? @ -None Did you discuss the management of the patient with other professionals (professionals i.e. [facility] Copeland, SEALER OPERATOR, lab, RT, psych nurse, foster care social worker, packing machine pilot can router, teacher, corporate ethics officer, pillowcase folder)? Give summary @ -I spoke with Dr. Baumann he agreed to admit the patient Was smoking cessation discussed for >3mins.? @ -No Was critical care preformed (if so, how long)? @ -No Were there social determinants of health that impacted care today? How? (Homelessness, low income, unemployed, alcoholism, drug addiction, transportation, low edu. Level, literacy, decrease access to med. care, senior living, rehab)? @ -No Was there de-escalation of care discussed even if they declined (Discuss DNR or withdrawal of care, Hospice)? DNR status @ -No What co-morbidities impacted this encounter? (DM, HTN, Smoking, COPD, CAD, Cancer, CVA, ARF, Chemo, Hep., AIDS, mental health diagnosis, sleep apnea, morbid obesity)? @ -None Was patient admitted / discharged? Hospital course, mention meds given and route, prescriptions, significant lab abnormalities, going to OR and other pertinent info. @ -Patient had a low sodium and a possible thoracic spine compression fracture and she was unable to get up and ambulate at her baseline and family stated they could not take care of her so I spoke with Dr. Baumann and he agreed to admit the patient admitted the patient I wrote admitting orders. Undiagnosed new problem with uncertain prognosis? @ -No Drug Therapy requiring intensive monitoring for toxicity (Heparin, Nitro, Insu sabina, Cardizem)? @ -No Were any procedures done? @ -No Diagnosis/symptom? @ -Hyponatremia Acute, or Chronic, or Acute on Chronic? @ -Acute Uncomplicated (without systemic symptoms) or Complicated (systemic symptoms)? @ -Complicated Side effects of treatment? @ -No Exacerbation, Progression, or Severe Exacerbation? @ -No Poses a threat to life or bodily function? How? (Chest pain, [place], CA, pneumonia, PE, COPD, DKA, ARF, appy, cholecystitis, CVA, Diverticulitis, Homicidal, Suicidal, threat to staff... and all critical care pts) @ -No Diagnosis/symptom? @ -Thoracic spine compression fraction Acute, or Chronic, or Acute on Chronic? @ -Acute Uncomplicated (without systemic symptoms) or Complicated (systemic symptoms)? @ -Uncomplicated Side effects of treatment? @ -none Exacerbation, Progression, or Severe Exacerbation] @ -no Poses a threat to life or bodily function? @ -no Diagnosis/symptom? @ -Near syncope Acute, or Chronic, or Acute on Chronic? @ -Acute Uncomplicated (without systemic symptoms) or Complicated (systemic symptoms)? @ -Complicated Side effects of treatment? @ -none Exacerbation, Progression, or Severe Exacerbation] @ -no Poses a threat to life or bodily function? @ -no - Lab Data Result diagrams: 04/03/23 13:20 04/03/23 13:20 Lab Results 04/03/23 04/03/23 Range/Units 13:20 13:20 WBC 5.7 (3.8-10.6) k/uL RBC 3.56 L (3.80-5.40) m/uL Hgb 10.3 L (11.4-16.0) gm/dL Hct 30.9 L (34.0-46.0) % MCV 86.7 (80.0-100.0) fL MCH 28.9 (25.0-35.0) pg MCHC 33.3 (31.0-37.0) g/dL RDW 16.1 H (11.5-15.5) % Plt Count 213 (150-450) k/uL MPV 8.1 Neutrophils % 84 % Lymphocytes % 8 % Monocytes % 5 % Eosinophils % 1 % Basophils % 0 % Neutrophils # 4.8 (1.3-7.7) k/uL Lymphocytes # 0.5 L (1.0-4.8) k/uL Monocytes # 0.3 (0-1.0) k/uL Eosinophils # 0.1 (0-0.7) k/uL Basophils # 0.0 (0-0.2) k/uL Anisocytosis Slight Sodium 127 L (137-145) mmol/L Potassium 4.2 (3.5-5.1) mmol/L Chloride 98 (98-107) mmol/L Carbon Dioxide 19 L (22-30) mmol/L Anion Gap 10 mmol/L BUN 47 H (7-17) mg/dL Creatinine 1.00 (0.52-1.04) mg/dL Est GFR (CKD-EPI)AfAm 62 (>60 ml/min/1.73 sqM) Est GFR (CKD-EPI)NonAf 53 (>60 ml/min/1.73 sqM) Glucose 102 H (74-99) mg/dL Calcium 8.4 (8.4-10.2) mg/dL Magnesium 2.2 (1.6-2.3) mg/dL Total Bilirubin 0.7 (0.2-1.3) mg/dL AST 58 H (14-36) U/L ALT 31 (4-34) U/L Alkaline Phosphatase 154 H (38-126) U/L Total Protein 5.2 L (6.3-8.2) g/dL Albumin 3.1 L (3.5-5.0) g/dL Disposition Clinical Impression: Near syncope, Hyponatremia, Compression fx, thoracic spine, Generalized weaknes s Disposition: ADMITTED IP TO THIS HOSP Referrals: Edin Pineda MD [Primary Care Provider] - 1-2 days Time of Disposition: 17:18
[2023-04-03 13:31] LABS: Anisocytosis Slight; Basophils % (A) 0 %; Eosinophils # (A) 0.1 k/uL (0-0.7); Eosinophils % (A) 1 %; HCT 30.9 % (34.0-46.0); HGB 10.3 gm/dL (11.4-16.0); Lymphocytes # (A) 0.5 k/uL (1.0-4.8); Lymphocytes % (A) 8 %; MCH 28.9 pg (25.0-35.0); MCHC 33.3 g/dL (31.0-37.0); MCV 86.7 fL (80.0-100.0); Mean Platelet Volume 8.1; Monocytes # (A) 0.3 k/uL (0-1.0); Monocytes % (A) 5 %; Neutrophils # (A) 4.8 k/uL (1.3-7.7); Neutrophils % (A) 84 %; Platelet Count 213 k/uL (150-450); RBC 3.56 m/uL (3.80-5.40); RDW 16.1 % (11.5-15.5); WBC 5.7 k/uL (3.8-10.6)
[2023-04-03 13:53] LABS: ALT 31 U/L (4-34); AST 58 U/L (14-36); African American GFR (CKD) 62 (>60 ml/min/1.73 sqM); Albumin 3.1 g/dL (3.5-5.0); Alkaline Phosphatase 154 U/L (38-126); Anion Gap 10 mmol/L; Blood Urea Nitrogen 47 mg/dL (7-17); Calcium 8.4 mg/dL (8.4-10.2); Carbon Dioxide 19 mmol/L (22-30); Chloride 98 mmol/L (98-107); Glucose 102 mg/dL (74-99); Magnesium 2.2 mg/dL (1.6-2.3); Non-African American GFR(CKD) 53 (>60 ml/min/1.73 sqM); Potassium 4.2 mmol/L (3.5-5.1); Sodium 127 mmol/L (137-145); Total Bilirubin 0.7 mg/dL (0.2-1.3); Total Protein 5.2 g/dL (6.3-8.2)
[2023-04-03] MEDS ORDERED: HYDROmorphone 0.5 MG/0.5 ML SYRINGE IVP STA ×2 (14:45→16:58)
--- NOTE | 2023-04-03 15:03 | CT ---
EXAMINATION TYPE: CT brain angelica christensen con DATE OF EXAM: 04/03/2023 COMPARISON: 09/02/2017 HISTORY: 82-year-old female Fall, hit head, c/o neck and back pain. CT DLP: 1397.6 mGycm Automated exposure control for dose reduction was used. Technique: Examination of the head was done in axial plane without intravenous contrast. Coronal and sagittal reconstructions performed. CT of the cervical spine was obtained in axial plane without intravenous injection of contrast mater ial. Coronal and sagittal reformatted images were obtained from the axial views for evaluation of f ractures, spinal alignment and canal. FINDINGS: Head: There is no evidence of acute intracranial hemorrhage, acute ischemic changes, mass, mass-effect, or extra-axial fluid collection. There is no effacement of cerebral sulci or basal subarachnoid cister ns. There is mild ventriculomegaly, increased from 2018, Mcgee ratio now calculated at 0.35. Mild cer ebral cortical volume loss. Benign basal ganglia calcifications on the right. There is no midline juanjo ft. Reyna-white matter distinction is preserved. Paranasal sinuses and mastoid air cells well pneumatized. Orbits and globes are intact. Rightward yoli al septal deviation. Cervical spine: No craniocervical junction anteriorly, predental space widening, or prevertebral soft tissue swelling . Hypertrophic facet and uncovertebral joint arthropathy is present throughout. Redemonstrated post surgical change of C5-C7 ACDF. There appears to be degenerative interbody ankylos is down to the T1, possibly the T2 level. Fixed grade 1 anterolisthesis at both C4-C5, C7-T1, T1-T2, and T2-T3 are similar. Disc osteophyte complex and ligamentum flavum thickening continues to variable mild narrowing of the spinal canal. No acute fracture of the cervical spine. Chronic congenital defect posterior C1 arch. Variable mild to moderate neuroforaminal narrowing throughout. Advanced degenerative change sternoclavicular joints. Sagittal and coronal reformatted images confirm above findings. COMBINED IMPRESSION: 1. Mild ventriculomegaly/hydrocephalus, increased from 2018 may be due to ex vacuo enlargement from c entral cerebral atrophy. Correlate to exclude a component of NPH. 2. Otherwise, no acute intracranial abnormality seen. 3. No acute fracture seen of the cervical spine. Moderate to advanced multilevel spondylotic changes with previous C5-C7 ACDF. There appears to be degenerative interbody ankylosis possibly down through the T2 level. Degenerative changes have progressed from 2018.
--- NOTE | 2023-04-03 16:36 | XR ---
EXAMINATION TYPE: XR thoracic spine 3 views complete, XR lumbosacral spine 5 views DATE OF EXAM: 04/03/2023 Comparison: Chest radiograph 03/15/[address] 03/15/2022 Clinical History: 82-year-old female pain after Trauma Findings: Thoracic spine: ACDF hardware. Right sided IJ CVC with tip at the mid SVC. There is marked osteopenia. There is dish throughout the mid to lower thoracic spine. There is age indeterminate minimal anterior wedge deformi ty in the upper third thoracic spine. No merry malalignment. Lumbar spine: DISH down through the T12 level. Moderate to advanced disc/endplate degenerative change upper lumbar spine T12-L1 and L1-L2. There is posterior lumbar fusion change from L2 through L4 levels along with left lateral interbody fusion L3-L4. Grade 1 anterolisthesis L4-L5. The degree of osteopenia markedly limits evaluation. For example, unable to adequately visualize the anterior cortex of the L3 vertebr al body. Impression: Thoracic spine: 1. 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 Age indeterminate minimal anterior wedge deformit y in the upper third thoracic spine. Correlate for any focal pain at this level. 2. No mrery malalignment. Lumbar spine: 3. DISH down through the T12 level. 4. The extensive osteopenia limits detailed assessment of the bony anatomy. No obvious vertebral comp ression deformity. 5. Previous posterior lumbar fusion L2-L4 levels.
[2023-04-03] MEDS ORDERED: KETOROLAC 15 MG/ML 1 ML VIAL IVP STA (16:59)
[2023-04-03] MEDS ORDERED: SODIUM CHLORIDE 0.9% 1,000 ML IV ONE (18:34)
[2023-04-03] MEDS: HYDROcodone/APAP 10-325MG 1 EACH TAB PO PRN (21:46)
[2023-04-04] MEDS: HYDROcodone/APAP 10-325MG 1 EACH TAB PO PRN ×5 (02:20→20:49)
--- NOTE | 2023-04-04 02:52 | P.HPIM ---
History of Present Illness H&P Date: 04/03/23 Chief Complaint: fall 82-year-old female with diabetes mellitus, ALFONSO requiring abdominal paracentesis weekly She has received her abdominal paracentesis today was 6.6 L were removed upon going back home she suddenly felt dizzy and fell backwards hit her head and back she was complaining of a lot of pain and EMS was notified and brought her to the hospital for evaluation. From initial evaluation in the ED no acute fractures identified no intracranial acute pathology identified. Patient denies any headache changes in her vision or hearing denies any new focal neuro deficits denies any chest pain or trouble breathing denies any abdominal pain nausea vomiting changes in bowel or urinary habits Patient denies tobacco smoking and illicit drugs or alcohol Patient reports that she felt lightheaded suddenly while walking using her walker and fell backwards denies any associated palpitations or seizure-like activity denies loss of consciousness. Patient is not on blood thinners at this point she was taken off blood thinners years ago due to GI bleeding Patient has a recent fracture of the left elbow currently her left upper extremity is in cast for the past 4 weeks she claims that she accidentally hit her elbow against a hard surface resulted in the fracture review of systems Pertinent positives as noted in HPI. All other systems were reviewed and are ne gative on exam Constitutional: No acute distress, conversant, pleasant Eyes: Anicteric sclerae, moist conjunctiva, Pupils equal round reactive to light ENMT: NC/AT Oropharynx clear, no erythema, or exudates Lungs: Clear to auscultation Clear to percussion Normal respiratory effort, no accessory muscle use Cardiovascular: Heart regular in rate and rhythm, No murmurs, gallops, or rubs No peripheral edema Abdominal: Soft, distended Nontender, no guarding, rebound or rigidity Abdomen moving with respiration Normoactive bowel sounds Palpable hepatomegaly extending medially over the epigastric region and at least 4 fingers below subcostal margin, with sharp edges and smooth surface No abdominal wall hernia noted Skin: Diffuse ecchymosis over her bilateral upper extremities and belly Extremities: No digital cyanosis No clubbing Pedal pulses intact and symmetrical Radial pulses intact and symmetrical No calf tenderness Psychiatric: Alert and oriented to person, place and time Appropriate affect fair judgement Neuro Muscles Strength 4/5 in all 4 extremities with limited exam over the left upper extremity due to recent fracture of the left elbow Sensation to light touch grossly present throughout Cranial nerves II-XII grossly intact Past Medical History Past Medical History: Atrial Fibrillation, Asthma, Cancer, Diabetes Mellitus, Fibromyalgia, GERD/Reflux, Hyperlipidemia, Hypertension, Liver Disease, Osteoarthritis (OA), Pulmonary Embolus (PE), Thyroid Disorder Additional Past Medical History / Comment(s): Nonalcoholic fatty liver, liver cirrhosis, ascities with multiple paracentesis and has albumin infusions, esop hageal varicies with banding, NIDDM type II, neuropathy bilateral legs/feet, spinal stenosis/low back pain with R side radiculopathy and lately has had pain down L leg, recent bilateral lower leg edema, PE after leg fracture, overactive bladder, hypothyroid, sinus problems, vertigo, bilateral macular degeneration,skin cancer, History of Any Multi-Drug Resistant Organisms: None Reported Past Surgical History: Adenoidectomy, Appendectomy, Back Surgery, Breast Surgery, Hysterectomy, Joint Replacement, Orthopedic Surgery, Tonsillectomy Additional Past Surgical History / Comment(s): Multiple large volume paracentesis procedures, lower back and cervical fusions, bilateral total knees, bilateral total shoulders, bilateral carpal tunnel releases, bilateral hand trigger finger releases, R foot bone spur removed, R leg fracture/hardware removed, R breast fatty tumor removed, EGD with esophageal varicies banded, colonoscopy, skin cancer removed, bilateral cataracts removed., right chest mediport Past Anesthesia/Blood Transfusion Reactions: Motion Sickness, Postoperative Nausea & Vomiting (PONV) Additional Past Anesthesia/Blood Transfusion Reaction / Comment(s): previous blood transfusions at [facility] Past Psychological History: No Psychological Hx Reported Additional Psychological History / Comment(s): Pt resides with her son. Son organizes her medications. She has a cane, walker, scooter or a wheelchair. She no longer drives, her son takes her to appts and cooks dinner because pt has difficulty standing very long d/t back pain. Smoking Status: Former smoker Past Alcohol Use History: None Reported Additional Past Alcohol Use History / Comment(s): Pt started smoking in 1986 and quit in 1991. Past Drug Use History: None Reported - Past Family History Mother History Unknown: Yes Family Medical History: No Reported History Additional Family Medical History / Comment(s): Mother was healthy and lived to be 87yrs old. Father History Unknown: Yes Additional Family Medical History / Comment(s): Father in a MVA Daughter(s) Family Medical History: Cancer Medications and Allergies Home Medications Medication Instructions Recorded Confirmed Type Levothyroxine Sodium [Synthroid] 25 mcg PO DAILY@59903/23/14 04/03/23 History Montelukast [Singulair] 10 mg PO HS@209903/23/14 04/03/23 History oxyBUTYnin chloride [Ditropan XL] 10 mg PO HS@209903/23/14 04/03/23 History EPINEPHrine (Auto Inject) [Epipen] 0.3 mg IM ONCE PRN 04/13/20 04/03/23 History Folic Acid 1 mg PO DAILY@1200 30 Days #30 tab 09/03/20 04/03/23 Rx Midodrine [ProAmatine] 2.5 mg PO AC-TID 09/10/20 04/03/23 History Escitalopram [Lexapro] 5 mg PO HS@209910/12/20 04/03/23 History sitaGLIPtin [Januvia] 50 mg PO DAILY@59912/21/20 04/03/23 History Furosemide [Lasix] 40 mg PO DAILY@59901/22/21 04/03/23 History Spironolactone [Aldactone] 25 mg PO BID@1200,209901/22/21 04/03/23 History Thiamine [Vitamin B-1] 100 mg PO HS@209901/22/21 04/03/23 History Ferrous Sulfate [Iron (65 MG 325 mg PO HS@209903/22/21 04/03/23 History Elemental)] hydrOXYzine HCL [Atarax] 10 - 20 mg PO HS@2099 PRN 03/22/21 04/03/23 History Furosemide [Lasix] 20 mg PO HS@209901/31/22 04/03/23 History allopurinoL [Zyloprim] 100 mg PO HS 01/31/22 04/03/23 History HYDROcodone/APAP 10-325MG [[place] 1 tab PO QID PRN 01/09/23 04/03/23 History 10-325] Bismuth Subsalicylate 262 - 524 mg PO Q1H PRN MDD 120 mls 04/03/23 04/03/23 History [Pepto-Bismol] Ergocalciferol (Vitamin D2) 1,250 mcg PO SA 04/03/23 04/03/23 History [Drisdol (50,000 Iu)] Fluticasone Nasal [place] [Flonase 1 spray EA NOSTRIL BID PRN 04/03/23 04/03/23 History Nasal [place]] Allergies Allergy/AdvReac Type Severity Reaction Status Date / Time venom-wasp [Wasp Venom] Allergy Severe Swelling Verified 04/03/23 19:13 adhesive Allergy Unknown Rash/Hives Verified 04/03/23 19:13 amoxicillin [Amoxicillin] Allergy Unknown Rash/Hives, Verified 04/03/23 19:13 itching fenofibrate nanocrystallized Allergy Unknown Rash/Hives,joint Verified 04/03/23 19:13 [From Tricor] pain fenofibrate,micronized Allergy Unknown Rash/Hives, Verified 04/03/23 19:13 [From Tricor] joint pain hydrochlorothiazide Allergy Unknown Rash/Hives Verified 04/03/23 19:13 Neuromuscular Blockers, Allergy Unknown Rash/Hives Verified 04/03/23 19:13 Steroidal [Steroidal Neuromuscular Blockers] Penicillins Allergy Unknown Rash/Hives, Verified 04/03/23 19:13 red skin shellfish derived Allergy Unknown SKIN RED Verified 04/03/23 19:13 AND WARM simvastatin [From Zocor] Allergy Unknown Rash/Hives, Verified 04/03/23 19:13 joint pain Tnwupef-ENV-EwL Reductase Allergy Unknown Rash/Hives, Verified 04/03/23 19:13 Inhibitor joint pain [Rgdjrrc-Acc-Zfw Reductase Inhibitor] venom-honey bee Allergy Unknown Swelling Verified 04/03/23 19:13 [bee venom (honey bee)] cat dander Allergy Rash/Hives Verified 04/03/23 19:13 ciprofloxacin HCl Allergy Unknown Verified 04/03/23 19:13 [From Cipro] sulfamethoxazole Allergy Rash/Hives Verified 04/03/23 19:13 talc Allergy Rash/Hives Verified 04/03/23 19:13 walnut Allergy Rash/Hives Verified 04/03/23 19:13 clarithromycin AdvReac warm and Verified 04/03/23 19:13 flushed lactose AdvReac Abdominal Verified 04/03/23 19:13 Pain minocycline AdvReac warm and Verified 04/03/23 19:13 flushed peanut [Peanut Butter] AdvReac Nausea Verified 04/03/23 19:13 prednisone AdvReac Nausea Verified 04/03/23 19:13 soy AdvReac Nausea & Verified 04/03/23 19:13 Vomiting Physical Exam Vitals: Vital Signs Temp Pulse Pulse Resp BP BP Pulse Ox 04/04/23 00:03 97.9 F 79 22 107/60 97 04/03/23 23:21 97.9 F 82 18 119/60 95 04/03/23 21:49 91 16 125/55 95 04/03/23 17:10 101 H 18 136/76 97 04/03/23 13:07 97.8 F 85 18 118/63 99 Intake and Output 04/03/23 04/03/23 04/04/23 14:59 22:59 06:59 Other: Weight 71.668 kg 71.668 kg Results CBC & Chem 7: 04/03/23 13:20 04/03/23 13:20 Labs: Abnormal Lab Results - Last 24 Hours (Table) 04/03/23 04/03/23 Range/Units 13:20 13:20 RBC 3.56 L (3.80-5.40) m/uL Hgb 10.3 L (11.4-16.0) gm/dL Hct 30.9 L (34.0-46.0) % RDW 16.1 H (11.5-15.5) % Lymphocytes # 0.5 L (1.0-4.8) k/uL Sodium 127 L (137-145) mmol/L Carbon Dioxide 19 L (22-30) mmol/L BUN 47 H (7-17) mg/dL Glucose 102 H (74-99) mg/dL AST 58 H (14-36) U/L Alkaline Phosphatase 154 H (38-126) U/L Total Protein 5.2 L (6.3-8.2) g/dL Albumin 3.1 L (3.5-5.0) g/dL Thrombosis Risk Factor Assmnt - Choose All That Apply Each Factor Represents 1 point: Swollen legs (current) Each Risk Factor Represents 3 Points: Age 75 years or older Thrombosis Risk Factor Assessment Total Risk Factor Score: 4 Thrombosis Risk Factor Assessment Level: Moderate Risk Assessment and Plan Assessment: 82-year-old female with complex past medical history receives weekly abdominal paracentesis secondary to ALFONSO coming in after passing falling and hitting her head at home for evaluation. Patient not on blood thinner, I discussed the case with the ED doctor and accepted the admission for observation and monitoring of neurologic status overnight with anticipated length of stay less than 2 midnights Generalized weakness Head injury Imaging of the thoracic and lumbar spine showed no acute fractures CT of the head showed no acute intracranial pathology Continue with neuro checks Fall precautions PT evaluation ALFONSO with ascites requiring weekly paracentesis Status post paracentesis today April 03 were 6.6 L removed Dehydration Hyponatremia Renal function showing sodium 127 BUN 47 creatinine 1 Potassium 4.3 Gentle IV fluid hydration normal saline 75 mL per hour Hold diuretics Diabetes mellitus Insulin sliding scale History of A. fib not on blood thinners History of GI bleeding Full code DVT prophylaxis heparin subcu 3 times a day
[2023-04-04] MEDS ORDERED: DEXTROSE 50% SYRINGE 50 ML IVP PRN ×2 (02:54)
[2023-04-04 05:50] LABS: Glucose,Whole Blood 110 mg/dL (70-110)
[2023-04-04] MEDS: INSULIN ASPART (NovoLOG) 100 UNIT/ML VIAL SQ SCH ×4 (06:31→20:49)
[2023-04-04] MEDS: MIDODRINE 5 MG TAB PO SCH ×3 (06:43→17:36)
[2023-04-04] MEDS: LEVOTHYROXINE 25 MCG TAB PO SCH (06:44)
[2023-04-04 09:14] LABS: ALT 32 U/L (8-44); AST 54 U/L (13-35); Albumin 3.4 d/dL (3.8-4.9); Albumin/Globulin Ratio 2.62 Ratio (1.60-3.17); Alkaline Phosphatase 135 U/L (41-126); BUN/Creat Ratio 35.83 Ratio (12.00-20.00); Calcium 8.3 mg/dL (8.7-10.3); Carbon Dioxide 19.7 mmol/L (21.6-31.8); Chloride 100 mmol/L (96-109); Globulin 1.3 d/dL (1.6-3.3); Glucose 108 mg/dL (70-110); Potassium 4.7 mmol/L (3.5-5.5); Sodium 131 mmol/L (135-145); Total Bilirubin 0.9 mg/dL (0.3-1.2); Total Protein 4.7 d/dL (6.2-8.2)
[2023-04-04] MEDS: HEPARIN SODIUM,PORCINE 5,000 UNIT/ML 1 ML VIAL SQ SCH ×2 (10:44→17:36)
[2023-04-04 11:41] LABS: Glucose,Whole Blood 162 mg/dL (70-110)
--- NOTE | 2023-04-04 16:16 | P.PN ---
Subjective Progress Note Date: 04/04/23 No new complaints, still having some back pain and epigastric pain. Still feeling generally weak. Gen: awake, alert HEENT: normocephalic, atraumatic, good hearing acuity, moist mucous membranes Resp: good air exchange, breathing comfortably with no accessory muscle use CVS: good distal perfusion x 4, GI: soft, NTTP, distended, positive ascites : no SPT, no CVAT, nath catheter not present MSK: Bilateral pitting edema, no clubbing Neuro: non-focal, moving all extremities Psych: cooperative, euthymic mood Assessment/plan: 82-year-old female with complex past medical history receives weekly abdominal paracentesis secondary to ALFONSO coming in after passing falling and hitting her head at home for evaluation. Patient not on blood thinner, I discussed the case with the ED doctor and accepted the admission for observation and monitoring of neurologic status overnight with anticipated length of stay less than 2 midnights Generalized weakness Head injury Imaging of the thoracic and lumbar spine showed no acute fractures CT of the head showed no acute intracranial pathology Continue with neuro checks Fall precautions PT evaluation ALFONSO with ascites requiring weekly paracentesis Status post paracentesis today April 03 were 6.6 L removed Dehydration Hyponatremia Renal function showing sodium 127 BUN 47 creatinine 1 Potassium 4.3 Gentle IV fluid hydration normal saline 75 mL per hour Hold diuretics Diabetes mellitus Insulin sliding scale History of A. fib not on blood thinners History of GI bleeding Full code DVT prophylaxis heparin subcu 3 times a day Objective - Vital Signs Vital signs: Vital Signs Temp 98.2 F 04/04/23 14:00 Pulse 69 04/04/23 14:00 Resp 18 04/04/23 14:00 BP 140/91 04/04/23 14:00 Pulse Ox 96 04/04/23 14:00 FiO2 Intake & Output 04/03/23 04/04/23 04/04/23 18:59 06:59 18:59 Intake Total 340 Output Total 450 Balance -110 Weight 71.668 kg 71.668 kg Intake: Oral 340 Output: Urine 450 Other: Voiding Method Incontinent External Catheter - Labs CBC & Chem 7: 04/03/23 13:20 04/04/23 05:24 Labs: Abnormal Lab Results - Last 24 Hours (Table) 04/04/23 04/04/23 Range/Units 05:24 11:39 Sodium 131 L (135-145) mmol/L Carbon Dioxide 19.7 L (21.6-31.8) mmol/L BUN 43.0 H (9.0-27.0) mg/dL Est GFR (CKD-EPI) 45 L (>=60) BUN/Creatinine Ratio 35.83 H (12.00-20.00) Ratio POC Glucose (mg/dL) 162 H (70-110) mg/dL Calcium 8.3 L (8.7-10.3) mg/dL AST 54 H (13-35) U/L Alkaline Phosphatase 135 H (41-126) U/L Total Protein 4.7 L (6.2-8.2) d/dL Albumin 3.4 L (3.8-4.9) d/dL Globulin 1.3 L (1.6-3.3) d/dL
[2023-04-04 16:19] LABS: Glucose,Whole Blood 147 mg/dL (70-110)
[2023-04-04 19:47] LABS: Glucose,Whole Blood 224 mg/dL (70-110)
[2023-04-04] MEDS: allopurinoL 100 MG TAB PO SCH (20:49)
[2023-04-04] MEDS: MONTELUKAST 10 MG TAB PO SCH (20:49)
[2023-04-04] MEDS: ESCITALOPRAM 5 MG TAB PO SCH (20:49)
[2023-04-05 05:39] LABS: Glucose,Whole Blood 135 mg/dL (70-110)
[2023-04-05] MEDS: INSULIN ASPART (NovoLOG) 100 UNIT/ML VIAL SQ SCH ×4 (05:45→21:56)
[2023-04-05] MEDS: HYDROcodone/APAP 10-325MG 1 EACH TAB PO PRN ×5 (05:59→19:20)
[2023-04-05] MEDS: LEVOTHYROXINE 25 MCG TAB PO SCH (06:00)
[2023-04-05] MEDS: MIDODRINE 5 MG TAB PO SCH ×3 (06:40→17:03)
[2023-04-05 09:39] LABS: BUN/Creat Ratio 40.82 Ratio (12.00-20.00); Blood Urea Nitrogen 44.9 mg/dL (9.0-27.0); Calcium 8.1 mg/dL (8.7-10.3); Carbon Dioxide 18.1 mmol/L (21.6-31.8); Chloride 97 mmol/L (96-109); Glucose 108 mg/dL (70-110); Magnesium 2.2 mg/dL (1.5-2.4); Potassium 4.6 mmol/L (3.5-5.5); Sodium 126 mmol/L (135-145)
[2023-04-05 10:03] LABS: Basophils # (A) 0.04 X 10*3/uL (0.00-0.10); Basophils % (A) 0.4 %; Eosinophils # (A) 0.18 X 10*3/uL (0.04-0.35); Eosinophils % (A) 1.7 %; HCT 31.6 % (37.2-46.3); HGB 10.7 d/dL (12.0-15.0); Lymphocytes # (A) 0.36 X 10*3/uL (0.90-5.00); Lymphocytes % (A) 3.4 %; MCH 29.1 pg (27.0-32.0); MCHC 33.9 d/dL (32.0-37.0); MCV 85.9 FL (80.0-97.0); Mean Platelet Volume 12.4 FL (9.5-12.2); Monocytes # (A) 1.06 X 10*3/uL (0.20-1.00); Monocytes % (A) 9.9 %; NRBC Per 100 WBC 0 X 10*3/uL (0.00-0.01); Neutrophils # (A) 8.97 X 10*3/uL (1.80-7.70); Neutrophils % (A) 83.7 %; Platelet Count 250 X 10*3/uL (140-440); RBC 3.68 X 10*6/uL (4.10-5.20); RDW 15.2 % (11.5-14.5); WBC 10.71 X 10*3/uL (4.50-10.00)
[2023-04-05] MEDS: HEPARIN SODIUM,PORCINE 5,000 UNIT/ML 1 ML VIAL SQ SCH ×4 (10:28→23:30)
[2023-04-05] MEDS ORDERED: FLUTICASONE 50MCG/SPRAY NASAL 16GM EA NOSTRIL PRN (11:20)
--- NOTE | 2023-04-05 11:21 | P.PN ---
Subjective Progress Note Date: 04/05/23 No new complaints, still having some back pain and epigastric pain. Still feeling generally weak. Gen: awake, alert HEENT: normocephalic, atraumatic, good hearing acuity, moist mucous membranes Resp: good air exchange, breathing comfortably with no accessory muscle use CVS: good distal perfusion x 4, GI: soft, NTTP, distended, positive ascites : no SPT, no CVAT, nath catheter not present MSK: Bilateral pitting edema, no clubbing Neuro: non-focal, moving all extremities Psych: cooperative, euthymic mood Assessment/plan: Vitals: afebrile, 122/74, 75, 95% RA Labs: 10.71 WBC, Hgb 10.7; Na 126. BMP, Mg ordered for tomorrow Images: No new images to review. Consultation: Ortho spine surgery consulted Generalized Weakness Thoracic Compression Fracture - PT consult pending - pain control: norco 10/325 q4h PRN, add tylenol 650mg q4h PRN - bowel regimen: miralax 17gm daily, senokot-S 1 tab BID, bisacodyl 10mg rectal PRN - spine surgery consult Liver Cirrhosis secondary to NAFLD Hyponatremia Dehydration, resolved - weekly paracentesis - resume home lasix, spironolactone tomorrow AM - discontinue IV Fluids DM Paroxysmal Atrial Fibrillation Hx GI Bleeding Hypothyroidism Gout - Home meds reviewed and reconciled Full code DVT prophylaxis heparin subcu 3 times a day Objective - Vital Signs Vital signs: Vital Signs Temp 98.4 F 04/05/23 07:34 Pulse 75 04/05/23 07:34 Resp 17 04/05/23 07:34 BP 122/74 04/05/23 07:34 Pulse Ox 95 04/05/23 07:34 FiO2 Intake & Output 04/04/23 04/05/23 04/05/23 18:59 06:59 18:59 Output Total 500 Balance -500 Output: Urine 500 Other: Voiding Method Incontinent Incontinent External Catheter External Catheter External Catheter # Voids 1 1 - Labs CBC & Chem 7: 04/05/23 06:25 04/05/23 06:25 Labs: Abnormal Lab Results - Last 24 Hours (Table) 04/04/23 04/04/23 04/04/23 Range/Units 11:39 16:17 19:45 WBC (4.50-10.00) X 10*3/uL RBC (4.10-5.20) X 10*6/uL Hgb (12.0-15.0) d/dL Hct (37.2-46.3) % RDW (11.5-14.5) % MPV (9.5-12.2) FL Neutrophils # (1.80-7.70) X 10*3/uL Lymphocytes # (0.90-5.00) X 10*3/uL Monocytes # (0.20-1.00) X 10*3/uL Sodium (135-145) mmol/L Carbon Dioxide (21.6-31.8) mmol/L BUN (9.0-27.0) mg/dL Est GFR (CKD-EPI) (>=60) BUN/Creatinine Ratio (12.00-20.00) Ratio POC Glucose (mg/dL) 162 H 147 H 224 H (70-110) mg/dL Calcium (8.7-10.3) mg/dL 04/05/23 04/05/23 04/05/23 Range/Units 05:37 06:25 06:25 WBC 10.71 H (4.50-10.00) X 10*3/uL RBC 3.68 L (4.10-5.20) X 10*6/uL Hgb 10.7 L (12.0-15.0) d/dL Hct 31.6 L (37.2-46.3) % RDW 15.2 H (11.5-14.5) % MPV 12.4 H (9.5-12.2) FL Neutrophils # 8.97 H (1.80-7.70) X 10*3/uL Lymphocytes # 0.36 L (0.90-5.00) X 10*3/uL Monocytes # 1.06 H (0.20-1.00) X 10*3/uL Sodium 126 L (135-145) mmol/L Carbon Dioxide 18.1 L (21.6-31.8) mmol/L BUN 44.9 H (9.0-27.0) mg/dL Est GFR (CKD-EPI) 50 L (>=60) BUN/Creatinine Ratio 40.82 H (12.00-20.00) Ratio POC Glucose (mg/dL) 135 H (70-110) mg/dL Calcium 8.1 L (8.7-10.3) mg/dL
[2023-04-05 11:44] LABS: Glucose,Whole Blood 130 mg/dL (70-110)
--- NOTE | 2023-04-05 11:58 | P.CNOR ---
History of Present Illness - HPI Consult date: 04/05/23 Consult reason: back pain History of present illness: Patient is a pleasant 82-year-old female who seen and examined at bedside. The patient has a number of different medical issues and apparently had a paracente sis yesterday which she does weekly for her chronic cirrhosis. When she was home she felt slightly lightheaded and fell backwards onto her butt and back. She denies specific loss of consciousness. She denies any changes about in function of her upper extremities or lower extremity. She denies any numbness tingling in her upper or lower extremity is. She does admit to new pain at her upper back. She has a long history of low back pain and multiple surgeries on her lumbar back and she does not feel that that has changed acutely. She had recent injury at her left arm is wearing a long-arm cast at her left upper extremity. She says that has not had any changes. She is not having new pain at that area. She is feels the cast is fitting well. She denies any new weakness in her hands or bilateral lower extremity. Denies changes in bowel bladder function. Denies any chest pain shortness breath Review of Systems As per HPI. She says her pain at her upper thoracic spine is new for her. She is able to take deep breaths and coughs without too much trouble and she is able to move her upper extremities though she has cast of the left arm. She has long-term chronic low back pain for several decades. She has had multiple surgeries on her lumbar spine with fusions. She feels that has not changed. Past Medical History Past Medical History: Atrial Fibrillation, Asthma, Cancer, Diabetes Mellitus, Fibromyalgia, GERD/Reflux, Hyperlipidemia, Hypertension, Liver Disease, Osteoarthritis (OA), Pulmonary Embolus (PE), Thyroid Disorder Additional Past Medical History / Comment(s): Nonalcoholic fatty liver, liver cirrhosis, ascities with multiple paracentesis and has albumin infusions, esophageal varicies with banding, NIDDM type II, neuropathy bilateral legs/feet, spinal stenosis/low back pain with R side radiculopathy and lately has had pain down L leg, recent bilateral lower leg edema, PE after leg fracture, overactive bladder, hypothyroid, sinus problems, vertigo, bilateral macular d egeneration,skin cancer, History of Any Multi-Drug Resistant Organisms: None Reported Past Surgical History: Adenoidectomy, Appendectomy, Back Surgery, Breast Surgery, Hysterectomy, Joint Replacement, Orthopedic Surgery, Tonsillectomy Additional Past Surgical History / Comment(s): Multiple large volume paracentesis procedures, lower back and cervical fusions, bilateral total knees, bilateral total shoulders, bilateral carpal tunnel releases, bilateral hand trigger finger releases, R foot bone spur removed, R leg fracture/hardware removed, R breast fatty tumor removed, EGD with esophageal varicies banded, colonoscopy, skin cancer removed, bilateral cataracts removed., right chest mediport Past Anesthesia/Blood Transfusion Reactions: Motion Sickness, Postoperative Nausea & Vomiting (PONV) Additional Past Anesthesia/Blood Transfusion Reaction / Comm: previous blood transfusions at [facility] Past Psychological History: No Psychological Hx Reported Additional Psychological History / Comment(s): Pt resides with her son. Son organizes her medications. She has a cane, walker, scooter or a wheelchair. She no longer drives, her son takes her to appts and cooks dinner because pt has difficulty standing very long d/t back pain. Smoking Status: Former smoker Past Alcohol Use History: None Reported Additional Past Alcohol Use History / Comment(s): Pt started smoking in 1986 and quit in 1991. Past Drug Use History: None Reported - Past Family History Mother History Unknown: Yes Family Medical History: No Reported History Additional Family Medical History / Comment(s): Mother was healthy and lived to be 87yrs old. Father History Unknown: Yes Additional Family Medical History / Comment(s): Father in a MVA Daughter(s) Family Medical History: Cancer Medications and Allergies Home Medications Medication Instructions Recorded Confirmed Type Levothyroxine Sodium [Synthroid] 25 mcg PO DAILY@0600 03/23/14 04/03/23 History Montelukast [Singulair] 10 mg PO HS@209903/23/14 04/03/23 History oxyBUTYnin chloride [Ditropan XL] 10 mg PO HS@209903/23/14 04/03/23 History EPINEPHrine (Auto Inject) [Epipen] 0.3 mg IM ONCE PRN 04/13/20 04/03/23 History Folic Acid 1 mg PO DAILY@1200 30 Days #30 tab 09/03/20 04/03/23 Rx Midodrine [ProAmatine] 2.5 mg PO AC-TID 09/10/20 04/03/23 History Escitalopram [Lexapro] 5 mg PO HS@209910/12/20 04/03/23 History sitaGLIPtin [Januvia] 50 mg PO DAILY@0600 12/21/20 04/03/23 History Furosemide [Lasix] 40 mg PO DAILY@0600 01/22/21 04/03/23 History Spironolactone [Aldactone] 25 mg PO BID@1200,2100 01/22/21 04/03/23 History Thiamine [Vitamin B-1] 100 mg PO HS@209901/22/21 04/03/23 History Ferrous Sulfate [Iron (65 MG 325 mg PO HS@209903/22/21 04/03/23 History Elemental)] hydrOXYzine HCL [Atarax] 10 - 20 mg PO HS@2099 PRN 03/22/21 04/03/23 History Furosemide [Lasix] 20 mg PO HS@209901/31/22 04/03/23 History allopurinoL [Zyloprim] 100 mg PO HS 01/31/22 04/03/23 History HYDROcodone/APAP 10-325MG [[place] 1 tab PO QID PRN 01/09/23 04/03/23 History 10-325] Bismuth Subsalicylate 262 - 524 mg PO Q1H PRN MDD 120 mls 04/03/23 04/03/23 History [Pepto-Bismol] Ergocalciferol (Vitamin D2) 1,250 mcg PO SA 04/03/23 04/03/23 History [Drisdol (50,000 Iu)] Fluticasone Nasal [place] [Flonase 1 spray EA NOSTRIL BID PRN 04/03/23 04/03/23 History Nasal [place]] Allergies Allergy/AdvReac Type Severity Reaction Status Date / Time venom-wasp [Wasp Venom] Allergy Severe Swelling Verified 04/03/23 19:13 adhesive Allergy Unknown Rash/Hives Verified 04/03/23 19:13 amoxicillin [Amoxicillin] Allergy Unknown Rash/Hives, Verified 04/03/23 19:13 itching fenofibrate nanocrystallized Allergy Unknown Rash/Hives,joint Verified 04/03/23 19:13 [From Tricor] pain fenofibrate,micronized Allergy Unknown Rash/Hives, Verified 04/03/23 19:13 [From Tricor] joint pain hydrochlorothiazide Allergy Unknown Rash/Hives Verified 04/03/23 19:13 Neuromuscular Blockers, Allergy Unknown Rash/Hives Verified 04/03/23 19:13 Steroidal [Steroidal Neuromuscular Blockers] Penicillins Allergy Unknown Rash/Hives, Verified 04/03/23 19:13 red skin shellfish derived Allergy Unknown SKIN RED Verified 04/03/23 19:13 AND WARM simvastatin [From Zocor] Allergy Unknown Rash/Hives, Verified 04/03/23 19:13 joint pain [id number]-VvM Reductase Allergy Unknown Rash/Hives, Verified 04/03/23 19:13 Inhibitor joint pain [Kebfiud-Gra-Oyn Reductase Inhibitor] venom-honey bee Allergy Unknown Swelling Verified 04/03/23 19:13 [bee venom (honey bee)] cat dander Allergy Rash/Hives Verified 04/03/23 19:13 ciprofloxacin HCl Allergy Unknown Verified 04/03/23 19:13 [From Cipro] sulfamethoxazole Allergy Rash/Hives Verified 04/03/23 19:13 talc Allergy Rash/Hives Verified 04/03/23 19:13 walnut Allergy Rash/Hives Verified 04/03/23 19:13 clarithromycin AdvReac warm and Verified 04/03/23 19:13 flushed lactose AdvReac Abdominal Verified 04/03/23 19:13 Pain minocycline AdvReac warm and Verified 04/03/23 19:13 flushed peanut [Peanut Butter] AdvReac Nausea Verified 04/03/23 19:13 prednisone AdvReac Nausea Verified 04/03/23 19:13 soy AdvReac Nausea & Verified 04/03/23 19:13 Vomiting Physical Examination Osteopathic Statement: *. No significant issues noted on an osteopathic structural exam other than those noted in the History and Physical/Consult. - L Spine: dermatomal strength & reflexes bilateral Strength: hip flexion: 5/5 (At her lower back incision site is well-healed. It appears stable. There is no erythema. She has no specific tenderness or point tenderness in her lower back. There is no new skin changes.) Strength: hip extension: 5/5 (At her upper back at the upper thoracic spine she has tenderness to palpation over the midline. There is no skin changes. Her upper extremities and lower extremity have sustained strength in her ankles. Toes and fingers and hands. Left upper extremity cast is intact) Results - Labs Labs: Abnormal Lab Results - Last 24 Hours (Table) 04/04/23 04/04/23 04/05/23 Range/Units 16:17 19:45 05:37 WBC (4.50-10.00) X 10*3/uL RBC (4.10-5.20) X 10*6/uL Hgb (12.0-15.0) d/dL Hct (37.2-46.3) % RDW (11.5-14.5) % MPV (9.5-12.2) FL Neutrophils # (1.80-7.70) X 10*3/uL Lymphocytes # (0.90-5.00) X 10*3/uL Monocytes # (0.20-1.00) X 10*3/uL Sodium (135-145) mmol/L Carbon Dioxide (21.6-31.8) mmol/L BUN (9.0-27.0) mg/dL Est GFR (CKD-EPI) (>=60) BUN/Creatinine Ratio (12.00-20.00) Ratio POC Glucose (mg/dL) 147 H 224 H 135 H (70-110) mg/dL Calcium (8.7-10.3) mg/dL 04/05/23 04/05/23 04/05/23 Range/Units 06:25 06:25 11:40 WBC 10.71 H (4.50-10.00) X 10*3/uL RBC 3.68 L (4.10-5.20) X 10*6/uL Hgb 10.7 L (12.0-15.0) d/dL Hct 31.6 L (37.2-46.3) % RDW 15.2 H (11.5-14.5) % MPV 12.4 H (9.5-12.2) FL Neutrophils # 8.97 H (1.80-7.70) X 10*3/uL Lymphocytes # 0.36 L (0.90-5.00) X 10*3/uL Monocytes # 1.06 H (0.20-1.00) X 10*3/uL Sodium 126 L (135-145) mmol/L Carbon Dioxide 18.1 L (21.6-31.8) mmol/L BUN 44.9 H (9.0-27.0) mg/dL Est GFR (CKD-EPI) 50 L (>=60) BUN/Creatinine Ratio 40.82 H (12.00-20.00) Ratio POC Glucose (mg/dL) 130 H (70-110) mg/dL Calcium 8.1 L (8.7-10.3) mg/dL H & H 04/03/23 04/05/23 Range/Units 13:20 06:25 Hgb 10.3 L 10.7 L (11.4-16.0) gm/dL Hct 30.9 L 31.6 L (34.0-46.0) % Result Diagrams: 04/05/23 06:25 04/05/23 06:25 - Diagnostic results Lumbar AP/lateral x-ray: report reviewed (She has disc syndrome. At the upper thoracic spine there is some evidence of compression at T5. It is difficult to determine on film if this is a new fracture or physiologic for her), image reviewed (Thoracic and lumbar x-rays show history of prior fusion L2 to L4 with anterior posterior fusion. Appears to be stable. She has significant degenerative spondylosis particular L4 5 and L5-S1. There is sclerotic margins around L5.) Assessment and Plan Assessment: 82-year-old female status post fall with new upper thoracic back pain Muscle medical issues including liver failure with weekly paracentesis New likely T5 compression deformity, traumatic due to fall Chronic low back pain with history of prior fusion at L2 to L4 which appears stable and degenerative spondylosis L4 to S1 which appears stable Left upper extremity cast with subacute elbow fracture being treated conservat ively Plan: 82-year-old female status post fall with new upper thoracic back pain Muscle medical issues including liver failure with weekly paracentesis New likely T5 compression deformity, traumatic due to fall Chronic low back pain with history of prior fusion at L2 to L4 which appears stable and degenerative spondylosis L4 to S1 which appears stable Left upper extremity cast with subacute elbow fracture being treated conservatively The patient seems to have a new compression deformity at T5. Her clinical exam she has pain which correlates with the compression deformity think that this is due to her fall. She is not having any new neurologic changes or neurologic deficits and I think that this can be treated conservatively. We'll plan to order a spinomed TLSO brace for her that she should wear whenever she is out of bed ambulating or seated upright. She does not need to use the brace while she is elevated less than 60 or in bed or while bathing. It is okay for her to ambulate with the brace on. We will have therapy work with her for her mobilization as well. I placed an order in the chart for her. Her left elbow has a subacute fracture being treated conservatively with casting. The cast appears to be stable and she should follow up as scheduled. She has a long history of liver failure and gets regular paracentesis and she should continue with her medical management for her multiple medical issues.
[2023-04-05] MEDS: SPIRONOLACTONE 25 MG TAB PO SCH ×2 (13:45→21:10)
[2023-04-05] MEDS: FOLIC ACID 1 MG TAB PO SCH (13:45)
[2023-04-05 16:57] LABS: Glucose,Whole Blood 155 mg/dL (70-110)
[2023-04-05] MEDS: THIAMINE 100 MG TAB PO SCH (21:10)
[2023-04-05] MEDS: allopurinoL 100 MG TAB PO SCH (21:10)
[2023-04-05] MEDS: MONTELUKAST 10 MG TAB PO SCH (21:10)
[2023-04-05] MEDS: ESCITALOPRAM 5 MG TAB PO SCH (21:10)
[2023-04-05] MEDS: FERROUS SULFATE 325 MG TAB PO SCH (21:10)
[2023-04-05 21:45] LABS: Glucose,Whole Blood 147 mg/dL (70-110)
[2023-04-05] MEDS: OXYBUTYNIN 10 MG TAB.ER.24 PO SCH (21:57)
[2023-04-06] MEDS: HYDROcodone/APAP 10-325MG 1 EACH TAB PO PRN ×3 (02:08→21:03)
[2023-04-06 05:57] LABS: Glucose,Whole Blood 118 mg/dL (70-110)
[2023-04-06] MEDS: MIDODRINE 5 MG TAB PO SCH ×3 (06:03→17:47)
[2023-04-06] MEDS: LEVOTHYROXINE 25 MCG TAB PO SCH (06:03)
[2023-04-06] MEDS: FUROSEMIDE 40 MG TAB PO SCH (06:03)
[2023-04-06] MEDS: INSULIN ASPART (NovoLOG) 100 UNIT/ML VIAL SQ SCH ×4 (06:05→21:00)
[2023-04-06] MEDS: HEPARIN SODIUM,PORCINE 5,000 UNIT/ML 1 ML VIAL SQ SCH ×2 (08:22→17:05)
--- NOTE | 2023-04-06 09:22 | XR ---
EXAMINATION TYPE: XR elbow limited LT DATE OF EXAM: 04/06/2023 9:09 AM INDICATION: Patient age:Female; 82 years old; Reason for study: Known Monteggia Fx; with cast intact; PHH. COMPARISON: Left elbow radiograph 03/15/2023 TECHNIQUE: The left elbow was examined in AP and lateral projections. FINDINGS: Overlying cast material limits valuation the fine osseous detail . Redemonstration of trans verse fracture through the proximal ulna with posterior apex angulation. Fracture line is still visib le. No callus formation. Mild surrounding soft tissue swelling. No gross evidence of joint effusion. IMPRESSION: Redemonstration of transverse fracture of the proximal ulna with posterior apex angulation. Fracture line is still visible without callus formation.
--- NOTE | 2023-04-06 09:25 | P.PN ---
Progress Note - Text Progress Note Date: 04/06/23 Orthopedic spine: History of present illness: Patient is a very pleasant 82-year-old female who is seen and examined at the bedside for follow up evaluation for her known T5 fracture. Prescription was written yesterday to obtain a TLSO brace. This has not been fitted and delivered yet today. Hopefully case management is able to obtain this brace today. Patient has not had any change in her symptoms as compared to yesterday. She does have pain at the mid upper thoracic spine. She does not have a significant history regards to her spine with multiple surgical interventions at her cervical and lumbar spine. Patient is also known to have recently sustained a fracture to her left elbow. She has a Monteggia fracture. She's been following with Dr. Sahni in the outpatient setting. She sustained a fracture on 03/15/2023. She currently has a long-arm cast intact over her left upper extremity. She is scheduled for follow up evaluation outpatient setting tomorrow. She'll be unable to keep this appointment due to her inpatient status to the hospital. Patient does not feel she would be unable to manage in the outpatient setting independently. She would consider discharge to a rehabilitation facility. Patient is admitted to medicine and continues to be seen and examined by medicine. 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 Patient does not have any new complaints at the bedside. Physical Exam: Patient is awake, alert, and oriented 3 Vital signs stable Good chest excursion with deep inspiration and expiration Pain with palpation along the midline in the mid upper thoracic spine Thoracic skin is soft to palpation Long-arm cast intact of the left upper extremity Good active range of motion of the right upper extremity and apparently without difficulty Assessment: Acute T5 compression fracture deformity Acute thoracic back pain Status post fall Left elbow Monteggia fracture apparently long-arm cast History cervical fusion L2-4 lumbar fusion with retained hardware L4-5 and L5-S1 degenerative disc disease with spondylosis Atrial fibrillation Diabetes mellitus Fibromyalgia Hyperlipidemia Hypertension Nonalcoholic fatty liver with cirrhosis with ascites with weekly paracentesis Plan: 1. After reviewing of imaging, physical examination the patient, and further discussion with the patient, will currently planned to continue with conservative treatment at this time. At this time we'll plan for bracing. A prescription has been written and provided to case management for a TLSO brace for her T5 fracture. Once this brace is delivered and fitted appropriately, patient should wear this brace while sitting upright at greater than 45, during increase activities, during ambulation. Brace does not have to or while lying in bed or while bathing. We did discuss patient may remain in bed until the delivering and fitting of this brace. We are not currently planning for surgical intervention regards to her thoracic spine. Following fitting of this brace, patient is clear for discharge from an orthopedic spine standpoint. Following discharge, patient may follow-up with Kevin Fregoso PA-C or Dr. Wayne Espinal at [facility]. 2. Patient is known to have a left elbow Monteggia fracture. She is in a long- arm cast. She was scheduled for follow-up evaluation with Dr. Sahni tomorrow, 04/07/2023. Due to her inpatient status she will not be able to keep this appointment. She may also be planning for discharge to a rehabilitation facility and have difficulty with current scheduled follow-up appointment. We will plan to cancel her scheduled follow-up appointment tomorrow and reschedule her for follow-up evaluation Dr. Sahni for her left elbow in 2 weeks. During her admission we'll plan to obtain new x-rays of her left elbow for further evaluation. We will keep her long-arm cast clean, dry, and intact. 3. Patient will continue receiving examined by medicine for multiple other medical diagnoses 4. Consultation has been placed for case management for discharge planning to discuss possible discharged to a rehabilitation facility
[2023-04-06 11:08] LABS: BUN/Creat Ratio 40.91 Ratio (12.00-20.00); Calcium 8.3 mg/dL (8.7-10.3); Carbon Dioxide 18.2 mmol/L (21.6-31.8); Chloride 95 mmol/L (96-109); Glucose 119 mg/dL (70-110); Magnesium 2.3 mg/dL (1.5-2.4); Potassium 5.3 mmol/L (3.5-5.5); Sodium 125 mmol/L (135-145)
[2023-04-06 11:19] LABS: Glucose,Whole Blood 139 mg/dL (70-110)
[2023-04-06] MEDS: FOLIC ACID 1 MG TAB PO SCH (12:29)
[2023-04-06] MEDS: SPIRONOLACTONE 25 MG TAB PO SCH ×2 (12:29→21:03)
--- NOTE | 2023-04-06 14:53 | P.PN ---
Subjective Progress Note Date: 04/06/23 No new complaints, still having some back pain and epigastric pain. Still feeling generally weak. Gen: awake, alert HEENT: normocephalic, atraumatic, good hearing acuity, moist mucous membranes Resp: good air exchange, breathing comfortably with no accessory muscle use CVS: good distal perfusion x 4, GI: soft, NTTP, distended, positive ascites : no SPT, no CVAT, nath catheter not present MSK: Bilateral pitting edema, no clubbing Neuro: non-focal, moving all extremities Psych: cooperative, euthymic mood Assessment/plan: Vitals: afebrile, 122/74, 75, 95% RA Labs: 10.71 WBC, Hgb 10.7; Na 126. BMP, Mg ordered for tomorrow Images: No new images to review. Consultation: Ortho spine surgery consulted Generalized Weakness Thoracic Compression Fracture - PT consult pending - pain control: norco 10/325 q4h PRN, add tylenol 650mg q4h PRN - bowel regimen: miralax 17gm daily, senokot-S 1 tab BID, bisacodyl 10mg rectal PRN - spine surgery consult Liver Cirrhosis secondary to NAFLD Hyponatremia Dehydration, resolved - weekly paracentesis, plan for additional therapeutic session tomorrow - resume home lasix, spironolactone tomorrow AM - discontinue IV Fluids DM Paroxysmal Atrial Fibrillation Hx GI Bleeding Hypothyroidism Gout - Home meds reviewed and reconciled Full code DVT prophylaxis heparin subcu 3 times a day Objective - Vital Signs Vital signs: Vital Signs Temp 98.7 F 04/06/23 13:22 Pulse 106 H 04/06/23 13:22 Resp 19 04/06/23 13:22 BP 186/68 04/06/23 13:22 Pulse Ox 97 04/06/23 13:22 FiO2 Intake & Output 04/05/23 04/06/23 04/06/23 18:59 06:59 18:59 Intake Total 100 Output Total 600 Balance -600 100 Intake: Oral 100 Output: Urine 600 Other: Voiding Method External Catheter External Catheter External Catheter - Labs CBC & Chem 7: 04/05/23 06:25 04/06/23 08:31 Labs: Abnormal Lab Results - Last 24 Hours (Table) 04/05/23 04/05/23 04/06/23 Range/Units 16:52 21:43 05:55 Sodium (135-145) mmol/L Chloride (96-109) mmol/L Carbon Dioxide (21.6-31.8) mmol/L BUN (9.0-27.0) mg/dL Est GFR (CKD-EPI) (>=60) BUN/Creatinine Ratio (12.00-20.00) Ratio Glucose (70-110) mg/dL POC Glucose (mg/dL) 155 H 147 H 118 H (70-110) mg/dL Calcium (8.7-10.3) mg/dL 04/06/23 04/06/23 Range/Units 08:31 11:17 Sodium 125 L (135-145) mmol/L Chloride 95 L (96-109) mmol/L Carbon Dioxide 18.2 L (21.6-31.8) mmol/L BUN 45.0 H (9.0-27.0) mg/dL Est GFR (CKD-EPI) 50 L (>=60) BUN/Creatinine Ratio 40.91 H (12.00-20.00) Ratio Glucose 119 H (70-110) mg/dL POC Glucose (mg/dL) 139 H (70-110) mg/dL Calcium 8.3 L (8.7-10.3) mg/dL
[2023-04-06] MEDS: HYDROmorphone 1 MG/ML 1 ML SYRINGE IVP PRN (15:04)
[2023-04-06 16:21] LABS: Glucose,Whole Blood 149 mg/dL (70-110)
[2023-04-06 18:12] LABS: INR 1.2 (<1.2); Prothrombin Time 12.6 sec (9.0-12.0)
[2023-04-06 20:46] LABS: Glucose,Whole Blood 128 mg/dL (70-110)
[2023-04-06] MEDS: MONTELUKAST 10 MG TAB PO SCH (21:03)
[2023-04-06] MEDS: allopurinoL 100 MG TAB PO SCH (21:03)
[2023-04-06] MEDS: FERROUS SULFATE 325 MG TAB PO SCH (21:04)
[2023-04-06] MEDS: ESCITALOPRAM 5 MG TAB PO SCH (21:04)
[2023-04-06] MEDS: THIAMINE 100 MG TAB PO SCH (21:04)
[2023-04-06] MEDS: OXYBUTYNIN 10 MG TAB.ER.24 PO SCH (21:04)
[2023-04-07] MEDS: HEPARIN SODIUM,PORCINE 5,000 UNIT/ML 1 ML VIAL SQ SCH ×3 (00:21→15:51)
[2023-04-07 06:29] LABS: Glucose,Whole Blood 124 mg/dL (70-110)
[2023-04-07] MEDS: INSULIN ASPART (NovoLOG) 100 UNIT/ML VIAL SQ SCH ×3 (06:31→16:55)
[2023-04-07] MEDS: LEVOTHYROXINE 25 MCG TAB PO SCH (06:34)
[2023-04-07] MEDS: FUROSEMIDE 40 MG TAB PO SCH (06:34)
[2023-04-07] MEDS: MIDODRINE 5 MG TAB PO SCH ×3 (08:36→16:54)
[2023-04-07] MEDS: FOLIC ACID 1 MG TAB PO SCH (08:37)
--- NOTE | 2023-04-07 09:07 | P.PN ---
Progress Note - Text Progress Note Date: 04/07/23 Orthopedic spine: History of present illness: Patient is a very pleasant 82-year-old female who is seen and examined at the bedside for follow up evaluation for her known T5 fracture. Prescription was previously written to obtain a TLSO brace. This brace was brought to the bedside with the patient and nursing states the brace is taken back with them for readjustment. Hopefully this brace is brought back today and fitted appropriately for the patient. Patient has not had any change in her symptoms as compared to yesterday. She does have pain at the mid upper thoracic spine. She does not have a significant history regards to her spine with multiple surgical interventions at her cervical and lumbar spine. Patient is also known to have recently sustained a fracture to her left elbow. She has a Monteggia fracture. She's been following with Dr. Sahni in the outpatient setting. She sustained a fracture on 03/15/2023. She currently has a long-arm cast intact over her left upper extremity. Repeat x-ray imaging of the left elbow was taken yesterday which showed stable fracture. Her scheduled appointment for today has been canceled and a new appointment will be set up for her morning appointment in approximately 2 weeks. Patient does not feel she would be unable to manage in the outpatient setting independently. She is planning for discharge to a rehabilitation facility. Patient is admitted to medicine and continues to be seen and examined by medicine. 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 Patient does not have any new complaints at the bedside. Physical Exam: Patient is awake, alert, and oriented 3 Vital signs stable Good chest excursion with deep inspiration and expiration Pain with palpation along the midline in the mid upper thoracic spine Thoracic skin is soft to palpation Long-arm cast intact of the left upper extremity Good active range of motion of the right upper extremity and apparently without difficulty Pertinent studies: X-ray the left elbow taken on 04/06/2023: Redemonstrated transverse fracture of the proximal ulna with posterior apex angulation; fracture line is still visible without callus formation Assessment: Acute T5 compression fracture deformity Acute thoracic back pain Status post fall Left elbow Monteggia fracture apparently long-arm cast History cervical fusion L2-4 lumbar fusion with retained hardware L4-5 and L5-S1 degenerative disc disease with spondylosis Atrial fibrillation Diabetes mellitus Fibromyalgia Hyperlipidemia Hypertension Nonalcoholic fatty liver with cirrhosis with ascites with weekly paracentesis Plan: 1. We'll continue with our plan as set forth previously. After reviewing of imaging, physical examination the patient, and further discussion with the patient, will currently planned to continue with conservative treatment at this time. At this time we'll plan for bracing. A prescription has been written and provided to case management for a TLSO brace for her T5 fracture. This brace was brought yesterday but taken back with the DME provider. Patient nursing is unsure if this was due to make an adjustment. Hopefully this brace is brought back today and fitted for the patient Once this brace is delivered and fitted appropriately, patient should wear this brace while sitting upright at greater than 45, during increase activities, during ambulation. Brace does not have to or while lying in bed or while bathing. We did discuss patient may remain in bed until the delivering and fitting of this brace. We are not currently planning for surgical intervention regards to her thoracic spine. Following fitting of this brace, patient is clear for discharge from an orthopedic spine standpoint. Following discharge, patient may follow-up with Kevin Fregoso PA-C or Dr. Wayne Espinal at [facility]. 2. Patient is known to have a left elbow Monteggia fracture. She is in a long- arm cast. She was scheduled for follow-up evaluation with Dr. Sahni today, 04/07/2023. Due to her inpatient status she will not be able to keep this appointment. He had canceled this appointment and will schedule a follow-up appointment in approximately 2 weeks. Reimaging of her left elbow was taken yesterday which showed evidence of stable fracture. We did discuss she should keep her long-arm cast clean, dry, and intact. 3. Patient will continue receiving examined by medicine for multiple other medical diagnoses 4. Consultation has been placed for case management for discharge planning to discuss possible discharged to a rehabilitation facility
[2023-04-07] MEDS: HYDROmorphone 1 MG/ML 1 ML SYRINGE IVP PRN ×2 (10:31→15:47)
[2023-04-07 11:03] LABS: Glucose,Whole Blood 116 mg/dL (70-110)
[2023-04-07 13:15] LABS: BUN/Creat Ratio 42.27 Ratio (12.00-20.00); Blood Urea Nitrogen 46.5 mg/dL (9.0-27.0); Calcium 8.3 mg/dL (8.7-10.3); Carbon Dioxide 17.5 mmol/L (21.6-31.8); Chloride 97 mmol/L (96-109); Glucose 101 mg/dL (70-110); Magnesium 2.4 mg/dL (1.5-2.4); Potassium 5.4 mmol/L (3.5-5.5); Sodium 126 mmol/L (135-145)
--- NOTE | 2023-04-07 13:52 | P.DS ---
Providers Date of admission: 04/03/23 18:36 Expected date of discharge: 04/07/23 Attending physician: Jennifer Baumann MD Consults: 04/05/23 10:22 Consult Physician Routine Consulting Provider: Rosita Espinal Consult Reason/Comments: back pain. thoracic fractures noted on imaging. Do you want consulting provider notified?: Yes Primary care physician: Edin Pineda MD Hospital Course: 82 year old F with PMH of AFib, cirrhosis, DM, Fibromyalgia, GERD, HTN, HLD, Hypothyroidism presents to the ED after falling on her back. Of note, she recently underwent paracentesis with 6.6L removed that day when she felt lightheaded prior to the fall. She is not on AC due to history of GI bleed. In the ED, her vital signs were stable. CBC showed hemoglobin of 10.3. CMP showed sodium of 127, bicarb of 19, BUN 47, glucose 102, AST 58, alkaline phosphatase 154, albumin 3.1. CT head and C-spine with no acute pathology. 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 Elbow x- ray showed transverse fracture of the proximal ulna with posterior apex angulation. Patient was admitted for further management. PTOT evaluated the patient recommended SNF. Patient was agreeable for [facility]. Orthopedic surgery consulted recommend TLSO brace for comfort and support while sitting upright greater than 45 and while working with therapy or ambulating, avoid excessive bending/twisting/lifting greater than 10 pounds, left upper extremity long-arm cast and avoid heavy lifting with left upper extremity. 04/07 Patient was seen and examined. No acute events overnight. Patient reports continued pain in her left elbow and pain between her shoulder blades. Pain is 9 out of 10 in severity. Pain is relieved with Dilaudid. BMP done today shows sodium of 126, bicarb 17.5, BUN 46.5, calcium 8.3. Plans for discharge to [facility]. Follow-up with PCP within 1-2 days of discharge. Follow-up with orthopedic surgery on 04/21 and 04/28. Pertinent studies as above. General: non toxic, no distress, appears at stated age Derm: warm, dry Head: atraumatic, normocephalic, symmetric Eyes: EOMI, no lid lag, anicteric sclera Cardiovascular: Good distal perfusion in all 4 extremities Lungs: Breathing comfortably , no accessory muscle use Ext: no gross muscle atrophy, no edema, no contractures Neuro: no focal neuro deficits Psych: Alert, oriented, appropriate affect Discharge diagnosis: Generalized Weakness Thoracic Compression Fracture Ulnar fracture Liver Cirrhosis secondary to NAFLD Hyponatremia Dehydration, resolved DM Paroxysmal Atrial Fibrillation Hx GI Bleeding Hypothyroidism Gout This complex discharge took 35 minutes to complete. Patient Condition at Discharge: Stable Plan - Discharge Summary Discharge Rx Participant: No New Discharge Prescriptions: Continue Montelukast [Singulair] 10 mg PO HS@2100 Levothyroxine Sodium [Synthroid] 25 mcg PO DAILY@0600 oxyBUTYnin chloride [Ditropan XL] 10 mg PO HS@2100 EPINEPHrine (Auto Inject) [Epipen] 0.3 mg IM ONCE PRN PRN Reason: Anaphylaxis Folic Acid 1 mg PO DAILY@1200 30 Days #30 tab Midodrine [ProAmatine] 2.5 mg PO AC-TID Escitalopram [Lexapro] 5 mg PO HS@2100 Furosemide [Lasix] 40 mg PO DAILY@0600 Spironolactone [Aldactone] 25 mg PO BID@1200,2100 hydrOXYzine HCL [Atarax] 10 - 20 mg PO HS@2100 PRN PRN Reason: Anxiety/sleep Ferrous Sulfate [Iron (65 MG Elemental)] 325 mg PO HS@2100 allopurinoL [Zyloprim] 100 mg PO HS Ergocalciferol (Vitamin D2) [Drisdol (50,000 Iu)] 1,250 mcg PO SA Fluticasone Nasal [place] [Flonase Nasal [place]] 1 spray EA NOSTRIL BID PRN PRN Reason: Allergy Symptoms sitaGLIPtin [Januvia] 50 mg PO DAILY@0600 Thiamine [Vitamin B-1] 100 mg PO HS@2100 Furosemide [Lasix] 20 mg PO HS@2100 Bismuth Subsalicylate [Pepto-Bismol] 262 - 524 mg PO Q1H PRN MDD 120 mls PRN Reason: Gi Upset HYDROcodone/APAP 10-325MG [Price 10-325] 1 tab PO QID PRN #12 tab PRN Reason: Pain Discharge Medication List Levothyroxine Sodium [Synthroid] 25 mcg PO DAILY@0600 03/23/14 [History] Montelukast [Singulair] 10 mg PO HS@209903/23/14 [History] oxyBUTYnin chloride [Ditropan XL] 10 mg PO HS@209903/23/14 [History] EPINEPHrine (Auto Inject) [Epipen] 0.3 mg IM ONCE PRN 04/13/20 [History] Folic Acid 1 mg PO DAILY@1200 30 Days #30 tab 09/03/20 [Rx] Midodrine [ProAmatine] 2.5 mg PO AC-TID 09/10/20 [History] Escitalopram [Lexapro] 5 mg PO HS@209910/12/20 [History] sitaGLIPtin [Januvia] 50 mg PO DAILY@59912/21/20 [History] Furosemide [Lasix] 40 mg PO DAILY@59901/22/21 [History] Spironolactone [Aldactone] 25 mg PO BID@1199,209901/22/21 [History] Thiamine [Vitamin B-1] 100 mg PO HS@209901/22/21 [History] Ferrous Sulfate [Iron (65 MG Elemental)] 325 mg PO HS@209903/22/21 [History] hydrOXYzine HCL [Atarax] 10 - 20 mg PO HS@2099 PRN 03/22/21 [History] Furosemide [Lasix] 20 mg PO HS@209901/31/22 [History] allopurinoL [Zyloprim] 100 mg PO HS 01/31/22 [History] Bismuth Subsalicylate [Pepto-Bismol] 262 - 524 mg PO Q1H PRN MDD 120 mls 04/03/23 [History] Ergocalciferol (Vitamin D2) [Drisdol (50,000 Iu)] 1,250 mcg PO SA 04/03/23 [History] Fluticasone Nasal [place] [Flonase Nasal [place]] 1 spray EA NOSTRIL BID PRN 04/03/23 [History] HYDROcodone/APAP 10-325MG [Price 10-325] 1 tab PO QID PRN #12 tab 04/07/23 [Rx] Follow up Appointment(s)/Referral(s): Edin Pineda MD [Primary Care Provider] - 1-2 days Kevin Fregoso PAC [PHYSICIAN SHIP CAPTAIN] - 04/28/23 1:00 pm (Patient may follow-up with Kevin Fregoso PA-C or Dr. Wayne Espinal at [facility] in 2-3 weeks following discharge. She requests a morning appointment. ) [facility] [place], [NON-STAFF] - As Needed Simone Sahni MD [STAFF PHYSICIAN] - 04/21/23 2:00 pm (Patient may follow-up with Dr. Simone Sahni at [facility] in 2 weeks following discharge for further evaluation of her left elbow. She requests a morning appointment. ) Tosin Rodriguez [NON-STAFF] - 1 Week (TLSO back brace) Activity/Diet/Wound Care/Special Instructions: 1. Patient may wear TLSO brace for comfort and support while sitting upright at greater than 45, while working with therapy, and while ambulating; patient does not have to wear the brace while lying in bed or bathing 2. Patient should avoid excessive bending, twisting, and lifting; no lifting greater than 10 pounds 3. Keep left upper extremity long-arm cast clean, dry, and intact 4. Avoid heavy lifting or activities with her left upper extremity Discharge Disposition: TRANSFER TO SNF/ECF
[2023-04-07 15:36] VITALS: BP 148/83; PULSE 81; RESP 17; TEMP 97.6
[2023-04-07] MEDS: SPIRONOLACTONE 25 MG TAB PO SCH (15:41)
[2023-04-07] MEDS: ALBUMIN HUMAN 25% 50 ML in EMPTY BAG 1 BAG IVPB SCH ×3 (15:49→16:53)
--- NOTE | 2023-04-07 15:56 | US ---
Ultrasound-guided paracentesis. DATE OF EXAM: 04/07/2023 CLINICAL HISTORY: ascites The procedure was discussed with the patient. The risks, complications, benefits, and alternatives we re discussed and any questions were answered. Informed consent was obtained. The patient was placed s upine on the ultrasound table and prepped and draped in the usual sterile fashion. All elements of maximal barrier technique were utilized. Under ultrasound guidance, access into the right lower quadrant was obtained, via the paracentesis catheter system and direct ultrasound guidanc e. Approximately 5.2sliters of straw-colored fluid was removed. The patient was stable throughout the pr ocedure and remained stable upon discharge from Department of Radiology. IMPRESSION: Successful paracentesis under ultrasound guidance.
[2023-04-07 16:15] LABS: Glucose,Whole Blood 147 mg/dL (70-110)
[2023-04-07] MEDS: HYDROcodone/APAP 10-325MG 1 EACH TAB PO PRN (17:45)
[2023-04-11] MEDS ORDERED: ERGOCALCIFEROL 1,250 MCG (50,000 IU) CAPSULE PO SCH (09:00)
== END 2023-04-07 19:11 | DRG 552 ==
LOC: EC 13:05 → 4SSUR 18:36
PROVIDERS: ADMIT Internal Medicine; ATTEND Internal Medicine
PROC: 0W9G3ZZ Drainage of Peritoneal Cavity, Percutaneous Approach (ICD-10-PCS; principal; 2023-04-07)
DX: S22.050A Wedge compression fracture of T5-T6 vertebra, initial encounter for closed fracture (principal); E87.1 Hypo-osmolality and hyponatremia; R18.8 Other ascites; K72.90 Hepatic failure, unspecified without coma; E11.41 Type 2 diabetes mellitus with diabetic mononeuropathy; I48.0 Paroxysmal atrial fibrillation; E86.0 Dehydration; S09.90XA Unspecified injury of head, initial encounter; K74.60 Unspecified cirrhosis of liver; K76.0 Fatty (change of) liver, not elsewhere classified; E03.9 Hypothyroidism, unspecified; G57.93 Unspecified mononeuropathy of bilateral lower limbs; M10.9 Gout, unspecified; M51.37 Other intervertebral disc degeneration, lumbosacral region; M51.16 Intervertebral disc disorders with radiculopathy, lumbar region; M48.061 Spinal stenosis, lumbar region without neurogenic claudication; I10 Essential (primary) hypertension; G89.29 Other chronic pain; L30.9 Dermatitis, unspecified; M79.7 Fibromyalgia; E78.5 Hyperlipidemia, unspecified; N32.81 Overactive bladder; D64.9 Anemia, unspecified; H35.30 Unspecified macular degeneration; S52.272D Monteggia's fracture of left ulna, subsequent encounter for closed fracture with routine healing; K21.9 Gastro-esophageal reflux disease without esophagitis; R32 Unspecified urinary incontinence; Z79.890 Hormone replacement therapy; Z79.84 Long term (current) use of oral hypoglycemic drugs; Z79.899 Other long term (current) drug therapy; Z98.1 Arthrodesis status; Z86.711 Personal history of pulmonary embolism; Z87.891 Personal history of nicotine dependence; Z85.828 Personal history of other malignant neoplasm of skin; W18.30XA Fall on same level, unspecified, initial encounter; Y93.01 Activity, walking, marching and hiking; Y92.009 Unspecified place in unspecified non-institutional (private) residence as the place of occurrence of the external cause; Z88.2 Allergy status to sulfonamides; Z88.8 Allergy status to other drugs, medicaments and biological substances; Z91.030 Bee allergy status; Z91.011 Allergy to milk products; Z91.010 Allergy to peanuts; Z88.0 Allergy status to penicillin; Z91.013 Allergy to seafood; Z91.018 Allergy to other foods
CPT/HCPCS: 36415; 49083; 70450; 72072; 72110; 72125; 80048; 80053; 83036; 83735; 84484; 85025; 85610; 93005; 96361; 96374; 96375; 96376; 99285

== ENCOUNTER 2023-04-10 08:55 | Day surgery (SDC) | payer MEDICARE ==
[2023-04-10 10:02] LABS: Platelet Count 291 k/uL (150-450)
[2023-04-10 10:06] LABS: INR 1.3 (<1.2); Prothrombin Time 12.9 sec (9.0-12.0)
[2023-04-10 10:12] LABS: African American GFR (CKD) 72 (>60 ml/min/1.73 sqM); Glucose 110 mg/dL (74-99); Non-African American GFR(CKD) 63 (>60 ml/min/1.73 sqM)
[2023-04-10] MEDS: ALBUMIN HUMAN 25% 50 ML in EMPTY BAG 1 BAG IVPB SCH ×3 (11:18→11:19)
[2023-04-10 15:25] VITALS: BP 128/80; PULSE 90; RESP 19; TEMP 98.4
--- NOTE | 2023-04-10 18:04 | US ---
EXAMINATION TYPE: US paracentesis abd w/image DATE OF EXAM: 04/10/2023 CLINICAL HISTORY: 82-year-old female R1 8.8, other ascites. Weekly paracentesis. Patient with back f racture last week and paracentesis earlier this week. The procedure was discussed with the patient. The risks, complications, benefits, and alternatives we re discussed and any questions were answered. Informed consent was obtained. The patient was placed s upine on the ultrasound table and prepped and draped in the usual sterile fashion. All elements of maximal barrier technique were utilized. Under ultrasound guidance, access into the right lower quadrant was obtained, via the one-step 5 [place] catheter system and direct ultrasound gu idance. Approximately 3.6 liters of straw-colored fluid was removed. We were unable to manipulate the patient or fluid for further aspiration due to patient's recent back fracture. The catheter was removed, hemostasis obtained, and a dressing placed. The patient was stable throughout the procedure and remained stable upon discharge from Department of Radiology. IMPRESSION: Successful therapeutic paracentesis under ultrasound guidance. Only 3.6 L of fluid could be removed. We do note that the patient had paracentesis earlier this week. Unable to manipulate the patient to a ttempt further fluid aspiration due to recent back fracture.
== END 2023-04-10 11:59 | disposition home or self-care (01) ==
LOC: RADPROMAIN 08:55
PROVIDERS: ATTEND Internal Medicine Gastroenterology
DX: R18.8 Other ascites (principal)
CPT/HCPCS: 82565; 82947; 85049; 85610; 36415; 49083; P9047; J1642

== ENCOUNTER 2023-04-24 08:48 | Day surgery (SDC) | payer MEDICARE ==
[2023-04-24 09:27] VITALS: TEMP 98.2
[2023-04-24 09:29] LABS: Mean Platelet Volume 8.3; Platelet Count 264 k/uL (150-450)
[2023-04-24 09:45] LABS: African American GFR (CKD) 53 (>60 ml/min/1.73 sqM); Glucose 148 mg/dL (74-99); Non-African American GFR(CKD) 46 (>60 ml/min/1.73 sqM)
[2023-04-24 10:09] LABS: INR 1.3 (<1.2); Prothrombin Time 13.5 sec (9.0-12.0)
[2023-04-24] MEDS: ALBUMIN HUMAN 25% 50 ML in EMPTY BAG 1 BAG IVPB SCH ×3 (10:51→11:01)
[2023-04-24 11:09] VITALS: BP 117/73; PULSE 68; RESP 16
--- NOTE | 2023-04-24 13:10 | US ---
Ultrasound-guided paracentesis. DATE OF EXAM: 04/24/2023 CLINICAL HISTORY: Ascites The procedure was discussed with the patient. The risks, complications, benefits, and alternatives we re discussed and any questions were answered. Informed consent was obtained. The patient was placed s upine on the ultrasound table and prepped and draped in the usual sterile fashion. All elements of maximal barrier technique were utilized. Under ultrasound guidance, access into the right lower quadrant was obtained, via the paracentesis catheter system and direct ultrasound guidanc e. Approximately 4 liters of straw-colored fluid was removed. The patient was stable throughout the proc edure and remained stable upon discharge from Department of Radiology. IMPRESSION: Successful paracentesis under ultrasound guidance.
== END 2023-04-24 11:37 | disposition home or self-care (01) ==
LOC: RADPROMAIN 08:48
PROVIDERS: ATTEND Internal Medicine Gastroenterology
DX: R18.8 Other ascites (principal)
CPT/HCPCS: 82565; 82947; 85049; 85610; 36415; 49083; P9047; J1642

== ENCOUNTER 2023-05-01 08:49 | Day surgery (SDC) | payer MEDICARE ==
[2023-05-01] MEDS ORDERED: HYDROcodone/APAP 5-325MG 1 EACH TAB PO STA (09:41)
[2023-05-01] MEDS: ALBUMIN HUMAN 25% 50 ML in EMPTY BAG 1 BAG IVPB SCH ×2 (10:30→11:05)
[2023-05-01 10:34] VITALS: RESP 18; TEMP 97.6
--- NOTE | 2023-05-01 11:05 | US ---
Ultrasound-guided paracentesis. DATE OF EXAM: 05/01/2023 CLINICAL HISTORY: Ascites The procedure was discussed with the patient. The risks, complications, benefits, and alternatives we re discussed and any questions were answered. Informed consent was obtained. The patient was placed s upine on the ultrasound table and prepped and draped in the usual sterile fashion. All elements of maximal barrier technique were utilized. Under ultrasound guidance, access into the right lower quadrant was obtained, via the paracentesis catheter system and direct ultrasound guidanc e. Approximately 4 liters of straw-colored fluid was removed. The patient was stable throughout the proc edure and remained stable upon discharge from Department of Radiology. IMPRESSION: Successful paracentesis under ultrasound guidance.
[2023-05-01 11:23] VITALS: BP 112/66; PULSE 76
== END 2023-05-01 12:15 | disposition home or self-care (01) ==
LOC: RADPROMAIN 08:49
PROVIDERS: ATTEND Internal Medicine Gastroenterology
DX: R18.8 Other ascites (principal)
CPT/HCPCS: 49083; P9047; J1642

== ENCOUNTER 2023-05-14 18:01 | Inpatient (IN) | payer MEDICARE ==
[2023-05-14] MEDS ORDERED: NALOXONE 0.4 MG/ML 1 ML VIAL IV PRN (19:43)
[2023-05-14] MEDS ORDERED: MORPHINE SULFATE 4 MG/ML SYRINGE IV STA (19:43)
[2023-05-14] MEDS ORDERED: ONDANSETRON 4 MG/2 ML VIAL IVP PRN (19:43)
[2023-05-14] MEDS ORDERED: ONDANSETRON 4 MG/2 ML VIAL IVP STA (19:43)
--- NOTE | 2023-05-14 19:50 | ED ---
Nausea/Vomiting/Diarrhea HPI - General Chief complaint: Nausea/Vomiting/Diarrhea Stated complaint: diarrhea Time Seen by Provider: 05/14/23 19:24 Source: patient, RN notes reviewed, old records reviewed Mode of arrival: wheelchair Limitations: no limitations - History of Present Illness Initial comments: This is a 82-year-old female to the emergency department for evaluation today. Patient presents today for evaluation of significant abdominal distention with history of alcoholic cirrhosis. Patient has significant abdominal swelling shortness of breath and per the son who is at bedside altered mental status. Patient herself complains of abdominal pain and shortness of breath MD complaint: abdominal pain, other (Shortness of breath) -: week(s) Associated Abdominal Pain: Yes Location: diffuse Radiation: none Severity: severe Severity scale (1-10): 10 Quality: cramping, stabbing, aching Consistency: constant Improves with: none Worsens with: none Associated Symptoms: shortness of breath, weakness - Related Data Home Medications Medication Instructions Recorded Confirmed Montelukast [Singulair] 10 mg PO HS@209903/23/14 05/22/23 EPINEPHrine (Auto Inject) [Epipen] 0.3 mg IM ONCE PRN 04/13/20 05/22/23 Escitalopram [Lexapro] 5 mg PO DAILY 10/12/20 05/22/23 sitaGLIPtin [Januvia] 50 mg PO DAILY@0600 12/21/20 05/22/23 Thiamine [Vitamin B-1] 100 mg PO HS@209901/22/21 05/22/23 Ferrous Sulfate [Iron (65 MG 325 mg PO HS@2100 03/22/21 05/22/23 Elemental)] allopurinoL [Zyloprim] 100 mg PO HS 01/31/22 05/22/23 Bismuth Subsalicylate 262 - 524 mg PO Q1H PRN MDD 120 mls 04/03/23 05/22/23 [Pepto-Bismol] Ergocalciferol (Vitamin D2) 1,250 mcg PO WESA 04/03/23 05/22/23 [Drisdol (50,000 Iu)] Fluticasone Nasal Gobler [Flonase 1 spray EA NOSTRIL BID PRN 04/03/23 05/22/23 Nasal Gobler] Escitalopram [Lexapro] 20 mg PO DAILY 05/14/23 05/22/23 Midodrine HCl [ProAmantine] 2.5 mg PO TID 05/14/23 05/22/23 hydrOXYzine HCL [Atarax] 25 mg PO DAILY PRN 05/14/23 05/22/23 hydrOXYzine HCL [Atarax] 25 mg PO HS 05/14/23 05/22/23 LORazepam 0.5 mg PO Q8H PRN 05/20/23 05/22/23 Morphine Sulfate [Morphine Sulfate 10 mg PO Q8H PRN 05/20/23 05/22/23 Oral Soln Concentrate] Ondansetron [Zofran] 4 mg PO Q12HR PRN 05/20/23 05/22/23 Previous Rx's Medication Instructions Recorded Folic Acid 1 mg PO DAILY@1200 30 Days #30 tab 09/03/20 HYDROcodone/APAP 10-325MG [[place] 1 tab PO QID PRN #12 tab 04/07/23 10-325] Furosemide [Lasix] 40 mg PO BID #0 05/19/23 Levothyroxine Sodium [Synthroid] 50 mcg PO DAILY@0630 #30 tab 05/19/23 Spironolactone [Aldactone] 25 mg PO AC-BID #60 tablet 05/19/23 Allergies Allergy/AdvReac Type Severity Reaction Status Date / Time venom-wasp [Wasp Venom] Allergy Severe Swelling Verified 05/22/23 09:23 adhesive Allergy Unknown Rash/Hives Verified 05/22/23 09:23 amoxicillin [Amoxicillin] Allergy Unknown Rash/Hives, Verified 05/22/23 09:23 itching fenofibrate nanocrystallized Allergy Unknown Rash/Hives,joint Verified 05/22/23 09:23 [From Tricor] pain fenofibrate,micronized Allergy Unknown Rash/Hives, Verified 05/22/23 09:23 [From Tricor] joint pain hydrochlorothiazide Allergy Unknown Rash/Hives Verified 05/22/23 09:23 Neuromuscular Blockers, Allergy Unknown Rash/Hives Verified 05/22/23 09:23 Steroidal [Steroidal Neuromuscular Blockers] Penicillins Allergy Unknown Rash/Hives, Verified 05/22/23 09:23 red skin shellfish derived Allergy Unknown SKIN RED Verified 05/22/23 09:23 AND WARM simvastatin [From Zocor] Allergy Unknown Rash/Hives, Verified 05/22/23 09:23 joint pain Wohuykk-LGL-JvC Reductase Allergy Unknown Rash/Hives, Verified 05/22/23 09:23 Inhibitor joint pain [Junecsz-Hfj-Cwx Reductase Inhibitor] venom-honey bee Allergy Unknown Swelling Verified 05/22/23 09:23 [bee venom (honey bee)] cat dander Allergy Rash/Hives Verified 05/22/23 09:23 ciprofloxacin HCl Allergy Unknown Verified 05/22/23 09:23 [From Cipro] sulfamethoxazole Allergy Rash/Hives Verified 05/22/23 09:23 talc Allergy Rash/Hives Verified 05/22/23 09:23 walnut Allergy Rash/Hives Verified 05/22/23 09:23 clarithromycin AdvReac warm and Verified 05/22/23 09:23 flushed lactose AdvReac Abdominal Verified 05/22/23 09:23 Pain minocycline AdvReac warm and Verified 05/22/23 09:23 flushed peanut [Peanut Butter] AdvReac Nausea Verified 05/22/23 09:23 prednisone AdvReac Nausea Verified 05/22/23 09:23 soy AdvReac Nausea & Verified 05/22/23 09:23 Vomiting Review of Systems ROS Statement: Those systems with pertinent positive or pertinent negative responses have been documented in the HPI. ROS Other: All systems not noted in ROS Statement are negative. Past Medical History Past Medical History: Atrial Fibrillation, Asthma, Cancer, Diabetes Mellitus, Fibromyalgia, GERD/Reflux, Hyperlipidemia, Hypertension, Liver Disease, Osteoarthritis (OA), Pulmonary Embolus (PE), Thyroid Disorder Additional Past Medical History / Comment(s): Pt recently admitted to [facility] on 08/14/20 with decompensated liver cirrhosis 2ndary to ALFONSO with ascities/acute diarrhea and anemia with transfusion. Other hx: Nonalcoholic fatty liver, liver cirrhosis, ascities with multiple paracentesis and has albumin infusions, esophageal varicies with banding, NIDDM type II, neuropathy bilateral legs/feet, spinal stenosis/low back pain with R side radiculopathy and lately has had pain down L leg, recent bilateral lower leg edema, PE after leg fracture, overactive bladder, hypothyroid, sinus problems, vertigo, bilateral macular degeneration,skin cancer, cellulits to left lower extemity on antibiotics 11/13/20 History of Any Multi-Drug Resistant Organisms: None Reported Past Surgical History: Adenoidectomy, Appendectomy, Back Surgery, Breast Surgery, Hysterectomy, Joint Replacement, Orthopedic Surgery, Tonsillectomy Additional Past Surgical History / Comment(s): Multiple large volume paracentesis procedures, lower back and cervical fusions, bilateral total knees, bilateral total shoulders, bilateral carpal tunnel releases, bilateral hand trigger finger releases, R foot bone spur removed, R leg fracture/hardware removed, R breast fatty tumor removed, EGD with esophageal varicies banded, colonoscopy, skin cancer removed, bilateral cataracts removed., right chest mediport Past Anesthesia/Blood Transfusion Reactions: Motion Sickness, Postoperative Nausea & Vomiting (PONV) Additional Past Anesthesia/Blood Transfusion Reaction / Comment(s): previous blood transfusions at [facility] Past Psychological History: No Psychological Hx Reported Smoking Status: Former smoker Past Alcohol Use History: None Reported Past Drug Use History: None Reported - Past Family History Mother History Unknown: Yes Family Medical History: No Reported History Additional Family Medical History / Comment(s): Mother was healthy and lived to be 87yrs old. Father History Unknown: Yes Additional Family Medical History / Comment(s): Father in a MVA Daughter(s) Family Medical History: Cancer General Exam Limitations: no limitations General appearance: alert, in no apparent distress Head exam: Present: atraumatic, normocephalic, normal inspection Eye exam: Present: normal appearance, PERRL, EOMI. Absent: scleral icterus, conjunctival injection, periorbital swelling ENT exam: Present: normal exam, mucous membranes moist Neck exam: Present: normal inspection. Absent: tenderness, meningismus, lymphadenopathy Respiratory exam: Present: normal lung sounds bilaterally. Absent: respiratory distress, wheezes, rales, rhonchi, stridor Cardiovascular Exam: Present: regular rate, normal rhythm, normal heart sounds. Absent: systolic murmur, diastolic murmur, rubs, gallop, clicks GI/Abdominal exam: Present: soft, normal bowel sounds. Absent: distended, tenderness, guarding, rebound, rigid Extremities exam: Present: normal inspection, full ROM, normal capillary refill. Absent: tenderness, pedal edema, joint swelling, calf tenderness Back exam: Present: normal inspection Neurological exam: Present: alert, oriented X3, CN II-XII intact Psychiatric exam: Present: normal affect, normal mood Skin exam: Present: warm, dry, intact, normal color. Absent: rash Course Vital Signs 05/14/23 05/14/23 05/15/23 18:19 22:14 00:00 Temperature 98 F 97.8 F Pulse Rate 76 75 76 Pulse Rate [ Pulse Oximetery ] Respiratory 16 16 16 Rate Blood Pressure 133/83 109/64 130/84 Blood Pressure [Right Arm] O2 Sat by Pulse 99 94 L 97 Oximetry 05/15/23 05/15/23 05/15/23 01:00 02:00 04:13 Temperature Pulse Rate 73 79 85 Pulse Rate [ Pulse Oximetery ] Respiratory 18 20 18 Rate Blood Pressure 133/86 129/66 130/75 Blood Pressure [Right Arm] O2 Sat by Pulse 99 97 94 L Oximetry 05/15/23 05/15/23 05/15/23 08:37 10:35 10:51 Temperature Pulse Rate 80 Pulse Rate [ 68 66 Pulse Oximetery ] Respiratory 18 16 16 Rate Blood Pressure 120/77 Blood Pressure 140/75 128/60 [Right Arm] O2 Sat by Pulse 94 L 99 99 Oximetry 05/15/23 12:41 Temperature Pulse Rate Pulse Rate [ Pulse Oximetery ] Respiratory Rate Blood Pressure 121/81 Blood Pressure [Right Arm] O2 Sat by Pulse Oximetry - Reevaluation(s) Reevaluation #1: 05/14/23 19:48 Medical records reviewed Reevaluation #2: 05/14/23 19:48 Patient symptoms unchanged Reevaluation #3: 05/14/23 19:48 Patient informed results questions answered Reevaluation #4: 05/14/23 19:48 Was pt. sent in by a medical professional or institution (, PA, ELECT[employer]ILS SUPERVISOR, urgent care, hospital, or prison...) When possible be specific @ -no Did you speak to anyone other than the patient for history (EMS, parent, family, police, friend...)? What history was obtained from this source @ -no Did you review nursing and triage notes (agree or disagree)? Why? @ -agree Are old charts reviewed (outside hosp., previous admission, EMS record, old EKG, old radiological studies, urgent care reports/EKG's, prison records)? Report findings @ -yes Differential Diagnosis (chest pain, altered mental status, abdominal pain women, abdominal pain men, vaginal bleeding, weakness, fever, dyspnea, syncope, headache, dizziness, GI bleed, back pain, seizure, CVA, palpatations, mental health, musculoskeletal)? @ -prior EKG interpreted by me (3pts min.). @ -no X-rays interpreted by me (1pt min.). @ -yes CT interpreted by me (1pt min.). @ -no U/S interpreted by me (1pt. min.). @ -no What testing was considered but not performed or refused? (CT, X-rays, U/S, labs )? Why? @ -none What meds were considered but not given or refused? Why? @ -none Did you discuss the management of the patient with other professionals (professionals i.e. Dr., PA, ELECTRONIC [employer]ILS SUPERVISOR, lab, RT, psych nurse, social media marketer, pony worker, teacher, branch officer, welfare case worker)? Give summary @ -no Was smoking cessation discussed for >3mins.? @ -no Was critical care preformed (if so, how long)? @ -no Were there social determinants of health that impacted care today? How? (Homelessness, low income, unemployed, alcoholism, drug addiction, transportation, low edu. Level, literacy, decrease access to med. care, senior care, rehab)? @ -none Was there de-escalation of care discussed even if they declined (Discuss DNR or withdrawal of care, Hospice)? DNR status @ -no What co-morbidities impacted this encounter? (DM, HTN, Smoking, COPD, CAD, Cancer, CVA, ARF, Chemo, Hep., AIDS, mental health diagnosis, sleep apnea, morbid obesity)? @ -none Was patient admitted / discharged? Hospital course, mention meds given and route, prescriptions, significant lab abnormalities, going to OR and other pertinent info. @ - 82-year-old female will be admitted for therapeutic paracentesis, Symptom control. Admitted Undiagnosed new problem with uncertain prognosis? @ -no Drug Therapy requiring intensive monitoring for toxicity (Heparin, Nitro, Insulin, Cardizem)? @ -no Were any procedures done? @ -no Diagnosis/symptom? @ -Significant ascites and pain Acute, or Chronic, or Acute on Chronic? @ -Acute Uncomplicated (without systemic symptoms) or Complicated (systemic symptoms)? @ -Complicated Side effects of treatment? @ -no Exacerbation, Progression, or Severe Exacerbation? @ -exacerbation Poses a threat to life or bodily function? How? (Chest pain, [place], [place], pneumonia, PE, COPD, DKA, ARF, appy, cholecystitis, CVA, Diverticulitis, Homicidal, Suicidal, threat to staff... and all critical care pts) @ -yes with severe comorbidities and extremity of age Reevaluation #5: 05/14/23 19:48 Differential Abdominal Pain Women: Appendicitis, Cholecystitis, diverticulosis, ischemic bowel, pancreatitis, hepatitis, UTI, gastroenteritis, AAA, incarcerated hernia, bowel obstruction, constipation, inflammatory bowel, hepatitis, peptic ulcer disease, splenic infar ction, perforated viscus, vulvitis, ovarian torsion, PID, kidney stone, placenta abruption, this is not meant to be an all-inclusive list - Consultations Consultation #1: Spoke with sound who agrees to admit this patient Medical Decision Making - Medical Decision Making 82-year-old female will be admitted for therapeutic paracentesis, Symptom control. - Lab Data Result diagrams: 05/17/23 05:59 05/19/23 05:26 Lab Results 05/14/23 05/14/23 05/14/23 Range/Units 22:00 22:00 22:00 WBC 6.4 (3.8-10.6) k/uL RBC 3.84 (3.80-5.40) m/uL Hgb 10.9 L (11.4-16.0) gm/dL Hct 33.3 L (34.0-46.0) % MCV 86.8 (80.0-100.0) fL MCH 28.4 (25.0-35.0) pg MCHC 32.7 (31.0-37.0) g/dL RDW 16.4 H (11.5-15.5) % Plt Count 275 (150-450) k/uL MPV 7.7 Neutrophils % 83 % Lymphocytes % 6 % Monocytes % 7 % Eosinophils % 2 % Basophils % 0 % Neutrophils # 5.3 (1.3-7.7) k/uL Lymphocytes # 0.4 L (1.0-4.8) k/uL Monocytes # 0.4 (0-1.0) k/uL Eosinophils # 0.1 (0-0.7) k/uL Basophils # 0.0 (0-0.2) k/uL Anisocytosis Slight PT 13.9 H (10.0-12.5) sec INR 1.3 H (<1.2) APTT 41.2 H (22.0-30.0) sec Sodium 125 L (137-145) mmol/L Potassium 3.9 (3.5-5.1) mmol/L Chloride 94 L (98-107) mmol/L Carbon Dioxide 22 (22-30) mmol/L Anion Gap 9 mmol/L BUN 23 H (7-17) mg/dL Creatinine 0.85 (0.52-1.04) mg/dL Est GFR (CKD-EPI)AfAm 75 (>60 ml/min/1.73 sqM) Est GFR (CKD-EPI)NonAf 65 (>60 ml/min/1.73 sqM) Glucose 106 H (74-99) mg/dL POC Glucose (mg/dL) (70-110) mg/dL POC Glu Director Report ID Calcium 8.2 L (8.4-10.2) mg/dL Phosphorus 3.6 (2.5-4.5) mg/dL Magnesium 2.1 (1.6-2.3) mg/dL Total Bilirubin 0.7 (0.2-1.3) mg/dL AST 35 (14-36) U/L ALT 18 (4-34) U/L Alkaline Phosphatase 158 H (38-126) U/L Ammonia (<30) umol/L Troponin I (0.000-0.034) ng/mL NT-Pro-B Natriuret Pep 1670 pg/mL Total Protein 5.0 L (6.3-8.2) g/dL Albumin 2.9 L (3.5-5.0) g/dL Globulin g/dL Albumin/Globulin Ratio 05/14/23 05/14/23 05/15/23 Range/Units 22:00 22:00 07:59 WBC (3.8-10.6) k/uL RBC (3.80-5.40) m/uL Hgb (11.4-16.0) gm/dL Hct (34.0-46.0) % MCV (80.0-100.0) fL MCH (25.0-35.0) pg MCHC (31.0-37.0) g/dL RDW (11.5-15.5) % Plt Count (150-450) k/uL MPV Neutrophils % % Lymphocytes % % Monocytes % % Eosinophils % % Basophils % % Neutrophils # (1.3-7.7) k/uL Lymphocytes # (1.0-4.8) k/uL Monocytes # (0-1.0) k/uL Eosinophils # (0-0.7) k/uL Basophils # (0-0.2) k/uL Anisocytosis PT (10.0-12.5) sec INR (<1.2) APTT (22.0-30.0) sec Sodium (137-145) mmol/L Potassium (3.5-5.1) mmol/L Chloride (98-107) mmol/L Carbon Dioxide (22-30) mmol/L Anion Gap mmol/L BUN (7-17) mg/dL Creatinine (0.52-1.04) mg/dL Est GFR (CKD-EPI)AfAm (>60 ml/min/1.73 sqM) Est GFR (CKD-EPI)NonAf (>60 ml/min/1.73 sqM) Glucose (74-99) mg/dL POC Glucose (mg/dL) 116 H (70-110) mg/dL POC Glu Director Report ID October Calcium (8.4-10.2) mg/dL Phosphorus (2.5-4.5) mg/dL Magnesium (1.6-2.3) mg/dL Total Bilirubin (0.2-1.3) mg/dL AST (14-36) U/L ALT (4-34) U/L Alkaline Phosphatase (38-126) U/L Ammonia <9 (<30) umol/L Troponin I 0.014 (0.000-0.034) ng/mL NT-Pro-B Natriuret Pep pg/mL Total Protein (6.3-8.2) g/dL Albumin (3.5-5.0) g/dL Globulin g/dL Albumin/Globulin Ratio 05/15/23 05/15/23 05/15/23 Range/Units 11:40 11:40 11:40 WBC 5.0 (3.8-10.6) k/uL RBC 3.88 (3.80-5.40) m/uL Hgb 11.0 L (11.4-16.0) gm/dL Hct 34.1 (34.0-46.0) % MCV 87.9 (80.0-100.0) fL MCH 28.3 (25.0-35.0) pg MCHC 32.2 (31.0-37.0) g/dL RDW 16.3 H (11.5-15.5) % Plt Count 251 (150-450) k/uL MPV 7.5 Neutrophils % % Lymphocytes % % Monocytes % % Eosinophils % % Basophils % % Neutrophils # (1.3-7.7) k/uL Lymphocytes # (1.0-4.8) k/uL Monocytes # (0-1.0) k/uL Eosinophils # (0-0.7) k/uL Basophils # (0-0.2) k/uL Anisocytosis Slight PT 12.2 (10.0-12.5) sec INR 1.1 (<1.2) APTT (22.0-30.0) sec Sodium 126 L (137-145) mmol/L Potassium 4.3 (3.5-5.1) mmol/L Chloride 98 (98-107) mmol/L Carbon Dioxide 20 L (22-30) mmol/L Anion Gap 8 mmol/L BUN 22 H (7-17) mg/dL Creatinine 0.96 (0.52-1.04) mg/dL Est GFR (CKD-EPI)AfAm 64 (>60 ml/min/1.73 sqM) Est GFR (CKD-EPI)NonAf 56 (>60 ml/min/1.73 sqM) Glucose 86 (74-99) mg/dL POC Glucose (mg/dL) (70-110) mg/dL POC Glu Director Report ID Calcium 8.3 L (8.4-10.2) mg/dL Phosphorus (2.5-4.5) mg/dL Magnesium (1.6-2.3) mg/dL Total Bilirubin 0.8 (0.2-1.3) mg/dL AST 34 (14-36) U/L ALT 16 (4-34) U/L Alkaline Phosphatase 156 H (38-126) U/L Ammonia (<30) umol/L Troponin I (0.000-0.034) ng/mL NT-Pro-B Natriuret Pep pg/mL Total Protein 4.8 L (6.3-8.2) g/dL Albumin 2.7 L (3.5-5.0) g/dL Globulin 2.1 g/dL Albumin/Globulin Ratio 1.3 05/15/23 05/15/23 05/15/23 Range/Units 12:31 17:21 20:34 WBC (3.8-10.6) k/uL RBC (3.80-5.40) m/uL Hgb (11.4-16.0) gm/dL Hct (34.0-46.0) % MCV (80.0-100.0) fL MCH (25.0-35.0) pg MCHC (31.0-37.0) g/dL RDW (11.5-15.5) % Plt Count (150-450) k/uL MPV Neutrophils % % Lymphocytes % % Monocytes % % Eosinophils % % Basophils % % Neutrophils # (1.3-7.7) k/uL Lymphocytes # (1.0-4.8) k/uL Monocytes # (0-1.0) k/uL Eosinophils # (0-0.7) k/uL Basophils # (0-0.2) k/uL Anisocytosis PT (10.0-12.5) sec INR (<1.2) APTT (22.0-30.0) sec Sodium (137-145) mmol/L Potassium (3.5-5.1) mmol/L Chloride (98-107) mmol/L Carbon Dioxide (22-30) mmol/L Anion Gap mmol/L BUN (7-17) mg/dL Creatinine (0.52-1.04) mg/dL Est GFR (CKD-EPI)AfAm (>60 ml/min/1.73 sqM) Est GFR (CKD-EPI)NonAf (>60 ml/min/1.73 sqM) Glucose (74-99) mg/dL POC Glucose (mg/dL) 94 110 127 H (70-110) mg/dL POC Glu Director Report ID AndresJake, Shanti Thomson Calcium (8.4-10.2) mg/dL Phosphorus (2.5-4.5) mg/dL Magnesium (1.6-2.3) mg/dL Total Bilirubin (0.2-1.3) mg/dL AST (14-36) U/L ALT (4-34) U/L Alkaline Phosphatase (38-126) U/L Ammonia (<30) umol/L Troponin I (0.000-0.034) ng/mL NT-Pro-B Natriuret Pep pg/mL Total Protein (6.3-8.2) g/dL Albumin (3.5-5.0) g/dL Globulin g/dL Albumin/Globulin Ratio 05/16/23 05/16/23 05/16/23 Range/Units 06:07 06:07 08:13 WBC 3.6 L (3.8-10.6) k/uL RBC 3.58 L (3.80-5.40) m/uL Hgb 10.3 L (11.4-16.0) gm/dL Hct 31.9 L (34.0-46.0) % MCV 88.9 (80.0-100.0) fL MCH 28.7 (25.0-35.0) pg MCHC 32.3 (31.0-37.0) g/dL RDW 16.2 H (11.5-15.5) % Plt Count 199 (150-450) k/uL MPV 8.1 Neutrophils % % Lymphocytes % % Monocytes % % Eosinophils % % Basophils % % Neutrophils # (1.3-7.7) k/uL Lymphocytes # (1.0-4.8) k/uL Monocytes # (0-1.0) k/uL Eosinophils # (0-0.7) k/uL Basophils # (0-0.2) k/uL Anisocytosis Slight PT (10.0-12.5) sec INR (<1.2) APTT (22.0-30.0) sec Sodium 124 L (137-145) mmol/L Potassium 3.9 (3.5-5.1) mmol/L Chloride 95 L (98-107) mmol/L Carbon Dioxide 21 L (22-30) mmol/L Anion Gap 8 mmol/L BUN 21 H (7-17) mg/dL Creatinine 0.88 (0.52-1.04) mg/dL Est GFR (CKD-EPI)AfAm 72 (>60 ml/min/1.73 sqM) Est GFR (CKD-EPI)NonAf 62 (>60 ml/min/1.73 sqM) Glucose 77 (74-99) mg/dL POC Glucose (mg/dL) 88 (70-110) mg/dL POC Glu Director Report ID Patricia Kelsey Calcium 8.1 L (8.4-10.2) mg/dL Phosphorus (2.5-4.5) mg/dL Magnesium 1.9 (1.6-2.3) mg/dL Total Bilirubin 0.8 (0.2-1.3) mg/dL AST 32 (14-36) U/L ALT 13 (4-34) U/L Alkaline Phosphatase 114 (38-126) U/L Ammonia (<30) umol/L Troponin I (0.000-0.034) ng/mL NT-Pro-B Natriuret Pep pg/mL Total Protein 4.9 L (6.3-8.2) g/dL Albumin 2.9 L (3.5-5.0) g/dL Globulin 2.0 g/dL Albumin/Globulin Ratio 1.5 05/16/23 Range/Units 12:28 WBC (3.8-10.6) k/uL RBC (3.80-5.40) m/uL Hgb (11.4-16.0) gm/dL Hct (34.0-46.0) % MCV (80.0-100.0) fL MCH (25.0-35.0) pg MCHC (31.0-37.0) g/dL RDW (11.5-15.5) % Plt Count (150-450) k/uL MPV Neutrophils % % Lymphocytes % % Monocytes % % Eosinophils % % Basophils % % Neutrophils # (1.3-7.7) k/uL Lymphocytes # (1.0-4.8) k/uL Monocytes # (0-1.0) k/uL Eosinophils # (0-0.7) k/uL Basophils # (0-0.2) k/uL Anisocytosis PT (10.0-12.5) sec INR (<1.2) APTT (22.0-30.0) sec Sodium (137-145) mmol/L Potassium (3.5-5.1) mmol/L Chloride (98-107) mmol/L Carbon Dioxide (22-30) mmol/L Anion Gap mmol/L BUN (7-17) mg/dL Creatinine (0.52-1.04) mg/dL Est GFR (CKD-EPI)AfAm (>60 ml/min/1.73 sqM) Est GFR (CKD-EPI)NonAf (>60 ml/min/1.73 sqM) Glucose (74-99) mg/dL POC Glucose (mg/dL) 104 (70-110) mg/dL POC Glu Director Report ID Patricia Kelsey Calcium (8.4-10.2) mg/dL Phosphorus (2.5-4.5) mg/dL Magnesium (1.6-2.3) mg/dL Total Bilirubin (0.2-1.3) mg/dL AST (14-36) U/L ALT (4-34) U/L Alkaline Phosphatase (38-126) U/L Ammonia (<30) umol/L Troponin I (0.000-0.034) ng/mL NT-Pro-B Natriuret Pep pg/mL Total Protein (6.3-8.2) g/dL Albumin (3.5-5.0) g/dL Globulin g/dL Albumin/Globulin Ratio - EKG Data -: EKG Interpreted by Me (EKG is A. fib 72 QRS 96 QTc 409) - Radiology Data Radiology results: report reviewed (Chest x-ray is negative for acute disease ), image reviewed Disposition Clinical Impression: Ascites, Abdominal distention, Liver cirrhosis secondary to ALFONSO (nonalcoholic steatohepatitis), Generalized weakness Disposition: ADMITTED IP TO THIS HOSP Condition: Stable Is patient prescribed a controlled substance at d/c from ED?: No Time of Disposition: 19:45
--- NOTE | 2023-05-14 21:31 | XR ---
EXAMINATION: XR chest 1V portable DATE AND TIME: 05/14/2023 8:08 PM CLINICAL INDICATION: PHH; chf TECHNIQUE: AP upright portable COMPARISON: 03/15/2022 FINDINGS: Right IJ portacatheter tip superimposed over the mid SVC. EKG leads. The lungs are clear as seen. The pleural spaces are negative. The cardiac silhouette is not enlarged. The remainder of the mediastinal silhouette is unremarkable. The skeletal structures and soft tissues are negative for acute findings. IMPRESSION: No definite acute radiographic process.
[2023-05-14] MEDS: MORPHINE SULFATE 4 MG/ML SYRINGE IV PRN ×2 (22:05→23:44)
[2023-05-14 22:25] LABS: Anisocytosis Slight; Basophils % (A) 0 %; Eosinophils # (A) 0.1 k/uL (0-0.7); Eosinophils % (A) 2 %; HCT 33.3 % (34.0-46.0); HGB 10.9 gm/dL (11.4-16.0); Lymphocytes # (A) 0.4 k/uL (1.0-4.8); Lymphocytes % (A) 6 %; MCH 28.4 pg (25.0-35.0); MCHC 32.7 g/dL (31.0-37.0); MCV 86.8 fL (80.0-100.0); Mean Platelet Volume 7.7; Monocytes # (A) 0.4 k/uL (0-1.0); Monocytes % (A) 7 %; Neutrophils # (A) 5.3 k/uL (1.3-7.7); Neutrophils % (A) 83 %; Platelet Count 275 k/uL (150-450); RBC 3.84 m/uL (3.80-5.40); RDW 16.4 % (11.5-15.5); WBC 6.4 k/uL (3.8-10.6)
[2023-05-14 22:39] LABS: ALT 18 U/L (4-34); AST 35 U/L (14-36); African American GFR (CKD) 75 (>60 ml/min/1.73 sqM); Albumin 2.9 g/dL (3.5-5.0); Alkaline Phosphatase 158 U/L (38-126); Anion Gap 9 mmol/L; Blood Urea Nitrogen 23 mg/dL (7-17); Calcium 8.2 mg/dL (8.4-10.2); Carbon Dioxide 22 mmol/L (22-30); Chloride 94 mmol/L (98-107); Glucose 106 mg/dL (74-99); Magnesium 2.1 mg/dL (1.6-2.3); Non-African American GFR(CKD) 65 (>60 ml/min/1.73 sqM); Phosphorus 3.6 mg/dL (2.5-4.5); Potassium 3.9 mmol/L (3.5-5.1); Sodium 125 mmol/L (137-145); Total Bilirubin 0.7 mg/dL (0.2-1.3)
[2023-05-14 22:46] LABS: NT-Pro-B-Type Natriuretic Pept 1670 pg/mL
[2023-05-14 22:47] LABS: INR 1.3 (<1.2); Partial Thromboplastin Time 41.2 sec (22.0-30.0); Prothrombin Time 13.9 sec (10.0-12.5)
[2023-05-15] MEDS ORDERED: DEXTROSE 50% SYRINGE 50 ML IVP PRN ×2 (00:28)
--- NOTE | 2023-05-15 01:42 | P.HPIM ---
History of Present Illness H&P Date: 05/14/23 Chief Complaint: abd distention 82-year-old female with advanced nonalcoholic steatohepatitis Patient requiring a weekly paracentesis were many months now she is scheduled fo r one tomorrow however her symptoms as progressed fast this week with increased abdominal size and abdominal discomfort resulting in breathing difficulties swelling in bilateral legs patient couldn't take it anymore she claims that she couldn't wait until tomorrow and said to come in today for evaluation last and she was here was due to syncopal episodes and hypotension post paracentesis. Since then less amounts has been taken from her at each session round 45 liters which she has been tolerating well however she doesn't feel like it typically good amount last time for which she is presenting today with difficulty breathing crease abdominal distention and some abdominal discomfort denies any nausea vomiting denies any abdominal pain denies any diarrhea or constipation she denies any bleeding denies any fevers or chills denies any upper respiratory infection symptoms she is was requesting to get paracentesis of her belly to get rid of extra fluid which she believes would help her breathe better Patient denies any alcohol abuse denies any tobacco smoking or illicit drugs Patient currently denies any severe abdominal pain denies any nausea or vomiting dysuria hematuria or GI bleeding. Again she denies fevers or chills review of systems Pertinent positives as noted in HPI. All other systems were reviewed and are negative on exam Constitutional: No acute distress, conversant, cachectic Eyes: Anicteric sclerae, moist conjunctiva, Pupils equal round reactive to light ENMT: NC/AT Oropharynx clear, no erythema, or exudates Neck: Supple, no masses, engorged neck veins No carotid bruits No thyromegaly Lungs: Clear to auscultation Clear to percussion Normal respiratory effort, no accessory muscle use Cardiovascular: Heart regular in rate and rhythm, No murmurs, gallops, or rubs +2 peripheral edema Abdominal: Severely distended Some mild discomfort to deep palpation over the upper part of the belly, no guarding, rebound or rigidity Abdomen moving with respiration Normoactive bowel sounds Cannot assess for organomegaly secondary to distended abdomen from ascites No palpable mass Skin: Chronic dermatitis bilateral legs with oozing wounds Extremities: No digital cyanosis No clubbing Pedal pulses intact and symmetrical Radial pulses intact and symmetrical No calf tenderness Psychiatric: Alert and oriented to person, place and time Appropriate affect fair judgement Neuro Muscles Strength 4/5 in bilateral upper extremities 3/5 over bilateral lower extremities Sensation to light touch grossly present throughout Cranial nerves II-XII grossly intact Lymphatics: no palpable cervical or supraclavicular lymph nodes Assessment and plan 82-year-old female with nonalcoholic steatohepatitis coming in for worsening distended abdomen limiting free breathing I discussed the case with the ED doctor I accepted the admission for recurrent abdominal ascites large in amount requiring regular paracentesis with anticipated length of stay less than 2 midnights Recurrent severe ascites secondary to nonalcoholic steatohepatitis Consult interventional radiologist or paracentesis therapeutic in nature to draw at least 4 L (for symptoms Pain control Continue with morphine IV push when necessary every 4 hours Resume Lasix Diabetes mellitus insulin sliding scale Depression continue with Lexapro Anemia With hemoglobin 10.9 Patient denies any GI bleeding Continue to monitor Renal function showing some moderate hyponatremia Sodium 125 Most likely secondary to fluid overload Continue with IV diuresis 20 mg IV push twice a day BUN 23 creatinine 0.85 potassium 3.9 Full code DVT prophylaxis heparin subcutaneous Past Medical History Past Medical History: Atrial Fibrillation, Asthma, Cancer, Diabetes Mellitus, Fibromyalgia, GERD/Reflux, Hyperlipidemia, Hypertension, Liver Disease, Osteoarthritis (OA), Pulmonary Embolus (PE), Thyroid Disorder Additional Past Medical History / Comment(s): Pt recently admitted to [facility] on 08/14/20 with decompensated liver cirrhosis 2ndary to ALFONSO with ascities/acute diarrhea and anemia with transfusion. Other hx: Nonalcoholic fatty liver, liver cirrhosis, ascities with multiple paracentesis and has albumin infusions, esophageal varicies with banding, NIDDM type II, neuropathy bilateral legs/feet, spinal stenosis/low back pain with R side radiculopathy and lately has had pain down L leg, recent bilateral lower leg edema, PE after leg fracture, overactive bladder, hypothyroid, sinus problems, vertigo, bilateral macular degeneration,skin cancer, cellulits to left lower extemity on antibiotics 11/13/20 History of Any Multi-Drug Resistant Organisms: None Reported Past Surgical History: Adenoidectomy, Appendectomy, Back Surgery, Breast Surgery, Hysterectomy, Joint Replacement, Orthopedic Surgery, Tonsillectomy Additional Past Surgical History / Comment(s): Multiple large volume paracentesis procedures, lower back and cervical fusions, bilateral total knees, bilateral total shoulders, bilateral carpal tunnel releases, bilateral hand trigger finger releases, R foot bone spur removed, R leg fracture/hardware removed, R breast fatty tumor removed, EGD with esophageal varicies banded, colonoscopy, skin cancer removed, bilateral cataracts removed., right chest mediport Past Anesthesia/Blood Transfusion Reactions: Motion Sickness, Postoperative Nausea & Vomiting (PONV) Additional Past Anesthesia/Blood Transfusion Reaction / Comment(s): previous blood transfusions at [facility] Past Psychological History: No Psychological Hx Reported Smoking Status: Former smoker Past Alcohol Use History: None Reported Past Drug Use History: None Reported - Past Family History Mother History Unknown: Yes Family Medical History: No Reported History Additional Family Medical History / Comment(s): Mother was healthy and lived to be 87yrs old. Father History Unknown: Yes Additional Family Medical History / Comment(s): Father in a MVA Daughter(s) Family Medical History: Cancer Medications and Allergies Home Medications Medication Instructions Recorded Confirmed Type Montelukast [Singulair] 10 mg PO HS@209903/23/14 05/14/23 History EPINEPHrine (Auto Inject) [Epipen] 0.3 mg IM ONCE PRN 04/13/20 05/14/23 History Folic Acid 1 mg PO DAILY@1200 30 Days #30 tab 09/03/20 05/14/23 Rx Escitalopram [Lexapro] 5 mg PO DAILY 10/12/20 05/14/23 History sitaGLIPtin [Januvia] 50 mg PO DAILY@0600 12/21/20 05/14/23 History Furosemide [Lasix] 40 mg PO DAILY@0600 01/22/21 05/14/23 History Thiamine [Vitamin B-1] 100 mg PO HS@209901/22/21 05/14/23 History Ferrous Sulfate [Iron (65 MG 325 mg PO HS@209903/22/21 05/14/23 History Elemental)] Furosemide [Lasix] 20 mg PO HS@209901/31/22 05/14/23 History allopurinoL [Zyloprim] 100 mg PO HS 01/31/22 05/14/23 History Bismuth Subsalicylate 262 - 524 mg PO Q1H PRN MDD 120 mls 04/03/23 05/14/23 History [Pepto-Bismol] Ergocalciferol (Vitamin D2) 1,250 mcg PO WESA 04/03/23 05/14/23 History [Drisdol (50,000 Iu)] Fluticasone Nasal [place] [Flonase 1 spray EA NOSTRIL BID PRN 04/03/23 05/14/23 History Nasal [place]] HYDROcodone/APAP 10-325MG [[place] 1 tab PO QID PRN #12 tab 04/07/23 05/14/23 Rx 10-325] Escitalopram [Lexapro] 20 mg PO DAILY 05/14/23 05/14/23 History Midodrine HCl [ProAmantine] 2.5 mg PO TID 05/14/23 05/14/23 History hydrOXYzine HCL [Atarax] 25 mg PO DAILY PRN 05/14/23 05/14/23 History hydrOXYzine HCL [Atarax] 25 mg PO HS 05/14/23 05/14/23 History Allergies Allergy/AdvReac Type Severity Reaction Status Date / Time venom-wasp [Wasp Venom] Allergy Severe Swelling Verified 05/14/23 20:38 adhesive Allergy Unknown Rash/Hives Verified 05/14/23 20:38 amoxicillin [Amoxicillin] Allergy Unknown Rash/Hives, Verified 05/14/23 20:38 itching fenofibrate nanocrystallized Allergy Unknown Rash/Hives,joint Verified 05/14/23 20:38 [From Tricor] pain fenofibrate,micronized Allergy Unknown Rash/Hives, Verified 05/14/23 20:38 [From Tricor] joint pain hydrochlorothiazide Allergy Unknown Rash/Hives Verified 05/14/23 20:38 Neuromuscular Blockers, Allergy Unknown Rash/Hives Verified 05/14/23 20:38 Steroidal [Steroidal Neuromuscular Blockers] Penicillins Allergy Unknown Rash/Hives, Verified 05/14/23 20:38 red skin shellfish derived Allergy Unknown SKIN RED Verified 05/14/23 20:38 AND WARM simvastatin [From Zocor] Allergy Unknown Rash/Hives, Verified 05/14/23 20:38 joint pain Ivovjhv-HAE-MyC Reductase Allergy Unknown Rash/Hives, Verified 05/14/23 20:38 Inhibitor joint pain [Lxauskm-Hys-Mac Reductase Inhibitor] venom-honey bee Allergy Unknown Swelling Verified 05/14/23 20:38 [bee venom (honey bee)] cat dander Allergy Rash/Hives Verified 05/14/23 20:38 ciprofloxacin HCl Allergy Unknown Verified 05/14/23 20:38 [From Cipro] sulfamethoxazole Allergy Rash/Hives Verified 05/14/23 20:38 talc Allergy Rash/Hives Verified 05/14/23 20:38 walnut Allergy Rash/Hives Verified 05/14/23 20:38 clarithromycin AdvReac warm and Verified 05/14/23 20:38 flushed lactose AdvReac Abdominal Verified 05/14/23 20:38 Pain minocycline AdvReac warm and Verified 05/14/23 20:38 flushed peanut [Peanut Butter] AdvReac Nausea Verified 05/14/23 20:38 prednisone AdvReac Nausea Verified 05/14/23 20:38 soy AdvReac Nausea & Verified 05/14/23 20:38 Vomiting Physical Exam Vitals: Vital Signs Temp Pulse Resp BP Pulse Ox 05/14/23 22:14 97.8 F 75 16 109/64 94 L 05/14/23 18:19 98 F 76 16 133/83 99 Intake and Output 05/14/23 05/14/23 05/15/23 14:59 22:59 06:59 Other: Weight 84.368 kg Results CBC & Chem 7: 05/14/23 22:00 05/14/23 22:00 Labs: Abnormal Lab Results - Last 24 Hours (Table) 05/14/23 05/14/23 05/14/23 Range/Units 22:00 22:00 22:00 Hgb 10.9 L (11.4-16.0) gm/dL Hct 33.3 L (34.0-46.0) % RDW 16.4 H (11.5-15.5) % Lymphocytes # 0.4 L (1.0-4.8) k/uL PT 13.9 H (10.0-12.5) sec INR 1.3 H (<1.2) APTT 41.2 H (22.0-30.0) sec Sodium 125 L (137-145) mmol/L Chloride 94 L (98-107) mmol/L BUN 23 H (7-17) mg/dL Glucose 106 H (74-99) mg/dL Calcium 8.2 L (8.4-10.2) mg/dL Alkaline Phosphatase 158 H (38-126) U/L Total Protein 5.0 L (6.3-8.2) g/dL Albumin 2.9 L (3.5-5.0) g/dL
[2023-05-15] MEDS: MORPHINE SULFATE 4 MG/ML SYRINGE IV PRN ×3 (04:36→20:18)
[2023-05-15 08:01] LABS: Glucose,Whole Blood 116 mg/dL (70-110)
[2023-05-15] MEDS: ESCITALOPRAM 20 MG TAB PO SCH (08:29)
[2023-05-15] MEDS: FUROSEMIDE 20 MG TAB PO SCH ×2 (08:29→20:18)
[2023-05-15] MEDS: PANTOPRAZOLE 40 MG/10 ML VIAL IV SCH (08:29)
[2023-05-15] MEDS: ESCITALOPRAM 5 MG TAB PO SCH (08:29)
[2023-05-15] MEDS: MIDODRINE 5 MG TAB PO SCH ×3 (08:29→17:55)
[2023-05-15] MEDS: INSULIN ASPART (NovoLOG) 100 UNIT/ML VIAL SQ SCH ×4 (08:36→20:41)
[2023-05-15] MEDS ORDERED: hydrOXYzine HCL 25 MG TAB PO PRN (09:17)
--- NOTE | 2023-05-15 11:37 | US ---
Ultrasound-guided paracentesis. DATE OF EXAM: 05/15/2023 CLINICAL HISTORY: Ascites The procedure was discussed with the patient. The risks, complications, benefits, and alternatives we re discussed and any questions were answered. Informed consent was obtained. The patient was placed s upine on the ultrasound table and prepped and draped in the usual sterile fashion. All elements of maximal barrier technique were utilized. Under ultrasound guidance, access into the right lower quadrant was obtained, via the paracentesis catheter system and direct ultrasound guidanc e. Approximately 6.1 liters of straw-colored fluid was removed. The patient was stable throughout the pr ocedure and remained stable upon discharge from Department of Radiology. IMPRESSION: Successful paracentesis under ultrasound guidance.
[2023-05-15] MEDS: ALBUMIN HUMAN 25% 50 ML in EMPTY BAG 1 BAG IVPB SCH ×4 (11:57→12:57)
[2023-05-15 12:14] LABS: Anisocytosis Slight; HCT 34.1 % (34.0-46.0); MCH 28.3 pg (25.0-35.0); MCHC 32.2 g/dL (31.0-37.0); MCV 87.9 fL (80.0-100.0); Mean Platelet Volume 7.5; Platelet Count 251 k/uL (150-450); RBC 3.88 m/uL (3.80-5.40); RDW 16.3 % (11.5-15.5)
[2023-05-15 12:27] LABS: ALT 16 U/L (4-34); AST 34 U/L (14-36); African American GFR (CKD) 64 (>60 ml/min/1.73 sqM); Albumin 2.7 g/dL (3.5-5.0); Albumin/Globulin Ratio 1.3; Alkaline Phosphatase 156 U/L (38-126); Anion Gap 8 mmol/L; Blood Urea Nitrogen 22 mg/dL (7-17); Calcium 8.3 mg/dL (8.4-10.2); Carbon Dioxide 20 mmol/L (22-30); Chloride 98 mmol/L (98-107); Globulin 2.1 g/dL; Glucose 86 mg/dL (74-99); Non-African American GFR(CKD) 56 (>60 ml/min/1.73 sqM); Potassium 4.3 mmol/L (3.5-5.1); Sodium 126 mmol/L (137-145); Total Bilirubin 0.8 mg/dL (0.2-1.3); Total Protein 4.8 g/dL (6.3-8.2)
[2023-05-15 12:34] LABS: INR 1.1 (<1.2); Prothrombin Time 12.2 sec (10.0-12.5)
[2023-05-15 12:40] LABS: Glucose,Whole Blood 94 mg/dL (70-110)
[2023-05-15] MEDS: FOLIC ACID 1 MG TAB PO SCH (12:57)
--- NOTE | 2023-05-15 13:45 | P.PN ---
Subjective Progress Note Date: 05/15/23 Hospital course: Patient is a very pleasant 82-year-old female with a past medical history of advanced nonalcoholic steatohepatitis with cirrhosis requiring weekly paracentesis, atrial fibrillation not on anticoagulation, hypertension, hyperlipidemia, fibromyalgia, previous PE, esophageal varices status post banding, type II exf-xsqyyed-ieifwkyty diabetes mellitus with neuropathy of bilateral feet, hypothyroidism,,. She presented to the emergency department 05/14/23 with a chief complaint of worsening abdominal pain and distention, patient was scheduled for paracentesis on 05/15/23 outpatient but stated that she could not wait any longer and presented to the emergency department requesting for paracentesis to be completed because she could not wait any longer. Patient underwent full evaluation in the emergency department. CBC showing mild normocytic anemia with hemoglobin 10.9, normal WBC count of 6.4 and platelet count of 275. Coagulation profile showing elevated PT of 13.9, INR 1.3, and PTT is 41.2. BMP revealing hyponatremia with sodium 125, hypochloremia with chloride of 94, and prerenal azotemia with BUN of 29. Glucose was stable at 106. Liver profile revealed elevated alkaline phosphatase of 158. Troponin was 0.014. Ammonia level less than 9 and proBNP was 1670. EKG completed showing atrial fibrillation at 72 bpm. Chest x-ray negative for acute ca rdiopulmonary process. Patient admitted under our services with consultation to gastroenterology and interventional radiology for ultrasound-guided paracentesis. MELD score 9 upon arrival. Physical exam: Vital signs reviewed and stable. General: Nontoxic, no distress and appears stated age. Derm: Skin warm and dry, jaundiced Head: Atraumatic, normocephalic and symmetric. Eyes: EOMs intact, no lid lag, and scleral icteric Mouth: no lip lesions, mucus membranes moist Cardiovascular: regular rate and rhythm with normal S1S2, no murmur, positive posterior tibial pulses bilaterally, and cap refill < 2 seconds. Lungs: Respirations even, regular, and unlabored on room air. Lungs CTA bila terally, no rhonchi, no rales, no wheezing, and no accessory muscle usage. Abdominal: Taught distended cirrhotic abdomen,, no guarding, no appreciable organomegaly Ext: ROM intact. No gross muscle atrophy, no edema, no contractures Neuro: Speech clear, face symmetrical and CN II-XII grossly intact with no noted focal neuro deficits Psych: Alert and oriented to person, place, time, and situation. Appropriate and pleasant affect. Assessment and Plan of Care: Advanced cirrhosis secondary to ALFONSO Hypochloremic Hyponatremia secondary to fluid volume overload resulting from ascites Chronic persistent Atrial fibrillation History of PE Hypertension Hyperlipidemia -Interventional radiology consulted for ultrasound-guided paracentesis -Gastroenterology consulted as patient follows outpatient with Dr. Maciel -Continue Lasix 40 mg daily and 20 mg nightly. -Continue midodrine 2.5 mg 3 times daily with meals -Continuous symptomatic care and pain management. Uvm-hphfioh-lwcwfnmev diabetes mellitus2 -Hold Januvia and continue glycemic protocol with NovoLog sliding scale. Anemia of chronic disease secondary to ALFONSO -Continue ferrous sulfate 325 mg nightly. Data and imaging reviewed: Vital signs reviewed. Blood pressure 120/77, heart rate 80, respiratory rate 18, and temp 94% on room air. Morning labs reviewed. CBC showing stable normocytic anemia with hemoglobin 11.0. BMP showing persistent hyponatremia with sodium of 126 as patient awaiting paracentesis and hyponatremia is likely secondary to fluid volume overload resulting from excessive ascites. CODE STATUS: Full code DVT prophylaxis: Lovenox Discussed with: Patient, gastroenterology REHABILITATOR and RN Anticipated discharge date: Clinical course to determine, likely 24-[address]: Home Patient was seen independently by Nurse Pracitioner. This document was prepared using [employer] dictation software. Please allow for errors in clinical statistical programmer, while rare they do occur. I reviewed the documentation as provided by the MIRZA above, who is the original author of this note. I agree with the documented assessment and plan, with the following changes: none Objective - Vital Signs Vital signs: Vital Signs Temp 97.8 F 05/14/23 22:14 Pulse 80 05/15/23 08:37 Resp 18 05/15/23 08:37 BP 120/77 05/15/23 08:37 Pulse Ox 94 L 05/15/23 08:37 FiO2 Intake & Output 05/14/23 05/15/23 05/15/23 18:59 06:59 18:59 Weight 84.368 kg - Labs CBC & Chem 7: 05/15/23 11:40 05/15/23 11:40 Labs: Abnormal Lab Results - Last 24 Hours (Table) 05/14/23 05/14/23 05/14/23 Range/Units 22:00 22:00 22:00 Hgb 10.9 L (11.4-16.0) gm/dL Hct 33.3 L (34.0-46.0) % RDW 16.4 H (11.5-15.5) % Lymphocytes # 0.4 L (1.0-4.8) k/uL PT 13.9 H (10.0-12.5) sec INR 1.3 H (<1.2) APTT 41.2 H (22.0-30.0) sec Sodium 125 L (137-145) mmol/L Chloride 94 L (98-107) mmol/L BUN 23 H (7-17) mg/dL Glucose 106 H (74-99) mg/dL POC Glucose (mg/dL) (70-110) mg/dL Calcium 8.2 L (8.4-10.2) mg/dL Alkaline Phosphatase 158 H (38-126) U/L Total Protein 5.0 L (6.3-8.2) g/dL Albumin 2.9 L (3.5-5.0) g/dL 05/15/23 Range/Units 07:59 Hgb (11.4-16.0) gm/dL Hct (34.0-46.0) % RDW (11.5-15.5) % Lymphocytes # (1.0-4.8) k/uL PT (10.0-12.5) sec INR (<1.2) APTT (22.0-30.0) sec Sodium (137-145) mmol/L Chloride (98-107) mmol/L BUN (7-17) mg/dL Glucose (74-99) mg/dL POC Glucose (mg/dL) 116 H (70-110) mg/dL Calcium (8.4-10.2) mg/dL Alkaline Phosphatase (38-126) U/L Total Protein (6.3-8.2) g/dL Albumin (3.5-5.0) g/dL
[2023-05-15 17:22] LABS: Glucose,Whole Blood 110 mg/dL (70-110)
[2023-05-15] MEDS: allopurinoL 100 MG TAB PO SCH (20:18)
[2023-05-15] MEDS: MONTELUKAST 10 MG TAB PO SCH (20:18)
[2023-05-15] MEDS: FERROUS SULFATE 325 MG TAB PO SCH (20:18)
[2023-05-15] MEDS: THIAMINE 100 MG TAB PO SCH (20:18)
[2023-05-15 20:35] LABS: Glucose,Whole Blood 127 mg/dL (70-110)
[2023-05-15] MEDS: hydrOXYzine HCL 25 MG TAB PO SCH (20:42)
[2023-05-16] MEDS: MORPHINE SULFATE 4 MG/ML SYRINGE IV PRN ×4 (00:34→21:30)
[2023-05-16] MEDS: FUROSEMIDE 20 MG TAB PO SCH ×2 (05:15→20:18)
[2023-05-16] MEDS: ENOXAPARIN 40 MG/0.4 ML SYRINGE SQ SCH (07:35)
[2023-05-16] MEDS: ESCITALOPRAM 5 MG TAB PO SCH (07:36)
[2023-05-16] MEDS: ESCITALOPRAM 20 MG TAB PO SCH (07:36)
[2023-05-16] MEDS: MIDODRINE 5 MG TAB PO SCH ×3 (07:36→16:52)
[2023-05-16 08:16] LABS: Glucose,Whole Blood 88 mg/dL (70-110)
[2023-05-16] MEDS: INSULIN ASPART (NovoLOG) 100 UNIT/ML VIAL SQ SCH ×4 (08:31→21:30)
[2023-05-16] MEDS: PANTOPRAZOLE 40 MG/10 ML VIAL IV SCH (08:34)
[2023-05-16 08:45] LABS: Anisocytosis Slight; HCT 31.9 % (34.0-46.0); HGB 10.3 gm/dL (11.4-16.0); MCH 28.7 pg (25.0-35.0); MCHC 32.3 g/dL (31.0-37.0); MCV 88.9 fL (80.0-100.0); Mean Platelet Volume 8.1; Platelet Count 199 k/uL (150-450); RBC 3.58 m/uL (3.80-5.40); RDW 16.2 % (11.5-15.5); WBC 3.6 k/uL (3.8-10.6)
[2023-05-16 08:58] LABS: ALT 13 U/L (4-34); AST 32 U/L (14-36); African American GFR (CKD) 72 (>60 ml/min/1.73 sqM); Albumin 2.9 g/dL (3.5-5.0); Albumin/Globulin Ratio 1.5; Alkaline Phosphatase 114 U/L (38-126); Anion Gap 8 mmol/L; Blood Urea Nitrogen 21 mg/dL (7-17); Calcium 8.1 mg/dL (8.4-10.2); Carbon Dioxide 21 mmol/L (22-30); Chloride 95 mmol/L (98-107); Glucose 77 mg/dL (74-99); Magnesium 1.9 mg/dL (1.6-2.3); Non-African American GFR(CKD) 62 (>60 ml/min/1.73 sqM); Potassium 3.9 mmol/L (3.5-5.1); Sodium 124 mmol/L (137-145); Total Bilirubin 0.8 mg/dL (0.2-1.3); Total Protein 4.9 g/dL (6.3-8.2)
[2023-05-16] MEDS: FOLIC ACID 1 MG TAB PO SCH (12:23)
[2023-05-16 12:29] LABS: Glucose,Whole Blood 104 mg/dL (70-110)
[2023-05-16 17:11] LABS: Glucose,Whole Blood 107 mg/dL (70-110)
--- NOTE | 2023-05-16 17:45 | P.PN ---
Subjective Progress Note Date: 05/16/23 Hospital course: Patient is a very pleasant 82-year-old female with a past medical history of advanced nonalcoholic steatohepatitis with cirrhosis requiring weekly paracentesis, atrial fibrillation not on anticoagulation, hypertension, hyperlipidemia, fibromyalgia, previous PE, esophageal varices status post banding, type II ker-kmzyccc-sthaneruh diabetes mellitus with neuropathy of bilateral feet, hypothyroidism,,. She presented to the emergency department 05/14/23 with a chief complaint of worsening abdominal pain and distention, patient was scheduled for paracentesis on 05/15/23 outpatient but stated that she could not wait any longer and presented to the emergency department requesting for paracentesis to be completed because she could not wait any longer. Patient underwent full evaluation in the emergency department. CBC showing mild normocytic anemia with hemoglobin 10.9, normal WBC count of 6.4 and platelet count of 275. Coagulation profile showing elevated PT of 13.9, INR 1.3, and PTT is 41.2. BMP revealing hyponatremia with sodium 125, hypochloremia with chloride of 94, and prerenal azotemia with BUN of 29. Glucose was stable at 106. Liver profile revealed elevated alkaline phosphatase of 158. Troponin was 0.014. Ammonia level less than 9 and proBNP was 1670. EKG completed showing atrial fibrillation at 72 bpm. Chest x-ray negative for acute ca rdiopulmonary process. Patient admitted under our services with consultation to gastroenterology and interventional radiology for ultrasound-guided paracentesis. MELD score 9 upon arrival. Physical exam: Patient is day 1 status post paracentesis with a documented removal of 6.1 L of straw-colored fluid. Patient reports she felt better for a few hours but states she rapidly began filling back with fluid in her abdomen again. Upon assessment this morning patient's abdomen is again taught distended cirrhotic abdomen. Vital signs reviewed and stable. General: Nontoxic, no distress and appears stated age. Derm: Skin warm and dry, jaundiced Head: Atraumatic, normocephalic and symmetric. Eyes: EOMs intact, no lid lag, and scleral icteric Mouth: no lip lesions, mucus membranes moist Cardiovascular: regular rate and rhythm with normal S1S2, no murmur, positive posterior tibial pulses bilaterally, and cap refill < 2 seconds. Lungs: Respirations even, regular, and unlabored on room air. Lungs CTA bilaterally, no rhonchi, no rales, no wheezing, and no accessory muscle usage. Abdominal: Taught distended cirrhotic abdomen,, no guarding, no appreciable organomegaly Ext: ROM intact. No gross muscle atrophy, no edema, no contractures Neuro: Speech clear, face symmetrical and CN II-XII grossly intact with no noted focal neuro deficits Psych: Alert and oriented to person, place, time, and situation. Appropriate and pleasant affect. Assessment and Plan of Care: Advanced cirrhosis secondary to ALFONSO Hypochloremic Hyponatremia believed to be secondary to fluid volume overload resulting from ascites, worsening Chronic persistent Atrial fibrillation History of PE Hypertension Hyperlipidemia -Meld score 9 upon arrival -Interventional radiology completed ultrasound-guided paracentesis on 05/15/23 with a documented removal of 6.1 L of straw-colored fluid. -Gastroenterology consulted as patient follows outpatient with Dr. Maciel outpatient. -Continue Lasix 40 mg daily and 20 mg nightly. -Continue midodrine 2.5 mg 3 times daily with meals -Continue symptomatic care and pain management. -Nephrology consulted for worsening hyponatremia status post paracentesis Hav-zkilfwa-ptsjhyojb diabetes mellitus2 -Hold Januvia and continue glycemic protocol with NovoLog sliding scale. Anemia of chronic disease secondary to ALFONSO -Continue ferrous sulfate 325 mg nightly. Data and imaging reviewed: Vital signs reviewed. Blood pressure 115/57, heart rate 79, respiratory rate 18, temp 97.8F, and SpO2 of 97% on room air. Morning labs reviewed. CBC completed showing leukopenia with WBC count of 3.6, normocytic anemia with hemoglobin of 10.3. BMP revealing hyponatremia with sodium of 124, hypochloremia with chloride of 95, and hypocarbia with bicarb of 21. BUN is also slightly elevated at 21 with a normal creatinine of 0.88 and GFR of 62. Liver enzymes normal findings this morning. Albumin low at 2.9. Magnesium normal findings at 1.9. CODE STATUS: Full code DVT prophylaxis: Lovenox Discussed with: Patient and RN Anticipated discharge date: Clinical course to determine Anticipated discharge place: Home with palliative care Patient was seen independently by Nurse Pracitioner. This document was prepared using flux - [employer] dictation software. Please allow for errors in broommaking supervisor, while rare they do occur. Santino White NP rendered care for this patient independently, reviewed the findings and plan as documented in the note above. I did not physically speak with or examine the patient on this date. Objective - Vital Signs Vital signs: Vital Signs Temp 97.8 F 05/16/23 07:34 Pulse 79 05/16/23 07:34 Resp 18 05/16/23 07:34 BP 115/57 05/16/23 07:34 Pulse Ox 97 05/16/23 07:34 FiO2 Intake & Output 05/15/23 05/16/23 05/16/23 18:59 06:59 18:59 Intake Total 180 Balance 180 Weight 84.368 kg Intake: Oral 180 Other: Voiding Method External Catheter # Voids 200 3 - Labs CBC & Chem 7: 05/16/23 06:07 05/16/23 06:07 Labs: Abnormal Lab Results - Last 24 Hours (Table) 05/15/23 05/15/23 05/15/23 Range/Units 11:40 11:40 20:34 WBC (3.8-10.6) k/uL RBC (3.80-5.40) m/uL Hgb 11.0 L (11.4-16.0) gm/dL Hct (34.0-46.0) % RDW 16.3 H (11.5-15.5) % Sodium 126 L (137-145) mmol/L Chloride (98-107) mmol/L Carbon Dioxide 20 L (22-30) mmol/L BUN 22 H (7-17) mg/dL POC Glucose (mg/dL) 127 H (70-110) mg/dL Calcium 8.3 L (8.4-10.2) mg/dL Alkaline Phosphatase 156 H (38-126) U/L Total Protein 4.8 L (6.3-8.2) g/dL Albumin 2.7 L (3.5-5.0) g/dL 05/16/23 05/16/23 Range/Units 06:07 06:07 WBC 3.6 L (3.8-10.6) k/uL RBC 3.58 L (3.80-5.40) m/uL Hgb 10.3 L (11.4-16.0) gm/dL Hct 31.9 L (34.0-46.0) % RDW 16.2 H (11.5-15.5) % Sodium 124 L (137-145) mmol/L Chloride 95 L (98-107) mmol/L Carbon Dioxide 21 L (22-30) mmol/L BUN 21 H (7-17) mg/dL POC Glucose (mg/dL) (70-110) mg/dL Calcium 8.1 L (8.4-10.2) mg/dL Alkaline Phosphatase (38-126) U/L Total Protein 4.9 L (6.3-8.2) g/dL Albumin 2.9 L (3.5-5.0) g/dL
[2023-05-16] MEDS: FERROUS SULFATE 325 MG TAB PO SCH (20:18)
[2023-05-16] MEDS: MONTELUKAST 10 MG TAB PO SCH (20:18)
[2023-05-16] MEDS: allopurinoL 100 MG TAB PO SCH (20:18)
[2023-05-16] MEDS: hydrOXYzine HCL 25 MG TAB PO SCH (20:18)
[2023-05-16] MEDS: THIAMINE 100 MG TAB PO SCH (20:18)
[2023-05-16 21:06] LABS: Glucose,Whole Blood 130 mg/dL (70-110)
[2023-05-17] MEDS: FUROSEMIDE 20 MG TAB PO SCH (05:33)
[2023-05-17] MEDS: MORPHINE SULFATE 4 MG/ML SYRINGE IV PRN ×4 (06:26→21:44)
[2023-05-17 07:10] LABS: Glucose,Whole Blood 124 mg/dL (70-110)
[2023-05-17] MEDS: INSULIN ASPART (NovoLOG) 100 UNIT/ML VIAL SQ SCH ×4 (08:27→21:33)
[2023-05-17] MEDS: ENOXAPARIN 40 MG/0.4 ML SYRINGE SQ SCH (08:34)
[2023-05-17] MEDS: MIDODRINE 5 MG TAB PO SCH ×3 (08:35→17:07)
[2023-05-17] MEDS: ESCITALOPRAM 5 MG TAB PO SCH (08:35)
[2023-05-17] MEDS: ESCITALOPRAM 20 MG TAB PO SCH (08:35)
[2023-05-17] MEDS: PANTOPRAZOLE 40 MG/10 ML VIAL IV SCH (08:48)
[2023-05-17] MEDS: FOLIC ACID 1 MG TAB PO SCH (11:52)
--- NOTE | 2023-05-17 12:16 | P.NPCON ---
History of Present Illness - Reason for Consult hyponatremia - History of Present Illness Patient is an 82-year-old female with history of nonalcoholic liver disease. She is admitted to the hospital with complaints of increased abdominal distention as well as lower extremity swelling. She is receiving paracentesis on a weekly basis. Paracentesis was performed on 05/15/2023 with about 6 L of fluid removed Serum sodium has been low since March of this year. Sodium was 125 on initial admission and has decreased to 123 today. He shouldn't has been maintained on oral Lasix. Patient did admit to increased intake of salt. Serum creatinine at 0.8 mg/dL. Blood pressure fluctuates with systolic ranging between 107-1 35 mmHg. Currently maintained on low-dose midodrine. 24 hour urine output at 1 L Review of Systems As per HPI Past Medical History Past Medical History: Atrial Fibrillation, Asthma, Cancer, Diabetes Mellitus, Fibromyalgia, GERD/Reflux, Hyperlipidemia, Liver Disease, Osteoarthritis (OA), Pulmonary Embolus (PE), Thyroid Disorder Additional Past Medical History / Comment(s): Pt recently admitted to [facility] on 08/14/20 with decompensated liver cirrhosis 2ndary to ALFONSO with ascities/acute di arrhea and anemia with transfusion. Other hx: Nonalcoholic fatty liver, liver cirrhosis, ascities with multiple paracentesis and has albumin infusions, esophageal varicies with banding, NIDDM type II, neuropathy bilateral legs/feet, spinal stenosis/low back pain with R side radiculopathy and lately has had pain down L leg, recent bilateral lower leg edema, PE after leg fracture, overactive bladder, hypothyroid, sinus problems, vertigo, bilateral macular degeneration,skin cancer, cellulits to left lower extemity on antibiotics 11/13/20 History of Any Multi-Drug Resistant Organisms: None Reported Past Surgical History: Adenoidectomy, Appendectomy, Back Surgery, Breast Surgery, Hysterectomy, Joint Replacement, Orthopedic Surgery, Tonsillectomy Additional Past Surgical History / Comment(s): Multiple large volume p aracentesis procedures, lower back and cervical fusions, bilateral total knees, bilateral total shoulders, bilateral carpal tunnel releases, bilateral hand trigger finger releases, R foot bone spur removed, R leg fracture/hardware removed, R breast fatty tumor removed, EGD with esophageal varicies banded, colonoscopy, skin cancer removed, bilateral cataracts removed., right chest mediport Past Anesthesia/Blood Transfusion Reactions: Motion Sickness, Postoperative Nausea & Vomiting (PONV) Additional Past Anesthesia/Blood Transfusion Reaction / Comment(s): previous blood transfusions at [facility] Smoking Status: Former smoker - Past Family History Mother History Unknown: Yes Family Medical History: No Reported History Additional Family Medical History / Comment(s): Mother was healthy and lived to be 87yrs old. Father History Unknown: Yes Additional Family Medical History / Comment(s): Father in a MVA Daughter(s) Family Medical History: Cancer Medications and Allergies Home Medications Medication Instructions Recorded Confirmed Type Montelukast [Singulair] 10 mg PO HS@209903/23/14 05/14/23 History EPINEPHrine (Auto Inject) [Epipen] 0.3 mg IM ONCE PRN 04/13/20 05/14/23 History Folic Acid 1 mg PO DAILY@1200 30 Days #30 tab 09/03/20 05/14/23 Rx Escitalopram [Lexapro] 5 mg PO DAILY 10/12/20 05/14/23 History sitaGLIPtin [Januvia] 50 mg PO DAILY@0600 12/21/20 05/14/23 History Furosemide [Lasix] 40 mg PO DAILY@0600 01/22/21 05/14/23 History Thiamine [Vitamin B-1] 100 mg PO HS@209901/22/21 05/14/23 History Ferrous Sulfate [Iron (65 MG 325 mg PO HS@209903/22/21 05/14/23 History Elemental)] Furosemide [Lasix] 20 mg PO HS@209901/31/22 05/14/23 History allopurinoL [Zyloprim] 100 mg PO HS 01/31/22 05/14/23 History Bismuth Subsalicylate 262 - 524 mg PO Q1H PRN MDD 120 mls 04/03/23 05/14/23 History [Pepto-Bismol] Ergocalciferol (Vitamin D2) 1,250 mcg PO WESA 04/03/23 05/14/23 History [Drisdol (50,000 Iu)] Fluticasone Nasal [place] [Flonase 1 spray EA NOSTRIL BID PRN 04/03/23 05/14/23 History Nasal [place]] HYDROcodone/APAP 10-325MG [[place] 1 tab PO QID PRN #12 tab 04/07/23 05/14/23 Rx 10-325] Escitalopram [Lexapro] 20 mg PO DAILY 05/14/23 05/14/23 History Midodrine HCl [ProAmantine] 2.5 mg PO TID 05/14/23 05/14/23 History hydrOXYzine HCL [Atarax] 25 mg PO DAILY PRN 05/14/23 05/14/23 History hydrOXYzine HCL [Atarax] 25 mg PO HS 05/14/23 05/14/23 History Allergies Allergy/AdvReac Type Severity Reaction Status Date / Time venom-wasp [Wasp Venom] Allergy Severe Swelling Verified 05/14/23 20:38 adhesive Allergy Unknown Rash/Hives Verified 05/14/23 20:38 amoxicillin [Amoxicillin] Allergy Unknown Rash/Hives, Verified 05/14/23 20:38 itching fenofibrate nanocrystallized Allergy Unknown Rash/Hives,joint Verified 05/14/23 20:38 [From Tricor] pain fenofibrate,micronized Allergy Unknown Rash/Hives, Verified 05/14/23 20:38 [From Tricor] joint pain hydrochlorothiazide Allergy Unknown Rash/Hives Verified 05/14/23 20:38 Neuromuscular Blockers, Allergy Unknown Rash/Hives Verified 05/14/23 20:38 Steroidal [Steroidal Neuromuscular Blockers] Penicillins Allergy Unknown Rash/Hives, Verified 05/14/23 20:38 red skin shellfish derived Allergy Unknown SKIN RED Verified 05/14/23 20:38 AND WARM simvastatin [From Zocor] Allergy Unknown Rash/Hives, Verified 05/14/23 20:38 joint pain Zfjlowj-NPT-HaN Reductase Allergy Unknown Rash/Hives, Verified 05/14/23 20:38 Inhibitor joint pain [Ssuzhhv-Cqa-Jon Reductase Inhibitor] venom-honey bee Allergy Unknown Swelling Verified 05/14/23 20:38 [bee venom (honey bee)] cat dander Allergy Rash/Hives Verified 05/14/23 20:38 ciprofloxacin HCl Allergy Unknown Verified 05/14/23 20:38 [From Cipro] sulfamethoxazole Allergy Rash/Hives Verified 05/14/23 20:38 talc Allergy Rash/Hives Verified 05/14/23 20:38 walnut Allergy Rash/Hives Verified 05/14/23 20:38 clarithromycin AdvReac warm and Verified 05/14/23 20:38 flushed lactose AdvReac Abdominal Verified 05/14/23 20:38 Pain minocycline AdvReac warm and Verified 05/14/23 20:38 flushed peanut [Peanut Butter] AdvReac Nausea Verified 05/14/23 20:38 prednisone AdvReac Nausea Verified 05/14/23 20:38 soy AdvReac Nausea & Verified 05/14/23 20:38 Vomiting Physical Exam Vitals: Vital Signs Temp Pulse Resp BP Pulse Ox 05/17/23 11:53 98 F 65 18 112/61 96 05/17/23 08:55 73 18 05/17/23 07:47 97.8 F 73 18 106/51 99 05/17/23 02:00 97.7 F 68 16 166/83 91 L 05/16/23 20:03 97.7 F 71 16 135/77 98 05/16/23 16:53 78 107/65 05/16/23 12:25 97.7 F 75 16 110/61 100 Intake and Output 05/16/23 05/17/23 05/17/23 22:59 06:59 14:59 Intake Total 540 830 Output Total 400 620 Balance 140 210 Intake: Oral 540 830 Output: Urine 400 620 Other: Voiding Method Bedside Commode Bedside Commode External Catheter External Catheter # Voids 1 2 # Bowel Movements 0 Agent is awake, comfortable, alert oriented 3 No acute distress Examination of the heart S1 and S2 Examination of the lungs bilateral breath sounds are heard Abdomen is soft nontender, distended with ascites Examination of lower extremities shows chronic skin changes with peeling of the skin noted and wrinkling noted suggesting recent decrease in edema PLATING OPERATOR exam grossly intact Results - Lab Results Most recent lab results Calcium 8.1 mg/dL (8.4-10.2) L 05/16/23 06:07 Phosphorus 3.6 mg/dL (2.5-4.5) 05/14/23 22:00 Magnesium 1.9 mg/dL (1.6-2.3) 05/16/23 06:07 05/16/23 06:07 05/17/23 10:20 Assessment and Plan Assessment: 1. Hyponatremia associated with chronic liver disease. Status post recent diuresis with decreasing sodium. I will hold Lasix. Random urine sodium was ordered. Patient may need gentle IV hydration and we will likely need to accept a sodium of around 125-1 26 mg/L as long as patient is stable. She is also advised to restrict salt intake. Patient admitted to increased intake of salt recently. Urine osmolality has also been ordered. 2. Nonalcoholic liver cirrhosis needing paracentesis weekly. Status post paracentesis on 05/15/2023 with 6.1 L 3. Chronic A. fib 4. Type 2 diabetes Plan: Check random urine sodium and urine osmolality Restrict salt intake Hold Lasix Add saline at 50 mL an hour for 6-8 hours. Repeat sodium this evening Thank you for the consultation. We will continue to follow the patient with you during her hospitalization.
[2023-05-17 12:25] LABS: Glucose,Whole Blood 107 mg/dL (70-110)
[2023-05-17 13:30] LABS: HCT 33.2 % (37.2-46.3); HGB 10.8 d/dL (12.0-15.0); MCH 27.9 pg (27.0-32.0); MCHC 32.5 d/dL (32.0-37.0); MCV 85.8 FL (80.0-97.0); Mean Platelet Volume 10.2 FL (9.5-12.2); NRBC Per 100 WBC 0 X 10*3/uL (0.00-0.01); Platelet Count 242 X 10*3/uL (140-440); RBC 3.87 X 10*6/uL (4.10-5.20); RDW 15.4 % (11.5-14.5); WBC 4.43 X 10*3/uL (4.50-10.00)
[2023-05-17] MEDS: SODIUM CHLORIDE 0.9% 1,000 ML IV SCH (13:31)
[2023-05-17 13:38] LABS: ALT 12 U/L (8-44); AST 27 U/L (13-35); Albumin 3.4 d/dL (3.8-4.9); Albumin/Globulin Ratio 2.43 Ratio (1.60-3.17); Alkaline Phosphatase 143 U/L (41-126); Blood Urea Nitrogen 19.2 mg/dL (9.0-27.0); Calcium 8.7 mg/dL (8.7-10.3); Carbon Dioxide 23.8 mmol/L (21.6-31.8); Chloride 90 mmol/L (96-109); Globulin 1.4 d/dL (1.6-3.3); Glucose 102 mg/dL (70-110); Potassium 4.5 mmol/L (3.5-5.5); Sodium 126 mmol/L (135-145); Total Bilirubin 0.5 mg/dL (0.3-1.2); Total Protein 4.8 d/dL (6.2-8.2)
[2023-05-17 17:02] LABS: Glucose,Whole Blood 115 mg/dL (70-110)
--- NOTE | 2023-05-17 17:46 | P.PN ---
Subjective Progress Note Date: 05/17/23 Hospital course: Patient is a very pleasant 82-year-old female with a past medical history of advanced nonalcoholic steatohepatitis with cirrhosis requiring weekly paracentesis, atrial fibrillation not on anticoagulation, hypertension, hyperlipidemia, fibromyalgia, previous PE, esophageal varices status post banding, type II [id number]-hvmjnotar diabetes mellitus with neuropathy of bilateral feet, hypothyroidism,,. She presented to the emergency department 05/14/23 with a chief complaint of worsening abdominal pain and distention, patient was scheduled for paracentesis on 05/15/23 outpatient but stated that she could not wait any longer and presented to the emergency department requesting for paracentesis to be completed because she could not wait any longer. Patient underwent full evaluation in the emergency department. CBC showing mild normocytic anemia with hemoglobin 10.9, normal WBC count of 6.4 and platelet count of 275. Coagulation profile showing elevated PT of 13.9, INR 1.3, and PTT is 41.2. BMP revealing hyponatremia with sodium 125, hypochloremia with chloride of 94, and prerenal azotemia with BUN of 29. Glucose was stable at 106. Liver profile revealed elevated alkaline phosphatase of 158. Troponin was 0.014. Ammonia level less than 9 and proBNP was 1670. EKG completed showing atrial fibrillation at 72 bpm. Chest x-ray negative for acute ca rdiopulmonary process. Patient admitted under our services with consultation to gastroenterology and interventional radiology for ultrasound-guided paracentesis. MELD score 9 upon arrival. Physical exam: Patient is day 2 status post paracentesis and has noted significant worsening of ascites. She reports feeling "Bloated" everywhere with mild abdominal discomfort due to the distention.. She otherwise denies any complaints or needs at this time. Vital signs reviewed and stable. General: Nontoxic, no distress and appears stated age. Derm: Skin warm and dry, jaundiced Head: Atraumatic, normocephalic and symmetric. Eyes: EOMs intact, no lid lag, and scleral icteric Mouth: no lip lesions, mucus membranes moist Cardiovascular: regular rate and rhythm with normal S1S2, no murmur, positive posterior tibial pulses bilaterally, and cap refill < 2 seconds. Lungs: Respirations even, regular, and unlabored on room air. Lungs CTA bilaterally, no rhonchi, no rales, no wheezing, and no accessory muscle usage. Abdominal: Taught distended cirrhotic abdomen,, no guarding, no appreciable organomegaly Ext: ROM intact. No gross muscle atrophy, no edema, no contractures Neuro: Speech clear, face symmetrical and CN II-XII grossly intact with no noted focal neuro deficits Psych: Alert and oriented to person, place, time, and situation. Appropriate and pleasant affect. Assessment and Plan of Care: Patient is a very pleasant 82-year-old female with advanced nonalcoholic steatohepatitis currently requiring weekly paracentesis. Patient reports she was previously having 12-16 L removed at a time each week, however she states she began having recurrent syncopal episodes and blood pressures were unable to tolerate large volume paracentesis and they have been removing anywhere from 4-6 L at a time. Patient reports she is no longer able to wait an entire week secondary to significant ascites. Advanced cirrhosis secondary to ALFONSO Hypochloremic Hyponatremia believed to be secondary to fluid volume overload resulting from ascites, worsening hyponatremia with worsening ascites Chronic persistent Atrial fibrillation History of PE Hypertension Hyperlipidemia -Meld score 9 upon arrival -Interventional radiology completed ultrasound-guided paracentesis on 05/15/23 with a documented removal of 6.1 L of straw-colored fluid. -Interventional radiology reconsulted as patient will require a repeat paracentesis. -Gastroenterology consulted as patient follows outpatient with Dr. Raheem malik, but was unable to see and states they will follow-up with patient in their office after discharge. -Nephrology consulted for worsening hyponatremia status post paracentesis -Continue Lasix 40 mg daily and 20 mg nightly. -Continue midodrine 2.5 mg 3 times daily with meals -Continue symptomatic care and pain management. -Order placed for TSH and repeat sodium levels. Phe-qhfsdfz-pbsgrsgcl diabetes mellitus2 -Hold Januvia and continue glycemic protocol with NovoLog sliding scale. Anemia of chronic disease secondary to ALFONSO -Continue ferrous sulfate 325 mg nightly. Data and imaging reviewed: Vital signs reviewed. Blood pressure 106/51, heart rate 73, respiratory rate 18, temp 97.8F, and SpO2 of 99% on room air. Morning labs reviewed. CBC showing normocytic anemia with hemoglobin stable at 10.8 and leukopenia with WBC count of 4.43. BMP revealing sodium 126, chloride 90, and blood glucose of 124. Liver profile revealing persistently elevated alkaline phosphatase of 143. CODE STATUS: Full code DVT prophylaxis: Lovenox Discussed with: Patient and RN Anticipated discharge date: Clinical course to determine Anticipated discharge place: Home with palliative care Patient was seen independently by Nurse Pracitioner. This document was prepared using [employer] dictation software. Please allow for errors in academic services professional, while rare they do occur. Santino White NP rendered care for this patient independently, reviewed the findin gs and plan as documented in the note above. I did not physically speak with or examine the patient on this date. Objective - Vital Signs Vital signs: Vital Signs Temp 97.8 F 05/17/23 07:47 Pulse 73 05/17/23 08:55 Resp 18 05/17/23 08:55 BP 106/51 05/17/23 07:47 Pulse Ox 99 05/17/23 07:47 FiO2 Intake & Output 05/16/23 05/17/23 05/17/23 18:59 06:59 18:59 Intake Total 540 1190 Output Total 400 620 Balance 140 570 Intake: Oral 540 1190 Output: Urine 400 620 Other: Voiding Method External Catheter Bedside Commode Bedside Commode External Catheter External Catheter # Voids 1 2 # Bowel Movements 0 - Labs CBC & Chem 7: 05/17/23 05:59 05/17/23 16:32 Labs: Abnormal Lab Results - Last 24 Hours (Table) 05/16/23 05/17/23 Range/Units 21:05 07:09 POC Glucose (mg/dL) 130 H 124 H (70-110) mg/dL
[2023-05-17 20:49] LABS: Glucose,Whole Blood 173 mg/dL (70-110)
[2023-05-17] MEDS: FERROUS SULFATE 325 MG TAB PO SCH (21:31)
[2023-05-17] MEDS: MONTELUKAST 10 MG TAB PO SCH (21:31)
[2023-05-17] MEDS: THIAMINE 100 MG TAB PO SCH (21:31)
[2023-05-17] MEDS: allopurinoL 100 MG TAB PO SCH (21:31)
[2023-05-17] MEDS: hydrOXYzine HCL 25 MG TAB PO SCH (21:32)
[2023-05-18] MEDS: MORPHINE SULFATE 4 MG/ML SYRINGE IV PRN ×4 (03:36→21:03)
[2023-05-18] MEDS: ESCITALOPRAM 20 MG TAB PO SCH (07:06)
[2023-05-18] MEDS: ESCITALOPRAM 5 MG TAB PO SCH (07:06)
[2023-05-18] MEDS: MIDODRINE 5 MG TAB PO SCH ×3 (07:06→18:11)
[2023-05-18] MEDS: SODIUM CHLORIDE 0.9% 1,000 ML IV SCH (07:08)
[2023-05-18 07:40] LABS: Glucose,Whole Blood 137 mg/dL (70-110)
[2023-05-18 07:49] LABS: African American GFR (CKD) 83 (>60 ml/min/1.73 sqM); Anion Gap 8 mmol/L; Blood Urea Nitrogen 19 mg/dL (7-17); Carbon Dioxide 20 mmol/L (22-30); Chloride 96 mmol/L (98-107); Glucose 128 mg/dL (74-99); Non-African American GFR(CKD) 72 (>60 ml/min/1.73 sqM); Potassium 5.1 mmol/L (3.5-5.1); Sodium 124 mmol/L (137-145)
[2023-05-18] MEDS: ENOXAPARIN 40 MG/0.4 ML SYRINGE SQ SCH (07:59)
[2023-05-18] MEDS: INSULIN ASPART (NovoLOG) 100 UNIT/ML VIAL SQ SCH ×4 (07:59→21:00)
[2023-05-18] MEDS: LEVOTHYROXINE 50 MCG TAB PO SCH (08:40)
[2023-05-18] MEDS: PANTOPRAZOLE 40 MG/10 ML VIAL IV SCH (08:40)
--- NOTE | 2023-05-18 09:03 | US ---
EXAMINATION TYPE: US abdomen limited DATE OF EXAM: 05/18/2023 COMPARISON: 05/15/2023 CLINICAL INDICATION: Female, 82 years old with history of ascites; hx paracentesis; recent para 3 day s ago/ Technique: Limited ascites noted all four quadrants. Grayscale imaging only. Findings: Small anechoic ascites seen throughout the abdomen. IMPRESSION: Small amount of ascites.
[2023-05-18] MEDS ORDERED: IOPAMIDOL CONTRAST (ORAL USE) VIAL PO PRN (09:37)
--- NOTE | 2023-05-18 12:13 | P.PN ---
Subjective Patient is seen for follow-up for hyponatremia. She has recently been diuresed. Significant improvement in edema noted with declining sodium level. Diuretics held yesterday and patient was started on normal saline at 50 ML per hour. Sodium has improved to 124 today. No significant complaints today Patient is voiding Discussed importance of salt restriction in diet. Objective - Vital Signs Vital signs: Vital Signs Temp 97.8 F 05/18/23 11:11 Pulse 68 05/18/23 11:11 Resp 18 05/18/23 11:11 BP 124/70 05/18/23 11:11 Pulse Ox 99 05/18/23 11:11 FiO2 Intake & Output 05/17/23 05/18/23 05/18/23 18:59 06:59 18:59 Intake Total 600 Balance 600 Intake: Intake, IV Titration 600 Amount Sodium Chloride 0.9% 1, 600 000 ml @ 50 mls/hr IV . Q20H [facility] Rx#:[id number] Other: Voiding Method Bedside Commode Bedside Commode Bedside Commode External Catheter External Catheter External Catheter # Voids 2 - Exam Patient is awake, comfortable, alert oriented 3 No acute distress Examination of the heart S1 and S2 Examination of the lungs bilateral breath sounds are heard Abdomen is soft nontender, distended with ascites Examination of lower extremities shows chronic skin changes with peeling of the skin noted and wrinkling noted suggesting recent decrease in edema PARKING LOT ATTENDANT exam grossly intact - Labs CBC & Chem 7: 05/17/23 05:59 05/18/23 07:19 Labs: Abnormal Lab Results - Last 24 Hours (Table) 05/17/23 05/17/23 05/17/23 Range/Units 05:59 05:59 13:30 WBC 4.43 L (4.50-10.00) X 10*3/uL RBC 3.87 L (4.10-5.20) X 10*6/uL Hgb 10.8 L (12.0-15.0) d/dL Hct 33.2 L (37.2-46.3) % RDW 15.4 H (11.5-14.5) % Sodium 126 L (135-145) mmol/L Chloride 90 L (96-109) mmol/L Carbon Dioxide (22-30) mmol/L Anion Gap 12.20 H (4.00-12.00) mmol/L BUN (7-17) mg/dL Est GFR (CKD-EPI) 57 L (>=60) Glucose (74-99) mg/dL POC Glucose (mg/dL) (70-110) mg/dL Calcium (8.4-10.2) mg/dL Alkaline Phosphatase 143 H (41-126) U/L Total Protein 4.8 L (6.2-8.2) d/dL Albumin 3.4 L (3.8-4.9) d/dL Globulin 1.4 L (1.6-3.3) d/dL TSH 15.800 H (0.350-5.500) UIU/ML Free (T4) Reflex I 0.77 L (0.80-1.80) ng/dL Ur Random Sodium <20 L (40-220) mmol/L 05/17/23 05/17/23 05/17/23 Range/Units 16:32 17:00 20:23 WBC (4.50-10.00) X 10*3/uL RBC (4.10-5.20) X 10*6/uL Hgb (12.0-15.0) d/dL Hct (37.2-46.3) % RDW (11.5-14.5) % Sodium 121 L (135-145) mmol/L Chloride (96-109) mmol/L Carbon Dioxide (22-30) mmol/L Anion Gap (4.00-12.00) mmol/L BUN (7-17) mg/dL Est GFR (CKD-EPI) (>=60) Glucose (74-99) mg/dL POC Glucose (mg/dL) 115 H 173 H (70-110) mg/dL Calcium (8.4-10.2) mg/dL Alkaline Phosphatase (41-126) U/L Total Protein (6.2-8.2) d/dL Albumin (3.8-4.9) d/dL Globulin (1.6-3.3) d/dL TSH (0.350-5.500) UIU/ML Free (T4) Reflex I (0.80-1.80) ng/dL Ur Random Sodium (40-220) mmol/L 05/18/23 05/18/23 Range/Units 07:19 07:24 WBC (4.50-10.00) X 10*3/uL RBC (4.10-5.20) X 10*6/uL Hgb (12.0-15.0) d/dL Hct (37.2-46.3) % RDW (11.5-14.5) % Sodium 124 L (135-145) mmol/L Chloride 96 L (96-109) mmol/L Carbon Dioxide 20 L (22-30) mmol/L Anion Gap (4.00-12.00) mmol/L BUN 19 H (7-17) mg/dL Est GFR (CKD-EPI) (>=60) Glucose 128 H (74-99) mg/dL POC Glucose (mg/dL) 137 H (70-110) mg/dL Calcium 8.0 L (8.4-10.2) mg/dL Alkaline Phosphatase (41-126) U/L Total Protein (6.2-8.2) d/dL Albumin (3.8-4.9) d/dL Globulin (1.6-3.3) d/dL TSH (0.350-5.500) UIU/ML Free (T4) Reflex I (0.80-1.80) ng/dL Ur Random Sodium (40-220) mmol/L Assessment and Plan Assessment: 1. Hyponatremia associated with chronic liver disease. Status post recent diuresis with decreasing sodium. Diuretics held and started saline at 50 ML per hour. Serum sodium has improved. Urine sodium was less than 20. We will likely need to accept a sodium of around 125-1 26 mg/L as long as patient is stable. She is also advised to restrict salt intake. Patient admitted to increased intake of salt recently. 2. Nonalcoholic liver cirrhosis needing paracentesis weekly. Status post paracentesis on 05/15/2023 with 6.1 L 3. Chronic A. fib 4. Type 2 diabetes Plan: continue with saline Repeat sodium later this afternoon Avoid excessive salt intake post discharge
[2023-05-18 12:29] LABS: Glucose,Whole Blood 100 mg/dL (70-110)
[2023-05-18] MEDS: FOLIC ACID 1 MG TAB PO SCH (12:56)
--- NOTE | 2023-05-18 12:57 | CT ---
EXAMINATION TYPE: CT abdomen pelvis wo con CT DLP: 1051 mGycm, Automated exposure control for dose reduction was used. DATE OF EXAM: 05/18/2023 12:45 PM COMPARISON: CT abdomen pelvis most recent from . Abdominal ultrasound 05/18/2023 CLINICAL INDICATION:Female, 82 years old with history of abdominal distension; abdominal distention TECHNIQUE: Standard CT of the abdomen and pelvis following the administration of oral contrast. Cor onal and sagittal reformats were performed. FINDINGS: Limited evaluation due to lack of intravenous contrast. LOWER CHEST: Linear scarring and/or atelectasis within the left lung base. ABDOMEN LIVER: Cirrhotic appearance of the liver. GALLBLADDER AND BILE DUCTS: Unremarkable noncontrast appearance. PANCREAS: Unremarkable noncontrast appearance. SPLEEN: Unremarkable noncontrast appearance. ADRENAL GLANDS: Unremarkable noncontrast appearance.. KIDNEYS AND URETERS: No evidence of hydronephrosis or renal calculus. PELVIS BLADDER: Unremarkable REPRODUCTIVE: The uterus is surgically absent. ABDOMEN & PELVIS STOMACH AND BOWEL: Stomach and duodenum are unremarkable. Enteric contrast reaches the mid small forest l. No focal bowel wall thickening or surrounding inflammatory changes. No evidence of bowel obstructi on. PERITONEUM: No evidence of pneumoperitoneum. Stable nodularity posterior to the right hepatic lobe wi th central calcification measuring at least 2.0 cm. Possible collateral vessel versus other Small to moderate ascites throughout abdomen pelvis. VASCULATURE: Moderate atherosclerotic calcifications are present throughout the abdominal aorta and i ts branches. No evidence of aortic aneurysm. MUSCULOSKELETAL: No acute osseous abnormalities. Remote left inferior pubic rami fracture. Severe rig ht hip osteoarthritic changes. Post surgical changes from left total hip arthroplasty. Remote right p roximal femur fracture. Degenerative changes of the thoracolumbar spine. Posterior fusion changes of the lumbar spine. Grade 1 anterolisthesis of L4 on L5. LYMPH NODES: No gross evidence for lymphadenopathy. SOFT TISSUE/ABDOMINAL WALL: Diffuse anasarca. IMPRESSION: 1. Small to moderate volume ascites throughout abdomen pelvis. 2. Diffuse anasarca. 3. Hepatic cirrhosis.
[2023-05-18 18:07] LABS: Glucose,Whole Blood 124 mg/dL (70-110)
--- NOTE | 2023-05-18 18:51 | P.PN ---
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 Laboratory analysis was consistent with her known cirrhosis. Chest x-ray negative for acute cardiopulmonary process. She was admitted for decompensated nonalcoholic cirrhosis with consultation to gastroenterology and interventional radiology for ultrasound-guided paracentesis. Patient had paracentesis completed on 05/15/23 with removal of 6.1 L of fluid. She developed worsening hyponatremia, nephrology was consulted, and her diuretics subsequently had to be held and she was started on IV fluids. Patient seen and examined at bedside. She complains of feeling very distended. She is having some shortness of breath. She denies any pain. She would like a repeat paracentesis. Vital signs reviewed General: nontoxic, no distress, appears at stated age Cardiovascular: S1S2 reg, no murmur, positive posterior tibial pulse bilateral, Lungs: Decreased breath sounds bilateral, no rhonchi, no rales , no accessory muscle use Abdominal: Grossly distended abdomen, + fluid wave, nontender to palpation, no guarding, no appreciable organomegaly Ext: no gross muscle atrophy, trace edema b/l lower extremities, no contractures Neuro: CN II-XI grossly intact, no focal neuro deficits Psych: Alert, oriented, appropriate affect Assessment/Plan: Decompensated cirrhosis secondary to ALFONSO Hypochloremic Hyponatremia believed to be secondary to fluid volume overload, cirrhosis, diuretics, and hypothyoidism Chronic persistent Atrial fibrillation Hypertension Hyperlipidemia -Paracentesis on 05/15/23 with a documented removal of 6.1 L of straw-colored fluid. - Per abd US not enough fluid for para, on exam patient is grossly distended, will check CT abd and pelvis to rule out mass, obstriction, toxic megacolon as alternative reasons for distension. -Nephrology note reviewed: conitnue with saline, repeat sodium this afternoon -off Lasix 40 mg daily and 20 mg nightly. -Continue midodrine 2.5 mg 3 times daily with meals - d/w hospice nurse and patient will sign on with hospice at discharge. Vee-amyxkbh-dyvojkapg diabetes mellitus2 -Hold Januvia, SSI Anemia of chronic disease secondary to ALFONSO -Ferrous sulfate 325 mg nightly. Hypothyroidism -Under-treated with TSH of 10 -Increase levothyroxine to 50 g daily Imaging: Abdominal ultrasound-small amount of ascites in all 4 quadrants. Told by nursing that her INR there is not enough fluid for paracentesis Data Review: Labs from today include a basic metabolic profile which is remarkable for sodium 124, BUN 19, TSH elevated at 10.7 with free T4 at 0.77 DVT prophylaxis: Lovenox Anticipated discharge date: in 24-[address]: home This dictation was prepared using [employer] voice recognition software. Though every attempt is made to correct errors during dictation some may still exist. Objective - Vital Signs Vital signs: Vital Signs Temp 97.8 F 05/18/23 11:11 Pulse 68 05/18/23 11:11 Resp 18 05/18/23 11:11 BP 124/65 05/18/23 18:12 Pulse Ox 99 05/18/23 11:11 FiO2 Intake & Output 05/17/23 05/18/23 05/18/23 18:59 06:59 18:59 Intake Total 600 Output Total 300 Balance 600 -300 Intake: Intake, IV Titration 600 Amount Sodium Chloride 0.9% 1, 600 000 ml @ 50 mls/hr IV . Q20H [facility] Rx#:[id number] Output: Urine 300 Other: Voiding Method Bedside Commode Bedside Commode Bedside Commode External Catheter External Catheter External Catheter # Voids 2 - Labs CBC & Chem 7: 05/17/23 05:59 05/18/23 07:19 Labs: Abnormal Lab Results - Last 24 Hours (Table) 05/17/23 05/17/23 05/18/23 Range/Units 13:30 20:23 07:19 Sodium 124 L (137-145) mmol/L Chloride 96 L (98-107) mmol/L Carbon Dioxide 20 L (22-30) mmol/L BUN 19 H (7-17) mg/dL Glucose 128 H (74-99) mg/dL POC Glucose (mg/dL) 173 H (70-110) mg/dL Calcium 8.0 L (8.4-10.2) mg/dL Ur Random Sodium <20 L (40-220) mmol/L 05/18/23 05/18/23 Range/Units 07:24 17:40 Sodium (137-145) mmol/L Chloride (98-107) mmol/L Carbon Dioxide (22-30) mmol/L BUN (7-17) mg/dL Glucose (74-99) mg/dL POC Glucose (mg/dL) 137 H 124 H (70-110) mg/dL Calcium (8.4-10.2) mg/dL Ur Random Sodium (40-220) mmol/L
[2023-05-18 20:11] LABS: Glucose,Whole Blood 151 mg/dL (70-110)
[2023-05-18] MEDS: THIAMINE 100 MG TAB PO SCH (21:02)
[2023-05-18] MEDS: allopurinoL 100 MG TAB PO SCH (21:03)
[2023-05-18] MEDS: hydrOXYzine HCL 25 MG TAB PO SCH (21:03)
[2023-05-18] MEDS: FERROUS SULFATE 325 MG TAB PO SCH (21:03)
[2023-05-18] MEDS: MONTELUKAST 10 MG TAB PO SCH (21:05)
[2023-05-19] MEDS: MORPHINE SULFATE 4 MG/ML SYRINGE IV PRN (03:52)
[2023-05-19] MEDS: SODIUM CHLORIDE 0.9% 1,000 ML IV SCH (04:12)
[2023-05-19] MEDS: LEVOTHYROXINE 50 MCG TAB PO SCH (04:15)
[2023-05-19 07:28] LABS: Glucose,Whole Blood 94 mg/dL (70-110)
[2023-05-19 07:32] LABS: ALT 15 U/L (4-34); AST 34 U/L (14-36); African American GFR (CKD) 87 (>60 ml/min/1.73 sqM); Albumin 3.1 g/dL (3.5-5.0); Albumin/Globulin Ratio 1.5; Alkaline Phosphatase 142 U/L (38-126); Anion Gap 8 mmol/L; Blood Urea Nitrogen 18 mg/dL (7-17); Calcium 8.4 mg/dL (8.4-10.2); Carbon Dioxide 21 mmol/L (22-30); Chloride 93 mmol/L (98-107); Globulin 2.1 g/dL; Glucose 84 mg/dL (74-99); Non-African American GFR(CKD) 75 (>60 ml/min/1.73 sqM); Potassium 5.3 mmol/L (3.5-5.1); Sodium 122 mmol/L (137-145); Total Bilirubin 0.6 mg/dL (0.2-1.3); Total Protein 5.2 g/dL (6.3-8.2)
[2023-05-19] MEDS: INSULIN ASPART (NovoLOG) 100 UNIT/ML VIAL SQ SCH ×2 (08:09→12:33)
[2023-05-19] MEDS: PANTOPRAZOLE 40 MG/10 ML VIAL IV SCH (10:09)
[2023-05-19] MEDS: FOLIC ACID 1 MG TAB PO SCH (10:12)
[2023-05-19] MEDS: ESCITALOPRAM 20 MG TAB PO SCH (10:13)
[2023-05-19] MEDS: ENOXAPARIN 40 MG/0.4 ML SYRINGE SQ SCH (10:13)
[2023-05-19] MEDS: ESCITALOPRAM 5 MG TAB PO SCH (10:13)
[2023-05-19] MEDS: MIDODRINE 5 MG TAB PO SCH ×2 (10:13→12:35)
[2023-05-19] MEDS ORDERED: FUROSEMIDE 40 MG TAB PO STA (11:10)
--- NOTE | 2023-05-19 11:51 | P.PN ---
Subjective Patient is seen for follow-up for hyponatremia. She has recently been diuresed. Significant improvement in edema noted with declining sodium level. Patient received IV fluids for about 24 hours with some improvement in serum sodium. Sodium dropped to 122 today. Patient is complaining of increased abdominal distention. There are plans to proceed with hospice care. Patient wants to go home Objective - Vital Signs Vital signs: Vital Signs Temp 97.8 F 05/19/23 11:25 Pulse 79 05/19/23 11:25 Resp 17 05/19/23 11:25 BP 115/62 05/19/23 11:25 Pulse Ox 97 05/19/23 11:25 FiO2 Intake & Output 05/18/23 05/19/23 05/19/23 18:59 06:59 18:59 Intake Total 120 Output Total 300 Balance -300 120 Intake: Oral 120 Output: Urine 300 Other: Voiding Method Bedside Commode Bedside Commode External Catheter External Catheter # Voids 1 2 # Bowel Movements 1 1 - Exam Patient is awake, comfortable, alert oriented 3 No acute distress Abdomen is soft nontender, distended with ascites Examination of lower extremities shows chronic skin changes with peeling of the skin noted and wrinkling noted suggesting recent decrease in edema [employer] exam grossly intact - Labs CBC & Chem 7: 05/17/23 05:59 05/19/23 05:26 Labs: Abnormal Lab Results - Last 24 Hours (Table) 05/18/23 05/18/23 05/19/23 Range/Units 17:40 20:08 05:26 Sodium 122 L (137-145) mmol/L Potassium 5.3 H (3.5-5.1) mmol/L Chloride 93 L (98-107) mmol/L Carbon Dioxide 21 L (22-30) mmol/L BUN 18 H (7-17) mg/dL POC Glucose (mg/dL) 124 H 151 H (70-110) mg/dL Alkaline Phosphatase 142 H (38-126) U/L Total Protein 5.2 L (6.3-8.2) g/dL Albumin 3.1 L (3.5-5.0) g/dL Assessment and Plan Assessment: 1. Hyponatremia associated with chronic liver disease. Status post recent diuresis with decreasing sodium. Diuretics held and started saline at 50 ML per hour. Serum sodium improved but back down to 122 today. Urine sodium was less than 20. We will likely need to accept a sodium of around 125-1 26 mg/L as long as patient is stable. She is also advised to restrict salt intake. Patient admitted to increased intake of salt recently. 2. Nonalcoholic liver cirrhosis needing paracentesis weekly. Status post paracentesis on 05/15/2023 with 6.1 L 3. Chronic A. fib 4. Type 2 diabetes Plan: Can continue off of IV fluids Plans for hospice care Avoid excessive salt intake post discharge
[2023-05-19 11:53] LABS: Glucose,Whole Blood 111 mg/dL (70-110)
[2023-05-19 11:57] VITALS: BP 115/62; PULSE 79; RESP 17; TEMP 97.8
--- NOTE | 2023-05-19 14:53 | P.DS ---
Providers Date of admission: 05/16/23 12:45 Expected date of discharge: 05/19/23 Attending physician: Travis Hodges MD Consults: 05/16/23 12:44 Consult Physician Routine Consulting Provider: Martina Nicolas Consult Reason/Comments: hyponatremia Do you want consulting provider notified?: Yes Primary care physician: Edin Pineda MD Hospital Course: Discharge Diagnosis: Discharged on hospice Decompensated cirrhosis secondary to ALFONSO Hypochloremic Hyponatremia believed to be secondary to fluid volume overload, cirrhosis, diuretics, and hypothyoidism Chronic persistent Atrial fibrillation Hypertension Hyperlipidemia Vxf-ztiendo-ycnswnqbp diabetes mellitus2 Anemia of chronic disease secondary to ALFONSO Hypothyroidism Hospital Course: Patient is an 82-year-old female with nonalcoholic steatohepatitis with cirrhosis requiring weekly paracentesis, atrial fibrillation not on anticoagulation, hypertension, hyperlipidemia, esophageal varices status post banding, type II [id number]-bhxvvjdbo 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 Laboratory analysis was consistent with her known cirrhosis. Chest x-ray negative for acute cardiopulmonary process. She was admitted for decompensated nonalcoholic cirrhosis with consultation to gastroenterology and interventional radiology for ultrasound-guided paracentesis. Patient had paracentesis completed on 05/15/23 with removal of 6.1 L of fluid. She developed worsening hyponatremia, nephrology was consulted, and her diuretics subsequently had to be held and she was started on IV fluids. She underwent repeat abdominal ultrasound that she felt exceedingly distended, this only showed a small amount of ascites. It was followed up by CT abdomen and pelvis which showed again small to moderate amount of ascites with significant subcutaneous edema. Patient and her son met with hospice and elected to sign-on with hospice care. Her home Lasix will be increased to 40 mg twice daily and her Aldactone can be resumed with less concerned about her sodium levels. Patient was discharged home with guarded prognosis but stable at time of discharge. Follow-up: Discussed with hospice nurse and all hospice equipment is in place. She will go home on hospice. To help with symptomatic control her levothyroxine has been increased to 50 g daily. She will again resume her Aldactone, her Lasix was increased to 40 mg twice daily. Patient seen and examined at bedside. She is still feeling somewhat distended. She denies any nausea or vomiting. We discussed the results of her CT scan and she is agreeable to being discharged home on hospice with concentration on her symptomatic control, and not her sodium levels. Vital signs reviewed and stable. General: nontoxic, no distress, appears at stated age Cardiovascular: S1S2 reg, no murmur, positive posterior tibial pulse bilateral, Lungs: CTA bilateral, no rhonchi, no rales , no accessory muscle use Abdominal: soft, distended but non tender, no guarding, no appreciable organomegaly Ext: no gross muscle atrophy, no edema b/l lower extremities, no contractures Neuro: CN II-XI grossly intact, no focal neuro deficits Psych: Alert, oriented, appropriate affect A total of 37 minutes of time were spent preparing this complex discharge summary. Patient was discharged on 05/19/23. This dictation was prepared using [employer] voice recognition software. Though every attempt is made to correct errors during dictation some may still exist. Patient Condition at Discharge: Stable Plan - Discharge Summary New Discharge Prescriptions: New Levothyroxine Sodium [Synthroid] 50 mcg PO DAILY@0630 #30 tab Spironolactone [Aldactone] 25 mg PO AC-BID #60 tablet Continue Montelukast [Singulair] 10 mg PO HS@2100 EPINEPHrine (Auto Inject) [Epipen] 0.3 mg IM ONCE PRN PRN Reason: Anaphylaxis Folic Acid 1 mg PO DAILY@1200 30 Days #30 tab Escitalopram [Lexapro] 5 mg PO DAILY Ferrous Sulfate [Iron (65 MG Elemental)] 325 mg PO HS@2100 allopurinoL [Zyloprim] 100 mg PO HS Ergocalciferol (Vitamin D2) [Drisdol (50,000 Iu)] 1,250 mcg PO WESA Fluticasone Nasal [place] [Flonase Nasal [place]] 1 spray EA NOSTRIL BID PRN PRN Reason: Allergy Symptoms Escitalopram [Lexapro] 20 mg PO DAILY hydrOXYzine HCL [Atarax] 25 mg PO DAILY PRN PRN Reason: Anxiety sitaGLIPtin [Januvia] 50 mg PO DAILY@0600 Thiamine [Vitamin B-1] 100 mg PO HS@2100 Bismuth Subsalicylate [Pepto-Bismol] 262 - 524 mg PO Q1H PRN MDD 120 mls PRN Reason: Gi Upset HYDROcodone/APAP 10-325MG [[place] 10-325] 1 tab PO QID PRN #12 tab PRN Reason: Pain hydrOXYzine HCL [Atarax] 25 mg PO HS Midodrine HCl [ProAmantine] 2.5 mg PO TID Changed Furosemide [Lasix] 40 mg PO BID #0 Discontinued Furosemide [Lasix] 20 mg PO HS@2099 Discharge Medication List Montelukast [Singulair] 10 mg PO HS@209903/23/14 [History] EPINEPHrine (Auto Inject) [Epipen] 0.3 mg IM ONCE PRN 04/13/20 [History] Folic Acid 1 mg PO DAILY@1200 30 Days #30 tab 09/03/20 [Rx] Escitalopram [Lexapro] 5 mg PO DAILY 10/12/20 [History] sitaGLIPtin [Januvia] 50 mg PO DAILY@0600 12/21/20 [History] Thiamine [Vitamin B-1] 100 mg PO HS@209901/22/21 [History] Ferrous Sulfate [Iron (65 MG Elemental)] 325 mg PO HS@209903/22/21 [History] allopurinoL [Zyloprim] 100 mg PO HS 01/31/22 [History] Bismuth Subsalicylate [Pepto-Bismol] 262 - 524 mg PO Q1H PRN MDD 120 mls 04/03/23 [History] Ergocalciferol (Vitamin D2) [Drisdol (50,000 Iu)] 1,250 mcg PO WESA 04/03/23 [History] Fluticasone Nasal [place] [Flonase Nasal [place]] 1 spray EA NOSTRIL BID PRN 04/03/23 [History] HYDROcodone/APAP 10-325MG [[place] 10-325] 1 tab PO QID PRN #12 tab 04/07/23 [Rx] Escitalopram [Lexapro] 20 mg PO DAILY 05/14/23 [History] Midodrine HCl [ProAmantine] 2.5 mg PO TID 05/14/23 [History] hydrOXYzine HCL [Atarax] 25 mg PO DAILY PRN 05/14/23 [History] hydrOXYzine HCL [Atarax] 25 mg PO HS 05/14/23 [History] Furosemide [Lasix] 40 mg PO BID #0 10/24/23 [Rx] Levothyroxine Sodium [Synthroid] 50 mcg PO DAILY@0630 #30 tab 05/19/23 [Rx] Spironolactone [Aldactone] 25 mg PO AC-BID #60 tablet 05/19/23 [Rx] Follow up Appointment(s)/Referral(s): Edin Pineda MD [Primary Care Provider] - 1-2 days Discharge Disposition: HOME WITH HOSPICE
[2023-05-19] MEDS ORDERED: MORPHINE ORAL SOLN 10 MG/5 ML CUP PO PRN (15:26)
== END 2023-05-19 15:35 | disposition hospice, home (50) | DRG 442 ==
LOC: EC 18:01 → 5NMEDONC 19:43 → INTOOBSV 19:43 → 5NMEDONC 20:23 → OBSVTOIN 05-16 12:45
PROVIDERS: ADMIT Internal Medicine; ATTEND Internal Medicine
PROC: 0W9G3ZZ Drainage of Peritoneal Cavity, Percutaneous Approach (ICD-10-PCS; principal; 2023-05-15)
DX: K75.81 Nonalcoholic steatohepatitis (NASH) (principal); E87.1 Hypo-osmolality and hyponatremia; R18.8 Other ascites; I48.19 Other persistent atrial fibrillation; I85.10 Secondary esophageal varices without bleeding; E11.41 Type 2 diabetes mellitus with diabetic mononeuropathy; D63.8 Anemia in other chronic diseases classified elsewhere; E87.8 Other disorders of electrolyte and fluid balance, not elsewhere classified; G57.93 Unspecified mononeuropathy of bilateral lower limbs; Z51.5 Encounter for palliative care; E03.9 Hypothyroidism, unspecified; I10 Essential (primary) hypertension; E87.70 Fluid overload, unspecified; J45.909 Unspecified asthma, uncomplicated; N32.81 Overactive bladder; M79.7 Fibromyalgia; E78.5 Hyperlipidemia, unspecified; F32.A Depression, unspecified; H35.30 Unspecified macular degeneration; K21.9 Gastro-esophageal reflux disease without esophagitis; M19.90 Unspecified osteoarthritis, unspecified site; M48.00 Spinal stenosis, site unspecified; R79.1 Abnormal coagulation profile; Z79.84 Long term (current) use of oral hypoglycemic drugs; Z79.899 Other long term (current) drug therapy; Z87.891 Personal history of nicotine dependence; Z86.711 Personal history of pulmonary embolism; Z85.828 Personal history of other malignant neoplasm of skin; Z98.1 Arthrodesis status; Z96.653 Presence of artificial knee joint, bilateral; Z96.612 Presence of left artificial shoulder joint; Z96.611 Presence of right artificial shoulder joint; M54.50 Low back pain, unspecified; Z88.8 Allergy status to other drugs, medicaments and biological substances; Z88.1 Allergy status to other antibiotic agents; Z88.0 Allergy status to penicillin
CPT/HCPCS: 49083; 71045; 74176; 76705; 80048; 80053; 82140; 83735; 83880; 83935; 84100; 84295; 84300; 84439; 84443; 84484; 85025; 85027; 85610; 85730; 93005; 94760; 96365; 96375; 96376; 99285

== ENCOUNTER 2023-05-22 08:34 | Day surgery (SDC) | payer MEDICARE ==
[2023-05-22 09:26] VITALS: TEMP 98
[2023-05-22 09:44] LABS: Glucose,Whole Blood 131 mg/dL (70-110)
[2023-05-22] MEDS: ALBUMIN HUMAN 25% 50 ML in EMPTY BAG 1 BAG IVPB SCH ×2 (10:19→10:20)
[2023-05-22 10:30] VITALS: RESP 16
[2023-05-22 11:11] VITALS: BP 117/64; PULSE 66
--- NOTE | 2023-05-25 08:37 | US ---
EXAMINATION TYPE: US paracentesis abd w/image DATE OF EXAM: 05/22/2023 10:23 AM CLINICAL INDICATION:Female, 82 years old with history of Ascites; COMPARISON: 05/18/2023 ATTENDING: Dr. Ja Beltran PROCEDURE: Informed consent was obtained. The risks of the procedure were extensively explained incl uding risk of damage to surrounding bowel with perforation and need for additional procedures. Proced ure was performed in the ultrasound procedure suite. Ultrasound imaging of the abdomen demonstrate as citic fluid. An appropriate access site was localized to the right lower abdomen. Timeout was taken p er protocol. The skin was prepped and draped in the usual sterile fashion and then locally anesthetiz ed with 1% lidocaine. The peritoneal cavity was then accessed via a 5-Martiniquais one-step needle/cathete r. Approximately 5500 cc of clear straw-colored fluid was obtained. Postprocedural imaging of the a bdomen demonstrate a minimal amount of abdominal fluid. Patient tolerated procedure well without immediate complication. Hemostasis at the procedural site w as obtained with a sterile bandage placed. The patient was monitored in the holding area following th e procedure and was subsequently discharged in stable condition. IMPRESSION: Ultrasound guided paracentesis, with approximately 5500 cc of clear straw-colored fluid drained. No i mmediate complications were evident.
== END 2023-05-22 11:10 | disposition home or self-care (01) ==
LOC: RADPROMAIN 08:34
PROVIDERS: ATTEND Internal Medicine Gastroenterology
DX: R18.8 Other ascites (principal)
CPT/HCPCS: 49083; J1642